=== PATIENT | male | born 1975 | race Caucasian/White ===

== ENCOUNTER 2020-08-29 08:58 | Emergency (ER) | payer MEDICAID, SELFPAY ==
[2020-08-29 09:07] VITALS: BP 157/73; PULSE 99; RESP 16; TEMP 36.7; O2SAT 100; BMI 20.9
[2020-08-29 09:18] LABS: Glucose, Whole Blood 295 mg/dL (60-115)
--- NOTE | 2020-08-29 09:25 | ED_ITS ---
HPI - General Adult General Chief complaint: General Medical Stated complaint: elevated blood sugar Time Seen by Provider: 08/29/20 09:19 Source: patient Mode of arrival: ambulatory Limitations: no limitations History of Present Illness HPI narrative: patient presents to ED for hyperglycemia. Patient states on Mon day he broke his insulin pump. Patient states he has been controlling his glucose insulin with manual Humalog. Patient still feeling nauseous and vomitting and was referred by PCP to the ED to make sure he is not in DKA. Patient states the highest his fingerstick has been is 500. Presently his fingerstick is in the 200s. Related Data Previous Rx's Medication Instructions Recorded insulin glargine U-300 conc 300 15 unit SUBCUT BEDTIME 30 Days 08/29/20 unit/mL (1.5 mL) subcutaneous pen #1.5 ml insulin syringe-needle U-100 0.3 #150 ea 08/29/20 mL 29 gauge x 1/2 pen needle, diabetic 32 gauge x #50 ea 08/29/20 Allergies Allergy/AdvReac Type Severity Reaction Status Date / Time hydroxyzine [From VISTARIL] Allergy Intermediate RASH, Verified 08/29/20 14:59 ANXIOUS quetiapine [Seroquel] Allergy Unknown Unknown Verified 08/29/20 14:59 Review of Systems Review of Systems: Yes all other systems are reviewed and are negative Constitutional: Constitutional: Reports as per HPI and Reports no additional constitutional complaints Eyes: Eyes: Reports as per HPI and Reports no additional eye complaints ENT: Reports system reviewed and no additional complaints, except as documented and Reports as per HPI Cardiovascular: Cardiovascular: Reports as per HPI and Reports no additional c ardiovascular complaints Respiratory: Respiratory: Reports as per HPI and Reports no additional re spiratory complaints Gastrointestinal: Gastrointestinal: Reports as per HPI, Reports no additional gastrointestinal complaints, Reports nausea and Reports vomiting Genitourinary: Genitourinary: Reports no additional male genitourinary complaints and Reports as per HPI Musculoskeletal: Musculoskeletal: Reports no additional musculoskeletal complaints and Reports as per HPI Neurologic: Reports system reviewed and no additional complaints, except as documented, Reports as per HPI and Reports Abnormal speech present Psychiatric: Psychiatric: Reports no additional psychiatric complaints and Reports as per HPI Endocrine: Endocrine: Reports no additional endocrine complaints and Reports as per HPI Comments: Hyperglycemia [facility] Past Medical History Medical History Diabetes Diabetes type 1, uncontrolled Social History Social History Alcohol intake: current Alcohol intake frequency: a few times a week Smoking Status: Never smoker Use of substances other than those prescribed or required for medical reasons: No Advance Directives: No Advance Directives Information Provided: No Physical Exam Vital Signs: Vital Signs: Last Vital Signs Temp 98.1 F 08/29/20 09:07 Pulse 74 08/29/20 13:04 Resp 18 08/29/20 14:00 BP 115/53 L 08/29/20 13:04 Pulse Ox 95 08/29/20 13:04 Body Mass Index 20.9 Const: General: cooperative, healthy appearing, comfortable, no acute distress and well developed HENMT: Head: Yes normal to inspection and Yes No palpable skull fracture present Eyes: General: appearance normal, both eyes and all related structures Visual Connors: normal visual connors by confrontation Neck: Neck: Yes normal visual inspection, Yes full ROM, Yes no lymphadenopathy, Yes no meningeal signs, Yes trachea midline and No tender Chest: Chest palpation & inspection: normal inspection of the chest, normal palpation of entire chest wall and no localized rib tenderness Resp: Effort & Inspection: normal respiratory effort and able to speak in complete sentences Auscultation: clear to auscultation bilaterally, no crackles, no rales, no rhonchi and no wheezes Cardio: Jugular venous distension: no JVD Heart sounds: S1 normal heart sound present and S2 normal heart sound present GI: Inspection: Yes normal to inspection and No abdominal wall ecchymosis Palpation (GI): Soft to palpation, not firm, nontender, no guarding and not rigid : General: No CVA tenderness and Yes no CVA tenderness Back/Spine/Pelvis: Back: no CVA tenderness, No CVA tenderness and No back tenderness Skin: General skin exam: no rashes or lesions noted Neuro: General: gait normal, no meningeal signs and CN's II-XI intact bilaterally Cranial nerves: Yes CN's II-XII intact bilaterally Speech: Abnormal speech present Extrem: General: Yes normal to inspection and Yes full ROM Psych: Appearance: grossly normal, well kempt and not disheveled Course Course Course Narrative: patient will have labs to make sure he is not in DKA. Patient states if he is not in DKA and is discharged patient informs that his PCP already sent the Lantus and Humalog prescription to his pharmacy. Reevaluation(s) Reevaluation #1: patient initial labs had slightly elevated anion gap with posi tive acetone. Patient was given total of 14 units of IV insulin, 4 bags of IV fluids, and Zofran. Patient states he felt better. Patient initial labs showed white blood cell count 17461. most likely due to hyperemesis and vomiting. chest x-ray and urine came back negative. Abdominal is benign and nontender on palpation. Abdominal CT scan not indicated. urinalysis negative for UTI. Repeat labs show decrease in white blood cell count, anion gap resolved and normal electrolytes. Patient is safe for discharge. 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 Patient presently not in DKA. Patient is not vomiting during ED visit. Patient states he will call the insulin pump company tomorrow and fix his insulin pump Medical Decision Making MDM Narrative Medical decision making narrative: hyperglycemia Lab Data Result diagrams: 08/29/20 14:32 08/29/20 14:32 Labs: Lab Results 08/29/20 08/29/20 08/29/20 Range/Units 09:15 09:38 09:38 WBC 19.6 H (4.8-10.8) X10*3/uL RBC 4.66 (4.60-5.80) X10*6/uL Hgb 16.2 (14.0-18.0) g/dl Hct 44.7 (42-52) % MCV 95.9 (80-98) fL MCH 34.8 H (27.0-33.0) pg MCHC 36.2 H (31.0-36.0) g/dl RDW 11.9 (11.0-16.0) % Plt Count 239 (160-400) X10*3/uL MPV 10.3 (9.4-12.4) fL Immature Gran % (Auto) 0.3 (0.0-0.4) % Neut % (Auto) 80.9 H (45-73) % Lymph % (Auto) 7.1 L (20-40) % Person % (Auto) 11.5 H (2-11) % Eos % (Auto) 0.0 (0-4) % Baso % (Auto) 0.2 (0-2) % Lymph # (Auto) 1.4 (1.2-4.9) X10*3/uL Person # (Auto) 2.2 H (0.1-1.2) X10*3/uL Eos # (Auto) 0.0 (0.0-0.4) X10*3/uL Baso # (Auto) 0.0 (0.0-0.2) X10*3/uL Abs Immat Gran (auto) 0.06 H (0.00-0.03) X10*3/uL Absolute Neuts (auto) 15.8 H (2.0-8.3) X10*3/uL Absolute Nucleated RBC 0.000 (0.0-0.012) X10*3/uL Nucleated RBC % (auto) 0.0 (0.0-0.2) /100WBC Smear Tech's Comments VERIFIED PT 12.7 (10.8-13.0) SEC INR 1.1 (0.9-1.1) Sodium (135-145) mmol/L Potassium (3.3-5.1) mmol/l Chloride (96-108) mmol/L Carbon Dioxide (22-29) mmol/L Anion Gap (12-20) BUN (9-16) mg/dL Creatinine (0.5-1.4) mg/dL Estim Creat Clear Calc Estimated GFR POC Glucose 295 H (60-115) mg/dL Random Glucose (60-115) mg/dL Calcium (8.4-10.2) mg/dL Total Bilirubin (0.0-1.0) mg/dL AST (5-37) U/L ALT (0-40) U/L Alkaline Phosphatase (39-117) U/L Total Protein (6.5-8.0) g/dL Albumin (3.5-5.0) g/dL Lipase (8-78) U/L Urine Color Urine Appearance Urine pH (5.0-8.0) Ur Specific [place] (1.005-1.025) Urine Protein (NEG-TRACE) MG/DL Urine Glucose (UA) (NEG) MG/DL Urine Ketones (NEG) MG/DL Urine Blood (NEG) Urine Nitrite (NEG) Ur Leukocyte Esterase (NEG) Urine RBC (0) /HPF Urine WBC (0-4) /HPF Ur Squamous Epith Cells /LPF Urine Bacteria /LPF Urine Sperm Acetone, Qual (Negative) 08/29/20 08/29/20 08/29/20 Range/Units 09:38 12:36 14:32 WBC 14.6 H (4.8-10.8) X10*3/uL RBC 3.85 L (4.60-5.80) X10*6/uL Hgb 13.4 L (14.0-18.0) g/dl Hct 37.5 L (42-52) % MCV 97.4 (80-98) fL MCH 34.8 H (27.0-33.0) pg MCHC 35.7 (31.0-36.0) g/dl RDW 11.9 (11.0-16.0) % Plt Count 180 (160-400) X10*3/uL MPV 10.2 (9.4-12.4) fL Immature Gran % (Auto) 0.4 (0.0-0.4) % Neut % (Auto) 77.3 H (45-73) % Lymph % (Auto) 9.0 L (20-40) % Person % (Auto) 13.1 H (2-11) % Eos % (Auto) 0.1 (0-4) % Baso % (Auto) 0.1 (0-2) % Lymph # (Auto) 1.3 (1.2-4.9) X10*3/uL Person # (Auto) 1.9 H (0.1-1.2) X10*3/uL Eos # (Auto) 0.0 (0.0-0.4) X10*3/uL Baso # (Auto) 0.0 (0.0-0.2) X10*3/uL Abs Immat Gran (auto) 0.06 H (0.00-0.03) X10*3/uL Absolute Neuts (auto) 11.3 H (2.0-8.3) X10*3/uL Absolute Nucleated RBC 0.000 (0.0-0.012) X10*3/uL Nucleated RBC % (auto) 0.0 (0.0-0.2) /100WBC Smear Tech's Comments PT (10.8-13.0) SEC INR (0.9-1.1) Sodium 128 L (135-145) mmol/L Potassium 4.2 (3.3-5.1) mmol/l Chloride 80 L (96-108) mmol/L Carbon Dioxide 31 H (22-29) mmol/L Anion Gap 21 H (12-20) BUN 32 H (9-16) mg/dL Creatinine 1.31 (0.5-1.4) mg/dL Estim Creat Clear Calc 68.8 Estimated GFR 59 POC Glucose 266 H (60-115) mg/dL Random Glucose 318 H (60-115) mg/dL Calcium 8.7 (8.4-10.2) mg/dL Total Bilirubin 1.7 H (0.0-1.0) mg/dL AST 39 H (5-37) U/L ALT 27 (0-40) U/L Alkaline Phosphatase 84 (39-117) U/L Total Protein 7.0 (6.5-8.0) g/dL Albumin 4.2 (3.5-5.0) g/dL Lipase (8-78) U/L Urine Color Urine Appearance Urine pH (5.0-8.0) Ur Specific [place] (1.005-1.025) Urine Protein (NEG-TRACE) MG/DL Urine Glucose (UA) (NEG) MG/DL Urine Ketones (NEG) MG/DL Urine Blood (NEG) Urine Nitrite (NEG) Ur Leukocyte Esterase (NEG) Urine RBC (0) /HPF Urine WBC (0-4) /HPF Ur Squamous Epith Cells /LPF Urine Bacteria /LPF Urine Sperm Acetone, Qual Small H (Negative) 08/29/20 08/29/20 08/29/20 Range/Units 14:32 14:48 14:56 WBC (4.8-10.8) X10*3/uL RBC (4.60-5.80) X10*6/uL Hgb (14.0-18.0) g/dl Hct (42-52) % MCV (80-98) fL MCH (27.0-33.0) pg MCHC (31.0-36.0) g/dl RDW (11.0-16.0) % Plt Count (160-400) X10*3/uL MPV (9.4-12.4) fL Immature Gran % (Auto) (0.0-0.4) % Neut % (Auto) (45-73) % Lymph % (Auto) (20-40) % Person % (Auto) (2-11) % Eos % (Auto) (0-4) % Baso % (Auto) (0-2) % Lymph # (Auto) (1.2-4.9) X10*3/uL Person # (Auto) (0.1-1.2) X10*3/uL Eos # (Auto) (0.0-0.4) X10*3/uL Baso # (Auto) (0.0-0.2) X10*3/uL Abs Immat Gran (auto) (0.00-0.03) X10*3/uL Absolute Neuts (auto) (2.0-8.3) X10*3/uL Absolute Nucleated RBC (0.0-0.012) X10*3/uL Nucleated RBC % (auto) (0.0-0.2) /100WBC Smear Tech's Comments PT (10.8-13.0) SEC INR (0.9-1.1) Sodium 133 L (135-145) mmol/L Potassium 3.4 (3.3-5.1) mmol/l Chloride 93 L (96-108) mmol/L Carbon Dioxide 33 H (22-29) mmol/L Anion Gap 10 L (12-20) BUN 24 H (9-16) mg/dL Creatinine 0.91 (0.5-1.4) mg/dL Estim Creat Clear Calc 99.1 Estimated GFR > 60 POC Glucose 207 H (60-115) mg/dL Random Glucose 233 H (60-115) mg/dL Calcium 7.1 L D (8.4-10.2) mg/dL Total Bilirubin 1.2 H (0.0-1.0) mg/dL AST 27 (5-37) U/L ALT 21 (0-40) U/L Alkaline Phosphatase 58 D (39-117) U/L Total Protein 4.9 L D (6.5-8.0) g/dL Albumin 3.2 L D (3.5-5.0) g/dL Lipase 23 (8-78) U/L Urine Color YELLOW Urine Appearance CLEAR Urine pH 6.5 (5.0-8.0) Ur Specific [place] 1.020 (1.005-1.025) Urine Protein 1+ H (NEG-TRACE) MG/DL Urine Glucose (UA) NEG (NEG) MG/DL Urine Ketones >=80 (NEG) MG/DL Urine Blood TRACE (NEG) Urine Nitrite NEG (NEG) Ur Leukocyte Esterase NEG (NEG) Urine RBC 0-2 (0) /HPF Urine WBC 0 (0-4) /HPF Ur Squamous Epith Cells NONE /LPF Urine Bacteria 1+ /LPF Urine Sperm NOTED Acetone, Qual Small H (Negative) Discharge Plan Discharge Clinical Impression: Hyperglycemia due to diabetes mellitus Patient Disposition: Home, Self-Care Instructions: Diabetic Hyperglycemia (ED) Additional Instructions: return to the ED for weakness, dizziness, chest pain, shortness of breath, abdominal pain, intractable vomiting, fever, chills, nausea, or any other concerning symptoms. Prescriptions: No Action Toujaz SoloStar U-300 Insulin 300 unit/mL (1.5 mL) insulin pen 15 unit subcut BEDTIME 30 Days Qty: 1.5 RF: 4 (DME) insulin syringe-needle U-100 [BD Insulin Syringe] 0.3 mL 29 gauge x 1/2 syringe See Rx Instructions .ROUTE .MEDSUPPLY Qty: 150 RF: 5 (DME) pen needle, diabetic [BD Felisha 2nd Gen Pen Needle] 32 gauge x 5/32 needle See Rx Instructions .ROUTE .MEDSUPPLY Qty: 50 RF: 4 Referrals: Linda Carrasquillo NP [Primary Care Provider] - 2 days ( Hyperglycemia. Patient is not in DKA.) Stand Alone Forms: Work/School Release Interventions: ED Discharge Assessment Last Done: 08/29/20 16:44 Discharge Date/Time: 08/29/20 17:04 Print Language: Ecuadorean
[2020-08-29] MEDS: 0.9 % Sodium Chloride 1,000 ML 999 ML IVCONT ×4 (09:39→12:47)
[2020-08-29 09:55] LABS: Basophils Percent Auto 0.2 % (0-2); Hematocrit 44.7 % (42-52); Hemoglobin 16.2 g/dl (14.0-18.0); Imm Gran Abs Auto 0.06 X10*3/uL (0.00-0.03); Imm Gran Pct Auto 0.3 % (0.0-0.4); Lymphocytes Absolute Auto 1.4 X10*3/uL (1.2-4.9); Lymphocytes Percent Auto 7.1 % (20-40); MANUAL DIFF FLAG SCAN; Mean Corpuscular HGB Conc 36.2 g/dl (31.0-36.0); Mean Corpuscular Hemoglobin 34.8 pg (27.0-33.0); Mean Corpuscular Volume 95.9 fL (80-98); Mean Platelet Volume 10.3 fL (9.4-12.4); Monocytes Absolute Auto 2.2 X10*3/uL (0.1-1.2); Monocytes Percent Auto 11.5 % (2-11); Neutrophils Absolute Auto 15.8 X10*3/uL (2.0-8.3); Neutrophils Percent Auto 80.9 % (45-73); Platelet Count 239 X10*3/uL (160-400); Red Blood Count 4.66 X10*6/uL (4.60-5.80); Red Cell Distribution Width 11.9 % (11.0-16.0); SCAN SMEAR FLAG 1; White Blood Count 19.6 X10*3/uL (4.8-10.8)
[2020-08-29] MEDS: ondansetron HCL 4 MG/2 ML VIAL IVPUSH (09:55)
[2020-08-29] MEDS: Insulin Regular, Human 100 UNIT/ML 3 ML VIAL 6 UNIT IVPUSH (09:55)
[2020-08-29 10:03] LABS: INTERNATIONAL NORM RATIO 1.1 (0.9-1.1); Prothrombin Time 12.7 SEC (10.8-13.0)
[2020-08-29 10:23] LABS: Alanine Aminotransferase 27 U/L (0-40); Albumin Level 4.2 g/dL (3.5-5.0); Alkaline Phosphatase 84 U/L (39-117); Anion Gap 21 (12-20); Aspartate Amino Transferase 39 U/L (5-37); Bilirubin Total 1.7 mg/dL (0.0-1.0); Blood Urea Nitrogen 32 mg/dL (9-16); Calcium 8.7 mg/dL (8.4-10.2); Carbon Dioxide 31 mmol/L (22-29); Chloride 80 mmol/L (96-108); Creatinine Clr Calc Pharmacy 68.8; Estimated Glomerular Filt Rate 59; Glucose Random 318 mg/dL (60-115); Potassium 4.2 mmol/l (3.3-5.1); Sodium 128 mmol/L (135-145)
[2020-08-29 10:31] LABS: Acetone, serum QL Small (Negative)
[2020-08-29 10:33] LABS: SLIDE REVIEW VERIFIED
--- NOTE | 2020-08-29 11:43 | XR_ITS ---
EXAMINATION: XR CHEST CLINICAL INFORMATION: Elevated white blood cell count, rule out pneumonia. COMPARISON: 12/24/2016 chest radiograph. TECHNIQUE: Frontal view of the chest was obtained. FINDINGS: No significant abnormality is noted involving the heart, lungs, mediastinum, bony thorax or soft tissues. XR/XR chest 1V IMPRESSION: No acute cardiopulmonary process.
[2020-08-29 12:00] VITALS: RESP 16
[2020-08-29 12:41] LABS: Glucose, Whole Blood 266 mg/dL (60-115)
[2020-08-29] MEDS: Insulin Regular, Human 100 UNIT/ML 3 ML VIAL 8 UNIT SUBCUT (12:47)
[2020-08-29 13:04] VITALS: BP 115/53; PULSE 74; RESP 16; O2SAT 95
[2020-08-29 14:00] VITALS: RESP 18
[2020-08-29 14:52] LABS: Glucose, Whole Blood 207 mg/dL (60-115)
[2020-08-29 14:54] LABS: Basophils Percent Auto 0.1 % (0-2); Eosinophils Percent Auto 0.1 % (0-4); Hematocrit 37.5 % (42-52); Hemoglobin 13.4 g/dl (14.0-18.0); Imm Gran Abs Auto 0.06 X10*3/uL (0.00-0.03); Imm Gran Pct Auto 0.4 % (0.0-0.4); Lymphocytes Absolute Auto 1.3 X10*3/uL (1.2-4.9); MANUAL DIFF FLAG SCAN; Mean Corpuscular HGB Conc 35.7 g/dl (31.0-36.0); Mean Corpuscular Hemoglobin 34.8 pg (27.0-33.0); Mean Corpuscular Volume 97.4 fL (80-98); Mean Platelet Volume 10.2 fL (9.4-12.4); Monocytes Absolute Auto 1.9 X10*3/uL (0.1-1.2); Monocytes Percent Auto 13.1 % (2-11); Neutrophils Absolute Auto 11.3 X10*3/uL (2.0-8.3); Neutrophils Percent Auto 77.3 % (45-73); Platelet Count 180 X10*3/uL (160-400); Red Blood Count 3.85 X10*6/uL (4.60-5.80); Red Cell Distribution Width 11.9 % (11.0-16.0); SCAN SMEAR FLAG 1; White Blood Count 14.6 X10*3/uL (4.8-10.8)
[2020-08-29 15:18] LABS: Glucose Urine UA NEG (NEG); Leukocyte Esterase Urine NEG (NEG); Nitrite Urine NEG (NEG); PH 6.5 (5.0-8.0); Urine Blood TRACE (NEG); Urine Ketones >=80 MG/DL (NEG); Urine Protein 1+ MG/DL (NEG-TRACE)
[2020-08-29 15:19] LABS: Appearance Urine CLEAR; Color Urine YELLOW
[2020-08-29 15:39] LABS: Alanine Aminotransferase 21 U/L (0-40); Albumin Level 3.2 g/dL (3.5-5.0); Alkaline Phosphatase 58 U/L (39-117); Anion Gap 10 (12-20); Aspartate Amino Transferase 27 U/L (5-37); Bilirubin Total 1.2 mg/dL (0.0-1.0); Blood Urea Nitrogen 24 mg/dL (9-16); Calcium 7.1 mg/dL (8.4-10.2); Carbon Dioxide 33 mmol/L (22-29); Chloride 93 mmol/L (96-108); Creatinine Clr Calc Pharmacy 99.1; Estimated Glomerular Filt Rate > 60; Glucose Random 233 mg/dL (60-115); Lipase 23 U/L (8-78); Potassium 3.4 mmol/l (3.3-5.1); Sodium 133 mmol/L (135-145); Total Protein 4.9 g/dL (6.5-8.0)
[2020-08-29 15:41] LABS: Bacteria Urine 1+ /LPF; RBC Urine 0-2 /HPF (0); Sperm Urine NOTED; WBC Urine 0 /HPF (0-4)
[2020-08-29 15:57] LABS: Acetone, serum QL Small (Negative)
== END 2020-08-29 17:04 | disposition home or self-care (01) ==
PROVIDERS: Physician Assistant; Emergency Provider Emergency Medicine; PCP Nurse Practitioner Family
DX: E11.65 Type 2 diabetes mellitus with hyperglycemia (principal); Z79.899 Other long term (current) drug therapy; Z79.4 Long term (current) use of insulin
CPT/HCPCS: 36415; 71045; 80053; 81001; 81003; 82009; 82947; 83690; 85025; 85610; 96361; 96374; 96375; 99284; 99285; J2405

== ENCOUNTER → 2020-08-31 12:53 | Outpatient (BNVA) | payer MEDICAID, SELFPAY | PROVIDERS: PCP Nurse Practitioner Family; Referring Provider Nurse Practitioner Family; Visit Provider Internal Medicine Endocrinology, Diabetes & Metabolism | DX: Z46.81 Encounter for fitting and adjustment of insulin pump (principal); E10.65 Type 1 diabetes mellitus with hyperglycemia; E10.649 Type 1 diabetes mellitus with hypoglycemia without coma; E55.9 Vitamin D deficiency, unspecified; Z79.899 Other long term (current) drug therapy | CPT/HCPCS: 82947; 99212 ==

== ENCOUNTER → 2020-09-12 08:20 | Outpatient (BNVA) | payer MEDICAID, SELFPAY | PROVIDERS: PCP Nurse Practitioner Family; Visit Provider Internal Medicine Endocrinology, Diabetes & Metabolism | DX: E10.649 Type 1 diabetes mellitus with hypoglycemia without coma (principal); E10.65 Type 1 diabetes mellitus with hyperglycemia; E55.9 Vitamin D deficiency, unspecified; Z96.41 Presence of insulin pump (external) (internal); Z46.81 Encounter for fitting and adjustment of insulin pump | CPT/HCPCS: 82947; 99212 ==

== ENCOUNTER → 2020-12-13 08:23 | Outpatient (BNVA) | payer MEDICAID, SELFPAY | PROVIDERS: PCP Nurse Practitioner Family; Visit Provider Internal Medicine Endocrinology, Diabetes & Metabolism | DX: E10.65 Type 1 diabetes mellitus with hyperglycemia (principal); E10.649 Type 1 diabetes mellitus with hypoglycemia without coma; E55.9 Vitamin D deficiency, unspecified | CPT/HCPCS: 82947; 99212 ==

== ENCOUNTER 2021-03-18 09:00 | Outpatient (REF) | payer MEDICAID, SELFPAY ==
[2021-03-18 11:05] LABS: Alanine Aminotransferase 24 U/L (0-40); Albumin Level 4.2 g/dL (3.5-5.0); Alkaline Phosphatase 106 U/L (39-117); Anion Gap 13 (12-20); Aspartate Amino Transferase 45 U/L (5-37); Bilirubin Total 0.9 mg/dL (0.0-1.0); Blood Urea Nitrogen 13 mg/dL (9-16); Calcium 9.2 mg/dL (8.4-10.2); Carbon Dioxide 34 mmol/L (22-29); Chloride 102 mmol/L (96-108); Cholesterol 169 mg/dL; Estimated Glomerular Filt Rate > 60; Glucose Fasting 199 mg/dL (60-99); HDL Cholesterol 118 mg/dL; LDL Cholesterol Calculated 25 mg/dl; Potassium 4.6 mmol/L (3.3-5.1); Sodium 144 mmol/L (135-145); Total Protein 6.6 g/dL (6.5-8.0); Triglycerides 130 mg/dL
[2021-03-18 11:26] LABS: Free T4 (Free Thyroxine) 1.07 ng/dL (0.71-1.85); Thyroid Stimulating Hormone 0.76 uIU/mL (0.32-4.0); Vitamin D 25-OH Total 15.6 ng/mL (>30)
[2021-03-18 11:32] LABS: Vitamin B12 213 pg/mL (200-900)
[2021-03-18 11:56] LABS: Creatinine Urine 160.18 mg/dL; Microalbum/Creatinine Ratio Ur 4.9 ug/mg cr
[2021-03-20 05:42] LABS: LDL Cholesterol Direct 32 mg/dL (<100)
== END 2021-03-18 09:01 | disposition home or self-care (01) ==
LOC: HO.10HDL 09:00
PROVIDERS: PCP Nurse Practitioner Family; Visit Provider Internal Medicine Endocrinology, Diabetes & Metabolism
DX: E10.65 Type 1 diabetes mellitus with hyperglycemia (principal); E10.649 Type 1 diabetes mellitus with hypoglycemia without coma; E55.9 Vitamin D deficiency, unspecified; Z79.4 Long term (current) use of insulin; Z71.3 Dietary counseling and surveillance
CPT/HCPCS: 36415; 80053; 80061; 82043; 82306; 82607; 82947; 83721; 84439; 84443; 99212

== ENCOUNTER → 2021-07-16 09:51 | Outpatient (BNVA) | payer MEDICAID, SELFPAY | PROVIDERS: PCP Nurse Practitioner Family; Visit Provider Nurse Practitioner Gerontology | DX: E10.65 Type 1 diabetes mellitus with hyperglycemia (principal); E10.649 Type 1 diabetes mellitus with hypoglycemia without coma; E55.9 Vitamin D deficiency, unspecified | CPT/HCPCS: 82947; 83036; 99212 ==

== ENCOUNTER 2021-08-09 21:14 | Emergency (ER) | payer MEDICAID, SELFPAY ==
--- NOTE | 2021-08-09 | ECG_ITS ---
Test Reason : recheck /abnormal Blood Pressure : / mmHG Vent. Rate : 083 BPM Atrial Rate : 083 BPM P-R Int : 160 ms QRS Dur : 088 ms QT Int : 396 ms P-R-T Axes : 060 084 076 degrees QTc Int : 465 ms Normal sinus rhythm Normal ECG T wave amplitude has increased in Referred By: Simone Kinsey Electronically Signed By:LEATHA ALMANZAR MD
[2021-08-09 21:21] LABS: Glucose, Whole Blood 72 mg/dL (60-115)
[2021-08-09 21:29] VITALS: BP 128/78; PULSE 74; PULSE 78; RESP 18; TEMP 36.7; O2SAT 96; BMI 22.4
--- NOTE | 2021-08-09 21:29 | ED_ITS ---
HPI - General Adult General Chief complaint: Recheck/Abnormal Lab/Rx Stated complaint: hypoglycemia Time Seen by Provider: 08/09/21 21:29 Source: patient and EMS Mode of arrival: EMS Limitations: no limitations History of Present Illness HPI narrative: 45-year-old male history of insulin-dependent diabetes control is diabetes with insulin pump, patient was found unresponsive blood sugar was 20, patient partially responded to D50 given by EMS, then patient shortly became unresponsive and diaphoretic blood sugar was 32 patient was given 250 cc of D10. Patient now is conscious. In the ED the insulin pump was disconnected patient blood sugar is 73. Patient declined any change in his daily routine. Related Data Home Medications Medication Instructions Recorded Confirmed clonazepam 0.5 mg tablet 0.5 mg PO DAILY 07/16/21 07/16/21 Previous Rx's Medication Instructions Recorded insulin syringe-needle U-100 0.3 #150 ea 08/29/20 mL 29 gauge x 1/2 (BD Insulin Syringe) pen needle, diabetic 32 gauge x #50 ea 08/29/20 5/32 (BD Felisha 2nd Gen Pen Needle) cholecalciferol (vitamin D3) 50 50 mcg PO DAILY 30 Days #30 cap 03/18/21 mcg (2,000 unit) capsule insulin glargine U-300 conc 300 15 unit SUBCUT BEDTIME #1.5 ml 04/10/21 unit/mL (1.5 mL) subcutaneous pen (Toujeo SoloStar U-300 Insulin) Humalog U-100 Insulin 100 unit/mL See Rx Instructions SUBCUT DAILY 06/14/21 subcutaneous solution (insulin 30 Days #30 ml NS lispro) blood sugar diagnostic (FreeStyle #300 ea 06/21/21 Lite Strips) glucagon 3 mg/actuation nasal 3 mg INTRANASAL ONCE 30 Days #2 ea 07/16/21 spray (Baqsimi) Allergies Allergy/AdvReac Type Severity Reaction Status Date / Time hydroxyzine [From VISTARIL] Allergy Intermediate RASH, Verified 08/09/21 21:23 ANXIOUS quetiapine [Seroquel] Allergy Unknown Unknown Verified 08/09/21 21:23 Review of Systems Review of Systems: All other systems are reviewed and are negative Constitutional: Reports as per HPI and Reports no additional constitutional complaints Eyes: Reports as per HPI and Reports no additional eye complaints Reports system reviewed and no additional complaints, except as documented Cardiovascular: Reports as per HPI and Reports no additional cardiovascular complaints Respiratory: Reports as per HPI and Reports no additional respiratory complaints Gastrointestinal: Reports as per HPI and Reports no additional gastrointestinal complaints Genitourinary: Reports no additional female genitourinary complaints Musculoskeletal: Reports no additional musculoskeletal complaints Skin/Breast: Reports system reviewed and no additional complaints, except as docu Psychiatric: Reports no additional psychiatric complaints Endocrine: Reports no additional endocrine complaints Hematologic/Lymphatic: Reports no additional hematologic/lymphatic complaints Allergic/Immunologic: Reports no additional allergic/immunologic complaints Reports system reviewed and no additional complaints, except as documented and R eports Abnormal speech present [facility] Past Medical History Medical History Depression Diabetes Diabetes type 1, uncontrolled History of drug abuse Hypoglycemia unawareness associated with type 1 diabetes mellitus Vitamin D deficiency Surgical History Hx of hernia repair Family History Family History Father No problems noted. Mother No problems noted. Social History Social History Household Members: Family Household Members Other:: mother Alcohol intake: current Alcohol intake frequency: a few times a week Patient Tobacco Use Status: Current someday Tobacco user Substance Use Type: Marijuana Advance Directives: No Advance Directives Information Provided: Yes Physical Exam Vital Signs: Vital Signs: Last Vital Signs Temp 97.9 F 08/09/21 22:00 Pulse 84 08/09/21 22:00 Resp 18 08/09/21 21:29 BP 135/78 08/09/21 22:00 Pulse Ox 96 08/09/21 22:00 Body Mass Index 22.4 Vital signs have been reviewed as appeared to be correct. Blood pressure normal. Heart rate normal. Respiration rate normal. Temperature normal. Oxygen saturation normal. Appearance: Alert. Oriented X3. No acute distress. Head: Normal external exam. Normocephalic. Atraumatic. No Jung signs noted. No raccoon eyes noted Eyes: PERRLA. EOMI. Conjunctiva and sclera normal. Eyelids normal. ENT: TM's Normal. Pharynx normal. Uvula midline. Moist mucous membranes. No trismus noted. No drooling noted. No muffled voice noted. Neck: Normal inspection. Neck supple. FROM. No adenopathy. Thyroid Normal. No meningeal signs. No neck mass noted. CVS: Normal heart rate and rhythm. Heart sound normal. No murmurs noted. Pulses normal throughout. Respiratory: No respiratory distress. Painless inspiration. Breath sounds normal. No wheezes/rales/rhonchi noted. Chest nontender. No accessory muscle usage noted or decreased air movement noted. Abdomen: Soft and nontender. Bowel sounds normal in all 4 quadrants. No distention noted. No organomegaly noted. No visible injury noted. Back: No CVA tenderness. Full range of motion noted. Skin: Skin warm and dry. Normal skin color. Normal skin turgor. No rashes/lesions/lacerations noted. Extremities: No lower extremity edema. Extremities exhibit normal range of motion. Extremities nontender. Neuro: Oriented X 3. Cranial nerve exam: II-XII are grossly intact No motor deficit. No sensory deficit. Reflexes normal. Course Course Course Narrative: Assessment and plan. 45-year-old male insulin-dependent diabetes use insulin pump, patient found to be hypoglycemic with unresponsiveness multiple times, patient was given mom multiple D25/D10/diet/D50 in the ED and by EMS, patient had persistent hypogl ycemia. Clinically no source of infection. Will admit the patient for monitoring blood sugar. Medical Decision Making Medical Records Medical records reviewed: Yes I reviewed the patient's medical records. Lab Data Lab results reviewed: Yes I reviewed the patient's lab results. Result diagrams: 08/09/21 21:46 08/09/21 21:46 Labs: Lab Results 08/09/21 08/09/21 08/09/21 Range/Units 21:17 21:46 21:46 WBC 8.1 (4.8-10.8) X10*3/uL RBC 4.00 L (4.60-5.80) X10*6/uL Hgb 14.9 (14.0-18.0) g/dl Hct 42.7 (42-52) % MCV 106.8 H (80-98) fL MCH 37.3 H (27.0-33.0) pg MCHC 34.9 (31.0-36.0) g/dl RDW 13.5 (11.0-16.0) % Plt Count 181 (160-400) X10*3/uL MPV 9.9 (9.4-12.4) fL Immature Gran % (Auto) 1.0 H (0.0-0.4) % Neut % (Auto) 61.6 (45-73) % Lymph % (Auto) 22.6 (20-40) % [place] % (Auto) 12.7 H (2-11) % Eos % (Auto) 1.6 (0-4) % Baso % (Auto) 0.5 (0-2) % Lymph # (Auto) 1.8 (1.2-4.9) X10*3/uL [place] # (Auto) 1.0 (0.1-1.2) X10*3/uL Eos # (Auto) 0.1 (0.0-0.4) X10*3/uL Baso # (Auto) 0.0 (0.0-0.2) X10*3/uL Abs Immat Gran (auto) 0.08 H (0.00-0.03) X10*3/uL Absolute Neuts (auto) 5.0 (2.0-8.3) X10*3/uL Absolute Nucleated RBC 0.000 (0.0-0.012) X10*3/uL Nucleated RBC % (auto) 0.0 (0.0-0.2) /100WBC Sodium 142 (135-145) mmol/L Potassium 3.0 L D (3.3-5.1) mmol/L Chloride 106 (96-108) mmol/L Carbon Dioxide 22 (22-29) mmol/L Anion Gap 17 (12-20) BUN 5 L D (9-16) mg/dL Creatinine 0.75 (0.5-1.4) mg/dL Estim Creat Clear Calc 116.1 Estimated GFR > 60 POC Glucose 72 (60-115) mg/dL Random Glucose 45 L* (60-115) mg/dL Calcium 8.2 L D (8.4-10.2) mg/dL Total Bilirubin 0.4 (0.0-1.0) mg/dL Direct Bilirubin 0.2 (0.0-0.5) mg/dL AST 137 H (5-37) U/L ALT 85 H (0-40) U/L Alkaline Phosphatase 150 H D (39-117) U/L Total Protein 6.0 L (6.5-8.0) g/dL Albumin 3.8 (3.5-5.0) g/dL Lipase 27 (8-78) U/L Urine Color Urine Appearance Urine pH (5.0-8.0) Ur Specific [place] (1.005-1.025) Urine Protein (NEG-TRACE) MG/DL Urine Glucose (UA) (NEG) MG/DL Urine Ketones (NEG) MG/DL Urine Blood (NEG) Urine Nitrite (NEG) Ur Leukocyte Esterase (NEG) 08/09/21 Range/Units 22:31 WBC (4.8-10.8) X10*3/uL RBC (4.60-5.80) X10*6/uL Hgb (14.0-18.0) g/dl Hct (42-52) % MCV (80-98) fL MCH (27.0-33.0) pg MCHC (31.0-36.0) g/dl RDW (11.0-16.0) % Plt Count (160-400) X10*3/uL MPV (9.4-12.4) fL Immature Gran % (Auto) (0.0-0.4) % Neut % (Auto) (45-73) % Lymph % (Auto) (20-40) % [place] % (Auto) (2-11) % Eos % (Auto) (0-4) % Baso % (Auto) (0-2) % Lymph # (Auto) (1.2-4.9) X10*3/uL [place] # (Auto) (0.1-1.2) X10*3/uL Eos # (Auto) (0.0-0.4) X10*3/uL Baso # (Auto) (0.0-0.2) X10*3/uL Abs Immat Gran (auto) (0.00-0.03) X10*3/uL Absolute Neuts (auto) (2.0-8.3) X10*3/uL Absolute Nucleated RBC (0.0-0.012) X10*3/uL Nucleated RBC % (auto) (0.0-0.2) /100WBC Sodium (135-145) mmol/L Potassium (3.3-5.1) mmol/L Chloride (96-108) mmol/L Carbon Dioxide (22-29) mmol/L Anion Gap (12-20) BUN (9-16) mg/dL Creatinine (0.5-1.4) mg/dL Estim Creat Clear Calc Estimated GFR POC Glucose (60-115) mg/dL Random Glucose (60-115) mg/dL Calcium (8.4-10.2) mg/dL Total Bilirubin (0.0-1.0) mg/dL Direct Bilirubin (0.0-0.5) mg/dL AST (5-37) U/L ALT (0-40) U/L Alkaline Phosphatase (39-117) U/L Total Protein (6.5-8.0) g/dL Albumin (3.5-5.0) g/dL Lipase (8-78) U/L Urine Color YELLOW Urine Appearance CLEAR Urine pH 7.0 (5.0-8.0) Ur Specific [place] 1.020 (1.005-1.025) Urine Protein NEG (NEG-TRACE) MG/DL Urine Glucose (UA) 100 H (NEG) MG/DL Urine Ketones NEG (NEG) MG/DL Urine Blood NEG (NEG) Urine Nitrite NEG (NEG) Ur Leukocyte Esterase NEG (NEG) Discharge Plan Discharge Clinical Impression: Hypoglycemia due to insulin Patient Disposition: Admitted As Inpatient Prescriptions: No Action (DME) insulin syringe-needle U-100 [BD Insulin Syringe] 0.3 mL 29 gauge x 1/2 syringe See Rx Instructions .ROUTE .MEDSUPPLY Qty: 150 RF: 5 (DME) pen needle, diabetic [BD Felisha 2nd Gen Pen Needle] 32 gauge x 5/32 needle See Rx Instructions .ROUTE .MEDSUPPLY Qty: 50 RF: 4 cholecalciferol (vitamin D3) 50 mcg (2,000 unit) capsule 50 mcg PO DAILY 30 Days Qty: 30 RF: 6 insulin glargine U-300 conc [Toujeo SoloStar U-300 Insulin] 300 unit/mL (1.5 mL) insulin pen 15 unit subcut BEDTIME Qty: 1.5 RF: 2 insulin lispro [Humalog U-100 Insulin] 100 unit/mL solution See Rx Instructions subcut DAILY 30 Days Qty: 30 RF: 6 (DME) FreeStyle Lite Strips Strip See Rx Instructions .ROUTE .MEDSUPPLY Qty: 300 RF: 11 clonazepam 0.5 mg tablet 0.5 mg PO DAILY RF: 0 Baqsimi 3 mg/actuation spray,non-aerosol 3 mg intranasal ONCE 30 Days Qty: 2 RF: 6
[2021-08-09 21:50] LABS: MANUAL DIFF FLAG NO
[2021-08-09 21:52] LABS: Basophils Percent Auto 0.5 % (0-2); Eosinophils Absolute Auto 0.1 X10*3/uL (0.0-0.4); Eosinophils Percent Auto 1.6 % (0-4); Hematocrit 42.7 % (42-52); Hemoglobin 14.9 g/dl (14.0-18.0); Imm Gran Abs Auto 0.08 X10*3/uL (0.00-0.03); Lymphocytes Absolute Auto 1.8 X10*3/uL (1.2-4.9); Lymphocytes Percent Auto 22.6 % (20-40); Mean Corpuscular HGB Conc 34.9 g/dl (31.0-36.0); Mean Corpuscular Hemoglobin 37.3 pg (27.0-33.0); Mean Corpuscular Volume 106.8 fL (80-98); Mean Platelet Volume 9.9 fL (9.4-12.4); Monocytes Percent Auto 12.7 % (2-11); Neutrophils Percent Auto 61.6 % (45-73); Platelet Count 181 X10*3/uL (160-400); Red Cell Distribution Width 13.5 % (11.0-16.0); White Blood Count 8.1 X10*3/uL (4.8-10.8)
[2021-08-09 22:00] VITALS: BP 135/78; PULSE 84; TEMP 36.6; O2SAT 96
[2021-08-09 22:14] LABS: Alanine Aminotransferase 85 U/L (0-40); Albumin Level 3.8 g/dL (3.5-5.0); Alkaline Phosphatase 150 U/L (39-117); Anion Gap 17 (12-20); Aspartate Amino Transferase 137 U/L (5-37); Bilirubin Direct 0.2 mg/dL (0.0-0.5); Bilirubin Total 0.4 mg/dL (0.0-1.0); Blood Urea Nitrogen 5 mg/dL (9-16); Calcium 8.2 mg/dL (8.4-10.2); Carbon Dioxide 22 mmol/L (22-29); Chloride 106 mmol/L (96-108); Creatinine Clr Calc Pharmacy 116.1; Estimated Glomerular Filt Rate > 60; Glucose Random 45 mg/dL (60-115); Lipase 27 U/L (8-78); Sodium 142 mmol/L (135-145)
[2021-08-09 22:37] LABS: Appearance Urine CLEAR; Color Urine YELLOW; Glucose Urine UA 100 MG/DL (NEG); Leukocyte Esterase Urine NEG (NEG); Nitrite Urine NEG (NEG); Urine Blood NEG (NEG); Urine Ketones NEG (NEG); Urine Protein NEG (NEG-TRACE)
--- NOTE | 2021-08-09 22:57 | PM.IMHP ---
History of Present Illness Date of Service: 08/09/21 Chief Complaint: Unresponsive episode 45-year-old male with a past medical history of type 1 diabetes, anxiety, vitamin-D deficiency presented to the hospital with a chief complaint of unresponsive episode. Patient mentioned that he had his dinner and put in the causing to his insulin pump and few minutes later he fell like sweaty; told his mother that he is not feeling well and also to be over reduce; by the time she came in with orange juice he passed out and the lacrosse coach; denies any falls; subsequently EMS was called in; who give D50; patient on showed that he probably feed the insulin pump with extra carbs and probably received an extra bolus dose. The EMS came in his fingerstick glucose was noted to be 20; patient was sweating. Patient denies any chest pain palpitations lightheadedness or dizziness. Denies any numbness tingling or focal weakness. Denies any use of excessive insulins. Denies any fever chills cough. Denies any urinary symptoms. Review of all other systems is negative except mentioned above ER course: Per ER team patient noted to have brief episode of unresponsive episode; at the time noted to have fingerstick glucose in 26; received sugars; improved; in the ER patient had another episode of hypoglycemia to 40; given D50; mental status improved. Exam nonfocal. No signs of infection. Admitted to the hospital for further management [facility] Medical History Depression Diabetes Diabetes type 1, uncontrolled History of drug abuse Hypoglycemia unawareness associated with type 1 diabetes mellitus Vitamin D deficiency Family History Father No problems noted. Mother No problems noted. Pertinent family history: As mentioned above Surgical History Hx of hernia repair Social History Household Members: Family Household Members Other:: mother Alcohol intake: current Alcohol intake frequency: a few times a week Patient Tobacco Use Status: Current someday Tobacco user Substance Use Type: Marijuana Advance Directives: No Advance Directives Information Provided: Yes Meds Allergies Allergy/AdvReac Type Severity Reaction Status Date / Time hydroxyzine [From VISTARIL] Allergy Intermediate RASH, Verified 08/09/21 21:23 ANXIOUS quetiapine [Seroquel] Allergy Unknown Unknown Verified 08/09/21 21:23 Home Medications Medication Instructions Recorded Confirmed Last Taken Type clonazepam 0.5 mg tablet 0.5 mg PO BID 07/16/21 08/10/21 Unknown History cholecalciferol (vitamin D3) 50 100 mcg PO DAILY 08/10/21 08/10/21 Unknown History mcg (2,000 unit) capsule clonidine HCl 0.1 mg tablet 1 tab PO DAILY 08/10/21 08/10/21 Unknown History Physical Exam Vital Signs and Narrative: Vital Signs: Last Vital Signs Temp 97.9 F 08/09/21 22:00 Pulse 84 08/09/21 22:00 Resp 18 08/09/21 21:29 BP 135/78 08/09/21 22:00 Pulse Ox 96 08/09/21 22:00 Body Mass Index 22.4 Gen: Appears be in no acute distress HEENT: NCAT, Moist mucosa. Pulmonary: Vesicular breath sounds, fair air entry CVS: Normal S1-S2 Abdomen: BS+, Soft, Nontender Extremities: Warm well perfused Neuro: Alert and awake. Results Labs CBC and Chem 7: 08/09/21 21:46 08/09/21 21:46 Labs: Laboratory Results - last 24 hr 08/09/21 08/09/21 08/09/21 21:17 21:46 21:46 MCV 106.8 H MCH 37.3 H MCHC 34.9 RDW 13.5 Plt Count 181 MPV 9.9 Immature Gran % (Auto) 1.0 H Neut % (Auto) 61.6 Lymph % (Auto) 22.6 [place] % (Auto) 12.7 H Eos % (Auto) 1.6 Baso % (Auto) 0.5 Lymph # (Auto) 1.8 [place] # (Auto) 1.0 Eos # (Auto) 0.1 Baso # (Auto) 0.0 Abs Immat Gran (auto) 0.08 H Absolute Neuts (auto) 5.0 Absolute Nucleated RBC 0.000 Nucleated RBC % (auto) 0.0 Anion Gap 17 Estim Creat Clear Calc 116.1 Estimated GFR > 60 POC Glucose 72 Random Glucose 45 L* Calcium 8.2 L D Total Bilirubin 0.4 Direct Bilirubin 0.2 AST 137 H ALT 85 H Alkaline Phosphatase 150 H D Total Protein 6.0 L Albumin 3.8 Lipase 27 Urine Color Urine Appearance Urine pH Ur Specific [place] Urine Protein Urine Glucose (UA) Urine Ketones Urine Blood Urine Nitrite Ur Leukocyte Esterase 08/09/21 22:31 MCV MCH MCHC RDW Plt Count MPV Immature Gran % (Auto) Neut % (Auto) Lymph % (Auto) [place] % (Auto) Eos % (Auto) Baso % (Auto) Lymph # (Auto) [place] # (Auto) Eos # (Auto) Baso # (Auto) Abs Immat Gran (auto) Absolute Neuts (auto) Absolute Nucleated RBC Nucleated RBC % (auto) Anion Gap Estim Creat Clear Calc Estimated GFR POC Glucose Random Glucose Calcium Total Bilirubin Direct Bilirubin AST ALT Alkaline Phosphatase Total Protein Albumin Lipase Urine Color YELLOW Urine Appearance CLEAR Urine pH 7.0 Ur Specific [place] 1.020 Urine Protein NEG Urine Glucose (UA) 100 H Urine Ketones NEG Urine Blood NEG Urine Nitrite NEG Ur Leukocyte Esterase NEG Assessment and Plan (1) Hypoglycemia unawareness associated with type 1 diabetes mellitus: Status: Acute 45-year-old male with a past medical history of type 1 diabetes, anxiety, vitamin-D deficiency presented to the hospital with a chief complaint of unresponsive episode. In the setting of hypoglycemia. Admitted for further management. Recurrent hypoglycemia: Improving with D50. Continue D5 half NS. Patient has been started on the diet. Monitor fingerstick glucose closely Seizure precautions Hold home Lantus for now. Will obtain hypoglycemia panel Unresponsive episode: In the setting hypoglycemia. Exam nonfocal. Monitor on telemetry. Cycle enzymes Type 1 diabetes: pt wants to continue his insulin pump; Recommended to continue only basal insulin for now and to hold Bolus insulin in the pump. DVT prophylaxis: SCD boots Code status: Full code Quality Stroke Does the patient have a stroke diagnosis?: No VTE Prior VTE?: No VTE Risk Level:: Medical - low VTE Device Contraindication: N/A - Device Ordered VTE Drug Contraindication: Treatment Not Indicated
[2021-08-09 23:25] VITALS: BP 148/72; PULSE 81; RESP 16; TEMP 36.6; O2SAT 97
[2021-08-09 23:31] LABS: Glucose, Whole Blood 152 mg/dL (60-115)
[2021-08-09 23:31] LABS: Glucose, Whole Blood 212 mg/dL (60-115)
[2021-08-09 23:31] LABS: Glucose, Whole Blood 60 mg/dL (60-115)
[2021-08-09] MEDS: Potassium Chloride Packet 20 MEQ PACKET 40 MEQ PO (23:54)
[2021-08-09] MEDS: Dextrose 5 % and 0.45 % NaCl 1,000 ML 100 ML IVCONT (23:55)
[2021-08-10 00:02] LABS: Troponin-I High Sensitivity < 3.5 ng/L (<3.5-35.0)
[2021-08-10 00:08] LABS: Troponin-I High Sensitivity < 3.5 ng/L (<3.5-35.0)
[2021-08-10 00:15] LABS: COVID-19 Test Negative (Negative)
[2021-08-10 06:35] VITALS: BP 144/76; PULSE 91; RESP 16; TEMP 36.1; O2SAT 99
[2021-08-10 07:01] LABS: MANUAL DIFF FLAG NO
[2021-08-10 07:05] LABS: Basophils Percent Auto 0.3 % (0-2); Eosinophils Absolute Auto 0.1 X10*3/uL (0.0-0.4); Eosinophils Percent Auto 1.2 % (0-4); Hematocrit 38.6 % (42-52); Hemoglobin 13.4 g/dl (14.0-18.0); Imm Gran Abs Auto 0.02 X10*3/uL (0.00-0.03); Imm Gran Pct Auto 0.3 % (0.0-0.4); Lymphocytes Absolute Auto 1.2 X10*3/uL (1.2-4.9); Lymphocytes Percent Auto 20.9 % (20-40); Mean Corpuscular HGB Conc 34.7 g/dl (31.0-36.0); Mean Corpuscular Hemoglobin 36.4 pg (27.0-33.0); Mean Corpuscular Volume 104.9 fL (80-98); Mean Platelet Volume 10.5 fL (9.4-12.4); Monocytes Absolute Auto 0.8 X10*3/uL (0.1-1.2); Monocytes Percent Auto 13.2 % (2-11); Neutrophils Absolute Auto 3.7 X10*3/uL (2.0-8.3); Neutrophils Percent Auto 64.1 % (45-73); Platelet Count 175 X10*3/uL (160-400); Red Blood Count 3.68 X10*6/uL (4.60-5.80); Red Cell Distribution Width 13.3 % (11.0-16.0); White Blood Count 5.8 X10*3/uL (4.8-10.8)
[2021-08-10 07:20] LABS: Glucose, Whole Blood 189 mg/dL (60-115)
[2021-08-10 07:25] LABS: Anion Gap 11 (12-20); Blood Urea Nitrogen 7 mg/dL (9-16); Carbon Dioxide 24 mmol/L (22-29); Chloride 108 mmol/L (96-108); Creatinine Clr Calc Pharmacy 120.9; Estimated Glomerular Filt Rate > 60; Glucose Random 160 mg/dL (60-115); Potassium 4.5 mmol/L (3.3-5.1); Sodium 138 mmol/L (135-145)
[2021-08-10 07:40] VITALS: BP 141/73; PULSE 83; RESP 14; O2SAT 99
[2021-08-10 08:42] VITALS: BP 155/85; PULSE 99
[2021-08-10] MEDS: Cholecalciferol (Vitamin D3) 25 MCG TABLET 100 MCG PO (08:42)
[2021-08-10] MEDS: cloNIDine HCL 0.1 MG TABLET PO (08:42)
[2021-08-10] MEDS: clonazePAM 0.5 MG TABLET PO (08:43)
[2021-08-10] MEDS: Dextrose 5 % and 0.45 % NaCl 1,000 ML 100 ML IVCONT (08:45)
--- NOTE | 2021-08-10 09:38 | MHC.CM.PN ---
CM MET WITH PT WHO REPORTS HE LIVES WITH HIS MOTHER AND IS INDEPENDENT WITH SELF CARE PT HAS NO HOME SERVICES AND USES ONLY AN INSULIN PUMP FOR DME PT HAS A HCP ON FILE AND REPORTS HIS PCP IS VÍCTOR ARAUJO CURRENT DC PLAN IS HOME WITH NO SERVICES FAMILY TO TRANSPORT
[2021-08-10 10:58] VITALS: BP 141/75; PULSE 79; RESP 14; O2SAT 99
--- NOTE | 2021-08-10 12:08 | PM.DS ---
DS: Providers Provider Date of Service: 08/10/21 <Yodit Hooper NP - Last Filed: 08/10/21 12:21> Date of admission: 08/09/21 22:55 <Yodit Hooper NP - Last Filed: 08/10/21 12:21> Primary care physician: Unknown Physician <Yodit Hooper NP - Last Filed: 08/10/21 12:21> Attending physician on discharge: Murali Hearn <Yodit Hooper NP - Last Filed: 08/10/21 12:21> Discharging clinician: Yodit Hooper <Yodit Hooper NP - Last Filed: 08/10/21 12:21> DS: Diagnosis Discharge Diagnosis (1) Hypoglycemia unawareness associated with type 1 diabetes mellitus: Status: Acute <Yodit Hooper NP - Last Filed: 08/10/21 12:21> (2) Hypoglycemia due to insulin: Status: Acute <Yodit Hooper NP - Last Filed: 08/10/21 12:21> DS: Summary Hospital Course Hospital Course: HP as per admitting provider 45-year-old male with a past medical history of type 1 diabetes, anxiety, vitamin-D deficiency presented to the hospital with a chief complaint of unresponsive episode. 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 The EMS came in his fingerstick glucose was noted to be 20; patient was sweating. Patient denies any chest pain palpitations lightheadedness or dizziness. Denies any numbness tingling or focal weakness. Denies any use of excessive insulins. Denies any fever chills cough.? Denies any urinary symptoms. Review of all other systems is negative except mentioned above ER course: Per ER team patient noted to have brief episode of unresponsive episode; at the time noted to have fingerstick glucose in 26; received sugars; improved; in the ER patient had another episode of hypoglycemia to 40; given D50; mental status improved.? Exam nonfocal.? No signs of infection.? Admitted to the hospital for further management Diabetes with hypoglcycemia. patient uses his insulin pump at home. He reports that he may have entered too many carbs on his monitor which caused him to become hypoglycemic. He has been working with his air and water filler for some time now to manage this. He has been able to eat and drink with no problems his blood sugars have been stable and he has not had any noted hypoglycemic episodes since 22:00. He was treated with dextrose with water and sliding scale. He is comfortable returning home and will continue using his insulin pump at home. He is to follow-up was air and water filler as needed. <Yodit Hooper NP - Last Filed: 08/10/21 12:21> Time Spent with Patient Time attestation: Total time spent providing and/or coordinating discharge services: <Yodit Hooper NP - Last Filed: 08/10/21 12:21> Discharge coordination time: Greater than 30 minutes <Yodit Hooper NP - Last Filed: 08/10/21 12:21> Quality: Stroke Does the patient have a stroke diagnosis?: No <Yodit Hooper NP - Last Filed: 08/10/21 12:21> Physical Exam Vital Signs: Vital Signs: Last Vital Signs Temp 97.0 F 08/10/21 06:35 Pulse 79 08/10/21 10:58 Resp 14 08/10/21 10:58 BP 141/75 H 08/10/21 10:58 Pulse Ox 99 08/10/21 10:58 Body Mass Index 22.4 <Yodit Hooper NP - Last Filed: 08/10/21 12:21> Appearing in no acute distress head is normocephalic atraumatic eyes pupils are PERRLA sclera is anicteric mouth throat mucous membranes are intact and moist neck is supple no lymphadenopathy, no JVD noted lung sounds are clear to auscultation heart regular rate rhythm, clear S1, S2 positive bowel sounds, abdomen is soft, nontender neuro patient is alert x3, no focal deficits <Yodit Hooper NP - Last Filed: 08/10/21 12:21> DS: Data Data Completed and Pending Labs on day of discharge: Laboratory Results - last 24 hr 08/09/21 08/09/21 08/09/21 21:17 21:46 21:46 WBC 8.1 RBC 4.00 L Hgb 14.9 Hct 42.7 MCV 106.8 H MCH 37.3 H MCHC 34.9 RDW 13.5 Plt Count 181 MPV 9.9 Immature Gran % (Auto) 1.0 H Neut % (Auto) 61.6 Lymph % (Auto) 22.6 [place] % (Auto) 12.7 H Eos % (Auto) 1.6 Baso % (Auto) 0.5 Lymph # (Auto) 1.8 [place] # (Auto) 1.0 Eos # (Auto) 0.1 Baso # (Auto) 0.0 Abs Immat Gran (auto) 0.08 H Absolute Neuts (auto) 5.0 Absolute Nucleated RBC 0.000 Nucleated RBC % (auto) 0.0 Sodium 142 Potassium 3.0 L D Chloride 106 Carbon Dioxide 22 Anion Gap 17 BUN 5 L D Creatinine 0.75 Estim Creat Clear Calc 116.1 Estimated GFR > 60 POC Glucose 72 Random Glucose 45 L* Calcium 8.2 L D Total Bilirubin 0.4 Direct Bilirubin 0.2 AST 137 H ALT 85 H Alkaline Phosphatase 150 H D Troponin I High Sens Total Protein 6.0 L Albumin 3.8 Lipase 27 Urine Color Urine Appearance Urine pH Ur Specific [place] Urine Protein Urine Glucose (UA) Urine Ketones Urine Blood Urine Nitrite Ur Leukocyte Esterase COVID-19 (DAYANA) COVID-19 [employer] Com 08/09/21 08/09/21 08/09/21 21:46 22:28 22:31 WBC RBC Hgb Hct MCV MCH MCHC RDW Plt Count MPV Immature Gran % (Auto) Neut % (Auto) Lymph % (Auto) [place] % (Auto) Eos % (Auto) Baso % (Auto) Lymph # (Auto) [place] # (Auto) Eos # (Auto) Baso # (Auto) Abs Immat Gran (auto) Absolute Neuts (auto) Absolute Nucleated RBC Nucleated RBC % (auto) Sodium Potassium Chloride Carbon Dioxide Anion Gap BUN Creatinine Estim Creat Clear Calc Estimated GFR POC Glucose 60 Random Glucose Calcium Total Bilirubin Direct Bilirubin AST ALT Alkaline Phosphatase Troponin I High Sens < 3.5 Total Protein Albumin Lipase Urine Color YELLOW Urine Appearance CLEAR Urine pH 7.0 Ur Specific [place] 1.020 Urine Protein NEG Urine Glucose (UA) 100 H Urine Ketones NEG Urine Blood NEG Urine Nitrite NEG Ur Leukocyte Esterase NEG COVID-19 (DAYANA) COVID-19 [employer] Com 08/09/21 08/09/21 08/09/21 22:53 23:24 23:38 WBC RBC Hgb Hct MCV MCH MCHC RDW Plt Count MPV Immature Gran % (Auto) Neut % (Auto) Lymph % (Auto) [place] % (Auto) Eos % (Auto) Baso % (Auto) Lymph # (Auto) [place] # (Auto) Eos # (Auto) Baso # (Auto) Abs Immat Gran (auto) Absolute Neuts (auto) Absolute Nucleated RBC Nucleated RBC % (auto) Sodium Potassium Chloride Carbon Dioxide Anion Gap BUN Creatinine Estim Creat Clear Calc Estimated GFR POC Glucose 152 H 212 H Random Glucose Calcium Total Bilirubin Direct Bilirubin AST ALT Alkaline Phosphatase Troponin I High Sens < 3.5 Total Protein Albumin Lipase Urine Color Urine Appearance Urine pH Ur Specific [place] Urine Protein Urine Glucose (UA) Urine Ketones Urine Blood Urine Nitrite Ur Leukocyte Esterase COVID-19 (DAYANA) COVIDOrdr.in 08/09/21 08/10/21 08/10/21 23:55 06:14 06:14 WBC 5.8 RBC 3.68 L Hgb 13.4 L Hct 38.6 L MCV 104.9 H MCH 36.4 H MCHC 34.7 RDW 13.3 Plt Count 175 MPV 10.5 Immature Gran % (Auto) 0.3 Neut % (Auto) 64.1 Lymph % (Auto) 20.9 [place] % (Auto) 13.2 H Eos % (Auto) 1.2 Baso % (Auto) 0.3 Lymph # (Auto) 1.2 [place] # (Auto) 0.8 Eos # (Auto) 0.1 Baso # (Auto) 0.0 Abs Immat Gran (auto) 0.02 Absolute Neuts (auto) 3.7 Absolute Nucleated RBC 0.000 Nucleated RBC % (auto) 0.0 Sodium 138 Potassium 4.5 D Chloride 108 Carbon Dioxide 24 Anion Gap 11 L BUN 7 L Creatinine 0.72 Estim Creat Clear Calc 120.9 Estimated GFR > 60 POC Glucose Random Glucose 160 H D Calcium 8.0 L Total Bilirubin Direct Bilirubin AST ALT Alkaline Phosphatase Troponin I High Sens Total Protein Albumin Lipase Urine Color Urine Appearance Urine pH Ur Specific [place] Urine Protein Urine Glucose (UA) Urine Ketones Urine Blood Urine Nitrite Ur Leukocyte Esterase COVID-19 (DAYANA) Negative COVID-19 [employer]ropy Com See Note 08/10/21 07:16 WBC RBC Hgb Hct MCV MCH MCHC RDW Plt Count MPV Immature Gran % (Auto) Neut % (Auto) Lymph % (Auto) [place] % (Auto) Eos % (Auto) Baso % (Auto) Lymph # (Auto) [place] # (Auto) Eos # (Auto) Baso # (Auto) Abs Immat Gran (auto) Absolute Neuts (auto) Absolute Nucleated RBC Nucleated RBC % (auto) Sodium Potassium Chloride Carbon Dioxide Anion Gap BUN Creatinine Estim Creat Clear Calc Estimated GFR POC Glucose 189 H Random Glucose Calcium Total Bilirubin Direct Bilirubin AST ALT Alkaline Phosphatase Troponin I High Sens Total Protein Albumin Lipase Urine Color Urine Appearance Urine pH Ur Specific [place] Urine Protein Urine Glucose (UA) Urine Ketones Urine Blood Urine Nitrite Ur Leukocyte Esterase COVID-19 (DAYANA) COVID-19 Clin Com <Yodit Hooper NP - Last Filed: 08/10/21 12:21> Discharge Plan Discharge Anticipated Discharge Date/Time: 08/10/21 12:04 <Yodit Hooper NP - Last Filed: 08/10/21 12:21> Patient Disposition: Home, Self-Care <Yodit Hooper NP - Last Filed: 08/10/21 12:21> Discharge Diagnosis: Hypoglycemia <Yodit Hooper NP - Last Filed: 08/10/21 12:21> Hypoglycemia <Murali Hearn MD - Last Filed: 08/10/21 16:37> Referrals: Linda Carrasquillo NP [Nurse Practitioner] - 1 Week Raquel Oquendo AGNP-C [Nurse Practitioner] - 1 Week <Yodit Hooper NP - Last Filed: 08/10/21 12:21> Discharge Medications: Continued (DME) insulin syringe-needle U-100 [BD Insulin Syringe] 0.3 mL 29 gauge x 1/2 syringe See Rx Instructions .ROUTE .MEDSUPPLY Qty: 150 RF: 5 (DME) pen needle, diabetic [BD Felisha 2nd Gen Pen Needle] 32 gauge x 5/32 needle See Rx Instructions .ROUTE .MEDSUPPLY Qty: 50 RF: 4 insulin glargine U-300 conc [Toujeo SoloStar U-300 Insulin] 300 unit/mL (1.5 mL) insulin pen 15 unit subcut BEDTIME Qty: 1.5 RF: 2 insulin lispro [Humalog U-100 Insulin] 100 unit/mL solution See Rx Instructions subcut DAILY 30 Days Qty: 30 RF: 6 (DME) FreeStyle Lite Strips Strip See Rx Instructions .ROUTE .MEDSUPPLY Qty: 300 RF: 11 clonidine HCl 0.1 mg tablet 1 tab PO DAILY RF: 0 cholecalciferol (vitamin D3) 50 mcg (2,000 unit) capsule 100 mcg PO DAILY RF: 0 clonazepam 0.5 mg tablet 0.5 mg PO BID RF: 0 Baqsimi 3 mg/actuation spray,non-aerosol 3 mg intranasal ONCE 30 Days Qty: 2 RF: 6 <Yodit Hooper NP - Last Filed: 08/10/21 12:21> Discharge Orders: Discharge Order (Routine); Ordered 08/10/21 Ordered By: Yodit Hooper <Yodit Hooper NP - Last Filed: 08/10/21 12:21> Diet: advance to usual diet <Yodit Hooper NP - Last Filed: 08/10/21 12:21> advance to usual diet <Murali Hearn MD - Last Filed: 08/10/21 16:37> Activity on Discharge: As tolerated <Yodit Hooper NP - Last Filed: 08/10/21 12:21> As tolerated <Murali Hearn MD - Last Filed: 08/10/21 16:37> Stand Alone Forms: Patient Portal Discharge page <Yodit Hooper NP - Last Filed: 08/10/21 12:21> Care Plan Goals: Better management of type I diabetes with insulin pump <Yodit Hooper NP - Last Filed: 08/10/21 12:21> Health Concerns: Hypoglycemia <Yodit Hooper NP - Last Filed: 08/10/21 12:21> Plan of Treatment: Continue with insulin pump at home. Please follow up with your air and water filler <Yodit Hooper NP - Last Filed: 08/10/21 12:21> Assessment: See discharge summary ATTENDING ADDENDUM: I have seen and examined the patient on discharge day.? I have reviewed, edited, and agree with the above discharge summary.? More than 3) minutes was personally spent on discharge planning on the day of discharge in coordination of care,? counseling the patient, and preparation of discharge and transfer paperwork.? I have electronically signed this document. <Yodit Hooper PRODUCT SUPPORT MANAGER - Last Filed: 08/10/21 12:21>
[2021-08-10 12:10] LABS: Glucose, Whole Blood 277 mg/dL (60-115)
[2021-08-10] MEDS: Insulin Lispro 100 UNIT/ML 3 ML VIAL SUBCUT (12:11)
[2021-08-11 09:02] LABS: C Peptide < 0.10 ng/mL (0.80-3.85)
[2021-08-15 17:40] LABS: Chlorpropamide None Detected; Glimepiride None Detected; Glipizide None Detected; Glyburide None Detected; Nateglinide None Detected; Pioglitazone None Detected; Repaglinide None Detected; Rosiglitazone None Detected; Tolazamide None Detected; Tolbutamide None Detected
== END 2021-08-10 13:06 | disposition admitted as inpatient to this hospital (09) ==
LOC: HO.ED 23:10 → HO.EDOVER 08-10 07:03
PROVIDERS: Nurse Practitioner Acute Care; Emergency Provider Emergency Medicine; Visit Provider Hospitalist
DX: E10.649 Type 1 diabetes mellitus with hypoglycemia without coma (principal); T38.3X5A Adverse effect of insulin and oral hypoglycemic [antidiabetic] drugs, initial encounter; Y92.9 Unspecified place or not applicable; Z96.41 Presence of insulin pump (external) (internal); Z20.822 Contact with and (suspected) exposure to COVID-19
CPT/HCPCS: 36415; 80048; 80076; 80337; 81003; 82947; 83690; 84484; 84681; 85025; 87635; 93005; 96374; 99284

== ENCOUNTER → 2021-09-03 07:54 | Outpatient (BNVA) | payer MEDICAID, SELFPAY | PROVIDERS: PCP Nurse Practitioner Family; Visit Provider Registered Nurse Diabetes Educator | DX: E10.65 Type 1 diabetes mellitus with hyperglycemia (principal) | CPT/HCPCS: 99211 ==

== ENCOUNTER → 2021-10-08 10:34 | Outpatient (BNVA) | payer MEDICAID, SELFPAY | PROVIDERS: PCP Nurse Practitioner Family; Visit Provider Registered Nurse Diabetes Educator ==

== ENCOUNTER 2021-11-01 09:00 | Outpatient (RCR) | payer MEDICAID, SELFPAY | END 2021-11-01 15:13 | disposition home or self-care (01) | LOC: HO.PTCHIC 09:00 | PROVIDERS: PCP Nurse Practitioner Family; Visit Provider Nurse Practitioner Family | DX: M62.830 Muscle spasm of back (principal) | CPT/HCPCS: 97110; 97140; 97150; 97161 ==

== ENCOUNTER → 2021-11-26 08:58 | Outpatient (BNVA) | payer MEDICAID, SELFPAY | PROVIDERS: PCP Nurse Practitioner Family; Visit Provider Registered Nurse Diabetes Educator | DX: E10.65 Type 1 diabetes mellitus with hyperglycemia (principal) | CPT/HCPCS: 99211 ==

== ENCOUNTER → 2021-11-29 08:28 | Outpatient (BNVA) | payer MEDICAID, SELFPAY | PROVIDERS: PCP Nurse Practitioner Family; Visit Provider Registered Nurse Diabetes Educator | DX: E10.65 Type 1 diabetes mellitus with hyperglycemia (principal); Z79.4 Long term (current) use of insulin | CPT/HCPCS: 99211 ==

== ENCOUNTER → 2021-12-13 08:25 | Outpatient (BNVA) | payer MEDICAID, SELFPAY | PROVIDERS: PCP Nurse Practitioner Family; Visit Provider Registered Nurse Diabetes Educator | DX: E10.65 Type 1 diabetes mellitus with hyperglycemia (principal); Z46.81 Encounter for fitting and adjustment of insulin pump; Z71.89 Other specified counseling | CPT/HCPCS: 99211 ==

== ENCOUNTER → 2022-01-09 07:40 | Outpatient (BNVA) | payer MEDICAID, SELFPAY | PROVIDERS: PCP Nurse Practitioner Family; Visit Provider Nurse Practitioner Gerontology | DX: E10.9 Type 1 diabetes mellitus without complications (principal); E55.9 Vitamin D deficiency, unspecified | CPT/HCPCS: 82947; 99212 ==

== ENCOUNTER → 2022-02-10 12:22 | Outpatient (BNVA) | payer MEDICAID, SELFPAY | PROVIDERS: PCP Nurse Practitioner Family; Visit Provider Registered Nurse Diabetes Educator | DX: E10.9 Type 1 diabetes mellitus without complications (principal); Z96.41 Presence of insulin pump (external) (internal) | CPT/HCPCS: 99211 ==

== ENCOUNTER → 2022-02-21 14:00 | Outpatient (BNVA) | payer MEDICAID, SELFPAY | PROVIDERS: PCP Nurse Practitioner Family; Visit Provider Registered Nurse Diabetes Educator | DX: E10.9 Type 1 diabetes mellitus without complications (principal); Z79.4 Long term (current) use of insulin; Z46.81 Encounter for fitting and adjustment of insulin pump | CPT/HCPCS: 99211 ==

== ENCOUNTER → 2022-03-06 08:58 | Outpatient (BNVA) | payer MEDICAID, SELFPAY | PROVIDERS: PCP Nurse Practitioner Family; Visit Provider Registered Nurse Diabetes Educator | DX: E10.65 Type 1 diabetes mellitus with hyperglycemia (principal); Z79.4 Long term (current) use of insulin; Z46.81 Encounter for fitting and adjustment of insulin pump | CPT/HCPCS: 99211 ==

== ENCOUNTER 2022-05-06 21:04 | Emergency (ER) | payer MEDICAID, SELFPAY ==
--- NOTE | ~2022-05-06 | CT_ITS ---
EXAMINATION: CT HEAD WITHOUT CONTRAST CLINICAL INFORMATION: Right lower extremity weakness COMPARISON: 05.18.2020 TECHNIQUE: Contiguous axial imaging was performed from the skull base to vertex without intravenous administration of contrast. This CT examination was performed using dose optimization techniques as appropriate, variously including the following: *Automated exposure control *Adjustment of mA and/or kV according to patient size (this includes techniques or standardized protocols for targeted exams where dose is matched to indication/reason for exam; i.e. extremities or head) *Use of iterative reconstruction technique DLP: 745 mGy-cm FINDINGS: There is no evidence of acute intracranial hemorrhage or territorial infarction. No abnormal mass effect or midline shift is seen. Patrick to white matter differentiation is well preserved. No extra-axial fluid collections are identified. The ventricles are normal in size. There is no abnormal attenuation within the brain parenchyma. The osseous structures and soft tissues are normal. The mastoid air cells and visualized portions of the paranasal sinuses are well aerated. CT/CT head/brain wo con IMPRESSION: No acute intracranial pathology.
--- NOTE | 2022-05-06 21:18 | ED.GENADULT ---
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 Clear Calc Estimated GFR POC Glucose 145 H 41 L* 85 (60-115) mg/dL Random Glucose (60-115) mg/dL Calcium (8.4-10.2) mg/dL Magnesium (1.6-2.6) mg/dL Total Bilirubin (0.0-1.0) mg/dL AST (5-37) U/L ALT (0-40) U/L Alkaline Phosphatase (39-117) U/L Troponin I High Sens (<3.5-35.0) ng/L B-Natriuretic Peptide (<100) pg/mL Total Protein (6.5-8.0) g/dL Albumin (3.5-5.0) g/dL Ethyl Alcohol mg/dL COVID-19 ([facility]) (Negative) COVID-19 Clin Com 05/07/22 05/07/22 Range/Units 03:32 04:45 WBC (4.8-10.8) X10*3/uL RBC (4.60-5.80) X10*6/uL Hgb (14.0-18.0) g/dl Hct (42.0-52.0) % MCV (80.0-98.0) fL MCH (27.0-33.0) pg MCHC (31.0-36.0) g/dl RDW (11.0-16.0) % Plt Count (160-400) X10*3/uL MPV (9.4-12.4) fL Immature Gran % (Auto) (0.0-0.4) % Neut % (Auto) (45-73) % Lymph % (Auto) (20-40) % [place] % (Auto) (2-11) % Eos % (Auto) (0-4) % Baso % (Auto) (0-2) % Lymph # (Auto) (1.2-4.9) X10*3/uL [place] # (Auto) (0.1-1.2) X10*3/uL Eos # (Auto) (0.0-0.4) X10*3/uL Baso # (Auto) (0.0-0.2) X10*3/uL Abs Immat Gran (auto) (0.00-0.03) X10*3/uL Absolute Neuts (auto) (2.0-8.3) x10*3/uL Absolute Nucleated RBC (0.0-0.012) X10*3/uL Nucleated RBC % (auto) (0.0-0.2) /100WBC Sodium (135-145) mmol/L Potassium (3.3-5.1) mmol/L Chloride (96-108) mmol/L Carbon Dioxide (22-29) mmol/L Anion Gap (12-20) BUN (9-16) mg/dL Creatinine (0.5-1.4) mg/dL Estim Creat Clear Calc Estimated GFR POC Glucose 125 H 212 H (60-115) mg/dL Random Glucose (60-115) mg/dL Calcium (8.4-10.2) mg/dL Magnesium (1.6-2.6) mg/dL Total Bilirubin (0.0-1.0) mg/dL AST (5-37) U/L ALT (0-40) U/L Alkaline Phosphatase (39-117) U/L Troponin I High Sens (<3.5-35.0) ng/L B-Natriuretic Peptide (<100) pg/mL Total Protein (6.5-8.0) g/dL Albumin (3.5-5.0) g/dL Ethyl Alcohol mg/dL COVID-19 ([facility]) (Negative) COVID-19 Clin Com <Refugio Mariscal MD - Last Filed: 05/07/22 05:10> ECG Data Attestation: I personally reviewed and interpreted this ECG as follows: <EVELIA Rivas - Last Filed: 05/07/22 01:28> Prior ECG tracings: available for review <EVELIA Rivas - Last Filed: 05/07/22 01:28> Interpretation: Vent. Rate: 084 BPM ? ? Atrial Rate: 084 BPM P-R Int: 160 ms? QRS Dur: 092 ms QT Int: 388 ms ? ? ? P-R-T Axes: 075 081 072 degrees QTc Int: 458 ms ? Normal sinus rhythm Normal ECG When compared with ECG of 09-AUG-2021 23:20, No significant change was found DD/ 25 <EVELIA Rivas - Last Filed: 05/07/22 01:28> Discharge Plan Discharge Clinical Impression: Alcohol abuse with intoxication, Extremity numbness <EVELIA Rivas - Last Filed: 05/07/22 01:28> Patient Disposition: Home, Self-Care <EVELIA Rivas - Last Filed: 05/07/22 01:28> Instructions: Alcohol Intoxication (ED) <EVELIA Rivas - Last Filed: 05/07/22 01:28> Additional Instructions: The legal limit for alcohol intoxication is 80. Your blood alcohol level was 360 which is greater than 4 times above this limit. Your laboratory evaluation did reveal abnormal liver tests suggesting that you are starting to hurt your liver from the amount of alcohol that you are drinking. If you continue to drink alcohol, you will destroy your liver and developed cirrhosis and from liver failure. The CT scan of your head was normal. Drinking alcohol cane lead to malnutrition and vitamin deficiencies especially thiamine and folate. You should take a daily multivitamin that has a high dose of thiamine and folate in it, you should discuss this with your pharmacist to help get the appropriate multivitamin to take. Follow-up with your doctor in 2 days. Please return to the emergency department if your symptoms get worse or if you develop any symptoms that are concerning to you. <EVELIA Rivas - Last Filed: 05/07/22 01:28> Prescriptions: No Action (DME) insulin syringe-needle U-100 [BD Insulin Syringe] 0.3 mL 29 gauge x 1/2 syringe See Rx Instructions .ROUTE .MEDSUPPLY Qty: 150 5RF Rx Instructions: 4 times a day (DME) pen needle, diabetic [BD Felisha 2nd Gen Pen Needle] 32 gauge x 5/32 needle See Rx Instructions .ROUTE .MEDSUPPLY Qty: 50 4RF Rx Instructions: once a day insulin glargine U-300 conc [Toujeo SoloStar U-300 Insulin] 300 unit/mL (1.5 mL) insulin pen 15 unit subcut BEDTIME Qty: 1.5 2RF (DME) FreeStyle Lite Strips Strip See Rx Instructions .ROUTE .MEDSUPPLY Qty: 300 11RF Rx Instructions: 6x daily (DME) Ketostix Strip See Rx Instructions .Route Qty: 50 6RF Rx Instructions: As directed insulin lispro [Humalog U-100 Insulin] 100 unit/mL solution 100 unit subcut DAILY Qty: 10 6RF clonidine HCl 0.1 mg tablet 1 tab PO DAILY cholecalciferol (vitamin D3) 50 mcg (2,000 unit) capsule 100 mcg PO DAILY clonazepam 0.5 mg tablet 0.5 mg PO BID Baqsimi 3 mg/actuation spray,non-aerosol 3 mg intranasal ONCE 30 Days Qty: 2 6RF Rx Instructions: [place] once for severe hypoglycemia when patient cannot self-treat with glucose. Afterwards turn on side. May repeat after 15 minutes if patient does not respond. <EVELIA Rivas - Last Filed: 05/07/22 01:28> Print Language: Nepalese <EVELIA Rivas - Last Filed: 05/07/22 01:28>
--- NOTE | 2022-05-06 21:20 | ECG_ITS ---
Test Reason : DIZZINESS Blood Pressure : / mmHG Vent. Rate : 084 BPM Atrial Rate : 084 BPM P-R Int : 160 ms QRS Dur : 092 ms QT Int : 388 ms P-R-T Axes : 075 081 072 degrees QTc Int : 458 ms Normal sinus rhythm Normal ECG When compared with ECG of 09-AUG-2021 23:20, No significant change was found Referred By: Keli Chavez Electronically Signed By:PENNY GALEANA
[2022-05-06 21:35] VITALS: BP 146/89; PULSE 90; O2SAT 100
[2022-05-06 21:35] LABS: Glucose, Whole Blood 100 mg/dL (60-115)
[2022-05-06 21:45] VITALS: BP 157/96; PULSE 86; RESP 16; TEMP 36.3; O2SAT 98; BMI 21.4
[2022-05-06 21:52] LABS: MANUAL DIFF FLAG NO
[2022-05-06 21:56] LABS: Basophils Absolute Auto 0.1 X10*3/uL (0.0-0.2); Eosinophils Absolute Auto 0.1 X10*3/uL (0.0-0.4); Eosinophils Percent Auto 1.3 % (0-4); Hemoglobin 14.6 g/dl (14.0-18.0); Imm Gran Abs Auto 0.02 X10*3/uL (0.00-0.03); Imm Gran Pct Auto 0.4 % (0.0-0.4); Lymphocytes Absolute Auto 1.6 X10*3/uL (1.2-4.9); Lymphocytes Percent Auto 32.4 % (20-40); Mean Corpuscular HGB Conc 34.8 g/dl (31.0-36.0); Mean Corpuscular Hemoglobin 37.3 pg (27.0-33.0); Mean Corpuscular Volume 107.4 fL (80.0-98.0); Mean Platelet Volume 10.2 fL (9.4-12.4); Monocytes Absolute Auto 0.8 X10*3/uL (0.1-1.2); Monocytes Percent Auto 15.9 % (2-11); Neutrophils Absolute Auto 2.4 x10*3/uL (2.0-8.3); Platelet Count 134 X10*3/uL (160-400); Red Blood Count 3.91 X10*6/uL (4.60-5.80); Red Cell Distribution Width 12.7 % (11.0-16.0); White Blood Count 4.8 X10*3/uL (4.8-10.8)
[2022-05-06 22:11] LABS: Ethanol 360 mg/dL
[2022-05-06 22:18] LABS: Alanine Aminotransferase 158 U/L (0-40); Albumin Level 3.5 g/dL (3.5-5.0); Alkaline Phosphatase 169 U/L (39-117); Anion Gap 13 (12-20); Aspartate Amino Transferase 390 U/L (5-37); Bilirubin Total 0.6 mg/dL (0.0-1.0); Blood Urea Nitrogen 5 mg/dL (9-16); Carbon Dioxide 27 mmol/L (22-29); Chloride 108 mmol/L (96-108); Estimated Glomerular Filt Rate > 60; Glucose Random 101 mg/dL (60-115); Magnesium 1.8 mg/dL (1.6-2.6); Potassium 4.2 mmol/L (3.3-5.1); Sodium 144 mmol/L (135-145); Total Protein 5.8 g/dL (6.5-8.0)
[2022-05-06 22:20] LABS: B Type Natriuretic Peptide 59 pg/mL (<100); Troponin-I High Sensitivity < 3.5 ng/L (<3.5-35.0)
[2022-05-06 22:27] LABS: COVID-19 Test Negative (Negative)
[2022-05-06 23:51] LABS: Glucose, Whole Blood 145 mg/dL (60-115)
[2022-05-07] MEDS: 0.9 % Sodium Chloride 500 ML 250 ML IV (00:20)
[2022-05-07 02:47] LABS: Glucose, Whole Blood 41 mg/dL (60-115)
--- NOTE | 2022-05-07 02:47 | PC.NURSE ---
pt reporting improved sensation in upper and lower extremities, still experiencing numbness r leg. pt insulin pump reading @60, 41 per [facility] glucometer. pt given sandwiches, provider notified.
--- NOTE | 2022-05-07 03:15 | PC.NURSE ---
Report received and care assumed at 0300. RN received in report that the pt's previous POC at 0243 was 41; pt provided with sunbutter and jelly x2 and regular gingerale with MD to bedside for eval. Repeat POC at 314 was 81, RN to bedside to provide pt with gingerale per request. Pt requested diet gingerale but accepted the regular gingerale from this RN to assist with ensuring POC remains WNL, pt also provided with an additional sandwich and jack crackers. Call daniels in reach, pt awake, alert and without distress conversing in full and complete sentences with this RN.
[2022-05-07 03:17] LABS: Glucose, Whole Blood 85 mg/dL (60-115)
[2022-05-07 03:37] LABS: Glucose, Whole Blood 125 mg/dL (60-115)
[2022-05-07 04:48] VITALS: BP 141/76; PULSE 107; RESP 15; TEMP 37.1; O2SAT 99
[2022-05-07 04:49] LABS: Glucose, Whole Blood 212 mg/dL (60-115)
== END 2022-05-07 05:54 | disposition home or self-care (01) ==
PROVIDERS: Physician Assistant Medical; Emergency Provider Emergency Medicine Emergency Medical Services; PCP Nurse Practitioner Family
DX: R20.2 Paresthesia of skin (principal); F10.120 Alcohol abuse with intoxication, uncomplicated; Y90.8 Blood alcohol level of 240 mg/100 ml or more; E10.9 Type 1 diabetes mellitus without complications; Z20.822 Contact with and (suspected) exposure to COVID-19; F17.210 Nicotine dependence, cigarettes, uncomplicated; F12.90 Cannabis use, unspecified, uncomplicated; Z79.4 Long term (current) use of insulin; E55.9 Vitamin D deficiency, unspecified
CPT/HCPCS: 36415; 70450; 80053; 82077; 82947; 83735; 83880; 84484; 85025; 87635; 93005; 96360; 96361; 99284

== ENCOUNTER 2022-08-12 08:34 | Outpatient (REF) | payer MEDICAID, SELFPAY ==
[2022-08-12 12:34] LABS: Creatinine Urine 125.39 mg/dL; Microalbum/Creatinine Ratio Ur 12.7 ug/mg cr
[2022-08-12 12:42] LABS: Cholesterol 176 mg/dL; HDL Cholesterol 95 mg/dL; LDL Cholesterol Calculated 65 mg/dl; Triglycerides 82 mg/dL
== END 2022-08-12 08:35 | disposition home or self-care (01) ==
LOC: HO.CHCLDS 08:34
PROVIDERS: PCP Nurse Practitioner Family; Referring Provider Nurse Practitioner Gerontology; Visit Provider Internal Medicine Endocrinology, Diabetes & Metabolism
DX: E10.65 Type 1 diabetes mellitus with hyperglycemia (principal)
CPT/HCPCS: 36415; 80061; 82043

== ENCOUNTER → 2022-08-13 07:56 | Outpatient (BNVA) | payer MEDICAID, SELFPAY | PROVIDERS: PCP Nurse Practitioner Family; Visit Provider Internal Medicine Endocrinology, Diabetes & Metabolism | DX: E10.65 Type 1 diabetes mellitus with hyperglycemia (principal); Z96.41 Presence of insulin pump (external) (internal); Z79.4 Long term (current) use of insulin | CPT/HCPCS: 82947; 83036; 99212 ==

== ENCOUNTER → 2022-08-25 13:24 | Outpatient (BNVA) | payer MEDICAID, SELFPAY | PROVIDERS: PCP Nurse Practitioner Family; Visit Provider Registered Nurse Diabetes Educator | DX: E10.9 Type 1 diabetes mellitus without complications (principal); Z79.4 Long term (current) use of insulin; Z46.81 Encounter for fitting and adjustment of insulin pump | CPT/HCPCS: 99211 ==

== ENCOUNTER 2022-10-30 06:53 | Outpatient (REF) | payer MEDICAID, SELFPAY ==
--- NOTE | ~2022-10-30 | XR_ITS ---
EXAMINATION: XR HIP, RIGHT , AP pelvis CLINICAL INFORMATION: Pain COMPARISON: 2018 TECHNIQUE: Frontal and lateral views of the hip acquired. , AP pelvis FINDINGS: There is no evidence of acute fracture or dislocation. There are mild degenerative arthritic changes of the hip evident by sclerotic changes of the acetabular roof and narrowing of the joint space. Symphysis pubis is intact. Adjacent SI joints unremarkable. Adjacent pubic rami are intact. Surrounding soft tissues are unremarkable. XR/XR hip RT w [id number] IMPRESSION: * Mild degenerative osteoarthritis. * No fracture. * No osteolytic bone lesion.
== END 2022-10-30 06:54 | disposition home or self-care (01) ==
LOC: HO.HOSX 06:53
PROVIDERS: Visit Provider Physician Assistant
DX: M16.0 Bilateral primary osteoarthritis of hip (principal); E10.65 Type 1 diabetes mellitus with hyperglycemia; Z46.81 Encounter for fitting and adjustment of insulin pump; Z79.899 Other long term (current) drug therapy; Z79.4 Long term (current) use of insulin
CPT/HCPCS: 73502; 99202; 99211

== ENCOUNTER → 2022-11-18 07:57 | Outpatient (BNVA) | payer MEDICAID, SELFPAY | PROVIDERS: PCP Nurse Practitioner Family; Visit Provider Internal Medicine Endocrinology, Diabetes & Metabolism | DX: Z46.81 Encounter for fitting and adjustment of insulin pump (principal); E10.65 Type 1 diabetes mellitus with hyperglycemia; Z79.4 Long term (current) use of insulin | CPT/HCPCS: 82947; 99212 ==

== ENCOUNTER 2022-11-20 13:27 | Outpatient (REF) | payer MEDICAID, SELFPAY ==
--- NOTE | ~2022-11-20 | FL_ITS ---
EXAMINATION: FL FLUOROSCOPY-GUIDED STEROID INJECTION, BILATERAL HIPS CLINICAL INFORMATION: Bilateral hip primary osteoarthritis. COMPARISON: None TECHNIQUE: Following explaining fluoroscopy-guided bilateral hip steroid injection procedure, benefits and risks, a written consent was obtained. Patient was placed supine with anterior aspect of right hip exposed. A marker was placed overlying the right hip. The marked area in the skin was cleaned and draped in usual sterile manner with 2% chlorhexidine solution. 1% lidocaine was injected at the marked site. A 22-gauge spinal needle was then advanced from the skin into the right lateral hip joint space and 2 mL of nonionic contrast was injected. The contrast traveled superiorly into the joint space. Subsequently 80 mg of Depo-Medrol, 7 mL of 1% lidocaine was injected and needle withdrawn. Complete hemostasis achieved at puncture site. Sterile Band-Aid applied postprocedure. Subsequently anterior aspect left hip was exposed and a marker was placed along the lateral femoral hip joint space. The marked site on the skin was cleaned and draped in usual sterile manner. 1% lidocaine was injected. A 22-gauge spinal needle was then inserted through the skin to the lateral surface of femoral neck and 2 mL of nonionic contrast was injected. After confirming contrast in the joint space 80 mg of Depo-Medrol and 7 mL of 1% lidocaine was injected and needle withdrawn. Complete hemostasis achieved at puncture site. Sterile Band-Aid applied postprocedure. Patient tolerated procedure extremely well on bilateral hip joint injections. FINDINGS: On bilateral hip arthrograms there is contrast opacifying the hip joint space. No bony erosive changes seen. The joint space is normal. Fluoroscopy bilateral hip steroid joint injection performed without immediate complications. FLUOROSCOPY TIME: 1.3 minutes DOSE AREA PRODUCT: 5.641 Gy-cm2 FL/FL arthrogram hip RT IMPRESSION: Successful fluoroscopy-guided bilateral hip steroid joint injection performed.
--- NOTE | ~2022-11-20 | FL_ITS ---
EXAMINATION: FL FLUOROSCOPY-GUIDED STEROID INJECTION, BILATERAL HIPS CLINICAL INFORMATION: Bilateral hip primary osteoarthritis. COMPARISON: None TECHNIQUE: Following explaining fluoroscopy-guided bilateral hip steroid injection procedure, benefits and risks, a written consent was obtained. Patient was placed supine with anterior aspect of right hip exposed. A marker was placed overlying the right hip. The marked area in the skin was cleaned and draped in usual sterile manner with 2% chlorhexidine solution. 1% lidocaine was injected at the marked site. A 22-gauge spinal needle was then advanced from the skin into the right lateral hip joint space and 2 mL of nonionic contrast was injected. The contrast traveled superiorly into the joint space. Subsequently 80 mg of Depo-Medrol, 7 mL of 1% lidocaine was injected and needle withdrawn. Complete hemostasis achieved at puncture site. Sterile Band-Aid applied postprocedure. Subsequently anterior aspect left hip was exposed and a marker was placed along the lateral femoral hip joint space. The marked site on the skin was cleaned and draped in usual sterile manner. 1% lidocaine was injected. A 22-gauge spinal needle was then inserted through the skin to the lateral surface of femoral neck and 2 mL of nonionic contrast was injected. After confirming contrast in the joint space 80 mg of Depo-Medrol and 7 mL of 1% lidocaine was injected and needle withdrawn. Complete hemostasis achieved at puncture site. Sterile Band-Aid applied postprocedure. Patient tolerated procedure extremely well on bilateral hip joint injections. FINDINGS: On bilateral hip arthrograms there is contrast opacifying the hip joint space. No bony erosive changes seen. The joint space is normal. Fluoroscopy bilateral hip steroid joint injection performed without immediate complications. FLUOROSCOPY TIME: 1.3 minutes DOSE AREA PRODUCT: 5.641 Gy-cm2 FL/FL arthrogram hip LT IMPRESSION: Successful fluoroscopy-guided bilateral hip steroid joint injection performed.
== END 2022-11-20 13:28 | disposition home or self-care (01) ==
LOC: HO.XRAY 13:27
PROVIDERS: PCP Nurse Practitioner Family; Visit Provider Physician Assistant
DX: M16.0 Bilateral primary osteoarthritis of hip (principal)
CPT/HCPCS: 27093; 73525

== ENCOUNTER → 2022-11-25 12:29 | Outpatient (BNVA) | payer MEDICAID, SELFPAY | PROVIDERS: PCP Nurse Practitioner Family; Visit Provider Dietitian, Registered | DX: E10.9 Type 1 diabetes mellitus without complications (principal); Z71.3 Dietary counseling and surveillance | CPT/HCPCS: 97802 ==

== ENCOUNTER 2023-01-14 09:04 | Inpatient (IN) | payer OTHER, SELFPAY ==
--- NOTE | ~2023-01-14 | CT_ITS ---
EXAMINATION: CT ABDOMEN AND PELVIS WITH CONTRAST CLINICAL INFORMATION: Abdominal pain, nausea and vomiting COMPARISON: Abdominal ultrasound October [address] of the abdomen and pelvis August 2017 TECHNIQUE: Multidetector volumetric images were obtained from the superior aspect of the liver through the pubic symphysis following administration 85 mL of Omnipaque 350 intravenous contrast. Sagittal and coronal reformatted images were obtained on the technologist's workstation. Oral contrast: Yes This CT examination was performed using dose optimization techniques as appropriate, variously including the following: *Automated exposure control *Adjustment of mA and/or kV according to patient size (this includes techniques or standardized protocols for targeted exams where dose is matched to indication/reason for exam; i.e. extremities or head) *Use of iterative reconstruction technique DLP: 381 mGy-cm FINDINGS: LUNG BASES: The visualized lung bases are clear. There is question of wall thickening of the distal thoracic esophagus. There are several prominent paraesophageal lymph nodes largest measuring 9 mm in short axis. LIVER, GALLBLADDER, AND BILIARY TREE: The liver is normal in size, shape, and attenuation. No focal hepatic lesion or biliary ductal dilatation is present. The gallbladder is unremarkable with no evidence of radiopaque gallstones, gallbladder wall thickening, or obvious pericholecystic inflammatory changes. PANCREAS: Unremarkable. SPLEEN: Unremarkable. ADRENAL GLANDS: Unremarkable. KIDNEYS AND URETERS: The kidneys are normal in size, shape, and attenuation. No hydronephrosis, hydroureter, or calculi seen. No perinephric stranding. 1 cm peripelvic cysts in the lower pole of the left kidney. No imaging follow-up recommended. BLADDER: Question mild diffuse bladder wall thickening. GASTROINTESTINAL TRACT: Mild diverticulosis of the colon. Scattered areas of mild wall thickening of the colon, question mild colitis versus changes due to underdistention. There are slightly prominent fluid-filled loops of small bowel. There is a focal short segment of small bowel with wall thickening, probably distal jejunum or proximal ileum for example axial image 48 series 3 coronal reconstructed image 29 and sagittal reconstructed image 44. Appearance is suggestive of enteritis. There is a prominent vascularity adjacent to the bowel. The appendix is normal. No ascites. ABDOMINAL WALL: No significant hernia is appreciated. LYMPH NODES: Shotty lymphadenopathy. VASCULAR: Atherosclerotic disease. No aneurysm. PELVIC VISCERA: Unremarkable. OSSEOUS STRUCTURES: Spondylolysis and mild spondylolisthesis at L5-S1. Mild degenerative changes of the spine and hip joints. CT/CT abdomen pelvis w IV con IMPRESSION: Question mild enterocolitis. Wall thickening of the distal thoracic esophagus and prominent posterior mediastinal paraesophageal lymph nodes, question distal esophagitis. Correlation with fluoroscopy exam or endoscopy should be considered. Mild diverticulosis of the colon. No evidence of diverticulitis. Question mild diffuse bladder wall thickening. Correlation with urinalysis recommended. Fleischner guidelines were followed.
[2023-01-14 09:16] VITALS: BP 145/87; PULSE 96; RESP 18; TEMP 36.8; O2SAT 98; BMI 20.9
[2023-01-14 09:20] VITALS: BP 145/87; PULSE 97; RESP 14; TEMP 36.8; O2SAT 98
--- NOTE | 2023-01-14 09:23 | ED.ABDPAIN ---
HPI - Abdominal Pain General Chief Complaint: Abdominal Pain Stated Complaint: vomitting x2 days/ abd pain Time Seen by Provider: 01/14/23 09:17 Source: patient Mode of arrival: ambulatory History of Present Illness HPI narrative: 47-year-old male with a past medical history of depression, diabetes, hypoglycemia, substance abuse, presenting to the ED complaining of abdominal pain, nausea, vomiting, decreased p.o. intake x 2 days. Patient reports similar symptoms in the past associated pancreatitis. Reports drinking about 2 nights daily, denies history of ETOH withdrawal. Pain described as burning and cramping. Denies CP/SOB, dysuria/hematuria, flank pain a suspicious food intake, recent travel MD elicited complaint: abdominal pain Related Data Home Medications Medication Instructions Recorded Confirmed clonazepam 0.5 mg tablet 0.5 mg PO BID PRN Anxiety 07/16/21 01/14/23 cholecalciferol (vitamin D3) 50 100 mcg PO DAILY 08/10/21 01/14/23 mcg (2,000 unit) capsule clonidine HCl 0.1 mg tablet 1 tab PO DAILY 08/10/21 01/14/23 lisinopril 5 mg tablet 5 mg PO DAILY 10/30/22 01/14/23 Previous Rx's Medication Instructions Recorded insulin syringe-needle U-100 0.3 #150 ea 08/29/20 mL 29 gauge x 1/2 (BD Insulin Syringe) pen needle, diabetic 32 gauge x #50 ea 08/29/20 5/32 (BD Felisha 2nd Gen Pen Needle) acetone (urine) test (Ketostix #50 ea 10/08/21 strips) insulin lispro 100 unit/mL 100 unit subcut DAILY 30 days #30 08/05/22 subcutaneous solution (Humalog mL U-100 Insulin) 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 meter (FreeStyle #1 ea 10/22/22 Lite Meter kit) blood sugar diagnostic (FreeStyle #300 ea 12/16/22 Lite Strips) Allergies Allergy/AdvReac Type Severity Reaction Status Date / Time hydroxyzine [From VISTARIL] Allergy Intermediate RASH, Verified 01/14/23 09:18 ANXIOUS quetiapine [Seroquel] Allergy Unknown Unknown Verified 01/14/23 09:18 Review of Systems Review of Systems Constitutional: No Fever, No Chills, No Fatigue, No Malaise ENT/Mouth: No Ear Pain, No Nasal Congestion, No sore throat, No Rhinorrhea, No Swallowing Difficulty Eyes: No Eye Pain, No Swelling, No Redness, No Vision Changes Cardiovascular: No Chest Pain, No SOB, No Edema, No Palpitations Respiratory: No Cough, No Sputum, No Wheezing, No Dyspnea Gastrointestinal: + Nausea, + Vomiting, No Diarrhea, No Constipation, + Abdominal pain, No Hematochezia, No Melena Genitourinary: No irregular bleeding, No Dysuria, No Urinary Frequency, No Hematuria, No Urinary Incontinence/retention, No Flank Pain Musculoskeletal: No joint pain, No Myalgias, No Joint Swelling Skin: No Skin Lesions, No rash Neuro: No Weakness, No Dizziness, No Headache Yes all other systems are reviewed and are negative Constitutional: Reports as per [facility] Past Medical History Attestation statement: The following information was validated with the patient. Medical History Depression Diabetes Diabetes type 1, uncontrolled History of drug abuse Hypoglycemia unawareness associated with type 1 diabetes mellitus Type 1 diabetes Vitamin D deficiency Surgical History Hx of hernia repair Family History Family History Father No problems noted. Mother No problems noted. Social History Social History Household Members: Family Household Members Other:: mother Housing: House Do you presently have visiting nurse or other home services: No Alcohol intake: former Patient Tobacco Use Status: Current someday Tobacco user Tobacco use type: Cigarette Cigarettes Per Day: 2 Smoked in Last 30 Days: Yes Patient Interested in Nicotine Replacement: Yes Use of substances other than those prescribed or required for medical reasons: No Substance Use Type: Marijuana Substance Use Frequency: Daily Last Used Substance: Hours (ago) Currently Displaying Signs/Symptoms of Drug Intoxication Withdrawal: No Any prior treatment program specific to substance use: No Have you been hit, kicked, punched, or otherwise hurt by someone within the past year? If so, by whom?: No Do you feel safe in your current relationship?: No Is there a partner from a previous relationship who is making you feel unsafe now?: No Are you made to feel afraid or neglected: No Advance Directives: Yes Advance Directives on File: Yes Advance Directives Date on File: 08/29/20 Do you have thoughts of harming others: None Do you have a plan to hurt others: No Plan Recently lost weight without trying: No Eating poorly because of decreased appetite: No Nutrition Risks: No Nutritional Risk Poor oral hygiene: No service: No Current occupational status: unemployed Physical Exam ED Vital Signs: Vital Signs - 24 hr 01/14/23 09:16 01/14/23 09:20 Temperature 98.3 F 98.3 F Pulse Rate 96 97 Respiratory Rate 18 14 Blood Pressure 145/87 H 145/87 H Pulse Oximetry 98 98 Oxygen Delivery Method Room Air Room Air BMI result Body Mass Index 20.9 Const General: cooperative, healthy appearing and no acute distress Orientation/consciousness: patient oriented x3 Limitations: no limitations HENMT Head: Yes normal to inspection and Yes atraumatic Ears: hearing grossly normal bilaterally General nose exam: Normal external nose present Face and sinus: Yes normal facial exam Eyes General: appearance normal, both eyes and all related structures EOM: EOMs intact bilaterally Neck Neck: Yes normal visual inspection and Yes no meningeal signs Resp Effort & Inspection: normal respiratory effort and no respiratory distress Auscultation: clear to auscultation bilaterally Cardio Rate: regular rate Heart sounds: S1 normal heart sound present and S2 normal heart sound present GI Inspection: Yes normal to inspection Palpation (GI): Soft to palpation, Tenderness to palpation present (GI) in the epigastrum, in the LLQ, in the RLQ and suprapubicly; with no rebound tenderness, no guarding and not rigid General: Yes no CVA tenderness Back/Spine/Pelvis Back: no CVA tenderness Skin Rashes: no rashes Wounds: no wounds Neuro General: patient oriented x3, tone normal and no meningeal signs Gait exam (Neuro): Normal gait present Extrem General: Yes normal to inspection Course Course Course Narrative: -1255--mild leukocytosis of 11.0. T bili elevated. AST/ALT acute on chronically elevated. Alk phos acute on chronically elevated likely from ETOH abuse -ethanol negative 1300--CT abdomen pelvis w IV con IMPRESSION: Question mild enterocolitis. Wall thickening of the distal thoracic esophagus and prominent posterior mediastinal paraesophageal lymph nodes, question distal esophagitis. Correlation with fluoroscopy exam or endoscopy should be considered. Mild diverticulosis of the colon. No evidence of diverticulitis. ? Question mild diffuse bladder wall thickening. Correlation with urinalysis recommended. ? Fleischner guidelines were followed. >>1328--on re-evaluation patient reports continued abdominal pain, unable to tolerate p.o.. Results discussed. Patient feels unsafe for discharge home at this time. Abdomen remains soft diffusely tender. Plan to admit for further management Medical Decision Making Medical Decision Making [facility] Narrative: 47-year-old male with a past medical history of depression, diabetes, hypoglycemia, substance abuse, presenting to the ED complaining of abdominal pain, nausea, vomiting, decreased p.o. intake x 2 days. On exam vital signs stable, NAD, nontoxic appearing, abdomen soft epigastric and lower abdominal tenderness, no rebound or guarding, no CVAT. Concern for pancreatitis vs cholecystitis/lithiasis vs appendicitis/diverticulitis vs metabolic abnormalities including dehydration vs gastroenteritis. Lower suspicion for renal stone/pyelo, testicular torsion or ACS Plan: EKG, labs, UA, CT AP, IVF, symptomatic treatment, re-evaluate Please refer to course for remaining clinical decision making, interpretation of labs/imaging results, and discussions with consultants and/or family members. Differential Diagnosis Differential Diagnoses: The differential diagnosis associated with the presentation includes As above Admission/Observation Consideration of admission/observation: Escalation of care including admission/observation considered Lab Data [facility] Lab Attestation statement: I reviewed the patient's lab results. 01/14/23 09:38 01/14/23 09:38 Labs: Lab Results 01/14/23 01/14/23 01/14/23 Range/Units 09:38 09:38 09:38 WBC 11.0 H (4.8-10.8) X10*3/uL RBC 4.38 L (4.60-5.80) X10*6/uL Hgb 16.4 (14.0-18.0) g/dl Hct 44.1 (42.0-52.0) % MCV 100.7 H (80.0-98.0) fL MCH 37.4 H (27.0-33.0) pg MCHC 37.2 H (31.0-36.0) g/dl RDW 12.3 (11.0-16.0) % Plt Count 182 D (160-400) X10*3/uL MPV 10.1 (9.4-12.4) fL Immature Gran % (Auto) 0.5 H (0.0-0.4) % Neut % (Auto) 76.2 H (45-73) % Lymph % (Auto) 12.2 L (20-40) % [place] % (Auto) 10.6 (2-11) % Eos % (Auto) 0.2 (0-4) % Baso % (Auto) 0.3 (0-2) % Lymph # (Auto) 1.3 (1.2-4.9) X10*3/uL [place] # (Auto) 1.2 (0.1-1.2) X10*3/uL Eos # (Auto) 0.0 (0.0-0.4) X10*3/uL Baso # (Auto) 0.0 (0.0-0.2) X10*3/uL Abs Immat Gran (auto) 0.06 H (0.00-0.03) X10*3/uL Absolute Neuts (auto) 8.4 H (2.0-8.3) x10*3/uL Absolute Nucleated RBC 0.000 (0.0-0.012) X10*3/uL Nucleated RBC % (auto) 0.0 (0.0-0.2) /100WBC Sodium 139 (135-145) mmol/L Potassium 3.6 (3.3-5.1) mmol/L Chloride 97 (96-108) mmol/L Carbon Dioxide 31 H (22-29) mmol/L Anion Gap 15 (12-20) BUN 11 (9-16) mg/dL Creatinine 0.75 (0.5-1.4) mg/dL Estim Creat Clear Calc 115.9 Estimated GFR > 60 Random Glucose 158 H (60-115) mg/dL Calcium 9.2 D (8.4-10.2) mg/dL Magnesium 1.7 (1.6-2.6) mg/dL Total Bilirubin 2.2 H (0.0-1.0) mg/dL Direct Bilirubin 0.8 H (0.0-0.5) mg/dL AST 112 H (5-37) U/L ALT 64 H (0-40) U/L Alkaline Phosphatase 173 H (39-117) U/L Total Protein 6.4 L (6.5-8.0) g/dL Albumin 3.9 (3.5-5.0) g/dL Lipase 10 (8-78) U/L Urine Color Urine Appearance Urine pH (5.0-9.0) Ur Specific [place] (1.005-1.025) Urine Protein (Neg-Trace) mg/dL Urine Glucose (UA) (Negative) mg/dL Urine Ketones (Negative) mg/dL Urine Blood (Negative) Urine Nitrite (Negative) Ur Leukocyte Esterase (Negative) Urine RBC (0-2) /HPF Urine WBC (0-5) /HPF Ur Squamous Epith Cells (0-2) /HPF Urine Bacteria (None Seen) Hyaline Casts (0-2) /LPF Ethyl Alcohol < 10 mg/dL Acetone, Qual Negative (Negative) COVID-19 (DAYANA) Negative (Negative) COVID-19 Clin Com See Note 01/14/23 Range/Units 14:26 WBC (4.8-10.8) X10*3/uL RBC (4.60-5.80) X10*6/uL Hgb (14.0-18.0) g/dl Hct (42.0-52.0) % MCV (80.0-98.0) fL MCH (27.0-33.0) pg MCHC (31.0-36.0) g/dl RDW (11.0-16.0) % Plt Count (160-400) X10*3/uL MPV (9.4-12.4) fL Immature Gran % (Auto) (0.0-0.4) % Neut % (Auto) (45-73) % Lymph % (Auto) (20-40) % [place] % (Auto) (2-11) % Eos % (Auto) (0-4) % Baso % (Auto) (0-2) % Lymph # (Auto) (1.2-4.9) X10*3/uL [place] # (Auto) (0.1-1.2) X10*3/uL Eos # (Auto) (0.0-0.4) X10*3/uL Baso # (Auto) (0.0-0.2) X10*3/uL Abs Immat Gran (auto) (0.00-0.03) X10*3/uL Absolute Neuts (auto) (2.0-8.3) x10*3/uL Absolute Nucleated RBC (0.0-0.012) X10*3/uL Nucleated RBC % (auto) (0.0-0.2) /100WBC Sodium (135-145) mmol/L Potassium (3.3-5.1) mmol/L Chloride (96-108) mmol/L Carbon Dioxide (22-29) mmol/L Anion Gap (12-20) BUN (9-16) mg/dL Creatinine (0.5-1.4) mg/dL Estim Creat Clear Calc Estimated GFR Random Glucose (60-115) mg/dL Calcium (8.4-10.2) mg/dL Magnesium (1.6-2.6) mg/dL Total Bilirubin (0.0-1.0) mg/dL Direct Bilirubin (0.0-0.5) mg/dL AST (5-37) U/L ALT (0-40) U/L Alkaline Phosphatase (39-117) U/L Total Protein (6.5-8.0) g/dL Albumin (3.5-5.0) g/dL Lipase (8-78) U/L Urine Color Yellow Urine Appearance Clear Urine pH 7.5 (5.0-9.0) Ur Specific [place] >= 1.030 H (1.005-1.025) Urine Protein 30 (1+) H (Neg-Trace) mg/dL Urine Glucose (UA) Negative (Negative) mg/dL Urine Ketones 15 (Negative) mg/dL Urine Blood Negative (Negative) Urine Nitrite Negative (Negative) Ur Leukocyte Esterase Negative (Negative) Urine RBC 0-2 (0-2) /HPF Urine WBC 0-5 (0-5) /HPF Ur Squamous Epith Cells 0-2 (0-2) /HPF Urine Bacteria None Seen (None Seen) Hyaline Casts 0-2 (0-2) /LPF Ethyl Alcohol mg/dL Acetone, Qual (Negative) COVID-19 (DAYANA) (Negative) COVID-19 Clin Com Radiology Impression Discussion of test interpretation with radiology: I have reviewed the radiologist's reading. External Record Review External record reviewed: Inpatient record, Office record, Outpatient record, Prior outpatient labs, Prior outpatient radiology, Primary care record and Outside ED record Medications Administered Generic Name Dose Route Start Last Admin Trade Name Freq PRN Reason Stop Dose Admin Lactated Ringer's 1,000 mls @ 100 mls/hr 01/14/23 15:15 01/14/23 17:33 Lr IVCONT 100 mls/hr .Q10H ASHLEIGH Administration Insulin Human Lispro 0 unit 01/14/23 16:30 01/14/23 16:26 Insulin Lispro 100 Unit/Ml 3 Ml Vial SUBCUT Not Given QIDACHS [facility] Protocol Pantoprazole Sodium 40 mg 01/14/23 16:30 01/14/23 17:29 Pantoprazole Sodium 40 Mg/10 Ml Vial IVPUSH 40 mg BID@0630,1630 ASHLEIGH Administration Sodium Chloride 3 ml 01/14/23 16:00 01/14/23 17:07 0.9 % Sodium Chloride Flush 3 Ml Syringe IVFLUSH 3 ml QSHIFT ASHLEIGH Administration Discontinued Medications Generic Name Dose Route Start Last Admin Trade Name Marloq PRN Reason Stop Dose Admin Famotidine 20 mg 01/14/23 09:33 01/14/23 09:39 Famotidine/Pf 20 Mg/2 Ml Vial IVPUSH 01/14/23 09:34 20 mg ONCE ONE Administration Sodium Chloride 1,000 mls @ 999 mls/hr 01/14/23 09:45 01/14/23 10:40 Ns IV 01/14/23 10:45 Infused .Q1H1M ASHLEIGH Infusion Sodium Chloride 1,000 mls @ 999 mls/hr 01/14/23 13:30 01/14/23 14:50 Ns IV 01/14/23 14:30 Infused .Q1H1M ASHLEIGH Infusion Levofloxacin 750 mg in 150 mls @ 100 mls/hr 01/14/23 13:28 01/14/23 18:00 Levaquin IV 01/14/23 14:57 Infused ONCE ONE Infusion Metronidazole 500 mg in 100 mls @ 100 mls/hr 01/14/23 13:28 01/14/23 15:04 Flagyl IV 01/14/23 14:27 Infused ONCE ONE Infusion Iohexol 85 ml 01/14/23 10:51 01/14/23 10:51 Iohexol 350 Mg/Ml 100 Ml Infus..Btl IV 01/14/23 10:52 85 ml ONCE ONE Administration Morphine Sulfate 2 mg 01/14/23 09:33 01/14/23 09:39 Morphine Sulfate 2 Mg/Ml Cartridge IVPUSH 01/14/23 09:34 2 mg ONCE ONE Administration Protocol Morphine Sulfate 2 mg 01/14/23 13:27 01/14/23 13:49 Morphine Sulfate 2 Mg/Ml Cartridge IVPUSH 01/14/23 13:28 2 mg ONCE ONE Administration Protocol Ondansetron HCl 4 mg 01/14/23 09:33 01/14/23 09:39 Ondansetron Hcl 4 Mg/2 Ml Vial IVPUSH 01/14/23 09:34 4 mg ONCE ONE Administration Discharge Plan Discharge Clinical Impression: Enterocolitis Patient Disposition: Admitted As Inpatient Interventions: Admission Worksheet (ED) Last Done: 01/14/23 15:43 Discharge Date/Time: 01/14/23 15:59
--- NOTE | 2023-01-14 09:33 | ECG_ITS ---
Test Reason : abd pain Blood Pressure : / mmHG Vent. Rate : 066 BPM Atrial Rate : 066 BPM P-R Int : 128 ms QRS Dur : 094 ms QT Int : 450 ms P-R-T Axes : 014 079 059 degrees QTc Int : 471 ms Normal sinus rhythm Normal ECG When compared with ECG of 06-MAY-2022 21:26, No significant change was found Referred By: Stella Dixon Electronically Signed By:Enrrique Noel
[2023-01-14] MEDS: Morphine Sulfate 2 MG/ML CARTRIDGE IVPUSH ×2 (09:39→13:49)
[2023-01-14] MEDS: ondansetron HCL 4 MG/2 ML VIAL IVPUSH (09:39)
[2023-01-14] MEDS: 0.9 % Sodium Chloride 1,000 ML 999 ML IV ×2 (09:39→13:49)
[2023-01-14] MEDS: Famotidine/PF 20 MG/2 ML VIAL IVPUSH (09:39)
[2023-01-14 09:53] LABS: MANUAL DIFF FLAG NO
[2023-01-14 09:55] LABS: Basophils Percent Auto 0.3 % (0-2); Eosinophils Percent Auto 0.2 % (0-4); Hematocrit 44.1 % (42.0-52.0); Hemoglobin 16.4 g/dl (14.0-18.0); Imm Gran Abs Auto 0.06 X10*3/uL (0.00-0.03); Imm Gran Pct Auto 0.5 % (0.0-0.4); Lymphocytes Absolute Auto 1.3 X10*3/uL (1.2-4.9); Lymphocytes Percent Auto 12.2 % (20-40); Mean Corpuscular HGB Conc 37.2 g/dl (31.0-36.0); Mean Corpuscular Hemoglobin 37.4 pg (27.0-33.0); Mean Corpuscular Volume 100.7 fL (80.0-98.0); Mean Platelet Volume 10.1 fL (9.4-12.4); Monocytes Absolute Auto 1.2 X10*3/uL (0.1-1.2); Monocytes Percent Auto 10.6 % (2-11); Neutrophils Absolute Auto 8.4 x10*3/uL (2.0-8.3); Neutrophils Percent Auto 76.2 % (45-73); Platelet Count 182 X10*3/uL (160-400); Red Blood Count 4.38 X10*6/uL (4.60-5.80); Red Cell Distribution Width 12.3 % (11.0-16.0)
[2023-01-14 10:21] LABS: Alanine Aminotransferase 64 U/L (0-40); Albumin Level 3.9 g/dL (3.5-5.0); Alkaline Phosphatase 173 U/L (39-117); Anion Gap 15 (12-20); Aspartate Amino Transferase 112 U/L (5-37); Bilirubin Direct 0.8 mg/dL (0.0-0.5); Bilirubin Total 2.2 mg/dL (0.0-1.0); Blood Urea Nitrogen 11 mg/dL (9-16); Calcium 9.2 mg/dL (8.4-10.2); Carbon Dioxide 31 mmol/L (22-29); Chloride 97 mmol/L (96-108); Creatinine Clr Calc Pharmacy 115.9; Estimated Glomerular Filt Rate > 60; Ethanol < 10 mg/dL; Glucose Random 158 mg/dL (60-115); Lipase 10 U/L (8-78); Magnesium 1.7 mg/dL (1.6-2.6); Potassium 3.6 mmol/L (3.3-5.1); Sodium 139 mmol/L (135-145); Total Protein 6.4 g/dL (6.5-8.0)
[2023-01-14 10:26] LABS: COVID-19 Test Negative (Negative); IDNOW Serial# BCCEAD1C
[2023-01-14] MEDS: iohexoL 350 MG/ML 100 ML INFUS..BTL 85 ML IV (10:51)
[2023-01-14 13:05] LABS: Acetone, serum QL Negative (Negative)
[2023-01-14] MEDS: metroNIDAZOLE/NS 500 MG/100 ML PIGGYBACK 100 MG IV ×2 (14:04→20:50)
--- NOTE | 2023-01-14 14:06 | P.HPHOSP_ITS ---
History of Present Illness Date of Service: 01/14/23 Attending physician on admission: Félix Dawkins Chief Complaint: Abdominal pain, vomitting Pt is a 47-year-old male with a PMH significant for?depression, Type I diabetes, substance abuse, and hx of pancreatitis in 2018 who presents to the ED with nausea, vomiting, and abdominal pain for the past two days. Pt states he had nonstop vomiting for 48 hours prior to presentation, which caused throat discomfort and burning. Patient also had diffuse abdominal pain which he describes as hot, stabbing and rates 7/10. Has not been able to keep anything down during this time. Pt had an episode of pancreatitis in 2018 and thought this felt similar, which prompted his visit. Patient denies fever, chills, diarrhea. No polyuria, dysuria. Denies chest pain/pressure, palpitations. Occasional chest discomfort with breathing depending on positioning of his head. Of note, pt has a history of IV heroin use and alcohol abuse, though currently clean and down to 1-2 drinks per week. In the ED patient was afebrile, slightly hypertensive at 145/87. Labs were significant for slight leukocytosis of 11.0, random glucose of 158, transaminitis of bilirubin 2.2, AST 112, ALT 64, and alk-phos 173. CT?of the abdomen pelvis showed possible mild enterocolitis, question of distal esophagitis, mild diverticulosis with no evidence of diverticulitis, and question of mild diffuse bladder wall thickening. EKG demonstrated normal sinus rhythm with no evidence of ST elevations or depressions. Pt was treated with IVF, high-density drawn, famotidine, morphine, and metronidazole. Pt will be admitted to the hospital for treatment of enterocolitis with IVF, analgesics, and antibiotics. Review of Systems Review of Systems: Nausea, vomiting, abdominal pain x2 days Unable to tolerate anything p.o. Denies hematemesis No fever, chills, diarrhea No chest pain/pressure, palpitations No difficulty breathing Denies cough Yes all other systems are reviewed and are negative [facility] Medical History Depression Diabetes Diabetes type 1, uncontrolled History of drug abuse Hypoglycemia unawareness associated with type 1 diabetes mellitus Type 1 diabetes Vitamin D deficiency Family History Father No problems noted. Mother No problems noted. Surgical History Hx of hernia repair Social History Household Members: Family Household Members Other:: mother Housing: House Do you presently have visiting nurse or other home services: No Alcohol intake: former Patient Tobacco Use Status: Current someday Tobacco user Tobacco use type: Cigarette Cigarettes Per Day: 2 Smoked in Last 30 Days: Yes Patient Interested in Nicotine Replacement: Yes Use of substances other than those prescribed or required for medical reasons: No Substance Use Type: Marijuana Substance Use Frequency: Daily Last Used Substance: Hours (ago) Currently Displaying Signs/Symptoms of Drug Intoxication Withdrawal: No Any prior treatment program specific to substance use: No Have you been hit, kicked, punched, or otherwise hurt by someone within the past year? If so, by whom?: No Do you feel safe in your current relationship?: No Is there a partner from a previous relationship who is making you feel unsafe now?: No Are you made to feel afraid or neglected: No Advance Directives: Yes Advance Directives on File: Yes Advance Directives Date on File: 08/29/20 Do you have thoughts of harming others: None Do you have a plan to hurt others: No Plan Recently lost weight without trying: No Eating poorly because of decreased appetite: No Nutrition Risks: No Nutritional Risk Poor oral hygiene: No service: No Current occupational status: unemployed Meds Allergies Allergy/AdvReac Type Severity Reaction Status Date / Time hydroxyzine [From VISTARIL] Allergy Intermediate RASH, Verified 01/14/23 09:18 ANXIOUS quetiapine [Seroquel] Allergy Unknown Unknown Verified 01/14/23 09:18 Active Medications: Current Medications Sodium Chloride (Ns) 1,000 mls @ 999 mls/hr IV .Q1H1M ASHLEIGH Stop: 01/14/23 14:30 Last Admin: 01/14/23 13:49 Dose: 999 mls/hr Levofloxacin (Levaquin) 750 mg in 150 mls @ 100 mls/hr IV ONCE ONE Stop: 01/14/23 14:57 Metronidazole (Flagyl) 500 mg in 100 mls @ 100 mls/hr IV ONCE ONE Stop: 01/14/23 14:27 Last Admin: 01/14/23 14:04 Dose: 100 mls/hr Home Medications Medication Instructions Recorded Confirmed Last Taken Type clonazepam 0.5 mg tablet 0.5 mg PO BID PRN Anxiety 07/16/21 01/14/23 Unknown History cholecalciferol (vitamin D3) 50 100 mcg PO DAILY 08/10/21 01/14/23 Unknown History mcg (2,000 unit) capsule clonidine HCl 0.1 mg tablet 1 tab PO DAILY 08/10/21 01/14/23 Unknown History lisinopril 5 mg tablet 5 mg PO DAILY 10/30/22 01/14/23 Unknown History Physical Exam Vital Signs and Narrative: Vital Signs: Last Vital Signs Temp 98.3 F 01/14/23 09:20 Pulse 97 01/14/23 09:20 Resp 14 01/14/23 09:20 BP 145/87 H 01/14/23 09:20 Pulse Ox 98 01/14/23 09:20 O2 Del Method Room Air 01/14/23 09:20 BMI result Body Mass Index 20.9 Constitutional: Alert, in no acute distress. Mental Status: Oriented to person, place and time. Eyes: Pupils are equal, round, and reactive to light. Ear, Nose, and Throat: Oropharynx clear, mucous membranes dry. Ears and nose without deformities. Trachea midline. Respiratory: Mild mid-lung expiratory rhonchi. Cardiovascular: S1, S2 regular. No murmurs, rubs, or gallops. Gastrointestinal: Abdomen soft, non-distended, with epigastric, suprapubic, and left-sided tenderness. Normal bowel sounds. Neurologic: Cranial nerves II-XII are grossly intact bilaterally. No focal neurological deficits. Moves all extremities spontaneously. Skin: No rashes or lesions noted. Musculoskeletal: No cyanosis or clubbing. Extremities: No edema. Psychiatric: Normal mood and affect. Results Labs 01/14/23 09:38 01/14/23 09:38 Labs: Laboratory Results - last 24 hr 01/14/23 01/14/23 01/14/23 09:38 09:38 09:38 MCV 100.7 H MCH 37.4 H MCHC 37.2 H RDW 12.3 Plt Count 182 D MPV 10.1 Immature Gran % (Auto) 0.5 H Neut % (Auto) 76.2 H Lymph % (Auto) 12.2 L [place] % (Auto) 10.6 Eos % (Auto) 0.2 Baso % (Auto) 0.3 Lymph # (Auto) 1.3 [place] # (Auto) 1.2 Eos # (Auto) 0.0 Baso # (Auto) 0.0 Abs Immat Gran (auto) 0.06 H Absolute Neuts (auto) 8.4 H Absolute Nucleated RBC 0.000 Nucleated RBC % (auto) 0.0 Anion Gap 15 Estim Creat Clear Calc 115.9 Estimated GFR > 60 Random Glucose 158 H Calcium 9.2 D Magnesium 1.7 Total Bilirubin 2.2 H Direct Bilirubin 0.8 H AST 112 H ALT 64 H Alkaline Phosphatase 173 H Total Protein 6.4 L Albumin 3.9 Lipase 10 Ethyl Alcohol < 10 Acetone, Qual Negative COVID-19 (DAYANA) Negative COVID-19 Clin Com See Note Imaging Radiologist's Impressions: Impressions Abdomen/Pelvis CT 01/14/23 10:52 IMPRESSION: Question mild enterocolitis. Wall thickening of the distal thoracic esophagus and prominent posterior mediastinal paraesophageal lymph nodes, question distal esophagitis. Correlation with fluoroscopy exam or endoscopy should be considered. Mild diverticulosis of the colon. No evidence of diverticulitis. Question mild diffuse bladder wall thickening. Correlation with urinalysis recommended. Fleischner guidelines were followed. Assessment and Plan (1) Enterocolitis: Status: Acute Plan Pt is a 47-year-old male with a PMH significant for?depression, Type I diabetes, substance abuse, and hx of pancreatitis in 2018 who presents to the ED with nausea, vomiting, and abdominal pain for the past two days. Pt will be admitted to the hospital for treatment of enterocolitis with IVF, analgesics, and antibio tics. Enterocolitis CT showing possible mild enterocolitis Pt with N/V, abdominal pain x2 days Will treat with IV abx: Levofloxacin, metronidazole Morphine 4mg q4hrs for pain management NPO for now, advance to clear liquid diet tomorrow IVF: lactated ringers Protonix IV Question of mild diffuse bladder wall thickening Finding on CT of abdomen/pelvis Pt not complaining of polyuria or dysuria Check UA Question of distal esophagitis CT of abdomen and pelvis found wall thickening of the distal thoracic esophagus a prominent posterior mediastinal paraesophageal lymph nodes Most likely secondary to vomiting Treat as above Transaminitis Possibly secondary to enterocolitis CT with normal liver findings Pt not complaining of URQ pain Follow CMP Type I diabetes Hold home meds SSI only for now, add Lantus once starts p.o. intake Depression Continue clonazepam lHTN Hold lisinopril tonight, resume tomorrow if BP warrants it Full Code Attending:? DVT Prophylaxis: Lovenox Pt will require a hospitalization of at least two nights for treatment of?enterocolitis with IV fluids, analgesics, and antibiotics. Time Spent With Patient Time: Total time managing care of this patient today ____ minutes. Quality Stroke Does the patient have a stroke diagnosis?: No VTE Prior VTE?: No VTE Risk Level:: Medical - moderate - high VTE Device Contraindication: N/A - Device Ordered VTE Drug Contraindication: Treatment Not Indicated
[2023-01-14 14:37] LABS: Appearance Urine Clear; Color Urine Yellow; Glucose Urine UA Negative (Negative); Leukocyte Esterase Urine Negative (Negative); Nitrite Urine Negative (Negative); PH 7.5 (5.0-9.0); Specific Gravity - Urine >= 1.030 (1.005-1.025); UMIC TRIGGER UACC YES; Urine Blood Negative (Negative); Urine Ketones 15 mg/dL (Negative); Urine Protein 30 (1+) mg/dL (Neg-Trace)
--- NOTE | 2023-01-14 14:49 | PHA.MEDREC ---
Pharmacy Consult ? Medication Reconciliation Pharmacy has completed the medication reconciliation. Patient has insulin pump
[2023-01-14 14:50] LABS: Bacteria Urine None Seen (None Seen); Hyaline Casts Urine 0-2 /LPF (0-2); RBC Urine 0-2 /HPF (0-2); Squamous Epithelial Cell Urine 0-2 /HPF (0-2); WBC Urine 0-5 /HPF (0-5)
[2023-01-14] MEDS: levoFLOXacin/D5W 750 MG/150 ML PIGGYBACK 100 MG IV (15:04)
[2023-01-14 16:00] VITALS: BP 159/75; PULSE 80; RESP 16; TEMP 36.6; O2SAT 97
[2023-01-14 16:25] LABS: Glucose, Whole Blood 112 mg/dL (60-115)
[2023-01-14] MEDS: 0.9 % Sodium Chloride Flush 3 ML SYRINGE IVFLUSH (17:07)
[2023-01-14] MEDS: Pantoprazole Sodium 40 MG/10 ML VIAL IVPUSH (17:29)
[2023-01-14] MEDS: Lactated Ringers 1,000 ML 100 ML IVCONT (17:33)
[2023-01-14 20:00] VITALS: BP 134/74; PULSE 86; RESP 16; TEMP 36.9; O2SAT 99
[2023-01-14 20:31] LABS: Glucose, Whole Blood 116 mg/dL (60-115)
[2023-01-14] MEDS: Morphine Sulfate 4 MG/ML CARTRIDGE IVPUSH (20:50)
[2023-01-15 03:34] VITALS: BP 173/79; PULSE 77; RESP 18; TEMP 36.3; O2SAT 100
[2023-01-15] MEDS: clonazePAM 0.5 MG TABLET PO (03:55)
[2023-01-15] MEDS: Morphine Sulfate 4 MG/ML CARTRIDGE IVPUSH ×5 (03:55→21:45)
[2023-01-15] MEDS: Lactated Ringers 1,000 ML 100 ML IVCONT (03:57)
[2023-01-15] MEDS: metroNIDAZOLE/NS 500 MG/100 ML PIGGYBACK 100 MG IV ×3 (05:26→21:35)
[2023-01-15] MEDS: Pantoprazole Sodium 40 MG/10 ML VIAL IVPUSH ×2 (05:27→17:29)
[2023-01-15 06:09] LABS: Hematocrit 38.2 % (42.0-52.0); Hemoglobin 13.5 g/dl (14.0-18.0); Mean Corpuscular HGB Conc 35.3 g/dl (31.0-36.0); Mean Corpuscular Hemoglobin 36.1 pg (27.0-33.0); Mean Corpuscular Volume 102.1 fL (80.0-98.0); Mean Platelet Volume 10.7 fL (9.4-12.4); Platelet Count 137 X10*3/uL (160-400); Red Blood Count 3.74 X10*6/uL (4.60-5.80); White Blood Count 8.2 X10*3/uL (4.8-10.8)
[2023-01-15 07:20] LABS: Anion Gap 17 (12-20); Carbon Dioxide 23 mmol/L (22-29); Chloride 101 mmol/L (96-108); Potassium 3.2 mmol/L (3.3-5.1); Sodium 138 mmol/L (135-145)
[2023-01-15 07:21] LABS: Alanine Aminotransferase 43 U/L (0-40); Albumin Level 3.1 g/dL (3.5-5.0); Alkaline Phosphatase 130 U/L (39-117); Aspartate Amino Transferase 67 U/L (5-37); Bilirubin Total 1.9 mg/dL (0.0-1.0); Blood Urea Nitrogen 8 mg/dL (9-16); Calcium 7.9 mg/dL (8.4-10.2); Creatinine Clr Calc Pharmacy 131.7; Estimated Glomerular Filt Rate > 60; Glucose Random 112 mg/dL (60-115); Magnesium 1.6 mg/dL (1.6-2.6)
[2023-01-15 07:26] VITALS: BP 151/73; PULSE 70; RESP 18; TEMP 36.6; O2SAT 98
[2023-01-15 07:43] LABS: Glucose, Whole Blood 117 mg/dL (60-115)
[2023-01-15] MEDS: KCl 40 mEq in 5% Dex/0.9% Sod 40 MEQ/1,000 ML IV.SOLN 100 MEQ IVCONT ×2 (08:06→21:39)
[2023-01-15] MEDS: Cholecalciferol (Vitamin D3) 25 MCG TABLET 100 MCG PO (09:12)
[2023-01-15] MEDS: cloNIDine HCL 0.1 MG TABLET PO (09:12)
--- NOTE | 2023-01-15 09:22 | MHC.CM.PN ---
CM MET WITH PT AT BEDSIDE. LIVES IN A H WITH MOTHER. INDEPENDENT AT BASELINE, NO SERVICES OR DME. + HCP ON FILE. + COVID VAX X3 PCP VÍCTOR ARAUJO. DP: HOME, NO SERVICES ANTICIPATED. MOTHER WILL TRANSPORT ON DC. CM WILL CONTINUE TO FOLLOW.
[2023-01-15 11:24] LABS: Glucose, Whole Blood 150 mg/dL (60-115)
--- NOTE | 2023-01-15 11:53 | HO.PM.IMPN ---
Subjective Subjective Date of Service: 01/15/23 Interval History: Feeling better this morning is still with esophageal burning, and persistent lower abdominal pain mostly with position change in with superficial palpation, no diarrhea, no fevers no chills, no hematemesis, no melena taking sips of water. Review of Systems Review of Systems: Yes all other systems are reviewed and are negative Physical Exam Vital Signs: Vital Signs: Last Vital Signs Temp 97.9 F 01/15/23 07:26 Pulse 70 01/15/23 07:26 Resp 18 01/15/23 07:26 BP 151/73 H 01/15/23 07:26 Pulse Ox 98 01/15/23 07:26 O2 Del Method Room Air 01/15/23 07:26 BMI result Body Mass Index 20.9 Const: Other: General awake alert x3, resting comfortably in no acute distress. Neck supple no JVD. CVS regular rate rhythm, Respiratory lungs clear to auscultation, no respiratory distress, no wheeze, no rhonchi. Gastrointestinal abdomen soft, tenderness to superficial palpation mid abdomen,bowel sounds audible, no guarding , no rigidity. Extremities no edema. Neuro nonfocal Psych appropriate affect Skin no rash Objective Data Active Medications Acetaminophen (Acetaminophen 325 Mg Tablet) 650 mg PO Q6H PRN PRN Reason: Pain, Mild (Pain Scale 1-3) Clonazepam (Clonazepam 0.5 Mg Tablet) 0.5 mg PO BID PRN PRN Reason: Anxiety Last Admin: 01/15/23 03:55 Dose: 0.5 mg Documented By: NADIA Clonidine HCl (Clonidine Hcl 0.1 Mg Tablet) 0.1 mg PO DAILY [facility]; Protocol Last Admin: 01/15/23 09:12 Dose: 0.1 mg Documented By: JOSE ALFREDO Glucose (Glucose Gel 15 Gm Gel..Gram.) 15 gm PO Q15M PRN; Protocol PRN Reason: per Hypoglycemia Standing Ord. Dextrose (D10) 250 mls @ 750 mls/hr IV Q15M PRN; Protocol PRN Reason: per Hypoglycemia Standing Ord. Metronidazole (Flagyl) 500 mg in 100 mls @ 100 mls/hr IV Q8H [facility] Last Infusion: 01/15/23 06:34 Dose: 0 mls/hr Documented By: NADIA Levofloxacin (Levaquin) 750 mg in 150 mls @ 100 mls/hr IV Q24H [facility] Potassium Chloride/Dextrose/Sod Cl (Kcl 40 Meq In 5% Dex/0.9% Sod) 40 meq in 1,000 mls @ 100 mls/hr IVCONT .Q10H [facility] Last Admin: 01/15/23 08:06 Dose: 100 mls/hr Documented By: JOSE ALFREDO Insulin Human Lispro (Insulin Lispro 100 Unit/Ml 3 Ml Vial) 0 unit SUBCUT QIDACHS [facility]; Protocol Last Admin: 01/15/23 11:30 Dose: Not Given Documented By: JOSE ALFREDO Non-Admin Reason: No Insulin Coverage Morphine Sulfate (Morphine Sulfate 4 Mg/Ml Cartridge) 4 mg IVPUSH Q4H PRN; Protocol PRN Reason: Pain, Severe (Pain Scale 7-10) Last Admin: 01/15/23 09:19 Dose: 4 mg Documented By: JOSE ALFREDO Ondansetron HCl (Ondansetron Hcl 4 Mg/2 Ml Vial) 4 mg IVPUSH Q8H PRN PRN Reason: Nausea and Vomiting Pantoprazole Sodium (Pantoprazole Sodium 40 Mg/10 Ml Vial) 40 mg IVPUSH BID@0630,1630 [facility] Last Admin: 01/15/23 05:27 Dose: 40 mg Documented By: NADIA Pharmacy Consult (Consult Rx Perform Med Rec) 1 each MISCELLANE ONCE PRN PRN Reason: Consult order Sodium Chloride (0.9 % Sodium Chloride Flush 3 Ml Syringe) 3 ml IVFLUSH QSHIFT [facility] Last Admin: 01/15/23 09:00 Dose: Not Given Documented By: JOSE ALFREDO Non-Admin Reason: IV Running Vitamin D (Cholecalciferol (Vitamin D3) 25 Mcg Tablet) 100 mcg PO DAILY [facility] Last Admin: 01/15/23 09:12 Dose: 100 mcg Documented By: JOSE ALFREDO Labs 01/15/23 05:12 01/15/23 05:12 Labs: Laboratory Results - last 24 hr 01/14/23 01/14/23 01/14/23 09:38 14:26 16:20 MCV MCH MCHC RDW Plt Count MPV Absolute Nucleated RBC Nucleated RBC % (auto) Anion Gap Estim Creat Clear Calc Estimated GFR POC Glucose 112 Random Glucose Calcium Magnesium Total Bilirubin AST ALT Alkaline Phosphatase Total Protein Albumin Urine Color Yellow Urine Appearance Clear Urine pH 7.5 Ur Specific [place] >= 1.030 H Urine Protein 30 (1+) H Urine Glucose (UA) Negative Urine Ketones 15 Urine Blood Negative Urine Nitrite Negative Ur Leukocyte Esterase Negative Urine RBC 0-2 Urine WBC 0-5 Ur Squamous Epith Cells 0-2 Urine Bacteria None Seen Hyaline Casts 0-2 Acetone, Qual Negative 01/14/23 01/15/23 01/15/23 20:20 05:12 05:12 MCV 102.1 H MCH 36.1 H MCHC 35.3 RDW 12.0 Plt Count 137 L MPV 10.7 Absolute Nucleated RBC 0.000 Nucleated RBC % (auto) 0.0 Anion Gap 17 Estim Creat Clear Calc 131.7 Estimated GFR > 60 POC Glucose 116 H Random Glucose 112 Calcium 7.9 L D Magnesium 1.6 Total Bilirubin 1.9 H AST 67 H ALT 43 H Alkaline Phosphatase 130 H D Total Protein 5.0 L Albumin 3.1 L Urine Color Urine Appearance Urine pH Ur Specific [place] Urine Protein Urine Glucose (UA) Urine Ketones Urine Blood Urine Nitrite Ur Leukocyte Esterase Urine RBC Urine WBC Ur Squamous Epith Cells Urine Bacteria Hyaline Casts Acetone, Qual 01/15/23 01/15/23 07:24 11:19 MCV MCH MCHC RDW Plt Count MPV Absolute Nucleated RBC Nucleated RBC % (auto) Anion Gap Estim Creat Clear Calc Estimated GFR POC Glucose 117 H 150 H Random Glucose Calcium Magnesium Total Bilirubin AST ALT Alkaline Phosphatase Total Protein Albumin Urine Color Urine Appearance Urine pH Ur Specific [place] Urine Protein Urine Glucose (UA) Urine Ketones Urine Blood Urine Nitrite Ur Leukocyte Esterase Urine RBC Urine WBC Ur Squamous Epith Cells Urine Bacteria Hyaline Casts Acetone, Qual Assessment and Plan (1) Type 1 diabetes: Status: Acute (2) Enterocolitis: Status: Acute Plan 47-year-old male with a PMH significant for?depression, Type I diabetes, substance abuse, and hx of pancreatitis in 2018 who presents to the ED with nausea, vomiting, and abdominal pain for the past two days. Pt will be admitted to the hospital for treatment of enterocolitis with IVF, analgesics, and antibiotics. Distal esophagitis/heart burn Burning sensation upper chest, improving, likely due to ETOH CT of abdomen and pelvis found wall thickening of the distal thoracic esophagus a prominent posterior mediastinal paraesophageal lymph nodes Continue IV ppi, anti emetics, IV fluids at clear liquid diet GI consult for possible upper endoscopy Abdominal pain/ Enterocolitis CT showing possible mild enterocolitis, clinically patient is stable, abdominal pain seems more musculoskeletal due to dry heaving and nausea vomiting Pt with N/V, abdominal pain x2 days Mild leukocytosis, no fevers on iv Levofloxacin, and metronidazole day 2 Will advance diet to clear liquid, follow clinical course Hypokalemia will replete and follow labs Question of mild diffuse bladder wall thickening Finding on CT of abdomen/pelvis Pt. not complaining of polyuria or dysuria, UA unremarkable outpatient follow-up with Urology Transaminitis Likely due to alcohol intake strongly recommend to abstain from alcohol,T. bili trending down. Type I diabetes Hold home meds, continue SSI Depression Continue clonazepam lHTN Resume lisinopril Alcohol use disorder consultation done Full Code DVT Prophylaxis: Lovenox Pt will require continued inpatient hospitalization for persistent abdominal discomfort and heartburn need GI evaluation Time Spent With Patient Time: Total time managing care of this patient today ____ minutes. Quality Stroke Does the patient have a stroke diagnosis?: No VTE Prior VTE?: No VTE Risk Level:: Medical - moderate - high VTE Device Contraindication: N/A - Device Ordered VTE Drug Contraindication: Treatment Not Indicated
[2023-01-15] MEDS: lisinopriL 5 MG TABLET PO (13:13)
[2023-01-15] MEDS: levoFLOXacin/D5W 750 MG/150 ML PIGGYBACK 100 MG IV (14:42)
--- NOTE | 2023-01-15 14:48 | P.EN_ITS ---
Event Note Date of Service: 01/15/23 Event Note: GI Consult-Full note dictated Imp: Acute onset of N/V and abdominal cramps. He denies any associated bleeding nor preceding UGI symptoms such as GERD or dysphagia. He denies diarrhea. He denies odynophagia. He presently feels much better with no vomiting since yes terday. He tolerated his liquids today. His abdominal exam is benign. This seems very c/w a transient gastroenteritis that is resolving. I don't think the CT changes of the esophagus are worrisome. I suspect they are c/w inflammation due to the vomiting. Rec: Advance diet as tolerated. PPI Rx for 1 or 2 months. He is scheduled for a screening colonoscopy with me later this Spring and I will add an upper endoscopy at that time as well. I told him to call me before that if he has problems. He is comfortable with that plan. Thanks Time Spent With Patient Time: Total time managing care of this patient today ____ minutes.
[2023-01-15 16:00] VITALS: BP 160/70; PULSE 73; RESP 16; TEMP 36.4; O2SAT 99
[2023-01-15 16:30] LABS: Glucose, Whole Blood 175 mg/dL (60-115)
[2023-01-15 19:47] VITALS: BP 133/68; PULSE 72; RESP 16; TEMP 36.2; O2SAT 99
[2023-01-15 20:26] LABS: Glucose, Whole Blood 220 mg/dL (60-115)
[2023-01-16] MEDS: Morphine Sulfate 4 MG/ML CARTRIDGE IVPUSH ×2 (02:50→08:35)
--- NOTE | 2023-01-16 03:22 | CONS_ITS ---
DATE OF SERVICE: 01/15/2023 REASON FOR CONSULTATION: Vomiting and abnormal CT scan of the esophagus. HISTORY OF PRESENT ILLNESS: The patient is a 47-year-old male who I actually just saw in the office last week for colorectal cancer screening and scheduling of a colonoscopy. When I saw him last week he felt well without any particular GI symptoms. He was eating comfortably and was not having any problems with abdominal pain, vomiting, no diarrhea. The patient was in his usual state of good health up until a day or two before the admission. He was feeling fine, ate normally during the day, and then after falling asleep was awakened by abdominal discomfort with cramping and vomiting. He did not notice any hematemesis nor coffee-ground emesis. He did not have any diarrhea. Due to the symptoms of feeling poorly, he came to the ER and was admitted. Since admission here, he has been gradually improving with IV fluids. He is no longer having any vomiting and has been tolerating a clear liquid diet. Prior to becoming ill, he was feeling fine without any significant heartburn, dysphagia, nor odynophagia. He enjoys a good appetite typically without any early satiety. His bowel movements have been regular without any hematochezia, constipation, melena, nor diarrhea. Presently, he denies any odynophagia. He is hungry. He has had no recent travel, ill contacts, nor antibiotic use. He does not use any chronic NSAIDs. His CT scan described some questionable wall thickening of the distal thoracic esophagus, but without any sign of mass. There were less than 10 mm paraesophageal lymph nodes in that area. Also noted was some scattered areas of mild wall thickening of the colon questioning mild colitis or changes due to underdistention of the bowel. There was no sign of any bowel obstruction, nor free air. His medications at home included vitamin D, clonazepam, clonidine, insulin, lisinopril. His medications here in the hospital include acetaminophen, vitamin D, clonidine, insulin, IV Flagyl, IV Levaquin, morphine p.r.n., Zofran p.r.n., IV pantoprazole 40 mg b.i.d. PAST MEDICAL HISTORY: Insulin dependent diabetes mellitus, on insulin pump. Anxiety, depression, PTSD, and arthritis. Previous history of substance alcohol abuse. Sinus and allergies. History of elevated LFTs. PAST SURGICAL HISTORY: Hernia repair as an infant. FAMILY HISTORY: Negative for colon cancer, but he is adopted and does not really know much in the way of his family history. SOCIAL HISTORY: He is . He works at [employer]. He is a recovering alcoholic. He also previously used IV drugs. He smokes a couple of cigarettes everyday. He is single. REVIEW OF SYSTEMS: CONSTITUTIONAL: Prior to the past 2 days, he did feel well with good energy, good appetite. SKIN: No rash. No pruritus. CARDIAC: No chest pain. PULMONARY: No coughing. No hemoptysis. GI: As above. URINARY: No dysuria. No hematuria. NEUROLOGIC: No headache or seizures. PSYCHIATRIC: Negative for any acute problems. PHYSICAL EXAMINATION: GENERAL: The patient is a pleasant, alert comfortable male, lying comfortably in bed. SKIN: Warm and dry. Nonjaundiced. Anicteric sclerae. NECK: Supple without lymphadenopathy. CHEST: Clear. CARDIAC: Normal S1 and S2. ABDOMEN: Soft and nondistended. Normal bowel sounds. Nontender without organomegaly or masses. EXTREMITIES: No edema. NEUROLOGIC: He seems to be alert and oriented. LABORATORY DATA: CT scan as above. White blood cell count was 11.0 yesterday and 8.2 today. Hemoglobin 13.5, which is down from 16.4 yesterday. Platelets 137,000. Sodium 138, potassium 3.2, chloride 101, CO2 of 23, BUN 8, creatinine 0.7, total bilirubin is 1.9, AST 67, ALT 43, alk phos 130, albumin 3.1. His total bilirubin on admission was 2.2 with direct bilirubin of only 0.8. His AST was 112 with an ALT of 64 on admission. His alk phos was 173 on admission. IMPRESSION: Given the patient's clinical history of the acute onset of these gastrointestinal symptoms and changes on the CT scan, I suspect this reflects some component of reflux esophagitis in relation to the recent vomiting. He has no preceding history of any upper gastrointestinal complaints, and therefore I doubt we had dealing with any significant problems such as Grigsby's esophagus or esophageal neoplasm. He may very well have some esophagitis based on the CT scan and the vomiting. He otherwise appears to be improving with symptomatic treatment with his IV PPI. At this point, I will continue supportive care with his PPI and clear liquid diet. I advised him that I do not think he needs an upper endoscopy given the acuity of his symptoms and the CT scan describing only inflammation. However, since he is scheduled for a screening colonoscopy later this spring with me, I advised him that I will plan to add on an upper endoscopy on the same day. I do not think this needs to be done urgently based on his clinical history. At this point, I would advance his diet and his PPI can be changed to p.o. I do not think he needs to remain on antibiotics. I would send him home with a prescription for a PPI for 1 or 2 months. I did advise him to contact me as an outpatient if he has any problems before the procedure. He was comfortable with this plan. MD ERENDIRA Fisher/SUNDAR / [id number] MTDD
[2023-01-16 03:33] VITALS: BP 136/73; PULSE 64; RESP 18; TEMP 36.2; O2SAT 98
[2023-01-16] MEDS: Pantoprazole Sodium 40 MG/10 ML VIAL IVPUSH (05:31)
[2023-01-16] MEDS: metroNIDAZOLE/NS 500 MG/100 ML PIGGYBACK 100 MG IV (05:31)
[2023-01-16 06:04] LABS: PLT CLUMP 1
[2023-01-16 06:05] LABS: Hematocrit 36.4 % (42.0-52.0); Hemoglobin 12.9 g/dl (14.0-18.0); Mean Corpuscular HGB Conc 35.4 g/dl (31.0-36.0); Mean Corpuscular Hemoglobin 35.9 pg (27.0-33.0); Mean Corpuscular Volume 101.4 fL (80.0-98.0); Mean Platelet Volume 10.7 fL (9.4-12.4); Red Blood Count 3.59 X10*6/uL (4.60-5.80); Red Cell Distribution Width 11.9 % (11.0-16.0)
[2023-01-16 06:14] LABS: Platelet Count 128 X10*3/uL (160-400); White Blood Count 6.2 X10*3/uL (4.8-10.8)
[2023-01-16 06:33] LABS: Anion Gap 12 (12-20); Blood Urea Nitrogen 5 mg/dL (9-16); Calcium 7.8 mg/dL (8.4-10.2); Carbon Dioxide 25 mmol/L (22-29); Chloride 104 mmol/L (96-108); Creatinine Clr Calc Pharmacy 129.7; Estimated Glomerular Filt Rate > 60; Glucose Random 233 mg/dL (60-115); Potassium 3.6 mmol/L (3.3-5.1); Sodium 137 mmol/L (135-145)
[2023-01-16 07:32] LABS: Glucose, Whole Blood 224 mg/dL (60-115)
[2023-01-16 07:57] VITALS: BP 129/69; PULSE 74; RESP 17; TEMP 36.4; O2SAT 99
[2023-01-16] MEDS: lisinopriL 5 MG TABLET PO (08:35)
[2023-01-16] MEDS: Cholecalciferol (Vitamin D3) 25 MCG TABLET 100 MCG PO (08:35)
[2023-01-16] MEDS: cloNIDine HCL 0.1 MG TABLET PO (08:35)
[2023-01-16] MEDS: 0.9 % Sodium Chloride Flush 3 ML SYRINGE IVFLUSH (08:44)
--- NOTE | 2023-01-16 10:25 | P.DS_ITS ---
DS: Providers Provider Date of Service: 01/16/23 Date of admission: 01/14/23 15:03 Primary care physician: Linda Carrasquillo NP Consults: 01/15/23 07:27 Consult to Gastroenterology Routine Consulting Provider: Hank Stanford Reason for consultation: esophageal thickening Has provider been notified: No DS: Diagnosis Discharge Diagnosis (1) Type 1 diabetes: Status: Acute (2) Enterocolitis: Status: Acute DS: Summary Hospital Course Hospital Course: History of presenting illness: Date of Service: 01/14/23 Attending physician on admission: Félix Dawkins Chief Complaint: Abdominal pain, vomitting Pt is a 47-year-old male with a PMH significant for?depression, Type I diabetes, substance abuse, and hx of pancreatitis in 2018 who presents to the ED with nausea, vomiting, and abdominal pain for the past two days. Pt states he had nonstop vomiting for 48 hours prior to presentation, which caused throat discomfort and burning.? Patient also had diffuse abdominal pain which he describes as hot, stabbing and rates 7/10. Has not been able to keep anything down during this time. Pt had an episode of pancreatitis in 2018 and thought this felt similar, which prompted his visit.? Patient denies fever, chills, diarrhea.? No polyuria, dysuria.? Denies chest pain/pressure, palpitations. Occasional chest discomfort with breathing depending on positioning of his head. Of note, pt has a history of IV heroin use and alcohol abuse, though currently clean and down to 1-2 drinks per week.? In the ED patient was afebrile, slightly hypertensive at 145/87. Labs were significant for slight leukocytosis of 11.0, random glucose of 158, transaminitis of bilirubin 2.2, AST 112, ALT 64, and alk-phos 173. CT?of the abdomen pelvis showed possible mild enterocolitis, question of distal esophagitis, mild diverticulosis with no evidence of diverticulitis, and question of mild diffuse bladder wall thickening. EKG demonstrated normal sinus rhythm with no evidence of ST elevations or depressions. Pt was treated with IVF, high-density drawn, famotidine, morphine, and metronidazole. Pt will be admitted to the hospital for treatment of enterocolitis with IVF, analgesics, and antibiotics. Hospital course: 47-year-old male with a PMH significant for?depression, Type I diabetes, substance abuse, and hx of pancreatitis in 2018 who presents to the ED with melany sea, vomiting, and abdominal pain for the past two days. Pt will be admitted to the hospital for treatment of enterocolitis with IVF, analgesics, and antibiotics. Mild gastroenteritis patient admitted to medical floor treated with IV fluids, analgesics, IV ppi patient responded well to above treatment had no for recurrent bout of nausea, vomiting, abdominal pain improved,burning sensation upper chest, likely due to gastritis/esophagitis improved significantly was likely due to ETOH,CT of abdomen and pelvis found wall thickening of the distal thoracic esophagus a prominent posterior mediastinal paraesophageal lymph nodes, patient evaluated by Dr. Stanford he recommend outpatient follow-up and by mouth PPI for 1-2 weeks and felt arm esophageal thickening likely due to recurrent melany sea vomiting, diet was gradually advanced since patient is tolerating regular diet he is being discharged home, recommend outpatient follow-up with Gastroenterology and primary care physician CT abdomen also showed mild enterocolitis, likely due to mild gastroenteritis no antibiotics recommended. Hypokalemia due to GI loss resolved Question of mild diffuse bladder wall thickening, UA unremarkable Transaminitis Likely due to alcohol intake strongly recommend to abstain from alcohol, repeat LFTs improved. Type I diabetes resume home medication Depression Continue clonazepam Time Spent with Patient Time attestation: Total time managing care of this patient today ____ minutes. Discharge coordination time: Greater than 30 minutes Quality: Safe Use of Opioids Does Pt have an Active Cancer Diagnosis on the Problem List?: No Quality: Stroke Does the patient have a stroke diagnosis?: No Physical Exam Vital Signs: Vital Signs: Last Vital Signs Temp 97.5 F 01/16/23 07:57 Pulse 74 01/16/23 07:57 Resp 17 01/16/23 07:57 BP 129/69 01/16/23 07:57 Pulse Ox 99 01/16/23 07:57 O2 Del Method Room Air 01/16/23 07:57 BMI result Body Mass Index 20.9 Const: Other: General awake alert x3, resting comfortably in no acute distress.? Neck supple no JVD. CVS? regular rate rhythm, Respiratory lungs clear to auscultation, no respiratory distress, no wheeze, no rhonchi. Gastrointestinal abdomen soft, nontender ,bowel sounds audible, no guarding , no rigidity. Extremities no edema. Neuro nonfocal Psych appropriate affect Skin no rash DS: Data Data Completed and Pending Labs on day of discharge: Laboratory Results - last 24 hr 01/15/23 01/15/23 01/15/23 11:19 16:06 20:19 WBC RBC Hgb Hct MCV MCH MCHC RDW Plt Count MPV Absolute Nucleated RBC Nucleated RBC % (auto) Sodium Potassium Chloride Carbon Dioxide Anion Gap BUN Creatinine Estim Creat Clear Calc Estimated GFR POC Glucose 150 H 175 H 220 H Random Glucose Calcium 01/16/23 01/16/23 01/16/23 05:18 05:18 07:14 WBC 6.2 RBC 3.59 L Hgb 12.9 L Hct 36.4 L MCV 101.4 H MCH 35.9 H MCHC 35.4 RDW 11.9 Plt Count 128 L MPV 10.7 Absolute Nucleated RBC 0.000 Nucleated RBC % (auto) 0.0 Sodium 137 Potassium 3.6 Chloride 104 Carbon Dioxide 25 Anion Gap 12 BUN 5 L Creatinine 0.67 Estim Creat Clear Calc 129.7 Estimated GFR > 60 POC Glucose 224 H Random Glucose 233 H Calcium 7.8 L Discharge Plan Discharge Anticipated Discharge Date/Time: 01/16/23 10:22 Patient Disposition: Home, Self-Care Discharge Diagnosis: Gastroenteritis Referrals: Linda Carrasquillo, [facility] [Primary Care Provider] - 1 Week Discharge Medications: New omeprazole 20 mg Capsule,Delayed Release(Dr/Ec) 20 mg PO BID@0630,1630 Qty: 60 0RF Continued (DME) insulin syringe-needle U-100 [BD Insulin Syringe] 0.3 mL 29 gauge x 1/2 syringe See Rx Instructions .ROUTE .MEDSUPPLY Qty: 150 5RF Rx Instructions: 4 times a day (DME) pen needle, diabetic [BD Felisha 2nd Gen Pen Needle] 32 gauge x 5/32 needle See Rx Instructions .ROUTE .MEDSUPPLY Qty: 50 4RF Rx Instructions: once a day (DME) Ketostix Strip See Rx Instructions .Route Qty: 50 6RF Rx Instructions: As directed insulin lispro [Humalog U-100 Insulin] 100 unit/mL solution 100 unit subcut DAILY 30 Days Qty: 30 6RF Rx Instructions: VIA PUMP (DME) 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 meter [FreeStyle Lite Meter] Kit See Rx Instructions .Route Qty: 1 0RF Rx Instructions: As directed-checks 4 X/day (DME) FreeStyle Lite Strips Strip See Rx Instructions .ROUTE .MEDSUPPLY Qty: 300 11RF Rx Instructions: 6x daily clonidine HCl 0.1 mg tablet 1 tab PO DAILY cholecalciferol (vitamin D3) 50 mcg (2,000 unit) capsule 100 mcg PO DAILY clonazepam 0.5 mg tablet 0.5 mg PO BID PRN (Reason: Anxiety) lisinopril 5 mg tablet 5 mg PO DAILY Discharge Orders: Discharge Order (Routine); Ordered 01/16/23 Ordered By: Félix Dawkins Diet: Diabetic diet Activity on Discharge: As tolerated Stand Alone Forms: Patient Portal Discharge page Care Plan Goals: Mild gastroenteritis resolved Take Prilosec 1 tablet twice daily for 2 months Strongly recommend to abstain from alcohol Health Concerns: Diabetes mellitus, follow diabetic diet and take medications as before Plan of Treatment: Outpatient follow-up with primary care physician call for appointment and with mountain bike guide Dr. Stanford Assessment: As above
--- NOTE | 2023-01-16 11:10 | MHC.CM.PN ---
Patient is discharged to home tody self care. Patient has arranged for his mother to provide transport home.
== END 2023-01-16 12:00 | disposition home or self-care (01) | DRG 249 ==
LOC: HO.ED 13:31 → HO.EDOVER 15:13 → HO.S3 15:19
PROVIDERS: Physician Assistant; Admitting Provider Student in an Organized Health Care Education/Training Program; Emergency Provider Emergency Medicine Emergency Medical Services; PCP Nurse Practitioner Family; Visit Provider Hospitalist
DX: K52.9 Noninfective gastroenteritis and colitis, unspecified (principal); E87.6 Hypokalemia; F11.21 Opioid dependence, in remission; K20.90 Esophagitis, unspecified without bleeding; F17.210 Nicotine dependence, cigarettes, uncomplicated; F32.A Depression, unspecified; I10 Essential (primary) hypertension; Z71.6 Tobacco abuse counseling; Z96.41 Presence of insulin pump (external) (internal); Z20.822 Contact with and (suspected) exposure to COVID-19; Z79.899 Other long term (current) drug therapy
CPT/HCPCS: 36415; 74177; 80048; 80053; 80076; 81001; 82009; 82077; 82947; 83690; 83735; 85025; 85027; 87635; 93005; 99285; J1956; J2270; J2405; Q9967

== ENCOUNTER → 2023-02-19 08:19 | Outpatient (BNVA) | payer OTHER, SELFPAY | PROVIDERS: PCP Nurse Practitioner Family; Visit Provider Internal Medicine Endocrinology, Diabetes & Metabolism | DX: E10.65 Type 1 diabetes mellitus with hyperglycemia (principal); Z96.41 Presence of insulin pump (external) (internal) | CPT/HCPCS: 82947; 83036; 99212 ==

== ENCOUNTER → 2023-02-26 09:57 | Outpatient (BNVA) | payer OTHER, SELFPAY | PROVIDERS: PCP Nurse Practitioner Family; Visit Provider Registered Nurse Diabetes Educator | DX: Z46.81 Encounter for fitting and adjustment of insulin pump (principal); E10.65 Type 1 diabetes mellitus with hyperglycemia | CPT/HCPCS: 99211 ==

== ENCOUNTER 2023-03-16 07:42 | Day surgery (SDC) | payer MEDICAID, SELFPAY ==
--- NOTE | 2023-03-13 13:17 | HO.ANESPROP2 ---
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 Mother No problems noted. Surgical History Surgical History Hx of hernia repair Social History Social History Household Members: Family Household Members Other:: mother Housing: House Do you presently have visiting nurse or other home services: No Alcohol intake: former Patient Tobacco Use Status: Current everyday Tobacco user Tobacco use type: Cigarette Cigarettes Per Day: 2 Substance Use Type: Marijuana Substance Use Frequency: Daily Are you DNR?: No Advance Directives: No Advance Directives Information Provided: Yes Advance Directives Date on File: 08/29/20 service: No Current occupational status: unemployed Meds Allergies Allergy/AdvReac Type Severity Reaction Status Date / Time hydroxyzine [From VISTARIL] Allergy Intermediate RASH, Verified 02/19/23 08:28 ANXIOUS quetiapine [Seroquel] Allergy Unknown Unknown Verified 02/19/23 08:28 Home Medications Medication Instructions Recorded Confirmed Last Taken Type clonazepam 0.5 mg tablet 0.5 mg PO BID PRN Anxiety 07/16/21 01/14/23 Unknown History cholecalciferol (vitamin D3) 50 100 mcg PO DAILY 08/10/21 01/14/23 Unknown History mcg (2,000 unit) capsule clonidine HCl 0.1 mg tablet 1 tab PO DAILY 08/10/21 01/14/23 Unknown History lisinopril 5 mg tablet 5 mg PO DAILY 10/30/22 01/14/23 Unknown History fluticasone 250 mcg-salmeterol 50 1 ea inhalation BID 02/19/23 Unknown History mcg/dose blistr powdr for inhalation (Advair Diskus) fluticasone propionate 50 1 spray intranasal DAILY 02/19/23 Unknown History mcg/actuation nasal spray,suspension Exam Exam Date and Time: March 13, 2023 1317 Pertinent Lab Results Pertinent Lab Results: Laboratory Tests 01/16/23 01/16/23 05:18 05:18 WBC 6.2 Hgb 12.9 L Hct 36.4 L Plt Count 128 L Sodium 137 Potassium 3.6 Chloride 104 Carbon Dioxide 25 BUN 5 L Creatinine 0.67 Narrative Narrative: EKG 01/2023 Vent. Rate : 066 BPM ? ? Atrial Rate : 066 BPM ?? P-R Int : 128 ms? QRS Dur : 094 ms ? ? QT Int : 450 ms ? ? ? P-R-T Axes : 014 079 059 degrees ?? QTc Int : 471 ms ? Normal sinus rhythm Normal ECG When compared with ECG of 06-MAY-2022 21:26, No significant change was found ? Assessment and Plan Assessment Anesthesia Assessment: Chart Reviewed Documented by User: Diana Barajas MD 03/16/23 10:02 [facility] Past Medical History Medical History Depression Diabetes Diabetes type 1, uncontrolled History of drug abuse Hypoglycemia unawareness associated with type 1 diabetes mellitus Type 1 diabetes Vitamin D deficiency Family History Family History Father No problems noted. Mother No problems noted. Family history of problems with anesthesia: No Surgical History Surgical History Hx of hernia repair History of Problems with Anesthesia: No Social History Social History Household Members: Family Household Members Other:: mother Housing: House Do you presently have visiting nurse or other home services: No Alcohol intake: former Patient Tobacco Use Status: Current everyday Tobacco user Tobacco use type: Cigarette Cigarettes Per Day: 2 Substance Use Type: Marijuana Substance Use Frequency: Daily Are you DNR?: No Advance Directives: No Advance Directives Information Provided: Yes Advance Directives Date on File: 08/29/20 service: No Current occupational status: unemployed Meds Allergies Allergy/AdvReac Type Severity Reaction Status Date / Time hydroxyzine [From VISTARIL] Allergy Intermediate RASH, Verified 02/19/23 08:28 ANXIOUS quetiapine [Seroquel] Allergy Unknown Unknown Verified 02/19/23 08:28 Home Medications Medication Instructions Recorded Confirmed Last Taken Type clonazepam 0.5 mg tablet 0.5 mg PO BID PRN Anxiety 07/16/21 01/14/23 Unknown History cholecalciferol (vitamin D3) 50 100 mcg PO DAILY 08/10/21 01/14/23 Unknown History mcg (2,000 unit) capsule clonidine HCl 0.1 mg tablet 1 tab PO DAILY 08/10/21 01/14/23 Unknown History lisinopril 5 mg tablet 5 mg PO DAILY 10/30/22 01/14/23 Unknown History fluticasone 250 mcg-salmeterol 50 1 ea inhalation BID 02/19/23 Unknown History mcg/dose blistr powdr for inhalation (Advair Diskus) fluticasone propionate 50 1 spray intranasal DAILY 02/19/23 Unknown History mcg/actuation nasal spray,suspension Exam Airway Mallampati Class: I TM Dist: >3cm Neck ROM: Full Denture: Upper Partial: Lower Loose/Missing/Broken Teeth: Yes (missinf front lower partial) Heart: rr Lungs: cta Assessment and Plan Assessment Anesthesia Assessment: Anesthesia Plan Discussed Final Anesthetic Review Family History of Problems with Anesthesia: No History of Problems with Anesthesia: No NPO: Yes ASA Class: II Final Preanesthetic Review: No Changes in Pt Med Stat, Meds/Allgs Chart Reviewed, Consent Obtained/Reviewed and Anes Risks/Benef Reviewed Patient Risk: Low Procedure Risk: Low Anesthetic Plan Anesthetic Plan: MAC: and Agree w/ Assess. and Plan Disposition: Standard PACU
[2023-03-16 07:58] VITALS: BMI 21.5
[2023-03-16] MEDS: Lactated Ringers 1,000 ML 100 ML IVCONT (08:09)
[2023-03-16 08:11] LABS: Glucose, Whole Blood 99 mg/dL (60-115)
[2023-03-16 08:19] VITALS: BP 133/71; PULSE 70; RESP 18; TEMP 36.6; O2SAT 100
--- NOTE | 2023-03-16 10:19 | PM.OP ---
Brief Operative Note Date of Service: 03/16/23 Pre-op diagnosis: GERD, Screening Post-op diagnosis: other (Erosive esophagitis, Colon polyps) Procedure: EGD with biopsies, Colonoscopy to the cecum with hot snare polypectomy x 2 and placement of 1 Resolution clip Surgeon: Hank Stanford Anesthesia: MAC Was an Mental [employer] Teacher used for this Procedure?: No Estimated blood loss (mL): 2.0 Pathology: other (A. Gastric antrum B. EG Junction at 35cm C. Esophagus 30-35cm D. Polyps at 20cm) Condition: stable Disposition: PACU
[2023-03-16 10:20] VITALS: BP 125/74; PULSE 74; RESP 18; TEMP 37; O2SAT 100
[2023-03-16 10:35] VITALS: BP 141/80; PULSE 63; RESP 18; TEMP 36.9; O2SAT 99
--- NOTE | 2023-03-16 11:09 | OP_ITS ---
DATE OF SERVICE: 03/16/2023 SURGEON: Hank Stanford MD INDICATIONS: The patient presents for evaluation of previous abnormal CT scan of esophagus and colorectal cancer screening. Full consent obtained from him for both procedures, including risks of bleeding and perforation. PREOPERATIVE DIAGNOSIS: Abnormal CT scan of the esophagus and colorectal cancer screening. POSTOPERATIVE DIAGNOSIS: Abnormal CT scan of the esophagus, colorectal cancer screening, erosive esophagitis, hiatal hernia, gastritis, colon polyps, diverticulosis, and internal hemorrhoids. PROCEDURE PERFORMED: Esophagogastroduodenoscopy with biopsies and colonoscopy to the cecum with hot snare polypectomy. ESTIMATED BLOOD LOSS: COMPLICATIONS: ANESTHESIA: Monitored anesthesia care. ASSISTANTS: SPECIMENS: DESCRIPTION OF PROCEDURE: The patient was placed in the left lateral decubitus position. The Olympus video gastroscope was passed into the posterior oropharynx and upper esophagus under direct vision. The scope was passed slowly to the distal esophagus. The gastroesophageal junction appeared at 35 cm. This area was notable for some esophagitis with erythema, edema, friability, and possibly small areas of Grigsby's mucosa. Extending from this to 30 cm were areas of erosive esophagitis as well. There was no mass. There were no varices. The scope was advanced into the stomach. There was a small hiatal hernia. The scope was advanced to pylorus and the duodenum was cannulated to the descending portion. The duodenum including the bulb appeared normal without mass or ulceration. The scope was withdrawn back to the stomach. The gastric antrum and body was notable for some edema, erythema, and some friability. There were no erosions or ulceration. There was good peristalsis. The scope was retroflexed visualizing the proximal stomach carefully which appeared normal, without any sign of mass, ulceration, nor varices. The scope was straightened. Biopsies were obtained from the gastric antrum. The scope was withdrawn back to the esophagus. Biopsies were obtained at the EG junction at 35 cm. I then obtained biopsies between 30 and 35 cm in the area of erosive esophagitis. Proximal to 30 cm, the esophageal mucosa appeared normal. The scope was withdrawn from the patient. He was turned around for the colonoscopy. The digital rectal exam revealed no abnormalities. The Olympus video pediatric colonoscope was entered into the rectum and advanced easily to the cecum. Once in the cecum I did identify normal-appearing cecal pouch with appendiceal orifice and a normal-appearing ileocecal valve. The entire cecum and ileocecal valve appeared normal. There was transillumination of light deep in the right lower quadrant. The scope was slowly withdrawn assessing all mucosal surfaces carefully. Preparation was very good after a lot of irrigation and suctioning. At 20 cm were 2 polyps. One was approximately 1.2 cm in size and removed by hot snare polypectomy and then recovered by withdrawing it on the tip of the scope. The scope was advanced back to the polypectomy site which appeared clean, without any sign of residual polyp nor bleeding. In the same area was an approximately 8 mm polyp, which was removed by hot snare polypectomy and recovered by suction. There was some oozing from the site, which resolved with cautery from the tip of the snare, but I also applied a single resolution clip with good deployment and good hemostasis. I did not visualize any other polyps, colitis, or angiodysplasia. There was a mild amount of sigmoid diverticulosis. In the rectum, scope was retroflexed visualizing internal hemorrhoids, but no other pathology. The rectal mucosa appeared normal. The scope was straightened and withdrawn from the patient. He tolerated the procedures well and was returned to the recovery area in stable condition. IMPRESSION: 1. Erosive esophagitis, hiatal hernia, gastroesophageal reflux. 2. Gastritis. 3. Colon polyps. 4. Diverticulosis. 5. Internal hemorrhoids. PLAN: The results of the pathology will be checked. If the colon polyps are tubular adenoma, I would recommend a followup coloscopy in 5 years. If they are only hyperplastic or inflammatory, I would recommend a followup colonoscopy in 10 years. He will start omeprazole 40 mg daily and I have given him a prescription for that. I would recommend he stay on that long-term given today's findings. He was advised to see me in the Fall for a followup visit as well. He was advised not to use any aspirin, NSAIDs, nor alcohol on a long-term basis. MD ERENDIRA Fisher/SUNDAR / [id number] ANTONIO
== END 2023-03-16 11:13 | disposition home or self-care (01) ==
PROVIDERS: PCP Nurse Practitioner Family; Visit Provider Internal Medicine
PROC: (CPT 45385; principal; 2023-03-16 08:40)
DX: Z12.11 Encounter for screening for malignant neoplasm of colon (principal); K63.5 Polyp of colon; K57.30 Diverticulosis of large intestine without perforation or abscess without bleeding; K64.8 Other hemorrhoids; R93.3 Abnormal findings on diagnostic imaging of other parts of digestive tract; K29.50 Unspecified chronic gastritis without bleeding; K20.80 Other esophagitis without bleeding; K44.9 Diaphragmatic hernia without obstruction or gangrene; R79.89 Other specified abnormal findings of blood chemistry; F41.8 Other specified anxiety disorders; F43.10 Post-traumatic stress disorder, unspecified; M19.90 Unspecified osteoarthritis, unspecified site; E10.649 Type 1 diabetes mellitus with hypoglycemia without coma; Z79.4 Long term (current) use of insulin; Z79.899 Other long term (current) drug therapy; F17.210 Nicotine dependence, cigarettes, uncomplicated; F19.11 Other psychoactive substance abuse, in remission; F10.11 Alcohol abuse, in remission
CPT/HCPCS: 45385; 43239; 82947; 88305; 88342

== ENCOUNTER 2023-05-27 08:37 | Outpatient (AMB) | payer MEDICAID, SELFPAY ==
--- NOTE | 2023-05-27 08:39 | A.OFFVIS_ITS ---
Intake Vital Signs 05/27/23 08:44 Height 5 ft 11 in Weight 152 lb 5.431 oz BMI 21.2 BP 128/80 Blood Pressure Location Lt brachial Position Sitting Pulse 96 Pulse Source Pulse Oximeter Intake Visit Reasons: F/Up T1DM with pump and sensor Intake Note: Patient present today to follow up on Type 1 Diabetes Mellitus. Patient receives DME supplies through: [facility] Diabetic Eye exam: 11/14/22 Last Precision Assembly Inspector visit: Does not see a Precision Assembly Inspector Random Glucose: 163 mg/dl HgA1C: 5.8% Shipboard Intelligence Analyst Required: No Accompanied by: Self / Same As Patient Allergies hydroxyzine [From VISTARIL] Allergy (Intermediate, Verified 05/27/23 08:43) RASH, ANXIOUS quetiapine [Seroquel] Allergy (Unknown, Verified 05/27/23 08:43) Unknown Medication List - Last Reconciled 05/27/23 by Hank Palmer MD acetone (urine) test (Ketostix strips) As directed blood sugar diagnostic (FreeStyle Lite Strips) 4x daily 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 meter (FreeStyle Lite Meter kit) As directed-checks 4 X/day cholecalciferol (vitamin D3) 100 mcg PO DAILY clonazepam 0.5 mg PO BID PRN clonidine HCl 1 tab PO DAILY fluticasone propion-salmeterol 250-50 mcg/dose (Advair Diskus) 1 ea inhalation BID fluticasone propionate 50 mcg/actuation 1 spray intranasal DAILY Humalog U-100 Insulin (insulin lispro) 100 units subcut DAILY NS insulin syringe-needle U-100 (BD Insulin Syringe) 4 times a day lancets (FreeStyle Lancets) As directed 4 X/day lisinopril 5 mg PO DAILY omeprazole 20 mg PO BID@0630,1630 pen needle, diabetic (BD Felisha 2nd Gen Pen Needle) once a day HPI HPI Comments History of Present Illness Details Patient is a 47 year old male with DM type 1 diagnosed at age 32 who presents for management of diabetes.. 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 . Today patient reports he is feeling well. Average glucose for the past 2 weeks 130 mg/dL Patient above target 10% Patient below target 6% Patient at target 84% Control IQ was use 95% of the time total daily dose is 19.97. Basal 65% of the time, bolus 18% of time, correction bolus of 6% time in control IQ bolus of 12% Hypoglycemia is occurring predominantly late night and overnight Basal rate(s) (units/hour) : 12 AM? to 6 AM? 0.5 units / hr 6 AM to 12 PM ? 0.6 units / hr 12 PM? to 6 PM? 0.775 units / hr 6 PM to 12 AM ? 0.6 units / hr Bolus setting Insulin Carbohydrate Ratio (s)\ 12 AM to 12 PM 1:14?New 6 AM- 12 PM 1:11 12 PM to 6 PM 1:10 6 PM? to 12 AM? 1:14 Correction Factor / Sensitivity Factor 12 AM? to 12 AM? 1:55 Active Insulin Time:? 3 hours Target(s): Control IQ 12 AM? to 12 AM? 110 mg/dL When not in control IQ 12 AM? to 12 AM? 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 [facility] Precision Assembly Inspector: denies Dental exam: week ago, goes every 6 months Ophthalmology evaluation: couple of mos ago denies retinopathy Other specialists: none Laboratory Tests 03/18/21 07/16/21 08/10/21 09:50 10:14 06:14 Creatinine 0.72 Estimated GFR > 60 Fasting Glucose 199 H Hgb A1c (Clinic) 5.9 C-Peptide 08/10/21 06:14 Creatinine Estimated GFR Fasting Glucose Hgb A1c (Clinic) C-Peptide < 0.10 L 03/18/21 03/18/21 03/18/21 09:50 09:50 09:50 Creatinine 1.06 Estimated GFR > 60 Hgb A1c (Clinic) Triglycerides 130 Cholesterol 169 LDL Cholesterol Di rect 32 LDL Cholesterol, C alc 25 HDL Cholesterol 118 25-OH Vitamin D To ness 15.6 TSH 0.76 Free T4 1.07 Microalb/Creat Rat io 4.9 03/18/21 15:28 Creatinine Estimated GFR Hgb A1c (Clinic) 5.9 Triglycerides Cholesterol LDL Cholesterol Di rect LDL Cholesterol, C alc HDL Cholesterol 25-OH Vitamin D To ness TSH Free T4 Microalb/Creat Rat io PFSH Medical History Depression Diabetes Diabetes type 1, uncontrolled History of drug abuse Hypoglycemia unawareness associated with type 1 diabetes mellitus Type 1 diabetes Vitamin D deficiency Surgical History Hx of hernia repair Family History Father No problems noted. Mother No problems noted. Social History Household Members: Family Household Members Other:: mother Housing: House Do you presently have visiting nurse or other home services: No Alcohol intake: former Patient Tobacco Use Status: Current everyday Tobacco user Tobacco use type: Cigarette Cigarettes Per Day: 2 Substance Use Type: Marijuana Advance Directives Date on File: 08/29/20 service: No Current occupational status: unemployed Physical Exam Vital Signs: Last Vital Signs Pulse 96 05/27/23 08:44 BP 128/80 05/27/23 08:44 BMI result Body Mass Index 21.2 Absence of Cushingoid features. Absence of acromegalic features. Neck exam reveals nl size thyroid about 15 gms. No thyroid nodules palpable. No carotid bruits present. Lungs CTA. Heart S1 S2, Reg R/R. No M/R/ G. Skin exam reveals absence of vitiligo or acanthosis nigricans. Abdominal exam reveals Soft NT/ND with NA BS. No organomegaly present. Extrem Other: Visual exam of foot performed. No ulcerations or open lesions. No onchomycosis, no callouses.Pulses 2 + distally. Sensation intact to monofilament exam. Vibratory sensation sensed 10 seconds in right, 10 seconds in left with 128 Hz tuning fork Results AMB Hemoglobin A1c AMB Hemoglobin A1c 5.8 % Last Edit by Kizzy Trent on 05/27/23 09:03 Results Reviewed Results Reviewed: 05/27/23 08:48 Glucose, Whole Blood Routine Laboratory Last Values Glucose (Clinic) 163 mg/dL (60-115) H 05/27/23 08:48 Assessment & Plan Assessment & Plan (1) Diabetes type 1, uncontrolled: Code(s): E10.65 - Type 1 diabetes mellitus with hyperglycemia Plan: This is a 47-year-old white male with a history of type 1 diabetes with good glycemic control on T-Slim X2 insulin pump with no known microvascularor macrovascular complications. He has excellent glycemic control Plan is to decrease the basal overnight at midnight to 0.4 units per hour. Would also loosen insulin: Carbohydrate at 18:00 to 01:15.. Prescribed glucagon rescue Baqimi. Will check basic metabolic panel, lipid profile and microalbumin to creatinine ratio Will follow up with healthcare educator Orders: Orders AMB Hemoglobin A1c Today E10.65 - Type 1 diabetes mellitus with hyperglycemia Basic Metabolic Panel Today E10.65 - Type 1 diabetes mellitus with hyperglycemia Lipid Panel Today E10.65 - Type 1 diabetes mellitus with hyperglycemia Microalbumin, Random (w Creat) Today E10.65 - Type 1 diabetes mellitus with hyperglycemia Medications: New glucagon 3 mg/actuation (Baqsimi) 3 mg intranasal ONCE 2 ea 5RF Coding Level of Care Code Est Pt Level 4 (01255) Diagnoses Diabetes type 1, uncontrolled E10.65
[2023-05-27 08:44] VITALS: BP 128/80; PULSE 96; BMI 21.2
[2023-05-27 08:53] LABS: Glucose, Whole Blood 163 mg/dL (60-115)
== END 2023-05-27 09:05 | disposition home or self-care (01) ==
PROVIDERS: PCP Nurse Practitioner Family; Visit Provider Internal Medicine Endocrinology, Diabetes & Metabolism
DX: E10.65 Type 1 diabetes mellitus with hyperglycemia (principal)
CPT/HCPCS: 99214

== ENCOUNTER → 2023-05-27 08:37 | Outpatient (BNVA) | payer MEDICAID, SELFPAY | PROVIDERS: Visit Provider Internal Medicine Endocrinology, Diabetes & Metabolism | DX: Z46.81 Encounter for fitting and adjustment of insulin pump (principal); E10.65 Type 1 diabetes mellitus with hyperglycemia; Z79.4 Long term (current) use of insulin | CPT/HCPCS: 82947; 83036; 99212 ==

== ENCOUNTER 2023-06-20 10:14 | Emergency (ER) | payer MEDICAID, SELFPAY ==
--- NOTE | ~2023-06-20 | CT_ITS ---
EXAMINATION: CT ABDOMEN AND PELVIS WITHOUT CONTRAST CLINICAL INFORMATION: Left-sided abdominal pain, nausea, vomiting COMPARISON: CT abdomen pelvis 01/14/2023 TECHNIQUE: Multidetector volumetric imaging was performed from the superior aspect of the liver through the pubic symphysis. Sagittal and coronal reformatted images were obtained on the technologist's workstation. This CT examination was performed using dose optimization techniques as appropriate, variously including the following: *Automated exposure control *Adjustment of mA and/or kV according to patient size (this includes techniques or standardized protocols for targeted exams where dose is matched to indication/reason for exam; i.e. extremities or head) *Use of iterative reconstruction technique DLP: 359 mGy-cm FINDINGS: LUNG BASES: Unremarkable. ABDOMINAL AND PELVIC WALL: Unremarkable. LIVER AND BILIARY TREE: Hypoattenuating hepatic parenchyma compatible with hepatic steatosis with heterogeneous regions of focal fatty sparing. Liver is enlarged measuring 19.4 cm in span. The liver previously measured 19.2 cm in span. GALLBLADDER: Unremarkable. PANCREAS: Unremarkable. SPLEEN: Unremarkable. ADRENAL GLANDS: Unremarkable. KIDNEYS AND URETERS: Punctate nonobstructing left renal stones. No hydronephrosis or obstructive ureterolithiasis. GASTROINTESTINAL TRACT: Large and small bowel are unremarkable. Normal appendix. VASCULAR: Unremarkable. LYMPH NODES/PERITONEUM: Prominent gastrohepatic and florecita hepatic nodes not significantly changed from prior for example a 0.9 cm short axis gastrohepatic node, 3:15 previously measured 0.9 cm, possibly reactive given the background of underlying liver disease. FREE FLUID: None. BLADDER: Urinary bladder appears mildly thick-walled relative to degree of underdistention, recommend correlation with urinalysis and symptoms of cystitis. PELVIC VISCERA: Unremarkable. OSSEOUS STRUCTURES: Mild degenerative changes of the hips. Minimal wedge compression deformity of the T11 vertebral body unchanged from prior. CT/CT abdomen pelvis wo IV con IMPRESSION: 1. Punctate nonobstructing left renal stones. No hydronephrosis or obstructive ureterolithiasis. 2. Urinary bladder appears mildly thick-walled relative to degree of underdistention, recommend correlation with urinalysis and symptoms of cystitis. 3. Hepatomegaly and hepatic steatosis with heterogeneous regions of focal fatty sparing.
[2023-06-20 10:17] VITALS: BP 149/82; PULSE 97; RESP 18; TEMP 37.1; O2SAT 98; BMI 21.6
[2023-06-20 10:38] LABS: MANUAL DIFF FLAG NO
[2023-06-20 10:39] LABS: Basophils Percent Auto 0.3 % (0-2); Eosinophils Percent Auto 0.1 % (0-4); Hematocrit 45.4 % (42.0-52.0); Hemoglobin 16.1 g/dl (14.0-18.0); Imm Gran Abs Auto 0.04 X10*3/uL (0.00-0.03); Imm Gran Pct Auto 0.3 % (0.0-0.4); Lymphocytes Absolute Auto 1.3 X10*3/uL (1.2-4.9); Lymphocytes Percent Auto 10.8 % (20-40); Mean Corpuscular HGB Conc 35.5 g/dl (31.0-36.0); Mean Corpuscular Hemoglobin 36.3 pg (27.0-33.0); Mean Corpuscular Volume 102.5 fL (80.0-98.0); Monocytes Percent Auto 8.7 % (2-11); Neutrophils Absolute Auto 9.5 x10*3/uL (2.0-8.3); Neutrophils Percent Auto 79.8 % (45-73); Platelet Count 170 X10*3/uL (160-400); Red Blood Count 4.43 X10*6/uL (4.60-5.80); Red Cell Distribution Width 12.5 % (11.0-16.0); White Blood Count 11.9 X10*3/uL (4.8-10.8)
[2023-06-20 11:10] LABS: Alanine Aminotransferase 64 U/L (0-40); Albumin Level 3.3 g/dL (3.5-5.0); Alkaline Phosphatase 166 U/L (39-117); Anion Gap 17 (12-20); Aspartate Amino Transferase 135 U/L (5-37); Bilirubin Direct 0.7 mg/dL (0.0-0.5); Bilirubin Total 1.5 mg/dL (0.0-1.0); Blood Urea Nitrogen 13 mg/dL (9-16); Calcium 8.7 mg/dL (8.4-10.2); Carbon Dioxide 36 mmol/L (22-29); Chloride 92 mmol/L (96-108); Creatinine Clr Calc Pharmacy 105.6; Estimated Glomerular Filt Rate > 60; Glucose Random 153 mg/dL (60-115); Lipase 8 U/L (8-78); Potassium 3.9 mmol/L (3.3-5.1); Sodium 141 mmol/L (135-145)
[2023-06-20 11:13] LABS: IDNOW Serial# 9DB6401D
[2023-06-20 11:14] LABS: Influenza A Negative (Negative); Influenza B2 Negative (Negative)
[2023-06-20 11:15] LABS: COVID-19 Test Negative (Negative); IDNOW Serial# 55D5AD1C
--- NOTE | 2023-06-20 12:26 | ED.NAVMDI ---
HPI - Nausea/Vomiting/Diarrhea General Chief complaint: Nausea/Vomiting/Diarrhea Stated complaint: Vomiting, Chills x 2 Time Seen by Provider: 06/20/23 12:23 Source: patient Mode of arrival: ambulatory Limitations: no limitations History of Present Illness HPI Narrative: 47-year-old male with a PMHx of depression, diabetes, hypoglycemia, substance abuse, hernia s/p repair, pancreatitis, colitis presents to the ED complaining of abdominal pain, N/V, diarrhea & chills x2 days. Abdominal pain is localized to the left abdomen, increased with eating. He reports poor p.o. intake. Nothing seems to relieve his symptoms. Diagnosed with enteric colitis 7 months ago, follows with GI, regularly takes omeprazole however has been vomiting this up. Last bowel movement this morning, loose stool. Endorses hernia repair during infancy, otherwise no abdominal surgeries. Recent travel or antibiotic use. Denies alcohol use. Endorses daily marijuana use, denies other illicit drug use. Denies headache, fever, sore throat, chest pain, shortness of breath, rashes, hematemesis, hematochezia, melena, dysuria, hematuria. Related Data Home Medications Medication Instructions Recorded Confirmed clonazepam 0.5 mg tablet 0.5 mg PO BID PRN Anxiety 07/16/21 05/27/23 cholecalciferol (vitamin D3) 50 100 mcg PO DAILY 08/10/21 05/27/23 mcg (2,000 unit) capsule clonidine HCl 0.1 mg tablet 1 tab PO DAILY 08/10/21 05/27/23 lisinopril 5 mg tablet 5 mg PO DAILY 10/30/22 05/27/23 fluticasone 250 mcg-salmeterol 50 1 ea inhalation BID 02/19/23 05/27/23 mcg/dose blistr powdr for inhalation (Advair Diskus) fluticasone propionate 50 1 spray intranasal DAILY 02/19/23 05/27/23 mcg/actuation nasal spray,suspension Previous Rx's Medication Instructions Recorded insulin syringe-needle U-100 0.3 #150 ea 08/29/20 mL 29 gauge x 1/2 (BD Insulin Syringe) pen needle, diabetic 32 gauge x #50 ea 08/29/20 5/32 (BD Felisha 2nd Gen Pen Needle) acetone (urine) test (Ketostix #50 ea 12/28/21 strips) 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 meter (FreeStyle #1 ea 10/22/22 Lite Meter kit) omeprazole 20 mg capsule,delayed 20 mg PO BID@0630,1630 #60 caps 01/16/23 release blood sugar diagnostic (FreeStyle #300 ea 02/19/23 Lite Strips) lancets 28 gauge (FreeStyle #100 ea 02/19/23 Lancets) Humalog U-100 Insulin 100 unit/mL 100 unit subcut DAILY #30 mL 04/24/23 subcutaneous solution (insulin lispro) glucagon 3 mg/actuation nasal 3 mg intranasal ONCE #2 ea 05/27/23 spray (Baqsimi) ondansetron 4 mg disintegrating 4 mg PO DAILY PRN nausea and 06/20/23 tablet vomiting 5 days #10 tabs Allergies Allergy/AdvReac Type Severity Reaction Status Date / Time hydroxyzine [From VISTARIL] Allergy Intermediate RASH, Verified 06/20/23 10:17 ANXIOUS quetiapine [Seroquel] Allergy Unknown Unknown Verified 06/20/23 10:17 Review of Systems Review of Systems: Constitutional: No fever, + chills, No fatigue, No malaise, No weight loss, No night sweats ENT/Mouth: No ear pain, No hearing loss,? No nasal congestion, No sinus pain, No rhinorrhea Eyes: No eye pain, No swelling, No redness, No vision changes, No foreign body, No discharge Cardio: No chest pain, No palpitations, No dyspnea on exertion, No orthopnea, No edema Respiratory: No SOB, No cough, No sputum, No wheezing, No dyspnea, No hemoptysis, No smoke exposure GI: + nausea, + vomiting, No hematemesis, + abdominal pain, + diarrhea, No constipation, No hematochezia, No melena : No irregular bleeding, No dysuria, No frequency, No urgency, No hesitancy, No hematuria, No flank pain MSK: No back pain, No neck pain, No joint pain, No myalgias Skin: No skin lesions, No rashes Neuro: No weakness, No numbness, No paresthesias, No LOC, No dizziness, No headache Psych: No anxiety/panic, No depression, No SI/HI, No AH/VH Yes all other systems are reviewed and are negative [facility], [facility] Past Medical History Attestation statement: The following information was validated with the patient. 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 Mother No problems noted. Social History Social History Household Members: Family Household Members Other:: mother Housing: House Do you presently have visiting nurse or other home services: No Alcohol intake: former Patient Tobacco Use Status: Current everyday Tobacco user Tobacco use type: Cigarette Cigarettes Per Day: 2 Smoked in Last 30 Days: Yes Use of substances other than those prescribed or required for medical reasons: Yes Substance Use Type: Marijuana Last Used Substance: Hours (ago) Advance Directives: Yes Advance Directives on File: Yes Advance Directives Date on File: 08/29/20 service: No Current occupational status: unemployed Physical Exam Vital Signs: Vital Signs: Last Vital Signs Temp 98.8 F 06/20/23 10:17 Pulse 73 06/20/23 14:38 Resp 16 06/20/23 14:38 BP 156/86 H 06/20/23 14:38 Pulse Ox 96 06/20/23 14:38 O2 Del Method Room Air 06/20/23 14:38 BMI result Body Mass Index 21.6 Vital signs stable, afebrile. General: Nontoxic appearing. NAD. Skin: Warm and dry. No rashes or lesions. Head: Normocephalic, atraumatic. EENT: Conjunctiva clear. Sclera is anicteric. PERRLA. EOM intact. Moist mucous membranes. Controlling secretions. Neck: Supple without LAD. Normal ROM. Trachea midline.? Cardiac: Chest wall symmetric. Regular rate and rhythm. S1 and S1 appreciated. No MRG. No JVD. Lungs: CTA bilaterally. No rales, rhonchi, or wheezes. Normal respiratory effort without accessory muscle use. Abdomen: No visible lesions, masses or scars. Soft, nondistended, tender to palpation over the JOSUE and LL quadrants without rebound tenderness or guarding. Negative Allen sign. Negative McBurney point tenderness. Negative Rovsing's sign. Normoactive BS x4. No masses, hepatomegaly, or splenomegaly.? Ext: Upper and lower extremities atraumatic. Full ROM throughout. Strength 5/5 throughout. Capillary refill <2 seconds in all extremities. Pulses 2+ equal and bilateral. No edema, cyanosis, or clubbing. Neuro: Alert and oriented x3. Normal speech. CN 2-12 grossly intact. Sensation intact to light touch.? NV intact distally. Psych: Appropriate mood and affect. Responds appropriately to questions.? Course Course Course Narrative: 1400-- leukocytosis to 11.9, increased from 6.2 and 4/230. Chronically elevated liver enzymes. No acute electrolyte abnormalities requiring intervention. Lipase within normal limits. COVID, flu negative. 1507--patient placed in physician observation at 3:07 p.m. Awaiting urinalysis results and p.o. trial. 1555-- on re-evaluation patient states that his nausea and abdominal pain have improved with GI cocktail and IVF and has tolerated p.o. trial. Informed patient of the CT results and elevated liver enzymes as he will need to follow up with outpatient GI. Provided patient with a paper script for Zofran. Advised patient to stay hydrated. Discussed worrisome signs and symptoms and when to return to the ED. Used shared decision making to determine patient's disposition. All questions answered. The patient agreeable with plan. Patient is still afebrile with symptom improvement > no further intervention warranted at this time. Patient is stable for discharge. Medications Administered Discontinued Medications Generic Name Dose Route Start Last Admin Trade Name Freq PRN Reason Stop Dose Admin Al Hydroxide/Mg Hydroxide 30 ml 06/20/23 12:41 06/20/23 13:39 Magnesium Hydrox/Alum Hydrox 30 Ml Oral.Susp PO 06/20/23 12:42 30 ml ONCE ONE Administration Belladonna Alkaloids/Phenobarbital 10 ml 06/20/23 12:44 06/20/23 13:39 Phenobarb/Hyoscy/Atropine/Scop 10 Ml Elixir PO 06/20/23 12:45 10 ml ONCE ONE Administration Sodium Chloride 1,000 mls @ 999 mls/hr 06/20/23 12:45 06/20/23 14:18 Ns IV 06/20/23 13:45 Infused .Q1H1M ASHLEIGH Infusion Lidocaine HCl 15 ml 06/20/23 12:45 06/20/23 13:39 Lidocaine Hcl Viscous 2 % 15 Ml Solution MUCOUS MEM 06/20/23 12:46 15 ml ONCE ONE Administration Ondansetron HCl 4 mg 06/20/23 12:41 06/20/23 13:03 Ondansetron Hcl 4 Mg/2 Ml Vial IVPUSH 06/20/23 12:42 4 mg ONCE ONE Administration Medical Decision Making Medical Decision Making MDM Narrative: 47-year-old male with a PMHx of depression, diabetes, hypoglycemia, substance abuse, hernia s/p repair, pancreatitis, colitis presents to the ED complaining of abdominal pain, N/V, diarrhea & chills x2 days. Signs stable, patient nontoxic appearing, in no acute distress. Exam significant wear left upper and left lower quadrant tenderness to palpation without rebound or guarding. Normoactive bowel sounds throughout. Negative Allen sign, Rovsing sign year and McBurney point tenderness. Regular rate and rhythm, lungs clear to auscultation. Clinical concern for gastroenteritis vs gastritis vs colitis vs diverticulits/diverticulosis vs cyclical vomiting. Low suspicion for UTI, nephrolithiasis, pyelonephritis. Unlikely pancreatitis, cholecystitis, appendicitis, ischemic bowel, small bowel obstruction, acute abdomen. Plan: Labs, UA, imaging, pain control, IV fluids Differential Diagnosis Differential Diagnoses: The differential diagnosis associated with the presentation includes Clinical concern for gastroenteritis vs gastritis vs colitis vs diverticulits/diverticulosis vs cyclical vomiting. Low suspicion for UTI, nephrolithiasis, pyelonephritis. Unlikely pancreatitis, cholecystitis, appendicitis, ischemic bowel, small bowel obstruction, acute abdomen. Lab Data MDM Lab Attestation statement: I reviewed the patient's lab results. See above course narrative. 06/20/23 10:33 06/20/23 10:33 Labs: Lab Results 06/20/23 06/20/23 Range/Units 10:33 15:24 WBC 11.9 H (4.8-10.8) X10*3/uL RBC 4.43 L D (4.60-5.80) X10*6/uL Hgb 16.1 D (14.0-18.0) g/dl Hct 45.4 D (42.0-52.0) % MCV 102.5 H (80.0-98.0) fL MCH 36.3 H (27.0-33.0) pg MCHC 35.5 (31.0-36.0) g/dl RDW 12.5 (11.0-16.0) % Plt Count 170 D (160-400) X10*3/uL MPV 10.0 (9.4-12.4) fL Immature Gran % (Auto) 0.3 (0.0-0.4) % Neut % (Auto) 79.8 H (45-73) % Lymph % (Auto) 10.8 L (20-40) % [place] % (Auto) 8.7 (2-11) % Eos % (Auto) 0.1 (0-4) % Baso % (Auto) 0.3 (0-2) % Lymph # (Auto) 1.3 (1.2-4.9) X10*3/uL [place] # (Auto) 1.0 (0.1-1.2) X10*3/uL Eos # (Auto) 0.0 (0.0-0.4) X10*3/uL Baso # (Auto) 0.0 (0.0-0.2) X10*3/uL Abs Immat Gran (auto) 0.04 H (0.00-0.03) X10*3/uL Absolute Neuts (auto) 9.5 H (2.0-8.3) x10*3/uL Absolute Nucleated RBC 0.000 (0.0-0.012) X10*3/uL Nucleated RBC % (auto) 0.0 (0.0-0.2) /100WBC Sodium 141 (135-145) mmol/L Potassium 3.9 (3.3-5.1) mmol/L Chloride 92 L (96-108) mmol/L Carbon Dioxide 36 H (22-29) mmol/L Anion Gap 17 (12-20) BUN 13 (9-16) mg/dL Creatinine 0.85 (0.5-1.4) mg/dL Estim Creat Clear Calc 105.6 Estimated GFR > 60 Random Glucose 153 H (60-115) mg/dL Calcium 8.7 D (8.4-10.2) mg/dL Magnesium 1.5 L (1.6-2.6) mg/dL Total Bilirubin 1.5 H (0.0-1.0) mg/dL Direct Bilirubin 0.7 H (0.0-0.5) mg/dL AST 135 H (5-37) U/L ALT 64 H (0-40) U/L Alkaline Phosphatase 166 H (39-117) U/L Total Protein 6.0 L (6.5-8.0) g/dL Albumin 3.3 L (3.5-5.0) g/dL Lipase 8 (8-78) U/L Urine Color Dark Yellow Urine Appearance Clear Urine pH 6.5 (5.0-9.0) Ur Specific [place] >= 1.030 H (1.005-1.025) Urine Protein >=1000 (4+) H (Neg-Trace) mg/dL Urine Glucose (UA) Negative (Negative) mg/dL Urine Ketones 80 (Negative) mg/dL Urine Blood Large (3+) H (Negative) Urine Nitrite Negative (Negative) Ur Leukocyte Esterase Trace H (Negative) Urine RBC >20 H (0-2) /HPF Urine WBC 0-5 (0-5) /HPF Ur Squamous Epith Cells 3-5 (0-2) /HPF Urine Bacteria None Seen (None Seen) Hyaline Casts 3-5 (0-2) /LPF COVID-19 (DAYANA) Negative (Negative) COVID-19 Clin Com See Note Influenza Type A (PORFIRIO) Negative (Negative) Influenza Type B (PORFIRIO) Negative (Negative) Influenza A & B Note See Note Independent Interpretation I performed an independent interpretation of an: CT Scan (CT abdomen and pelvis with enlarged liver, agree with radiologist's interpretation.) Radiology Impression Discussion of test interpretation with radiology: I have reviewed the radiologist's reading. Radiologist Impression: CT abdomen pelvis wo IV con IMPRESSION: 1. Punctate nonobstructing left renal stones. No hydronephrosis or obstructive ureterolithiasis. 2. Urinary bladder appears mildly thick-walled relative to degree of underdistention, recommend correlation with urinalysis and symptoms of cystitis. 3. Hepatomegaly and hepatic steatosis with heterogeneous regions of focal fatty sparing. External Record Review External record reviewed: Inpatient record Prescription Management I considered prescription management with: Pain Medication and Other (Anti emetics) Chronic Conditions Patient?s care impacted by: Diabetes Core Measures AMI core measures followed: Yes Measure exclusions: not indicated Discharge Plan Discharge Clinical Impression: Gastroenteritis, Hepatomegaly, Hepatic steatosis Patient Disposition: Home, Self-Care Instructions: Acute Nausea and Vomiting (ED) Additional Instructions: Your lab workup today was reassuring.? Your urine test was negative for infection.? Your CT of your abdomen and pelvis showed enlarged liver. You have been supplied with a referral to our GI specialists. Please call them to make an appointment for follow-up. Your symptoms are most consistent with a viral stomach bug, also known as gastroenteritis.? The treatment for this is supportive care. Symptoms usually resolve on their own in 48-72 hours.? The recommendation is rest and lots of oral hydration.? Stick to a bland diet like soup and toast while you are not feeling well.? Zofran is an anti-nausea medication. This has been sent to your pharmacy for you to take as needed for nausea.? You can also try over the counter Pepto Bismol or Imodium as needed for upset stomach and diarrhea.? Follow up with your primary care provider as needed. If you develop new or worsening symptoms call 911 or come back to the ER for further evaluation. Prescriptions: New ondansetron 4 mg tablet,disintegrating 4 mg PO DAILY PRN (Reason: nausea and vomiting) 5 Days Qty: 10 0RF No Action (DME) insulin syringe-needle U-100 [BD Insulin Syringe] 0.3 mL 29 gauge x 1/2 syringe See Rx Instructions .ROUTE .MEDSUPPLY Qty: 150 5RF Rx Instructions: 4 times a day (DME) pen needle, diabetic [BD Felisha 2nd Gen Pen Needle] 32 gauge x 5/32 needle See Rx Instructions .ROUTE .MEDSUPPLY Qty: 50 4RF Rx Instructions: once a day (DME) Ketostix Strip See Rx Instructions .Route Qty: 50 6RF Rx Instructions: As directed (DME) 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 meter [FreeStyle Lite Meter] Kit See Rx Instructions .Route Qty: 1 0RF Rx Instructions: As directed-checks 4 X/day insulin lispro [Humalog U-100 Insulin] 100 unit/mL solution 100 unit subcut DAILY Qty: 30 4RF clonidine HCl 0.1 mg tablet 1 tab PO DAILY cholecalciferol (vitamin D3) 50 mcg (2,000 unit) capsule 100 mcg PO DAILY omeprazole 20 mg Capsule,Delayed Release(Dr/Ec) 20 mg PO BID@0630,1630 Qty: 60 0RF clonazepam 0.5 mg tablet 0.5 mg PO BID PRN (Reason: Anxiety) (DME) FreeStyle Lite Strips Strip See Rx Instructions .ROUTE .MEDSUPPLY Qty: 300 11RF Rx Instructions: 4x daily (DME) lancets [FreeStyle Lancets] 28 gauge misc See Rx Instructions .Route Qty: 100 5RF Rx Instructions: As directed 4 X/day fluticasone propion-salmeterol [Advair Diskus] 250-50 mcg/dose blister with device 1 ea inhalation BID fluticasone propionate 50 mcg/actuation spray,suspension 1 spray intranasal DAILY lisinopril 5 mg tablet 5 mg PO DAILY Baqsimi 3 mg/actuation spray,non-aerosol 3 mg intranasal ONCE Qty: 2 5RF Referrals: [facility] [Provider Group] Linda Carrasquillo NP [Primary Care Provider] -
[2023-06-20] MEDS: 0.9 % Sodium Chloride 1,000 ML 999 ML IV (12:55)
[2023-06-20] MEDS: ondansetron HCL 4 MG/2 ML VIAL IVPUSH (13:03)
--- NOTE | 2023-06-20 13:12 | PC.NURSE ---
pt a&ox3. respirations even and unlabored. pt reports nausea, vomiting and diarrhea since . pt reports inability to keep any liquid down. pt reports upper and lower left abdominal pain. pt reports his last alcoholic drink being 6 months ago. pt abdomen soft non tender. pt reports epigastric pain.pt denies chest pain and SOB. pt normal sinus on tele.
[2023-06-20] MEDS: Magnesium Hydrox/Alum Hydrox 30 ML ORAL.SUSP PO (13:39)
[2023-06-20] MEDS: PHENobarb/Hyoscy/Atropine/Scop 10 ML ELIXIR PO (13:39)
[2023-06-20] MEDS: Lidocaine HCl Viscous 2 % 15 ML SOLUTION MUCOUS MEM (13:39)
[2023-06-20 13:44] LABS: Magnesium 1.5 mg/dL (1.6-2.6)
[2023-06-20 14:38] VITALS: BP 156/86; PULSE 73; RESP 16; O2SAT 96
[2023-06-20 15:31] LABS: Appearance Urine Clear; Color Urine Dark Yellow; Glucose Urine UA Negative (Negative); Leukocyte Esterase Urine Trace (Negative); Nitrite Urine Negative (Negative); PH 6.5 (5.0-9.0); Specific Gravity - Urine >= 1.030 (1.005-1.025); UMIC TRIGGER UACC YES; Urine Blood Large (3+) (Negative); Urine Ketones 80 mg/dL (Negative); Urine Protein >=1000 (4+) mg/dL (Neg-Trace)
[2023-06-20 15:34] LABS: Bacteria Urine None Seen (None Seen); RBC Urine >20 /HPF (0-2); WBC Urine 0-5 /HPF (0-5)
== END 2023-06-20 16:11 | disposition home or self-care (01) ==
PROVIDERS: Physician Assistant Medical; Emergency Provider Emergency Medicine; PCP Nurse Practitioner Family
DX: K52.9 Noninfective gastroenteritis and colitis, unspecified (principal); K76.0 Fatty (change of) liver, not elsewhere classified; R16.0 Hepatomegaly, not elsewhere classified; Z20.822 Contact with and (suspected) exposure to COVID-19; R11.2 Nausea with vomiting, unspecified; E10.8 Type 1 diabetes mellitus with unspecified complications; F19.10 Other psychoactive substance abuse, uncomplicated; F17.210 Nicotine dependence, cigarettes, uncomplicated; F12.90 Cannabis use, unspecified, uncomplicated; Z79.4 Long term (current) use of insulin; Z79.899 Other long term (current) drug therapy
CPT/HCPCS: 74176; 80048; 80076; 81001; 83690; 83735; 85025; 87502; 87635; 96361; 96374; 99284; J2405

== ENCOUNTER 2023-07-18 10:11 | Emergency (ER) | payer MEDICAID, SELFPAY ==
[2023-07-18 10:27] VITALS: BP 154/86; PULSE 115; RESP 19; TEMP 36.6; O2SAT 98; BMI 21.2
[2023-07-18 10:49] LABS: MANUAL DIFF FLAG NO
[2023-07-18 10:57] LABS: Basophils Percent Auto 0.1 % (0-2); Hematocrit 46.8 % (42.0-52.0); Hemoglobin 16.9 g/dl (14.0-18.0); Imm Gran Abs Auto 0.06 X10*3/uL (0.00-0.03); Imm Gran Pct Auto 0.4 % (0.0-0.4); Lymphocytes Absolute Auto 1.3 X10*3/uL (1.2-4.9); Lymphocytes Percent Auto 9.4 % (20-40); Mean Corpuscular HGB Conc 36.1 g/dl (31.0-36.0); Mean Corpuscular Hemoglobin 36.4 pg (27.0-33.0); Mean Corpuscular Volume 100.9 fL (80.0-98.0); Mean Platelet Volume 10.2 fL (9.4-12.4); Monocytes Absolute Auto 1.3 X10*3/uL (0.1-1.2); Monocytes Percent Auto 9.5 % (2-11); Neutrophils Absolute Auto 10.8 x10*3/uL (2.0-8.3); Neutrophils Percent Auto 80.6 % (45-73); Platelet Count 223 X10*3/uL (160-400); Red Blood Count 4.64 X10*6/uL (4.60-5.80); Red Cell Distribution Width 12.2 % (11.0-16.0); White Blood Count 13.4 X10*3/uL (4.8-10.8)
[2023-07-18 11:10] LABS: Alanine Aminotransferase 47 U/L (0-40); Albumin Level 3.5 g/dL (3.5-5.0); Alkaline Phosphatase 154 U/L (39-117); Anion Gap 20 (12-20); Aspartate Amino Transferase 82 U/L (5-37); Bilirubin Direct 0.5 mg/dL (0.0-0.5); Bilirubin Total 1.3 mg/dL (0.0-1.0); Blood Urea Nitrogen 17 mg/dL (9-16); Calcium 9.4 mg/dL (8.4-10.2); Carbon Dioxide 34 mmol/L (22-29); Chloride 90 mmol/L (96-108); Estimated Glomerular Filt Rate > 60; Glucose Random 222 mg/dL (60-115); Lipase 8 U/L (8-78); Potassium 3.2 mmol/L (3.3-5.1); Sodium 141 mmol/L (135-145); Total Protein 6.4 g/dL (6.5-8.0)
[2023-07-18 12:00] VITALS: BP 166/73; PULSE 94; RESP 16; O2SAT 99
--- NOTE | 2023-07-18 12:20 | ED.GENADULT ---
HPI - General Adult General Chief complaint: Abdominal Pain Stated complaint: nausea, abd pain, diarrhea Time Seen by Provider: 07/18/23 12:20 Source: patient Mode of arrival: ambulatory Limitations: no limitations History of Present Illness HPI narrative: Patient is a 47 year old assigned male at with a history of DM and alcohol use presenting to the emergency department today with nausea and vomiting. Patient states that he has been having nausea, vomiting, abdominal pain, and diarrhea for 2 days. Patient denies any dizziness, lightheadedness, fever, chills, blurry vision, double vision, loss of vision, chest pain, difficulty breathing, shortness of breath, back pain, night sweats, pain with urination, increased urinary frequency, increased urinary urgency, blood in his urine or stool, syncope or a near syncopal episode, recent trauma or falls, bowel incontinence, bladder incontinence, bowel retention, bladder retention, or any other complaints at this time. Onset (ago): day(s) (2) Location: abdomen Severity: mild Severity scale (1-10): 2 Relieving factors: none Exacerbating factors: none Associated symptoms: nausea/vomiting Treatments prior to arrival: none Related Data Home Medications Medication Instructions Recorded Confirmed clonazepam 0.5 mg tablet 0.5 mg PO BID PRN Anxiety 07/16/21 05/27/23 cholecalciferol (vitamin D3) 50 100 mcg PO DAILY 08/10/21 05/27/23 mcg (2,000 unit) capsule clonidine HCl 0.1 mg tablet 1 tab PO DAILY 08/10/21 05/27/23 lisinopril 5 mg tablet 5 mg PO DAILY 10/30/22 05/27/23 fluticasone 250 mcg-salmeterol 50 1 ea inhalation BID 02/19/23 05/27/23 mcg/dose blistr powdr for inhalation (Advair Diskus) fluticasone propionate 50 1 spray intranasal DAILY 02/19/23 05/27/23 mcg/actuation nasal spray,suspension Previous Rx's Medication Instructions Recorded insulin syringe-needle U-100 0.3 #150 ea 08/29/20 mL 29 gauge x 1/2 (BD Insulin Syringe) pen needle, diabetic 32 gauge x #50 ea 08/29/20 5/32 (BD Felisha 2nd Gen Pen Needle) acetone (urine) test (Ketostix #50 ea 10/08/21 strips) 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 meter (FreeStyle #1 ea 10/22/22 Lite Meter kit) omeprazole 20 mg capsule,delayed 20 mg PO BID@0630,1630 #60 caps 01/16/23 release blood sugar diagnostic (FreeStyle #300 ea 02/19/23 Lite Strips) lancets 28 gauge (FreeStyle #100 ea 02/19/23 Lancets) Humalog U-100 Insulin 100 unit/mL 100 unit subcut DAILY #30 mL 04/24/23 subcutaneous solution (insulin lispro) glucagon 3 mg/actuation nasal 3 mg intranasal ONCE #2 ea 05/27/23 spray (Baqsimi) ondansetron 4 mg disintegrating 4 mg PO DAILY PRN nausea and 06/20/23 tablet vomiting 5 days #10 tabs ondansetron 4 mg disintegrating 4 mg PO Q8H 3 days #9 tabs 07/18/23 tablet Allergies Allergy/AdvReac Type Severity Reaction Status Date / Time hydroxyzine [From VISTARIL] Allergy Intermediate RASH, Verified 07/18/23 10:27 ANXIOUS quetiapine [Seroquel] Allergy Unknown Unknown Verified 07/18/23 10:27 Review of Systems Constitutional: Constitutional: Reports no additional constitutional complaints, Denies chills, Denies fever(s) and Denies night sweats Eyes: Eyes: Reports no additional eye complaints, Denies blurry vision, Denies change in vision, Denies diplopia, Denies eye discharge, Denies loss of vision and Denies eye pain ENT: Denies dizziness Cardiovascular: Cardiovascular: Reports no additional cardiovascular complaints, Denies chest pain, Denies lightheadedness, Denies Loss of Consciousness and Denies dyspnea Respiratory: Respiratory: Reports no additional respiratory complaints and Denies dyspnea Gastrointestinal: Gastrointestinal: Reports no additional gastrointestinal complaints, Reports abdominal pain, Denies melena, Denies hematochezia, Denies change in bowel habits, Denies change in stool character, Reports diarrhea, Reports nausea and Reports vomiting Genitourinary: Genitourinary: Reports no additional male genitourinary complaints, Denies hematuria, Denies oliguria, Denies difficulty urinating, Denies dysuria, Denies urinary frequency, Denies urinary hesitancy, Denies urinary incontinence and Denies urinary urgency Musculoskeletal: Musculoskeletal: Reports no additional musculoskeletal complaints, Denies numbness and Denies tingling Neurologic: Denies dizziness, Denies loss of vision, Denies numbness and Denies tingling Psychiatric: Psychiatric: Reports no additional psychiatric complaints Endocrine: Endocrine: Reports no additional endocrine complaints Hematologic/Lymphatic: Hematologic/Lymphatic: Reports no additional hematologic/lymphatic complaints Allergic/Immunologic: Allergic/Immunologic: Reports no additional allergic/immunologic complaints PMFSH Past Medical History Attestation statement: The following information was validated with the patient. 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 Mother No problems noted. Social History Social History Household Members: Family Household Members Other:: mother Housing: House Do you presently have visiting nurse or other home services: No Alcohol intake: former Patient Tobacco Use Status: Current everyday Tobacco user Tobacco use type: Cigarette Cigarettes Per Day: 2 Smoked in Last 30 Days: Yes Use of substances other than those prescribed or required for medical reasons: Yes Substance Use Type: Marijuana Advance Directives: Yes Advance Directives on File: Yes Advance Directives Date on File: 08/29/20 service: No Current occupational status: unemployed Physical Exam ED Vital Signs: Vital Signs - 24 hr 07/18/23 10:27 07/18/23 12:00 07/18/23 14:00 Temperature 98 F Pulse Rate 115 H 94 96 Respiratory Rate 19 16 16 Blood Pressure 154/86 H 166/73 H 164/77 H Pulse Oximetry 98 99 100 Oxygen Delivery Method Room Air Room Air Room Air BMI result Body Mass Index 21.2 Const General: cooperative, no acute distress, alert and awake Nutritional Appearance: well nourished Orientation/consciousness: patient oriented x3 Limitations: no limitations HENMT Head: Yes normal to inspection and Yes atraumatic Ears: hearing grossly normal bilaterally and external ears normal General nose exam: Normal external nose present, no nasal discharge noted and no epistaxis Face and sinus: Yes normal facial exam, No abrasion and No laceration Mouth: Normal oral and palatal mucosa present, no drooling and no muffled voice Eyes General: appearance normal, both eyes and all related structures Periorbital: periorbital findings normal Eyelids: Yes eyelids normal Conjunctivae: conjunctivae normal Pupils: Equal, round and reactive pupils present EOM: EOMs intact bilaterally Neck Neck: Yes normal visual inspection, Yes full ROM and Yes no lymphadenopathy Chest Chest palpation & inspection: normal inspection of the chest Resp Effort & Inspection: normal respiratory effort and able to speak in complete sentences Auscultation: clear to auscultation bilaterally Cardio Rate: regular rate Rhythm: regular rhythm GI Inspection: Yes normal to inspection Palpation (GI): Soft to palpation, not firm, nontender and no guarding Neuro General: patient oriented x3 and moves all extremities Cranial nerves: Yes Equal, round and reactive pupils present Cognition (Neuro): normal cognition Motor exam (neuro): 5/5 motor strength present throughout Sensory Exam: Normal double simultaneous stimulation for sensation Coordination: [id number] test normal Extrem General: Yes normal to inspection, Yes full ROM and Yes capillary refill normal Psych Appearance: grossly normal Mental Status: mental status grossly normal Affect: normal affect Attitude: cooperative Thought process: Normal thought process present Thought content: Normal thought content present Insight: Good insight present (Psych) Medications Administered Discontinued Medications Generic Name Dose Route Start Last Admin Trade Name Freq PRN Reason Stop Dose Admin Sodium Chloride 1,000 mls @ 999 mls/hr 07/18/23 12:30 07/18/23 14:05 Ns IV 07/18/23 13:30 Infused .Q1H1M ASHLEIGH Infusion Metoclopramide HCl 10 mg 07/18/23 15:15 07/18/23 15:29 Metoclopramide Hcl 10 Mg/2 Ml Vial IVPUSH 07/18/23 15:16 10 mg ONCE ONE Administration Ondansetron HCl 4 mg 07/18/23 12:20 07/18/23 12:33 Ondansetron Hcl 4 Mg/2 Ml Vial IVPUSH 07/18/23 12:21 4 mg ONCE ONE Administration Pantoprazole Sodium 40 mg 07/18/23 13:49 07/18/23 13:59 Pantoprazole Sodium 40 Mg/10 Ml Vial IVPUSH 07/18/23 13:50 40 mg ONCE ONE Administration Potassium Chloride 20 meq 07/18/23 12:20 07/18/23 12:32 Potassium Chloride Packet 20 Meq Packet PO 07/18/23 12:21 20 meq ONCE ONE Administration Medical Decision Making Medical Decision Making [facility] Narrative: Patient is a 47 year old assigned male at with a history of gastritis and DM presenting to the emergency department today with nausea and vomiting. Patient's physical exam was unremarkable. Patient's blood work showed a mildly decreased potassium but was otherwise unremarkable. I explained my physical exam findings as well as all test results to the patient. I answered all questions asked by the patient. Patient received potassium, fluids, and anti-emetics which he stated helped his symptoms significantly. This is a chronic issue for the patient. I stressed the importance of the patient taking his medication as prescribed. I stressed the importance of the patient following up with his primary care provider and a GI specialist. I stressed the importance of the patient returning to the emergency department immediately if his symptoms were to worsen or if he were to develop any dizziness, shortness of breath, difficulty breathing, chest pain, blurry vision, loss of vision, nausea, vomiting, abdominal pain, fever, chills, back pain, or any other complaints. Patient verbalized agreement and understanding with this treatment plan and discharge. Differential Diagnosis Differential Diagnoses: The differential diagnosis associated with the presentation includes Gastritis Nausea vomiting Admission/Observation Consideration of admission/observation: Escalation of care including admission/observation considered Patient would have been admitted to the hospital had his work up had any findings where hospital admission was appropriate and his clinical presentation warranted hospital admission. Lab Data [facility] Lab Attestation statement: I reviewed the patient's lab results. My interpretation of these studies and their corresponding values is that they are grossly normal. 07/18/23 10:43 07/18/23 10:43 Labs: Lab Results 07/18/23 Range/Units 10:43 WBC 13.4 H (4.8-10.8) X10*3/uL RBC 4.64 (4.60-5.80) X10*6/uL Hgb 16.9 (14.0-18.0) g/dl Hct 46.8 (42.0-52.0) % MCV 100.9 H (80.0-98.0) fL MCH 36.4 H (27.0-33.0) pg MCHC 36.1 H (31.0-36.0) g/dl RDW 12.2 (11.0-16.0) % Plt Count 223 D (160-400) X10*3/uL MPV 10.2 (9.4-12.4) fL Immature Gran % (Auto) 0.4 (0.0-0.4) % Neut % (Auto) 80.6 H (45-73) % Lymph % (Auto) 9.4 L (20-40) % Posey % (Auto) 9.5 (2-11) % Eos % (Auto) 0.0 (0-4) % Baso % (Auto) 0.1 (0-2) % Lymph # (Auto) 1.3 (1.2-4.9) X10*3/uL Posey # (Auto) 1.3 H (0.1-1.2) X10*3/uL Eos # (Auto) 0.0 (0.0-0.4) X10*3/uL Baso # (Auto) 0.0 (0.0-0.2) X10*3/uL Abs Immat Gran (auto) 0.06 H (0.00-0.03) X10*3/uL Absolute Neuts (auto) 10.8 H (2.0-8.3) x10*3/uL Absolute Nucleated RBC 0.000 (0.0-0.012) X10*3/uL Nucleated RBC % (auto) 0.0 (0.0-0.2) /100WBC Sodium 141 (135-145) mmol/L Potassium 3.2 L (3.3-5.1) mmol/L Chloride 90 L (96-108) mmol/L Carbon Dioxide 34 H (22-29) mmol/L Anion Gap 20 (12-20) BUN 17 H (9-16) mg/dL Creatinine 0.89 (0.5-1.4) mg/dL Estim Creat Clear Calc 99.0 Estimated GFR > 60 Random Glucose 222 H (60-115) mg/dL Calcium 9.4 D (8.4-10.2) mg/dL Total Bilirubin 1.3 H (0.0-1.0) mg/dL Direct Bilirubin 0.5 (0.0-0.5) mg/dL AST 82 H (5-37) U/L ALT 47 H (0-40) U/L Alkaline Phosphatase 154 H (39-117) U/L Total Protein 6.4 L (6.5-8.0) g/dL Albumin 3.5 (3.5-5.0) g/dL Lipase 8 (8-78) U/L COVID-19 (DAYANA) Negative (Negative) COVID-19 Clin Com See Note Influenza Type A (PORFIRIO) Negative (Negative) Influenza Type B (PORFIRIO) Negative (Negative) Influenza A & B Note See Note Discharge Plan Discharge Clinical Impression: Acute hypokalemia, Nausea & vomiting Patient Disposition: Home, Self-Care Instructions: Hypokalemia (ED), Acute Nausea and Vomiting (ED) Additional Instructions: Follow up with your primary care provider. Return to the emergency department immediately if your symptoms worsen or if you develop any dizziness, shortness of breath, difficulty breathing, chest pain, blurry vision, loss of vision, nausea, vomiting, abdominal pain, fever, chills, back pain, or any other complaints. Prescriptions: New ondansetron 4 mg tablet,disintegrating 4 mg PO Q8H 3 Days Qty: 9 0RF No Action (DME) insulin syringe-needle U-100 [BD Insulin Syringe] 0.3 mL 29 gauge x 1/2 syringe See Rx Instructions .ROUTE .MEDSUPPLY Qty: 150 5RF Rx Instructions: 4 times a day (DME) pen needle, diabetic [BD Felisha 2nd Gen Pen Needle] 32 gauge x 5/32 needle See Rx Instructions .ROUTE .MEDSUPPLY Qty: 50 4RF Rx Instructions: once a day (DME) Ketostix Strip See Rx Instructions .Route Qty: 50 6RF Rx Instructions: As directed (DME) 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 meter [FreeStyle Lite Meter] Kit See Rx Instructions .Route Qty: 1 0RF Rx Instructions: As directed-checks 4 X/day insulin lispro [Humalog U-100 Insulin] 100 unit/mL solution 100 unit subcut DAILY Qty: 30 4RF clonidine HCl 0.1 mg tablet 1 tab PO DAILY cholecalciferol (vitamin D3) 50 mcg (2,000 unit) capsule 100 mcg PO DAILY ondansetron 4 mg tablet,disintegrating 4 mg PO DAILY PRN (Reason: nausea and vomiting) 5 Days Qty: 10 0RF omeprazole 20 mg Capsule,Delayed Release(Dr/Ec) 20 mg PO BID@0630,1630 Qty: 60 0RF clonazepam 0.5 mg tablet 0.5 mg PO BID PRN (Reason: Anxiety) (DME) FreeStyle Lite Strips Strip See Rx Instructions .ROUTE .MEDSUPPLY Qty: 300 11RF Rx Instructions: 4x daily (DME) lancets [FreeStyle Lancets] 28 gauge misc See Rx Instructions .Route Qty: 100 5RF Rx Instructions: As directed 4 X/day fluticasone propion-salmeterol [Advair Diskus] 250-50 mcg/dose blister with device 1 ea inhalation BID fluticasone propionate 50 mcg/actuation spray,suspension 1 spray intranasal DAILY lisinopril 5 mg tablet 5 mg PO DAILY Baqsimi 3 mg/actuation spray,non-aerosol 3 mg intranasal ONCE Qty: 2 5RF Referrals: Linda Carrasquillo INFORMATION SYSTEMS SUPERVISOR [Primary Care Provider] - Interventions: ED Discharge Assessment Last Done: 07/18/23 16:11 Discharge Date/Time: 07/18/23 16:12 Print Language: Hungarian
--- NOTE | 2023-07-18 12:39 | PC.NURSE ---
pt reports n/v since . zofran and klor con given per order. waiting for pharm to bring up IV potassium. pt reports abd pain in RUQ.
[2023-07-18 14:00] VITALS: BP 164/77; PULSE 96; RESP 16; O2SAT 100
--- NOTE | 2023-07-18 15:32 | PC.NURSE ---
when presented with DC paperwork, pt reported that they were still feeling nauseous and not well enough to recouperate at home. PA aware, reglan given per PA order. plan of care ongoing
[2023-07-18 16:08] VITALS: BP 161/73; PULSE 86; RESP 16
== END 2023-07-18 16:12 | disposition home or self-care (01) ==
PROVIDERS: Emergency Provider Emergency Medicine Emergency Medical Services; PCP Nurse Practitioner Family
DX: E87.6 Hypokalemia (principal); R11.2 Nausea with vomiting, unspecified; E10.9 Type 1 diabetes mellitus without complications; F32.A Depression, unspecified; Z79.899 Other long term (current) drug therapy; Z79.4 Long term (current) use of insulin; F17.210 Nicotine dependence, cigarettes, uncomplicated; Z11.52 Encounter for screening for COVID-19
CPT/HCPCS: 36415; 80048; 80076; 83690; 85025; 87502; 87635; 96361; 96374; 96375; 99284; J2405; J2765

== ENCOUNTER 2023-08-27 09:46 | Outpatient (REF) | payer MEDICAID, SELFPAY ==
[2023-08-27 11:05] LABS: Creatinine Urine 245.76 mg/dL
[2023-08-27 11:22] LABS: Microalbum/Creatinine Ratio Ur 813.8 ug/mg cr (<30); Microalbumin Urine > 2000.0 mg/L
== END 2023-08-27 09:47 | disposition home or self-care (01) ==
LOC: HO.10HDL 09:46
PROVIDERS: Visit Provider Internal Medicine Endocrinology, Diabetes & Metabolism
DX: E10.65 Type 1 diabetes mellitus with hyperglycemia (principal)
CPT/HCPCS: 82043; 82570

== ENCOUNTER 2023-11-16 09:44 | Day surgery (SDC) | payer MEDICAID, SELFPAY ==
[2023-11-12 15:21] VITALS: BMI 21.6
--- NOTE | 2023-11-13 09:12 | HO.ANESPROP2 ---
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 Mother No problems noted. Family history of problems with anesthesia: No Surgical History Surgical History (Updated 11/12/23 @ 15:14 by Garima Buckner RN) History of esophagogastroduodenoscopy (EGD) H/O colonoscopy Hx of hernia repair History of Problems with Anesthesia: No Social History Social History Household Members: Family Household Members Other:: mother Housing: House Do you presently have visiting nurse or other home services: No Alcohol intake: former Patient Tobacco Use Status: Current everyday Tobacco user Tobacco use type: Cigarette Cigarettes Per Day: 2 Substance Use Type: Marijuana Advance Directives Date on File: 08/29/20 service: No Current occupational status: unemployed Meds Allergies Allergy/AdvReac Type Severity Reaction Status Date / Time hydroxyzine [From VISTARIL] Allergy Intermediate RASH, Verified 07/18/23 10:27 ANXIOUS quetiapine [Seroquel] Allergy Unknown Unknown Verified 07/18/23 10:27 Home Medications Medication Instructions Recorded Confirmed Last Taken Type clonazepam 0.5 mg tablet 0.5 mg PO BID PRN Anxiety 07/16/21 11/12/23 Unknown History cholecalciferol (vitamin D3) 50 100 mcg PO DAILY 08/10/21 05/27/23 Unknown History mcg (2,000 unit) capsule clonidine HCl 0.1 mg tablet 1 tab PO DAILY 08/10/21 11/12/23 Unknown History lisinopril 5 mg tablet 5 mg PO DAILY 10/30/22 11/12/23 Unknown History fluticasone 250 mcg-salmeterol 50 1 ea inhalation BID 02/19/23 11/12/23 Unknown History mcg/dose blistr powdr for inhalation (Advair Diskus) fluticasone propionate 50 1 spray intranasal DAILY 02/19/23 11/12/23 Unknown History mcg/actuation nasal spray,suspension Exam Height,Weight and Vital Signs: Height 5 ft 11 in Weight 70.307 kg Pertinent Lab Results Pertinent Lab Results: Laboratory Tests 07/18/23 10:43 WBC 13.4 H Hgb 16.9 Hct 46.8 Plt Count 223 D Sodium 141 Potassium 3.2 L Chloride 90 L Carbon Dioxide 34 H BUN 17 H Creatinine 0.89 Assessment and Plan Assessment Anesthesia Assessment: Chart Reviewed Final Anesthetic Review Family History of Problems with Anesthesia: No History of Problems with Anesthesia: No
[2023-11-16 10:09] VITALS: BMI 21.5
[2023-11-16 10:11] VITALS: BP 149/89; PULSE 78; RESP 16; TEMP 36.8; O2SAT 100
[2023-11-16] MEDS: Lactated Ringers 1,000 ML 100 ML IVCONT (10:20)
--- NOTE | 2023-11-16 10:28 | P.CONAN_ITS ---
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 Mother No problems noted. Family history of problems with anesthesia: No Surgical History Surgical History History of esophagogastroduodenoscopy (EGD) H/O colonoscopy Hx of hernia repair History of Problems with Anesthesia: No Social History Social History Household Members: Family Household Members Other:: mother Housing: House Do you presently have visiting nurse or other home services: No Alcohol intake: former Patient Tobacco Use Status: Current everyday Tobacco user Tobacco use type: Cigarette Cigarettes Per Day: 3 Use of substances other than those prescribed or required for medical reasons: Yes Substance Use Type: Marijuana Are you DNR?: No Advance Directives: No Advance Directives Information Provided: Yes Advance Directives Date on File: 08/29/20 service: No Current occupational status: unemployed Meds Allergies Allergy/AdvReac Type Severity Reaction Status Date / Time hydroxyzine [From VISTARIL] Allergy Intermediate RASH, Verified 07/18/23 10:27 ANXIOUS quetiapine [Seroquel] AdvReac Intermediate Unknown Verified 11/16/23 09:52 Active Medications: Current Medications Albuterol Sulfate (Albuterol Sulfate (0.083%) 2.5 Mg/3 Ml Vial.Neb) 2.5 mg INHALE ONCE PRN PRN Reason: Shortness of Breath/Wheezing Lactated Ringer's (Lr) 1,000 mls @ 100 mls/hr IVCONT .Q10H ASHLEIGH Last Admin: 11/16/23 10:20 Dose: 100 mls/hr Home Medications Medication Instructions Recorded Confirmed Last Taken Type clonazepam 0.5 mg tablet 0.5 mg PO BID PRN Anxiety 07/16/21 11/12/23 Unknown History cholecalciferol (vitamin D3) 50 100 mcg PO DAILY 08/10/21 05/27/23 Unknown History mcg (2,000 unit) capsule clonidine HCl 0.1 mg tablet 1 tab PO DAILY 08/10/21 11/12/23 Unknown History lisinopril 5 mg tablet 5 mg PO DAILY 10/30/22 11/12/23 Unknown History fluticasone 250 mcg-salmeterol 50 1 ea inhalation BID 02/19/23 11/12/23 Unknown History mcg/dose blistr powdr for inhalation (Advair Diskus) fluticasone propionate 50 1 spray intranasal DAILY 02/19/23 11/12/23 Unknown History mcg/actuation nasal spray,suspension Exam Height,Weight and Vital Signs: Height 5 ft 11 in Weight 70.08 kg Last Vital Signs Temp 98.2 F 11/16/23 10:11 Pulse 78 11/16/23 10:11 Resp 16 11/16/23 10:11 BP 149/89 H 11/16/23 10:11 Pulse Ox 100 11/16/23 10:11 O2 Del Method Room Air 11/16/23 10:11 Airway Mallampati Class: II TM Dist: >3cm Neck ROM: Full Denture: Upper Heart: RRR Lungs: CTA Assessment and Plan Assessment Anesthesia Assessment: Anesthesia Plan Discussed and Smoking Cess. Discussed Final Anesthetic Review Family History of Problems with Anesthesia: No History of Problems with Anesthesia: No NPO: Yes ASA Class: II Final Preanesthetic Review: Meds/Allgs Chart Reviewed, Consent Obtained/Reviewed and Anes Risks/Benef Reviewed Patient Risk: Low Procedure Risk: Low Anesthetic Plan Anesthetic Plan: MAC: Disposition: Standard PACU
--- NOTE | 2023-11-16 11:39 | P.BOP_ITS ---
Brief Operative Note Date of Service: 11/16/23 Pre-op diagnosis: GERD, esophagitis Post-op diagnosis: other (R/O Grigsby's, Mild gastric retention) Procedure: EGD with biopsies Surgeon: Hank Stanford MD Anesthesia: MAC Was an Preschool Adviser used for this Procedure?: No Estimated blood loss (mL): 2.0 Pathology: other (A. EG Junction at 39cm B. Gastric antrum) Condition: stable Disposition: PACU
[2023-11-16 11:40] VITALS: BP 160/92; PULSE 90; RESP 16; TEMP 36.1; O2SAT 100
[2023-11-16 11:45] VITALS: BP 150/87; PULSE 81; RESP 16; O2SAT 100
[2023-11-16 11:50] VITALS: BP 168/92; PULSE 90; RESP 16; O2SAT 100
[2023-11-16 11:55] VITALS: BP 160/85; PULSE 79; RESP 16; O2SAT 100
--- NOTE | 2023-11-16 12:08 | HO.POSTANES ---
Post Anesthesia Evaluation Post Anesthesia Evaluation Date of Service: 11/16/23 Vital Signs: Vital Signs Temp Pulse Resp BP Pulse Ox O2 Del Method O2 Flow Rate 11/16/23 11:55 79 16 160/85 H 100 Room Air 11/16/23 11:50 90 16 168/92 H 100 Room Air 11/16/23 11:45 81 16 150/87 H 100 Simple Mask 6 11/16/23 11:40 97 F 90 16 160/92 H 100 Simple Mask 6 11/16/23 10:11 98.2 F 78 16 149/89 H 100 Room Air Anesthesia: Monitored Mental Status: Awake Pain Control: Satisfactory Nausea/Vomiting: None Hydration: Adequate Anesthesia-Related Issues: No Anes. Related Issues
[2023-11-16 12:10] VITALS: BP 163/84; PULSE 87; RESP 16; TEMP 36.1; O2SAT 100
--- NOTE | 2023-11-16 12:27 | OP_ITS ---
DATE OF SERVICE: 11/16/2023 SURGEON: Hank Stanford MD INDICATIONS: The patient presents for evaluation of followup for erosive esophagitis. Full consent was obtained from him for this, including risks of bleeding and perforation. PREOPERATIVE DIAGNOSIS: POSTOPERATIVE DIAGNOSIS: PROCEDURE PERFORMED: Esophagogastroduodenoscopy with biopsies. ESTIMATED BLOOD LOSS: COMPLICATIONS: ANESTHESIA: Monitored anesthesia care converted to general anesthesia due to evidence of retained food in the stomach. ASSISTANTS: SPECIMENS: Pat Toure NP. PREOPERATIVE DIAGNOSES: History of esophagitis and gastroesophageal reflux. POSTOPERATIVE DIAGNOSES: History of esophagitis and gastroesophageal reflux, healed esophagitis, rule out Grigsby esophagus, small hiatal hernia, mild gastric retention, gastritis. DESCRIPTION OF PROCEDURE: The patient was placed in the left lateral decubitus position. The Olympus video gastroscope was passed in the posterior oropharynx and upper esophagus under direct vision. The scope was passed slowly into the distal esophagus. The gastroesophageal junction appeared at 39 cm. There was no evidence of any esophagitis. However, at this level were small areas of possible Grigsby mucosa, but without any inflammation nor any lesions. The scope entered the stomach. There was a small amount of retained old food and therefore the scope was withdrawn from the patient. At that point, he was intubated and the case proceeded. The scope was readvanced back into the posterior oropharynx and upper esophagus under direct vision. The scope was passed to the distal esophagus and the stomach entered. The scope was advanced to pylorus. The duodenum was cannulated to the 2nd and 3rd portions. The duodenum including the bulb appeared normal. The scope was withdrawn back in the stomach. The gastric antrum and body had some areas of erythema and edema, but no erosions or ulceration. The peristalsis was somewhat subjectively diminished. The scope was retroflexed visualizing the proximal stomach carefully, which appeared normal, without mass or ulceration, although a small area was obscured by the retained food. The scope was straightened. Biopsies were obtained from the gastric antrum. The scope was withdrawn back in the esophagus. Biopsies were obtained at the EG junction at 39 cm. Proximal to this, the esophageal mucosa appeared normal. The scope was withdrawn from the patient. He tolerated the procedure well and was returned to recovery area in stable condition. IMPRESSION: 1. Healed esophagitis, rule out Grigsby esophagus. 2. Small hiatal hernia. 3. Gastritis. 4. Mild gastric retention. PLAN: The results of biopsy will be checked. He reports that he is symptomatically doing well on his daily omeprazole. I did advise him to continue that long-term. He is diabetic, and I suspect he might have some component of gastroparesis. However at this point, he is doing well and given the only minimal amount of food seen, I do not think he needs a gastric emptying study at this time. If things are well, he will see me on a p.r.n. basis. If there is evidence of Grigsby esophagus without dysplasia, I would recommend a repeat upper endoscopy in 3 years as well. He was advised not to use any aspirin or NSAIDs for 1 week. This has been discussed with his mother. MD ERENDIRA Fisher/SUNDAR / [phone]
== END 2023-11-16 12:24 | disposition home or self-care (01) ==
PROVIDERS: PCP Nurse Practitioner Family; Visit Provider Internal Medicine
PROC: 0DJ08ZZ Inspection of Upper Intestinal Tract, Via Natural or Artificial Opening Endoscopic (ICD-10-PCS; CPT 43235; principal; 2023-11-16 10:40)
DX: K21.9 Gastro-esophageal reflux disease without esophagitis (principal); K29.60 Other gastritis without bleeding; K31.84 Gastroparesis; K44.9 Diaphragmatic hernia without obstruction or gangrene; E10.649 Type 1 diabetes mellitus with hypoglycemia without coma; Z96.41 Presence of insulin pump (external) (internal); E55.9 Vitamin D deficiency, unspecified; R79.89 Other specified abnormal findings of blood chemistry; F32.A Depression, unspecified; Z79.4 Long term (current) use of insulin; Z79.51 Long term (current) use of inhaled steroids; Z79.899 Other long term (current) drug therapy; Z88.8 Allergy status to other drugs, medicaments and biological substances; F12.90 Cannabis use, unspecified, uncomplicated; F19.11 Other psychoactive substance abuse, in remission; F10.11 Alcohol abuse, in remission; F17.210 Nicotine dependence, cigarettes, uncomplicated
CPT/HCPCS: 43239; 88305; 88313; 88342; J1596; J2405; J2704; J2765

== ENCOUNTER 2023-11-25 19:13 | Emergency (ER) | payer MEDICAID, SELFPAY ==
[2023-11-25 20:02] VITALS: BP 122/78; PULSE 115; RESP 18; TEMP 36.1; O2SAT 99; BMI 21.8
--- NOTE | 2023-11-25 20:03 | ED_ITS ---
HPI - General Adult General Chief complaint: Nausea/Vomiting/Diarrhea Stated complaint: back spasms, vomiting, hx esophagitis Time Seen by Provider: 11/26/23 00:08 Source: patient Mode of arrival: ambulatory Limitations: no limitations History of Present Illness HPI narrative: 48 yo male with PMH of depression, ETOH abuse, IDDM, esophagitis compliant with his PPI states he ate [employer] on Thursday and now has belching, burning and n/v. He states he thinks his esophagus is acting up. He denies diarrhea. Hx of same in past states he is not drinking MD complaint: n/v Onset (ago): day(s) (since Thursday) Location: abdomen Radiation: non-radiation Severity: moderate Quality: burning and aching Pain Consistency: constant Relieving factors: none Exacerbating factors: eating Associated symptoms: loss of appetite, malaise and nausea/vomiting Related Data Home Medications Medication Instructions Recorded Confirmed clonazepam 0.5 mg tablet 0.5 mg PO BID PRN Anxiety 07/16/21 11/12/23 cholecalciferol (vitamin D3) 50 100 mcg PO DAILY 08/10/21 05/27/23 mcg (2,000 unit) capsule clonidine HCl 0.1 mg tablet 1 tab PO DAILY 08/10/21 11/12/23 lisinopril 5 mg tablet 5 mg PO DAILY 10/30/22 11/12/23 fluticasone 250 mcg-salmeterol 50 1 ea inhalation BID 02/19/23 11/12/23 mcg/dose blistr powdr for inhalation (Advair Diskus) fluticasone propionate 50 1 spray intranasal DAILY 02/19/23 11/12/23 mcg/actuation nasal spray,suspension Previous Rx's Medication Instructions Recorded insulin syringe-needle U-100 0.3 #150 ea 08/29/20 mL 29 gauge x 1/2 (BD Insulin Syringe) pen needle, diabetic 32 gauge x #50 ea 08/29/20 5/32 (BD Felisha 2nd Gen Pen Needle) acetone (urine) test (Ketostix #50 ea 10/08/21 strips) 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 meter (FreeStyle #1 ea 10/22/22 Lite Meter kit) omeprazole 20 mg capsule,delayed 20 mg PO BID@0630,1630 #60 caps 01/16/23 release blood sugar diagnostic (FreeStyle #300 ea 02/19/23 Lite Strips) lancets 28 gauge (FreeStyle #100 ea 02/19/23 Lancets) Humalog U-100 Insulin 100 unit/mL 100 unit subcut DAILY #30 mL 04/24/23 subcutaneous solution (insulin lispro) glucagon 3 mg/actuation nasal 3 mg intranasal ONCE #2 ea 05/27/23 spray (Baqsimi) ondansetron 4 mg disintegrating 4 mg PO DAILY PRN nausea and 06/20/23 tablet vomiting 5 days #10 tabs ondansetron 4 mg disintegrating 4 mg PO Q8H 3 days #9 tabs 07/18/23 tablet Allergies Allergy/AdvReac Type Severity Reaction Status Date / Time hydroxyzine [From VISTARIL] Allergy Intermediate RASH, Verified 11/25/23 20:01 ANXIOUS quetiapine [Seroquel] AdvReac Intermediate Unknown Verified 11/25/23 20:01 Review of Systems 2 Review of Systems: Constitutional : No Weight loss, No Fever, No Chills ENT/Mouth : No sore throat, No Rhinorrhea Eyes: No Swelling, No Redness Cardiovascular : No Chest Pain, No SOB, NoEdema Respiratory : No Cough, No Sputum, No Wheezing Gastrointestinal : Positive Nausea, Positive Vomiting, no Diarrhea, positive abdominal Pain, No Hematochezia, No Melena Genitourinary : No Dysuria, No Urinary Frequency, No Hematuria, No Urgency Musculoskeletal : No joint pain, No Myalgias, No Joint Swelling Skin : No Skin Lesions, No rash Neuro : No Weakness, No Numbness, No Dizziness, No Headache Psych : No Anxiety/Panic, No Depression Heme/Lymph: No Bruising, No Lymphadenopathy Endocrine : No Polyuria, No Polydipsia All other systems reviewed and are negative. [facility] Past Medical History Attestation statement: The following information was validated with the patient. 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 Mother No problems noted. Social History Social History Household Members: Family Household Members Other:: mother Housing: House Do you presently have visiting nurse or other home services: No Alcohol intake: former Patient Tobacco Use Status: Current everyday Tobacco user Tobacco use type: Cigarette Cigarettes Per Day: 3 Smoked in Last 30 Days: Yes Use of substances other than those prescribed or required for medical reasons: Yes Substance Use Type: Marijuana Substance Use Frequency: Daily Advance Directives: Yes Advance Directives on File: Yes Advance Directives Date on File: 08/29/20 service: No Current occupational status: unemployed Physical Exam ED Vital Signs: Vital Signs - 24 hr 11/25/23 20:02 11/26/23 01:22 11/26/23 03:56 Temperature 97 F 98.3 F 97.7 F Pulse Rate 115 H 85 78 Respiratory Rate 18 14 14 Blood Pressure 122/78 133/65 125/76 Pulse Oximetry 99 95 98 Oxygen Delivery Method Room Air Room Air Room Air 11/26/23 06:21 Temperature 98.1 F Pulse Rate 82 Respiratory Rate 14 Blood Pressure 143/77 H Pulse Oximetry 98 Oxygen Delivery Method Room Air BMI result Body Mass Index 21.8 Appearance: Alert. Oriented X3. mild acute distress. Active dry heaving Eyes: Pupils equal, round and reactive to light. ENT: Pharynx dry MM Neck: Normal inspection. Neck supple. CVS: Normal heart rate and rhythm. Pulses normal. Respiratory: No respiratory distress. Breath sounds normal. Abdomen: Soft and nontender. Skin: Skin warm and dry. Normal skin color. Normal skin turgor. Extremities: No lower extremity edema. No calf ttp Neuro: Oriented X 3. No motor deficit. No sensory deficit. Course Course Course Narrative: Patient complains of vomiting for the past 2 days, as well as a flare of his back pain, as well as epigastric pain Patient has history and past of pancreatitis and esophagitis, past history of alcohol dependence, says he does not drink now Labs are ordered This is rapid medical exam done in triage pending full evaluation and disposition from ER provider Reevaluation(s) Reevaluation #1: + ALCOHOL LEVEL IN someone not drinking Reevaluation #2: signed out to Tanya STILES pending waking up and PO challenge Reevaluation #3: The patient was signed out to me by the previous emergency physician. The patient slept for several hours during the overnight shift. On waking the patient said they felt somewhat better. The patient was given a dose of liquid sucralfate and felt better still. The patient will be discharged to continue current medications and follow up with his regular doctor. Time: 07:12 Medications Administered Generic Name Dose Route Start Last Admin Trade Name Freq PRN Reason Stop Dose Admin Sodium Chloride 1,000 mls @ 999 mls/hr 11/26/23 06:45 11/26/23 06:52 Ns IV 11/26/23 07:45 999 mls/hr .Q1H1M ASHLEIGH Administration Discontinued Medications Generic Name Dose Route Start Last Admin Trade Name Freq PRN Reason Stop Dose Admin Droperidol 1.25 mg 11/26/23 00:10 11/26/23 00:46 Droperidol 5 Mg/2 Ml Vial IVPUSH 11/26/23 00:11 1.25 mg ONCE ONE Administration Sodium Chloride 1,000 mls @ 999 mls/hr 11/26/23 00:15 11/26/23 01:54 Ns IV 11/26/23 01:15 Infused .Q1H1M ASHLEIGH Infusion Potassium Chloride 10 meq in 100 mls @ 100 mls/hr 11/26/23 00:30 11/26/23 03:05 Potassium Chloride/H20 IV 11/26/23 02:29 Infused Q1H ASHLEIGH Infusion Sodium Chloride 1,000 mls @ 999 mls/hr 11/26/23 01:30 11/26/23 03:24 Ns IV 11/26/23 02:30 Infused .Q1H1M ASHLEIGH Infusion Pantoprazole Sodium 40 mg 11/26/23 00:10 11/26/23 00:46 Pantoprazole Sodium 40 Mg/10 Ml Vial IVPUSH 11/26/23 00:11 40 mg ONCE ONE Administration Sucralfate 2 gm 11/26/23 06:31 11/26/23 06:50 Sucralfate Oral Suspension 1 Gm/10 Ml Oral.Susp PO 11/26/23 06:32 2 gm ONCE ONE Administration Medical Decision Making Medical Decision Making MDM Narrative: 48 yo male with PMH of depression, ETOH abuse, IDDM, esophagitis here with c/o n/v and epigastric pain hx of same in past - chronic WBC count, chronic bump in LFTs - at this time will order IVF, IV K, EKG, mag level, ETOH level, IVF and IV protonix/droperidol. Likely gastritis, ETOH use, gastroparesis Differential Diagnosis Differential Diagnoses: The differential diagnosis associated with the presentation includes gastritis, ETOH use, gastroparesis Admission/Observation Consideration of admission/observation: Escalation of care including admission/observation considered Lab Data MDM Lab Attestation statement: I reviewed the patient's lab results. 11/25/23 20:16 11/25/23 20:16 Labs: Lab Results 11/25/23 Range/Units 20:16 WBC 15.0 H (4.8-10.8) X10*3/uL RBC 4.65 (4.60-5.80) X10*6/uL Hgb 16.9 (14.0-18.0) g/dl Hct 47.1 (42.0-52.0) % MCV 101.3 H (80.0-98.0) fL MCH 36.3 H (27.0-33.0) pg MCHC 35.9 (31.0-36.0) g/dl RDW 11.9 (11.0-16.0) % Plt Count 208 (160-400) X10*3/uL MPV 10.5 (9.4-12.4) fL Immature Gran % (Auto) 0.4 (0.0-0.4) % Neut % (Auto) 78.6 H (45-73) % Lymph % (Auto) 11.1 L (20-40) % [place] % (Auto) 9.3 (2-11) % Eos % (Auto) 0.3 (0-4) % Baso % (Auto) 0.3 (0-2) % Lymph # (Auto) 1.7 (1.2-4.9) X10*3/uL [place] # (Auto) 1.4 H (0.1-1.2) X10*3/uL Eos # (Auto) 0.0 (0.0-0.4) X10*3/uL Baso # (Auto) 0.1 (0.0-0.2) X10*3/uL Abs Immat Gran (auto) 0.06 H (0.00-0.03) X10*3/uL Absolute Neuts (auto) 11.8 H (2.0-8.3) x10*3/uL Absolute Nucleated RBC 0.000 (0.0-0.012) X10*3/uL Nucleated RBC % (auto) 0.0 (0.0-0.2) /100WBC Sodium 143 (135-145) mmol/L Potassium 3.2 L (3.3-5.1) mmol/L Chloride 91 L (96-108) mmol/L Carbon Dioxide 36 H (22-29) mmol/L Anion Gap 19 (12-20) BUN 20 H (9-16) mg/dL Creatinine 1.07 (0.5-1.4) mg/dL Estim Creat Clear Calc 83.5 Estimated GFR > 60 Random Glucose 90 (60-115) mg/dL Calcium 10.5 H D (8.4-10.2) mg/dL Magnesium 2.1 (1.6-2.6) mg/dL Total Bilirubin 0.8 (0.0-1.0) mg/dL Direct Bilirubin 0.4 (0.0-0.5) mg/dL AST 119 H (5-37) U/L ALT 68 H (0-40) U/L Alkaline Phosphatase 184 H (39-117) U/L C-Reactive Protein 0.14 (< or = 0.50) mg/dL Total Protein 7.0 (6.5-8.0) g/dL Albumin 3.8 (3.5-5.0) g/dL Lipase 6 L (8-78) U/L Ethyl Alcohol 66 mg/dL Independent Interpretation I performed an independent interpretation of an: EKG Interpretation: Rate: 84 Rhythm: NSR Peck: normal Normal P waves. Normal SHANNEN. Normal QRS complex. ST T wave : normal no CANDI qTC: 489 prior studies:no acute ischemia The study has been interpreted contemporaneously by me. . External Record Review External record reviewed: Inpatient record Discharge Plan Discharge Clinical Impression: Acute hypokalemia, Esophagitis, Elevated liver enzymes, Alcohol use disorder Vomiting Qualifiers: Vomiting type: unspecified Nausea presence: with nausea Qualified Code(s): R 11.2 - Nausea with vomiting, unspecified Patient Disposition: Home, Self-Care Instructions: Hypokalemia (ED), Abuse of Alcohol (ED), Acute Nausea and Vomiting (ED), Esophagitis (ED) Additional Instructions: I think your major symptoms today were probably related to acid reflux. Please make sure that you take your omeprazole. Alcohol can be very bad for any stomach acid related problems. Please make sure you avoid alcohol. Please follow-up soon with your regular doctor. Return to the emergency room if worse. Prescriptions: No Action (DME) insulin syringe-needle U-100 [BD Insulin Syringe] 0.3 mL 29 gauge x 1/2 syringe See Rx Instructions .ROUTE .MEDSUPPLY Qty: 150 5RF Rx Instructions: 4 times a day (DME) pen needle, diabetic [BD Felisha 2nd Gen Pen Needle] 32 gauge x needle See Rx Instructions .ROUTE .MEDSUPPLY Qty: 50 4RF Rx Instructions: once a day (DME) Ketostix Strip See Rx Instructions .Route Qty: 50 6RF Rx Instructions: As directed (DME) 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 meter [FreeStyle Lite Meter] Kit See Rx Instructions .Route Qty: 1 0RF Rx Instructions: As directed-checks 4 X/day insulin lispro [Humalog U-100 Insulin] 100 unit/mL solution 100 unit subcut DAILY Qty: 30 4RF clonidine HCl 0.1 mg tablet 1 tab PO DAILY cholecalciferol (vitamin D3) 50 mcg (2,000 unit) capsule 100 mcg PO DAILY ondansetron 4 mg tablet,disintegrating 4 mg PO DAILY PRN (Reason: nausea and vomiting) 5 Days Qty: 10 0RF ondansetron 4 mg tablet,disintegrating 4 mg PO Q8H 3 Days Qty: 9 0RF omeprazole 20 mg Capsule,Delayed Release(Dr/Ec) 20 mg PO BID@0630,1630 Qty: 60 0RF clonazepam 0.5 mg tablet 0.5 mg PO BID PRN (Reason: Anxiety) (DME) FreeStyle Lite Strips Strip See Rx Instructions .ROUTE .MEDSUPPLY Qty: 300 11RF Rx Instructions: 4x daily (DME) lancets [FreeStyle Lancets] 28 gauge misc See Rx Instructions .Route Qty: 100 5RF Rx Instructions: As directed 4 X/day fluticasone propion-salmeterol [Advair Diskus] 250-50 mcg/dose blister with device 1 ea inhalation BID fluticasone propionate 50 mcg/actuation spray,suspension 1 spray intranasal DAILY lisinopril 5 mg tablet 5 mg PO DAILY Baqsimi 3 mg/actuation spray,non-aerosol 3 mg intranasal ONCE Qty: 2 5RF Referrals: Linda Carrasquillo NP [Primary Care Provider] - (Acid reflux/esophagitis in a type 1 diabetic) Stand Alone Forms: Work/School Release
[2023-11-25 20:22] LABS: MANUAL DIFF FLAG NO
[2023-11-25 20:24] LABS: Basophils Absolute Auto 0.1 X10*3/uL (0.0-0.2); Basophils Percent Auto 0.3 % (0-2); Eosinophils Percent Auto 0.3 % (0-4); Hematocrit 47.1 % (42.0-52.0); Hemoglobin 16.9 g/dl (14.0-18.0); Imm Gran Abs Auto 0.06 X10*3/uL (0.00-0.03); Imm Gran Pct Auto 0.4 % (0.0-0.4); Lymphocytes Absolute Auto 1.7 X10*3/uL (1.2-4.9); Lymphocytes Percent Auto 11.1 % (20-40); Mean Corpuscular HGB Conc 35.9 g/dl (31.0-36.0); Mean Corpuscular Hemoglobin 36.3 pg (27.0-33.0); Mean Corpuscular Volume 101.3 fL (80.0-98.0); Mean Platelet Volume 10.5 fL (9.4-12.4); Monocytes Absolute Auto 1.4 X10*3/uL (0.1-1.2); Monocytes Percent Auto 9.3 % (2-11); Neutrophils Absolute Auto 11.8 x10*3/uL (2.0-8.3); Neutrophils Percent Auto 78.6 % (45-73); Platelet Count 208 X10*3/uL (160-400); Red Blood Count 4.65 X10*6/uL (4.60-5.80); Red Cell Distribution Width 11.9 % (11.0-16.0)
[2023-11-25 20:40] LABS: Alanine Aminotransferase 68 U/L (0-40); Albumin Level 3.8 g/dL (3.5-5.0); Alkaline Phosphatase 184 U/L (39-117); Anion Gap 19 (12-20); Aspartate Amino Transferase 119 U/L (5-37); Bilirubin Direct 0.4 mg/dL (0.0-0.5); Bilirubin Total 0.8 mg/dL (0.0-1.0); Blood Urea Nitrogen 20 mg/dL (9-16); Calcium 10.5 mg/dL (8.4-10.2); Carbon Dioxide 36 mmol/L (22-29); Chloride 91 mmol/L (96-108); Creatinine Clr Calc Pharmacy 83.5; Estimated Glomerular Filt Rate > 60; Glucose Random 90 mg/dL (60-115); Lipase 6 U/L (8-78); Potassium 3.2 mmol/L (3.3-5.1); Sodium 143 mmol/L (135-145)
--- NOTE | 2023-11-26 00:10 | ECG_ITS ---
Test Reason : QTC CHECK Blood Pressure : / mmHG Vent. Rate : 084 BPM Atrial Rate : 084 BPM P-R Int : 156 ms QRS Dur : 098 ms QT Int : 414 ms P-R-T Axes : 079 074 074 degrees QTc Int : 489 ms Normal sinus rhythm Prolonged QT Abnormal ECG When compared with ECG of 14-JAN-2023 09:52, No significant change was found Referred By: Sharmila Olvera Electronically Signed By:Enrrique Noel
[2023-11-26 00:32] LABS: Ethanol 66 mg/dL; Magnesium 2.1 mg/dL (1.6-2.6)
[2023-11-26] MEDS: Potassium Chloride/H20 10 MEQ/100 ML PIGGYBACK 100 MEQ IV ×2 (00:46→02:01)
[2023-11-26] MEDS: droPERidol 5 MG/2 ML VIAL 1.25 MG IVPUSH (00:46)
[2023-11-26] MEDS: 0.9 % Sodium Chloride 1,000 ML 999 ML IV ×3 (00:46→06:52)
[2023-11-26] MEDS: Pantoprazole Sodium 40 MG/10 ML VIAL IVPUSH (00:46)
[2023-11-26 01:22] VITALS: BP 133/65; PULSE 85; RESP 14; TEMP 36.8; O2SAT 95
[2023-11-26 03:56] VITALS: BP 125/76; PULSE 78; RESP 14; TEMP 36.5; O2SAT 98
[2023-11-26 06:21] VITALS: BP 143/77; PULSE 82; RESP 14; TEMP 36.7; O2SAT 98
--- NOTE | 2023-11-26 06:28 | PC.NURSE ---
Patient water with crackers tolerated well,no nausea/vomiting.
[2023-11-26 06:45] LABS: C Reactive Protein 0.14 mg/dL (< or = 0.50)
[2023-11-26] MEDS: Sucralfate Oral Suspension 1 GM/10 ML ORAL.SUSP 2 GM PO (06:50)
== END 2023-11-26 08:23 | disposition home or self-care (01) ==
PROVIDERS: Emergency Medicine; Physician Assistant Medical; Emergency Provider Emergency Medicine; PCP Nurse Practitioner Family
DX: E87.6 Hypokalemia (principal); K20.90 Esophagitis, unspecified without bleeding; F10.10 Alcohol abuse, uncomplicated; Y90.3 Blood alcohol level of 60-79 mg/100 ml; R79.89 Other specified abnormal findings of blood chemistry; R11.2 Nausea with vomiting, unspecified; E10.9 Type 1 diabetes mellitus without complications; F17.210 Nicotine dependence, cigarettes, uncomplicated; Z79.4 Long term (current) use of insulin; Z79.899 Other long term (current) drug therapy
CPT/HCPCS: 36415; 80048; 80076; 80307; 83690; 83735; 85025; 86140; 93005; 96361; 96374; 96375; 99285; C9113; J1790; J3480

== ENCOUNTER → 2023-11-26 00:10 | Outpatient (BNV) | payer MEDICAID, SELFPAY | PROVIDERS: Emergency Provider Emergency Medicine; PCP Nurse Practitioner Family; Visit Provider Internal Medicine Cardiovascular Disease | DX: I45.81 Long QT syndrome (principal) | CPT/HCPCS: 93010 ==

== ENCOUNTER 2023-12-17 08:55 | Outpatient (AMB) | payer MEDICAID, SELFPAY ==
--- NOTE | 2023-12-17 08:56 | A.OFFVIS_ITS ---
Intake Vital Signs 12/17/23 09:00 Height 5 ft 11 in Weight 159 lb 6.307 oz BMI 22.2 BP 156/84 H Blood Pressure Location Lt brachial Position Sitting Pulse 94 Pulse Source Pulse Oximeter Intake Visit Reasons: f/u Type 1 DM-confirmed Intake Note: Patient presents today to follow up on D1MT. Last Diabetic Eye exam: 03/2023 Last Podiatry Visit: Doesn't have one. Random Glucose: 90 mg/dl HgA1c: 5.5% Filament Shaper Required: No Accompanied by: Self / Same As Patient Allergies hydroxyzine [From VISTARIL] Allergy (Intermediate, Verified 12/17/23 09:09) RASH, ANXIOUS quetiapine [Seroquel] Adverse Reaction (Intermediate, Verified 12/17/23 09:09) Unknown HPI HPI Comments History of Present Illness Details Patient is a 48 year old male with DM type 1 diagnosed at age 32 who presents for management of diabetes.. Since then he has met with the diabetes care and education associate various occasion and has been upgraded to Control IQ. . Today patient reports he is feeling w ell. Unfortunately, pump and sensor information can not be downloaded today Basal rate(s) (units/hour) : 12 AM? to 6 AM? 0.75 units / hr 6 AM to 12 PM ? 1.75 units / hr 12 PM? to 6 PM?1.75 units / hr 6 PM to 12 AM ? 0.5 units / hr Bolus setting Insulin Carbohydrate Ratio (s)\ 12 AM to 12 PM 1:14?New 6 AM- 12 PM 1:10 Correction Factor / Sensitivity Factor 12 AM? to 12 AM? 1:55 Active Insulin Time:? 3 hours Target(s): Control IQ 12 AM? to 12 AM? 110 mg/dL When not in control IQ 12 AM? to 12 AM? 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: denies Dental exam: week ago, goes every 6 months Ophthalmology evaluation: has appt in March denies retinopathy Other specialists: saw associate professor of musicology Laboratory Tests 03/18/21 07/16/21 08/10/21 09:50 10:14 06:14 Creatinine 0.72 Estimated GFR > 60 Fasting Glucose 199 H Hgb A1c (Clinic) 5.9 C-Peptide 08/10/21 06:14 Creatinine Estimated GFR Fasting Glucose Hgb A1c (Clinic) C-Peptide < 0.10 L 03/18/21 03/18/21 03/18/21 09:50 09:50 09:50 Creatinine 1.06 Estimated GFR > 60 Hgb A1c (Clinic) Triglycerides 130 Cholesterol 169 LDL Cholesterol Di rect 32 LDL Cholesterol, C alc 25 HDL Cholesterol 118 25-OH Vitamin D To ness 15.6 TSH 0.76 Free T4 1.07 Microalb/Creat Rat io 4.9 03/18/21 15:28 Creatinine Estimated GFR Hgb A1c (Clinic) 5.9 Triglycerides Cholesterol LDL Cholesterol Di rect LDL Cholesterol, C alc HDL Cholesterol 25-OH Vitamin D To ness TSH Free T4 Microalb/Creat Rat io PFSH Medical History Polysubstance abuse Osteoarthritis Type 1 diabetes History of drug abuse Depression Vitamin D deficiency 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 Mother No problems noted. Social History Household Members: Family Household Members Other:: mother Housing: House Do you presently have visiting nurse or other home services: No Alcohol intake: former Patient Tobacco Use Status: Current everyday Tobacco user Tobacco use type: Cigarette Cigarettes Per Day: 3 Substance Use Type: Marijuana Advance Directives Date on File: 08/29/20 service: No Current occupational status: unemployed Physical Exam Vital Signs: Last Vital Signs Pulse 94 12/17/23 09:00 BP 156/84 H 12/17/23 09:00 BMI result Body Mass Index 22.2 Absence of Cushingoid features. Absence of acromegalic features. Neck exam reveals nl size thyroid about 15 gms. No thyroid nodules palpable. No carotid bruits present. Lungs CTA. Heart S1 S2, Reg R/R. No M/R/ G. Skin exam reveals absence of vitiligo or acanthosis nigricans. Abdominal exam reveals Soft NT/ND with NA BS. No organomegaly present. Extrem Other: Visual exam of foot performed. No ulcerations or open lesions. No onchomycosis, no callouses.Pulses 2 + distally. Sensation intact to monofilament exam. Vibratory sensation sensed 10 seconds in right, 10 seconds in left with 128 Hz tuning fork Results AMB Hemoglobin A1c AMB Hemoglobin A1c 5.5 % Last Edit by OSMAN Lozada on 12/17/23 09:23 Results Reviewed Results Reviewed: Laboratory Last Values Glucose (Clinic) 90 mg/dL (60-115) 12/17/23 09:11 Assessment & Plan Assessment & Plan (1) Diabetes type 1, uncontrolled: Code(s): E10.65 - Type 1 diabetes mellitus with hyperglycemia Plan: This is a 48-year-old white male with a history of type 1 diabetes with excellent glycemic control on T-Slim X2 insulin pump with no known microvascularor macrovascular complications. He has excellent glycemic control. Sensor could not be download so changes to the pump could not be made Plan is to have patient follow up with certified adaptive physical educator and view the sensor to make changes if necessary. Will check basic metabolic panel, lipid profile Orders: Orders AMB Hemoglobin A1c Today E10.65 - Type 1 diabetes mellitus with hyperglycemia, Z13.9 - Encounter for screening, unspecified Coding Level of Care Code Est Pt Level 4 (92486) Diagnoses Diabetes type 1, uncontrolled E10.65
[2023-12-17 09:00] VITALS: BP 156/84; PULSE 94; BMI 22.2
[2023-12-17 09:15] LABS: Glucose, Whole Blood 90 mg/dL (60-115)
== END 2023-12-17 09:31 | disposition home or self-care (01) ==
PROVIDERS: PCP Nurse Practitioner Family; Visit Provider Internal Medicine Endocrinology, Diabetes & Metabolism
DX: Z13.9 Encounter for screening, unspecified (principal); E10.65 Type 1 diabetes mellitus with hyperglycemia
CPT/HCPCS: 99214

== ENCOUNTER → 2023-12-17 08:55 | Outpatient (BNVA) | payer MEDICAID, SELFPAY | PROVIDERS: PCP Nurse Practitioner Family; Visit Provider Internal Medicine Endocrinology, Diabetes & Metabolism | DX: Z46.81 Encounter for fitting and adjustment of insulin pump (principal); E10.65 Type 1 diabetes mellitus with hyperglycemia; Z79.4 Long term (current) use of insulin | CPT/HCPCS: 82947; 83036; 99212 ==

== ENCOUNTER 2024-02-02 08:32 | Inpatient (IN) | payer MEDICAID, SELFPAY ==
[2024-02-02] VITALS (7 sets, daily range): BP systolic 92–139; BP diastolic 53–66; PULSE 81–104; RESP 14–23; TEMP 36.4–37.3; O2SAT 91–100; BMI 21.3
--- NOTE | ~2024-02-02 | CT_ITS ---
EXAMINATION: CT ABDOMEN AND PELVIS WITHOUT CONTRAST CLINICAL INFORMATION: Abdominal pain and vomiting. COMPARISON: 06/20/2023 TECHNIQUE: Multidetector volumetric imaging was performed from the superior aspect of the liver through the pubic symphysis. Sagittal and coronal reformatted images were obtained on the technologist's workstation. This CT examination was performed using dose optimization techniques as appropriate, variously including the following: *Automated exposure control *Adjustment of mA and/or kV according to patient size (this includes techniques or standardized protocols for targeted exams where dose is matched to indication/reason for exam; i.e. extremities or head) *Use of iterative reconstruction technique DLP: 437 mGy-cm FINDINGS: LUNG BASES: Small left pleural effusion. Nonspecific distal esophageal wall thickening. LIVER, GALLBLADDER, AND BILIARY TREE: The noncontrast liver is normal in size and contour. No focal hepatic lesion or biliary ductal dilatation is present. The gallbladder is unremarkable with no evidence of radiopaque gallstones, gallbladder wall thickening, or obvious pericholecystic inflammatory changes. PANCREAS: Stranding surrounding the body and tail of the pancreas. No ductal dilatation. No peripancreatic fluid collection. SPLEEN: Unremarkable. ADRENAL GLANDS: Unremarkable. KIDNEYS AND URETERS: The kidneys are symmetric in size. Punctate nonobstructing calculus lower pole left kidney. No hydronephrosis. BLADDER: Mild wall thickening. GASTROINTESTINAL TRACT: Marked gastric wall thickening with heterogeneity along the gastric cardia/fundus. Appearance is concerning for an underlying mass with perigastric stranding. There is stranding in the lesser sac. Small ascites. There is fluid and stranding in the left anterior pararenal space. No small bowel obstruction. Moderate retained stool in the colon. ABDOMINAL WALL: No significant hernia is appreciated. LYMPH NODES: Enlarged gastrohepatic ligament lymph nodes. Enlarged posterior paraesophageal lymph node. VASCULAR: Normal caliber abdominal aorta. PELVIC VISCERA: Unremarkable. OSSEOUS STRUCTURES: No destructive bone lesions. CT/CT abdomen pelvis wo IV con IMPRESSION: Gastric wall thickening particularly along the gastric cardia/fundus. There is stranding in the gastrohepatic ligament, lesser sac, left anterior pararenal space and small ascites. There are enlarged gastrohepatic ligament lymph nodes as well as an enlarged posterior paraesophageal lymph node. Findings are concerning for underlying malignancy. Correlation with direct visualization is advised. There is stranding surrounding the body and tail of the pancreas. No dilatation of the main pancreatic duct. No peripancreatic fluid collection. These changes may be reactive. Advise correlation with pancreatic enzymes. Small left pleural effusion. Findings were reviewed and discussed with Dr. Castro at 1:29 PM on 02/03/2024.
--- NOTE | 2024-02-02 08:42 | ECG_ITS ---
Test Reason : ABDOMINAL PAIN, VOMITTING Blood Pressure : / mmHG Vent. Rate : 087 BPM Atrial Rate : 087 BPM P-R Int : 146 ms QRS Dur : 092 ms QT Int : 424 ms P-R-T Axes : 080 073 071 degrees QTc Int : 510 ms Normal sinus rhythm Prolonged QT Abnormal ECG When compared with ECG of 26-NOV-2023 01:17, Non-specific change in ST segment in Anterior leads Referred By: Sharmila Olvera Electronically Signed By:ROBERT HEAD MD
--- NOTE | 2024-02-02 08:57 | ED_ITS ---
HPI - Abdominal Pain General Chief Complaint: Abdominal Pain Stated Complaint: Abd pain Time Seen by Provider: 02/02/24 08:36 Source: patient, family and old records reviewed Mode of arrival: ambulatory Limitations: no limitations History of Present Illness HPI narrative: 48 yo male with PMH of diabetes, pancreatitis, enterocolitis here with c/o lower abdominal pain nausea vomiting no diarrhea starting Thursday - denies known sick contacts, travel, abx use, food exposures. He notes vomiting did stop yesterday but he has leftover abdominal pain and dizziness when standing - he has GERD and feels weak. MD elicited complaint: abdominal pain Pertinent past history: none Onset (ago): day(s) (Thursday) Pain Consistency: constant Location: LLQ Severity: mild Radiation: none Migration to: no migration Exacerbating factors: eating Relieving factors: nothing Associated symptoms: nausea and vomiting Related Data Home Medications ?Medication ?Instructions ?Recorded ?Confirmed clonazepam 0.5 mg tablet 0.5 mg PO BID PRN Anxiety 07/16/21 11/12/23 cholecalciferol (vitamin D3) 50 100 mcg PO DAILY 08/10/21 05/27/23 mcg (2,000 unit) capsule clonidine HCl 0.1 mg tablet 1 tab PO DAILY 08/10/21 11/12/23 lisinopril 5 mg tablet 5 mg PO DAILY 10/30/22 11/12/23 fluticasone 250 mcg-salmeterol 50 1 ea inhalation BID 02/19/23 11/12/23 mcg/dose blistr powdr for inhalation (Advair Diskus) fluticasone propionate 50 1 spray intranasal DAILY 02/19/23 11/12/23 mcg/actuation nasal spray,suspension Previous Rx's ?Medication ?Instructions ?Recorded insulin syringe-needle U-100 0.3 #150 ea 08/29/20 mL 29 gauge x 1/2 (BD Insulin Syringe) pen needle, diabetic 32 gauge x #50 ea 08/29/20 5/32 (BD Felisha 2nd Gen Pen Needle) acetone (urine) test (Ketostix #50 ea 10/08/21 strips) 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 meter (FreeStyle #1 ea 10/22/22 Lite Meter kit) omeprazole 20 mg capsule,delayed 20 mg PO BID@0630,1630 #60 caps 01/16/23 release blood sugar diagnostic (FreeStyle #300 ea 02/19/23 Lite Strips) lancets 28 gauge (FreeStyle #100 ea 02/19/23 Lancets) glucagon 3 mg/actuation nasal 3 mg intranasal ONCE #2 ea 05/27/23 spray (Baqsimi) ondansetron 4 mg disintegrating 4 mg PO DAILY PRN nausea and 06/20/23 tablet vomiting 5 days #10 tabs ondansetron 4 mg disintegrating 4 mg PO Q8H 3 days #9 tabs 07/18/23 tablet Humalog U-100 Insulin 100 unit/mL 100 unit subcut DAILY #30 mL 12/01/23 subcutaneous solution (insulin lispro) Allergies Allergy/AdvReac Type Severity Reaction Status Date / Time hydroxyzine [From VISTARIL] Allergy Intermediate RASH, Verified 02/02/24 08:40 ANXIOUS quetiapine [Seroquel] AdvReac Intermediate Unknown Verified 02/02/24 08:40 Review of Systems Review of Systems Constitutional : No Weight loss, No Fever, No Chills ENT/Mouth : No sore throat, No Rhinorrhea Eyes: No Swelling, No Redness Cardiovascular : No Chest Pain, No SOB, NoEdema Respiratory : No Cough, No Sputum, No Wheezing Gastrointestinal : Positive Nausea, Positive Vomiting, no Diarrhea, positive abdominal Pain, No Hematochezia, No Melena Genitourinary : No Dysuria, No Urinary Frequency, No Hematuria, No Urgency Musculoskeletal : No joint pain, No Myalgias, No Joint Swelling Skin : No Skin Lesions, No rash Neuro : No Weakness, No Numbness, pos Dizziness, No Headache Psych : No Anxiety/Panic, No Depression All other systems reviewed and are negative. [facility] Past Medical History Attestation statement: The following information was validated with the patient. 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 Mother No problems noted. Social History Social History Household Members: Family Household Members Other:: mother Housing: House Do you presently have visiting nurse or other home services: No Alcohol intake: former Patient Tobacco Use Status: Current everyday Tobacco user Tobacco use type: Cigarette Cigarettes Per Day: 3 Substance Use Type: Marijuana Advance Directives: Yes Advance Directives on File: Yes Advance Directives Date on File: 08/29/20 Do you have a plan to hurt others: No Plan service: No Current occupational status: unemployed Physical Exam ED Vital Signs: Vital Signs - 24 hr 02/02/24 08:36 02/02/24 10:26 02/02/24 11:32 Temperature 97.6 F 98.6 F 99 F Pulse Rate 104 H 83 87 Respiratory Rate 18 15 23 H Blood Pressure 92/64 113/61 112/56 L Pulse Oximetry 100 95 98 Oxygen Delivery Method Room Air Room Air Room Air BMI result Body Mass Index 21.3 Appearance: Alert. Oriented X3. No acute distress. Eyes: Pupils equal, round and reactive to light. ENT: Pharynx mildly dry MM Neck: Normal inspection. Neck supple. CVS: Normal heart rate and rhythm. Pulses normal. Respiratory: No respiratory distress. Breath sounds normal. Abdomen: Soft and nontender. Skin: Skin warm and dry. Normal skin color. Normal skin turgor. Extremities: No lower extremity edema. No calf ttp Neuro: Oriented X 3. No motor deficit. No sensory deficit. Medical Decision Making Medical Decision Making [facility] Narrative: 48 yo male with PMH of diabetes, pancreatitis, enterocolitis here with lower abdominal pain GERD n/v that has improved since getting sick on Thursday now c/o persistent GERD and dizziness since he feels weak at this time denies ETOH abuse will obtain labs, hydrate, IV magnesium, protonix - obtain labs if no improvement or sig lab derangement will consider imaging Differential Diagnosis Differential Diagnoses: The differential diagnosis associated with the presentation includes viral syndrome, gastritis, pancreatitis, food toxicity Admission/Observation Consideration of admission/observation: Escalation of care including admission/observation considered given JACK, hypokalemia will admit for hydration repeat labs Consult Healthcare Provider Management of the patient was discussed with: Hospitalist (will admit) Lab Data [facility] Lab Attestation statement: I reviewed the patient's lab results. 02/02/24 10:23 02/02/24 10:46 Labs: Lab Results 02/02/24 02/02/24 Range/Units 10:23 10:46 WBC 14.2 H (4.8-10.8) X10*3/uL RBC 4.09 L (4.60-5.80) X10*6/uL Hgb 15.4 (14.0-18.0) g/dl Hct 42.2 (42.0-52.0) % MCV 103.2 H (80.0-98.0) fL MCH 37.7 H (27.0-33.0) pg MCHC 36.5 H (31.0-36.0) g/dl RDW 12.1 (11.0-16.0) % Plt Count 159 L (160-400) X10*3/uL MPV 10.7 (9.4-12.4) fL Sodium 138 (135-145) mmol/L Potassium 2.8 L* (3.3-5.1) mmol/L Chloride 87 L (96-108) mmol/L Carbon Dioxide 44 H* D (22-29) mmol/L Anion Gap 10 L (12-20) BUN 48 H (9-16) mg/dL Creatinine 1.74 H (0.5-1.4) mg/dL Estim Creat Clear Calc 50.2 Estimated GFR 42 Random Glucose 170 H (60-115) mg/dL Calcium 7.6 L D (8.4-10.2) mg/dL Magnesium 2.5 (1.6-2.6) mg/dL Total Bilirubin 0.8 (0.0-1.0) mg/dL Direct Bilirubin 0.4 (0.0-0.5) mg/dL AST 55 H (5-37) U/L ALT 45 H (0-40) U/L Alkaline Phosphatase 120 H (39-117) U/L Total Protein 4.9 L (6.5-8.0) g/dL Albumin 2.7 L (3.5-5.0) g/dL Lipase 14 (8-78) U/L Ethyl Alcohol < 10 mg/dL Independent Interpretation I performed an independent interpretation of an: EKG Interpretation: Rate: 87 Rhythm: NSR Rolla: normal Normal P waves. Normal SHANNEN. Normal QRS complex. ST T wave : normal no CANDI qTC: 510 prior studies: no acute ischemia The study has been interpreted contemporaneously by me. . Independent Historian Clinical information obtained from an independent historian. History obtained from or confirmed by: Other External Record Review External record reviewed: Inpatient record Medications Administered Generic Name Dose Route Start Last Admin Trade Name Freq PRN Reason Stop Dose Admin Sodium Chloride 1,000 mls @ 999 mls/hr 02/02/24 11:45 02/02/24 11:36 Ns IV 02/02/24 12:45 999 mls/hr .Q1H1M ASHLEIGH Administration Potassium Chloride 10 meq in 100 mls @ 100 mls/hr 02/02/24 11:45 02/02/24 11:56 Potassium Chloride/H20 IV 02/02/24 15:44 100 mls/hr Q1H ASHLEIGH Administration Discontinued Medications Generic Name Dose Route Start Last Admin Trade Name Freq PRN Reason Stop Dose Admin Lactated Ringer's 1,000 mls @ 999 mls/hr 02/02/24 08:45 02/02/24 10:06 Lr IV 02/02/24 09:45 Infused .Q1H1M ASHLEIGH Infusion Lactated Ringer's 1,000 mls @ 999 mls/hr 02/02/24 08:45 02/02/24 10:06 Lr IV 02/02/24 09:45 Infused .Q1H1M ASHLEIGH Infusion Magnesium Sulfate 2 gm in 50 mls @ 25 mls/hr 02/02/24 09:01 02/02/24 11:32 Magnesium Sulfate/H2o IV 02/02/24 11:00 Infused ONCE ONE Infusion Sodium Chloride 1,000 mls @ 999 mls/hr 02/02/24 10:15 02/02/24 11:22 Ns IV 02/02/24 11:15 Infused .Q1H1M ASHLEIGH Infusion Sodium Chloride 1,000 mls @ 999 mls/hr 02/02/24 10:15 02/02/24 11:22 Ns IV 02/02/24 11:15 Infused .Q1H1M ASHLEIGH Infusion Ondansetron HCl 4 mg 02/02/24 08:48 02/02/24 09:42 Ondansetron Hcl 4 Mg/2 Ml Vial IVPUSH 02/02/24 08:49 4 mg ONCE ONE Administration Pantoprazole Sodium 40 mg 02/02/24 08:48 02/02/24 09:42 Pantoprazole Sodium 40 Mg/10 Ml Vial IVPUSH 02/02/24 08:49 40 mg ONCE ONE Administration Critical Care Time Critical Care Time Critical Care Time: Yes Total Critical Care Time: 60 Attestation: repletion of K, IV magnesium, IVF x 2L, admission I attest to this time spent taking care of the patient Discharge Plan Discharge Clinical Impression: JACK (acute kidney injury), Acute hypokalemia, Prolonged QT interval, Acute dehydration Vomiting Qualifiers: Vomiting type: unspecified Nausea presence: with nausea Qualified Code(s): R 11.2 - Nausea with vomiting, unspecified Patient Disposition: Admitted As Inpatient Print Language: Sri Lankan
[2024-02-02] MEDS: Lactated Ringers 1,000 ML 999 ML IV ×2 (09:05)
[2024-02-02] MEDS: Pantoprazole Sodium 40 MG/10 ML VIAL IVPUSH (09:42)
[2024-02-02] MEDS: Magnesium Sulfate/H2O 2 GM/50 ML PIGGYBACK IV (09:42)
[2024-02-02] MEDS: ondansetron HCL 4 MG/2 ML VIAL IVPUSH ×2 (09:42→23:53)
--- NOTE | 2024-02-02 10:04 | PC.NURSE ---
Pt switched to NS from LR for IV compatibility, placed on residential monitor at this time.
[2024-02-02] MEDS: 0.9 % Sodium Chloride 1,000 ML 999 ML IV ×3 (10:07→11:36)
[2024-02-02 10:31] LABS: Basophils Percent Auto 0.3 % (0-2); Eosinophils Percent Auto 0.1 % (0-4); Hematocrit 42.2 % (42.0-52.0); Hemoglobin 15.4 g/dl (14.0-18.0); Imm Gran Abs Auto 0.09 X10*3/uL (0.00-0.03); Imm Gran Pct Auto 0.6 % (0.0-0.4); Lymphocytes Percent Auto 7.1 % (20-40); MANUAL DIFF FLAG SCAN; Mean Corpuscular HGB Conc 36.5 g/dl (31.0-36.0); Mean Corpuscular Hemoglobin 37.7 pg (27.0-33.0); Mean Corpuscular Volume 103.2 fL (80.0-98.0); Mean Platelet Volume 10.7 fL (9.4-12.4); Monocytes Absolute Auto 2.1 X10*3/uL (0.1-1.2); Monocytes Percent Auto 14.9 % (2-11); Platelet Count 159 X10*3/uL (160-400); Red Blood Count 4.09 X10*6/uL (4.60-5.80); Red Cell Distribution Width 12.1 % (11.0-16.0); SCAN SMEAR FLAG 1; White Blood Count 14.2 X10*3/uL (4.8-10.8)
[2024-02-02 11:26] LABS: Alanine Aminotransferase 45 U/L (0-40); Albumin Level 2.7 g/dL (3.5-5.0); Alkaline Phosphatase 120 U/L (39-117); Anion Gap 10 (12-20); Aspartate Amino Transferase 55 U/L (5-37); Bilirubin Direct 0.4 mg/dL (0.0-0.5); Bilirubin Total 0.8 mg/dL (0.0-1.0); Blood Urea Nitrogen 48 mg/dL (9-16); Calcium 7.6 mg/dL (8.4-10.2); Carbon Dioxide 44 mmol/L (22-29); Chloride 87 mmol/L (96-108); Creatinine Clr Calc Pharmacy 50.2; Estimated Glomerular Filt Rate 42; Ethanol < 10 mg/dL; Glucose Random 170 mg/dL (60-115); Lipase 14 U/L (8-78); Magnesium 2.5 mg/dL (1.6-2.6); Potassium 2.8 mmol/L (3.3-5.1); Sodium 138 mmol/L (135-145); Total Protein 4.9 g/dL (6.5-8.0)
--- NOTE | 2024-02-02 11:54 | PM.IMHP ---
History of Present Illness Date of Service: 02/02/24 Attending physician on admission: Sergo Castro Chief Complaint: n/v 48-year-old male with history of type 1 diabetes, mood disorder, htn, gerd, copd, history of polysubstance abuse presented to the ED for evaluation of lower abdominal pain, nausea, vomiting ongoing for 4 days. No known sick contacts, recent travel, antibiotic use, or food exposures. Denies any fevers, chills, diarrhea, radiation of pain. He reports vomiting subsided about 2 days ago but still has not been able to tolerate much p.o. other than small sips of broth and other clear liquids due to ongoing nausea. He reports positional lightheadedness but denies any syncope. He feels very weak. He uses a Dexcom and insulin pump and denies any hypoglycemic episodes. He has reported similar episodes in the past. He does report daily edible THC use for medicinal purposes but denies any other illicit substances. Reports minimal alcohol intake, last use was about 1 week ago. He smokes about 3 cigarettes on a daily basis. No one at home with similar symptoms. On arrival, vital signs stable. He has a leukocytosis of 14.2. No anemia. Creatinine 1.74, baseline around 1.0. BUN 48. Potassium 2.8, chloride 87, CO2 44. Glucose 170. AST 55, ALT 45, alkaline phosphatase 120. Lipase 14. Ethyl alcohol level undetectable. EKG shows NSR, rate 87, with prolonged QTC of 510. No acute ischemic changes. In the ED, has received 3 L IV NS, 40 mg pantoprazole, 2 g IV magnesium, and is currently receiving 40 mEq of IV potassium chloride. He will be admitted for further management of acute kidney injury secondary to GI losses from intractable nausea and vomiting, question related to cannabis hyperemesis syndrome versus diabetic gastroparesis. Review of Systems Review of Systems: General: No fevers, malaise, unintentional weight loss. +general weakness HEENT: No blurred vision, diplopia. No sore throat, nasal congestion, rhinorrhea, sinus pain, ear pain Cardiovascular: No chest pain, palpitations, or leg edema Respiratory: No shortness of breath, wheezing, cough GI: +abd pain, +naussea, +vomiting. No diarrhea, constipation, melena, hematochezia : No dysuria, hematuria, increased urinary frequency, decreased urinary output MSK: No myalgia, back pain Neuro: No headaches, weakness, paresthesias. +lightheadedness Skin: No rashes or lesions [facility] Medical History Polysubstance abuse Osteoarthritis Type 1 diabetes History of drug abuse Depression Vitamin D deficiency Hypoglycemia unawareness associated with type 1 diabetes mellitus Diabetes type 1, uncontrolled Diabetes Family History Father No problems noted. Mother No problems noted. Surgical History History of esophagogastroduodenoscopy (EGD) H/O colonoscopy Hx of hernia repair Social History Household Members: Family Household Members Other:: mother Housing: House Do you presently have visiting nurse or other home services: No Alcohol intake: former Patient Tobacco Use Status: Current everyday Tobacco user Tobacco use type: Cigarette Cigarettes Per Day: 3 Substance Use Type: Marijuana Advance Directives: Yes Advance Directives on File: Yes Advance Directives Date on File: 08/29/20 Do you have a plan to hurt others: No Plan service: No Current occupational status: unemployed Meds Allergies Allergy/AdvReac Type Severity Reaction Status Date / Time hydroxyzine [From VISTARIL] Allergy Intermediate RASH, Verified 02/02/24 08:40 ANXIOUS quetiapine [Seroquel] AdvReac Intermediate Unknown Verified 02/02/24 08:40 Active Medications: Current Medications Sodium Chloride (Ns) 1,000 mls @ 999 mls/hr IV .Q1H1M ASHLEIGH Stop: 02/02/24 12:45 Last Admin: 02/02/24 11:36 Dose: 999 mls/hr Potassium Chloride (Potassium Chloride/H20) 10 meq in 100 mls @ 100 mls/hr IV Q1H ASHLEIGH Stop: 02/02/24 15:44 Home Medications ?Medication ?Instructions ?Recorded ?Confirmed ?Last Taken ?Type clonazepam 0.5 mg tablet 0.5 mg PO Q48H PRN Anxiety 07/16/21 02/02/24 01/31/24 History clonidine HCl 0.1 mg tablet 1 tab PO DAILY NXIETY 08/10/21 02/02/24 02/01/24 History lisinopril 5 mg tablet 5 mg PO DAILY 10/30/22 02/02/24 02/01/24 History insulin lispro 100 unit/mL See Rx Instructions .Route .COMPLEX 02/02/24 02/02/24 02/02/24 History subcutaneous solution (Humalog U-100 Insulin) Physical Exam Vital Signs and Narrative: Vital Signs: Last Vital Signs Temp 99 F 02/02/24 11:32 Pulse 87 02/02/24 11:32 Resp 23 H 02/02/24 11:32 BP 112/56 L 02/02/24 11:32 Pulse Ox 98 02/02/24 11:32 O2 Del Method Room Air 02/02/24 11:32 BMI result Body Mass Index 21.3 Constitutional - Awake and Alert, No apparent distress Eyes - PERRLA, EOMI Cardiovascular - S1S2, RRR, No edema Respiratory - Normal lung expansion, Normal respiratory effort, No respiratory distress, CTA bilaterally Gastrointestinal - mild diffuse tenderness to palpation without guarding or rebound, nondistended, positive bowel sounds Extremities - no calf tenderness bilaterally, no swelling Skin - Warm/Dry Neurological - Alert & oriented x3, CN II-XII in tact, 5/5 strength BUE and BLE Psychological - Appropriate affect Results Labs 02/02/24 10:23 02/02/24 10:46 Labs: Laboratory Results - last 24 hr 02/02/24 02/02/24 10:23 10:46 MCV 103.2 H MCH 37.7 H MCHC 36.5 H RDW 12.1 Plt Count 159 L MPV 10.7 Anion Gap 10 L Estim Creat Clear Calc 50.2 Estimated GFR 42 Random Glucose 170 H Calcium 7.6 L D Magnesium 2.5 Total Bilirubin 0.8 Direct Bilirubin 0.4 AST 55 H ALT 45 H Alkaline Phosphatase 120 H Total Protein 4.9 L Albumin 2.7 L Lipase 14 Ethyl Alcohol < 10 Assessment and Plan (1) Acute hypokalemia: Status: Acute (2) JACK (acute kidney injury): Status: Acute (3) Vomiting: Qualifiers: Nausea presence: with nausea Vomiting type: unspecified Qualified Code(s): R11.2 - Nausea with vomiting, unspecified Status: Acute (4) Prolonged QT interval: Status: Acute (5) Acute dehydration: Status: Acute Plan 48-year-old male with history of type 1 diabetes, htn, gerd, copd, mood disorder, history of polysubstance abuse # acute kidney injury-likely prerenal in setting of hypovolemia from GI losses -creatinine 1.7, baseline 1.0. BUN 40 -continue IVF -avoid nephrotoxins -monitor INR -follow renal function, lytes #Intractable nausea/vomiting -vomiting now resolved. Question cannabis hyperemesis syndrome versus diabetic gastroparesis -IV antiemetics -continue IVF -clear liquid diet, advance as tolerated -consider GI consult if no improvement #Hypokalemia -due to GI losses -repleted with IV potassium chloride but patient and intolerant. Feels he can tolerate p.o.. Will trial 40 mEq potassium chloride x2 -follow lytes # prolonged QTC -keep magnesium >2.0, K >4.0. Repleted -limit qtc prolonging agents. Unfortunately will liekly require antiemetics, monitor on telemetry # type 1 diabetes-controlled without hyperglycemia -continue patient's home insulin pump- T slim X 2 with Humalog -POC glucose, advanced to diabetic diet # COPD -no acute exacerbation -continue maintenance inhalers, albuterol p.r.n. # mood disorder -continue home meds # hypertension -hold lisinopril in setting of JACK -blood pressure reasonably controlled at this time # GERD -PPI # cigarette smoking -cessation advised -declines replacement therapy DVT prophylaxis-heparin Full code Patient requires inpatient stay at least 2 midnights for management of acute kidney injury and electrolyte abnormality secondary to GI losses requiring IV fluid resuscitation, electrolyte repletion, close monitoring of renal function and electrolytes as well as cardiac monitoring Quality Stroke Does the patient have a stroke diagnosis?: No VTE Prior VTE?: No VTE Risk Level:: Medical - moderate - high VTE Device Contraindication: Treatment Not Indicated VTE Drug Contraindication: N/A - Med Ordered
[2024-02-02] MEDS: Potassium Chloride/H20 10 MEQ/100 ML PIGGYBACK 100 MEQ IV ×2 (11:56→13:09)
[2024-02-02 12:55] LABS: SLIDE REVIEW VERIFIED
[2024-02-02] MEDS: Potassium Chloride Packet 20 MEQ PACKET 40 MEQ PO ×2 (13:13→14:00)
[2024-02-02 13:15] LABS: Appearance Urine Clear; Color Urine Yellow; Glucose Urine UA Negative (Negative); Leukocyte Esterase Urine Trace (Negative); Nitrite Urine Negative (Negative); PH 7.5 (5.0-9.0); UMIC TRIGGER UACC YES; Urine Blood Large (3+) (Negative); Urine Ketones Negative (Negative); Urine Protein 30 (1+) mg/dL (Neg-Trace)
[2024-02-02 13:22] LABS: Amphetamine Screen Urine Not Detected (Not Detect); Barbiturates, Urine Not Detected (Not Detect); Benzodiazepines Screen Urine Not Detected (Not Detect); Buprenorphine Scr Not Detected (Not Detect); Cannabinoid Screen Urine POSITIVE (Not Detect); Cocaine Screen Urine POSITIVE (Not Detect); Fentanyl, urine Not Detected (Not Detect); Methadone Screen, Urine Not Detected (Not Detect); Opiate Screen Urine Not Detected (Not Detect); Oxycodone Screen Urine Not Detected (Not Detect); Phencyclidine Screen Urine Not Detected (Not Detect)
[2024-02-02 13:24] LABS: Bacteria Urine None Seen (None Seen); Granular Casts Urine Present; RBC Urine >20 /HPF (0-2); WBC Urine 0-5 /HPF (0-5)
--- NOTE | 2024-02-02 13:25 | PHA.MEDREC ---
Pharmacy Consult ? Medication Reconciliation Pharmacy has completed the medication reconciliation. Patient reported medications. Adri Brooks, MassimoD
[2024-02-02] MEDS: Heparin Sodium,Porcine 5,000 UNIT/ML VIAL 5000 UNIT SUBCUT ×2 (14:00→23:53)
[2024-02-02] MEDS: 0.9 % Sodium Chloride 1,000 ML 100 ML IVCONT ×2 (14:00→23:52)
[2024-02-02 16:49] LABS: Glucose, Whole Blood 57 mg/dL (60-115)
--- NOTE | 2024-02-02 17:37 | PC.NURSE ---
POC 57, pt has own insulin pump on, pt reporting pump shuts off basal rate after a certain cut off, pt reporting pump did shut itself off, his sugar is now up to 168 after juice and puddings, and will continue is normal basal rate
[2024-02-02] MEDS: 0.9 % Sodium Chloride Flush 3 ML SYRINGE IVFLUSH (17:38)
[2024-02-02 17:41] LABS: Glucose, Whole Blood 168 mg/dL (60-115)
--- NOTE | 2024-02-02 18:47 | MHC.EDTECH ---
THIS TECH TOOK OVER CARE PCT AT 1900
[2024-02-02 19:16] LABS: Anion Gap 12 (12-20); Blood Urea Nitrogen 44 mg/dL (9-16); Calcium 7.6 mg/dL (8.4-10.2); Carbon Dioxide 34 mmol/L (22-29); Chloride 96 mmol/L (96-108); Estimated Glomerular Filt Rate 47; Glucose Random 115 mg/dL (60-115); Magnesium 2.5 mg/dL (1.6-2.6); Potassium 4.1 mmol/L (3.3-5.1); Sodium 138 mmol/L (135-145)
[2024-02-02 20:59] LABS: Glucose, Whole Blood 96 mg/dL (60-115)
[2024-02-02] MEDS: HYDROmorphone HCl 0.5 MG/0.5 ML SYRINGE IVPUSH (23:53)
[2024-02-03] VITALS (10 sets, daily range): BP systolic 126–174; BP diastolic 54–82; PULSE 70–82; RESP 16–20; TEMP 36.4–37.1; O2SAT 95–99; BMI 22.6
--- NOTE | 2024-02-03 | ECG_ITS ---
Test Reason : QT PROLONGATION Blood Pressure : / mmHG Vent. Rate : 073 BPM Atrial Rate : 073 BPM P-R Int : 154 ms QRS Dur : 098 ms QT Int : 444 ms P-R-T Axes : 079 068 071 degrees QTc Int : 489 ms Normal sinus rhythm Prolonged QT Abnormal ECG When compared with ECG of 02-FEB-2024 08:54, No significant change was found Referred By: Sanjeev Olivares Electronically Signed By:ROBERT HEAD MD
--- NOTE | 2024-02-03 02:46 | PC.NURSE ---
resting comfortably with eyes closed. nad. call daniels within reach.
[2024-02-03 07:37] LABS: MANUAL DIFF FLAG NO
[2024-02-03 07:45] LABS: Glucose, Whole Blood 133 mg/dL (60-115)
[2024-02-03 07:51] LABS: Basophils Percent Auto 0.4 % (0-2); Eosinophils Absolute Auto 0.2 X10*3/uL (0.0-0.4); Eosinophils Percent Auto 2.2 % (0-4); Hematocrit 37.5 % (42.0-52.0); Hemoglobin 13.3 g/dl (14.0-18.0); Imm Gran Abs Auto 0.03 X10*3/uL (0.00-0.03); Imm Gran Pct Auto 0.4 % (0.0-0.4); Lymphocytes Absolute Auto 1.1 X10*3/uL (1.2-4.9); Mean Corpuscular HGB Conc 35.5 g/dl (31.0-36.0); Mean Corpuscular Hemoglobin 36.6 pg (27.0-33.0); Mean Corpuscular Volume 103.3 fL (80.0-98.0); Mean Platelet Volume 10.9 fL (9.4-12.4); Monocytes Absolute Auto 1.2 X10*3/uL (0.1-1.2); Monocytes Percent Auto 15.1 % (2-11); Neutrophils Absolute Auto 5.3 x10*3/uL (2.0-8.3); Neutrophils Percent Auto 67.9 % (45-73); Platelet Count 126 X10*3/uL (160-400); Red Blood Count 3.63 X10*6/uL (4.60-5.80); White Blood Count 7.8 X10*3/uL (4.8-10.8)
[2024-02-03 08:06] LABS: Anion Gap 8 (12-20); Blood Urea Nitrogen 36 mg/dL (9-16); Calcium 7.8 mg/dL (8.4-10.2); Carbon Dioxide 37 mmol/L (22-29); Chloride 97 mmol/L (96-108); Creatinine Clr Calc Pharmacy 69.9; Estimated Glomerular Filt Rate > 60; Glucose Random 130 mg/dL (60-115); Potassium 3.1 mmol/L (3.3-5.1); Sodium 139 mmol/L (135-145)
[2024-02-03] MEDS: Subcutaneous Insulin Pump 1 EACH SUBCUT (08:26)
--- NOTE | 2024-02-03 08:41 | PC.NURSE ---
After breakfast pt gave self 2 units for 20g of carbs on tray, states 1 unit per 10g carbs given throughout day. Site Clean dry and intact. Pt remains alert/oriented and well versed on insulin pump
[2024-02-03] MEDS: 0.9 % Sodium Chloride Flush 3 ML SYRINGE IVFLUSH ×2 (10:51→14:28)
[2024-02-03] MEDS: Potassium Chloride Packet 20 MEQ PACKET 40 MEQ PO (10:52)
[2024-02-03] MEDS: 0.9 % Sodium Chloride 1,000 ML 100 ML IVCONT ×2 (10:54→17:56)
[2024-02-03] MEDS: HYDROmorphone HCl 0.5 MG/0.5 ML SYRINGE IVPUSH ×2 (10:57→15:23)
[2024-02-03] MEDS: Heparin Sodium,Porcine 5,000 UNIT/ML VIAL 5000 UNIT SUBCUT (12:39)
--- NOTE | 2024-02-03 13:04 | MHC.CM.PN ---
Pt lives with his mother, Miley, and she is his HCP, which is on file and was confirmed. Pt. does not currently have a PCP, was seeing Linda Neida in [place], but she is no longer there. CM will provide [facility] PCP brochure to pt. Pt does not have home health services, for med equipment, he has diabetic supplies. He is able to get transportation home at [place]. DC plan is home, self care. CM to follow and assist as needed with DC plan.
[2024-02-03 13:22] LABS: Glucose, Whole Blood 91 mg/dL (60-115)
--- NOTE | 2024-02-03 13:29 | P.PNIM_ITS ---
Subjective Subjective Date of Service: 02/03/24 Interval History: Patient complaining of significant abdominal pain. Also states he has been having burning sensation with swallowing. Review of Systems Review of Systems: Yes all other systems are reviewed and are negative Physical Exam 2 Vital Signs: Vital Signs: Last Vital Signs Temp 98.7 F 02/03/24 10:09 Pulse 70 02/03/24 10:09 Resp 18 02/03/24 10:57 BP 126/71 02/03/24 10:09 Pulse Ox 99 02/03/24 10:09 O2 Del Method Room Air 02/03/24 10:09 BMI result Body Mass Index 21.3 Middle-aged male lying in bed in mild distress Neck supple, no JVD Regular rate and rhythm, S1-S2 heard Regular breath sounds bilaterally, no wheezing or crackles appreciated Abdomen with generalized tenderness and mild guarding, no rigidity, no rebound tenderness Patient is awake, alert and oriented to self, place, time and person ; no focal motor deficit Psych: Normal mood No pedal edema Objective Data Active Medications Acetaminophen (Acetaminophen 325 Mg Tablet) 650 mg PO Q6H PRN PRN Reason: Pain, Mild (Pain Scale 1-3) Calcium Carbonate (Calcium Carbonate 750 Mg Tab.Chew) 750 mg PO Q4H PRN PRN Reason: Heartburn Clonazepam (Clonazepam 0.5 Mg Tablet) 0.5 mg PO Q48H PRN PRN Reason: Anxiety Clonidine HCl (Clonidine Hcl 0.1 Mg Tablet) 0.1 mg PO DAILY PRN; Protocol PRN Reason: anxiety Glucose (Glucose Gel 15 Gm Gel..Gram.) 15 gm PO Q15M PRN; Protocol PRN Reason: per Hypoglycemia Standing Ord. Heparin Sodium (Porcine) (Heparin Sodium,Porcine 5,000 Unit/Ml Vial) 5,000 unit SUBCUT Q12H [facility] Last Admin: 02/03/24 12:39 Dose: 5,000 unit Documented By: KAMALJIT Hydromorphone HCl (Hydromorphone Hcl 0.5 Mg/0.5 Ml Syringe) 0.5 mg IVPUSH Q4H PRN; Protocol PRN Reason: Pain, Severe (Pain Scale 7-10) Last Admin: 02/03/24 10:57 Dose: 0.5 mg Documented By: KAMALJIT Sodium Chloride (Ns) 1,000 mls @ 100 mls/hr IVCONT .Q10H [facility] Last Admin: 02/03/24 10:54 Dose: 100 mls/hr Documented By: KAMALJIT Dextrose (D10) 250 mls @ 750 mls/hr IV Q15M PRN; Protocol PRN Reason: per Hypoglycemia Standing Ord. Insulin Pump (Subcutaneous Insulin Pump) 1 each SUBCUT QIDACHS [facility]; Protocol Last Admin: 02/03/24 13:25 Dose: Not Given Documented By: KAMALJIT Non-Admin Reason: No Insulin Coverage Comments: BGL 91, pt did not give himself insulin at this time Omeprazole (Omeprazole 20 Mg Capsule.) 20 mg PO BID@0630,1630 [facility] Last Admin: 02/03/24 07:18 Dose: Not Given Documented By: NORIS Non-Admin Reason: Patient Refused Senna (Sennosides 8.6 Mg Tablet) 17.2 mg PO BEDTIME PRN PRN Reason: Constipation Sodium Chloride (0.9 % Sodium Chloride Flush 3 Ml Syringe) 3 ml IVFLUSH QSHIFT [facility] Last Admin: 02/03/24 10:51 Dose: 3 ml Documented By: KAMALJIT Labs 02/03/24 07:09 02/03/24 07:09 Labs: Laboratory Results - last 24 hr 02/02/24 02/02/24 02/02/24 16:44 17:36 18:49 MCV MCH MCHC RDW Plt Count MPV Immature Gran % (Auto) Neut % (Auto) Lymph % (Auto) [place] % (Auto) Eos % (Auto) Baso % (Auto) Lymph # (Auto) [place] # (Auto) Eos # (Auto) Baso # (Auto) Abs Immat Gran (auto) Absolute Neuts (auto) Absolute Nucleated RBC Nucleated RBC % (auto) Anion Gap 12 Estim Creat Clear Calc 55.0 Estimated GFR 47 POC Glucose 57 L* 168 H Random Glucose 115 Calcium 7.6 L Magnesium 2.5 02/02/24 02/03/24 02/03/24 20:52 07:09 07:41 MCV 103.3 H MCH 36.6 H MCHC 35.5 RDW 12.0 Plt Count 126 L MPV 10.9 Immature Gran % (Auto) 0.4 Neut % (Auto) 67.9 Lymph % (Auto) 14.0 L [place] % (Auto) 15.1 H Eos % (Auto) 2.2 Baso % (Auto) 0.4 Lymph # (Auto) 1.1 L [place] # (Auto) 1.2 Eos # (Auto) 0.2 Baso # (Auto) 0.0 Abs Immat Gran (auto) 0.03 Absolute Neuts (auto) 5.3 Absolute Nucleated RBC 0.000 Nucleated RBC % (auto) 0.0 Anion Gap 8 L Estim Creat Clear Calc 69.9 Estimated GFR > 60 POC Glucose 96 133 H Random Glucose 130 H Calcium 7.8 L Magnesium 02/03/24 13:17 MCV MCH MCHC RDW Plt Count MPV Immature Gran % (Auto) Neut % (Auto) Lymph % (Auto) [place] % (Auto) Eos % (Auto) Baso % (Auto) Lymph # (Auto) [place] # (Auto) Eos # (Auto) Baso # (Auto) Abs Immat Gran (auto) Absolute Neuts (auto) Absolute Nucleated RBC Nucleated RBC % (auto) Anion Gap Estim Creat Clear Calc Estimated GFR POC Glucose 91 Random Glucose Calcium Magnesium Assessment and Plan (1) JACK (acute kidney injury): Status: Acute Plan 48-year-old male with history of type 1 diabetes, htn, gerd, copd, mood disorder, history of polysubstance abuse # acute kidney injury-likely prerenal in setting of hypovolemia from GI losses -improving with IV crystalloids -avoid nephrotoxins # abdominal pain with Intractable nausea/vomiting -imaging concerning for gastritis versus gastric mass. Also inflammation around the pancreas which possibly is reactive -initiating IV Protonix and consulting Gastroenterology. #Hypokalemia -due to GI losses -repleted # prolonged QTC -keep magnesium >2.0, K >4.0. Repleted -limit qtc prolonging agents. Unfortunately will liekly require antiemetics, monitor on telemetry # type 1 diabetes-controlled without hyperglycemia -continue patient's home insulin pump- T slim X 2 with Humalog -POC glucose, advanced to diabetic diet # COPD -no acute exacerbation -continue maintenance inhalers, albuterol p.r.n. # mood disorder -continue home meds # hypertension -hold lisinopril in setting of JACK -blood pressure reasonably controlled at this time # GERD -PPI # cigarette smoking -cessation advised -declines replacement therapy #Polysubstance use disorder UDS positive for cocaine. Consulted Addiction Team DVT prophylaxis-heparin Full code Reason for continued hospitalization: Acute kidney injury requiring monitoring of creatinine and urine output. Significant symptoms requiring IV opiates and IV antiemetics p.r.n.. Specialist consult pending Quality Stroke Does the patient have a stroke diagnosis?: No VTE Prior VTE?: No VTE Risk Level:: Medical - moderate - high VTE Device Contraindication: Treatment Not Indicated VTE Drug Contraindication: N/A - Med Ordered
[2024-02-03] MEDS: Pantoprazole Sodium 40 MG/10 ML VIAL IVPUSH (14:28)
--- NOTE | 2024-02-03 15:57 | MHC.RECOVRN ---
Met with pt in 462 after consult placed to Addiction Medicine for cocaine use. Pt had presented to the ED with n/v and abdominal pain. Upon evaluation, pt admitted for acute hypokalemia, JACK, intractable n/v, prolonged QT interval, and acute dehydration. Pt laying in bed, awake, alert, easily engages in conversation, appears comfortable. 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 Pt reports last alcohol use was 2 weeks ago, had one hard seltzer. 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 Pt also reports involvement with [employer]. Informed pt UDS was positive for cocaine, pt voices surprise. Pt states maybe it was in a joint someone passed around. Discussed harm reduction, risk of fentanyl presence in cocaine. Provided pt with recovery resources and supports, pt plans to continue involvement with meetings and recovery groups. Pt denies questions or concerns for t/w. Discussed with Aura Rosenthal APRN.
[2024-02-03 16:25] LABS: Glucose, Whole Blood 98 mg/dL (60-115)
--- NOTE | 2024-02-03 16:55 | MHC.SHP ---
Pre-Procedural Eval Section A - 24 Hr Update-Section A only Date of Service: 02/03/24 The patient is an INPATIENT: Yes Changes since office visit: No Cold of Flu in the past 2 weeks, No New Medical Problems, No Changes in Medication and No Patient answered all questions The patient has been examined within 24 hours of the surgical procedure. The History & Physical has been completed within 30 days and I have reviewed it.: Yes Section B - Complete if H&P > 30 days Chief Complaint: Obinna,intractable nausea/vomitting Allergies: Allergies Allergy/AdvReac Type Severity Reaction Status Date / Time hydroxyzine [From VISTARIL] Allergy Intermediate RASH, Verified 02/02/24 08:40 ANXIOUS quetiapine [Seroquel] AdvReac Intermediate Unknown Verified 02/02/24 08:40 Plan I have reviewed the history and physical and performed a pertinent physical examination on my patient. No changes have occurred unless specified. Time Spent With Patient Time: Total time managing care of this patient today ____ minutes.
--- NOTE | 2024-02-03 16:56 | PM.EVENT ---
Event Note Date of Service: 02/03/24 Event Note: GI pt seen and examined consult dictated EGD tomorrow for further evaluation of symptoms and abnormal ct scan. Time Spent With Patient Time: Total time managing care of this patient today ____ minutes.
--- NOTE | 2024-02-03 17:38 | CONS_ITS ---
DATE OF SERVICE: 02/03/2024 REFERRING PHYSICIAN: Sergo Castro MD REASON FOR CONSULTATION: Nausea and vomiting, abdominal pain, and abnormal CT scan. HISTORY OF PRESENT ILLNESS: Edu is a pleasant 48-year-old man, who was admitted to the hospital on 02/01 with complaints of abdominal pain, nausea, and vomiting. He became ill 4 days prior to admission when he developed gradual onset of nausea, vomiting, and general malaise. This waxed and waned for several days, but he reached a point where he was unable to tolerate solid food and became dehydrated and came to the hospital. He denies any fevers or chills. There has been no hematemesis or melena. He does report compliance with his proton pump inhibitor, which he takes for erosive esophagitis. He was evaluated in the emergency department and admitted to the hospital. He underwent evaluation with CT scanning today, which is reviewed. This is interpreted as showing gastric wall thickening in the cardia and fundus with perigastric stranding, and some fluid in the anterior pararenal space and lesser sac. Some lymphadenopathy was noted, but he has had this on prior CT scans. Edu underwent upper endoscopy in November for followup of erosive esophagitis, which showed improvement in his esophagitis. Biopsies showed no Grigsby esophagus or H pylori. There was no malignancy identified at that time. PAST MEDICAL HISTORY: 1. Gastroesophageal reflux disease with erosive esophagitis. 2. Insulin-dependent diabetes mellitus, on insulin pump therapy. 3. Anxiety/depression/PTSD. 4. Arthritis. 5. Substance and alcohol abuse. He denies significant alcohol intake recently, but his urine tox screen showed cocaine and marijuana, which he admits using marijuana. 6. Fatty liver. 7. Screening colonoscopy , negative for adenomatous polyps. 8. Hernia repair as an . CURRENT MEDICATIONS: Current medication list is reviewed in the chart. ALLERGIES: THERE ARE ALLERGIES REPORTED TO VISTARIL AND SEROQUEL. FAMILY HISTORY: He is adopted, but denies any known family history of upper GI tract malignancy. SOCIAL HISTORY: There is no current alcohol abuse, substance use as above. REVIEW OF SYSTEMS: SKIN: No pruritus. HEENT: Negative. CARDIOPULMONARY: He denies shortness of breath or chest pain. GASTROINTESTINAL: As above. GENITOURINARY: Negative. NEUROPSYCHIATRIC: Negative. PHYSICAL EXAMINATION: GENERAL: Shows a pleasant male, lying comfortably in bed. VITAL SIGNS: Reviewed in electronic medical record and are stable. SKIN: Anicteric. HEENT: Shows no scleral icterus. NECK: Without lymphadenopathy or thyromegaly. LUNGS: Clear. HEART: Shows regular rate and rhythm. S1, S2. No murmur. ABDOMEN: Soft without focal masses. There is some mild epigastric tenderness to palpation. Bowel sounds are present. No organomegaly is noted. EXTREMITIES: Without edema. LABORATORY DATA AND IMAGING STUDIES: Laboratory and imaging studies are reviewed as described. IMPRESSION: 1. Abdominal pain. 2. Nausea and vomiting. 3. Abnormal CT scan of the stomach. His symptoms could be consistent with an acute gastroenteritis, although this is somewhat prolonged. He does report compliance with his proton pump inhibitor, so active peptic ulcer disease is unlikely. It is also unlikely that he has a definite mass based on his endoscopy from November. However, I would recommend that this area be re-examined and re-biopsied. I have discussed endoscopy with him including risks and benefits of the procedure. He understands and agrees to proceed. This will be arranged for tomorrow. Thanks for asking me to see him. I will follow him in the hospital with you. MD JONATHAN iTm/SUNDAR / [id number]
[2024-02-03] MEDS: Morphine Sulfate 4 MG/ML CARTRIDGE IVPUSH ×2 (17:54→23:23)
[2024-02-03 19:57] LABS: Glucose, Whole Blood 106 mg/dL (60-115)
[2024-02-03] MEDS: HYDROmorphone HCl 1 MG/ML SYRINGE IVPUSH (20:08)
[2024-02-03] MEDS: Sennosides 8.6 MG TABLET 17.2 MG PO (23:24)
[2024-02-03] MEDS: clonazePAM 0.5 MG TABLET PO (23:24)
[2024-02-04] VITALS (9 sets, daily range): BP systolic 107–174; BP diastolic 64–87; PULSE 64–89; RESP 16–18; TEMP 36.4–36.9; O2SAT 95–99
[2024-02-04] MEDS: 0.9 % Sodium Chloride Flush 3 ML SYRINGE IVFLUSH (02:06)
[2024-02-04] MEDS: HYDROmorphone HCl 1 MG/ML SYRINGE IVPUSH ×5 (03:56→20:21)
[2024-02-04] MEDS: 0.9 % Sodium Chloride 1,000 ML 100 ML IVCONT (04:35)
[2024-02-04] MEDS: Pantoprazole Sodium 40 MG/10 ML VIAL IVPUSH ×2 (05:39→15:54)
[2024-02-04 07:06] LABS: Glucose, Whole Blood 149 mg/dL (60-115)
[2024-02-04 07:12] LABS: PLT CLUMP 1; SCAN SMEAR FLAG 1
[2024-02-04 07:14] LABS: Basophils Percent Auto 0.3 % (0-2); Eosinophils Absolute Auto 0.2 X10*3/uL (0.0-0.4); Eosinophils Percent Auto 2.4 % (0-4); Hematocrit 36.7 % (42.0-52.0); Hemoglobin 13.1 g/dl (14.0-18.0); Imm Gran Abs Auto 0.03 X10*3/uL (0.00-0.03); Imm Gran Pct Auto 0.4 % (0.0-0.4); Lymphocytes Absolute Auto 0.9 X10*3/uL (1.2-4.9); Lymphocytes Percent Auto 12.8 % (20-40); Mean Corpuscular HGB Conc 35.7 g/dl (31.0-36.0); Mean Corpuscular Hemoglobin 36.3 pg (27.0-33.0); Mean Corpuscular Volume 101.7 fL (80.0-98.0); Mean Platelet Volume 10.8 fL (9.4-12.4); Monocytes Absolute Auto 1.1 X10*3/uL (0.1-1.2); Monocytes Percent Auto 14.5 % (2-11); Neutrophils Absolute Auto 5.1 x10*3/uL (2.0-8.3); Neutrophils Percent Auto 69.6 % (45-73); Platelet Count 119 X10*3/uL (160-400); Red Blood Count 3.61 X10*6/uL (4.60-5.80); Red Cell Distribution Width 11.7 % (11.0-16.0); White Blood Count 7.4 X10*3/uL (4.8-10.8)
[2024-02-04 07:16] LABS: MANUAL DIFF FLAG NO
[2024-02-04 07:17] LABS: Anion Gap 5 (12-20); Blood Urea Nitrogen 20 mg/dL (9-16); Calcium 7.8 mg/dL (8.4-10.2); Carbon Dioxide 36 mmol/L (22-29); Chloride 100 mmol/L (96-108); Creatinine Clr Calc Pharmacy 104.5; Estimated Glomerular Filt Rate > 60; Glucose Random 161 mg/dL (60-115); Potassium 3.4 mmol/L (3.3-5.1); Sodium 138 mmol/L (135-145)
--- NOTE | 2024-02-04 08:25 | HO.PM.IMPN ---
Subjective Subjective Date of Service: 02/04/24 Interval History: Continues to have significant abdominal discomfort. Also has occasional nausea/vomiting. Noted plans for EGD today Review of Systems General: No fevers, malaise, unintentional weight loss. +general weakness HEENT: No blurred vision, diplopia. No sore throat, nasal congestion, rhinorrhea, sinus pain, ear pain Cardiovascular: No chest pain, palpitations, or leg edema Respiratory: No shortness of breath, wheezing, cough GI: +abd pain, +naussea, +vomiting. No diarrhea, constipation, melena, hematochezia : No dysuria, hematuria, increased urinary frequency, decreased urinary output MSK: No myalgia, back pain Neuro: No headaches, weakness, paresthesias. +lightheadedness Skin: No rashes or lesions Review of Systems: Yes all other systems are reviewed and are negative Physical Exam Vital Signs: Vital Signs: Last Vital Signs Temp 98.0 F 02/04/24 07:03 Pulse 72 02/04/24 07:03 Resp 18 02/04/24 07:03 BP 146/77 H 02/04/24 07:03 Pulse Ox 96 02/04/24 07:03 O2 Del Method Room Air 02/04/24 07:03 BMI result Body Mass Index 22.6 Middle-aged male lying in bed in mild distress Neck supple, no JVD Regular rate and rhythm, S1-S2 heard Regular breath sounds bilaterally, no wheezing or crackles appreciated Abdomen with generalized tenderness and mild guarding, no rigidity, no rebound tenderness Patient is awake, alert and oriented to self, place, time and person ; no focal motor deficit Psych: Normal mood No pedal edema Objective Data Active Medications Acetaminophen (Acetaminophen 325 Mg Tablet) 650 mg PO Q6H PRN PRN Reason: Pain, Mild (Pain Scale 1-3) Calcium Carbonate (Calcium Carbonate 750 Mg Tab.Chew) 750 mg PO Q4H PRN PRN Reason: Heartburn Clonazepam (Clonazepam 0.5 Mg Tablet) 0.5 mg PO Q48H PRN PRN Reason: Anxiety Last Admin: 02/03/24 23:24 Dose: 0.5 mg Documented By: JOCELYNE Clonidine HCl (Clonidine Hcl 0.1 Mg Tablet) 0.1 mg PO DAILY PRN; Protocol PRN Reason: anxiety Glucose (Glucose Gel 15 Gm Gel..Gram.) 15 gm PO Q15M PRN; Protocol PRN Reason: per Hypoglycemia Standing Ord. Heparin Sodium (Porcine) (Heparin Sodium,Porcine 5,000 Unit/Ml Vial) 5,000 unit SUBCUT Q12H [facility] Last Admin: 02/03/24 12:39 Dose: 5,000 unit Documented By: KAMALJIT Hydromorphone HCl (Hydromorphone Hcl 1 Mg/Ml Syringe) 1 mg IVPUSH Q4H PRN; Protocol PRN Reason: Pain, Severe (Pain Scale 7-10) Last Admin: 02/04/24 07:56 Dose: 1 mg Documented By: ARIANNA Sodium Chloride (Ns) 1,000 mls @ 100 mls/hr IVCONT .Q10H [facility] Last Admin: 02/04/24 04:35 Dose: 100 mls/hr Documented By: JOCELYNE Dextrose (D10) 250 mls @ 750 mls/hr IV Q15M PRN; Protocol PRN Reason: per Hypoglycemia Standing Ord. Insulin Pump (Subcutaneous Insulin Pump) 1 each SUBCUT QIDACHS [facility]; Protocol Last Admin: 02/04/24 07:51 Dose: Not Given Documented By: ARIANNA Non-Admin Reason: BG 126 per pt own insulin pump Morphine Sulfate (Morphine Sulfate 4 Mg/Ml Cartridge) 4 mg IVPUSH Q4H PRN; Protocol PRN Reason: Pain, Moderate(Pain Scale 4-6) Last Admin: 02/03/24 23:23 Dose: 4 mg Documented By: JOCELYNE Pantoprazole Sodium (Pantoprazole Sodium 40 Mg/10 Ml Vial) 40 mg IVPUSH DAILY@0630 [facility] Last Admin: 02/04/24 05:39 Dose: 40 mg Documented By: JOCELYNE Senna (Sennosides 8.6 Mg Tablet) 17.2 mg PO BEDTIME PRN PRN Reason: Constipation Last Admin: 02/03/24 23:24 Dose: 17.2 mg Documented By: JOCELYNE Sodium Chloride (0.9 % Sodium Chloride Flush 3 Ml Syringe) 3 ml IVFLUSH QSHIFT [facility] Last Admin: 02/04/24 07:47 Dose: Not Given Documented By: ARIANNA Non-Admin Reason: IV Running Labs 02/04/24 06:30 02/04/24 06:30 Labs: Laboratory Results - last 24 hr 02/03/24 02/03/24 02/03/24 13:17 16:21 19:53 MCV MCH MCHC RDW Plt Count MPV Immature Gran % (Auto) Neut % (Auto) Lymph % (Auto) [place] % (Auto) Eos % (Auto) Baso % (Auto) Lymph # (Auto) [place] # (Auto) Eos # (Auto) Baso # (Auto) Abs Immat Gran (auto) Absolute Neuts (auto) Absolute Nucleated RBC Nucleated RBC % (auto) Anion Gap Estim Creat Clear Calc Estimated GFR POC Glucose 91 98 106 Random Glucose Calcium 02/04/24 02/04/24 06:30 07:02 MCV 101.7 H MCH 36.3 H MCHC 35.7 RDW 11.7 Plt Count 119 L MPV 10.8 Immature Gran % (Auto) 0.4 Neut % (Auto) 69.6 Lymph % (Auto) 12.8 L [place] % (Auto) 14.5 H Eos % (Auto) 2.4 Baso % (Auto) 0.3 Lymph # (Auto) 0.9 L [place] # (Auto) 1.1 Eos # (Auto) 0.2 Baso # (Auto) 0.0 Abs Immat Gran (auto) 0.03 Absolute Neuts (auto) 5.1 Absolute Nucleated RBC 0.000 Nucleated RBC % (auto) 0.0 Anion Gap 5 L Estim Creat Clear Calc 104.5 Estimated GFR > 60 POC Glucose 149 H Random Glucose 161 H Calcium 7.8 L Assessment and Plan (1) Abdominal pain: Status: Acute Plan 48-year-old male with history of type 1 diabetes, htn, gerd, copd, mood disorder, history of polysubstance abuse # abdominal pain with Intractable nausea/vomiting -imaging concerning for gastritis versus gastric mass. Also inflammation around the pancreas which possibly is reactive -initiated IV Protonix -Gastroenterology appreciated, noted plans for EGD today, 02/03 # acute kidney injury -prerenal, resolved with crystalloid resuscitation #Hypokalemia -due to GI losses -repleted # prolonged QTC -keep magnesium >2.0, K >4.0. Repleted -limit qtc prolonging agents. Unfortunately will liekly require antiemetics, monitor on telemetry # type 1 diabetes-controlled without hyperglycemia -continue patient's home insulin pump- T slim X 2 with Humalog -POC glucose, advanced to diabetic diet # COPD -no acute exacerbation -continue maintenance inhalers, albuterol p.r.n. # mood disorder -continue home meds # hypertension -on lisinopril # GERD -PPI # cigarette smoking -cessation advised -declines replacement therapy #Polysubstance use disorder UDS positive for cocaine. Consulted Addiction Team DVT prophylaxis-heparin Full code Reason for continued hospitalization: Awaiting return of normal bowel function, clinical defervescence. Evaluation pending with planned EGD today Quality Stroke Does the patient have a stroke diagnosis?: No VTE Prior VTE?: No VTE Risk Level:: Medical - moderate - high VTE Device Contraindication: Treatment Not Indicated VTE Drug Contraindication: N/A - Med Ordered
[2024-02-04] MEDS: lisinopriL 5 MG TABLET PO (08:48)
[2024-02-04] MEDS: Potassium Chloride/H20 10 MEQ/100 ML PIGGYBACK 100 MEQ IV ×4 (08:52→15:55)
[2024-02-04] MEDS: Morphine Sulfate 4 MG/ML CARTRIDGE IVPUSH ×3 (09:57→22:19)
[2024-02-04 11:28] LABS: Glucose, Whole Blood 98 mg/dL (60-115)
--- NOTE | 2024-02-04 12:53 | HO.ANESPROP2 ---
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 Mother No problems noted. Family history of problems with anesthesia: No Surgical History Surgical History History of esophagogastroduodenoscopy (EGD) H/O colonoscopy Hx of hernia repair History of Problems with Anesthesia: No Social History Social History Household Members: Family Household Members Other:: mother Housing: House Do you presently have visiting nurse or other home services: No Alcohol intake: former Patient Tobacco Use Status: Current everyday Tobacco user Tobacco use type: Cigarette Cigarettes Per Day: 3 e-Cigarette/Vaping Use: Currently Using Substance Use Type: Marijuana Advance Directives Date on File: 08/29/20 service: No Current occupational status: unemployed Meds Allergies Allergy/AdvReac Type Severity Reaction Status Date / Time hydroxyzine [From VISTARIL] Allergy Intermediate RASH, Verified 02/02/24 08:40 ANXIOUS quetiapine [Seroquel] AdvReac Intermediate Unknown Verified 02/02/24 08:40 Active Medications: Current Medications Acetaminophen (Acetaminophen 325 Mg Tablet) 650 mg PO Q6H PRN PRN Reason: Pain, Mild (Pain Scale 1-3) Calcium Carbonate (Calcium Carbonate 750 Mg Tab.Chew) 750 mg PO Q4H PRN PRN Reason: Heartburn Clonazepam (Clonazepam 0.5 Mg Tablet) 0.5 mg PO Q48H PRN PRN Reason: Anxiety Last Admin: 02/03/24 23:24 Dose: 0.5 mg Clonidine HCl (Clonidine Hcl 0.1 Mg Tablet) 0.1 mg PO DAILY PRN; Protocol PRN Reason: anxiety Glucose (Glucose Gel 15 Gm Gel..Gram.) 15 gm PO Q15M PRN; Protocol PRN Reason: per Hypoglycemia Standing Ord. Heparin Sodium (Porcine) (Heparin Sodium,Porcine 5,000 Unit/Ml Vial) 5,000 unit SUBCUT Q12H [facility] Last Admin: 02/03/24 12:39 Dose: 5,000 unit Hydromorphone HCl (Hydromorphone Hcl 1 Mg/Ml Syringe) 1 mg IVPUSH Q4H PRN; Protocol PRN Reason: Pain, Severe (Pain Scale 7-10) Last Admin: 02/04/24 11:57 Dose: 1 mg Dextrose (D10) 250 mls @ 750 mls/hr IV Q15M PRN; Protocol PRN Reason: per Hypoglycemia Standing Ord. Insulin Pump (Subcutaneous Insulin Pump) 1 each SUBCUT QIDACHS [facility]; Protocol Last Admin: 02/04/24 11:52 Dose: Not Given Lisinopril (Lisinopril 5 Mg Tablet) 5 mg PO DAILY [facility]; Protocol Last Admin: 02/04/24 08:48 Dose: 5 mg Morphine Sulfate (Morphine Sulfate 4 Mg/Ml Cartridge) 4 mg IVPUSH Q4H PRN; Protocol PRN Reason: Pain, Moderate(Pain Scale 4-6) Last Admin: 02/04/24 09:57 Dose: 4 mg Pantoprazole Sodium (Pantoprazole Sodium 40 Mg/10 Ml Vial) 40 mg IVPUSH DAILY@0630 [facility] Last Admin: 02/04/24 05:39 Dose: 40 mg Senna (Sennosides 8.6 Mg Tablet) 17.2 mg PO BEDTIME PRN PRN Reason: Constipation Last Admin: 02/03/24 23:24 Dose: 17.2 mg Sodium Chloride (0.9 % Sodium Chloride Flush 3 Ml Syringe) 3 ml IVFLUSH QSHIFT [facility] Last Admin: 02/04/24 07:47 Dose: Not Given Home Medications ?Medication ?Instructions ?Recorded ?Confirmed ?Last Taken ?Type clonazepam 0.5 mg tablet 0.5 mg PO Q48H PRN Anxiety 07/16/21 02/02/24 01/31/24 History clonidine HCl 0.1 mg tablet 1 tab PO DAILY NXIETY 08/10/21 02/02/24 02/01/24 History lisinopril 5 mg tablet 5 mg PO DAILY 10/30/22 02/02/24 02/01/24 History insulin lispro 100 unit/mL See Rx Instructions .Route .COMPLEX 02/02/24 02/02/24 02/02/24 History subcutaneous solution (Humalog U-100 Insulin) Exam Height,Weight and Vital Signs: Height 5 ft 11 in Weight 73.6 kg Last Vital Signs Temp 98.2 F 02/04/24 12:15 Pulse 70 02/04/24 12:15 Resp 18 02/04/24 12:15 BP 148/84 H 02/04/24 12:15 Pulse Ox 95 02/04/24 12:15 O2 Del Method Room Air 02/04/24 12:15 Pertinent Lab Results Pertinent Lab Results: Laboratory Tests 02/02/24 02/02/24 02/02/24 10:23 10:46 13:05 WBC 14.2 H RBC 4.09 L Hgb 15.4 Hct 42.2 MCV 103.2 H MCH 37.7 H MCHC 36.5 H RDW 12.1 Plt Count 159 L MPV 10.7 Immature Gran % (Auto) 0.6 H Neut % (Auto) 77.0 H Lymph % (Auto) 7.1 L Warren % (Auto) 14.9 H Eos % (Auto) 0.1 Baso % (Auto) 0.3 Lymph # (Auto) 1.0 L Warren # (Auto) 2.1 H Eos # (Auto) 0.0 Baso # (Auto) 0.0 Abs Immat Gran (auto) 0.09 H Absolute Neuts (auto) 11.0 H Absolute Nucleated RBC 0.000 Nucleated RBC % (auto) 0.0 Smear Tech's Comments VERIFIED Sodium 138 Potassium 2.8 L* Chloride 87 L Carbon Dioxide 44 H* D Anion Gap 10 L BUN 48 H Creatinine 1.74 H Estim Creat Clear Calc 50.2 Estimated GFR 42 POC Glucose Random Glucose 170 H Calcium 7.6 L D Magnesium 2.5 Total Bilirubin 0.8 Direct Bilirubin 0.4 AST 55 H ALT 45 H Alkaline Phosphatase 120 H Total Protein 4.9 L Albumin 2.7 L Lipase 14 Urine Color Yellow Urine Appearance Clear Urine pH 7.5 Ur Specific [place] 1.020 Urine Protein 30 (1+) H Urine Glucose (UA) Negative Urine Ketones Negative Urine Blood Large (3+) H Urine Nitrite Negative Ur Leukocyte Esterase Trace H Urine RBC >20 H Urine WBC 0-5 Ur Squamous Epith Cells 3-5 Urine Bacteria None Seen Hyaline Casts 3-5 Granular Casts Present Urine Opiates Screen Not Detected Ur Buprenorphine Scrn Not Detected Ur Oxycodone Screen Not Detected Urine Methadone Screen Not Detected Urine Fentanyl Screen Not Detected Ur Barbiturates Screen Not Detected Ur Phencyclidine Scrn Not Detected Ur Amphetamines Screen Not Detected U Benzodiazepines Scrn Not Detected Urine Cocaine Screen POSITIVE H U Marijuana (THC) Screen POSITIVE H Ethyl Alcohol < 10 02/02/24 02/02/24 02/02/24 16:44 17:36 18:49 WBC RBC Hgb Hct MCV MCH MCHC RDW Plt Count MPV Immature Gran % (Auto) Neut % (Auto) Lymph % (Auto) [place] % (Auto) Eos % (Auto) Baso % (Auto) Lymph # (Auto) Warren # (Auto) Eos # (Auto) Baso # (Auto) Abs Immat Gran (auto) Absolute Neuts (auto) Absolute Nucleated RBC Nucleated RBC % (auto) Smear Tech's Comments Sodium 138 Potassium 4.1 D Chloride 96 Carbon Dioxide 34 H Anion Gap 12 BUN 44 H Creatinine 1.59 H Estim Creat Clear Calc 55.0 Estimated GFR 47 POC Glucose 57 L* 168 H Random Glucose 115 Calcium 7.6 L Magnesium 2.5 Total Bilirubin Direct Bilirubin AST ALT Alkaline Phosphatase Total Protein Albumin Lipase Urine Color Urine Appearance Urine pH Ur Specific [place] Urine Protein Urine Glucose (UA) Urine Ketones Urine Blood Urine Nitrite Ur Leukocyte Esterase Urine RBC Urine WBC Ur Squamous Epith Cells Urine Bacteria Hyaline Casts Granular Casts Urine Opiates Screen Ur Buprenorphine Scrn Ur Oxycodone Screen Urine Methadone Screen Urine Fentanyl Screen Ur Barbiturates Screen Ur Phencyclidine Scrn Ur Amphetamines Screen U Benzodiazepines Scrn Urine Cocaine Screen U Marijuana (THC) Screen Ethyl Alcohol 02/02/24 02/03/24 02/03/24 20:52 07:09 07:41 WBC 7.8 RBC 3.63 L Hgb 13.3 L Hct 37.5 L MCV 103.3 H MCH 36.6 H MCHC 35.5 RDW 12.0 Plt Count 126 L MPV 10.9 Immature Gran % (Auto) 0.4 Neut % (Auto) 67.9 Lymph % (Auto) 14.0 L Warren % (Auto) 15.1 H Eos % (Auto) 2.2 Baso % (Auto) 0.4 Lymph # (Auto) 1.1 L [place] # (Auto) 1.2 Eos # (Auto) 0.2 Baso # (Auto) 0.0 Abs Immat Gran (auto) 0.03 Absolute Neuts (auto) 5.3 Absolute Nucleated RBC 0.000 Nucleated RBC % (auto) 0.0 Smear Tech's Comments Sodium 139 Potassium 3.1 L D Chloride 97 Carbon Dioxide 37 H Anion Gap 8 L BUN 36 H Creatinine 1.25 Estim Creat Clear Calc 69.9 Estimated GFR > 60 POC Glucose 96 133 H Random Glucose 130 H Calcium 7.8 L Magnesium Total Bilirubin Direct Bilirubin AST ALT Alkaline Phosphatase Total Protein Albumin Lipase Urine Color Urine Appearance Urine pH Ur Specific [place] Urine Protein Urine Glucose (UA) Urine Ketones Urine Blood Urine Nitrite Ur Leukocyte Esterase Urine RBC Urine WBC Ur Squamous Epith Cells Urine Bacteria Hyaline Casts Granular Casts Urine Opiates Screen Ur Buprenorphine Scrn Ur Oxycodone Screen Urine Methadone Screen Urine Fentanyl Screen Ur Barbiturates Screen Ur Phencyclidine Scrn Ur Amphetamines Screen U Benzodiazepines Scrn Urine Cocaine Screen U Marijuana (THC) Screen Ethyl Alcohol 02/03/24 02/03/24 02/03/24 13:17 16:21 19:53 WBC RBC Hgb Hct MCV MCH MCHC RDW Plt Count MPV Immature Gran % (Auto) Neut % (Auto) Lymph % (Auto) [place] % (Auto) Eos % (Auto) Baso % (Auto) Lymph # (Auto) [place] # (Auto) Eos # (Auto) Baso # (Auto) Abs Immat Gran (auto) Absolute Neuts (auto) Absolute Nucleated RBC Nucleated RBC % (auto) Smear Tech's Comments Sodium Potassium Chloride Carbon Dioxide Anion Gap BUN Creatinine Estim Creat Clear Calc Estimated GFR POC Glucose 91 98 106 Random Glucose Calcium Magnesium Total Bilirubin Direct Bilirubin AST ALT Alkaline Phosphatase Total Protein Albumin Lipase Urine Color Urine Appearance Urine pH Ur Specific [place] Urine Protein Urine Glucose (UA) Urine Ketones Urine Blood Urine Nitrite Ur Leukocyte Esterase Urine RBC Urine WBC Ur Squamous Epith Cells Urine Bacteria Hyaline Casts Granular Casts Urine Opiates Screen Ur Buprenorphine Scrn Ur Oxycodone Screen Urine Methadone Screen Urine Fentanyl Screen Ur Barbiturates Screen Ur Phencyclidine Scrn Ur Amphetamines Screen U Benzodiazepines Scrn Urine Cocaine Screen U Marijuana (THC) Screen Ethyl Alcohol 02/04/24 02/04/24 02/04/24 06:30 07:02 11:14 WBC 7.4 RBC 3.61 L Hgb 13.1 L Hct 36.7 L MCV 101.7 H MCH 36.3 H MCHC 35.7 RDW 11.7 Plt Count 119 L MPV 10.8 Immature Gran % (Auto) 0.4 Neut % (Auto) 69.6 Lymph % (Auto) 12.8 L Warren % (Auto) 14.5 H Eos % (Auto) 2.4 Baso % (Auto) 0.3 Lymph # (Auto) 0.9 L [place] # (Auto) 1.1 Eos # (Auto) 0.2 Baso # (Auto) 0.0 Abs Immat Gran (auto) 0.03 Absolute Neuts (auto) 5.1 Absolute Nucleated RBC 0.000 Nucleated RBC % (auto) 0.0 Smear Tech's Comments Sodium 138 Potassium 3.4 Chloride 100 Carbon Dioxide 36 H Anion Gap 5 L BUN 20 H Creatinine 0.89 Estim Creat Clear Calc 104.5 Estimated GFR > 60 POC Glucose 149 H 98 Random Glucose 161 H Calcium 7.8 L Magnesium Total Bilirubin Direct Bilirubin AST ALT Alkaline Phosphatase Total Protein Albumin Lipase Urine Color Urine Appearance Urine pH Ur Specific [place] Urine Protein Urine Glucose (UA) Urine Ketones Urine Blood Urine Nitrite Ur Leukocyte Esterase Urine RBC Urine WBC Ur Squamous Epith Cells Urine Bacteria Hyaline Casts Granular Casts Urine Opiates Screen Ur Buprenorphine Scrn Ur Oxycodone Screen Urine Methadone Screen Urine Fentanyl Screen Ur Barbiturates Screen Ur Phencyclidine Scrn Ur Amphetamines Screen U Benzodiazepines Scrn Urine Cocaine Screen U Marijuana (THC) Screen Ethyl Alcohol Assessment and Plan Final Anesthetic Review Family History of Problems with Anesthesia: No History of Problems with Anesthesia: No
--- NOTE | 2024-02-04 12:58 | HO.ANESPROP2 ---
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 Mother No problems noted. Family history of problems with anesthesia: No Surgical History Surgical History History of esophagogastroduodenoscopy (EGD) H/O colonoscopy Hx of hernia repair History of Problems with Anesthesia: No Social History Social History Household Members: Family Household Members Other:: mother Housing: House Do you presently have visiting nurse or other home services: No Alcohol intake: former Patient Tobacco Use Status: Current everyday Tobacco user Tobacco use type: Cigarette Cigarettes Per Day: 3 e-Cigarette/Vaping Use: Currently Using Substance Use Type: Marijuana Advance Directives Date on File: 08/29/20 service: No Current occupational status: unemployed Meds Allergies Allergy/AdvReac Type Severity Reaction Status Date / Time hydroxyzine [From VISTARIL] Allergy Intermediate RASH, Verified 02/02/24 08:40 ANXIOUS quetiapine [Seroquel] AdvReac Intermediate Unknown Verified 02/02/24 08:40 Active Medications: Current Medications Acetaminophen (Acetaminophen 325 Mg Tablet) 650 mg PO Q6H PRN PRN Reason: Pain, Mild (Pain Scale 1-3) Calcium Carbonate (Calcium Carbonate 750 Mg Tab.Chew) 750 mg PO Q4H PRN PRN Reason: Heartburn Clonazepam (Clonazepam 0.5 Mg Tablet) 0.5 mg PO Q48H PRN PRN Reason: Anxiety Last Admin: 02/03/24 23:24 Dose: 0.5 mg Clonidine HCl (Clonidine Hcl 0.1 Mg Tablet) 0.1 mg PO DAILY PRN; Protocol PRN Reason: anxiety Glucose (Glucose Gel 15 Gm Gel..Gram.) 15 gm PO Q15M PRN; Protocol PRN Reason: per Hypoglycemia Standing Ord. Heparin Sodium (Porcine) (Heparin Sodium,Porcine 5,000 Unit/Ml Vial) 5,000 unit SUBCUT Q12H [facility] Last Admin: 02/03/24 12:39 Dose: 5,000 unit Hydromorphone HCl (Hydromorphone Hcl 1 Mg/Ml Syringe) 1 mg IVPUSH Q4H PRN; Protocol PRN Reason: Pain, Severe (Pain Scale 7-10) Last Admin: 02/04/24 11:57 Dose: 1 mg Dextrose (D10) 250 mls @ 750 mls/hr IV Q15M PRN; Protocol PRN Reason: per Hypoglycemia Standing Ord. Insulin Pump (Subcutaneous Insulin Pump) 1 each SUBCUT QIDACHS [facility]; Protocol Last Admin: 02/04/24 11:52 Dose: Not Given Lisinopril (Lisinopril 5 Mg Tablet) 5 mg PO DAILY [facility]; Protocol Last Admin: 02/04/24 08:48 Dose: 5 mg Morphine Sulfate (Morphine Sulfate 4 Mg/Ml Cartridge) 4 mg IVPUSH Q4H PRN; Protocol PRN Reason: Pain, Moderate(Pain Scale 4-6) Last Admin: 02/04/24 09:57 Dose: 4 mg Pantoprazole Sodium (Pantoprazole Sodium 40 Mg/10 Ml Vial) 40 mg IVPUSH DAILY@0630 [facility] Last Admin: 02/04/24 05:39 Dose: 40 mg Senna (Sennosides 8.6 Mg Tablet) 17.2 mg PO BEDTIME PRN PRN Reason: Constipation Last Admin: 02/03/24 23:24 Dose: 17.2 mg Sodium Chloride (0.9 % Sodium Chloride Flush 3 Ml Syringe) 3 ml IVFLUSH QSHIFT [facility] Last Admin: 02/04/24 07:47 Dose: Not Given Home Medications ?Medication ?Instructions ?Recorded ?Confirmed ?Last Taken ?Type clonazepam 0.5 mg tablet 0.5 mg PO Q48H PRN Anxiety 07/16/21 02/02/24 01/31/24 History clonidine HCl 0.1 mg tablet 1 tab PO DAILY NXIETY 08/10/21 02/02/24 02/01/24 History lisinopril 5 mg tablet 5 mg PO DAILY 10/30/22 02/02/24 02/01/24 History insulin lispro 100 unit/mL See Rx Instructions .Route .COMPLEX 02/02/24 02/02/24 02/02/24 History subcutaneous solution (Humalog U-100 Insulin) Exam Height,Weight and Vital Signs: Height 5 ft 11 in Weight 73.6 kg Last Vital Signs Temp 98.2 F 02/04/24 12:15 Pulse 70 02/04/24 12:15 Resp 18 02/04/24 12:15 BP 148/84 H 02/04/24 12:15 Pulse Ox 95 02/04/24 12:15 O2 Del Method Room Air 02/04/24 12:15 Pertinent Lab Results Pertinent Lab Results: Laboratory Tests 02/02/24 02/02/24 02/02/24 10:23 10:46 13:05 WBC 14.2 H RBC 4.09 L Hgb 15.4 Hct 42.2 MCV 103.2 H MCH 37.7 H MCHC 36.5 H RDW 12.1 Plt Count 159 L MPV 10.7 Immature Gran % (Auto) 0.6 H Neut % (Auto) 77.0 H Lymph % (Auto) 7.1 L [place] % (Auto) 14.9 H Eos % (Auto) 0.1 Baso % (Auto) 0.3 Lymph # (Auto) 1.0 L [place] # (Auto) 2.1 H Eos # (Auto) 0.0 Baso # (Auto) 0.0 Abs Immat Gran (auto) 0.09 H Absolute Neuts (auto) 11.0 H Absolute Nucleated RBC 0.000 Nucleated RBC % (auto) 0.0 Smear Tech's Comments VERIFIED Sodium 138 Potassium 2.8 L* Chloride 87 L Carbon Dioxide 44 H* D Anion Gap 10 L BUN 48 H Creatinine 1.74 H Estim Creat Clear Calc 50.2 Estimated GFR 42 POC Glucose Random Glucose 170 H Calcium 7.6 L D Magnesium 2.5 Total Bilirubin 0.8 Direct Bilirubin 0.4 AST 55 H ALT 45 H Alkaline Phosphatase 120 H Total Protein 4.9 L Albumin 2.7 L Lipase 14 Urine Color Yellow Urine Appearance Clear Urine pH 7.5 Ur Specific [place] 1.020 Urine Protein 30 (1+) H Urine Glucose (UA) Negative Urine Ketones Negative Urine Blood Large (3+) H Urine Nitrite Negative Ur Leukocyte Esterase Trace H Urine RBC >20 H Urine WBC 0-5 Ur Squamous Epith Cells 3-5 Urine Bacteria None Seen Hyaline Casts 3-5 Granular Casts Present Urine Opiates Screen Not Detected Ur Buprenorphine Scrn Not Detected Ur Oxycodone Screen Not Detected Urine Methadone Screen Not Detected Urine Fentanyl Screen Not Detected Ur Barbiturates Screen Not Detected Ur Phencyclidine Scrn Not Detected Ur Amphetamines Screen Not Detected U Benzodiazepines Scrn Not Detected Urine Cocaine Screen POSITIVE H U Marijuana (THC) Screen POSITIVE H Ethyl Alcohol < 10 02/02/24 02/02/24 02/02/24 16:44 17:36 18:49 WBC RBC Hgb Hct MCV MCH MCHC RDW Plt Count MPV Immature Gran % (Auto) Neut % (Auto) Lymph % (Auto) [place] % (Auto) Eos % (Auto) Baso % (Auto) Lymph # (Auto) [place] # (Auto) Eos # (Auto) Baso # (Auto) Abs Immat Gran (auto) Absolute Neuts (auto) Absolute Nucleated RBC Nucleated RBC % (auto) Smear Tech's Comments Sodium 138 Potassium 4.1 D Chloride 96 Carbon Dioxide 34 H Anion Gap 12 BUN 44 H Creatinine 1.59 H Estim Creat Clear Calc 55.0 Estimated GFR 47 POC Glucose 57 L* 168 H Random Glucose 115 Calcium 7.6 L Magnesium 2.5 Total Bilirubin Direct Bilirubin AST ALT Alkaline Phosphatase Total Protein Albumin Lipase Urine Color Urine Appearance Urine pH Ur Specific [place] Urine Protein Urine Glucose (UA) Urine Ketones Urine Blood Urine Nitrite Ur Leukocyte Esterase Urine RBC Urine WBC Ur Squamous Epith Cells Urine Bacteria Hyaline Casts Granular Casts Urine Opiates Screen Ur Buprenorphine Scrn Ur Oxycodone Screen Urine Methadone Screen Urine Fentanyl Screen Ur Barbiturates Screen Ur Phencyclidine Scrn Ur Amphetamines Screen U Benzodiazepines Scrn Urine Cocaine Screen U Marijuana (THC) Screen Ethyl Alcohol 02/02/24 02/03/24 02/03/24 20:52 07:09 07:41 WBC 7.8 RBC 3.63 L Hgb 13.3 L Hct 37.5 L MCV 103.3 H MCH 36.6 H MCHC 35.5 RDW 12.0 Plt Count 126 L MPV 10.9 Immature Gran % (Auto) 0.4 Neut % (Auto) 67.9 Lymph % (Auto) 14.0 L [place] % (Auto) 15.1 H Eos % (Auto) 2.2 Baso % (Auto) 0.4 Lymph # (Auto) 1.1 L [place] # (Auto) 1.2 Eos # (Auto) 0.2 Baso # (Auto) 0.0 Abs Immat Gran (auto) 0.03 Absolute Neuts (auto) 5.3 Absolute Nucleated RBC 0.000 Nucleated RBC % (auto) 0.0 Smear Tech's Comments Sodium 139 Potassium 3.1 L D Chloride 97 Carbon Dioxide 37 H Anion Gap 8 L BUN 36 H Creatinine 1.25 Estim Creat Clear Calc 69.9 Estimated GFR > 60 POC Glucose 96 133 H Random Glucose 130 H Calcium 7.8 L Magnesium Total Bilirubin Direct Bilirubin AST ALT Alkaline Phosphatase Total Protein Albumin Lipase Urine Color Urine Appearance Urine pH Ur Specific [place] Urine Protein Urine Glucose (UA) Urine Ketones Urine Blood Urine Nitrite Ur Leukocyte Esterase Urine RBC Urine WBC Ur Squamous Epith Cells Urine Bacteria Hyaline Casts Granular Casts Urine Opiates Screen Ur Buprenorphine Scrn Ur Oxycodone Screen Urine Methadone Screen Urine Fentanyl Screen Ur Barbiturates Screen Ur Phencyclidine Scrn Ur Amphetamines Screen U Benzodiazepines Scrn Urine Cocaine Screen U Marijuana (THC) Screen Ethyl Alcohol 02/03/24 02/03/24 02/03/24 13:17 16:21 19:53 WBC RBC Hgb Hct MCV MCH MCHC RDW Plt Count MPV Immature Gran % (Auto) Neut % (Auto) Lymph % (Auto) [place] % (Auto) Eos % (Auto) Baso % (Auto) Lymph # (Auto) [place] # (Auto) Eos # (Auto) Baso # (Auto) Abs Immat Gran (auto) Absolute Neuts (auto) Absolute Nucleated RBC Nucleated RBC % (auto) Smear Tech's Comments Sodium Potassium Chloride Carbon Dioxide Anion Gap BUN Creatinine Estim Creat Clear Calc Estimated GFR POC Glucose 91 98 106 Random Glucose Calcium Magnesium Total Bilirubin Direct Bilirubin AST ALT Alkaline Phosphatase Total Protein Albumin Lipase Urine Color Urine Appearance Urine pH Ur Specific [place] Urine Protein Urine Glucose (UA) Urine Ketones Urine Blood Urine Nitrite Ur Leukocyte Esterase Urine RBC Urine WBC Ur Squamous Epith Cells Urine Bacteria Hyaline Casts Granular Casts Urine Opiates Screen Ur Buprenorphine Scrn Ur Oxycodone Screen Urine Methadone Screen Urine Fentanyl Screen Ur Barbiturates Screen Ur Phencyclidine Scrn Ur Amphetamines Screen U Benzodiazepines Scrn Urine Cocaine Screen U Marijuana (THC) Screen Ethyl Alcohol 02/04/24 02/04/24 02/04/24 06:30 07:02 11:14 WBC 7.4 RBC 3.61 L Hgb 13.1 L Hct 36.7 L MCV 101.7 H MCH 36.3 H MCHC 35.7 RDW 11.7 Plt Count 119 L MPV 10.8 Immature Gran % (Auto) 0.4 Neut % (Auto) 69.6 Lymph % (Auto) 12.8 L [place] % (Auto) 14.5 H Eos % (Auto) 2.4 Baso % (Auto) 0.3 Lymph # (Auto) 0.9 L [place] # (Auto) 1.1 Eos # (Auto) 0.2 Baso # (Auto) 0.0 Abs Immat Gran (auto) 0.03 Absolute Neuts (auto) 5.1 Absolute Nucleated RBC 0.000 Nucleated RBC % (auto) 0.0 Smear Tech's Comments Sodium 138 Potassium 3.4 Chloride 100 Carbon Dioxide 36 H Anion Gap 5 L BUN 20 H Creatinine 0.89 Estim Creat Clear Calc 104.5 Estimated GFR > 60 POC Glucose 149 H 98 Random Glucose 161 H Calcium 7.8 L Magnesium Total Bilirubin Direct Bilirubin AST ALT Alkaline Phosphatase Total Protein Albumin Lipase Urine Color Urine Appearance Urine pH Ur Specific [place] Urine Protein Urine Glucose (UA) Urine Ketones Urine Blood Urine Nitrite Ur Leukocyte Esterase Urine RBC Urine WBC Ur Squamous Epith Cells Urine Bacteria Hyaline Casts Granular Casts Urine Opiates Screen Ur Buprenorphine Scrn Ur Oxycodone Screen Urine Methadone Screen Urine Fentanyl Screen Ur Barbiturates Screen Ur Phencyclidine Scrn Ur Amphetamines Screen U Benzodiazepines Scrn Urine Cocaine Screen U Marijuana (THC) Screen Ethyl Alcohol Airway Mallampati Class: III TM Dist: >3cm Neck ROM: Full Denture: Upper and Lower Heart: RRR Lungs: CTA Assessment and Plan Assessment Anesthesia Assessment: Anesthesia Plan Discussed and Smoking Cess. Discussed Final Anesthetic Review Family History of Problems with Anesthesia: No History of Problems with Anesthesia: No ASA Class: III and Emergency Final Preanesthetic Review: Meds/Allgs Chart Reviewed, Consent Obtained/Reviewed and Anes Risks/Benef Reviewed Procedure Risk: Low Anesthetic Plan Anesthetic Plan: MAC: Disposition: Standard PACU
--- NOTE | 2024-02-04 13:52 | PM.OP ---
Brief Operative Note Date of Service: 02/04/24 Pre-op diagnosis: Vomiting, abnormal CT Post-op diagnosis: other (Erosive esophagitis, Gastritis) Procedure: EGD with biopsies Surgeon: Hank Stanford MD Anesthesia: MAC Was an Wardrobe Coordinator used for this Procedure?: No Estimated blood loss (mL): 2.0 Pathology: other (A. Gastric antrum) Condition: stable Disposition: PACU
--- NOTE | 2024-02-04 13:53 | PM.EVENT ---
Event Note Date of Service: 02/04/24 Event Note: GI-EGD-Full note dictated Findings: 1. Severe erosive esophagitis 2. Gastritis-proximal stomach > antrum; no mass; biopsied antrum x 3 Rec: IV PPI BID for at least 24 hours, advance diet, and hold all blood thinners. Once tolerating po's I would then recommend omeprazole 40mg po BID. Thanks Time Spent With Patient Time: Total time managing care of this patient today ____ minutes.
--- NOTE | 2024-02-04 14:36 | HO.POSTANES ---
Post Anesthesia Evaluation Post Anesthesia Evaluation Date of Service: 02/04/24 Vital Signs: Vital Signs Temp Pulse Resp BP Pulse Ox O2 Del Method 02/04/24 14:07 97.5 F 81 16 146/87 H 99 Room Air 02/04/24 13:52 97.5 F 71 16 107/64 98 Room Air 02/04/24 12:15 98.2 F 70 18 148/84 H 95 Room Air 02/04/24 11:13 98.0 F 67 18 134/69 96 Room Air 02/04/24 07:03 98.0 F 72 18 146/77 H 96 Room Air 02/04/24 04:00 97.6 F 82 174/82 H 97 Room Air Anesthesia: Monitored Mental Status: Awake Pain Control: Satisfactory Nausea/Vomiting: None Hydration: Adequate Anesthesia-Related Issues: No Anes. Related Issues
[2024-02-04 16:12] LABS: Glucose, Whole Blood 74 mg/dL (60-115)
--- NOTE | 2024-02-04 17:00 | OP_ITS ---
DATE OF SERVICE: 02/04/2024 SURGEON: Hank Stanford MD INDICATIONS: The patient presents for evaluation of vomiting, history of esophagitis, and abnormal CT scan of stomach. Full consent has been obtained from him for this, including risks of bleeding and perforation. PREOPERATIVE DIAGNOSIS: POSTOPERATIVE DIAGNOSIS: PROCEDURE PERFORMED: Esophagogastroduodenoscopy with biopsies. ESTIMATED BLOOD LOSS: COMPLICATIONS: ANESTHESIA: Monitored anesthesia care. ASSISTANTS: SPECIMENS: PREOPERATIVE DIAGNOSES: Vomiting, history of esophagitis, abnormal CT scan of stomach. POSTOPERATIVE DIAGNOSES: Vomiting, history of esophagitis, abnormal CT scan of stomach, severe erosive esophagitis, gastritis, hiatal hernia. DESCRIPTION OF PROCEDURE: The patient was placed in left lateral decubitus position. The Olympus video gastroscope was passed in the posterior oropharynx and upper esophagus. The scope was passed slowly into the distal esophagus. Extending from the gastroesophageal junction at 36 cm to the very proximal esophagus, were multiple areas of ulceration and erosions consistent with erosive esophagitis. There was no sign of any mass. This was similar to the endoscopic findings in 2022. There was no sign of any stricture nor bleeding. The scope entered the stomach. There was a small hiatal hernia. The scope was advanced to pylorus and the duodenum was cannulated to the descending portion. The duodenum including the bulb appeared normal without mass or ulceration. The scope was withdrawn back to the stomach. The gastric antrum and body had areas of edema, erythema, and some friability. There was no ulceration or mass. There was good peristalsis. The scope was retroflexed visualizing the proximal stomach carefully, which also had areas of gastritis with edematous folds and friability, but no ulceration nor mass. The scope was straightened. Biopsies were obtained from the antrum. The scope was withdrawn back to the esophagus. The biopsies were not obtained from the esophagus as they had been on previous occasions. Again noted was the severe esophagitis, but no evidence of any masses. The scope was withdrawn from the patient. He tolerated the procedure well and was returned to the recovery area in stable condition. IMPRESSION: 1. Erosive esophagitis. 2. Hiatal hernia. 3. Gastritis. PLAN: The patient will continue his IV PPI twice a day for another 24 hours at least. His diet will be advanced. Once things are stable, he can have his PPI changed to omeprazole 40 mg b.i.d. He does report that he has been on omeprazole 40 mg daily at home. He reports that his blood sugars apparently have been somewhat poorly controlled due to the lack of a glucose monitor recently and that could be why he was having more vomiting than usual. He continues to report that he is abstinent from alcohol. He will be seen in the office in followup as needed. MD ERENDIRA Fisher/SUNDAR / [phone]
[2024-02-04 20:37] LABS: Glucose, Whole Blood 140 mg/dL (60-115)
[2024-02-04] MEDS: Subcutaneous Insulin Pump 1 EACH SUBCUT (22:22)
[2024-02-05] VITALS (8 sets, daily range): BP systolic 138–159; BP diastolic 70–88; PULSE 63–90; RESP 15–19; TEMP 36.3–36.9; O2SAT 97–100
[2024-02-05] MEDS: HYDROmorphone HCl 1 MG/ML SYRINGE IVPUSH ×5 (01:16→20:07)
[2024-02-05] MEDS: 0.9 % Sodium Chloride Flush 3 ML SYRINGE IVFLUSH ×3 (02:10→20:09)
[2024-02-05] MEDS: Morphine Sulfate 4 MG/ML CARTRIDGE IVPUSH (04:18)
[2024-02-05 07:02] LABS: MANUAL DIFF FLAG NO
[2024-02-05 07:23] LABS: Basophils Absolute Auto 0.1 X10*3/uL (0.0-0.2); Basophils Percent Auto 0.7 % (0-2); Eosinophils Absolute Auto 0.3 X10*3/uL (0.0-0.4); Eosinophils Percent Auto 2.9 % (0-4); Hematocrit 36.8 % (42.0-52.0); Hemoglobin 13.4 g/dl (14.0-18.0); Imm Gran Abs Auto 0.04 X10*3/uL (0.00-0.03); Imm Gran Pct Auto 0.5 % (0.0-0.4); Lymphocytes Absolute Auto 1.1 X10*3/uL (1.2-4.9); Lymphocytes Percent Auto 12.2 % (20-40); Mean Corpuscular HGB Conc 36.4 g/dl (31.0-36.0); Mean Corpuscular Hemoglobin 37.4 pg (27.0-33.0); Mean Corpuscular Volume 102.8 fL (80.0-98.0); Mean Platelet Volume 11.4 fL (9.4-12.4); Monocytes Absolute Auto 1.3 X10*3/uL (0.1-1.2); Neutrophils Percent Auto 68.7 % (45-73); Platelet Count 134 X10*3/uL (160-400); Red Blood Count 3.58 X10*6/uL (4.60-5.80); Red Cell Distribution Width 11.5 % (11.0-16.0); White Blood Count 8.8 X10*3/uL (4.8-10.8)
[2024-02-05 07:50] LABS: Anion Gap 12 (12-20); Blood Urea Nitrogen 14 mg/dL (9-16); Calcium 8.4 mg/dL (8.4-10.2); Carbon Dioxide 30 mmol/L (22-29); Chloride 101 mmol/L (96-108); Creatinine Clr Calc Pharmacy 108.1; Estimated Glomerular Filt Rate > 60; Glucose Random 112 mg/dL (60-115); Potassium 3.6 mmol/L (3.3-5.1); Sodium 139 mmol/L (135-145)
[2024-02-05] MEDS: Pantoprazole Sodium 40 MG/10 ML VIAL IVPUSH ×2 (07:59→16:38)
[2024-02-05] MEDS: lisinopriL 5 MG TABLET PO (08:00)
[2024-02-05 08:01] LABS: Glucose, Whole Blood 116 mg/dL (60-115)
[2024-02-05 11:25] LABS: Glucose, Whole Blood 71 mg/dL (60-115)
[2024-02-05] MEDS: polyethylene glycoL 3350 17 GM POWD.PACK PO (12:22)
--- NOTE | 2024-02-05 12:35 | HO.PM.IMPN ---
Subjective Subjective Date of Service: 02/05/24 Interval History: improved but still with epigastic pain Physical Exam Vital Signs: Vital Signs: Last Vital Signs Temp 98.3 F 02/05/24 11:18 Pulse 63 02/05/24 11:18 Resp 18 02/05/24 11:18 BP 138/70 02/05/24 11:18 Pulse Ox 98 02/05/24 11:18 O2 Del Method Room Air 02/05/24 11:18 BMI result Body Mass Index 22.6 General: AO X 3, no acute distress Resp: CTA bilateral, no accessory muscles used CVS: S1,S2,RRR GI: soft, non tender, non distended Neuro: motor grossly intact, alert Psych: appropriate affect, appropriate insight Objective Data Active Medications Acetaminophen (Acetaminophen 325 Mg Tablet) 650 mg PO Q6H PRN PRN Reason: Pain, Mild (Pain Scale 1-3) Calcium Carbonate (Calcium Carbonate 750 Mg Tab.Chew) 750 mg PO Q4H PRN PRN Reason: Heartburn Clonazepam (Clonazepam 0.5 Mg Tablet) 0.5 mg PO Q48H PRN PRN Reason: Anxiety Last Admin: 02/03/24 23:24 Dose: 0.5 mg Documented By: JOCELYNE Clonidine HCl (Clonidine Hcl 0.1 Mg Tablet) 0.1 mg PO DAILY PRN; Protocol PRN Reason: anxiety Glucose (Glucose Gel 15 Gm Gel..Gram.) 15 gm PO Q15M PRN; Protocol PRN Reason: per Hypoglycemia Standing Ord. Hydromorphone HCl (Hydromorphone Hcl 1 Mg/Ml Syringe) 1 mg IVPUSH Q4H PRN; Protocol PRN Reason: Pain, Severe (Pain Scale 7-10) Last Admin: 02/05/24 12:20 Dose: 1 mg Documented By: KEYON Dextrose (D10) 250 mls @ 750 mls/hr IV Q15M PRN; Protocol PRN Reason: per Hypoglycemia Standing Ord. Insulin Pump (Subcutaneous Insulin Pump) 1 each SUBCUT QIDACHS [facility]; Protocol Last Admin: 02/05/24 12:15 Dose: Not Given Documented By: KEYON Non-Admin Reason: No Insulin Coverage Lisinopril (Lisinopril 5 Mg Tablet) 5 mg PO DAILY [facility]; Protocol Last Admin: 02/05/24 08:00 Dose: 5 mg Documented By: YRIS Morphine Sulfate (Morphine Sulfate 4 Mg/Ml Cartridge) 4 mg IVPUSH Q4H PRN; Protocol PRN Reason: Pain, Moderate(Pain Scale 4-6) Last Admin: 02/05/24 04:18 Dose: 4 mg Documented By: LUKASZ Pantoprazole Sodium (Pantoprazole Sodium 40 Mg/10 Ml Vial) 40 mg IVPUSH BID@0630,1630 [facility] Last Admin: 02/05/24 07:59 Dose: 40 mg Documented By: YRIS Senna (Sennosides 8.6 Mg Tablet) 17.2 mg PO BEDTIME PRN PRN Reason: Constipation Last Admin: 02/03/24 23:24 Dose: 17.2 mg Documented By: JOCELYNE Sodium Chloride (0.9 % Sodium Chloride Flush 3 Ml Syringe) 3 ml IVFLUSH QSHIFT [facility] Last Admin: 02/05/24 08:02 Dose: 3 ml Documented By: YRIS Labs 02/05/24 06:14 02/05/24 06:14 Labs: Laboratory Results - last 24 hr 02/04/24 02/04/24 02/05/24 16:05 20:27 06:14 MCV 102.8 H MCH 37.4 H MCHC 36.4 H RDW 11.5 Plt Count 134 L MPV 11.4 Immature Gran % (Auto) 0.5 H Neut % (Auto) 68.7 Lymph % (Auto) 12.2 L [place] % (Auto) 15.0 H Eos % (Auto) 2.9 Baso % (Auto) 0.7 Lymph # (Auto) 1.1 L [place] # (Auto) 1.3 H Eos # (Auto) 0.3 Baso # (Auto) 0.1 Abs Immat Gran (auto) 0.04 H Absolute Neuts (auto) 6.0 Absolute Nucleated RBC 0.000 Nucleated RBC % (auto) 0.0 Anion Gap 12 Estim Creat Clear Calc 108.1 Estimated GFR > 60 POC Glucose 74 140 H Random Glucose 112 Calcium 8.4 D 02/05/24 02/05/24 07:57 11:21 MCV MCH MCHC RDW Plt Count MPV Immature Gran % (Auto) Neut % (Auto) Lymph % (Auto) [place] % (Auto) Eos % (Auto) Baso % (Auto) Lymph # (Auto) [place] # (Auto) Eos # (Auto) Baso # (Auto) Abs Immat Gran (auto) Absolute Neuts (auto) Absolute Nucleated RBC Nucleated RBC % (auto) Anion Gap Estim Creat Clear Calc Estimated GFR POC Glucose 116 H 71 Random Glucose Calcium Assessment and Plan (1) Abdominal pain: Status: Acute Plan 48-year-old male with history of type 1 diabetes, htn, gerd, copd, mood disorder, history of polysubstance abuse presented wtih epigastric pain Erosive esophagitis Continue IV Protonix today switch to p.o. tomorrow Follow-up pathology Acute kidney injury Resolved Acute hypokalemia Resolved Type 1 diabetes with hyperglycemia Continue insulin pump COPD Stable Hypertension Lisinopril Polysubstance dependence Seen by recovery team DVT prophylaxis with heparin subQ Full code Reason for continued hospitalization: Still with significant epigastric discomfort Quality Stroke Does the patient have a stroke diagnosis?: No VTE Prior VTE?: No VTE Risk Level:: Medical - moderate - high VTE Device Contraindication: Treatment Not Indicated VTE Drug Contraindication: N/A - Med Ordered
--- NOTE | 2024-02-05 13:06 | HO.POSTANES ---
Post Anesthesia Evaluation Post Anesthesia Evaluation Date of Service: 02/04/24 Vital Signs: Vital Signs Temp Pulse Resp BP Pulse Ox O2 Del Method 02/05/24 11:18 98.3 F 63 18 138/70 98 Room Air 02/05/24 08:00 155/88 H 02/05/24 07:59 18 02/05/24 07:13 97.3 F 69 18 155/88 H 97 Room Air 02/05/24 04:00 97.6 F 90 16 152/85 H 100 Room Air Anesthesia: Monitored Mental Status: Awake Pain Control: Satisfactory Nausea/Vomiting: None Hydration: Adequate Anesthesia-Related Issues: No Anes. Related Issues
--- NOTE | 2024-02-05 14:33 | MHC.CM.PN ---
EMR reviewed and per MD rounds, pt is not medically cleared for D/C due to significant epigastric discomfort.
[2024-02-05 16:25] LABS: Glucose, Whole Blood 94 mg/dL (60-115)
[2024-02-05 20:35] LABS: Glucose, Whole Blood 116 mg/dL (60-115)
[2024-02-06] MEDS: HYDROmorphone HCl 1 MG/ML SYRINGE IVPUSH ×3 (00:07→08:53)
[2024-02-06 03:51] VITALS: BP 149/74; PULSE 65; RESP 17; TEMP 36.7; O2SAT 98
[2024-02-06] MEDS: Pantoprazole Sodium 40 MG/10 ML VIAL IVPUSH (06:19)
[2024-02-06 07:17] LABS: Hematocrit 36.5 % (42.0-52.0); Hemoglobin 13.3 g/dl (14.0-18.0); Mean Corpuscular HGB Conc 36.4 g/dl (31.0-36.0); Mean Corpuscular Hemoglobin 37.6 pg (27.0-33.0); Mean Corpuscular Volume 103.1 fL (80.0-98.0); Mean Platelet Volume 11.6 fL (9.4-12.4); Platelet Count 153 X10*3/uL (160-400); Red Blood Count 3.54 X10*6/uL (4.60-5.80); Red Cell Distribution Width 11.5 % (11.0-16.0); White Blood Count 7.4 X10*3/uL (4.8-10.8)
[2024-02-06 07:33] LABS: Anion Gap 9 (12-20); Blood Urea Nitrogen 9 mg/dL (9-16); Calcium 8.5 mg/dL (8.4-10.2); Carbon Dioxide 33 mmol/L (22-29); Chloride 101 mmol/L (96-108); Creatinine Clr Calc Pharmacy 108.1; Estimated Glomerular Filt Rate > 60; Glucose Fasting 119 mg/dL (60-99); Potassium 3.6 mmol/L (3.3-5.1); Sodium 139 mmol/L (135-145)
[2024-02-06 07:49] VITALS: BP 144/72; PULSE 68; RESP 18; TEMP 36.4; O2SAT 97
[2024-02-06 07:50] LABS: Glucose, Whole Blood 143 mg/dL (60-115)
[2024-02-06 08:53] VITALS: BP 144/72
[2024-02-06] MEDS: lisinopriL 5 MG TABLET PO (08:53)
[2024-02-06] MEDS: 0.9 % Sodium Chloride Flush 3 ML SYRINGE IVFLUSH (08:54)
--- NOTE | 2024-02-06 09:39 | PM.DS ---
DS: Providers Provider Date of Service: 02/06/24 Date of admission: 02/02/24 12:12 Primary care physician: Unknown Physician Consults: 02/02/24 13:44 Addiction Medicine Routine Consulting Provider: Addiction Covering Reason for consultation: cocaine use disorder 02/03/24 13:35 Consult to Gastroenterology Routine Consulting Provider: Werner Muñoz Reason for consultation: abdominal pain, nausea/vomiting ; ?gastric mass DS: Diagnosis Discharge Diagnosis (1) Abdominal pain: Status: Acute DS: Summary Hospital Course Hospital Course: from initial hpi: 48-year-old male with history of type 1 diabetes, mood disorder, htn, gerd, copd, history of polysubstance abuse presented to the ED for evaluation of lower abdominal pain, nausea, vomiting ongoing for 4 days. No known sick contacts, recent travel, antibiotic use, or food exposures. Denies any fevers, chills, diarrhea, radiation of pain. He reports vomiting subsided about 2 days ago but still has not been able to tolerate much p.o. other than small sips of broth and other clear liquids due to ongoing nausea. He reports positional lightheadedness but denies any syncope. He feels very weak. He uses a Dexcom and insulin pump and denies any hypoglycemic episodes. He has reported similar episodes in the past. He does report daily edible THC use for medicinal purposes but denies any other illicit substances. Reports minimal alcohol intake, last use was about 1 week ago. He smokes about 3 cigarettes on a daily basis. No one at home with similar symptoms. On arrival, vital signs stable. He has a leukocytosis of 14.2. No anemia. Creatinine 1.74, baseline around 1.0. BUN 48. Potassium 2.8, chloride 87, CO2 44. Glucose 170. AST 55, ALT 45, alkaline phosphatase 120. Lipase 14. Ethyl alcohol level undetectable. EKG shows NSR, rate 87, with prolonged QTC of 510. No acute ischemic changes. In the ED, has received 3 L IV NS, 40 mg pantoprazole, 2 g IV magnesium, and is currently receiving 40 mEq of IV potassium chloride. He will be admitted for further management of acute kidney injury secondary to GI losses from intractable nausea and vomiting, question related to cannabis hyperemesis syndrome versus diabetic gastroparesis. hospital course: Patient was admitted for erosive esophagitis. He was treated with IV Protonix and pain slowly improved. He underwent EGD and biopsies were taken, should be followed up outpatient for results. His home omeprazole has been increased to 40 mg b.i.d. patient also noted to have acute kidney injury on admission which resolved. Acute hypokalemia was repleted. For type 1 diabetes with hyperglycemia who was continued on his insulin pump. His COPD remained stable. For hypertension was continue on lisinopril. For polysubstance dependence was seen by recovered team and given information. Patient is feeling better will be discharged home. Time Attestation Discharge Coordination Time (in mins): 35 Quality: Safe Use of Opioids Does Pt have an Active Cancer Diagnosis on the Problem List?: No Quality: Stroke Does the patient have a stroke diagnosis?: No Physical Exam Vital Signs: Vital Signs: Last Vital Signs Temp 97.5 F 02/06/24 07:49 Pulse 68 02/06/24 07:49 Resp 18 02/06/24 07:49 BP 144/72 H 02/06/24 08:53 Pulse Ox 97 02/06/24 07:49 O2 Del Method Room Air 02/06/24 07:49 BMI result Body Mass Index 22.6 General: AO X 3, no acute distress Resp: CTA bilateral, no accessory muscles used CVS: S1,S2,RRR GI: soft, non tender, non distended Neuro: motor grossly intact, alert Psych: appropriate affect, appropriate insight DS: Data Data Completed and Pending Completed studies during hospitalization [Text1]: Pending at discharge 02/04/24 13:45 Surgical [PTH] Routine Labs on day of discharge: Laboratory Results - last 24 hr 02/05/24 02/05/24 02/05/24 11:21 16:05 20:26 WBC RBC Hgb Hct MCV MCH MCHC RDW Plt Count MPV Absolute Nucleated RBC Nucleated RBC % (auto) Sodium Potassium Chloride Carbon Dioxide Anion Gap BUN Creatinine Estim Creat Clear Calc Estimated GFR POC Glucose 71 94 116 H Fasting Glucose Calcium 02/06/24 02/06/24 06:27 07:46 WBC 7.4 RBC 3.54 L Hgb 13.3 L Hct 36.5 L MCV 103.1 H MCH 37.6 H MCHC 36.4 H RDW 11.5 Plt Count 153 L MPV 11.6 Absolute Nucleated RBC 0.000 Nucleated RBC % (auto) 0.0 Sodium 139 Potassium 3.6 Chloride 101 Carbon Dioxide 33 H Anion Gap 9 L BUN 9 Creatinine 0.86 Estim Creat Clear Calc 108.1 Estimated GFR > 60 POC Glucose 143 H Fasting Glucose 119 H Calcium 8.5 Discharge Plan Discharge Anticipated Discharge Date/Time: 02/06/24 09:37 Patient Disposition: Home, Self-Care Discharge Diagnosis: erosive esophagitis Referrals: Werner Muñoz MD [Physician] - 1 Week Physician,Unknown J [Primary Care Provider] - 1 Week Discharge Medications: New omeprazole 40 mg Capsule,Delayed Release(Dr/Ec) 40 mg PO BID@0630,1630 Qty: 180 0RF Continued (DME) insulin syringe-needle U-100 [BD Insulin Syringe] 0.3 mL 29 gauge x 1/2 syringe See Rx Instructions .ROUTE .MEDSUPPLY Qty: 150 5RF Rx Instructions: 4 times a day (DME) pen needle, diabetic [BD Felisha 2nd Gen Pen Needle] 32 gauge x 5/32 needle See Rx Instructions .ROUTE .MEDSUPPLY Qty: 50 4RF Rx Instructions: once a day (DME) Ketostix Strip See Rx Instructions .Route Qty: 50 6RF Rx Instructions: As directed (DME) 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 meter [FreeStyle Lite Meter] Kit See Rx Instructions .Route Qty: 1 0RF Rx Instructions: As directed-checks 4 X/day clonidine HCl 0.1 mg tablet 1 tab PO DAILY insulin lispro [Humalog U-100 Insulin] 100 unit/mL solution See Rx Instructions .ROUTE .COMPLEX Rx Instructions: INSULIN PUMP clonazepam 0.5 mg tablet 0.5 mg PO Q48H PRN (Reason: Anxiety) Rx Instructions: AT BEDTIME (DME) FreeStyle Lite Strips Strip See Rx Instructions .ROUTE .MEDSUPPLY Qty: 300 11RF Rx Instructions: 4x daily (DME) lancets [FreeStyle Lancets] 28 gauge misc See Rx Instructions .Route Qty: 100 5RF Rx Instructions: As directed 4 X/day lisinopril 5 mg tablet 5 mg PO DAILY Discontinued omeprazole 20 mg Capsule,Delayed Release(Dr/Ec) 20 mg PO BID@0630,1630 Qty: 60 0RF Discharge Orders: Discharge Order (Routine); Ordered 02/06/24 Ordered By: Rahul Marina Diet: Advance to usual diet Activity on Discharge: As tolerated Stand Alone Forms: Patient Portal Discharge page Print Language: Tunisian Care Plan Goals: recovery Health Concerns: erosive esohpagitis Plan of Treatment: ppi, follow up wtih gi Assessment: see above
--- NOTE | 2024-02-06 10:03 | MHC.CM.PN ---
Pt has been medically cleared for DC. He will go home via private transport and plan is self care.
== END 2024-02-06 11:21 | disposition home or self-care (01) | DRG 241 ==
LOC: HO.ED 11:40 → HO.EDOVER 12:22 → HO.IMC 02-03 12:59
PROVIDERS: Internal Medicine; Student in an Organized Health Care Education/Training Program; Admitting Provider Physician Assistant; Emergency Provider Emergency Medicine; Visit Provider Internal Medicine
PROC: 0DJ08ZZ Inspection of Upper Intestinal Tract, Via Natural or Artificial Opening Endoscopic (ICD-10-PCS; CPT 43235; principal; 2024-02-04 13:00)
DX: K29.70 Gastritis, unspecified, without bleeding (principal); N17.9 Acute kidney failure, unspecified; E87.6 Hypokalemia; E86.0 Dehydration; K22.10 Ulcer of esophagus without bleeding; E86.1 Hypovolemia; K44.9 Diaphragmatic hernia without obstruction or gangrene; F19.20 Other psychoactive substance dependence, uncomplicated; J44.9 Chronic obstructive pulmonary disease, unspecified; F39 Unspecified mood [affective] disorder; K76.0 Fatty (change of) liver, not elsewhere classified; E10.9 Type 1 diabetes mellitus without complications; F17.210 Nicotine dependence, cigarettes, uncomplicated; K21.9 Gastro-esophageal reflux disease without esophagitis; R94.31 Abnormal electrocardiogram [ECG] [EKG]; Z96.41 Presence of insulin pump (external) (internal); Z71.6 Tobacco abuse counseling; Z79.899 Other long term (current) drug therapy
CPT/HCPCS: 36415; 74176; 80048; 80076; 80307; 81001; 82947; 83690; 83735; 85025; 85027; 88305; 88313; 88342; 93005; 99285; C9113; J1170; J1596; J1644; J2250; J2270; J2405; J2704; J3475; J3480; J7120

== ENCOUNTER → 2024-02-02 08:42 | Outpatient (BNV) | payer MEDICAID, SELFPAY | PROVIDERS: Emergency Provider Emergency Medicine; Visit Provider Internal Medicine Cardiovascular Disease | DX: R94.31 Abnormal electrocardiogram [ECG] [EKG] (principal) | CPT/HCPCS: 93010 ==

== ENCOUNTER 2024-02-02 12:12 | Outpatient (BNV) | payer MEDICAID, SELFPAY | END 2024-02-03 06:05 | PROVIDERS: Admitting Provider Physician Assistant; Emergency Provider Emergency Medicine; Visit Provider Internal Medicine Cardiovascular Disease | DX: R94.31 Abnormal electrocardiogram [ECG] [EKG] (principal) | CPT/HCPCS: 93010 ==

== ENCOUNTER → 2024-02-02 12:12 | Outpatient (BNV) | payer MEDICAID, SELFPAY | PROVIDERS: Admitting Provider Physician Assistant; Emergency Provider Emergency Medicine; Visit Provider Physician Assistant | DX: R10.9 Unspecified abdominal pain (principal) | CPT/HCPCS: 99223; 99232; 99233; 99239 ==

== ENCOUNTER 2024-03-28 11:35 | Outpatient (REF) | payer MEDICAID, SELFPAY ==
[2024-03-28 13:59] LABS: Anion Gap 13 (12-20); Blood Urea Nitrogen 9 mg/dL (9-16); Calcium 8.6 mg/dL (8.4-10.2); Carbon Dioxide 26 mmol/L (22-29); Chloride 108 mmol/L (96-108); Cholesterol 155 mg/dL (<200); Estimated Glomerular Filt Rate > 60; Glucose Random 79 mg/dL (60-115); HDL Cholesterol 91 mg/dL (>40); LDL Cholesterol Calculated 50 mg/dL (<100); Sodium 143 mmol/L (135-145); Triglycerides 73 mg/dL (<150)
== END 2024-03-28 11:36 | disposition home or self-care (01) ==
LOC: HO.HMGCLDS 11:35
PROVIDERS: Visit Provider Internal Medicine Endocrinology, Diabetes & Metabolism
DX: E10.65 Type 1 diabetes mellitus with hyperglycemia (principal)
CPT/HCPCS: 36415; 80048; 80061

== ENCOUNTER 2024-03-29 08:01 | Outpatient (AMB) | payer MEDICAID, SELFPAY ==
--- NOTE | 2024-03-29 08:06 | A.OFFVIS_ITS ---
Vital Signs 03/29/24 08:10 Height 5 ft 11 in Weight 156 lb 11.979 oz BMI 21.9 BP 154/92 H Blood Pressure Location Rt brachial Position Sitting Pulse 107 H Pulse Source Pulse Oximeter Intake Visit Reasons: f/u Type 1 DM-confirmed Intake Note: Patient present today to follow up on Type 1 Diabetes Mellitus. Patient receives DME supplies through: [employer] Last Diabetic Eye exam: Has an upcoming appointment on May 2024 Last Podiatry Visit: Does not See a Moss Bleacher Random Glucose: 91 mg/dl HgA1C: 5.3% Burnt Lime Drawer Required: No Accompanied by: Self / Same As Patient Allergies hydroxyzine [From VISTARIL] Allergy (Intermediate, Verified 03/29/24 08:11) RASH, ANXIOUS quetiapine [Seroquel] Adverse Reaction (Intermediate, Verified 03/29/24 08:11) Unknown HPI Comments Details: Patient is a 48 year old male with DM type 1 diagnosed at age 32 who presents for management of diabetes.. Since then he has met with the diabetes care and early childhood education specialist various occasion and has been upgraded to Control IQ. . Today patient reports he is feeling well. Basal rate(s) (units/hour) : 12 AM? to 6 AM? 0.75 units / hr 6 AM to 12 PM ? 1.75 units / hr 6 PM to 12 AM ? 0.75 units / hr Bolus setting Insulin Carbohydrate Ratio (s)\ 12 AM to 12 PM 1:10 12 PM? to 4 PM? 1:10? 6 PM? to 12 AM? 1:10 Correction Factor / Sensitivity Factor 12 AM? to 12 AM? 1:50 Active Insulin Time:? 3 hours Target(s): Control IQ 12 AM? to 12 AM? 110 mg/dL When not in control IQ 12 AM? to 12 AM? 120 mg/dL Total daily insulin dose is 28.5 units with 74% basal and 26% bolus. Control IQ is use 93% of the time. Sensor download shows he is using the sensor 93.7% of the time. Average glucose is 141 with G mi of 6.7%. 77% range with 19% hyperglycemia and 4% hypoglycemia. Hand shows hypoglycemia occurring after meals Symptoms reported: numbness, tingling, cramping in lower extremities Hypoglycemia: Very rare-couple of wk Exercise: each day Churn Operator Margarine - CDE education: Currently sees [facility] Moss Bleacher: denies Dental exam: week ago, goes every 6 months Ophthalmology evaluation: next exam in 05/2024 denies retinopathy Other specialists: saw teletype or varitype keyboard operator Laboratory Tests 03/18/21 07/16/21 08/10/21 09:50 10:14 06:14 Creatinine 0.72 Estimated GFR > 60 Fasting Glucose 199 H Hgb A1c (Clinic) 5.9 C-Peptide 08/10/21 06:14 Creatinine Estimated GFR Fasting Glucose Hgb A1c (Clinic) C-Peptide < 0.10 L 03/18/21 03/18/21 03/18/21 09:50 09:50 09:50 Creatinine 1.06 Estimated GFR > 60 Hgb A1c (Clinic) Triglycerides 130 Cholesterol 169 LDL Cholesterol Direct 32 LDL Cholesterol, Calc 25 HDL Cholesterol 118 25-OH Vitamin D Total 15.6 TSH 0.76 Free T4 1.07 Microalb/Creat Ratio 4.9 03/18/21 15:28 Creatinine Estimated GFR Hgb A1c (Clinic) 5.9 Triglycerides Cholesterol LDL Cholesterol Direct LDL Cholesterol, Calc HDL Cholesterol 25-OH Vitamin D Total TSH Free T4 Microalb/Creat Ratio [facility] Medical History Polysubstance abuse Osteoarthritis Type 1 diabetes History of drug abuse Depression Vitamin D deficiency 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 Mother No problems noted. Social History Household Members: Family Household Members Other:: mother Housing: House Do you presently have visiting nurse or other home services: No Alcohol intake: former Patient Tobacco Use Status: Current everyday Tobacco user Tobacco use type: Cigarette Cigarettes Per Day: 3 e-Cigarette/Vaping Use: Currently Using Substance Use Type: Marijuana Advance Directives Date on File: 08/29/20 service: No Current occupational status: unemployed Physical Exam Vital Signs: Last Vital Signs Pulse 107 H 03/29/24 08:10 BP 154/92 H 03/29/24 08:10 BMI result Body Mass Index 21.9 Absence of Cushingoid features. Absence of acromegalic features. Neck exam reveals nl size thyroid about 15 gms. No thyroid nodules palpable. No carotid bruits present. Lungs CTA. Heart S1 S2, Reg R/R. No M/R/ G. Skin exam reveals absence of vitiligo or acanthosis nigricans. Abdominal exam reveals Soft NT/ND with NA BS. No organomegaly present. Extrem Other: Visual exam of foot performed. No ulcerations or open lesions. No onchomycosis, no callouses.Pulses 2 + distally. Sensation intact to monofilament exam. Vibratory sensation sensed 10 seconds in right, 10 seconds in left with 128 Hz tuning fork Results AMB Hemoglobin A1c AMB Hemoglobin A1c 5.3 % Last Edit by OSMAN Bridges on 03/29/24 08:24 Results Reviewed Results Reviewed: Laboratory Last Values Glucose (Clinic) 91 mg/dL (60-115) 03/29/24 08:15 Hgb A1c (Clinic) 5.3 % (4.0-6.0) 03/29/24 08:19 Assessment & Plan Assessment & Plan (1) Diabetes type 1, uncontrolled: Code(s): E10.65 - Type 1 diabetes mellitus with hyperglycemia Category: Medical Plan: This is a 48-year-old white male with a history of type 1 diabetes with ex cellent glycemic control on T-Slim X2 insulin pump with no known microvascularor macrovascular complications. He has excellent glycemic control. Sensor could not be download so changes to the pump could not be made Plan is to decrease basal rate to 1.5 units/hr from 6 AM to 6 PM and use the sleep mode to avoid extra microboluses overnight. . Follow-up with Shira Karimi NP in 3 wks Orders: Orders AMB Hemoglobin A1c Today E10.65 - Type 1 diabetes mellitus with hyperglycemia Microalbumin, Random (w Creat) Today E10.65 - Type 1 diabetes mellitus with hyperglycemia Coding Level of Care Code Est Pt Level 4 (23153) Diagnoses Diabetes type 1, uncontrolled E10.65
[2024-03-29 08:10] VITALS: BP 154/92; PULSE 107; BMI 21.9
[2024-03-29 08:20] LABS: Glucose, Whole Blood 91 mg/dL (60-115)
== END 2024-03-29 08:45 | disposition home or self-care (01) ==
PROVIDERS: PCP Nurse Practitioner Family; Visit Provider Internal Medicine Endocrinology, Diabetes & Metabolism
DX: E10.65 Type 1 diabetes mellitus with hyperglycemia (principal)
CPT/HCPCS: 99214

== ENCOUNTER → 2024-03-29 08:01 | Outpatient (BNVA) | payer MEDICAID, SELFPAY | PROVIDERS: PCP Nurse Practitioner Family; Visit Provider Internal Medicine Endocrinology, Diabetes & Metabolism | DX: E10.65 Type 1 diabetes mellitus with hyperglycemia (principal); Z96.41 Presence of insulin pump (external) (internal) | CPT/HCPCS: 82947; 83036; 99212 ==

== ENCOUNTER 2024-04-19 07:55 | Outpatient (AMB) | payer MEDICAID, SELFPAY ==
[2024-04-19 08:09] VITALS: BP 186/110; PULSE 85; BMI 21.5
--- NOTE | 2024-04-19 08:09 | A.OFFVIS_ITS ---
Vital Signs 04/19/24 08:09 04/19/24 08:48 Height 5 ft 10 in Weight 149 lb 14.629 oz BMI 21.5 BP 186/110 H 180/80 H Blood Pressure Location Rt brachial Position Sitting Pulse 85 Intake Visit Reasons: T1DM/LVM Intake Note: Former Patient presents today to established treatment for Diabetes Type 1: Last Diabetic Eye Exam: DUE Last Podiatry Exam- Does not see a Dredgemaster Most recent HbA1c- 5.3% 03/29/2024 Random Glucose- 110 mg/dL Transit Bus Driver Required: No Accompanied by: Self / Same As Patient Allergies hydroxyzine [From VISTARIL] Allergy (Intermediate, Verified 04/19/24 08:19) RASH, ANXIOUS quetiapine [Seroquel] Adverse Reaction (Intermediate, Verified 04/19/24 08:19) Unknown HPI Comments Details: Patient is a 48 year old male with DM type 1 diagnosed at age 32 who presents for management of diabetes. He is on a Tandem T-Slim X2 with Control IQ Back up pump failure: Lantus 22 units once daily, short acting insulin by syringe for meal coverage tid. Basal rate(s) (units/hour) : 12 AM? to 6 AM? 0.75 units / hr 6 AM to 12 PM ? 1.5units / hr 12 PM to 6PM 1.75 units/hr 6 PM to 12 AM ? 0.5 units / hr Bolus setting Insulin Carbohydrate Ratio (s)\ 12 AM to 12 PM 1:10 12 PM? to 4 PM? 1:10? 6 PM? to 12 AM? 1:10 Correction Factor / Sensitivity Factor 12 AM? to 12 AM? 1:50 Active Insulin Time:? 3 hours Target(s): Control IQ 12 AM? to 12 AM? 110 mg/dL When not in control IQ 12 AM? to 12 AM? 120 mg/dL Total daily insulin dose is 65 units with 69% basal and 31% bolus. Control IQ is use 97% of the time. Sensor download shows he is using the sensor 94.5% of the time. Average glucose is 149 with G mi of 6.9%. 74% range with 17% hyperglycemia and 3% hypoglycemia. Occasional hypoglycemia after lunch which he believes is related to over-correction. Symptoms reported: numbness, tingling, cramping in lower extremities Hypoglycemia: as above Exercise: each day Substance free for 15 years. Does attend meetings. Smokes 1 pack per day and is pre contemplative. Custom Seamstress - CDE education: Currently sees [facility] Dredgemaster: denies Dental exam: 3 week ago, goes every 6 months Ophthalmology evaluation: next exam in 06/2024 denies retinopathy Other specialists: saw sow manager f/u scheduled for July. He is testing his blood pressure 3 times per week and most readings have been in good range with occasional higher reading. [facility] Medical History Polysubstance abuse Osteoarthritis Type 1 diabetes History of drug abuse Depression Vitamin D deficiency 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 Mother No problems noted. Social History Household Members: Family Household Members Other:: mother Housing: House Do you presently have visiting nurse or other home services: No Alcohol intake: former Patient Tobacco Use Status: Current everyday Tobacco user Tobacco use type: Cigarette Cigarettes Per Day: 3 e-Cigarette/Vaping Use: Currently Using Substance Use Type: Marijuana Advance Directives Date on File: 08/29/20 service: No Current occupational status: unemployed Physical Exam Vital Signs: Last Vital Signs Pulse 85 04/19/24 08:09 BP 186/110 H 04/19/24 08:09 BMI result Body Mass Index 21.5 Const General: cooperative and healthy appearing Orientation/consciousness: oriented to person Limitations: no limitations Neck Neck: Yes normal visual inspection Thyroid: Thyroid normal Resp Effort & Inspection: normal respiratory effort Cardio Jugular venous distension: no JVD Rate: regular rate Rhythm: regular rhythm Heart sounds: S1 normal heart sound present and S2 normal heart sound present Neuro General: oriented to person Extrem Other: Visual exam of foot performed. No ulcerations or open lesions. No onchomycosis, no callouses. Sensation intact to monofilament exam. Vibratory sensation is normal with 128 Hz tuning fork. +2 pulses Results Reviewed Results Reviewed: Laboratory Last Values Glucose (Clinic) 115 mg/dL (60-115) 04/19/24 08:16 Laboratory Tests 02/06/24 03/28/24 03/29/24 06:27 11:40 08:19 Hgb 13.3 L Hct 36.5 L Potassium 4.0 BUN 9 Creatinine 0.68 Estimated GFR > 60 Hgb A1c (Clinic) 5.3 Calcium 8.6 Triglycerides 73 Cholesterol 155 LDL Cholesterol, Calc 50 HDL Cholesterol 91 Assessment & Plan Assessment & Plan (1) Diabetes type 1, uncontrolled: Code(s): E10.65 - Type 1 diabetes mellitus with hyperglycemia Category: Medical Plan: No changes were made to settings of his pump. He will focus on not over counting carbs for lunch. If he continues with lows after lunch he will change his correction factor from 11pm to 2p to 1: 55. He is comfortable making that change on his own. The patient was counseled to always carry a source of sugar and on the rule of 15's: Take 3 glucose tablets and repeat again in 15 minutes if blood sugar is not in normal range. Continue to repeat every 15 minutes until blood sugar is normal. High glucose protocol reviewed with patient, pump failure protocol reviewed with patient, DKA prevention protocol reviewed. He has nasal glucagon at home in his mother is aware of where it is stored and when to use it. He carries a sugar source at all times. Backup method for long- acting insulin was sent to the pharmacy. (2) Tobacco abuse: Code(s): Z72.0 - Tobacco use Category: Medical Plan: Pre contemplative. He is smoking 1 pack per week. Reviewed health risks. (3) HTN (hypertension): Code(s): I10 - Essential (primary) hypertension Category: Medical Plan: BP was higher in the office today. He sees a sow manager on a regular basis and has follow-up in July. His sow manager is having him test his blood pressure 3 times per week and it has been in reasonable range. He will test daily this week and if his numbers remain over 150 systolic he will notify his sow manager. Medications: New insulin glargine U-300 conc 22 units (0.0733 mL) subcut DAILY PRN 4.5 mL 1RF pump faiure E10.65 - Type 1 diabetes mellitus with hyperglycemia Coding Level of Care Code Est Pt Level 5 (34733) Complex EM visit Add On G2211 Diagnoses Diabetes type 1, uncontrolled E10.65 Tobacco abuse Z72.0 HTN (hypertension) I10 Time Spent (min) 56 Comment reviewing labs and diagnostic reports, reviewing previous provider notes, face/ face doc
[2024-04-19 08:20] LABS: Glucose, Whole Blood 115 mg/dL (60-115)
[2024-04-19 08:48] VITALS: BP 180/80
== END 2024-04-19 08:44 | disposition home or self-care (01) ==
PROVIDERS: PCP Nurse Practitioner Family; Visit Provider Nurse Practitioner Adult Health
DX: E10.65 Type 1 diabetes mellitus with hyperglycemia (principal); Z72.0 Tobacco use; I10 Essential (primary) hypertension
CPT/HCPCS: 99215; G2211

== ENCOUNTER → 2024-04-19 07:55 | Outpatient (BNVA) | payer MEDICAID, SELFPAY | PROVIDERS: PCP Nurse Practitioner Family; Visit Provider Nurse Practitioner Adult Health | DX: E10.65 Type 1 diabetes mellitus with hyperglycemia (principal); I10 Essential (primary) hypertension; Z72.0 Tobacco use; Z96.41 Presence of insulin pump (external) (internal) | CPT/HCPCS: 82947; 99212 ==

== ENCOUNTER 2024-05-15 16:29 | Emergency (ER) | payer MEDICAID, SELFPAY ==
--- NOTE | ~2024-05-15 | CT_ITS ---
EXAMINATION: CT HEAD WITHOUT CONTRAST CT CERVICAL SPINE WITHOUT CONTRAST CLINICAL INFORMATION: Fall and hit head COMPARISON: CT head 05/07/2022. TECHNIQUE: CT of the head and cervical spine were performed without intravenous contrast. Multiplanar reformats were rendered and reviewed. This CT examination was performed using dose optimization techniques as appropriate, variously including the following: *Automated exposure control *Adjustment of mA and/or kV according to patient size (this includes techniques or standardized protocols for targeted exams where dose is matched to indication/reason for exam; i.e. extremities or head) *Use of iterative reconstruction technique DLP: 1039 mGy-cm. FINDINGS: CT head: There is no evidence of acute intracranial hemorrhage or edematous territorial infarction. The russell-white matter differentiation appears preserved. The ventricles and cortical sulci are proportional. No obstructive hydrocephalus. There is no mass effect or midline shift. No extra-axial collections. No acute osseous normality. Mild soft tissue thickening in the right frontal scalp. Mild right maxillary sinus mucosal thickening. Otherwise the paranasal sinuses and mastoids are well-aerated. CT cervical spine: The atlantooccipital and atlantoaxial indications remain well aligned. Straightening of cervical lordosis. The cervical vertebral bodies demonstrate normal height. 3 mm retrolisthesis of C4 over C5. Moderate intervertebral disc space narrowing and plate degenerative changes at C4-C5. Small degenerative osteophytes at multiple levels in the cervical spine. No acute fracture or traumatic subluxation involving the cervical spine. The thyroid gland and remaining cervical soft tissues appear unremarkable. The included lung apices demonstrate mild emphysematous changes. CT/CT cervical spine wo IV con IMPRESSION: CT head: No acute intracranial finding. CT cervical spine: No fracture or traumatic subluxation involving the cervical spine. Multilevel cervical spondylosis. Moderate degenerative disc disease at C4-C5.
--- NOTE | ~2024-05-15 | CT_ITS ---
EXAMINATION: CT ABDOMEN AND PELVIS WITH CONTRAST CLINICAL INFORMATION: fall lower back and right hip pain x ray negative COMPARISON: 02/03/2024 TECHNIQUE: Multidetector volumetric imaging was performed from the superior aspect of the liver through the pubic symphysis following administration of 85 mL Omnipaque 300 intravenous contrast. Sagittal and coronal reformatted images were obtained on the technologist workstation.. This CT examination was performed using dose optimization techniques as appropriate, variously including the following: *Automated exposure control *Adjustment of mA and/or kV according to patient size (this includes techniques or standardized protocols for targeted exams where dose is matched to indication/reason for exam; i.e. extremities or head) *Use of iterative reconstruction technique DLP: 396 mGy-cm FINDINGS: LUNG BASES: Diffuse fatty infiltration of the liver with focal confluent fibrotic changes in the left lobe of the liver but no focal hepatic lesion or biliary ductal dilatation. LIVER, GALLBLADDER, AND BILIARY TREE: The liver is normal in size, shape, and attenuation. No focal hepatic lesion or biliary ductal dilatation is present. The gallbladder is unremarkable with no evidence of radiopaque gallstones, gallbladder wall thickening, or obvious pericholecystic inflammatory changes. PANCREAS: Atrophic SPLEEN: Unremarkable. ADRENAL GLANDS: Unremarkable. KIDNEYS AND URETERS: The kidneys are normal in size, shape, and attenuation. No hydronephrosis, hydroureter, or perinephric stranding. No calculi. BLADDER: Although decompressed there does appear to be diffuse bladder wall thickening and underlying cystitis cannot be excluded. GASTROINTESTINAL TRACT: Although decompressed and does appear to be diffuse colonic wall thickening in the sigmoid colon, proximal transverse colon, and descending colon to cecum. Diffuse infectious or inflammatory colitis would be favored. Unremarkable appendix partially visualized. Small bowel unremarkable. Stomach is distended with fluid with a small amount of concentric wall thickening in the visualized esophagus. Component of esophagitis cannot be excluded ABDOMINAL WALL: No significant hernia is appreciated. LYMPHOVASCULAR STRUCTURES: Vascular calcification within the aortoiliac system PELVIC VISCERA: Unremarkable. OSSEOUS STRUCTURES: Degenerative changes in the hips CT/CT abdomen pelvis w IV con IMPRESSION: 1. Although decompressed, there does appear to be diffuse colonic wall thickening. Infectious or inflammatory colitis would be favored. 2. Although decompressed there does appear to be diffuse bladder wall thickening and underlying cystitis cannot be excluded. 3. Diffuse fatty infiltration of the liver with focal confluent fibrotic changes in the left lobe of the liver.
--- NOTE | ~2024-05-15 | XR_ITS ---
EXAMINATION: XR HIP, RIGHT CLINICAL INFORMATION: Fall and right hip pain COMPARISON: 02/03/2024 CT scan TECHNIQUE: Frontal view of the pelvis with coronal and frontal and frog-leg lateral views of the right hip of the right hip. FINDINGS: Both femoral heads are well-seated within their respective acetabula. Extensive degenerative changes are seen with prominent marginal osteophytosis of both femoral head/neck junctions. There are degenerative changes of both acetabula. I do not appreciate any cortical disruption or trabecular irregularity to suggest underlying fracture or dislocation. Visualized pelvic bones are unremarkable. Unremarkable bowel gas pattern XR/XR hip RT w PEL1V IMPRESSION: Extensive degenerative changes but no acute fracture or dislocation seen.
[2024-05-15 16:36] VITALS: BP 149/79; PULSE 97; RESP 17; TEMP 36.5; O2SAT 97; BMI 21.6
--- NOTE | 2024-05-15 16:42 | ED_ITS ---
HPI - General Adult General Chief complaint: Fall Stated complaint: fell down stairs, hip and foot pain, BGL problem Time Seen by Provider: 05/15/24 17:03 History of Present Illness HPI narrative: Seen by Dr. Stack Related Data Home Medications ?Medication ?Instructions ?Recorded ?Confirmed clonazepam 0.5 mg tablet 0.5 mg PO Q48H PRN Anxiety 07/16/21 02/02/24 clonidine HCl 0.1 mg tablet 1 tab PO DAILY NXIETY 08/10/21 02/02/24 lisinopril 5 mg tablet 5 mg PO DAILY 10/30/22 02/02/24 insulin lispro 100 unit/mL See Rx Instructions .Route .COMPLEX 02/02/24 02/02/24 subcutaneous solution (Humalog U-100 Insulin) cholecalciferol (vitamin D3) 50 50 mcg PO DAILY 03/29/24 mcg (2,000 unit) capsule Previous Rx's ?Medication ?Instructions ?Recorded insulin syringe-needle U-100 0.3 #150 ea 08/29/20 mL 29 gauge x 1/2 (BD Insulin Syringe) pen needle, diabetic 32 gauge x #50 ea 08/29/20 5/32 (BD Felisha 2nd Gen Pen Needle) acetone (urine) test (Ketostix #50 ea 10/08/21 strips) 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 meter (FreeStyle #1 ea 10/22/22 Lite Meter kit) blood sugar diagnostic (FreeStyle #300 ea 02/19/23 Lite Strips) lancets 28 gauge (FreeStyle #100 ea 02/19/23 Lancets) omeprazole 40 mg capsule,delayed 40 mg PO BID@0630,1630 #180 caps 02/06/24 release insulin glargine 100 unit/mL (3 22 unit (0.22 mL) subcut QAM PRN 04/20/24 mL) subcutaneous pen (Lantus pump failure 30 days #3 mL Solostar U-100 Insulin) Allergies Allergy/AdvReac Type Severity Reaction Status Date / Time hydroxyzine [From VISTARIL] Allergy Intermediate RASH, Verified 05/15/24 16:43 ANXIOUS quetiapine [Seroquel] AdvReac Intermediate Unknown Verified 05/15/24 16:43 COUNTS INCLUDE 234 BEDS AT THE [facility] Past Medical History Medical History Polysubstance abuse Osteoarthritis Type 1 diabetes History of drug abuse Depression Vitamin D deficiency 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 Mother No problems noted. Social History Social History Household Members: Family Household Members Other:: mother Housing: House Do you presently have visiting nurse or other home services: No Alcohol intake: former Patient Tobacco Use Status: Current everyday Tobacco user Tobacco use type: Cigarette Cigarettes Per Day: 3 Smoked in Last 30 Days: Yes e-Cigarette/Vaping Use: Currently Using Use of substances other than those prescribed or required for medical reasons: Yes Substance Use Type: Marijuana Substance Use Frequency: Daily Advance Directives: Yes Advance Directives on File: Yes Advance Directives Date on File: 08/29/20 Do you have a plan to hurt others: No Plan service: No Current occupational status: unemployed Physical Exam ED Vital Signs: Vital Signs - 24 hr 05/15/24 16:36 05/15/24 20:20 05/15/24 20:43 Temperature 97.7 F 97.9 F Pulse Rate 97 90 Respiratory Rate 17 18 18 Blood Pressure 149/79 H 146/99 H Pulse Oximetry 97 98 Oxygen Delivery Method Room Air Room Air 05/15/24 22:09 Temperature 98.0 F Pulse Rate 104 H Respiratory Rate 19 Blood Pressure 147/99 H Pulse Oximetry 98 Oxygen Delivery Method Room Air BMI result Body Mass Index 21.6 Course Course Course Narrative: RME: done by EVELIA Handy. Patient presents to ED for falling down the stairs. Patient complaining of right hip pain. Patient admits to drinking. Patient did hit head. Patient is glucometer says 47. Patient to be brought to the ED immediately. patient given apple juice. labs D10 and D5 ordered Medications Administered Discontinued Medications Generic Name Dose Route Start Last Admin Trade Name Freq PRN Reason Stop Dose Admin Dextrose 25 gm 05/15/24 18:15 05/15/24 18:04 Dextrose 50 % 25 Gm/50 Ml Syringe IVPUSH 05/15/24 18:16 25 gm ONCE ONE Administration Hydromorphone HCl 0.5 mg 05/15/24 17:29 05/15/24 18:24 Hydromorphone Hcl 0.5 Mg/0.5 Ml Syringe IVPUSH 05/15/24 17:30 0.5 mg ONCE ONE Administration Protocol Hydromorphone HCl 0.5 mg 05/15/24 20:13 05/15/24 20:20 Hydromorphone Hcl 0.5 Mg/0.5 Ml Syringe IVPUSH 05/15/24 20:14 0.5 mg ONCE ONE Administration Protocol Iohexol 100 ml 05/15/24 18:12 05/15/24 18:13 Iohexol 350 Mg/Ml 100 Ml Infus..Btl IV 05/15/24 18:13 85 ml ONCE ONE Administration Ondansetron HCl 4 mg 05/15/24 17:30 05/15/24 18:24 Ondansetron Hcl 4 Mg/2 Ml Vial IVPUSH 05/15/24 17:31 4 mg ONCE ONE Administration Ondansetron HCl 4 mg 05/15/24 20:12 05/15/24 20:20 Ondansetron Hcl 4 Mg/2 Ml Vial IVPUSH 05/15/24 20:13 4 mg ONCE ONE Administration Medical Decision Making Lab Data 05/15/24 17:12 05/15/24 17:12 Labs: Lab Results 05/15/24 05/15/24 05/15/24 Range/Units 17:12 18:00 20:09 WBC 7.7 (4.8-10.8) X10*3/uL RBC 4.15 L (4.60-5.80) X10*6/uL Hgb 15.5 (14.0-18.0) g/dl Hct 42.7 (42.0-52.0) % MCV 102.9 H (80.0-98.0) fL MCH 37.3 H (27.0-33.0) pg MCHC 36.3 H (31.0-36.0) g/dl RDW 12.5 (11.0-16.0) % Plt Count 177 (160-400) X10*3/uL MPV 9.6 (9.4-12.4) fL Immature Gran % (Auto) 0.4 (0.0-0.4) % Neut % (Auto) 58.7 (45-73) % Lymph % (Auto) 24.1 (20-40) % [place] % (Auto) 14.7 H (2-11) % Eos % (Auto) 0.9 (0-4) % Baso % (Auto) 1.2 (0-2) % Lymph # (Auto) 1.9 (1.2-4.9) X10*3/uL [place] # (Auto) 1.1 (0.1-1.2) X10*3/uL Eos # (Auto) 0.1 (0.0-0.4) X10*3/uL Baso # (Auto) 0.1 (0.0-0.2) X10*3/uL Abs Immat Gran (auto) 0.03 (0.00-0.03) X10*3/uL Absolute Neuts (auto) 4.5 (2.0-8.3) x10*3/uL Absolute Nucleated RBC 0.000 (0.0-0.012) X10*3/uL Nucleated RBC % (auto) 0.0 (0.0-0.2) /100WBC Sodium 142 (135-145) mmol/L Potassium 3.2 L (3.3-5.1) mmol/L Chloride 101 (96-108) mmol/L Carbon Dioxide 28 (22-29) mmol/L Anion Gap 16 (12-20) BUN 7 L (9-16) mg/dL Creatinine 0.75 (0.5-1.4) mg/dL Estim Creat Clear Calc 118.4 Estimated GFR > 60 POC Glucose 159 H 65 (60-115) mg/dL Random Glucose 49 L* (60-115) mg/dL Calcium 9.0 (8.4-10.2) mg/dL Total Bilirubin 1.0 (0.0-1.0) mg/dL AST 401 H (5-37) U/L ALT 137 H (0-40) U/L Alkaline Phosphatase 203 H (39-117) U/L Total Protein 6.3 L (6.5-8.0) g/dL Albumin 3.5 (3.5-5.0) g/dL Lipase 17 (8-78) U/L Ethyl Alcohol 307 H* mg/dL 05/15/24 Range/Units 21:22 WBC (4.8-10.8) X10*3/uL RBC (4.60-5.80) X10*6/uL Hgb (14.0-18.0) g/dl Hct (42.0-52.0) % MCV (80.0-98.0) fL MCH (27.0-33.0) pg MCHC (31.0-36.0) g/dl RDW (11.0-16.0) % Plt Count (160-400) X10*3/uL MPV (9.4-12.4) fL Immature Gran % (Auto) (0.0-0.4) % Neut % (Auto) (45-73) % Lymph % (Auto) (20-40) % [place] % (Auto) (2-11) % Eos % (Auto) (0-4) % Baso % (Auto) (0-2) % Lymph # (Auto) (1.2-4.9) X10*3/uL [place] # (Auto) (0.1-1.2) X10*3/uL Eos # (Auto) (0.0-0.4) X10*3/uL Baso # (Auto) (0.0-0.2) X10*3/uL Abs Immat Gran (auto) (0.00-0.03) X10*3/uL Absolute Neuts (auto) (2.0-8.3) x10*3/uL Absolute Nucleated RBC (0.0-0.012) X10*3/uL Nucleated RBC % (auto) (0.0-0.2) /100WBC Sodium (135-145) mmol/L Potassium (3.3-5.1) mmol/L Chloride (96-108) mmol/L Carbon Dioxide (22-29) mmol/L Anion Gap (12-20) BUN (9-16) mg/dL Creatinine (0.5-1.4) mg/dL Estim Creat Clear Calc Estimated GFR POC Glucose 84 (60-115) mg/dL Random Glucose (60-115) mg/dL Calcium (8.4-10.2) mg/dL Total Bilirubin (0.0-1.0) mg/dL AST (5-37) U/L ALT (0-40) U/L Alkaline Phosphatase (39-117) U/L Total Protein (6.5-8.0) g/dL Albumin (3.5-5.0) g/dL Lipase (8-78) U/L Ethyl Alcohol mg/dL Discharge Plan Discharge Clinical Impression: Fall Patient Disposition: Still a Patient Prescriptions: No Action (DME) insulin syringe-needle U-100 [BD Insulin Syringe] 0.3 mL 29 gauge x 1/2 syringe See Rx Instructions .ROUTE .MEDSUPPLY Qty: 150 5RF Rx Instructions: 4 times a day (DME) pen needle, diabetic [BD Felisha 2nd Gen Pen Needle] 32 gauge x needle See Rx Instructions .ROUTE .MEDSUPPLY Qty: 50 4RF Rx Instructions: once a day (DME) Ketostix Strip See Rx Instructions .Route Qty: 50 6RF Rx Instructions: As directed (DME) 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 meter [FreeStyle Lite Meter] Kit See Rx Instructions .Route Qty: 1 0RF Rx Instructions: As directed-checks 4 X/day insulin glargine [Lantus Solostar U-100 Insulin] 100 unit/mL (3 mL) insulin pen 22 unit subcut QAM PRN (Reason: pump failure) 30 Days Qty: 3 1RF clonidine HCl 0.1 mg tablet 1 tab PO DAILY insulin lispro [Humalog U-100 Insulin] 100 unit/mL solution See Rx Instructions .ROUTE .COMPLEX Rx Instructions: INSULIN PUMP omeprazole 40 mg Capsule,Delayed Release(Dr/Ec) 40 mg PO BID@0630,1630 Qty: 180 0RF clonazepam 0.5 mg tablet 0.5 mg PO Q48H PRN (Reason: Anxiety) Rx Instructions: AT BEDTIME (DME) FreeStyle Lite Strips Strip See Rx Instructions .ROUTE .MEDSUPPLY Qty: 300 11RF Rx Instructions: 4x daily (DME) lancets [FreeStyle Lancets] 28 gauge misc See Rx Instructions .Route Qty: 100 5RF Rx Instructions: As directed 4 X/day lisinopril 5 mg tablet 5 mg PO DAILY cholecalciferol (vitamin D3) 50 mcg (2,000 unit) capsule 50 mcg PO DAILY Print Language: B[place]
[2024-05-15 17:17] LABS: MANUAL DIFF FLAG NO
--- NOTE | 2024-05-15 17:32 | ED_ITS ---
HPI - General Adult General Chief complaint: Fall Stated complaint: fell down stairs, hip and foot pain, BGL problem Time Seen by Provider: 05/15/24 17:03 History of Present Illness HPI narrative: Patient is a type 1 diabetic. Was trying to go to work when he fell down some stairs. Patient claims that he landed on the back of his head and also hit his right hip area. There was a flash but no loss of consciousness. He has not nauseous or vomiting. He did not have any new focal weakness. Now is complaining of pain in his right hip area. Patient has a long history of diabetes. No bowel urinary issues. Patient is from home. Related Data Home Medications ?Medication ?Instructions ?Recorded ?Confirmed clonazepam 0.5 mg tablet 0.5 mg PO Q48H PRN Anxiety 07/16/21 02/02/24 clonidine HCl 0.1 mg tablet 1 tab PO DAILY NXIETY 08/10/21 02/02/24 lisinopril 5 mg tablet 5 mg PO DAILY 10/30/22 02/02/24 insulin lispro 100 unit/mL See Rx Instructions .Route .COMPLEX 02/02/24 02/02/24 subcutaneous solution (Humalog U-100 Insulin) cholecalciferol (vitamin D3) 50 50 mcg PO DAILY 03/29/24 mcg (2,000 unit) capsule Previous Rx's ?Medication ?Instructions ?Recorded insulin syringe-needle U-100 0.3 #150 ea 08/29/20 mL 29 gauge x 1/2 (BD Insulin Syringe) pen needle, diabetic 32 gauge x #50 ea 08/29/20 5/32 (BD Felisha 2nd Gen Pen Needle) acetone (urine) test (Ketostix #50 ea 10/08/21 strips) 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 meter (FreeStyle #1 ea 10/22/22 Lite Meter kit) blood sugar diagnostic (FreeStyle #300 ea 02/19/23 Lite Strips) lancets 28 gauge (FreeStyle #100 ea 02/19/23 Lancets) omeprazole 40 mg capsule,delayed 40 mg PO BID@0630,1630 #180 caps 02/06/24 release insulin glargine 100 unit/mL (3 22 unit (0.22 mL) subcut QAM PRN 04/20/24 mL) subcutaneous pen (Lantus pump failure 30 days #3 mL Solostar U-100 Insulin) Allergies Allergy/AdvReac Type Severity Reaction Status Date / Time hydroxyzine [From VISTARIL] Allergy Intermediate RASH, Verified 05/15/24 16:43 ANXIOUS quetiapine [Seroquel] AdvReac Intermediate Unknown Verified 05/15/24 16:43 Review of Systems 2 Review of Systems: Positive back pain positive headache Yes all other systems are reviewed and are negative PMFSH Past Medical History Attestation statement: The following information was validated with the patient. Medical History Polysubstance abuse Osteoarthritis Type 1 diabetes History of drug abuse Depression Vitamin D deficiency 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 Mother No problems noted. Social History Social History Household Members: Family Household Members Other:: mother Housing: House Do you presently have visiting nurse or other home services: No Alcohol intake: former Patient Tobacco Use Status: Current everyday Tobacco user Tobacco use type: Cigarette Cigarettes Per Day: 3 Smoked in Last 30 Days: Yes e-Cigarette/Vaping Use: Currently Using Use of substances other than those prescribed or required for medical reasons: Yes Substance Use Type: Marijuana Substance Use Frequency: Daily Advance Directives: Yes Advance Directives on File: Yes Advance Directives Date on File: 08/29/20 Do you have a plan to hurt others: No Plan service: No Current occupational status: unemployed Physical Exam ED Vital Signs: Vital Signs - 24 hr 05/15/24 16:36 05/15/24 20:20 05/15/24 20:43 Temperature 97.7 F 97.9 F Pulse Rate 97 90 Respiratory Rate 17 18 18 Blood Pressure 149/79 H 146/99 H Pulse Oximetry 97 98 Oxygen Delivery Method Room Air Room Air 05/15/24 22:09 Temperature 98.0 F Pulse Rate 104 H Respiratory Rate 19 Blood Pressure 147/99 H Pulse Oximetry 98 Oxygen Delivery Method Room Air BMI result Body Mass Index 21.6 Appearance: Alert. Oriented X3. No acute distress. Eyes: Pupils equal, round and reactive to light. ENT: Pharynx normal. Neck: Normal inspection. Neck supple. No lymph nodes noted. No crepitus CVS: Normal heart rate and rhythm. Pulses normal. Normal S1 and S2 Respiratory: No respiratory distress. Breath sounds normal. No Wheezing. No rales Abdomen: Soft and nontender. No rigidity. No distention. good BS x4 Skin: Skin warm and dry. Normal skin color. Normal skin turgor. Extremities: Sensation to the bilateral lower extremity intact. Flexion extension of the knee grossly intact. No tenderness on palpation of the right hip. Patient does complaining of pain on movement. More distally pulses intact sensation intact Neuro: Oriented X 3. No motor deficit. No sensory deficit. Moving all extermities. No slurred speech Medications Administered Discontinued Medications Generic Name Dose Route Start Last Admin Trade Name Freq PRN Reason Stop Dose Admin Dextrose 25 gm 05/15/24 18:15 05/15/24 18:04 Dextrose 50 % 25 Gm/50 Ml Syringe IVPUSH 05/15/24 18:16 25 gm ONCE ONE Administration Hydromorphone HCl 0.5 mg 05/15/24 17:29 05/15/24 18:24 Hydromorphone Hcl 0.5 Mg/0.5 Ml Syringe IVPUSH 05/15/24 17:30 0.5 mg ONCE ONE Administration Protocol Hydromorphone HCl 0.5 mg 05/15/24 20:13 05/15/24 20:20 Hydromorphone Hcl 0.5 Mg/0.5 Ml Syringe IVPUSH 05/15/24 20:14 0.5 mg ONCE ONE Administration Protocol Iohexol 100 ml 05/15/24 18:12 05/15/24 18:13 Iohexol 350 Mg/Ml 100 Ml Infus..Btl IV 05/15/24 18:13 85 ml ONCE ONE Administration Ondansetron HCl 4 mg 05/15/24 17:30 05/15/24 18:24 Ondansetron Hcl 4 Mg/2 Ml Vial IVPUSH 05/15/24 17:31 4 mg ONCE ONE Administration Ondansetron HCl 4 mg 05/15/24 20:12 05/15/24 20:20 Ondansetron Hcl 4 Mg/2 Ml Vial IVPUSH 05/15/24 20:13 4 mg ONCE ONE Administration Ondansetron HCl 4 mg 05/15/24 23:59 05/16/24 00:06 Ondansetron Hcl 4 Mg/2 Ml Vial IVPUSH 05/16/24 00:00 4 mg ONCE ONE Administration Medical Decision Making Medical Decision Making [facility] Narrative: Patient presented today with falling down from a flight of stairs. He claims it is mechanical as he was carrying a laundry basket at that time. Hit his head hit his neck hit his back. CT scan of the head, C-spine, abdomen pelvis was negative for any acute traumatic injury. I interpreted the x-ray of the hip which was also grossly negative for fracture. Patient's lab showed a significantly elevated alcohol of 307. Also had periodic hypoglycemia while in the emergency department. Hemoglobin is baseline at 15. Monitored in the emergency department. Sugar trend. As patient did lower the basal rate of insulin from 1.5 unit/hour 2.5 unit/hour. Ask patient to very closely monitor his own sugar at home. A sugar has been maintaining at over 100 over the last few hours patient has been eating in the emergency department. Given some Zofran for nausea. He is in stable condition will discharge home with family. Explained to patient the need to stop drinking. He claims he was only drinking for pain Differential Diagnosis Differential Diagnoses: The differential diagnosis associated with the presentation includes Head injury, intracranial bleed, fracture, C-spine injury, traumatic injury to the abdomen pelvis. Admission/Observation Consideration of admission/observation: Escalation of care including admission/observation considered Lab Data [facility] Lab Attestation statement: I reviewed the patient's lab results. 05/15/24 17:12 05/15/24 17:12 Labs: Lab Results 05/15/24 05/15/24 05/15/24 Range/Units 17:12 18:00 20:09 WBC 7.7 (4.8-10.8) X10*3/uL RBC 4.15 L (4.60-5.80) X10*6/uL Hgb 15.5 (14.0-18.0) g/dl Hct 42.7 (42.0-52.0) % MCV 102.9 H (80.0-98.0) fL MCH 37.3 H (27.0-33.0) pg MCHC 36.3 H (31.0-36.0) g/dl RDW 12.5 (11.0-16.0) % Plt Count 177 (160-400) X10*3/uL MPV 9.6 (9.4-12.4) fL Immature Gran % (Auto) 0.4 (0.0-0.4) % Neut % (Auto) 58.7 (45-73) % Lymph % (Auto) 24.1 (20-40) % [place] % (Auto) 14.7 H (2-11) % Eos % (Auto) 0.9 (0-4) % Baso % (Auto) 1.2 (0-2) % Lymph # (Auto) 1.9 (1.2-4.9) X10*3/uL [place] # (Auto) 1.1 (0.1-1.2) X10*3/uL Eos # (Auto) 0.1 (0.0-0.4) X10*3/uL Baso # (Auto) 0.1 (0.0-0.2) X10*3/uL Abs Immat Gran (auto) 0.03 (0.00-0.03) X10*3/uL Absolute Neuts (auto) 4.5 (2.0-8.3) x10*3/uL Absolute Nucleated RBC 0.000 (0.0-0.012) X10*3/uL Nucleated RBC % (auto) 0.0 (0.0-0.2) /100WBC Sodium 142 (135-145) mmol/L Potassium 3.2 L (3.3-5.1) mmol/L Chloride 101 (96-108) mmol/L Carbon Dioxide 28 (22-29) mmol/L Anion Gap 16 (12-20) BUN 7 L (9-16) mg/dL Creatinine 0.75 (0.5-1.4) mg/dL Estim Creat Clear Calc 118.4 Estimated GFR > 60 POC Glucose 159 H 65 (60-115) mg/dL Random Glucose 49 L* (60-115) mg/dL Calcium 9.0 (8.4-10.2) mg/dL Total Bilirubin 1.0 (0.0-1.0) mg/dL AST 401 H (5-37) U/L ALT 137 H (0-40) U/L Alkaline Phosphatase 203 H (39-117) U/L Total Protein 6.3 L (6.5-8.0) g/dL Albumin 3.5 (3.5-5.0) g/dL Lipase 17 (8-78) U/L Ethyl Alcohol 307 H* mg/dL 05/15/24 05/15/24 Range/Units 21:22 23:51 WBC (4.8-10.8) X10*3/uL RBC (4.60-5.80) X10*6/uL Hgb (14.0-18.0) g/dl Hct (42.0-52.0) % MCV (80.0-98.0) fL MCH (27.0-33.0) pg MCHC (31.0-36.0) g/dl RDW (11.0-16.0) % Plt Count (160-400) X10*3/uL MPV (9.4-12.4) fL Immature Gran % (Auto) (0.0-0.4) % Neut % (Auto) (45-73) % Lymph % (Auto) (20-40) % [place] % (Auto) (2-11) % Eos % (Auto) (0-4) % Baso % (Auto) (0-2) % Lymph # (Auto) (1.2-4.9) X10*3/uL [place] # (Auto) (0.1-1.2) X10*3/uL Eos # (Auto) (0.0-0.4) X10*3/uL Baso # (Auto) (0.0-0.2) X10*3/uL Abs Immat Gran (auto) (0.00-0.03) X10*3/uL Absolute Neuts (auto) (2.0-8.3) x10*3/uL Absolute Nucleated RBC (0.0-0.012) X10*3/uL Nucleated RBC % (auto) (0.0-0.2) /100WBC Sodium (135-145) mmol/L Potassium (3.3-5.1) mmol/L Chloride (96-108) mmol/L Carbon Dioxide (22-29) mmol/L Anion Gap (12-20) BUN (9-16) mg/dL Creatinine (0.5-1.4) mg/dL Estim Creat Clear Calc Estimated GFR POC Glucose 84 138 H (60-115) mg/dL Random Glucose (60-115) mg/dL Calcium (8.4-10.2) mg/dL Total Bilirubin (0.0-1.0) mg/dL AST (5-37) U/L ALT (0-40) U/L Alkaline Phosphatase (39-117) U/L Total Protein (6.5-8.0) g/dL Albumin (3.5-5.0) g/dL Lipase (8-78) U/L Ethyl Alcohol mg/dL Independent Interpretation I performed an independent interpretation of an: EKG, Plain X-Ray (X-ray of the hip was grossly negative) and CT Scan (CT scan of the head and C-spine were both grossly negative) Radiology Impression Discussion of test interpretation with radiology: I have reviewed the radiologist's reading. Independent Historian Clinical information obtained from an independent historian. History obtained from or confirmed by: Spouse External Record Review External record reviewed: Inpatient record Chronic Conditions Patient?s care impacted by: Diabetes Social Determinants Patient?s care significantly limited by Social Determinants of Health including: Inadequate housing and Alcoholism and drug addiction in family Discharge Plan Discharge Clinical Impression: Fall, Alcohol intoxication, Hypoglycemia Patient Disposition: Home, Self-Care Instructions: Fall Prevention (ED), Alcohol Intoxication (ED) Additional Instructions: Please monitor your sugar very carefully over the next 3 days check his sugar 3 times a day. Lower your basal rate from 1.5 unit/hour to 0.5 unit/hour. Prescriptions: No Action (DME) insulin syringe-needle U-100 [BD Insulin Syringe] 0.3 mL 29 gauge x 1/2 syringe See Rx Instructions .ROUTE .MEDSUPPLY Qty: 150 5RF Rx Instructions: 4 times a day (DME) pen needle, diabetic [BD Felisha 2nd Gen Pen Needle] 32 gauge x 5/32 needle See Rx Instructions .ROUTE .MEDSUPPLY Qty: 50 4RF Rx Instructions: once a day (DME) Ketostix Strip See Rx Instructions .Route Qty: 50 6RF Rx Instructions: As directed (DME) 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 meter [FreeStyle Lite Meter] Kit See Rx Instructions .Route Qty: 1 0RF Rx Instructions: As directed-checks 4 X/day insulin glargine [Lantus Solostar U-100 Insulin] 100 unit/mL (3 mL) insulin pen 22 unit subcut QAM PRN (Reason: pump failure) 30 Days Qty: 3 1RF clonidine HCl 0.1 mg tablet 1 tab PO DAILY insulin lispro [Humalog U-100 Insulin] 100 unit/mL solution See Rx Instructions .ROUTE .COMPLEX Rx Instructions: INSULIN PUMP omeprazole 40 mg Capsule,Delayed Release(Dr/Ec) 40 mg PO BID@0630,1630 Qty: 180 0RF clonazepam 0.5 mg tablet 0.5 mg PO Q48H PRN (Reason: Anxiety) Rx Instructions: AT BEDTIME (DME) FreeStyle Lite Strips Strip See Rx Instructions .ROUTE .MEDSUPPLY Qty: 300 11RF Rx Instructions: 4x daily (DME) lancets [FreeStyle Lancets] 28 gauge misc See Rx Instructions .Route Qty: 100 5RF Rx Instructions: As directed 4 X/day lisinopril 5 mg tablet 5 mg PO DAILY cholecalciferol (vitamin D3) 50 mcg (2,000 unit) capsule 50 mcg PO DAILY Referrals: Physician,Unknown J [Primary Care Provider] - 05/18/24 Print Language: Urdu
[2024-05-15 17:38] LABS: Basophils Absolute Auto 0.1 X10*3/uL (0.0-0.2); Basophils Percent Auto 1.2 % (0-2); Eosinophils Absolute Auto 0.1 X10*3/uL (0.0-0.4); Eosinophils Percent Auto 0.9 % (0-4); Hematocrit 42.7 % (42.0-52.0); Hemoglobin 15.5 g/dl (14.0-18.0); Imm Gran Abs Auto 0.03 X10*3/uL (0.00-0.03); Imm Gran Pct Auto 0.4 % (0.0-0.4); Lymphocytes Absolute Auto 1.9 X10*3/uL (1.2-4.9); Lymphocytes Percent Auto 24.1 % (20-40); Mean Corpuscular HGB Conc 36.3 g/dl (31.0-36.0); Mean Corpuscular Hemoglobin 37.3 pg (27.0-33.0); Mean Corpuscular Volume 102.9 fL (80.0-98.0); Mean Platelet Volume 9.6 fL (9.4-12.4); Monocytes Absolute Auto 1.1 X10*3/uL (0.1-1.2); Monocytes Percent Auto 14.7 % (2-11); Neutrophils Absolute Auto 4.5 x10*3/uL (2.0-8.3); Neutrophils Percent Auto 58.7 % (45-73); Platelet Count 177 X10*3/uL (160-400); Red Blood Count 4.15 X10*6/uL (4.60-5.80); Red Cell Distribution Width 12.5 % (11.0-16.0); White Blood Count 7.7 X10*3/uL (4.8-10.8)
[2024-05-15 17:46] LABS: Ethanol 307 mg/dL
[2024-05-15 17:53] LABS: Alanine Aminotransferase 137 U/L (0-40); Albumin Level 3.5 g/dL (3.5-5.0); Alkaline Phosphatase 203 U/L (39-117); Anion Gap 16 (12-20); Aspartate Amino Transferase 401 U/L (5-37); Blood Urea Nitrogen 7 mg/dL (9-16); Carbon Dioxide 28 mmol/L (22-29); Chloride 101 mmol/L (96-108); Creatinine Clr Calc Pharmacy 118.4; Estimated Glomerular Filt Rate > 60; Glucose Random 49 mg/dL (60-115); Potassium 3.2 mmol/L (3.3-5.1); Sodium 142 mmol/L (135-145); Total Protein 6.3 g/dL (6.5-8.0)
[2024-05-15] MEDS: Dextrose 50 % 25 GM/50 ML SYRINGE IVPUSH (18:04)
--- NOTE | 2024-05-15 18:04 | PC.NURSE ---
late entry patient presented to ED with blood glucose of 49, D50 pulled from pyxis override per DR Escobar request. patient is alert and oriented x4. repeat poc 15 min later 159.
[2024-05-15 18:05] LABS: Glucose, Whole Blood 159 mg/dL (60-115)
[2024-05-15] MEDS: iohexoL 350 MG/ML 100 ML INFUS..BTL IV (18:13)
[2024-05-15] MEDS: ondansetron HCL 4 MG/2 ML VIAL IVPUSH ×2 (18:24→20:20)
[2024-05-15] MEDS: HYDROmorphone HCl 0.5 MG/0.5 ML SYRINGE IVPUSH ×2 (18:24→20:20)
[2024-05-15 18:30] LABS: Lipase 17 U/L (8-78)
[2024-05-15 20:13] LABS: Glucose, Whole Blood 65 mg/dL (60-115)
[2024-05-15 20:20] VITALS: RESP 18
[2024-05-15 20:43] VITALS: BP 146/99; PULSE 90; RESP 18; TEMP 36.6; O2SAT 98
--- NOTE | 2024-05-15 20:44 | MHC.EDTECH ---
This tech took over care of patient at 1900, rounds and vitals completed,call daniels in reach
--- NOTE | 2024-05-15 21:14 | PC.NURSE ---
POC 65. Dr. Stack notified, patient given lynda seferino per MD recommendations. Repeat POC 84. Dr. Stack notified.
--- NOTE | 2024-05-15 21:23 | MHC.EDTECH ---
Blood sugar taken and 84,RN was made aware
[2024-05-15 21:30] LABS: Glucose, Whole Blood 84 mg/dL (60-115)
[2024-05-15 22:09] VITALS: BP 147/99; PULSE 104; RESP 19; TEMP 36.7; O2SAT 98
--- NOTE | 2024-05-15 23:52 | MHC.EDTECH ---
Poc taken and is 138 RN Colleen aware
[2024-05-15 23:57] LABS: Glucose, Whole Blood 138 mg/dL (60-115)
[2024-05-16] MEDS: ondansetron HCL 4 MG/2 ML VIAL IVPUSH (00:06)
[2024-05-16 01:58] VITALS: BP 166/99; PULSE 103; RESP 16; TEMP 37.1; O2SAT 97
[2024-05-16 02:04] LABS: Glucose, Whole Blood 108 mg/dL (60-115)
[2024-05-16 03:42] VITALS: BP 166/99; PULSE 89; RESP 18; TEMP 36.8; O2SAT 98
== END 2024-05-16 03:43 | disposition home or self-care (01) ==
PROVIDERS: Physician Assistant; Emergency Provider Emergency Medicine Emergency Medical Services
DX: F10.129 Alcohol abuse with intoxication, unspecified (principal); Y90.8 Blood alcohol level of 240 mg/100 ml or more; M54.2 Cervicalgia; R51.9 Headache, unspecified; M25.551 Pain in right hip; R10.2 Pelvic and perineal pain; E11.649 Type 2 diabetes mellitus with hypoglycemia without coma; Z79.4 Long term (current) use of insulin; Z79.899 Other long term (current) drug therapy
CPT/HCPCS: 36415; 70450; 72125; 73502; 74177; 80053; 80307; 82947; 83690; 85025; 99284; J1170; J2405; Q9967

== ENCOUNTER 2024-07-20 08:01 | Outpatient (AMB) | payer MEDICAID, SELFPAY ==
--- NOTE | 2024-07-20 08:03 | A.OFFVIS_ITS ---
Vital Signs 07/20/24 08:10 Height 5 ft 11 in Weight 167 lb 8.821 oz BMI 23.4 BP 144/88 H Blood Pressure Location Rt brachial Position Sitting Pulse 95 Pulse Source Pulse Oximeter Intake Visit Reasons: T1DM/CONFIRMED Intake Note: Patient presents today for a follow-up on Type 1 Diabetes Mellitus: Last Diabetic eye exam was on: Has an appt in [facility] Last Podiatry exam was on: Does not see a Food Beverage Server Most recent HbA1c: 5.6%, 07/20/2024 Random Glucose- 117 mg/dL, Today Solar Electric/Photovoltaic Installer Required: No Accompanied by: Self / Same As Patient Allergies hydroxyzine [From [facility]] Allergy (Intermediate, Verified 07/20/24 08:03) RASH, ANXIOUS quetiapine [Seroquel] Adverse Reaction (Intermediate, Verified 07/20/24 08:03) Unknown HPI Comments Details: Patient is a 48 year old male with DM type 1 diagnosed at age 32 who presents for management of diabetes. He is on a Tandem T-Slim X2 with Control IQ Back up pump failure: Lantus 28 units once daily, short acting insulin by syringe for meal coverage tid. Basal rate(s) (units/hour) : 12 AM? to 6 AM? 0.4 units / hr 6 AM to 12 PM ? 1.2units / hr 12 PM to 6PM 1.2units/hr 6 PM to 12 AM ? 0.4 units / hr Bolus setting Insulin Carbohydrate Ratio (s)\ 12 AM to 12 PM 1:10 12 PM? to 4 PM? 1:10? 6 PM? to 12 AM? 1:10 Correction Factor / Sensitivity Factor 12 AM? to 12 AM? 1:50 Active Insulin Time:? 3 hours Target(s): Control IQ 12 AM? to 12 AM? 110 mg/dL When not in control IQ 12 AM? to 12 AM? 120 mg/dL Dexcom average glucose: 7.1 14 day continuous glucose monitor report reviewed Glucose Managment indicator 57 % Days with CGM data [93.7 ] % TIme in ranges: Eight % very high (above 250) 14 % high ?(181-250) 76 % in range ?(70-180] 2 % low (69-55) 0 % ?very low (below 54) Carb g per day 4824 hour I will recall indicates this is fairly accurate and he is in control IQ 95% of the time Interpretation [well-controlled with some lows at 15:00 which he attributes to exercise ] Symptoms reported: numbness, tingling, cramping in lower extremities Hypoglycemia: as above Exercise: each day Substance free for 15 years. Does attend meetings. Smokes 1 pack per day and is pre contemplative. 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 He is testing his blood pressure 3 times per week and most readings have been in good range with occasional higher reading. 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 Mother No problems noted. Social History Household Members: Family Household Members Other:: mother Housing: House Do you presently have visiting nurse or other home services: No Alcohol intake: former Patient Tobacco Use Status: Current everyday Tobacco user Tobacco use type: Cigarette Cigarettes Per Day: 3 e-Cigarette/Vaping Use: Currently Using Substance Use Type: Marijuana Advance Directives Date on File: 08/29/20 service: No Current occupational status: unemployed Physical Exam Vital Signs: Last Vital Signs Pulse 95 07/20/24 08:10 BP 144/88 H 07/20/24 08:10 BMI result Body Mass Index 23.4 Const Other: Absence of Cushingoid features. Absence of acromegalic features. Neck exam reveals nl size thyroid about 15 gms. No thyroid nodules palpable. . Heart S1 S2, Reg R/R. No M/R G. Skin exam reveals absence of vitiligo or acanthosis nigricans. No edema Visual exam of foot performed. No ulcerations or open lesions. No inter digit maceration or fissuring. No onychomycosis, mild callus 1st toe callous. Sensation intact to monofilament exam. Vibratory sensation is normal with 128 Hz tuning fork. Office Procedures Glucose Monitoring Details Details: See [facility] [id number] - Glucose monitoring, continuous-physician I&R Procedure code (CPT) selection complete Results AMB Hemoglobin A1c AMB Hemoglobin A1c 5.6 % Last Edit by OSMAN Sellers on 07/20/24 08:27 Results Reviewed Results Reviewed: Laboratory Last Values Glucose (Clinic) 117 mg/dL (60-115) H 07/20/24 08:18 Hgb A1c (Clinic) 5.6 % (4.0-6.0) 07/20/24 08:04 Assessment & Plan Assessment & Plan (1) Diabetes type 1, uncontrolled: Code(s): E10.65 - Type 1 diabetes mellitus with hyperglycemia Category: Medical Plan: see below Plan 48-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 He is having some 15:00 lows which occur after working out in the yard which she does several times per week. He was advised put his pump on exercise mode before starting to do yard work. He has follow-up with his in home sales consultant. BP elevated in clinic today but he reports his daily readings are more like 140/80 and we will follow up with Nephrology for this. He is due for a urine Orders: Orders Microalbumin, Random (w Creat) Today E10.65 - Type 1 diabetes mellitus with hyperglycemia AMB Hemoglobin A1c Today E10.65 - Type 1 diabetes mellitus with hyperglycemia Creatinine Urine Today E10.65 - Type 1 diabetes mellitus with hyperglycemia AMB Glucose Monitoring Today E10.65 - Type 1 diabetes mellitus with hyperglycemia Medications: Changed From insulin glargine (Lantus Solostar U-100 Insulin) 22 units (0.22 mL) subcut QAM 30 days PRN 3 mL 1RF pump failure To insulin glargine (Lantus Solostar U-100 Insulin) 20 units (0.2 mL) subcut QAM 30 days PRN 3 mL 2RF pump failure Patient Instructions: The patient was counseled to achieve a target A1C of 7% (154 avg). Fasting blood sugars should be 90-130 in the morning and less than 180 two hours after meals. Reviewed the relationship between poor diabetic control and the development of complications. The patient was counseled to always carry a source of sugar and on the rule of 15's: Take 3 glucose tablets and repeat again in 15 minutes if blood sugar is not in normal range. Continue to repeat every 15 minutes until blood sugar is normal. The patient was counseled to wear closed toe shoes, never walk barefooted and to inspect the feet daily. For any signs of infection or open wound patient should notify PCP or go to urgent care. Troubleshooting after starting new pod or inserting new insulin set: Occlusion, adhesive tape sensitivity, redness Check BG 2 hours after site change Safety information: Importance of a backup plan, for manual injections, proper prescriptions and emergency supplies ketone strips, and rules for testing for ketones a prescription for Lantus was sent to his pharmacy today for backup insulin. He has ketone test strips and nasal glucagon and his partner is also a type 1 in his knowledgeable in use Coding Level of Care Code Est Pt Level 4 (92558) Diagnoses Diabetes type 1, uncontrolled E10.65 CPT Codes Details - CPT: 60205 - Glucose monitoring, continuous-physician I&R ([id number]) Time Spent (min) 30 Comment Reviewing labs/provider notes, glucose sensor/pump reports, face to face, chart doc
[2024-07-20 08:10] VITALS: BP 144/88; PULSE 95; BMI 23.4
[2024-07-20 08:22] LABS: Glucose, Whole Blood 117 mg/dL (60-115)
== END 2024-07-20 08:55 | disposition home or self-care (01) ==
PROVIDERS: Visit Provider Nurse Practitioner Adult Health
DX: E10.65 Type 1 diabetes mellitus with hyperglycemia (principal)
CPT/HCPCS: 95251; 99214

== ENCOUNTER → 2024-07-20 08:01 | Outpatient (BNVA) | payer MEDICAID, SELFPAY | PROVIDERS: Visit Provider Nurse Practitioner Adult Health | DX: E10.65 Type 1 diabetes mellitus with hyperglycemia (principal) | CPT/HCPCS: 82947; 83036; 99212 ==

== ENCOUNTER 2024-10-21 18:21 | Emergency (ER) | payer OTHER, SELFPAY ==
--- NOTE | ~2024-10-21 | XR_ITS ---
CLINICAL HISTORY: pain, injury Left elbow four views Comparison: 02/20/2017 Findings: No acute fracture or dislocation noted. No significant joint effusion identified. No soft tissue foreign body. Impression: No acute bony abnormality This document has been electronically signed by: Fritz Vora MD on 10/21/2024 20:06:35
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
--- NOTE | ~2024-10-21 | XR_ITS ---
CLINICAL HISTORY: pain, injury Right hand three views Comparison: None Findings: No acute fracture or dislocation identified. No acute focal bony abnormality. Metallic density anterior to 3rd metacarpal head. Question acute versus chronic foreign body. Impression: Third digit foreign body, question acute versus chronic No acute bony abnormality This document has been electronically signed by: Fritz Vora MD on 10/21/2024 20:01:34
--- NOTE | ~2024-10-21 | XR_ITS ---
CLINICAL HISTORY: pain, injury Right knee four views Comparison: None Findings: No acute fracture or dislocation noted. No significant joint effusion identified. No soft tissue foreign body. Impression: No acute bony abnormality This document has been electronically signed by: Fritz Vora MD on 10/21/2024 20:01:55
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
[2024-10-21 18:48] VITALS: BP 182/92; PULSE 102; O2SAT 99
[2024-10-21 18:50] VITALS: BP 166/83; PULSE 75; RESP 16; TEMP 36.7; O2SAT 100; BMI 20.1
[2024-10-21 18:52] LABS: Glucose, Whole Blood 56 mg/dL (60-115)
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
[2024-10-21 18:53] VITALS: BP 166/83; PULSE 75; RESP 16; TEMP 36.7; O2SAT 100
[2024-10-21 19:35] LABS: Basophils Percent Auto 0.6 % (0-2); Eosinophils Absolute Auto 0.1 X10*3/uL (0.0-0.4); Hematocrit 39.4 % (42.0-52.0); Imm Gran Abs Auto 0.03 X10*3/uL (0.00-0.03); Imm Gran Pct Auto 0.4 % (0.0-0.4); Lymphocytes Percent Auto 13.7 % (20-40); MANUAL DIFF FLAG NO; Mean Corpuscular HGB Conc 35.5 g/dl (31.0-36.0); Mean Corpuscular Hemoglobin 36.2 pg (27.0-33.0); Mean Corpuscular Volume 101.8 fL (80.0-98.0); Mean Platelet Volume 9.8 fL (9.4-12.4); Monocytes Absolute Auto 0.8 X10*3/uL (0.1-1.2); Monocytes Percent Auto 10.7 % (2-11); Neutrophils Absolute Auto 5.3 x10*3/uL (2.0-8.3); Neutrophils Percent Auto 73.6 % (45-73); Platelet Count 151 X10*3/uL (160-400); Red Blood Count 3.87 X10*6/uL (4.60-5.80); Red Cell Distribution Width 12.6 % (11.0-16.0); White Blood Count 7.2 X10*3/uL (4.8-10.8)
[2024-10-21] MEDS: Dextrose 50 % 25 GM/50 ML SYRINGE IVPUSH (19:42)
[2024-10-21] MEDS: Morphine Sulfate 4 MG/ML CARTRIDGE IVPUSH (19:42)
[2024-10-21] MEDS: ondansetron HCL 4 MG/2 ML VIAL IVPUSH (19:42)
[2024-10-21 19:51] LABS: Alanine Aminotransferase 72 U/L (0-40); Albumin Level 3.5 g/dL (3.5-5.0); Alkaline Phosphatase 140 U/L (39-117); Anion Gap 12 (12-20); Aspartate Amino Transferase 120 U/L (5-37); Bilirubin Total 0.6 mg/dL (0.0-1.0); Blood Urea Nitrogen 8 mg/dL (9-16); Carbon Dioxide 32 mmol/L (22-29); Chloride 103 mmol/L (96-108); Creatinine Clr Calc Pharmacy 106.3; Estimated Glomerular Filt Rate > 60; Glucose Random 53 mg/dL (60-115); Magnesium 1.7 mg/dL (1.6-2.6); Potassium 3.6 mmol/L (3.3-5.1); Sodium 143 mmol/L (135-145); Total Protein 6.4 g/dL (6.5-8.0)
[2024-10-21 19:53] LABS: INTERNATIONAL NORM RATIO 1.1 (0.9-1.1); Prothrombin Time 12.3 SEC (10.9-12.4)
[2024-10-21 19:56] LABS: Partial Thromboplastin Time 27.9 SEC (26.0-36.8)
[2024-10-21 19:59] LABS: Troponin-I High Sensitivity < 2.7 ng/L (<3.5-35.0)
[2024-10-21 20:12] LABS: Influenza A PCR NEGATIVE (Negative); Influenza B PCR NEGATIVE (Negative); Resp Syncy Virus RNA Qual PCR NEGATIVE (Negative); SARS COV2 PCR INHOUSE NEGATIVE (Negative)
[2024-10-21] MEDS: iohexoL 350 MG/ML 100 ML INFUS..BTL IV (20:19)
[2024-10-21 20:28] LABS: Glucose, Whole Blood 178 mg/dL (60-115)
[2024-10-21 20:49] VITALS: BP 181/99; PULSE 81; RESP 14; TEMP 36.7; O2SAT 99
[2024-10-21] MEDS: Diphth,Pertus(ACell),Tet Adult 0.5 ML SYRINGE IM (21:24)
[2024-10-21] MEDS: Ketorolac Tromethamine 15 MG/ML VIAL IVPUSH (22:12)
[2024-10-21] MEDS: Cyclobenzaprine HCl 10 MG TABLET PO (22:12)
[2024-10-21 22:13] VITALS: BP 138/89; PULSE 88; RESP 16; TEMP 37.1; O2SAT 100
== END 2024-10-21 22:33 | disposition home or self-care (01) ==
PROVIDERS: Physician Assistant Medical; Emergency Provider Emergency Medicine
DX: S00.81XA Abrasion of other part of head, initial encounter (principal); E10.649 Type 1 diabetes mellitus with hypoglycemia without coma; R07.89 Other chest pain; M25.522 Pain in left elbow; R51.9 Headache, unspecified; M54.2 Cervicalgia; R10.2 Pelvic and perineal pain; I10 Essential (primary) hypertension; F17.210 Nicotine dependence, cigarettes, uncomplicated; V49.9XXA Car occupant (driver) (passenger) injured in unspecified traffic accident, initial encounter; Y93.89 Activity, other specified; Y92.488 Other paved roadways as the place of occurrence of the external cause; Y99.8 Other external cause status; Z03.818 Encounter for observation for suspected exposure to other biological agents ruled out; Z23 Encounter for immunization; Z79.4 Long term (current) use of insulin; Z79.899 Other long term (current) drug therapy; Z96.41 Presence of insulin pump (external) (internal)
CPT/HCPCS: 0241U; 70450; 71260; 72125; 73080; 73130; 73564; 74177; 80053; 82947; 83735; 84484; 85025; 85610; 85730; 90715; 93005; 99284; J1885; J2270; J2405; Q9967

== ENCOUNTER → 2024-10-21 18:30 | Outpatient (BNV) | payer MEDICAID, SELFPAY | PROVIDERS: Emergency Provider Emergency Medicine; Visit Provider Radiology Diagnostic Radiology | DX: R10.9 Unspecified abdominal pain (principal); R07.9 Chest pain, unspecified; M54.2 Cervicalgia; S09.90XA Unspecified injury of head, initial encounter; M25.561 Pain in right knee; M25.522 Pain in left elbow; M79.641 Pain in right hand | CPT/HCPCS: 70450; 71260; 72125; 73080; 73130; 73564; 74177 ==

== ENCOUNTER → 2024-10-21 18:31 | Outpatient (BNV) | payer MEDICAID, SELFPAY | PROVIDERS: Emergency Provider Emergency Medicine; Visit Provider Internal Medicine | DX: E10.649 Type 1 diabetes mellitus with hypoglycemia without coma (principal); I10 Essential (primary) hypertension | CPT/HCPCS: 93010 ==

== ENCOUNTER 2024-11-02 08:30 | Outpatient (AMB) | payer MEDICAID, SELFPAY ==
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
[2024-11-02 08:38] VITALS: BP 138/90; PULSE 94; BMI 23.4
[2024-11-02 08:45] LABS: Glucose, Whole Blood 111 mg/dL (60-115)
== END 2024-11-02 09:17 | disposition home or self-care (01) ==
PROVIDERS: Visit Provider Nurse Practitioner Adult Health
DX: E10.65 Type 1 diabetes mellitus with hyperglycemia (principal); R74.01 Elevation of levels of liver transaminase levels
CPT/HCPCS: 95251; 99215; G2211

== ENCOUNTER → 2024-11-02 08:30 | Outpatient (BNVA) | payer MEDICAID, SELFPAY | PROVIDERS: Visit Provider Nurse Practitioner Adult Health | DX: E10.65 Type 1 diabetes mellitus with hyperglycemia (principal); R79.89 Other specified abnormal findings of blood chemistry | CPT/HCPCS: 82947; 83036; 99212 ==

== ENCOUNTER 2024-11-30 08:29 | Outpatient (AMB) | payer MEDICAID, SELFPAY ==
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
--- OUTSIDE RECORDS SUMMARY | 2024-11-30 08:31 | XMS_ITS | Encounter Summary ---
Author Organization [facility] Address [address] [place] [address] Phone Care Team Providers Care Reel Cutter Name Role Phone Niru Crawford Primary Care Provider [phone] Encounter Details Date Type Department Care Team (Late st Contact Info) Description 11/08/2024 2:20 PM EST Office Visit [facility] [address] [place] [address] Juan Yee MD [address] [place] [address] Proteinuria, not otherwise specified (Primary Dx) Social History Tobacco Use Types Packs/Day Years Used Date Smoking Tobacco: Never Smokeless Tobacco: Never Sex and Gender Information Value Date Recorded Sex Assigned at Not on file Legal Sex Male 3:11 PM EST Gender Identity Not on file Sexual Orientation Not on file documented as of this encounter Progress Notes * Juan Yee MD - 11/08/2024 2:20 PM EST Images from the original note were not included. PATIENT: Edu Mccloud : 1975 ENCOUNTER: 11/08/2024 PCP: Linda Carrasquillo NP HPI: Edu Mccloud is a 49 y.o. year old male with a history of type 1 diabetes diagnosed at 15 years of age, depression, preserved renal function and substance use disorder who now presents for further evaluation of his persistent microalbuminuria. Thankfully the patient is doing quite well without any new complaints. His energy level is excellent. He denies any chest pain or shortness of breath. As you know the patient has a history of longstanding diabetes which has more recently been wonderfully controlled with a multifaceted drug regimen and incredible adherence from the patient. Upon this background the patient is followed by an excellent operations accountant and was noted to have persistent microalbuminuria which led to his referral. The patient has never been told of pre-existing renal disease. He has been very compliant with his medical regimen. He denies any consistent nonsteroidal use. There is been no urinary symptoms. He denies any systemic symptoms. The patient is never been told of acute kidney injury. There is no significant systemic symptoms. His review of systems otherwise negative when it system is reviewed in detail. ROS: Constitutional: No fever. Respiratory: No shortness of breath. Cardiovascular: No chest pain. Gastrointestinal: No abdominal pain, nausea or vomiting. Genitourinary: No hematuria. All other systems reviewed and are negative. PAST MEDICAL HISTORY: Patient Active Problem List Diagnosis Date Noted Proteinuria, not otherwise specified 04/06/2024 Essential hypertension 08/27/2022 Acute exacerbation of chronic obstructive pulmonary disease (HCC) 03/21/2022 Cervical spinal cord injury (HCC) 05/22/2020 Type 1 diabetes mellitus with diabetic neuropathy ([facility]) 09/24/2017 Other specified joint disorder of right hip 09/24/2017 Other specified joint disorder of left hip 09/24/2017 Insomnia 09/24/2017 Gastro-esophageal reflux disease without esophagitis 09/24/2017 Depressive disorder 09/24/2017 Anxiety 09/24/2017 PAST SURGICAL HISTORY: History reviewed. No pertinent surgical history. SOCIAL HISTORY: Social History Tobacco Use Smoking status: Never Smokeless tobacco: Never Substance Use Topics Alcohol use: Not on file FAMILY HISTORY: Family History Family history unknown: Yes MEDICATIONS: Outpatient Encounter Medications as of 11/08/2024 Medication Sig Dispense Refill albuterol HFA (PROVENTIL HFA;VENTOLIN HFA) 108 (90 Base) MCG/ACT inhaler Inhale 2 puffs Cholecalciferol 100 MCG (4000 UT) tablet Take 1,000 Units by mouth in the morning. clonazePAM (KlonoPIN) 0.5 MG tablet Take 0.5 mg by mouth cloNIDine (CATAPRES) 0.1 MG tablet Take 0.1 mg by mouth in the morning. Fluticasone-Salmeterol (Advair Diskus) 250-50 MCG/ACT aerosol powder INHALE 1 PUFF INTO THE LUNGS TWICE DAILY Diagnosis Unavailable Inhalation for 30 Insulin Lispro (HumaLOG) 100 UNIT/ML solution Subcutaneous lamoTRIgine (LaMICtal) 100 MG tablet Take 100 mg by mouth in the morning. lisinopril 5 MG tablet Oral for 90 omeprazole (PriLOSEC) [address] capsule Oral No facility-administered encounter medications on file as of 11/08/2024. MEDICATION REVIEW: I have reviewed the patient's current medications. ALLERGIES: is allergic to hydroxyzine and quetiapine. PHYSICAL EXAM: There were no vitals taken for this visit. Constitutional: No apparent distress Cardiovascular: No friction rub. Pulmonary/Chest: No rales. Abdominal: Soft and non-tender. Extremities: Edema None LABS: No lab exists for component: LABALBU No lab exists for component: [facility] REVIEW: I have reviewed the labs noted above as well as in the chart, in CIS and in Care Everywhere. DOCUMENTATION REVIEW: I have reviewed the applicable outside notes located in the chart, in CIS and in Care Everywhere. ASSESSMENT: 1. Proteinuria, not otherwise specified Delightful 48-year-old gentleman with a history of longstanding type 1 diabetes in the setting of depression and substance use disorder who now presents for further evaluation of his microalbuminuria. At this point the patient's current medical issues include 1. Back pain-likely musculoskeletal-The patient's symptoms have improved significantly and as such he will continue to monitor 2. Microalbuminuria-Currently the patient's blood pressure control and medical regimen appear quiteappropriate. Have asked him to undergo repeat lab testing to quantitate his urine protein excretion. I appreciate your allowing me to participate in this kind patient's care. I hope all is well. No orders of the defined types were placed in this encounter. documented in this encounter Plan of Treatment Upcoming Encounters Date Type Department Care Team (Late st Contact Info) Description 02/14/2025 9:40 AM EDT Office Visit [facility] [place], [address] [place] [address] Juan Yee MD [address] [place] [address] documented as of this encounter Visit Diagnoses Diagnosis Proteinuria, not otherwise specified- Primary documented in this encounter Care Teams Reel Cutter Relationship Specialty Start Date End Date Niru Crawford [address] [place] [address] PCP - General 11/08/24 documented as of this encounter
--- OUTSIDE RECORDS SUMMARY | 2024-11-30 08:32 | XMS_ITS ---
Author Organization [facility] Address [address] [place] [address] Care Team Providers Care Repairer Finished Metal Name Role Phone Linda Carrasquillo NP Primary Care Provider Hank Corral [phone] PROBLEMS Problem Type ICD Code Onset Dates Problem Status W/U Status Risk SNOMED Code Notes Problem Gastritis, chronic (K29.50) Active confirmed Chronic gastritis (3137929) Encounters Encounter Location Date Provider Diagnosis [facility] [place] [address] [place], [place] [id number] 02/04/2024 Hank Stanford PLAN OF TREATMENT No Information
--- OUTSIDE RECORDS SUMMARY | 2024-11-30 08:32 | XMS_ITS ---
Author Organization [facility] Address [address] [place] [address] Care Team Providers Care Negative Developer Name Role Phone Neida DUNAWAY, Linda Primary Care Provider Hank Corral [phone] ALLERGIES Allergen (clinical drug ingredient) Drug/Non Drug Allergy documented on EMR Reaction Allergy Type Onset Date Status hydroxyzine Vistaril Unknown Drug Allergy Activ e quetiapine SEROquel Unknown Drug Allergy Active REASON FOR VISIT Patient presents today for erosive esophagitis MEDICATIONS Medication SIG (Take, Route, Frequency, Duration) Notes Start Date End Date Status Insulin Lispro 100 UNIT/ML Injection for 30 Active Lisinopril 5 MG Oral for 90 Ac tive Advair Diskus 250-50 MCG/ACT INHALE 1 PUFF INTO THE LUNGS TWICE DAILY Diagnosis Unavailable Inhalation for 30 Active Tresiba FlexTouch 100 UNIT/ML Subcutaneous Not-Taking Omeprazole 40 MG Oral Act tessie cloNIDine HCl Active clonazePAM Active HumaLOG 100 UNIT/ML Subcutaneous Active SOCIAL HISTORY Tobacco Use: Social History Observation Description Date Details (start date - stop date) Current Smoker NA - NA Sex Assigned At : Social History Observation Description Sex Assigned At Unknown Tobacco Use/Smoking Question Answer Notes Patient is a current smoker How often do you smoke cigarettes? every day How many cigarettes a day do you smoke? 5 or les s How soon after you wake up do you smoke your fir st cigarette? 31-60 minutes Are you interested in quitting? Ready to quit Alcohol Screen Question Answer Notes Did you have a drink containing alcohol in the p ast year? No Points 0 Interpretation Negative PROBLEMS Problem Type ICD Code Onset Dates Problem Status W/U Status Risk SNOMED Code Notes Problem Erosive esophagitis (K22.10) Active confirmed 18572150 VITAL SIGNS BMI 21.62 kg/m2 08/27/2023 Blood pressure systolic 00 mm Hg 08/27/20 23 Blood pressure diastolic 00 mm Hg 023 Height 71 in 08/27/2023 Temperature 96.4 degrees Fahrenheit 08/27/20 23 Weight 155 lbs 08/27/2023 Encounters Encounter Location Date Provider Diagnosis [facility] [address] [place] [address] 08/27/2023 Hank Stanford Erosive esophagitis K22.10 ASSESSMENTS Encounter Date Diagnosis Assessment Notes Treatment Notes Treatment Clinical Notes 08/27/2023 Erosive esophagitis (ICD-10 - K22.10) 08/27/2023 Other Repeat colonosc opy in 03/2033 PLAN OF TREATMENT Medication Medication Name Sig Start Date Stop Date Notes Omeprazole 40 MG Oral Treatment Notes Assessment Notes Other Repeat colonoscopy i n 03/2033 Future Test Test Name Order Date UPPER GI ENDOSCOPY 08/27/2023 Next Appt Details Follow Up: prn, Reason: Progress Notes * Examination Category Sub-Category Detail Notes General Examination GENERAL APPEARANCE: pleasant , well nourished, well developed, in no acute distress HEAD: EYES: sclera non-icteric EARS: NOSE: THROAT: NECK/THYROID: no cervical lymphade nopathy, neck supple HEART: S1, S2 normal CHEST: LUNGS: clear to auscultatio n bilaterally ABDOMEN: normal bowel sounds, no guarding or rigidity, no guarding or rigidity, no masses palpable, soft, nontender, nondistended NEUROLOGIC: alert and oriented SKIN: nonjaundiced, no spi lynda angiomata EXTREMITIES: no edema PERIPHERAL PULSES: BACK: BREASTS: MUSCULOSKELETAL: MALE GENITOURINARY: LYMPH NODES: RECTAL EXAM: FEMALE GENITOURINARY: ORAL CAVITY: mucosa moist
--- OUTSIDE RECORDS SUMMARY | 2024-11-30 08:32 | XMS_ITS ---
Author Organization [facility] Address [address] [place] [address] Care Team Providers Care Toll Service Observer Name Role Phone Linda Carrasquillo NP Primary Care Provider Hank Corral [phone] REASON FOR VISIT erosive esophagitis Encounters Encounter Location Date Provider Diagnosis [facility] [place] [address] [place], [place] [id number] 11/16/2023 Hank Stanford Other specified di sease of esophagus K22.89 ; Gastritis K29.70 ; Hiatal hernia K44.9 and Erosive esophagitis K22.10 ASSESSMENTS Encounter Date Diagnosis Assessment Notes Treatment Notes Treatment Clinical Notes 11/16/2023 Other specified disease of esophagus (ICD-10 - K22.89) 11/16/2023 Gastritis (ICD-10 - K29.70) 11/16/2023 Hiatal hernia (ICD-10 - K44.9) 11/16/2023 Erosive esophagitis (ICD-10 - K22.10) PLAN OF TREATMENT No Information
--- OUTSIDE RECORDS SUMMARY | 2024-11-30 08:32 | XMS_ITS | Patient Health Record ---
Author Organization [facility] Address [address] [place] [address] Care Team Providers Care Contractor Field Hauling Name Role Phone Linda Carrasquillo NP Primary Care Provider Hank Corral [phone] ALLERGIES Allergen (clinical drug ingredient) Drug/Non Drug Allergy documented on EMR Reaction Allergy Type Onset Date Status hydroxyzine Vistaril Unknown Drug Allergy Activ e quetiapine SEROquel Unknown Drug Allergy Active RESULTS Component Value Reference Range Notes Pathology Reviewed date:02/05/2024 03:29:18 PM Interpretation: Performing Lab:[facility], [address] [place] [phone] Notes/Report: REASON FOR REFERRAL No Information MEDICATIONS Medication SIG (Take, Route, Frequency, Duration) Notes Start Date End Date Status Insulin Lispro 100 UNIT/ML Injection for 30 Active Lisinopril 5 MG Oral for 90 Ac tive Advair Diskus 250-50 MCG/ACT INHALE 1 PUFF INTO THE LUNGS TWICE DAILY Diagnosis Unavailable Inhalation for 30 Active Omeprazole 40 MG Oral Act tessie Tresiba FlexTouch 100 UNIT/ML Subcutaneous Not-Taking cloNIDine HCl Active clonazePAM Active HumaLOG 100 UNIT/ML Subcutaneous Active IMMUNIZATIONS Vaccine Route Administration Date Status Comme nts Influenza Unknown 06/12/2022 Administered SOCIAL HISTORY Tobacco Use: Social History Observation [...] W/U Status Risk SNOMED Code Notes Problem Idiopathic acute pancreatitis without infection or necrosis (K85.00) Active confirmed 501877504 Problem Elevated liver function tests (R79.89) Active confirmed 855503448 Problem Colon cancer screening (Z12.11) Active confirmed 203882117 Problem Abnormal CT scan, esophagus (R93.3) Active confirmed 510529451 Problem Diverticulosis of large intestine without perforation or abscess without bleeding (K57.30) Active confirmed Diverticul ar disease of colon (220097230) Problem Gastro-esophageal reflux disease with esophagitis, without bleeding (K21.00) Active confirmed Gastroesophagea l reflux disease with esophagitis (disorder) (009570471) Problem Gastritis (K29.70) Active confirmed Gastritis (6423594) Problem Erosive esophagitis (K22.10) Active confirmed 07978092 Problem Gastritis, chronic (K29.50) Active confirmed Chronic gas tritis (7358270) Encounters Encounter Location Date Provider Diagnosis [facility] [place] Out[place] [address] [place] [phone] 02/04/2024 Hank Stanford PLAN OF TREATMENT Pending Test Test Name Order Date LIVER PROFILE 01/06/2023 IRON + IBC (FE) 01/06/2023 CBC w DIFF 01/06/2023 HEPATITIS B, C PROFILE 01/06/2023 Prothrombin Time INR 01/06/2023 Ferritin 01/06/2023 Liver Fibrosis Pnl 01/06/2023 Future Test Test Name Order Date COLONOSCOPY 01/06/2023 UPPER GI ENDOSCOPY 01/18/2023 UPPER GI ENDOSCOPY 08/27/2023 Insurance Providers Payer Name Payer Address Payer Phone Subscriber Number Group Number Insured Name Patient Relationship to Insured Coverage Start Date Coverage End Date [employer] [address] [place] [id number] GRAHAM MCINTOSH Self - patient is the insured MEDICAID OF [facility] [address] [place] [phone] [id number] BOLTON Self - patient is the insured MEDICAL (GENERAL) HISTORY Medical History History ICD Code IDDM--has an Insulin pump Denies FL,CVA,Lung disease,renal disease Anxiety/Depression/PTSD Arthritis Substance and alcohol abuse with recovery as below--reports Hep C was negative; previously on Methadone. However, despite reported sobriety he did have a positive urine toxicology screen for cocaine in 2019 and a blood alcohol level of 360 in 2021 Sinus/Allergies Elevated LFTs Screening colonoscopy in Mar was negative other than hyperplastic polyps Upper endoscopy in March revealed erosive esophagitis and biopsies negative for Grigsby's esophagus; gastric biopsies were negative for H. pylori. Surgical History Surgery Date(Month/Year) Hernia repair as an
--- OUTSIDE RECORDS SUMMARY | 2024-11-30 08:32 | XMS_ITS | Encounter Summary ---
Author Organization [facility] Address [address] [place] [address] Phone Care Team Providers Care Family Support Worker Name Role Phone Linda Carrasquillo NP Primary Care Provider Sara wen Encounter Details Date Type Department Care Team (Late st Contact Info) Description 11/04/2024 Telephone [facility] [address] [place] [address] Shalini Hooper [place] [address] [place] [address] Social History Tobacco Use Types Packs/Day Years Used Date Smoking Tobacco: Never Smokeless Tobacco: Never Sex and Gender Information Value Date Recorded Sex Assigned at Not on file Legal Sex Male 3:11 PM EST Gender Identity Not on file Sexual Orientation Not on file documented as of this encounter Miscellaneous Notes * Telephone Encounter - Shalini Hooper MA - 11/04/2024 9:37 AM EST Made a physical therapy appt for 11/18/2024 at 9:00 a lucio faxed [phone] pt aware documented in this encounter Plan of Treatment Upcoming Encounters Date Type Department Care Team (Late st Contact Info) Description 02/14/2025 9:40 AM EDT Office Visit [facility] [address] [place] [address] Juan Yee MD [address] [place] [address] documented as of this encounter Visit Diagnoses Not on filedocumented in this encounter Care Teams Family Support Worker Relationship Specialty Start Date End Date Linda Carrasquillo NP PCP - General Nurse Practitioner 09/29/23 11/07/24 documented as of this encounter
--- OUTSIDE RECORDS SUMMARY | 2024-11-30 08:32 | XMS_ITS | Encounter Summary ---
Author Organization [facility] Address [address] [place] [address] Phone Care Team Providers Care Polysomnographic Technologist Name Role Phone Niru Crawford Primary Care Provider [phone] Encounter Details Date Type Department Care Team (Late st Contact Info) Description 09/30/2023 Documentation Only [facility] [address] [place] [place] [phone] Linda Carrasquillo NP Social History Tobacco Use Types Packs/Day Years Used Date Smoking Tobacco: Never Assessed Sex and Gender Information Value Date Recorded Sex Assigned at Not on file Legal Sex Male 3:11 PM EST Gender Identity Not on file Sexual Orientation Not on file documented as of this encounter Plan of Treatment Upcoming Encounters Date Type Department Care Team (Late st Contact Info) Description 02/14/2025 9:40 AM EDT Office Visit [facility] [address] [place] [phone] Juan Yee MD [address] [place] [address] [place] [phone] documented as of this encounter Visit Diagnoses Not on filedocumented in this encounter Care Teams Polysomnographic Technologist Relationship Specialty Start Date End Date Niru Crawford [address] [facility] [place] [address] PCP - General 11/08/24 documented as of this encounter
--- OUTSIDE RECORDS SUMMARY | 2024-11-30 08:32 | XMS_ITS | Clinical Summary ---
Author Organization [facility], Address [address] [place] [address] [place] [address] Phone Care Team Providers Care Grades 7 And 8 Visiting Teacher Name Role Phone Niru Crawford Primary Care Provider [phone] Allergies Active Allergy Reactions Criticality Noted Date Comments Hydroxyzine Other (see comments),Rash Low 09/14/2017 Skin feels funny/fidgety Quetiapine Anxiety,Other (see comments) Low 03/19/2023 Medications omeprazole (PriLOSEC) [address] capsule Oral Active lisinopril 5 MG tablet Oral for 90 2 Active lamoTRIgine (LaMICtal) 100 MG tablet Take 100 mg by mouth in the morning. 3 Active Insulin Lispro (HumaLOG) 100 UNIT/ML solution Subcutaneous 9 Active Fluticasone-Jimmie meterol (Advair Diskus) 250-50 MCG/ACT aerosol powder INHALE 1 PUFF INTO THE LUNGS TWICE DAILY Diagnosis Unavailable Inhalation for 30 2 Active cloNIDine (CATAPRES) 0.1 MG tablet Take 0.1 mg by mouth in the morning. 1 Active clonazePAM (KlonoPIN) 0.5 MG tablet Take 0.5 mg by mouth 3 Active Cholecalciferol 100 MCG (4000 UT) tablet Take 1,000 Units by mouth in the morning. Active albuterol HFA (PROVENTIL HFA;VENTOLIN HFA) 108 (90 Base) MCG/ACT inhaler Inhale 2 puffs 2 Active Active Problems Problem Noted Date Diagnosed Date Proteinuria, not otherwise specified 04/06/2024 Essential hypertension 08/27/2022 Acute exacerbation of chronic obstructive pulmon omar disease 03/21/2022 Overview (11/20/2023): Last Assessment & Plan: Long discussion regarding nature of disease Smoking likely contributing and aggravating symptoms Stressed need for cessation Discussed cessation options He currently declines MAT for smoking cessation Active wheezing Probable bronchitis Educated extensively on inhaler use To ER for severe sxs 5 minutes spent on MAT for tobacco Cervical spinal cord injury 05/22/2020 Overview (11/20/2023): Last Assessment & Plan: There are no overt signs both to consciousness but also upper body strength that the cord injury has resulted in paresis or spasticity. Nonetheless the patient has been encouraged to continue the dexamethasone and will follow up with the neurologist that was mentioned above. We will set up the referral so that the appointment can be honored. Type 1 diabetes mellitus with diabetic neuropath y 09/24/2017 Overview (11/20/2023): Last Assessment & Plan: Excellent control on Insulin pump F/u endo Other specified joint disorder of right hip 09/11 Other specified joint disorder of left hip 09/24 Insomnia 09/24/2017 Gastro-esophageal reflux disease without esophag itis 09/24/2017 Depressive disorder 09/24/2017 Anxiety 09/24/2017 Encounters Date Type Department Care Team Description 11/08/2024 2:20 PM EST Office Visit [facility] [address] [place] [address] Juan Yee MD Proteinuria, not otherwise specified (Primary Dx) 11/04/2024 Telephone [facility] Of [address] [place] [address] [place] [address] Shalini Hooper MA 09/27/2024 3:00 PM EST Office Visit [facility] [address] [place] [address] Juan Yee MD Type 1 diabetes mellitus with other diabetic neurological complication (HCC) (Primary Dx); Proteinuria, not otherwise specified from Last 3 Months Immunizations Name Administration Dates Next Due Influenza (IM) Preservative Free 09/18/2016,07/12 Influenza, Injectable, Madin Callie Canine Kidney, Preservative Free 09/01/2013 Influenza, MDCK, PF, Quadrivalent 08/09/2022,06/2020 Influenza, Quadrivalent, Pre servative Free 08/23/2021,09/30/2019,07/15/2018,09/09 Influenza, Unspecified 07/18/2009 Pneumococcal Conjugate 13-Valent 08/18/2008 Pneumococcal Polysaccharide 09/22/2019 Tdap 04/21/2020 Social History Tobacco Use Types Packs/Day Years Used Date Smoking Tobacco: Never Smokeless Tobacco: Never Tobacco Cessation:Counseling Given: Not Answered Sex and Gender Information Value Date Recorded Sex Assigned at Not on file Legal Sex Male 3:11 PM EST Gender Identity Not on file Sexual Orientation Not on file Plan of Treatment Upcoming Encounters Date Type Department Care Team (Late st Contact Info) Description 02/14/2025 9:40 AM EDT Office Visit [facility] [address] [place] [phone] Juan Yee MD [address] [place] [address] [place] [address] Health Maintenance Due Date Last Done Comments Hepatitis B Vaccine (1 of 3 - 19+ 3-dose series) 1993 Diabetes: Hemoglobin A1C 09/30/2023 Diabetes: Ophthalmology Exam 09/30/2023 Diabetes: Pedal Pulse Checked 09/30/2023 Diabetes: Sensory Foot Exam 09/30/2023 Diabetes: Visual Foot Exam 09/30/2023 Colorectal Cancer Screening: Annual FOBT 2023 Colorectal Cancer Screening: Colonoscopy 2023 Colorectal Cancer Screening: Sigmoidoscopy 2023 Pneumococcal Vaccine: Pediat rics (0 to 5 Years) and At-Risk Patients (6 to 64 Years) (4 of 4 - PPSV23 or PCV20) 2039 09/22/2019, 09/04/2010, 08/18/2008 Influenza Vaccine Completed 07/20/2024, , 08/09/2022, Additional history exists Insurance [facility] Care Teams Grades 7 And 8 Visiting Teacher Relationship Specialty Start Date End Date Niru Crawford [address] [place] [address] PCP - General 11/08/24
[2024-11-30 08:33] VITALS: BP 122/74; PULSE 86; BMI 23.4
[2024-11-30 08:48] LABS: Glucose, Whole Blood 116 mg/dL (60-115)
== END 2024-11-30 09:07 | disposition home or self-care (01) ==
PROVIDERS: Visit Provider Nurse Practitioner Adult Health
DX: E10.65 Type 1 diabetes mellitus with hyperglycemia (principal); I73.9 Peripheral vascular disease, unspecified
CPT/HCPCS: 95251; 99215; 99417; G2211

== ENCOUNTER → 2024-11-30 08:29 | Outpatient (BNVA) | payer MEDICAID, SELFPAY | PROVIDERS: Visit Provider Nurse Practitioner Adult Health | DX: E10.65 Type 1 diabetes mellitus with hyperglycemia (principal); E10.51 Type 1 diabetes mellitus with diabetic peripheral angiopathy without gangrene | CPT/HCPCS: 82947; 99212 ==

== ENCOUNTER 2024-12-22 10:49 | Outpatient (REF) | payer MEDICAID, SELFPAY ==
--- NOTE | ~2024-12-22 | US_ITS ---
CLINICAL HISTORY: I73.9 - Peripheral vascular disease, unspecified Ankle-brachial index Comparison: None Findings: Right brachial artery 158 mmHg Right posterior tibial artery 118 mmHg Right dorsalis pedis artery 145 mmHg Right PAOLA:0.92 Left brachial artery 78 mmHg Left posterior tibial artery 99 mmHg Left dorsalis pedis artery 86 mmHg Left PAOLA:0.63 PAOLA and estimated severity of disease: 0.96 - 1.30 generally normal. 0.81 - 0.95 mild disease. 0.51 - 0.80 moderate disease. 0.31 - 0.50 moderate to severe disease. < 0.30 severe disease. Impression: 1. Right PAOLA 0.92 reflecting mild disease. 2. Left PAOLA 0.63 reflecting moderate disease. This document has been electronically signed by: Travon Oliver MD on 12/23/2024 10:44:19
--- OUTSIDE RECORDS SUMMARY | 2024-12-22 13:47 | XMS_ITS ---
Author Organization [facility] Address [address] [place] [address] Care Team Providers Care Pressure Vessel Inspector Name Role Phone Neida DUNAWAY, Linda Primary Care Provider Hank Corral [phone] REASON FOR VISIT erosive esophagitis Encounters Encounter Location Date Provider Diagnosis [facility] [place] [address] [place] [phone] 11/16/2023 Hank Stanford Other specified di sease of esophagus K22.89 ; Gastritis K29.70 ; Hiatal hernia K44.9 and Erosive esophagitis K22.10 Assessments Encounter Date Diagnosis (ICD Code) Assessment Notes Treatment Notes Treatment Clinical Notes Section Notes 11/16/2023 Other specified disease of esophagus (ICD-10 - K22.89) 11/16/2023 Gastritis (ICD-10 - K29.70) 11/16/2023 Hiatal hernia (ICD-10 - K44.9) 11/16/2023 Erosive esophagitis (ICD-10 - K22.10) Plan Of Treatment No Information Progress Notes * GARHAM MCINTOSH TDOB: [birth year] (49 yo M)Acc No.[id number]:11/16/2023 EGD/MAC Patient:?GRAHAM MCINTOSH Provider:?Hank Stanford MD :1975???Age:48 Y???Sex:Male Iriwn e:11/16/2023 Address:[address] [place], [place] [id number] Pcp:Linda Carrasquillo NP Subjective: * Chief Complaints: * ???1. Erosive esophagitis. * Medical History:? Objective: * Vitals:? Assessment: * Assessment: 1.?Other specified disease o f esophagus - K22.89 (Primary)???2.?Gastritis - K29.70???3.?Hiatal hernia - K44.9???4.?Erosive esophagitis - K22.10??? Plan: * Treatment: * Procedure Codes:?72897 UPPER GI ENDOSCOPY, BIOPSY * * The named appointment provid er may or may not be the originator of this progress note, and it is not deemed complete until electronically signed by the appointment provider. Sign off status: Pending * Provider:?Hank Stanford MD Date:? 024 Generated for Rahel lieberman/Chema/Addiitting on:?12/22/2024 01:47 PM EDT
--- OUTSIDE RECORDS SUMMARY | 2024-12-22 13:47 | XMS_ITS | Patient Health Record ---
Author Organization [facility] Address [address] [place] [address] Care Team Providers Care Economic History Teacher Name Role Phone Neida DUNAWAY, Linda Primary Care Provider Hank Corral [phone] Allergies Allergen (clinical drug ingredient) Drug/Non Drug Allergy documented on EMR Reaction Allergy Type Onset Date Status hydroxyzine Vistaril Unknown Drug Allergy Activ e quetiapine SEROquel Unknown Drug Allergy Active Results Component Value Reference Range Notes Pathology Reviewed date:02/05/2024 03:29:18 PM Interpretation: Performing Lab:[facility], [address] [place] [phone] Notes/Report: Name: Graham Mcintosh Age/Sex: 48/M : 1975 Unit#: [id number] Attend Dr: Rahul Marina MD Re02/02/24 Status : ADM IN Location: [place] [address] Disch: SPEC : [id number] RECD : 02/04/24 STATUS: APRIL FORTE NUM: [id number] TODD: 02/04/24-1345 [facility] DR: Hank Stanford ENTERED: 02/04/24 19 SP TYPE: Surgical OTHR DR: Sergo Castro MD ORDERED: HE Stain/3, Gross Micro L4, IHC, Special st. 2, H. pylori, AB/PAS Diagnosis Stomach, antrum, bio psy: Gastric antral mucosa within normal limits; negative for Helicobacter pylori, intestinal metaplasia and dysplasia. Clinical History Pre-Op Dx: Nausea Post-Op Dx: Erosive esophagitis, gastritis Microscopic Description Microscopic sections reviewed. Material Received Gastric antrum Gross Description Received in formalin labeled ?gastric antrum? are 3 vallejo-pink rectangular tissue fragments each measuring 0.4 c m, submitted in toto in a cassette labeled A. CEDS Special stains order ed and performed: AB/PAS on A; immunostain for Helicobacter pylori on A. Copies To: Sergo Castro MD [address] [place] [id number] [email or web address] Hank Stanford [address] [place] [address] [id number] [place] [id number] Signed (si gnature on file) Candice Chavez MD 02/05/24 1350 END OF REPORT Reason For Referral No Information Medications Medication SIG (Take, Route, Frequency, Duration) Notes [...] clonazePAM Active HumaLOG 100 UNIT/ML Subcutaneous Active Immunizations Vaccine Route Administration Date Status Comme nts Influenza Unknown 06/12/2022 Administered Social History Tobacco Use: Social History Observation Description Date Details (start date - stop date) Current Smoker NA - NA Tobacco Use/Smoking Question Answer Notes Patient is [...] ast year? No Points 0 Interpretation Negative Section Notes: recovering alcoholic--heavy until 2009--reports occ. lapses, but last time was early 2016; substance abuse with previous IVDA-none since 2013; uses medical marijuana from dispensary in [place] for apetitie stimulant, anxiety/depression, and pain relief. Smokes 2 cigs QD Recovering alcoholic--heavy until 2009--reports occ. lapses, but last time was 2014; substance abuse with previous IVDA-none since 2014; uses medical marijuana from dispensary in [place] for apetitie stimulant, anxiety/depression, and pain relief. Smokes 2 cigs QD. Recovering alcoholic--heavy until 2009--reports occ. lapses, but last time was 2014; substance abuse with previous IVDA-none since 2014; uses medical marijuana from dispensary in [place] for apetitie stimulant, anxiety/depression, and pain relief. Smokes 2 cigs QD. Problems Problem Type SNOMED Code ICD Code Onset Dates Problem Status W/U Status Risk Notes Problem 711338105 Colon cancer screening (Z12.11) Active confirmed Problem Diverticular disease of colon (125173793) Diverticulosis of large intestine without perforation or abscess without bleeding (K57.30) Active confirmed Problem 404532141 Elevated liver function tests (R79.89) Active confirmed Problem Chronic gastritis (8155214) Gastritis, chronic (K29.50) Active confirmed Problem 48020260 Erosive esophagitis (K22.10) Active confirmed Problem Gastritis (4261552) Gastritis (K29.70) Active confirmed Problem 467509139 Abnormal CT scan , esophagus (R93.3) Active confirmed Problem 636008825 Idiopathic acute pancreatitis without infection or necrosis (K85.00) Active confirmed Problem Gastroesophageal reflux disease with esophagitis (disorder) (313322304) Gastro-esophageal reflux disease with esophagitis, without bleeding (K21.00) Active confirmed Encounters Encounter Location Date Provider Diagnosis [facility] Out[place] [address] [place] [phone] 02/04/2024 Hank Stanford Plan Of Treatment Pending Test Test Name Order Date LIVER [...] Medicaid [address] [place] [phone] [id number] GRAHAM MCINTOSH Self - patient is the insured MEDICAID OF [facility] [address] [place] [address] [phone] [id number] GRAHAM MCINTOSH Self - patient is the insured Medical (General) History Medical History History ICD Code IDDM--has an Insulin pump Denies IN,CVA,Lung disease,renal disease Anxiety/Depression/PTSD Arthritis Substance and alcohol [...]
--- OUTSIDE RECORDS SUMMARY | 2024-12-22 13:47 | XMS_ITS | Encounter Summary ---
Author Organization [facility] Address [address] [place] [address] Phone Care Team Providers Care Doctor Of Podiatry Name Role Phone Niru Crawford Primary Care Provider [phone] Encounter Details Date Type Department Care Team (Late st Contact Info) Description 09/30/2023 Documentation Only [facility] [address] [place] [phone] Linda Carrasquillo NP Social History Tobacco Use [...] Visit [facility] [address] [place] [phone] Juan Yee MD [address] [place] [address] [place] [phone] documented as of this encounter Visit Diagnoses Not on filedocumented in this encounter Care Teams Doctor Of Podiatry Relationship Specialty Start Date End Date Niru Crawford [address] [place] [address] PCP - General 11/08/24 documented as of this encounter
--- OUTSIDE RECORDS SUMMARY | 2024-12-22 13:48 | XMS_ITS | Clinical Summary ---
Author Organization [facility], Address [address] [place] [address] [place] [address] Phone Care Team Providers Care Business Executive Name Role Phone Niru Crawford Primary Care Provider [phone] Allergies Active Allergy Reactions Criticality Noted Date [...] Visit [facility] [address] [place] [address] Juan Yee MD Proteinuria, not otherwise specified (Primary Dx) 11/04/2024 Telephone [facility] [address] [place] [address] Shalini Hooper [place] 09/27/2024 3:00 PM EST Office Visit [facility] [address] [place] [address] Juan Yee MD Type 1 diabetes mellitus [...] Visit [facility] [address] [place] [phone] Juan Yee MD [address] [place] [address] [place] [address] Health Maintenance Due Date Last [...] 07/20/2024, , 08/09/2022, Additional history exists Insurance [facility] Care Teams Business Executive Relationship Specialty Start Date End Date Niru Crawford [address] [place] [address] PCP - General 11/08/24
--- OUTSIDE RECORDS SUMMARY | 2024-12-22 13:48 | XMS_ITS ---
Author Organization [facility] Address [address] [place] [address] Care Team Providers Care Train System Operator Name Role Phone Neida DUNAWAY, Linda Primary Care Provider Hank Corral [phone] Allergies Allergen (clinical drug ingredient) Drug/Non Drug Allergy documented on EMR Reaction Allergy Type Onset Date Status hydroxyzine Vistaril Unknown Drug Allergy Activ e quetiapine SEROquel Unknown Drug Allergy Active REASON FOR VISIT Patient presents today for erosive esophagitis Medications Medication SIG (Take, Route, Frequency, Duration) [...] clonazePAM Active HumaLOG 100 UNIT/ML Subcutaneous Active Social History Tobacco Use: Social History Observation [...] No Points 0 Interpretation Negative Section Notes: Recovering alcoholic--heavy until 2009--reports occ. lapses, but last time was 2014; substance abuse with previous IVDA-none since 2014; uses medical marijuana from dispensary in [place] for apetitie stimulant, anxiety/depression, and pain relief. Smokes 2 cigs QD. Problems Problem Type SNOMED Code ICD Code Onset Dates Problem Status W/U Status Risk Notes Problem 67655816 Erosive esophagitis (K22.10) Active confirmed Vital Signs Temperature 96.4 degrees Fahrenheit 08/27/20 23 Blood pressure systolic 00 mm Hg 08/27/20 23 Blood pressure diastolic 00 mm Hg 023 Height 71 in 08/27/2023 Weight 155 lbs 08/27/2023 BMI 21.62 kg/m2 08/27/2023 Encounters Encounter Location Date Provider Diagnosis [facility] [address] [place] [address] 08/27/2023 Hank Stanford Erosive esophagitis K22.10 Assessments Encounter Date Diagnosis (ICD Code) Assessment Notes Treatment Notes Treatment Clinical Notes Section Notes 08/27/2023 Erosive esophagitis (ICD-10 - K22.10) Overall, Graham appears well. He seems to have had a good symptomatic improvement on the daily omeprazole. Based on the endoscopic findings I advised him to continue that on a long-term basis. I have recommended a followup endoscopy to reassess the esophagus so as to be sure it has healed and there is no underlying Grigsby's esophagus that needs to be biopsied given his risk factors of previous alcohol abuse and smoking. Full consent is obtained for the upper endoscopy, including risks of bleeding and perforation. I did review the colonoscopy results with him and recommended a followup colonoscopy in10 years for further screening. I suspect his continued elevated LFTs are related to fatty liver in relation to his previous alcohol abuse. I shall check his records to be sure he does not need a liver workup such as checking viral serologies, iron studies, and autoimmune studies. Graham was comfortable with this plan. Thank you again for allowing me to participate in Graham's care. I shall continue to keep you advised of his progress. 08/27/2023 Other Repeat colonoscopy in 03/2033 Overall, Graham appears well. He seems to have had a good symptomatic improvement on the daily omeprazole. Based on the endoscopic findings I advised him to continue that on a long-term basis. I have recommended a followup endoscopy to reassess the esophagus so as to be sure it has healed and there is no underlying Grigsby's esophagus that needs to be biopsied given his risk factors of previous alcohol abuse and smoking. Full consent is obtained for the upper endoscopy, including risks of bleeding and perforation. I did review the colonoscopy results with him and recommended a followup colonoscopy in10 years for further screening. I suspect his continued elevated LFTs are related to fatty liver in relation to his previous alcohol abuse. I shall check his records to be sure he does not need a liver workup such as checking viral serologies, iron studies, and autoimmune studies. Graham was comfortable with this plan. Thank you again for allowing me to participate in Graham's care. I shall continue to keep you advised of his progress. Plan Of Treatment Medication Medication Name Sig Start Date Stop Date Notes Omeprazole 40 MG Oral Treatment Notes Assessment Notes Other Repeat colonoscopy i n 03/2033 Future Test Test Name Order Date UPPER GI ENDOSCOPY 08/27/2023 Next Appt Details Follow Up: prn, Reason: Progress Notes * GRAHAM MCINTOSH TDOB: [birth year] (47 yo M)Acc No.[id number]:08/27/2023 Progress Notes Patient:?GRAHAM MCINTOSH T Provider:?Hank Stanford MD :1975???Age:47 Y???Sex:Male Irwin e:08/27/2023 Address:[address] [place], [place] [phone] Pcp:Linda Carrasquillo NP Subjective: * Chief Complaints: * ???Patient presents today fo r erosive esophagitis * HPI: ???incontinence:? I saw Graham in followup today in regard to this underlying history of erosive esophagitis and discussion of colorectal cancer screening. ?I last saw Graham in March, at which time he underwent an upper endoscopy and colonoscopy. His colonoscopy revealed only hyperplastic polyps which were removed. The endoscopy revealed significant erosive esophagitis. All the biopsies were negative for Grigsby's esophagus. He was started on omeprazole 40 mg at that time with good relief of his heartburn symptoms. He currently feels well and has continued on his daily omeprazole. He denies any significant heartburn, dysphagia, anorexia, or early satiety. His bowel movements are regular and without any signs of bleeding. He denies abdominal pain. ?He continues to remain abstinent from alcohol. He still smokes a couple of cigarettes a day, as well as marijuana. * ROS:?General/Constitutional:?Change in appetite?denies.?Chills?denies.?Fatigue?denies.?Ophthalmologic:?Comments?all negative.?ENT:?Comments?all negative.?Respiratory:?hemoptysis?denies.?Cough?denies.?Cardiovascular:?Chest pain?denies.?Orthopnea?denies.?Gastrointestinal:?Comments?See HPI for details.?Genitourinary:?Hematuria?denies.?Dysuria?denies.?Musculoskeletal:?Painful joints?denies.?Weakness?denies.?Skin:?Itching?denies.?Rash?denies.?Neurologic:?Headache?denies.?Seizures?denies.?Psychiatric:?Comments?all negative.? * Medical History:? * Surgical History:?Hernia rep air as an infant * Hospitalization/Major Diagno stic Procedure:?No Hospitalization History. * Family History:?Father: unkn own.?Mother: unknown.? pt was adopted. * Social History:?Tobacco Use:?Tobacco Use/Smoking?Patient is a?current smoker,?How often do you smoke cigarettes??every day,?How many cigarettes a day do you smoke??5 or less,?How soon after you wake up do you smoke your first cigarette??31-60 minutes,?Are you interested in quitting??Ready to quit.?Drugs/Alcohol:?Alcohol Screen?Did you have a drink containing alcohol in the past year??No,?Points?0,?Interpretation?Negative.?Miscellaneous:?Marital status: . Occupation: [employer]. ???Recovering alcoholic--heavy until 2009--reports occ. lapses, but last time was 2014; substance abuse with previous IVDA-none since 2014; uses medical marijuana from dispensary in [place] for apetitie stimulant, anxiety/depression, and pain relief. Smokes 2 cigs QD. * Medications:?TakingHumaLOG 1 00 UNIT/ML Solution Subcutaneous clonazePAM cloNIDine HCl Advair Diskus 250-50 MCG/ACT Aerosol Powder Breath Activated INHALE 1 PUFF INTO THE LUNGS TWICE DAILY Diagnosis Unavailable Inhalation Lisinopril 5 MG Tablet Oral Insulin Lispro 100 UNIT/ML Solution Injection Omeprazole 40 MG Capsule Delayed Release Oral Taking HumaLOG 100 UNIT/ML Solution Subcutaneous Taking clonazePAM Taking cloNIDine HCl Taking Advair Diskus 250-50 MCG/ACT Aerosol Powder Breath Activated INHALE 1 PUFF INTO THE LUNGS TWICE DAILY Diagnosis Unavailable Inhalation Taking Lisinopril 5 MG Tablet Oral Taking Insulin Lispro 100 UNIT/ML Solution Injection Taking Omeprazole 40 MG Capsule Delayed Release Oral Not- Taking/PRNTresiba FlexTouch 100 UNIT/ML Solution Pen-injector Subcutaneous Not-Taking/PRN Tresiba FlexTouch 100 UNIT/ML Solution Pen-injector Subcutaneous DiscontinuedFluticasone Propionate 50 MCG/ACT Suspension SHAKE LIQUID AND USE 1 SPRAY IN EACH NOSTRIL DAILY Nasal Medication List reviewed and reconciled with the patientDiscontinued Fluticasone Propionate 50 MCG/ACT Suspension SHAKE LIQUID AND USE 1 SPRAY IN EACH NOSTRIL DAILY Nasal Medication List reviewed and reconciled with the patient * Allergies:?Jazmyne goldstein[Allergies Verified] Objective: * Vitals:?Wt: 155 lbs, Ht: 71 in, BMI:21.62 Index, BP: 00/00 mm Hg, Temp:96.4. * Examination: ???General Examination: ?GENERAL APPEARANCE:?pleasant, well nourished, well developed, in no acute distress.?EYES:?sclera non-icteric.?ORAL CAVITY:?mucosa moist.?NECK/THYROID:?no cervical lymphadenopathy, neck supple.?SKIN:?nonjaundiced, no spider angiomata.?HEART:?S1, S2 normal.?LUNGS:?clear to auscultation bilaterally.?ABDOMEN:?normal bowel sounds, no guarding or rigidity, no guarding or rigidity, no masses palpable, soft, nontender, nondistended.?EXTREMITIES:?no edema.?NEUROLOGIC:?alert and oriented.? Assessment: * Assessment: 1.?Erosive esophagitis - K22 .10 (Primary)? Overall, Graham appears well. He seems to have had a good symptomatic improvement on the daily omeprazole. Based on the endoscopic findings I advised him to continue that on a long-term basis. I have recommended a followup endoscopy to reassess the esophagus so as to be sure it has healed and there is no underlying Grigsby's esophagus that needs to be biopsied given his risk factors of previous alcohol abuse and smoking. Full consent is obtained for the upper endoscopy, including risks of bleeding and perforation. I did review the colonoscopy results with him and recommended a followup colonoscopy in10 years for further screening. I suspect his continued elevated LFTs are related to fatty liver in relation to his previous alcohol abuse. I shall check his records to be sure he does not need a liver workup such as checking viral serologies, iron studies, and autoimmune studies. Graham was comfortable with this plan. Thank you again for allowing me to participate in Graham's care. I shall continue to keep you advised of his progress. Plan: * Treatment: 2.?Others? Continue Omeprazole Capsule Delayed Release, 40 MG, Oral.?? Notes: Repeat colonoscopy in 03/2033.?? * Procedure Codes:?3017F COLOR ECTAL CA SCREEN DOC [id number] BP SCR NOT PRFRM REC REASON [id number] Pt scrn tbco and id as user * Follow Up:?prn * * Sign off status: Completed true * Provider:?Hank Stanford MD Date:? 023 Generated for Rahel lieberman/Chema/eTransmitting on:?12/22/2024 01:47 PM EDT History and Physical Notes * HPI (History of Present Illness) Category Sub-Category Detail Notes Category Not es incontinence I saw Graham in followup today in regard to this underlying history of erosive esophagitis and discussion of colorectal cancer screening. I last saw Graham in March, at which time he underwent an upper endoscopy and colonoscopy. His colonoscopy revealed only hyperplastic polyps which were removed. The endoscopy revealed significant erosive esophagitis. All the biopsies were negative for Grigsby's esophagus. He was started on omeprazole 40 mg at that time with good relief of his heartburn symptoms. He currently feels well and has continued on his daily omeprazole. He denies any significant heartburn, dysphagia, anorexia, or early satiety. His bowel movements are regular and without any signs of bleeding. He denies abdominal pain. He continues to remain abstinent from alcohol. He still smokes a couple of cigarettes a day, as well as marijuana. Examination Category Sub-Category Detail Notes Category Not es General Examination GENERAL APPEARANCE: pleasant , well [...]
--- OUTSIDE RECORDS SUMMARY | 2024-12-22 13:48 | XMS_ITS ---
Author Organization [facility] Address [address] [place] [address] Care Team Providers Care City Tax Auditor Name Role Phone Neida DUNAWAY, Linda Primary Care Provider Hank Corral [phone] Problems Problem Type SNOMED Code ICD Code Onset Dates Problem Status W/U Status Risk Notes Problem Chronic gastritis (7389915) Gastritis, chronic (K29.50) Active confirmed Encounters Encounter Location Date Provider Diagnosis [facility] [place] [address] [place] [phone] 02/04/2024 Hank Stanford Plan Of Treatment No Information Progress Notes * GRAHAM MCINTOSH TDOB: 5 (49 yo M)Acc No.[id number]:02/04/2024 EGD/MAC Patient:?GRAHAM MCINTOSH Provider:?Hank Stanford MD :1975???Age:48 Y???Sex:Male Irwin e:02/04/2024 Address:[address] [place], [place] [phone] Pcp:Linda Carrasquillo NP Subjective: * Chief Complaints: * ??? * Medical History:? Objective: * Vitals:? Assessment: Plan: * Treatment: * * The named appointment provid er may or may not be the originator of this progress note, and it is not deemed complete until electronically signed by the appointment provider. Sign off status: Pending * Provider:?Hank Stanford MD Date:? 024 Generated for Dailyi mio/Faxing/eTransmitting on:?12/22/2024 01:47 PM EDT
== END 2024-12-22 10:50 | disposition home or self-care (01) ==
LOC: HO.US 10:49
PROVIDERS: Visit Provider Nurse Practitioner Adult Health
DX: I73.9 Peripheral vascular disease, unspecified (principal)
CPT/HCPCS: 93923

== ENCOUNTER → 2024-12-22 10:51 | Outpatient (BNV) | payer MEDICAID, SELFPAY | PROVIDERS: Visit Provider Radiology Diagnostic Radiology | DX: I73.9 Peripheral vascular disease, unspecified (principal) | CPT/HCPCS: 93923 ==

== ENCOUNTER 2024-12-29 08:22 | Inpatient (IN) | payer MEDICAID, SELFPAY ==
[2024-12-29] VITALS (17 sets, daily range): BP systolic 138–172; BP diastolic 64–90; PULSE 80–110; RESP 12–20; TEMP 36.6–37.2; O2SAT 67–100
--- NOTE | ~2024-12-29 | US_ITS ---
EXAMINATION: US ABDOMEN LIMITED HISTORY: RUQ abdominal pain TECHNIQUE: Real-time grayscale ultrasound imaging of the right upper quadrant was performed and images were reviewed. COMPARISON: Comparison is made with the prior examination dated 10/13/2017. FINDINGS: Liver: The right lobe of the liver measures 18.7 cm in size. The left lobe of the liver measures 7.8 cm in size. The liver demonstrates a nodular contour consistent with cirrhosis. There is increased hepatic echotexture consistent with steatosis. No focal mass or intrahepatic biliary ductal dilatation is identified. There is normal hepatopedal flow in the portal vein. Gallbladder and biliary tree: The gallbladder is unremarkable, without evidence of calculi, wall thickening, or pericholecystic fluid. There is no sonographic Allen sign. The common bile duct is normal in caliber measuring 4 mm. There is no free fluid in the right upper quadrant. US/US abdomen limited IMPRESSION: Hepatic steatosis and cirrhosis. No evidence of cholelithiasis. Electronically signed by: Hank Howe MD 12/29/2024 11:05 AM EDT
--- NOTE | ~2024-12-29 | CT_ITS ---
EXAMINATION: CT ABDOMEN PELVIS WITHOUT IV CONTRAST HISTORY: left flank pain COMPARISON: Comparison is made with the prior examination dated 10/21/2024. TECHNIQUE: CT scan of the abdomen and pelvis was performed without contrast using standard departmental protocol. Coronal and sagittal reformatted images were generated and reviewed. Oral contrast material was not administered per department protocol. This CT exam was performed with one or more of the following dose reduction techniques: automated exposure control, adjustment of the mA and/or kV according to patient size, use of iterative reconstruction technique. DLP: 391 mGy-cm FINDINGS: LOWER CHEST: The visualized lung bases are clear. There is no pleural effusion. There is diffuse wall thickening of the distal esophagus with an adjacent 11 mm paraesophageal lymph node. These findings were not present on the prior study. CARDIOVASCULATURE: The heart is normal in size. There is no pericardial effusion. LIVER: There is atrophy of the left lobe of the liver. The liver has an otherwise unremarkable unenhanced appearance. GALLBLADDER / BILE DUCTS: The gallbladder is unremarkable. There is no intra or extrahepatic biliary ductal dilatation. SPLEEN: The spleen is normal in size and has an unremarkable unenhanced appearance. PANCREAS: The pancreas has an unremarkable unenhanced appearance. ADRENAL GLANDS: Unremarkable. KIDNEYS/RETROPERITONEUM: There is a punctate nonobstructing calculus at the upper pole of the left kidney. No right renal calculi are identified. There is no hydronephrosis or hydroureter. No ureteral calculi are seen. LYMPH NODES: No retroperitoneal lymphadenopathy is identified in the abdomen or pelvis. VASCULATURE: The abdominal aorta demonstrates atherosclerotic calcification, but is normal in caliber. MESENTERY/PERITONEUM: No free fluid. No masses. There is no free intraperitoneal gas. STOMACH: The stomach is collapsed, limiting evaluation. SMALL BOWEL: The small bowel is normal in caliber. COLON: There is diverticulosis of the sigmoid colon, without evidence of diverticulitis. APPENDIX: Normal. URINARY BLADDER/PELVIC ORGANS: The urinary bladder is collapsed, limiting evaluation. The prostate is normal in size. BONES / SOFT TISSUES: There is bilateral spondylolysis of L5 without spondylolisthesis. CT/CT abdomen pelvis wo IV con IMPRESSION: 1. Punctate nonobstructing calculus at the upper pole of the left kidney. No evidence of ureteral calculi or obstruction. 2. Wall thickening of the distal esophagus with an adjacent 11 mm paraesophageal lymph node. Further evaluation with upper endoscopy is recommended. 3. Diverticulosis of the sigmoid colon, without evidence of diverticulitis. Electronically signed by: Hank Howe MD 12/29/2024 10:52 AM EDT
--- NOTE | ~2024-12-29 | XR_ITS ---
CLINICAL HISTORY: Hypoxia 1 view chest x-ray Comparison: Chest x-ray from 08/29/2020 Findings: Mild right basilar pulmonary opacities are nonspecific and may reflect mild pneumonitis. Mild emphysematous changes noted. No lobar consolidation. No pneumothorax or pleural effusion. Imaged mediastinum is unchanged. Degenerative changes include imaged left shoulder. IMPRESSION: Mild right basilar pulmonary opacities may reflect mild pneumonitis. Recommend attention on follow-up to ensure resolution. This document has been electronically signed by: Fletcher Glez MD on 12/29/2024 21:06:16
[2024-12-29 08:56] LABS: Basophils Percent Auto 0.2 % (0-2); Hematocrit 42.2 % (42.0-52.0); Hemoglobin 15.6 g/dl (14.0-18.0); Imm Gran Abs Auto 0.11 X10*3/uL (0.00-0.03); Imm Gran Pct Auto 0.6 % (0.0-0.4); Lymphocytes Absolute Auto 1.8 X10*3/uL (1.2-4.9); Lymphocytes Percent Auto 9.4 % (20-40); MANUAL DIFF FLAG SCAN; Mean Corpuscular Hemoglobin 36.2 pg (27.0-33.0); Mean Corpuscular Volume 97.9 fL (80.0-98.0); Mean Platelet Volume 9.5 fL (9.4-12.4); Monocytes Absolute Auto 1.6 X10*3/uL (0.1-1.2); Monocytes Percent Auto 8.4 % (2-11); Neutrophils Absolute Auto 15.9 x10*3/uL (2.0-8.3); Neutrophils Percent Auto 81.4 % (45-73); Platelet Count 201 X10*3/uL (160-400); Red Blood Count 4.31 X10*6/uL (4.60-5.80); Red Cell Distribution Width 12.5 % (11.0-16.0); SCAN SMEAR FLAG 1; White Blood Count 19.5 X10*3/uL (4.8-10.8)
[2024-12-29 08:57] LABS: Appearance Urine Clear; Color Urine Yellow; Glucose Urine UA Negative (Negative); Leukocyte Esterase Urine Trace (Negative); Nitrite Urine Negative (Negative); PH >= 9.0 (5.0-9.0); Specific Gravity - Urine 1.015 (1.005-1.025); UMIC TRIGGER UACC YES; Urine Blood Small (1+) (Negative); Urine Ketones Trace mg/dL (Negative); Urine Protein 100 (2+) mg/dL (Neg-Trace)
[2024-12-29 09:02] LABS: Bacteria Urine None Seen (None Seen); RBC Urine >20 /HPF (0-2); WBC Urine 0-5 /HPF (0-5)
[2024-12-29 09:14] LABS: Alanine Aminotransferase 54 U/L (0-40); Albumin Level 3.8 g/dL (3.5-5.0); Alkaline Phosphatase 175 U/L (39-117); Aspartate Amino Transferase 85 U/L (5-37); Bilirubin Direct 0.6 mg/dL (0.0-0.5); Bilirubin Total 1.5 mg/dL (0.0-1.0); Blood Urea Nitrogen 22 mg/dL (9-16); Calcium 8.6 mg/dL (8.4-10.2); Creatinine Clr Calc Pharmacy 36.5; Estimated Glomerular Filt Rate 31; Glucose Random 135 mg/dL (60-115); Lipase 5 U/L (8-78)
--- NOTE | 2024-12-29 09:17 | ED_ITS ---
HPI - General Adult General Chief complaint: Nausea/Vomiting/Diarrhea Stated complaint: vomiting sob back and abd pain Time Seen by Provider: 12/29/24 09:17 Source: patient and family (patient's mother) Mode of arrival: ambulatory Limitations: no limitations History of Present Illness ED Provider: Keli Chavez PA-C HPI narrative: Patient is a 49 year old assigned male at with a history of PVD, HTN, tobacco use, marijuana use, cocaine use, depression, pancreatitis, GERD, and type 1 DM, presenting to the emergency department today with nausea, vomiting, and shortness of breath with activity. Patient states that over the last 2 days he has had nausea, vomiting, left flank pain, right upper quadrant abdominal pain, and intermittent shortness of breath with ambulation. Patient denies any dizziness, lightheadedness, fever, chills, blurry vision, double vision, loss of vision, chest pain, night sweats, pain with urination, increased urinary frequency, increased urinary urgency, blood in his urine or stool, syncope or a near syncopal episode, recent trauma or falls, bowel incontinence, bladder incontinence, or any other complaints at this time. Onset (ago): day(s) (2) Location: back and abdomen Relieving factors: none Exacerbating factors: none Associated symptoms: nausea/vomiting Treatments prior to arrival: none Related Data Home Medications ?Medication ?Instructions ?Recorded ?Confirmed clonazepam 0.5 mg tablet 0.5 mg PO DAILY PRN Anxiety 07/16/21 12/29/24 insulin lispro 100 unit/mL See Rx Instructions continuous 11/01/24 12/29/24 subcutaneous solution (Humalog subcutaneous infusion .continous U-100 Insulin) albuterol sulfate 90 mcg/actuation 2 puff inhalation Q4H PRN 12/29/24 12/29/24 aerosol inhaler (Ventolin HFA) Respiratory Distress fluticasone 250 mcg-salmeterol 50 1 inh inhalation BID 12/29/24 12/29/24 mcg/dose blistr powdr for inhalation (Advair Diskus) subcutaneous insulin pump (Tandem 12/29/24 12/29/24 Mobi System) Previous Rx's ?Medication ?Instructions ?Recorded insulin syringe-needle U-100 0.3 #150 ea 08/29/20 mL 29 gauge x 1/2 (BD Insulin Syringe) pen needle, diabetic 32 gauge x #50 ea 08/29/20 (BD Felisha 2nd Gen Pen Needle) 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 meter (FreeStyle #1 ea 10/22/22 Lite Meter kit) blood sugar diagnostic (FreeStyle #300 ea 02/19/23 Lite Strips) lancets 28 gauge (FreeStyle #100 ea 02/19/23 Lancets) omeprazole 40 mg capsule,delayed 40 mg PO BID@0630,1630 #180 caps 02/06/24 release acetone (urine) test (Ketone Urine #25 ea 11/02/24 Test strips) glucagon 3 mg/actuation nasal 3 mg intranasal ONCE PRN severe 11/30/24 spray (Baqsimi) hypoglycemia may repeat in 15 mintues 30 days #2 ea Allergies Allergy/AdvReac Type Severity Reaction Status Date / Time hydroxyzine [From VISTARIL] Allergy Intermediate RASH, Verified 12/29/24 08:37 ANXIOUS quetiapine [Seroquel] AdvReac Intermediate Unknown Verified 12/29/24 08:37 Review of Systems 2 Constitutional: Constitutional: Reports no additional constitutional complaints, Denies chills, Denies fever(s) and Denies night sweats Eyes: Eyes: Reports no additional eye complaints, Denies blurry vision, Denies change in vision, Denies diplopia, Denies eye discharge, Denies loss of vision and Denies eye pain ENT: Denies dizziness Cardiovascular: Cardiovascular: Reports no additional cardiovascular complaints, Denies chest pain, Denies lightheadedness, Denies Loss of Consciousness and Reports dyspnea (intermittently ) Respiratory: Respiratory: Reports no additional respiratory complaints and Reports dyspnea (intermittently ) Gastrointestinal: Gastrointestinal: Reports no additional gastrointestinal complaints, Reports abdominal pain, Denies melena, Denies hematochezia, Denies change in bowel habits, Denies change in stool character, Reports nausea and Reports vomiting Genitourinary: Genitourinary: Reports no additional male genitourinary complaints, Denies hematuria, Denies oliguria, Denies difficulty urinating, Denies dysuria, Reports flank pain, Denies urinary frequency, Denies urinary hesitancy, Denies urinary incontinence and Denies urinary urgency Musculoskeletal: Musculoskeletal: Reports no additional musculoskeletal complaints, Reports back pain, Denies numbness and Denies tingling Neurologic: Denies dizziness, Denies loss of vision, Denies numbness and Denies tingling Psychiatric: Psychiatric: Reports no additional psychiatric complaints Endocrine: Endocrine: Reports no additional endocrine complaints Hematologic/Lymphatic: Hematologic/Lymphatic: Reports no additional hematologic/lymphatic complaints Allergic/Immunologic: Allergic/Immunologic: Reports no additional allergic/immunologic complaints [facility] Past Medical History Attestation statement: The following information was validated with the patient. 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 Mother No problems noted. Social History Social History Household Members: Family Household Members Other:: mother Housing: House Do you presently have visiting nurse or other home services: No Alcohol intake: former Patient Tobacco Use Status: Current everyday Tobacco user Tobacco use type: Cigarette Cigarettes Per Day: 3 Smoked in Last 30 Days: Yes e-Cigarette/Vaping Use: Currently Using Use of substances other than those prescribed or required for medical reasons: No Substance Use Type: Marijuana Advance Directives: Yes Advance Directives on File: Yes Advance Directives Date on File: 08/29/20 service: No Current occupational status: unemployed Physical Exam ED Vital Signs: Vital Signs - 24 hr 12/29/24 08:32 12/29/24 09:28 12/29/24 09:50 Temperature 98.2 F Pulse Rate 107 H 110 H Respiratory Rate 16 20 12 Blood Pressure 144/69 H 138/64 Pulse Oximetry 99 100 Oxygen Delivery Method Room Air Room Air 12/29/24 10:15 12/29/24 10:48 12/29/24 12:09 Temperature 98.6 F Pulse Rate 88 91 Respiratory Rate 18 20 12 Blood Pressure 149/74 H 149/74 H Pulse Oximetry 97 97 Oxygen Delivery Method Room Air Room Air BMI result Body Mass Index 20.0 Const General: cooperative, no acute distress, alert and awake Nutritional Appearance: well nourished Orientation/consciousness: patient oriented x3 Limitations: no limitations HENMT Head: Yes normal to inspection and Yes atraumatic Ears: hearing grossly normal bilaterally and external ears normal General nose exam: Normal external nose present, no nasal discharge noted and no epistaxis Face and sinus: Yes normal facial exam, No abrasion and No laceration Mouth: Normal oral and palatal mucosa present, no drooling and no muffled voice Eyes General: appearance normal, both eyes and all related structures Periorbital: periorbital findings normal Eyelids: Yes eyelids normal Conjunctivae: conjunctivae normal Pupils: Equal, round and reactive pupils present EOM: EOMs intact bilaterally Neck Neck: Yes normal visual inspection, Yes full ROM and Yes no lymphadenopathy Chest Chest palpation & inspection: normal inspection of the chest Resp Effort & Inspection: normal respiratory effort and able to speak in complete sentences GI Inspection: Yes normal to inspection Neuro General: patient oriented x3, moves all extremities and CN's II-XI intact bilaterally Cranial nerves: Yes Equal, round and reactive pupils present Cognition (Neuro): normal cognition Extrem General: Yes normal to inspection, Yes full ROM and Yes capillary refill normal Psych Appearance: grossly normal Mental Status: mental status grossly normal Affect: normal affect Attitude: cooperative Thought process: Normal thought process present Thought content: Normal thought content present Insight: Good insight present (Psych) Medications Administered Generic Name Dose Route Start Last Admin Trade Name Freq PRN Reason Stop Dose Admin Fluticasone/Vilanterol 1 puff 12/29/24 12:45 12/29/24 13:20 Fluticasone/Vilanterol 100/25 Blst.W.Dev INHALE Not Given RDAILJanuary [facility] Hydromorphone HCl 1 mg 12/29/24 12:28 12/29/24 13:28 Hydromorphone Hcl 0.5 Mg/0.5 Ml Syringe IVPUSH 1 mg Q3H PRN Administration Pain, Severe (Pain Scale 7-10) Protocol Pantoprazole Sodium 40 mg 12/29/24 16:30 12/29/24 14:17 Pantoprazole Sodium 40 Mg/10 Ml Vial IVPUSH Not Given BID@0630,1630 [facility] Discontinued Medications Generic Name Dose Route Start Last Admin Trade Name Freq PRN Reason Stop Dose Admin Hydromorphone HCl 1 mg 12/29/24 09:55 12/29/24 10:15 Hydromorphone Hcl 1 Mg/Ml Syringe IVPUSH 12/29/24 09:56 1 mg ONCE ONE Administration Protocol Lactated Ringer's 1,000 mls @ 999 mls/hr 12/29/24 09:30 12/29/24 11:17 Lr IV 12/29/24 10:30 Infused .Q1H1M ASHLEIGH Infusion Magnesium Sulfate 2 gm in 50 mls @ 25 mls/hr 12/29/24 09:27 12/29/24 11:54 Magnesium Sulfate/H2o IV 12/29/24 11:26 Infused ONCE ONE Infusion Potassium Chloride 10 meq in 100 mls @ 100 mls/hr 12/29/24 09:30 12/29/24 11:54 Potassium Chloride/H20 IV 12/29/24 11:29 Infused Q1H ASHLEIGH Infusion Lactated Ringer's 1,000 mls @ 999 mls/hr 12/29/24 10:00 12/29/24 11:25 Lr IV 12/29/24 11:00 Infused .Q1H1M ASHLEIGH Infusion Sodium Chloride 1,000 mls @ 999 mls/hr 12/29/24 12:00 12/29/24 14:22 Ns IV 12/29/24 13:00 Infused .Q1H1M ASHLEIGH Infusion Potassium Chloride 10 meq in 100 mls @ 100 mls/hr 12/29/24 12:00 12/29/24 14:23 Potassium Chloride/H20 IV 12/29/24 13:59 Infused Q1H ASHLEIGH Infusion Morphine Sulfate 4 mg 12/29/24 09:18 12/29/24 09:50 Morphine Sulfate 4 Mg/Ml Cartridge IVPUSH 12/29/24 09:19 4 mg ONCE ONE Administration Protocol Ondansetron HCl 4 mg 12/29/24 09:18 12/29/24 09:50 Ondansetron Hcl 4 Mg/2 Ml Vial IVPUSH 12/29/24 09:19 4 mg ONCE ONE Administration Pantoprazole Sodium 40 mg 12/29/24 10:04 12/29/24 10:48 Pantoprazole Sodium 40 Mg/10 Ml Vial IVPUSH 12/29/24 10:05 40 mg ONCE ONE Administration Potassium Chloride 20 meq 12/29/24 09:54 12/29/24 10:15 Potassium Chloride Er 20 Meq Tab.Er.Prt PO 12/29/24 09:55 20 meq ONCE ONE Administration Medical Decision Making Medical Decision Making [facility] Narrative: Patient is a 49 year old assigned male at with a history of PVD, HTN, tobacco use, marijuana use, cocaine use, depression, pancreatitis, GERD, and type 1 DM, presenting to the emergency department today with nausea, vomiting, and shortness of breath with activity. Patient's physical exam was as noted in the physical exam portion of this note. Patient's blood work showed WBC 19.5, lactic 2.3 with repeat 0.9, K+ 2.8, Chloride 77, CO2 48, CR 2.23, BUN 22, mag 1.4, T bili 1.5, direct bili 0.6, AST 85, ALT 54, Alk phos 175, initial trop 17.9 with a repeat of 15.8. Patient's urine showed no acute process. Patient's EKG showed significant QT prolongation but otherwise unremarkable. Patient's RUQ US showed no acute process. Patient's CT abd/pelvis showed wall thickening of the distal esophagus with an adjacent 11 mm paraesophageal lymph node for which the radiologist suggested an endoscopy. Patient was given IV magnesium, IV potassium, IV protonix, IV dilaudid, IV morphine, and 2 liters of LR. I spoke to Dr. Stanford, the patient's GI specialist who agreed with consult. I spoke to the hospitalist team who agreed to admission. Patient's clinical presentation is most consistent with JACK and electrolyte abnormality secondary to continued vomiting. Patient's clinical presentation is not consistent with sepsis (@1124). I explained my physical exam findings as well as all test results to the patient and the patient's mother. I answered all questions asked by the patient and the patient's mother. Patient and the patient's mother verbalized agreement and understanding with this treatment plan and admission. Differential Diagnosis Differential Diagnoses: The differential diagnosis associated with the presentation includes Nausea Vomiting Hypokalemia Hypomagnesemia Acute kidney injury Admission/Observation Consideration of admission/observation: Escalation of care including admission/observation considered Patient admitted as noted in the MDM Rationale portion of this note. Consult Healthcare Provider Management of the patient was discussed with: Hospitalist (agreed to admission as noted in the MDM Rationale portion of this note. ) and Eyeglass Inspector (Spoke to the GI team as noted in the MDM Rationale portion of this note. ) Lab Data [facility] Lab Attestation statement: I reviewed the patient's lab results. My interpretation of these results are in the MDM Rationale portion of this note. 12/29/24 08:47 12/29/24 08:47 Labs: Lab Results 12/29/24 12/29/24 12/29/24 Range/Units 08:47 08:49 09:37 WBC 19.5 H (4.8-10.8) X10*3/uL RBC 4.31 L (4.60-5.80) X10*6/uL Hgb 15.6 (14.0-18.0) g/dl Hct 42.2 (42.0-52.0) % MCV 97.9 (80.0-98.0) fL MCH 36.2 H (27.0-33.0) pg MCHC 37.0 H (31.0-36.0) g/dl RDW 12.5 (11.0-16.0) % Plt Count 201 D (160-400) X10*3/uL MPV 9.5 (9.4-12.4) fL Immature Gran % (Auto) 0.6 H (0.0-0.4) % Neut % (Auto) 81.4 H (45-73) % Lymph % (Auto) 9.4 L (20-40) % Independence % (Auto) 8.4 (2-11) % Eos % (Auto) 0.0 (0-4) % Baso % (Auto) 0.2 (0-2) % Lymph # (Auto) 1.8 (1.2-4.9) X10*3/uL Independence # (Auto) 1.6 H (0.1-1.2) X10*3/uL Eos # (Auto) 0.0 (0.0-0.4) X10*3/uL Baso # (Auto) 0.0 (0.0-0.2) X10*3/uL Abs Immat Gran (auto) 0.11 H (0.00-0.03) X10*3/uL Absolute Neuts (auto) 15.9 H (2.0-8.3) x10*3/uL Absolute Nucleated RBC 0.000 (0.0-0.012) X10*3/uL Nucleated RBC % (auto) 0.0 (0.0-0.2) /100WBC Smear Tech's Comments VERIFIED ESR 2 (0-15) MM/HR VBG pH (7.32-7.43) VBG pCO2 mmHg VBG pO2 mmHg VBG HCO3 (22-26) mmol/L VBG O2 Saturation % VBG Base Excess mmol/L Sodium 140 (135-145) mmol/L Potassium 2.8 L* D (3.3-5.1) mmol/L Chloride 77 L D (96-108) mmol/L Carbon Dioxide 48 H* D (22-29) mmol/L Anion Gap 18 (12-20) BUN 22 H (9-16) mg/dL Creatinine 2.23 H (0.5-1.4) mg/dL Estim Creat Clear Calc 36.5 Estimated GFR 31 Random Glucose 135 H (60-115) mg/dL Lactic Acid 2.3 H* (0.5-2.0) mmol/L Lactic Acid F/U @ 2Hr (0.5-2.0) mmol/L Calcium 8.6 (8.4-10.2) mg/dL Magnesium 1.4 L* (1.6-2.6) mg/dL Total Bilirubin 1.5 H (0.0-1.0) mg/dL Direct Bilirubin 0.6 H (0.0-0.5) mg/dL AST 85 H (5-37) U/L ALT 54 H (0-40) U/L Alkaline Phosphatase 175 H (39-117) U/L Total Creatine Kinase 91 (38-174) U/L Troponin I High Sens 17.9 D (<3.5-35.0) ng/L C-Reactive Protein 0.62 H (< or = 0.50) mg/dL B-Natriuretic Peptide 125 H (<100) pg/mL Total Protein 7.0 (6.5-8.0) g/dL Albumin 3.8 (3.5-5.0) g/dL Lipase 5 L (8-78) U/L Beta-Hydroxybutyrate 0.26 (0.02-0.27) mmol/L Urine Color Yellow Urine Appearance Clear Urine pH >= 9.0 (5.0-9.0) Ur Specific Hector 1.015 (1.005-1.025) Urine Protein 100 (2+) H (Neg-Trace) mg/dL Urine Glucose (UA) Negative (Negative) mg/dL Urine Ketones Trace (Negative) mg/dL Urine Blood Small (1+) H (Negative) Urine Nitrite Negative (Negative) Ur Leukocyte Esterase Trace H (Negative) Urine RBC >20 H (0-2) /HPF Urine WBC 0-5 (0-5) /HPF Ur Squamous Epith Cells 3-5 (0-2) /HPF Urine Bacteria None Seen (None Seen) Hyaline Casts 3-5 (0-2) /LPF Urine Opiates Screen Not Detected (Not Detect) Ur Buprenorphine Scrn Not Detected (Not Detect) ng/mL Ur Oxycodone Screen Not Detected (Not Detect) ng/mL Urine Methadone Screen Not Detected (Not Detect) ng/mL Urine Fentanyl Screen Not Detected (Not Detect) Ur Barbiturates Screen Not Detected (Not Detect) Ur Phencyclidine Scrn Not Detected (Not Detect) Ur Amphetamines Screen Not Detected (Not Detect) U Benzodiazepines Scrn Not Detected (Not Detect) Urine Cocaine Screen Not Detected (Not Detect) U Marijuana (THC) Screen POSITIVE H (Not Detect) Influenza Type A (PCR) NEGATIVE (Negative) Influenza Type B (PCR) NEGATIVE (Negative) RSV RNA Qual (PCR) NEGATIVE (Negative) SARS-CoV-2 RNA (RT-PCR) NEGATIVE (Negative) 12/29/24 12/29/24 12/29/24 Range/Units 09:46 10:50 12:01 WBC (4.8-10.8) X10*3/uL RBC (4.60-5.80) X10*6/uL Hgb (14.0-18.0) g/dl Hct (42.0-52.0) % MCV (80.0-98.0) fL MCH (27.0-33.0) pg MCHC (31.0-36.0) g/dl RDW (11.0-16.0) % Plt Count (160-400) X10*3/uL MPV (9.4-12.4) fL Immature Gran % (Auto) (0.0-0.4) % Neut % (Auto) (45-73) % Lymph % (Auto) (20-40) % Independence % (Auto) (2-11) % Eos % (Auto) (0-4) % Baso % (Auto) (0-2) % Lymph # (Auto) (1.2-4.9) X10*3/uL [place] # (Auto) (0.1-1.2) X10*3/uL Eos # (Auto) (0.0-0.4) X10*3/uL Baso # (Auto) (0.0-0.2) X10*3/uL Abs Immat Gran (auto) (0.00-0.03) X10*3/uL Absolute Neuts (auto) (2.0-8.3) x10*3/uL Absolute Nucleated RBC (0.0-0.012) X10*3/uL Nucleated RBC % (auto) (0.0-0.2) /100WBC Smear Tech's Comments ESR (0-15) MM/HR VBG pH 7.78 H* (7.32-7.43) VBG pCO2 43 mmHg VBG pO2 46 mmHg VBG HCO3 65 H (22-26) mmol/L VBG O2 Saturation 84.0 % VBG Base Excess 40.6 mmol/L Sodium (135-145) mmol/L Potassium (3.3-5.1) mmol/L Chloride (96-108) mmol/L Carbon Dioxide (22-29) mmol/L Anion Gap (12-20) BUN (9-16) mg/dL Creatinine (0.5-1.4) mg/dL Estim Creat Clear Calc Estimated GFR Random Glucose (60-115) mg/dL Lactic Acid (0.5-2.0) mmol/L Lactic Acid F/U @ 2Hr 0.9 (0.5-2.0) mmol/L Calcium (8.4-10.2) mg/dL Magnesium (1.6-2.6) mg/dL Total Bilirubin (0.0-1.0) mg/dL Direct Bilirubin (0.0-0.5) mg/dL AST (5-37) U/L ALT (0-40) U/L Alkaline Phosphatase (39-117) U/L Total Creatine Kinase (38-174) U/L Troponin I High Sens 15.8 (<3.5-35.0) ng/L C-Reactive Protein (< or = 0.50) mg/dL B-Natriuretic Peptide (<100) pg/mL Total Protein (6.5-8.0) g/dL Albumin (3.5-5.0) g/dL Lipase (8-78) U/L Beta-Hydroxybutyrate (0.02-0.27) mmol/L Urine Color Urine Appearance Urine pH (5.0-9.0) Ur Specific Hector (1.005-1.025) Urine Protein (Neg-Trace) mg/dL Urine Glucose (UA) (Negative) mg/dL Urine Ketones (Negative) mg/dL Urine Blood (Negative) Urine Nitrite (Negative) Ur Leukocyte Esterase (Negative) Urine RBC (0-2) /HPF Urine WBC (0-5) /HPF Ur Squamous Epith Cells (0-2) /HPF Urine Bacteria (None Seen) Hyaline Casts (0-2) /LPF Urine Opiates Screen (Not Detect) Ur Buprenorphine Scrn (Not Detect) ng/mL Ur Oxycodone Screen (Not Detect) ng/mL Urine Methadone Screen (Not Detect) ng/mL Urine Fentanyl Screen (Not Detect) Ur Barbiturates Screen (Not Detect) Ur Phencyclidine Scrn (Not Detect) Ur Amphetamines Screen (Not Detect) U Benzodiazepines Scrn (Not Detect) Urine Cocaine Screen (Not Detect) U Marijuana (THC) Screen (Not Detect) Influenza Type A (PCR) (Negative) Influenza Type B (PCR) (Negative) RSV RNA Qual (PCR) (Negative) SARS-CoV-2 RNA (RT-PCR) (Negative) Independent Interpretation I performed an independent interpretation of an: EKG, Ultrasound and CT Scan Interpretation: My interpretation is in agreement with the radiologist's impression of these imaging studies. L Report Number: [id number]: Total DLP = 391.00 mGy-cm EXAMINATION: CT ABDOMEN PELVIS WITHOUT IV CONTRAST HISTORY: left flank pain COMPARISON: Comparison is made with the prior examination dated 10/21/2024. TECHNIQUE: CT scan of the abdomen and pelvis was performed without contrast using standard departmental protocol. Coronal and sagittal reformatted images were generated and reviewed. Oral contrast material was not administered per department protocol. This CT exam was performed with one or more of the following dose reduction techniques: automated exposure control, adjustment of the mA and/or kV according to patient size, use of iterative reconstruction technique. DLP: 391 mGy-cm FINDINGS: LOWER CHEST: The visualized lung bases are clear. There is no pleural effusion. There is diffuse wall thickening of the distal esophagus with an adjacent 11 mm paraesophageal lymph node. These findings were not present on the prior study. CARDIOVASCULATURE: The heart is normal in size. There is no pericardial effusion. LIVER: There is atrophy of the left lobe of the liver. The liver has an otherwise unremarkable unenhanced appearance. GALLBLADDER / BILE DUCTS: The gallbladder is unremarkable. There is no intra or extrahepatic biliary ductal dilatation. SPLEEN: The spleen is normal in size and has an unremarkable unenhanced appearance. PANCREAS: The pancreas has an unremarkable unenhanced appearance. ADRENAL GLANDS: Unremarkable. KIDNEYS/RETROPERITONEUM: There is a punctate nonobstructing calculus at the upper pole of the left kidney. No right renal calculi are identified. There is no hydronephrosis or hydroureter. No ureteral calculi are seen. LYMPH NODES: No retroperitoneal lymphadenopathy is identified in the abdomen or pelvis. VASCULATURE: The abdominal aorta demonstrates atherosclerotic calcification, but is normal in caliber. MESENTERY/PERITONEUM: No free fluid. No masses. There is no free intraperitoneal gas. STOMACH: The stomach is collapsed, limiting evaluation. SMALL BOWEL: The small bowel is normal in caliber. COLON: There is diverticulosis of the sigmoid colon, without evidence of diverticulitis. APPENDIX: Normal. URINARY BLADDER/PELVIC ORGANS: The urinary bladder is collapsed, limiting evaluation. The prostate is normal in size. BONES / SOFT TISSUES: There is bilateral spondylolysis of L5 without spondylolisthesis. CT/CT abdomen pelvis wo IV con IMPRESSION: 1. Punctate nonobstructing calculus at the upper pole of the left kidney. No evidence of ureteral calculi or obstruction. 2. Wall thickening of the distal esophagus with an adjacent 11 mm paraesophageal lymph node. Further evaluation with upper endoscopy is recommended. 3. Diverticulosis of the sigmoid colon, without evidence of diverticulitis. Electronically signed by: Hank Howe MD 12/29/2024 10:52 AM EDT Dictated By: Hank Howe MD Signed By: Electronically signed by Hank Howe MD 12/29/24 1052 EXAMINATION: US ABDOMEN LIMITED HISTORY: RUQ abdominal pain TECHNIQUE: Real-time grayscale ultrasound imaging of the right upper quadrant was performed and images were reviewed. COMPARISON: Comparison is made with the prior examination dated 10/13/2017. FINDINGS: Liver: The right lobe of the liver measures 18.7 cm in size. The left lobe of the liver measures 7.8 cm in size. The liver demonstrates a nodular contour consistent with cirrhosis. There is increased hepatic echotexture consistent with steatosis. No focal mass or intrahepatic biliary ductal dilatation is identified. There is normal hepatopedal flow in the portal vein. Gallbladder and biliary tree: The gallbladder is unremarkable, without evidence of calculi, wall thickening, or pericholecystic fluid. There is no sonographic Allen sign. The common bile duct is normal in caliber measuring 4 mm. There is no free fluid in the right upper quadrant. US/US abdomen limited IMPRESSION: Hepatic steatosis and cirrhosis. No evidence of cholelithiasis. Electronically signed by: Hank Howe MD 12/29/2024 11:05 AM EDT Dictated By: Hank Howe MD Signed By: Electronically signed by Hank Howe MD 12/29/24 1105 I independently interpreted this EKG and am in agreement with the below findings: Vent. Rate: 91 BPM Atrial Rate: 91 BPM P-R Int: 150 ms QRS Dur: 92 ms QT Int: 560 ms P-R-T Axes: 75 67 73 degrees QTcB Int: 688 ms Sinus rhythm with Premature atrial complexes Incomplete right bundle branch block When compared with ECG of 21-Oct-2024 18:57, Premature atrial complexes are now Present QT has lengthened DD/ 0950 I independently interpreted this EKG and am in agreement with the below findings: Vent. Rate: 82 BPM Atrial Rate: 82 BPM P-R Int: 158 ms QRS Dur: 96 ms QT Int: 452 ms P-R-T Axes: 75 58 64 degrees QTcB Int: 528 ms Normal sinus rhythm Prolonged QT When compared with ECG of 29-Dec-2024 09:50, Premature atrial complexes are no longer Present QT has shortened DD/ 1304 Radiology Impression Discussion of test interpretation with radiology: I have reviewed the radiologist's reading. Independent Historian Clinical information obtained from an independent historian. History obtained from or confirmed by: Parent (patient's mother provided additional history and confirmed the history provided by the patient.) Critical Care Time Critical Care Time Critical Care Time: Yes Total Critical Care Time: 58 Attestation: I spent 58 minutes of Critical Care Time with this patient. This does not include time spent on separately reported billable procedures. Discharge Plan Discharge Clinical Impression: Hypokalemia, Hypomagnesemia, Acute kidney injury, Acidosis, lactic, Nausea & vomiting Patient Disposition: Admitted As Inpatient
--- NOTE | 2024-12-29 09:19 | ECG_ITS ---
Test Reason : abd pain nvd Blood Pressure : */* mmHG Vent. Rate : 91 BPM Atrial Rate : 91 BPM P-R Int : 150 ms QRS Dur : 92 ms QT Int : 560 ms P-R-T Axes : 75 67 73 degrees QTcB Int : 688 ms Sinus rhythm with Premature atrial complexes Borderline ECG When compared with ECG of 21-Oct-2024 18:57, Premature atrial complexes are now Present QT has lengthened Referred By: Keli Chavez Electronically Signed By: Enrrique Noel
[2024-12-29 09:25] LABS: SLIDE REVIEW VERIFIED
[2024-12-29 09:27] LABS: Anion Gap 18 (12-20); Carbon Dioxide 48 mmol/L (22-29); Chloride 77 mmol/L (96-108); Magnesium 1.4 mg/dL (1.6-2.6); Potassium 2.8 mmol/L (3.3-5.1); Sodium 140 mmol/L (135-145)
[2024-12-29 09:31] LABS: Influenza A PCR NEGATIVE (Negative); Influenza B PCR NEGATIVE (Negative); Resp Syncy Virus RNA Qual PCR NEGATIVE (Negative); SARS COV2 PCR INHOUSE NEGATIVE (Negative)
[2024-12-29] MEDS: Morphine Sulfate 4 MG/ML CARTRIDGE IVPUSH (09:50)
[2024-12-29] MEDS: ondansetron HCL 4 MG/2 ML VIAL IVPUSH (09:50)
[2024-12-29 09:51] LABS: Beta-Hydroxybutyrate 0.26 mmol/L (0.02-0.27); C Reactive Protein 0.62 mg/dL (< or = 0.50)
[2024-12-29] MEDS: Potassium Chloride/H20 10 MEQ/100 ML PIGGYBACK 100 MEQ IV ×4 (09:51→13:19)
[2024-12-29] MEDS: Magnesium Sulfate/H2O 2 GM/50 ML PIGGYBACK IV (09:51)
[2024-12-29] MEDS: Lactated Ringers 1,000 ML 999 ML IV ×2 (09:52→10:18)
[2024-12-29 09:54] LABS: VBG Base Excess 40.6 mmol/L; VBG HCO3 65 mmol/L (22-26); VBG pCO2 43 mmHg; VBG pH 7.78 (7.32-7.43); VBG pO2 46 mmHg
[2024-12-29 09:56] LABS: Venous Blood Gas Refer to POC result
[2024-12-29 09:56] LABS: Troponin-I High Sensitivity 17.9 ng/L (<3.5-35.0)
[2024-12-29 10:02] LABS: B Type Natriuretic Peptide 125 pg/mL (<100)
[2024-12-29 10:05] LABS: Lactic Acid 2.3 mmol/L (0.5-2.0)
[2024-12-29 10:15] LABS: Amphetamine Screen Urine Not Detected (Not Detect); Barbiturates, Urine Not Detected (Not Detect); Benzodiazepines Screen Urine Not Detected (Not Detect); Buprenorphine Scr Not Detected (Not Detect); Cannabinoid Screen Urine POSITIVE (Not Detect); Cocaine Screen Urine Not Detected (Not Detect); Fentanyl, urine Not Detected (Not Detect); Methadone Screen, Urine Not Detected (Not Detect); Opiate Screen Urine Not Detected (Not Detect); Oxycodone Screen Urine Not Detected (Not Detect); Phencyclidine Screen Urine Not Detected (Not Detect)
[2024-12-29] MEDS: HYDROmorphone HCl 1 MG/ML SYRINGE IVPUSH (10:15)
[2024-12-29] MEDS: Potassium Chloride ER 20 MEQ TAB.ER.PRT PO (10:15)
[2024-12-29 10:19] LABS: Erythrocyte Sedimentation Rate 2 MM/HR (0-15)
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
[2024-12-29] MEDS: Pantoprazole Sodium 40 MG/10 ML VIAL IVPUSH (10:48)
[2024-12-29 11:19] LABS: Troponin-I High Sensitivity 15.8 ng/L (<3.5-35.0)
--- NOTE | 2024-12-29 11:32 | P.HPHOSP_ITS ---
History of Present Illness Date of Service: 12/29/24 Attending physician on admission: Jelly Dejesus Chief Complaint: N/V/abd pain Pt is a 49-year-old male with a PMH significant for?type 1 diabetes, HTN, cirrohsis, polysubstance use disorder, erosive esophagitis, chronic back pain, and mood disorder who presents to the ED with?intractable nausea, vomiting, and abdominal pain x2 days. Pt reports has had intermittent episodes of intractable nausea, vomiting, and abdominal pain that he attributes to severe back spasms and that he has been experiencing ever since a back injury suffered during a fall a few years ago. Reports Thursday night had an intense back spasm and ever since developed intractable nausea, vomiting, and back and abdominal pain. Has been unable to tolerate anything p.o.. Denies chest pain/pressure, palpitations. No fever, chills. Denies cough. No SOB or difficulty breathing. Pt is a daily user of marijuana with a strict regimen that includes specific marijuana strains every morning and evening, as well as p.r.n. for anxiolytics, nausea suppression, and appetite stimulation. Of note, pt was admitted last year in January 2025 for similar symptoms where EGD found erosive esophagitis. In the ED pt was tachycardic up to 110 and mildly hypertensive 149/74. Labs were significant for leukocytosis 19 5, potassium 2.8, chloride 77, bicarb 48, creatinine 2.23 (previous 0.77 on 10/21/2024), lactic acid 2.3, magnesium 1.4, T bili 1.5, AST 85, ALT 54, alk-phos 175, BNP mildly elevated 125. Troponins negative. VBG with metabolic alkalosis showing pH 7.78, pCO2 43, as bicarb 65. UA not consistent with UTI. Tox screen positive for marijuana. Distending for flu, RSV, COVID. CT?of abdomen and pelvis found wall thickening of distal esophagus within adjacent 11 mm paraesophageal lymph node, recommendation for EGD. RUQ ultrasound showing hepatic steatosis and cirrhosis without evidence of cholelithiasis. EKG demonstrated sinus rhythm with QTC prolonged at 688. Pt was treated with morphine, ondansetron, potassium chloride p.o. and IV, Mag sulfate, hydromorphone, pantoprazole IV, and 2L IVF. Pt will be admitted to the hospital for treatment and further evaluation of intractable JACK, hypokalemia hypomagnesemia and metabolic alkalosis in the setting of intractable nausea and vomiting. Review of Systems 2 Review of Systems: Negative except for that which is stated in the HPI. [facility] Medical History Peripheral vascular disease Elevated liver function tests Polysubstance abuse Osteoarthritis Type 1 diabetes History of drug abuse Depression Vitamin D deficiency Hypoglycemia unawareness associated with type 1 diabetes mellitus Diabetes type 1, uncontrolled Diabetes Family History Father No problems noted. Mother No problems noted. Surgical History History of esophagogastroduodenoscopy (EGD) H/O colonoscopy Hx of hernia repair Social History Household Members: Family Household Members Other:: mother Housing: House Do you presently have visiting nurse or other home services: No Alcohol intake: former Patient Tobacco Use Status: Current everyday Tobacco user Tobacco use type: Cigarette Cigarettes Per Day: 3 Smoked in Last 30 Days: Yes e-Cigarette/Vaping Use: Currently Using Use of substances other than those prescribed or required for medical reasons: No Substance Use Type: Marijuana Advance Directives: Yes Advance Directives on File: Yes Advance Directives Date on File: 08/29/20 service: No Current occupational status: unemployed Meds Allergies Allergy/AdvReac Type Severity Reaction Status Date / Time hydroxyzine [From VISTARIL] Allergy Intermediate RASH, Verified 12/29/24 08:37 ANXIOUS quetiapine [Seroquel] AdvReac Intermediate Unknown Verified 12/29/24 08:37 Home Medications ?Medication ?Instructions ?Recorded ?Confirmed ?Last Taken ?Type clonazepam 0.5 mg tablet 0.5 mg PO DAILY PRN Anxiety 07/16/21 12/29/24 01/31/24 History insulin lispro 100 unit/mL See Rx Instructions continuous 11/01/24 12/29/24 Unknown History subcutaneous solution (Humalog subcutaneous infusion .continous U-100 Insulin) albuterol sulfate 90 mcg/actuation 2 puff inhalation Q4H PRN 12/29/24 12/29/24 Unknown History aerosol inhaler (Ventolin HFA) Respiratory Distress fluticasone 250 mcg-salmeterol 50 1 inh inhalation BID 12/29/24 12/29/24 Unknown History mcg/dose blistr powdr for inhalation (Advair Diskus) subcutaneous insulin pump (Tandem 12/29/24 12/29/24 Unknown History Mobi System) Physical Exam 2 Vital Signs and Narrative: Vital Signs: Last Vital Signs Temp 98.2 F 12/29/24 08:32 Pulse 88 12/29/24 10:48 Resp 20 12/29/24 10:48 BP 149/74 H 12/29/24 10:48 Pulse Ox 97 12/29/24 10:48 O2 Del Method Room Air 12/29/24 10:48 BMI result Body Mass Index 20.0 General: AOx3, no acute distress. Looks uncomfortable Resp: CTA bilaterally CVS: S1, S2, regular rate, tachycardic GI: +BS, no distention, diffuse abdominal tenderness Skin: Warm, dry Neuro: Cranial nerves II-XII grossly intact bilaterally. Motor grossly intact bilaterally Extremities: No edema Psych: Appropriate affect Results Labs 12/29/24 08:47 12/29/24 08:47 Labs: Laboratory Results - last 24 hr 12/29/24 12/29/24 12/29/24 08:47 08:49 09:37 MCV 97.9 MCH 36.2 H MCHC 37.0 H RDW 12.5 Plt Count 201 D MPV 9.5 Immature Gran % (Auto) 0.6 H Neut % (Auto) 81.4 H Lymph % (Auto) 9.4 L Cottle % (Auto) 8.4 Eos % (Auto) 0.0 Baso % (Auto) 0.2 Lymph # (Auto) 1.8 Cottle # (Auto) 1.6 H Eos # (Auto) 0.0 Baso # (Auto) 0.0 Abs Immat Gran (auto) 0.11 H Absolute Neuts (auto) 15.9 H Absolute Nucleated RBC 0.000 Nucleated RBC % (auto) 0.0 Smear Tech's Comments VERIFIED ESR 2 VBG pH VBG pCO2 VBG pO2 VBG HCO3 VBG O2 Saturation VBG Base Excess Anion Gap 18 Estim Creat Clear Calc 36.5 Estimated GFR 31 Random Glucose 135 H Lactic Acid 2.3 H* Calcium 8.6 Magnesium 1.4 L* Total Bilirubin 1.5 H Direct Bilirubin 0.6 H AST 85 H ALT 54 H Alkaline Phosphatase 175 H Total Creatine Kinase 91 C-Reactive Protein 0.62 H B-Natriuretic Peptide 125 H Total Protein 7.0 Albumin 3.8 Lipase 5 L Beta-Hydroxybutyrate 0.26 Urine Color Yellow Urine Appearance Clear Urine pH >= 9.0 Ur Specific Atalissa 1.015 Urine Protein 100 (2+) H Urine Glucose (UA) Negative Urine Ketones Trace Urine Blood Small (1+) H Urine Nitrite Negative Ur Leukocyte Esterase Trace H Urine RBC >20 H Urine WBC 0-5 Ur Squamous Epith Cells 3-5 Urine Bacteria None Seen Hyaline Casts 3-5 Urine Opiates Screen Not Detected Ur Buprenorphine Scrn Not Detected Ur Oxycodone Screen Not Detected Urine Methadone Screen Not Detected Urine Fentanyl Screen Not Detected Ur Barbiturates Screen Not Detected Ur Phencyclidine Scrn Not Detected Ur Amphetamines Screen Not Detected U Benzodiazepines Scrn Not Detected Urine Cocaine Screen Not Detected U Marijuana (THC) Screen POSITIVE H Influenza Type A (PCR) NEGATIVE Influenza Type B (PCR) NEGATIVE RSV RNA Qual (PCR) NEGATIVE SARS-CoV-2 RNA (RT-PCR) NEGATIVE 12/29/24 09:46 MCV MCH MCHC RDW Plt Count MPV Immature Gran % (Auto) Neut % (Auto) Lymph % (Auto) Cottle % (Auto) Eos % (Auto) Baso % (Auto) Lymph # (Auto) Cottle # (Auto) Eos # (Auto) Baso # (Auto) Abs Immat Gran (auto) Absolute Neuts (auto) Absolute Nucleated RBC Nucleated RBC % (auto) Smear Tech's Comments ESR VBG pH 7.78 H* VBG pCO2 43 VBG pO2 46 VBG HCO3 65 H VBG O2 Saturation 84.0 VBG Base Excess 40.6 Anion Gap Estim Creat Clear Calc Estimated GFR Random Glucose Lactic Acid Calcium Magnesium Total Bilirubin Direct Bilirubin AST ALT Alkaline Phosphatase Total Creatine Kinase C-Reactive Protein B-Natriuretic Peptide Total Protein Albumin Lipase Beta-Hydroxybutyrate Urine Color Urine Appearance Urine pH Ur Specific [place]issa Urine Protein Urine Glucose (UA) Urine Ketones Urine Blood Urine Nitrite Ur Leukocyte Esterase Urine RBC Urine WBC Ur Squamous Epith Cells Urine Bacteria Hyaline Casts Urine Opiates Screen Ur Buprenorphine Scrn Ur Oxycodone Screen Urine Methadone Screen Urine Fentanyl Screen Ur Barbiturates Screen Ur Phencyclidine Scrn Ur Amphetamines Screen U Benzodiazepines Scrn Urine Cocaine Screen U Marijuana (THC) Screen Influenza Type A (PCR) Influenza Type B (PCR) RSV RNA Qual (PCR) SARS-CoV-2 RNA (RT-PCR) Imaging Radiologist's Impressions: Impressions Abdomen/Pelvis CT 12/29/24 10:06 IMPRESSION: 1. Punctate nonobstructing calculus at the upper pole of the left kidney. No evidence of ureteral calculi or obstruction. 2. Wall thickening of the distal esophagus with an adjacent 11 mm paraesophageal lymph node. Further evaluation with upper endoscopy is recommended. 3. Diverticulosis of the sigmoid colon, without evidence of diverticulitis. Electronically signed by: Hank Howe MD 12/29/2024 10:52 AM EDT RP Abdomen Ultrasound 12/29/24 10:22 IMPRESSION: Hepatic steatosis and cirrhosis. No evidence of cholelithiasis. Electronically signed by: Hank Howe MD 12/29/2024 11:05 AM EDT RP Assessment and Plan (1) Acute kidney injury: Status: Acute (2) Hypomagnesemia: Status: Acute (3) Hypokalemia: Status: Acute (4) Nausea & vomiting: Status: Acute Plan Pt is a 49-year-old male with a PMH significant for?type 1 diabetes, HTN, cirrohsis, polysubstance use disorder, erosive esophagitis, chronic back pain, and mood disorder who presents to the ED with?intractable nausea, vomiting, and abdominal pain x2 days. Pt will be admitted to the hospital for treatment and further evaluation of intractable JACK, hypokalemia hypomagnesemia and metabolic alkalosis in the setting of intractable nausea and vomiting. Intractable nausea, vomiting, abdominal pain Symptoms x2 days, pt with hx of similar symptoms in the past Reports secondary to ?intense? back spasms and pain, though more likely secondary to cannabis hyperemesis syndrome Pt received ondansetron in the ED Will treat nausea with Ativan p.r.n. for now given prolonged QTC Analgesics for pain management Clear liquid diet JACK Creatinine 2.23, elevated from prior of 0.77 In the setting of intractable N/V Pt received 2 L IVF We will give additional 1 L NS Follow creatinine Acute hypokalemia Potassium 2.8 at time of presentation In the setting of intractable N/V Pt supplemented 20 mEq IV and 20 mEq p.o. in the ED We will give additional 20 mEq IV Trend labs Acute hypomagnesemia Magnesium 1.4 time of presentation In the setting of intractable N/V Supplemented Mag 2 g IV in the ED Trend labs Acute lactic acidosis, resolved Initial lactic acid 2 3 with repeat 0.9 after IVF Secondary to intractable N/V Metabolic alkalosis VBG pH 7.78 bicarb 65 Secondary to above Treat as above Prolonged QTc Initial EKG with QTc of 688 Likely secondary to electrolyte abnormalities due to intractable N/V Treat as above Repeat EKG Avoid QT prolonging agents Monitor on telemetry Esophageal thickening CT of abdomen/pelvis found wall thickening of distal esophagus with adjacent 11 mm paraesophageal lymph node Radiology recommends EGD for further evaluation GI consult NPO after midnight Protonix IV b.i.d. Transaminitis At baseline, stable Secondary to cirrhosis and hepatic steatosis Type 1 diabetes Pt to use his own insulin pump and POC reader Diabetic diet once diet advanced Full Code Attending:?Dr. Dejesus DVT Prophylaxis: Pneumatic compression due to possible EGD in the morning Pt will require a hospitalization of at least two nights for treatment of?JACK, hypokalemia, hypomagnesemia and metabolic alkalosis setting of intractable nausea vomiting likely secondary to cannabis hyperemesis syndrome. Pt will require hospital level care for close monitoring of labs, cardiac function, electrolyte replenishment as necessary, and specialist consultation with Gastroenterology likely EGD in the morning. Quality Stroke Does the patient have a stroke diagnosis?: No VTE Prior VTE?: No VTE Risk Level:: Medical - moderate - high VTE Device Contraindication: N/A - Device Ordered VTE Drug Contraindication: Treatment Not Indicated
[2024-12-29 11:46] LABS: Reflex Lactate? Lactic Acid Added
--- NOTE | 2024-12-29 11:53 | PHA.MEDREC ---
Pharmacy Consult ? Medication Reconciliation Pharmacy has completed the medication reconciliation.Med rec complete, spoke to patient and compared with claim history, patient states he uses an insulin pump
[2024-12-29] MEDS: 0.9 % Sodium Chloride 1,000 ML 999 ML IV (12:15)
[2024-12-29 12:20] LABS: ~Lactic Acid-LAB USE ONLY 0.9 mmol/L (0.5-2.0)
--- NOTE | 2024-12-29 13:00 | ECG_ITS ---
Test Reason : prolonged ekg Blood Pressure : */* mmHG Vent. Rate : 82 BPM Atrial Rate : 82 BPM P-R Int : 158 ms QRS Dur : 96 ms QT Int : 452 ms P-R-T Axes : 75 58 64 degrees QTcB Int : 528 ms Normal sinus rhythm Prolonged QT Abnormal ECG When compared with ECG of 29-Dec-2024 09:50, Premature atrial complexes are no longer Present QT has shortened Referred By: Gagan Nunez Electronically Signed By: Enrrique Noel
[2024-12-29] MEDS: HYDROmorphone HCl 0.5 MG/0.5 ML SYRINGE 1 MG IVPUSH ×4 (13:28→23:43)
--- NOTE | 2024-12-29 15:54 | PC.NURSE ---
per admitting provider, we can use pts own insulin pump and own BGL readings
[2024-12-29] MEDS: 0.9 % Sodium Chloride Flush 3 ML SYRINGE IVFLUSH ×2 (16:20→23:43)
--- NOTE | 2024-12-29 16:24 | PC.NURSE ---
Pts BGL reader reporting BGL of 92, no insulin coverage. Pt remains NPO.
[2024-12-29 16:42] LABS: Anion Gap 12 (12-20); Blood Urea Nitrogen 21 mg/dL (9-16); Calcium 7.8 mg/dL (8.4-10.2); Carbon Dioxide 42 mmol/L (22-29); Chloride 87 mmol/L (96-108); Creatinine Clr Calc Pharmacy 39.9; Estimated Glomerular Filt Rate 35; Glucose Random 69 mg/dL (60-115); Magnesium 1.8 mg/dL (1.6-2.6); Potassium 3.2 mmol/L (3.3-5.1); Sodium 138 mmol/L (135-145)
--- NOTE | 2024-12-29 18:13 | P.EN_ITS ---
Event Note Date of Service: 12/29/24 Event Note: GI Consult-Full note dictated. History via patient and EMR. Imp: Chronic GERD with a history of erosive esophagitis with multiple previous upper endoscopies, including most recently as of 01/2024. He has had previous CT scans with the findings of similar abnormalities as described on today's study. His presentation with persistent N/V is probably multifactorial due to his self- described severe back pain , use of edible cannabis, and/or possible gastroparesis from his IDDM. He appears comfortable at the present time. Rec: Supportive care, IV PPI, anti-emetics, correct metabolic abnormalities, and advance diet as tolerated. I don't think an upper endoscopy is required given his multiple previous studies and the low likelihood of any new pathology that would alter the treatment plan. 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 If things do not improve in regard to his N/V please advise me and we can reassess the need for an upper endoscopy. D/W patient in detail and he is comfortable with this plan. Thanks Time Spent With Patient Time: Total time managing care of this patient today ____ minutes.
--- NOTE | 2024-12-29 20:30 | PC.NURSE ---
This radio script writer assumed care of this Pt at 1900. Pt A&Ox3, reports 8/10 back spasms back pain worsening with movement. Pt medicated per DEC. 20:20 Pt became hypoxic 67% on RA, Pt placed on 3L via NC with effectiveness.
[2024-12-29] MEDS: Ampicillin Sodium/Sulbactam Na 3 GM in 0.9 % Sodium Chloride 100 ML IV (21:09)
[2024-12-29 21:20] LABS: Venous Blood Gas Refer to POC result
[2024-12-29 21:20] LABS: VBG Base Excess 25.1 mmol/L; VBG HCO3 52 mmol/L (22-26); VBG pCO2 63 mmHg; VBG pH 7.52 (7.32-7.43); VBG pO2 88 mmHg
[2024-12-29 21:32] LABS: Lactic Acid 0.6 mmol/L (0.5-2.0)
--- NOTE | 2024-12-29 22:13 | PM.EVENT ---
Event Note Date of Service: 12/29/24 Event Note: Notified by nursing that pt was found desatting to 67% on RA. Pt was placed on 2 L NC with improvement, though occasional desatting to 88%. CXR showed mild right basilar pulmonary opacities that may reflect mild pneumonitis. Lactic acid was drawn and WNL. Pt was started on Unasyn to cover for aspiration pneumonia. No sepsis. Leukocytosis secondary to nausea and vomiting. Time Spent With Patient Time: Total time managing care of this patient today ____ minutes.
[2024-12-30] VITALS (8 sets, daily range): BP systolic 137–179; BP diastolic 76–95; PULSE 69–90; RESP 16–20; TEMP 35.9–36.7; O2SAT 95–100
[2024-12-30] MEDS: clonazePAM 0.5 MG TABLET PO ×2 (01:39→19:58)
[2024-12-30] MEDS: HYDROmorphone HCl 0.5 MG/0.5 ML SYRINGE 1 MG IVPUSH ×7 (03:07→22:53)
[2024-12-30] MEDS: Ampicillin Sodium/Sulbactam Na 3 GM in 0.9 % Sodium Chloride 100 ML IV ×4 (03:07→20:05)
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
[2024-12-30] MEDS: Pantoprazole Sodium 40 MG/10 ML VIAL IVPUSH ×2 (06:34→16:13)
[2024-12-30 07:18] LABS: Blood Urea Nitrogen 23 mg/dL (9-16); Calcium 7.8 mg/dL (8.4-10.2); Creatinine Clr Calc Pharmacy 40.3; Estimated Glomerular Filt Rate 35; Glucose Random 104 mg/dL (60-115); Magnesium 1.7 mg/dL (1.6-2.6)
[2024-12-30 07:20] LABS: Hematocrit 35.2 % (42.0-52.0); Hemoglobin 12.9 g/dl (14.0-18.0); Mean Corpuscular HGB Conc 36.6 g/dl (31.0-36.0); Mean Corpuscular Hemoglobin 36.3 pg (27.0-33.0); Mean Corpuscular Volume 99.2 fL (80.0-98.0); Red Blood Count 3.55 X10*6/uL (4.60-5.80); Red Cell Distribution Width 12.3 % (11.0-16.0); White Blood Count 12.4 X10*3/uL (4.8-10.8)
[2024-12-30 07:25] LABS: Anion Gap 14 (12-20); Carbon Dioxide 39 mmol/L (22-29); Chloride 86 mmol/L (96-108); Sodium 136 mmol/L (135-145)
[2024-12-30 07:29] LABS: Glucose, Whole Blood 94 mg/dL (60-115)
[2024-12-30 07:46] LABS: Mean Platelet Volume 10.2 fL (9.4-12.4); Platelet Count 121 X10*3/uL (160-400)
[2024-12-30] MEDS: Fluticasone/Vilanterol 100/25 BLST.W.DEV 1 PUFF INHALE (07:50)
--- NOTE | 2024-12-30 08:26 | MHC.CM.PN ---
CM met with Patient at bedside. Patient lives in a house with his Mother/HCP/Miley and he is functionally independent. Home/self care is Patient's goal and CM has initiated and will follow for dc planning. PCP/PA is Niru Crawford and Mother vs Girlfriend will transport to home @ time of dc.
[2024-12-30] MEDS: Cyclobenzaprine HCl 5 MG TABLET PO ×2 (10:56→19:57)
[2024-12-30 11:03] LABS: Glucose, Whole Blood 128 mg/dL (60-115)
[2024-12-30 15:53] LABS: Glucose, Whole Blood 113 mg/dL (60-115)
--- NOTE | 2024-12-30 16:03 | P.PNIM_ITS ---
Subjective Subjective Date of Service: 12/30/24 Interval History: No acute issues overnight. Still with back pain and abdominal pain. GI note appreciated Review of Systems Admits to low back pain and spasms Denies chest pain and shortness of breath Denies nausea vomiting diarrhea Admits to vague abdominal pain Physical Exam 2 Vital Signs: Vital Signs: Last Vital Signs Temp 96.7 F L 12/30/24 15:17 Pulse 77 12/30/24 15:17 Resp 18 12/30/24 15:17 BP 153/85 H 12/30/24 15:17 Pulse Ox 100 12/30/24 15:17 O2 Del Method Room Air 12/30/24 15:17 O2 Flow Rate 2 12/30/24 07:23 BMI result Body Mass Index 20.0 Const: Other: Awake alert no acute distress Resp: Other: Clear but diminished throughout no rales rhonchi or wheezes Cardio: Other: No S4; positive S1-S2; no S3 murmurs rubs or gallops GI: Other: Soft nontender nondistended normoactive bowel sounds Extrem: Other: No edema bilaterally Objective Data Active Medications Acetaminophen (Acetaminophen 325 Mg Tablet) 650 mg PO Q6H PRN PRN Reason: Pain, Mild 1-3,fever,headache Albuterol Sulfate (Albuterol Sulfate 90 Mcg 8 Gm Inhaler) 2 puff INHALE Q4H PRN PRN Reason: Respiratory Distress Calcium Carbonate (Calcium Carbonate 750 Mg Tab.Chew) 750 mg PO Q4H PRN PRN Reason: Heartburn Clonazepam (Clonazepam 0.5 Mg Tablet) 0.5 mg PO DAILY PRN PRN Reason: Anxiety Last Admin: 12/30/24 01:39 Dose: 0.5 mg Documented By: REBA Cyclobenzaprine HCl (Cyclobenzaprine Hcl 5 Mg Tablet) 5 mg PO TID PRN PRN Reason: Spasms Last Admin: 12/30/24 10:56 Dose: 5 mg Documented By: GOLD Dextrose (Dextrose 50 % 25 Gm/50 Ml Syringe) 25 gm IVPUSH Q15M PRN; Protocol PRN Reason: per Hypoglycemia Standing Ord. Fluticasone/Vilanterol (Fluticasone/Vilanterol 100/25 Blst.W.Dev) 1 puff INHALE RDAILY [facility] Last Admin: 12/30/24 07:50 Dose: 1 puff Documented By: DAGO Glucose (Glucose Gel 15 Gm Gel..Gram.) 15 gm PO Q15M PRN; Protocol PRN Reason: per Hypoglycemia Standing Ord. Hydromorphone HCl (Hydromorphone Hcl 0.5 Mg/0.5 Ml Syringe) 1 mg IVPUSH Q3H PRN; Protocol PRN Reason: Pain, Severe (Pain Scale 7-10) Last Admin: 12/30/24 12:39 Dose: 1 mg Documented By: GOLD Ampicillin Sodium/Sulbactam (Sodium 3 gm/ Sodium Chloride) 100 mls @ 200 mls/hr IV Q6H [facility] Last Admin: 12/30/24 15:05 Dose: 200 mls/hr Documented By: GOLD Insulin Pump (Subcutaneous Insulin Pump) 1 each SUBCUT QIDACHS [facility]; Protocol Last Admin: 12/30/24 11:07 Dose: Not Given Documented By: GOLD Non-Admin Reason: No Insulin Coverage Lorazepam (Lorazepam 2 Mg/Ml Vial) 0.5 mg IVPUSH Q6H PRN PRN Reason: Nausea and Vomiting Magnesium Hydroxide (Milk Of Magnesia 30 Ml Oral.Susp) 30 ml PO DAILY PRN PRN Reason: Constipation Melatonin (Melatonin 3 Mg Tablet) 6 mg PO BEDTIME PRN PRN Reason: Insomnia Pantoprazole Sodium (Pantoprazole Sodium 40 Mg/10 Ml Vial) 40 mg IVPUSH BID@0630,1630 [facility] Last Admin: 12/30/24 06:34 Dose: 40 mg Documented By: REBA Sodium Chloride (0.9 % Sodium Chloride Flush 3 Ml Syringe) 3 ml IVFLUSH QSHIFT [facility] Last Admin: 12/30/24 08:46 Dose: Not Given Documented By: GOLD Non-Admin Reason: IV Running Labs 12/30/24 06:08 12/30/24 06:08 Labs: Laboratory Results - last 24 hr 12/29/24 12/29/24 12/29/24 15:44 21:08 21:17 MCV MCH MCHC RDW Plt Count MPV Absolute Nucleated RBC Nucleated RBC % (auto) VBG pH 7.52 H VBG pCO2 63 VBG pO2 88 VBG HCO3 52 H VBG O2 Saturation 100.0 VBG Base Excess 25.1 Anion Gap 12 Estim Creat Clear Calc 39.9 Estimated GFR 35 POC Glucose Random Glucose 69 Lactic Acid 0.6 Calcium 7.8 L D Magnesium 1.8 12/30/24 12/30/24 12/30/24 06:08 07:25 10:59 MCV 99.2 H MCH 36.3 H MCHC 36.6 H RDW 12.3 Plt Count 121 L D MPV 10.2 Absolute Nucleated RBC 0.000 Nucleated RBC % (auto) 0.0 VBG pH VBG pCO2 VBG pO2 VBG HCO3 VBG O2 Saturation VBG Base Excess Anion Gap 14 Estim Creat Clear Calc 40.3 Estimated GFR 35 POC Glucose 94 128 H Random Glucose 104 Lactic Acid Calcium 7.8 L Magnesium 1.7 12/30/24 15:50 MCV MCH MCHC RDW Plt Count MPV Absolute Nucleated RBC Nucleated RBC % (auto) VBG pH VBG pCO2 VBG pO2 VBG HCO3 VBG O2 Saturation VBG Base Excess Anion Gap Estim Creat Clear Calc Estimated GFR POC Glucose 113 Random Glucose Lactic Acid Calcium Magnesium Microbiology Microbiology Results: Microbiology 12/29/24 09:37 Blood Culture - Preliminary Blood - Venous No growth after 24 hours. 12/29/24 09:37 Blood Culture - Preliminary Blood - Venous No growth after 24 hours. Assessment and Plan (1) Nausea & vomiting: Status: Acute (2) Hypokalemia: Status: Acute Plan 49-year-old male with a PMH significant for?type 1 diabetes, HTN, cirrohsis, polysubstance use disorder, erosive esophagitis, chronic back pain, and mood disorder who presents to the ED with?intractable nausea, vomiting, and abdominal pain x2 days. Pt will be admitted to the hospital for treatment and further evaluation of intractable JACK, hypokalemia hypomagnesemia and metabolic alkalosis in the setting of intractable nausea and vomiting. 1.Intractable nausea, vomiting, abdominal pain -Ativan p.r.n. for now given prolonged QTC -Analgesics for pain management -clear liquid diet 2.JACK -minimal response if any to volume -continue same -follow renals/divalent 3.Acute hypokalemia -repleted -follow renal/divalent 4.Esophageal thickening -seen by GI . .. No indication for EGD -Protonix IV b.i.d. 5.Type 1 diabetes -insulin pump and POC reader -Diabetic diet once diet advanced Full Code Pneumatic compression Pt will require a hospitalization of at least two nights for treatment of?JACK, hypokalemia, hypomagnesemia and metabolic alkalosis setting of intractable nausea vomiting likely secondary to cannabis hyperemesis syndrome. Pt will require hospital level care for close monitoring of labs, cardiac function, electrolyte replenishment as necessary, and specialist consultation with Gastroenterology likely EGD in the morning. Quality Stroke Does the patient have a stroke diagnosis?: No VTE Prior VTE?: No VTE Risk Level:: Medical - moderate - high VTE Device Contraindication: N/A - Device Ordered VTE Drug Contraindication: Treatment Not Indicated
[2024-12-30] MEDS: 0.9 % Sodium Chloride Flush 3 ML SYRINGE IVFLUSH (16:18)
[2024-12-30 19:33] LABS: Glucose, Whole Blood 176 mg/dL (60-115)
[2024-12-31] MEDS: HYDROmorphone HCl 0.5 MG/0.5 ML SYRINGE 1 MG IVPUSH ×4 (01:55→12:53)
[2024-12-31] MEDS: Ampicillin Sodium/Sulbactam Na 3 GM in 0.9 % Sodium Chloride 100 ML IV ×4 (01:56→21:45)
[2024-12-31 03:39] VITALS: BP 162/72; PULSE 78; RESP 18; TEMP 36.6; O2SAT 99
[2024-12-31] MEDS: Pantoprazole Sodium 40 MG/10 ML VIAL IVPUSH ×2 (05:11→17:02)
[2024-12-31 07:05] LABS: MANUAL DIFF FLAG NO
[2024-12-31 07:09] LABS: Basophils Percent Auto 0.2 % (0-2); Eosinophils Absolute Auto 0.1 X10*3/uL (0.0-0.4); Eosinophils Percent Auto 1.1 % (0-4); Hematocrit 36.2 % (42.0-52.0); Hemoglobin 13.2 g/dl (14.0-18.0); Imm Gran Abs Auto 0.04 X10*3/uL (0.00-0.03); Imm Gran Pct Auto 0.4 % (0.0-0.4); Lymphocytes Absolute Auto 1.4 X10*3/uL (1.2-4.9); Lymphocytes Percent Auto 14.7 % (20-40); Mean Corpuscular HGB Conc 36.5 g/dl (31.0-36.0); Mean Corpuscular Hemoglobin 35.8 pg (27.0-33.0); Mean Corpuscular Volume 98.1 fL (80.0-98.0); Mean Platelet Volume 10.3 fL (9.4-12.4); Monocytes Absolute Auto 1.2 X10*3/uL (0.1-1.2); Monocytes Percent Auto 13.1 % (2-11); Neutrophils Absolute Auto 6.5 x10*3/uL (2.0-8.3); Neutrophils Percent Auto 70.5 % (45-73); Platelet Count 115 X10*3/uL (160-400); Red Blood Count 3.69 X10*6/uL (4.60-5.80); White Blood Count 9.3 X10*3/uL (4.8-10.8)
[2024-12-31 07:27] VITALS: BP 162/83; PULSE 77; RESP 16; TEMP 36.2; O2SAT 97
[2024-12-31 07:32] LABS: Alanine Aminotransferase 43 U/L (0-40); Albumin Level 3.4 g/dL (3.5-5.0); Alkaline Phosphatase 138 U/L (39-117); Anion Gap 16 (12-20); Aspartate Amino Transferase 80 U/L (5-37); Bilirubin Total 1.2 mg/dL (0.0-1.0); Blood Urea Nitrogen 18 mg/dL (9-16); Calcium 8.2 mg/dL (8.4-10.2); Carbon Dioxide 37 mmol/L (22-29); Chloride 86 mmol/L (96-108); Creatinine Clr Calc Pharmacy 43.8; Estimated Glomerular Filt Rate 39; Glucose Fasting 151 mg/dL (60-99); Magnesium 1.6 mg/dL (1.6-2.6); Sodium 136 mmol/L (135-145)
[2024-12-31 07:36] VITALS: PULSE 98; RESP 16; O2SAT 93
[2024-12-31] MEDS: Fluticasone/Vilanterol 100/25 BLST.W.DEV 1 PUFF INHALE (07:37)
[2024-12-31 07:43] LABS: Glucose, Whole Blood 137 mg/dL (60-115)
[2024-12-31] MEDS: Cyclobenzaprine HCl 5 MG TABLET PO ×2 (07:52→18:27)
[2024-12-31] MEDS: 0.9 % Sodium Chloride Flush 3 ML SYRINGE IVFLUSH ×2 (07:59→16:07)
[2024-12-31 11:02] LABS: Glucose, Whole Blood 190 mg/dL (60-115)
[2024-12-31 11:17] VITALS: BP 140/69; PULSE 88; RESP 16; TEMP 36; O2SAT 95
[2024-12-31] MEDS: Milk of Magnesia 30 ML ORAL.SUSP PO (12:56)
--- NOTE | 2024-12-31 15:05 | HO.PM.IMPN ---
Subjective Subjective Date of Service: 12/31/24 Interval History: Slowly improving. Tolerating diet Review of Systems Admits to low back pain and spasms Denies chest pain and shortness of breath Denies nausea vomiting diarrhea Admits to vague abdominal pain Physical Exam Vital Signs: Vital Signs: Last Vital Signs Temp 96.8 F 12/31/24 11:17 Pulse 88 12/31/24 11:17 Resp 16 12/31/24 11:17 BP 140/69 H 12/31/24 11:17 Pulse Ox 95 12/31/24 11:17 O2 Del Method Room Air 12/31/24 11:17 O2 Flow Rate 2 12/30/24 07:23 BMI result Body Mass Index 20.0 Const: Other: Awake alert no acute distress Resp: Other: Clear but diminished throughout no rales rhonchi or wheezes Cardio: Other: No S4; positive S1-S2; no S3 murmurs rubs or gallops GI: Other: Soft nontender nondistended normoactive bowel sounds Extrem: Other: No edema bilaterally Objective Data Active Medications Acetaminophen (Acetaminophen 325 Mg Tablet) 650 mg PO Q6H PRN PRN Reason: Pain, Mild 1-3,fever,headache Albuterol Sulfate (Albuterol Sulfate 90 Mcg 8 Gm Inhaler) 2 puff INHALE Q4H PRN PRN Reason: Respiratory Distress Calcium Carbonate (Calcium Carbonate 750 Mg Tab.Chew) 750 mg PO Q4H PRN PRN Reason: Heartburn Clonazepam (Clonazepam 0.5 Mg Tablet) 0.5 mg PO DAILY PRN PRN Reason: Anxiety Last Admin: 12/30/24 19:58 Dose: 0.5 mg Documented By: LUKASZ Cyclobenzaprine HCl (Cyclobenzaprine Hcl 5 Mg Tablet) 5 mg PO TID PRN PRN Reason: Spasms Last Admin: 12/31/24 07:52 Dose: 5 mg Documented By: GAUTAM Dextrose (Dextrose 50 % 25 Gm/50 Ml Syringe) 25 gm IVPUSH Q15M PRN; Protocol PRN Reason: per Hypoglycemia Standing Ord. Fluticasone/Vilanterol (Fluticasone/Vilanterol 100/25 Blst.W.Dev) 1 puff INHALE RDAILY [facility] Last Admin: 12/31/24 07:37 Dose: 1 puff Documented By: KELLY Glucose (Glucose Gel 15 Gm Gel..Gram.) 15 gm PO Q15M PRN; Protocol PRN Reason: per Hypoglycemia Standing Ord. Hydromorphone HCl (Hydromorphone Hcl 1 Mg/Ml Syringe) 1 mg IVPUSH Q4H PRN; Protocol PRN Reason: Pain, Severe (Pain Scale 7-10) Ampicillin Sodium/Sulbactam (Sodium 3 gm/ Sodium Chloride) 100 mls @ 200 mls/hr IV Q6H [facility] Last Infusion: 12/31/24 08:40 Dose: Infused Documented By: GAUTAM Insulin Pump (Subcutaneous Insulin Pump) 1 each SUBCUT QIDACHS [facility]; Protocol Last Admin: 12/31/24 13:04 Dose: Not Given Documented By: GAUTAM Non-Admin Reason: patient has insulin pump Lorazepam (Lorazepam 2 Mg/Ml Vial) 0.5 mg IVPUSH Q6H PRN PRN Reason: Nausea and Vomiting Magnesium Hydroxide (Milk Of Magnesia 30 Ml Oral.Susp) 30 ml PO DAILY PRN PRN Reason: Constipation Last Admin: 12/31/24 12:56 Dose: 30 ml Documented By: GAUTAM Melatonin (Melatonin 3 Mg Tablet) 6 mg PO BEDTIME PRN PRN Reason: Insomnia Oxycodone HCl (Oxycodone Hcl Immed Release 5 Mg Tablet) 10 mg PO Q4H PRN PRN Reason: Pain, Moderate(Pain Scale 4-6) Pantoprazole Sodium (Pantoprazole Sodium 40 Mg/10 Ml Vial) 40 mg IVPUSH BID@0630,1630 [facility] Last Admin: 12/31/24 05:11 Dose: 40 mg Documented By: LUKASZ Sodium Chloride (0.9 % Sodium Chloride Flush 3 Ml Syringe) 3 ml IVFLUSH QSHIFT [facility] Last Admin: 12/31/24 07:59 Dose: 3 ml Documented By: GAUTAM Labs 12/31/24 06:36 12/31/24 06:36 Labs: Laboratory Results - last 24 hr 12/30/24 12/30/24 12/31/24 15:50 19:26 06:36 MCV 98.1 H MCH 35.8 H MCHC 36.5 H RDW 12.0 Plt Count 115 L MPV 10.3 Immature Gran % (Auto) 0.4 Neut % (Auto) 70.5 Lymph % (Auto) 14.7 L [place] % (Auto) 13.1 H Eos % (Auto) 1.1 Baso % (Auto) 0.2 Lymph # (Auto) 1.4 [place] # (Auto) 1.2 Eos # (Auto) 0.1 Baso # (Auto) 0.0 Abs Immat Gran (auto) 0.04 H Absolute Neuts (auto) 6.5 Absolute Nucleated RBC 0.000 Nucleated RBC % (auto) 0.0 Anion Gap 16 Estim Creat Clear Calc 43.8 Estimated GFR 39 POC Glucose 113 176 H Fasting Glucose 151 H Calcium 8.2 L Magnesium 1.6 Total Bilirubin 1.2 H AST 80 H ALT 43 H Alkaline Phosphatase 138 H Total Protein 6.0 L Albumin 3.4 L 12/31/24 12/31/24 07:29 10:56 MCV MCH MCHC RDW Plt Count MPV Immature Gran % (Auto) Neut % (Auto) Lymph % (Auto) [place] % (Auto) Eos % (Auto) Baso % (Auto) Lymph # (Auto) [place] # (Auto) Eos # (Auto) Baso # (Auto) Abs Immat Gran (auto) Absolute Neuts (auto) Absolute Nucleated RBC Nucleated RBC % (auto) Anion Gap Estim Creat Clear Calc Estimated GFR POC Glucose 137 H 190 H Fasting Glucose Calcium Magnesium Total Bilirubin AST ALT Alkaline Phosphatase Total Protein Albumin Microbiology Microbiology Results: Microbiology 12/29/24 09:37 Blood Culture - Preliminary Blood - Venous No growth after 48 hours. 12/29/24 09:37 Blood Culture - Preliminary Blood - Venous No growth after 48 hours. Assessment and Plan (1) Nausea & vomiting: Status: Acute (2) Acute kidney injury: Status: Acute Plan 49-year-old male with a PMH significant for?type 1 diabetes, HTN, cirrohsis, polysubstance use disorder, erosive esophagitis, chronic back pain, and mood disorder who presents to the ED with?intractable nausea, vomiting, and abdominal pain x2 days. Pt will be admitted to the hospital for treatment and further evaluation of intractable JACK, hypokalemia hypomagnesemia and metabolic alkalosis in the setting of intractable nausea and vomiting. 1.Intractable nausea, vomiting, abdominal pain -Ativan p.r.n. for now given prolonged QTC -Analgesics for pain management -tolerating advancement of diet to diabetic -oral analgesics added ... Hopeful DC in a.m. 2.JACK -improved this a.m. -continue same -follow renals/divalent 3.Acute hypokalemia -repleted -follow renal/divalent 4.Esophageal thickening -seen by GI . .. No indication for EGD -Protonix IV b.i.d... Switch to p.o. upon discharge 5.Type 1 diabetes -insulin pump and POC reader -Diabetic diet once diet advanced Full Code Pneumatic compression Pt will require a hospitalization of at least two nights for treatment of?JACK, hypokalemia, hypomagnesemia and metabolic alkalosis setting of intractable nausea vomiting likely secondary to cannabis hyperemesis syndrome. Pt will require hospital level care for close monitoring of labs, cardiac function, electrolyte replenishment as necessary, and specialist consultation with Gastroenterology likely EGD in the morning. Quality Stroke Does the patient have a stroke diagnosis?: No VTE Prior VTE?: No VTE Risk Level:: Medical - moderate - high VTE Device Contraindication: N/A - Device Ordered VTE Drug Contraindication: Treatment Not Indicated
[2024-12-31] MEDS: oxyCODONE HCl Immed Release 5 MG TABLET 10 MG PO ×2 (15:29→19:39)
[2024-12-31 16:00] VITALS: BP 167/83; PULSE 95; RESP 18; TEMP 36.3; O2SAT 97
[2024-12-31 17:00] LABS: Glucose, Whole Blood 136 mg/dL (60-115)
[2024-12-31 19:32] VITALS: BP 177/101; PULSE 94; RESP 17; TEMP 37; O2SAT 99
[2024-12-31] MEDS: clonazePAM 0.5 MG TABLET PO (19:40)
[2024-12-31 20:51] LABS: Glucose, Whole Blood 98 mg/dL (60-115)
[2024-12-31] MEDS: HYDROmorphone HCl 1 MG/ML SYRINGE IVPUSH (22:03)
[2025-01-01] VITALS: BP 170/87; PULSE 84; RESP 18; TEMP 37; O2SAT 95
[2025-01-01] MEDS: oxyCODONE HCl Immed Release 5 MG TABLET 10 MG PO ×2 (00:16→08:00)
[2025-01-01] MEDS: Ampicillin Sodium/Sulbactam Na 3 GM in 0.9 % Sodium Chloride 100 ML IV ×2 (02:01→08:00)
[2025-01-01] MEDS: 0.9 % Sodium Chloride Flush 3 ML SYRINGE IVFLUSH ×2 (02:01→08:01)
[2025-01-01 03:47] VITALS: BP 157/83; PULSE 97; RESP 16; TEMP 37.1; O2SAT 95
[2025-01-01] MEDS: HYDROmorphone HCl 1 MG/ML SYRINGE IVPUSH (03:59)
[2025-01-01 06:58] LABS: MANUAL DIFF FLAG NO
[2025-01-01] MEDS: Pantoprazole Sodium 40 MG/10 ML VIAL IVPUSH (07:02)
[2025-01-01 07:08] LABS: Basophils Percent Auto 0.6 % (0-2); Eosinophils Absolute Auto 0.1 X10*3/uL (0.0-0.4); Eosinophils Percent Auto 1.8 % (0-4); Hematocrit 34.7 % (42.0-52.0); Hemoglobin 12.5 g/dl (14.0-18.0); Imm Gran Abs Auto 0.03 X10*3/uL (0.00-0.03); Imm Gran Pct Auto 0.4 % (0.0-0.4); Lymphocytes Absolute Auto 1.3 X10*3/uL (1.2-4.9); Lymphocytes Percent Auto 19.5 % (20-40); Mean Corpuscular Hemoglobin 35.9 pg (27.0-33.0); Mean Corpuscular Volume 99.7 fL (80.0-98.0); Mean Platelet Volume 10.4 fL (9.4-12.4); Monocytes Absolute Auto 1.2 X10*3/uL (0.1-1.2); Monocytes Percent Auto 17.9 % (2-11); Neutrophils Absolute Auto 4.1 x10*3/uL (2.0-8.3); Neutrophils Percent Auto 59.8 % (45-73); Platelet Count 102 X10*3/uL (160-400); Red Blood Count 3.48 X10*6/uL (4.60-5.80); Red Cell Distribution Width 11.9 % (11.0-16.0); White Blood Count 6.8 X10*3/uL (4.8-10.8)
[2025-01-01 07:19] LABS: Glucose, Whole Blood 131 mg/dL (60-115)
[2025-01-01 07:30] LABS: Alanine Aminotransferase 53 U/L (0-40); Albumin Level 3.2 g/dL (3.5-5.0); Alkaline Phosphatase 131 U/L (39-117); Anion Gap 13 (12-20); Aspartate Amino Transferase 99 U/L (5-37); Blood Urea Nitrogen 12 mg/dL (9-16); Calcium 8.3 mg/dL (8.4-10.2); Carbon Dioxide 37 mmol/L (22-29); Chloride 92 mmol/L (96-108); Creatinine Clr Calc Pharmacy 42.4; Estimated Glomerular Filt Rate 37; Glucose Fasting 123 mg/dL (60-99); Sodium 139 mmol/L (135-145); Total Protein 5.8 g/dL (6.5-8.0)
[2025-01-01] MEDS: Fluticasone/Vilanterol 100/25 BLST.W.DEV 1 PUFF INHALE (07:45)
[2025-01-01 07:46] VITALS: PULSE 107; RESP 16; O2SAT 98
[2025-01-01 07:48] VITALS: BP 171/74; PULSE 99; RESP 20; TEMP 36.3; O2SAT 96
[2025-01-01] MEDS: Cyclobenzaprine HCl 5 MG TABLET PO (10:52)
--- NOTE | 2025-01-01 10:53 | P.DS_ITS ---
DS: Providers Provider Date of Service: 01/01/25 Date of admission: 12/29/24 12:38 Date of discharge: 01/01/25 Primary care physician: EVELIA Arana Consults: 12/29/24 11:54 Consult to Gastroenterology Stat Consulting Provider: Hank Stanford Reason for consultation: N/V, abnormal CT findings. Has provider been notified: Yes 12/29/24 12:34 Consult to Gastroenterology Routine Consulting Provider: Mague Benson Reason for consultation: Esophageal thickening on CT, ?EGD DS: Diagnosis Discharge Diagnosis (1) Nausea & vomiting: Status: Acute (2) Acute kidney injury: Status: Acute DS: Summary Hospital Course Hospital Course: 49-year-old male with a PMH significant for?type 1 diabetes, HTN, cirrohsis, polysubstance use disorder, erosive esophagitis, chronic back pain, and mood disorder who presents to the ED with?intractable nausea, vomiting, and abdominal pain x2 days. Pt reports has had intermittent episodes of intractable nausea, vomiting, and abdominal pain that he attributes to severe back spasms and that he has been experiencing ever since a back injury suffered during a fall a few years ago. Reports Thursday night had an intense back spasm and ever since developed intractable nausea, vomiting, and back and abdominal pain. Has been unable to tolerate anything p.o.. Denies chest pain/pressure, palpitations. No fever, chills. Denies cough. No SOB or difficulty breathing. Pt is a daily user of marijuana with a strict regimen that includes specific marijuana strains every morning and evening, as well as p.r.n. for anxiolytics, nausea suppression, and appetite stimulation. Of note, pt was admitted last year in January 2025 for similar symptoms where EGD found erosive esophagitis. ED course Pt was tachycardic up to 110 and mildly hypertensive 149/74. Labs were significant for leukocytosis 19 5, potassium 2.8, chloride 77, bicarb 48, creatinine 2.23 (previous 0.77 on 10/21/2024), lactic acid 2.3, magnesium 1.4, T bili 1.5, AST 85, ALT 54, alk-phos 175, BNP mildly elevated 125. Troponins negative. VBG with metabolic alkalosis showing pH 7.78, pCO2 43, as bicarb 65. UA not consistent with UTI. Tox screen positive for marijuana. Distending for flu, RSV, COVID. CT?of abdomen and pelvis found wall thickening of distal esophagus within adjacent 11 mm paraesophageal lymph node, recommendation for EGD. RUQ ultrasound showing hepatic steatosis and cirrhosis without evidence of cholelithiasis. EKG demonstrated sinus rhythm with QTC prolonged at 688. Pt was treated with morphine, ondansetron, potassium chloride p.o. and IV, Mag sulfate, hydromorphone, pantoprazole IV, and 2L IVF. Pt will be admitted to the hospital for treatment and further evaluation of intractable JACK, hypokalemia hyp omagnesemia and metabolic alkalosis in the setting of intractable nausea and vomiting. Hospital COurse Patient was admitted to telemetry where his monitor failed to demonstrate any acute dysrhythmias. Was seen in consultation by GI Dr. Stanford. Dr. Stanford felt there was no indication for intervention at this time and recommended he be maintained on a proton pump inhibitor. Chest x-ray demonstrated mild right basilar opacification question of pneumonitis. He was empirically treated with Mirapex him. Over the course of the next 72 hours he progressed in his diet was advanced from clears to the day of discharge he was tolerating a full diet without issue. He will be discharged home to complete a course of Augmentin and will follow up with Dr. Stanford and PCP in office Time Attestation Discharge Coordination Time (in mins): 35 Quality: Safe Use of Opioids Does Pt have an Active Cancer Diagnosis on the Problem List?: No Quality: Stroke Does the patient have a stroke diagnosis?: No Physical Exam Vital Signs: Vital Signs: Last Vital Signs Temp 97.4 F 01/01/25 07:48 Pulse 99 01/01/25 07:48 Resp 20 01/01/25 07:48 BP 171/74 H 01/01/25 07:48 Pulse Ox 96 01/01/25 07:48 O2 Del Method Room Air 01/01/25 07:48 O2 Flow Rate 2 12/30/24 07:23 BMI result Body Mass Index 20.0 Const: Other: Awake alert no acute distress Resp: Other: Clear but diminished throughout no rales rhonchi or wheezes Cardio: Other: No S4; positive S1-S2; no S3 murmurs rubs or gallops GI: Other: Soft nontender nondistended normoactive bowel sounds Extrem: Other: No edema bilaterally DS: Data Data Completed and Pending Completed studies during hospitalization [Text1]: Procedures Excision of Stomach, Pylorus, Via Natural or Artificial Opening Endoscopic, Diagnostic (02/02/24) Labs on day of discharge: Laboratory Results - last 24 hr 12/31/24 12/31/24 12/31/24 10:56 16:43 19:35 WBC RBC Hgb Hct MCV MCH MCHC RDW Plt Count MPV Immature Gran % (Auto) Neut % (Auto) Lymph % (Auto) Henderson % (Auto) Eos % (Auto) Baso % (Auto) Lymph # (Auto) Henderson # (Auto) Eos # (Auto) Baso # (Auto) Abs Immat Gran (auto) Absolute Neuts (auto) Absolute Nucleated RBC Nucleated RBC % (auto) Sodium Potassium Chloride Carbon Dioxide Anion Gap BUN Creatinine Estim Creat Clear Calc Estimated GFR POC Glucose 190 H 136 H 98 Fasting Glucose Calcium Total Bilirubin AST ALT Alkaline Phosphatase Total Protein Albumin 01/01/25 01/01/25 06:20 07:15 WBC 6.8 RBC 3.48 L Hgb 12.5 L Hct 34.7 L MCV 99.7 H MCH 35.9 H MCHC 36.0 RDW 11.9 Plt Count 102 L MPV 10.4 Immature Gran % (Auto) 0.4 Neut % (Auto) 59.8 Lymph % (Auto) 19.5 L Henderson % (Auto) 17.9 H Eos % (Auto) 1.8 Baso % (Auto) 0.6 Lymph # (Auto) 1.3 Henderson # (Auto) 1.2 Eos # (Auto) 0.1 Baso # (Auto) 0.0 Abs Immat Gran (auto) 0.03 Absolute Neuts (auto) 4.1 Absolute Nucleated RBC 0.000 Nucleated RBC % (auto) 0.0 Sodium 139 Potassium 3.0 L Chloride 92 L Carbon Dioxide 37 H Anion Gap 13 BUN 12 Creatinine 1.92 H Estim Creat Clear Calc 42.4 Estimated GFR 37 POC Glucose 131 H Fasting Glucose 123 H Calcium 8.3 L Total Bilirubin 1.0 AST 99 H ALT 53 H Alkaline Phosphatase 131 H Total Protein 5.8 L Albumin 3.2 L Preliminary micro results at discharge 12/29/24 09:37 Blood Culture - Preliminary Blood - Venous No growth after 48 hours. 12/29/24 09:37 Blood Culture - Preliminary Blood - Venous No growth after 48 hours. Discharge Plan Discharge Anticipated Discharge Date/Time: 01/01/25 10:43 Patient Disposition: Home, Self-Care Discharge Diagnosis: Acute kidney injury Referrals: Niru Crawford PA [Primary Care Provider] - 1 Week Discharge Medications: New amoxicillin-pot clavulanate 875-125 mg tablet 1 tab PO BID Qty: 20 0RF oxycodone 10 mg tablet 10 mg PO Q8H PRN (Reason: pain) Qty: 20 0RF Rx Instructions: Partial Fill upon patient request. cyclobenzaprine 5 mg tablet 5 mg PO TID PRN (Reason: muscle spasm) Qty: 30 0RF Continued (DME) insulin syringe-needle U-100 [BD Insulin Syringe] 0.3 mL 29 gauge x 1/2 syringe See Rx Instructions .ROUTE .MEDSUPPLY Qty: 150 5RF Rx Instructions: 4 times a day (DME) pen needle, diabetic [BD Felisha 2nd Gen Pen Needle] 32 gauge x 5/32 needle See Rx Instructions .ROUTE .MEDSUPPLY Qty: 50 4RF Rx Instructions: once a day (DME) 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 meter [FreeStyle Lite Meter] Kit See Rx Instructions .Route Qty: 1 0RF Rx Instructions: As directed-checks 4 X/day insulin lispro [Humalog U-100 Insulin] 100 unit/mL solution See Rx Instructions continuous subcutaneous infusion .continous Rx Instructions: Infuse up to 100 units daily via insulin pump via continuous subcutaneous infusion CONTINOUS; (DME) Tandem Mobi System Misc MISCELLANEOUS Rx Instructions: UP TO 100 UNITS INSULIN LISPRO DAILY VIA PUMP fluticasone propion-salmeterol [Advair Diskus] 250-50 mcg/dose Blister With Device 1 inh INHALATION BID albuterol sulfate [Ventolin HFA] 90 mcg/actuation Hfa Aerosol Inhaler 2 puff INHALATION Q4H PRN (Reason: Respiratory Distress) omeprazole 40 mg Capsule,Delayed Release(Dr/Ec) 40 mg PO BID@0630,1630 Qty: 180 0RF clonazepam 0.5 mg tablet 0.5 mg PO DAILY PRN (Reason: Anxiety) Rx Instructions: AT BEDTIME (DME) FreeStyle Lite Strips Strip See Rx Instructions .ROUTE .MEDSUPPLY Qty: 300 11RF Rx Instructions: 4x daily (DME) lancets [FreeStyle Lancets] 28 gauge misc See Rx Instructions .Route Qty: 100 5RF Rx Instructions: As directed 4 X/day (DME) Ketone Urine Test Strip See Rx Instructions .ROUTE .MEDSUPPLY Qty: 25 1RF Rx Instructions: prn tid for nausea, vomiting, illness, glucose remaining over 250 Baqsimi 3 mg/actuation spray,non-aerosol 3 mg intranasal ONCE MDD 6 mg PRN (Reason: severe hypoglycemia may repeat in 15 mintues) 30 Days Qty: 2 2RF Discharge Orders: Discharge Order (Routine); Ordered 01/01/25 Ordered By: Kyrie Mcnair Diet: Advance to usual diet Activity on Discharge: As tolerated Stand Alone Forms: Patient Portal Discharge page Print Language: Bengali Care Plan Goals: Complete of course of Augmentin as ordered. Resume your omeprazole as taken previous to the hospital. Oxycodone for pain as needed Health Concerns: Each called Dr. Stanford's office for follow up. He will dictate care going forward Plan of Treatment: Resume all pre-hospital medications and therapies Assessment: See discharge summary
--- NOTE | 2025-01-01 11:34 | MHC.CM.PN ---
PT TO DC HOME TODAY WITH NO SERVICES VIA PRIVATE TRANSPORT
== END 2025-01-01 11:20 | disposition home or self-care (01) | DRG 137 ==
LOC: HO.ED 11:15 → HO.EDOVER 12:40 → HO.IMC 23:40
PROVIDERS: Family Medicine; Physician Assistant Medical; Admitting Provider Student in an Organized Health Care Education/Training Program; Emergency Provider Emergency Medicine; Visit Provider Hospitalist
DX: J69.0 Pneumonitis due to inhalation of food and vomit (principal); N17.9 Acute kidney failure, unspecified; K76.0 Fatty (change of) liver, not elsewhere classified; E87.3 Alkalosis; E87.21 Acute metabolic acidosis; E83.42 Hypomagnesemia; F17.210 Nicotine dependence, cigarettes, uncomplicated; Z71.6 Tobacco abuse counseling; E87.6 Hypokalemia; F19.90 Other psychoactive substance use, unspecified, uncomplicated; Z96.41 Presence of insulin pump (external) (internal); E10.9 Type 1 diabetes mellitus without complications; Z20.822 Contact with and (suspected) exposure to COVID-19; Z79.51 Long term (current) use of inhaled steroids; Z79.899 Other long term (current) drug therapy
CPT/HCPCS: 0241U; 36415; 71045; 74176; 76705; 80048; 80053; 80076; 80307; 81001; 82010; 82550; 82803; 82947; 83605; 83690; 83735; 83880; 84484; 85025; 85027; 85652; 86140; 87040; 93005; 94640; 94664; 99285; J0295; J1171; J2270; J2405; J2470; J3475; J3480; J7120

== ENCOUNTER → 2024-12-29 09:19 | Outpatient (BNV) | payer MEDICAID, SELFPAY | PROVIDERS: Admitting Provider Student in an Organized Health Care Education/Training Program; Emergency Provider Emergency Medicine; Visit Provider Internal Medicine Cardiovascular Disease | DX: I49.1 Atrial premature depolarization (principal); R94.31 Abnormal electrocardiogram [ECG] [EKG]; Z13.6 Encounter for screening for cardiovascular disorders | CPT/HCPCS: 93010 ==

== ENCOUNTER → 2024-12-29 09:24 | Outpatient (BNV) | payer MEDICAID, SELFPAY | PROVIDERS: Emergency Provider Emergency Medicine; Visit Provider Radiology Diagnostic Radiology | DX: N20.0 Calculus of kidney (principal); K57.30 Diverticulosis of large intestine without perforation or abscess without bleeding; R59.0 Localized enlarged lymph nodes; K76.0 Fatty (change of) liver, not elsewhere classified; K74.60 Unspecified cirrhosis of liver; R09.02 Hypoxemia | CPT/HCPCS: 71045 ==

== ENCOUNTER → 2024-12-29 12:38 | Outpatient (BNV) | payer MEDICAID, SELFPAY | PROVIDERS: Admitting Provider Student in an Organized Health Care Education/Training Program; Emergency Provider Emergency Medicine; Visit Provider Student in an Organized Health Care Education/Training Program | DX: R11.2 Nausea with vomiting, unspecified (principal); E87.6 Hypokalemia | CPT/HCPCS: 99223; 99233; 99239; 99499 ==

== ENCOUNTER 2025-01-10 10:17 | Outpatient (AMB) | payer MEDICAID, SELFPAY ==
--- NOTE | 2025-01-10 10:19 | A.OFFVIS_ITS ---
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 Pt states both legs are equal, states that he tries to be active but does have LE pain and back pain. Pt states started about 5 years ago with injury. and most recently had an accident in October that worsened issue as well. 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 He indicates that the issues with his legs may be linked to back and upper spine problems, related to past injuries, with the most recent occurring on October 21. He has experienced severe back spasms, recently resulting in hospitalization, with symptoms intense enough to cause vomiting. The patient reports that, while sitting or lying down with the legs hanging, he feels tingling from the waist down. His leg pain, especially in the right leg, exacerbates when walking on inclines due to impingement and a torn labrum on both sides, although he can walk flat surfaces about two to three miles. Smoking approximately three cigarettes daily and a history of Type 1 Diabetes Mellitus diagnosed at 34 years further complicates the vascular assessment. No current back and leg pain treatments except pain medications and Flexeril received during hospitalization. Physical therapy has been planned to address these issues but is yet to commence. He now presents for vascular evaluation [facility] Medical History Peripheral vascular disease Elevated liver function tests Polysubstance abuse Osteoarthritis Type 1 diabetes History of drug abuse Depression Vitamin D deficiency 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 Mother No problems noted. Social History Household Members: Family Household Members Other:: mother Housing: House Do you presently have visiting nurse or other home services: No Alcohol intake: former Patient Tobacco Use Status: Current everyday Tobacco user Tobacco use type: Cigarette Cigarettes Per Day: 3 Years Smoked: 33 e-Cigarette/Vaping Use: Currently Using Substance Use Type: Marijuana Advance Directives Date on File: 08/29/20 service: No Current occupational status: unemployed Review of Systems Const All systems reviewed & are unremarkable except as noted in HPI and below Reports no additional complaints ENT Reports Normal hearing present Card Denies chest pain, Denies chest pain at rest, Denies chest pain with activity and Denies pedal edema Resp Denies cough GI Denies abdominal pain Musc Denies abnormal gait, Denies muscle cramps and Denies radiating pain into limb Skin/Breast Denies skin ulcer and Denies wounds Neuro Reports Normal hearing present and Denies abnormal gait Psych Reports no additional complaints Physical Exam Vital Signs: BMI result Body Mass Index 21.6 Const General: cooperative, healthy appearing and comfortable Orientation/consciousness: oriented to person, oriented to place and oriented to time HEENT Head: Yes normal to inspection Neck Neck: Yes normal visual inspection Carotids: no bruits Chest Chest palpation & inspection: normal inspection of the chest Resp Effort & Inspection: normal respiratory effort and able to speak in complete sentences Auscultation: clear to auscultation bilaterally, no crackles, no rales, no rhonchi and no wheezes Cardio Other: Bilateral palpable dorsalis pedis pulses Rate: regular rate Rhythm: regular rhythm Heart sounds: S1 normal heart sound present and S2 normal heart sound present Bruits: no carotid bruits Peripheral pulses: Peripheral pulses 2+ throughout GI Inspection: Yes normal to inspection Skin Wounds: no wounds Hair: normal Neuro General: oriented to person, oriented to place and oriented to time Cranial nerves: Yes CN's II-XII intact bilaterally and Yes Normal hearing present Cognition (Neuro): normal cognition Motor exam (neuro): 5/5 motor strength present throughout Extrem Other: venous exam: No significant superficial varicosities or spider telangiectasias, minimal edema General: No clubbing, No cyanosis and No edema Psych Appearance: grossly normal Mental Status: mental status grossly normal Speech and movement: Normal speech and movement present Assessment & Plan Assessment & Plan (1) Peripheral vascular disease: Code(s): I73.9 - Peripheral vascular disease, unspecified Category: Medical Plan: In short unclear if this is truly vascular related lower extremity pain. I do think arterial testing is a bit of an over read as I am able to appreciate palpable dorsalis pedis pulses bilaterally. We did discuss risk factor modification and he will be scheduled for six-month follow-up with us. Thank you for allowing us to assist in his care. If there are any questions or concerns please do not hesitate to contact us. (2) Back pain: Code(s): M54.9 - Dorsalgia, unspecified Category: Medical Qualifiers: Back pain location: low back pain Chronicity: chronic Back pain laterality: bilateral Sciatica presence: unspecified whether sciatica present Qualified Code(s): M54.50 - Low back pain, unspecified; G89.29 - Other chronic pain Plan: Pain management referral Orders: Orders US arterial duplex LE BI 6 Months I73.9 - Peripheral vascular disease, unspecified Referrals Pain Management Referral G89.29 - Other chronic pain, M54.50 - Low back pain, unspecified Patient Instructions: - Start with planned physical therapy sessions to address musculoskeletal symptoms. - Expect a repeat ultrasound in six months for circulation evaluation. - Look out for communication from pain management for an appointment. - Call our office if leg pain worsens or if there are new concerns. - Await contact for the ultrasound scheduling in six-month months. Coding Level of Care Code Est Pt Level 4 (90271) Complex EM visit Add On G2211 Diagnoses Peripheral vascular disease I73.9 Chronic bilateral low back pain, unspecified whether sciatica present M54.50; G89.29 Back pain location: low back pain Chronicity: chronic Back pain laterality: bilateral Sciatica presence: unspecified whether sciatica present
[2025-01-10 10:20] VITALS: BMI 21.6
--- OUTSIDE RECORDS SUMMARY | 2025-01-10 12:03 | XMS_ITS ---
Author Organization [facility] Address [address] [place] [address] Care Team Providers Care Job Coach/Job Developer Name Role Phone Neiad DUNAWAY, Linda Primary Care Provider Hank Corral [phone] REASON FOR VISIT erosive esophagitis Encounters Encounter Location Date Provider Diagnosis [facility] [address] [place] [id number] 11/16/2023 Hank Stanford Other specified di sease [...] GRAHAM MCINTOSH TDOB: [birth year] (49 yo M)Acc No.[id number]:11/16/2023 EGD/MAC Patient:?GRAHAM MCINTOSH Provider:?Hank Stanford MD :1975???Age:48 Y???Sex:Male Irwin e:11/16/2023 Address:[address] [place], [place] [id number] Pcp:Linda Carrasquillo NP Subjective: * Chief Complaints: * ???1. Erosive esophagitis. * Medical History:? Objective: * Vitals:? Assessment: * Assessment: 1.?Other specified disease o f esophagus - K22.89 (Primary)???2.?Gastritis - K29.70???3.?Hiatal hernia - K44.9???4.?Erosive esophagitis - K22.10??? Plan: * Treatment: * Procedure Codes:?96736 UPPER GI ENDOSCOPY, BIOPSY * * The named appointment provid er may or may not be the originator of this progress note, and it is not deemed complete until electronically signed by the appointment provider. Sign off status: Pending * Provider:?Hank Stanford MD Date:? 024 Generated for Rahel lieberman/Chema/Addiitting on:?01/10/2025 12:03 PM EDT
--- OUTSIDE RECORDS SUMMARY | 2025-01-10 12:03 | XMS_ITS | Patient Health Record ---
Author Organization [facility] Address [address] [place] [address] Care Team Providers Care Lumber Checker Name Role Phone Neida DUNAWAY, Linda Primary Care Provider Hank Corral [phone] Allergies Allergen (clinical drug ingredient) Drug/Non Drug Allergy documented on EMR Reaction Allergy Type Onset Date Status hydroxyzine Vistaril Unknown Drug Allergy Activ e quetiapine SEROquel Unknown Drug Allergy Active Results Component Value Reference Range Notes Pathology Reviewed date:02/05/2024 03:29:18 PM Interpretation: Performing Lab:[facility], [address] [place] [id number] Notes/Report: Name: Graham Mcintosh Age/Sex: 48/M : 1975 Unit#: [id number] Attend Dr: Rahul Marina MD Re02/02/24 Status : ADM IN Location: [place] [address] Disch: SPEC : [id number] RECD : 02/04/24 STATUS: APRIL FORTE NUM: [id number] TODD: 02/04/24-1345 [facility] DR: Hank Stanford ENTERED: 02/04/24 19 SP [...] on A. Copies To: Sergo Castro MD [address] [place] [phone] [email or web address] Hank Stanford [address] [place] [address] [id number] [place] Prieto [id number] Signed (si gnature on file) Candice Chavez [...] 2013; uses medical marijuana from dispensary in [place] for apetitie stimulant, anxiety/depression, and pain relief. Smokes 2 cigs QD Recovering alcoholic--heavy until 2009--reports occ. lapses, but last time was 2014; substance abuse with previous IVDA-none since 2014; uses medical marijuana from dispensary in [place] for apetitie stimulant, anxiety/depression, and pain relief. Smokes 2 cigs QD. Recovering alcoholic--heavy until 2009--reports occ. lapses, but last time was 2014; substance abuse with previous IVDA-none since 2014; uses medical marijuana from dispensary in [place] for apetitie stimulant, anxiety/depression, and pain relief. Smokes 2 cigs QD. Problems Problem Type SNOMED Code ICD Code Onset Dates Problem Status W/U Status Risk Notes Problem 646073384 Colon cancer screening (Z12.11) Active confirmed Problem Diverticular disease of colon (877117936) Diverticulosis of large intestine without perforation or abscess without bleeding (K57.30) Active confirmed Problem 872572860 Elevated liver function tests (R79.89) Active confirmed Problem Chronic gastritis (3630942) Gastritis, chronic (K29.50) Active confirmed Problem 69484828 Erosive esophagitis (K22.10) Active confirmed Problem Gastritis (3349757) Gastritis (K29.70) Active confirmed Problem 937629251 Abnormal CT scan , esophagus (R93.3) Active confirmed Problem 117788019 Idiopathic acute pancreatitis without infection or necrosis (K85.00) Active confirmed Problem Gastroesophageal reflux disease with esophagitis (disorder) (077124461) Gastro-esophageal reflux disease with esophagitis, without bleeding (K21.00) Active confirmed Encounters Encounter Location Date Provider Diagnosis [facility] [place] [address] [place] [id number] 02/04/2024 Hank Stanford Plan Of Treatment Pending [...] Medicaid [address] [place] [id number] GRAHAM MCINTOSH Self - patient is the insured MEDICAID OF [facility] [address] [place] [address] [id number] GRAHAM MCINTOSH Self - patient is the insured Medical (General) History Medical History History ICD Code IDDM--has an Insulin pump Denies DC,CVA,Lung disease,renal disease Anxiety/Depression/PTSD Arthritis Substance and alcohol [...] History Surgery Date(Month/Year) Hernia repair as an infant
--- OUTSIDE RECORDS SUMMARY | 2025-01-10 12:03 | XMS_ITS | Encounter Summary ---
Author Organization [facility] Address [address] [place] [address] Phone Care Team Providers Care Physical Therapy Manager Name Role Phone Niru Crawford Primary Care Provider [phone] Encounter Details Date Type Department Care Team (Late st Contact Info) Description 09/30/2023 Documentation Only [facility] [address] [place] [phone] Linda Carrasquillo NP Social History Tobacco Use [...] Visit [facility] [address] [place] [address] Juan Yee MD [address] [place] [address] [place] [phone] documented as of this encounter Visit Diagnoses Not on filedocumented in this encounter Care Teams Physical Therapy Manager Relationship Specialty Start Date End Date Niru Crawford [address] [place] [address] PCP - General 11/08/24 documented as of this encounter
--- OUTSIDE RECORDS SUMMARY | 2025-01-10 12:04 | XMS_ITS ---
Author Organization [facility] Address [address] [place] [address] Care Team Providers Care Web Knitter Name Role Phone Neida DUNAWAY, Linda Primary Care Provider Hank Corral [phone] Allergies Allergen (clinical drug ingredient) Drug/Non Drug [...] 2014; uses medical marijuana from dispensary in [place] for apetitie stimulant, anxiety/depression, and pain relief. Smokes 2 cigs QD. Problems Problem Type SNOMED Code ICD Code Onset Dates Problem Status W/U Status Risk Notes Problem 86812385 Erosive esophagitis (K22.10) Active confirmed Vital Signs Temperature 96.4 degrees Fahrenheit 08/27/20 23 Blood pressure systolic 00 mm Hg 08/27/20 23 Blood pressure diastolic 00 mm Hg 023 Height 71 in 08/27/2023 Weight 155 lbs 08/27/2023 BMI 21.62 kg/m2 08/27/2023 Encounters Encounter Location Date Provider Diagnosis [facility] [address] [place] [address] 08/27/2023 Hank Stanford Erosive esophagitis K22.10 Assessments [...] GRAHAM MCINTOSH TDOB: [birth year] (47 yo M)Acc No.[id number]:08/27/2023 Progress Notes Patient:?GRAHAM MCINTOSH T Provider:?Hank Stanford MD :1975???Age:47 Y???Sex:Male Irwin e:08/27/2023 Address:[address] [place], [place] [id number] Pcp:Linda Carrasquillo NP Subjective: * Chief Complaints: [...] * Surgical History:?Hernia rep air as an * Hospitalization/Major Diagno stic Procedure:?No Hospitalization History. [...] in the past year??No,?Points?0,?Interpretation?Negative.?Miscellaneous:?Marital status: . Occupation: [employer]. ???Recovering alcoholic--heavy until 2009--reports occ. lapses, but last time was 2014; substance abuse with previous IVDA-none since 2014; uses medical marijuana from dispensary in [place] for apetitie stimulant, anxiety/depression, and pain relief. [...] Procedure Codes:?3017F COLOR ECTAL CA SCREEN DOC [id number] BP SCR NOT PRFRM REC REASON [id number] Pt scrn tbco and id as user * Follow Up:?prn * * Sign off status: Completed true * Provider:?Hank Stanford MD Date:? 023 Generated for Rahel lieberman/Chema/eTyolandasmitting on:?01/10/2025 12:03 PM EDT History and Physical Notes * [...]
--- OUTSIDE RECORDS SUMMARY | 2025-01-10 12:04 | XMS_ITS ---
Author Organization [facility] Address [address] [place] [id number] Care Team Providers Care Dance Teacher Name Role Phone Neida DUNAWAY, Linda Primary Care Provider Hank Corral [phone] Problems Problem Type SNOMED Code ICD Code Onset Dates Problem Status W/U Status Risk Notes Problem Chronic gastritis (6085781) Gastritis, chronic (K29.50) Active confirmed Encounters Encounter Location Date Provider Diagnosis [facility] Outpatient [address] [place] [id number] 02/04/2024 Hank Stanford Plan Of Treatment No Information Progress Notes * GRAHAM MCINTOSH TDOB: [birth year] (49 yo M)Acc No.[id number]:02/04/2024 EGD/MAC Patient:?GRAHAM MCINTOSH Provider:?Hank Stanford MD :1975???Age:48 Y???Sex:Male Irwin e:02/04/2024 Address:[address] [place], [place] [id number] Pcp:Linda Carrasquillo NP Subjective: * Chief Complaints: [...] MD Date:? 024 Generated for Dailyi mio/Faxing/eTransmitting on:?01/10/2025 12:03 PM EDT
--- OUTSIDE RECORDS SUMMARY | 2025-01-10 12:04 | XMS_ITS | Clinical Summary ---
Author Organization [facility], Address [address] [place] [address] [place] [address] Phone Care Team Providers Care Industrial Staff Nurse Name Role Phone Niru Crawford Primary Care Provider [phone] Allergies Active Allergy Reactions Criticality Noted Date [...] Visit [facility], [address] [place] [place] [address] Juan Yee MD Proteinuria, not otherwise specified (Primary Dx) 11/04/2024 Telephone [facility], [address] [place] [place] [address] Shalini Hooper MA from Last 3 Months Immunizations Name Administration [...] Visit [facility] [address] [place] [phone] Juan Yee MD [address] [place] [address] [place] [address] Health Maintenance Due Date Last [...] 07/20/2024, , 08/09/2022, Additional history exists [place] [address] [address] Care Teams Industrial Staff Nurse Relationship Specialty Start Date End Date Niru Crawford [address] [place] [address] PCP - General 11/08/24
== END 2025-01-10 10:46 | disposition home or self-care (01) ==
LOC: HO.HVS 10:17
PROVIDERS: Visit Provider Surgery Vascular Surgery
DX: I73.9 Peripheral vascular disease, unspecified (principal); M54.50 Low back pain, unspecified; G89.29 Other chronic pain
CPT/HCPCS: 99214; G2211

== ENCOUNTER → 2025-01-10 10:17 | Outpatient (BNVA) | payer MEDICAID, SELFPAY | PROVIDERS: Visit Provider Surgery Vascular Surgery | DX: I73.9 Peripheral vascular disease, unspecified (principal); M54.50 Low back pain, unspecified; G89.29 Other chronic pain | CPT/HCPCS: 99212 ==

== ENCOUNTER 2025-01-16 09:00 | Inpatient (IN) | payer MEDICAID, SELFPAY ==
--- NOTE | 2025-01-16 | ECG_ITS ---
Test Reason : VOMITING Blood Pressure : */* mmHG Vent. Rate : 91 BPM Atrial Rate : 91 BPM P-R Int : 160 ms QRS Dur : 92 ms QT Int : 400 ms P-R-T Axes : 84 70 69 degrees QTcB Int : 492 ms Normal sinus rhythm Prolonged QT Abnormal ECG When compared with ECG of 29-Dec-2024 13:04, No significant change was found Referred By: Taiwo Montejo Electronically Signed By: Enrrique Noel
--- NOTE | ~2025-01-16 | CT_ITS ---
EXAMINATION: CT ABDOMEN AND PELVIS WITH CONTRAST CLINICAL INFORMATION: Abdominal pain. Nausea. Vomiting. COMPARISON: December 29, 2024. TECHNIQUE: Multidetector volumetric images were obtained from the superior aspect of the liver through the pubic symphysis following administration 85 mL of Omnipaque 350 intravenous contrast. Sagittal and coronal reformatted images were obtained on the technologist's workstation. Oral contrast: No This CT examination was performed using dose optimization techniques as appropriate, variously including the following: *Automated exposure control *Adjustment of mA and/or kV according to patient size (this includes techniques or standardized protocols for targeted exams where dose is matched to indication/reason for exam; i.e. extremities or head) *Use of iterative reconstruction technique DLP: 378 mGy centimeter. FINDINGS: LUNG BASES: No acute airspace disease. LIVER, GALLBLADDER, AND BILIARY TREE: Liver measures 21 cm. No focal mass. Portal veins, hepatic veins and intrahepatic portion of the IVC are patent. No pericholecystic fluid collection or gallbladder wall thickening. No intrahepatic or extrahepatic biliary ductal dilatation. PANCREAS: No focal mass. Reduced volume of the pancreatic parenchyma. No main pancreatic ductal dilatation. No peripancreatic fluid collection. SPLEEN: 9 cm. No focal lesion. ADRENAL GLANDS: No nodular lesion. KIDNEYS AND URETERS: No hydronephrosis. No gross nephrolithiasis. 1 cm cyst at parapelvic left kidney. BLADDER: Wall thickening. Collapsed. GASTROINTESTINAL TRACT: Concentric wall thickening distal esophagus. Concentric wall thickening involving distal ileal lobes and large intestine with narrowed lumen/collapsed appearance of the large intestine. No pericolonic edema pattern. No pneumatosis intestinalis. No intestinal obstruction pattern. No pneumoperitoneum. No ascites. Appendix is normal. ABDOMINAL WALL: No gross umbilical hernia. LYMPH NODES: Prominent less than 1 cm lymph nodes in the retroperitoneum, periaortic, florecita hepatic. VASCULAR: Mixed plaques throughout the abdominal aorta wall and iliac arteries without aneurysm section. Calcified plaques in the coronary arteries. PELVIC VISCERA: Punctate calcifications in the nonenlarged prostate gland. OSSEOUS STRUCTURES: Spondylolysis pars interarticularis, L5-S1. No gross listhesis. Degenerative changes in the coxofemoral joints. Dextroconvex curvature of the thoracolumbar junction. CT/CT abdomen pelvis w IV con IMPRESSION: Acute enterocolitis and esophagitis in the correct clinical settings. Hepatomegaly and questionable hepatocellular disease. Atherosclerosis disease. Simple cyst, left kidney. 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 Questionable inflammatory process in the bladder. Fleischner guidelines were followed. Electronically signed by: Jeffry Royal MD 01/16/2025 11:22 AM EDT
[2025-01-16 09:06] VITALS: BP 148/78; PULSE 109; RESP 20; TEMP 36.6; O2SAT 99; BMI 22.3
--- NOTE | 2025-01-16 09:22 | ED_ITS ---
HPI - General Adult General Chief complaint: Back Pain/Injury Stated complaint: back spasm and vomiting dehydration Time Seen by Provider: 01/16/25 09:21 Source: patient Mode of arrival: ambulatory Limitations: no limitations History of Present Illness ED Provider: Keli Chavez PA-C HPI narrative: Patient is a 49 year old assigned male at with a history of PVD, HTN, tobacco use, marijuana use, cocaine use, depression, pancreatitis, GERD, and type 1 DM, presenting to the emergency department today with nausea, vomiting, abdominal cramping, and back spasms. Patient states that starting yesterday he began to have nausea, vomiting, and worsening back spasms. Patient denies any dizziness, lightheadedness, fever, chills, blurry vision, double vision, loss of vision, chest pain, difficulty breathing, shortness of breath, night sweats, pain with urination, increased urinary frequency, increased urinary urgency, blood in his urine or stool, syncope or a near syncopal episode, recent trauma or falls, bowel incontinence, bladder incontinence, or any other complaints at this time. Onset (ago): day(s) (1) Location: back Relieving factors: none Exacerbating factors: none Associated symptoms: nausea/vomiting Treatments prior to arrival: none Related Data Home Medications ?Medication ?Instructions ?Recorded ?Confirmed clonazepam 0.5 mg tablet 0.5 mg PO BEDTIME PRN Anxiety 07/16/21 01/16/25 albuterol sulfate 90 mcg/actuation 2 puff inhalation Q4H PRN 12/29/24 01/16/25 aerosol inhaler (Ventolin HFA) Respiratory Distress fluticasone 250 mcg-salmeterol 50 1 inh inhalation BID 12/29/24 01/16/25 mcg/dose blistr powdr for inhalation (Advair Diskus) subcutaneous insulin pump (Tandem 12/29/24 12/29/24 Mobi System) cholecalciferol (vitamin D3) 25 25 mcg PO DAILY 01/16/25 01/16/25 mcg (1,000 unit) tablet clonidine HCl 0.1 mg tablet 0.1 mg PO DAILY PRN Anxiety 01/16/25 01/16/25 cyanocobalamin (vitamin B-12) 1,000 mcg PO DAILY 01/16/25 01/16/25 1,000 mcg tablet (Vitamin B-12) glucagon 3 mg/actuation nasal 3 mg intranasal DAILY PRN 01/16/25 01/16/25 spray (Baqsimi) Hypoglycemia insulin lispro 100 unit/mL 10 - 35 unit subcut DAILY 01/16/25 01/16/25 subcutaneous solution vitamin B complex 1 tab PO DAILY 01/16/25 01/16/25 Previous Rx's ?Medication ?Instructions ?Recorded insulin syringe-needle U-100 0.3 #150 ea 08/29/20 mL 29 gauge x 1/2 (BD Insulin Syringe) pen needle, diabetic 32 gauge x #50 ea 08/29/20/32 (BD Felisha 2nd Gen Pen Needle) 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 meter (FreeStyle #1 ea 10/22/22 Lite Meter kit) blood sugar diagnostic (FreeStyle #300 ea 02/19/23 Lite Strips) lancets 28 gauge (FreeStyle #100 ea 02/19/23 Lancets) omeprazole 40 mg capsule,delayed 40 mg PO BID@0630,1630 #180 caps 02/06/24 release acetone (urine) test (Ketone Urine #25 ea 11/02/24 Test strips) cyclobenzaprine 5 mg tablet 5 mg PO TID PRN muscle spasm #30 01/01/25 tabs Allergies Allergy/AdvReac Type Severity Reaction Status Date / Time hydroxyzine [From VISTARIL] Allergy Intermediate RASH, Verified 01/16/25 09:09 ANXIOUS quetiapine [Seroquel] AdvReac Intermediate Unknown Verified 01/16/25 09:09 Review of Systems 2 Constitutional: Constitutional: Reports no additional constitutional complaints, Denies chills, Denies fever(s) and Denies night sweats Eyes: Eyes: Reports no additional eye complaints, Denies blurry vision, Denies change in vision, Denies diplopia, Denies eye discharge, Denies loss of vision and Denies eye pain ENT: Denies dizziness Cardiovascular: Cardiovascular: Reports no additional cardiovascular complaints, Denies chest pain, Denies lightheadedness, Denies Loss of Consciousness and Denies dyspnea Respiratory: Respiratory: Reports no additional respiratory complaints and Denies dyspnea Gastrointestinal: Gastrointestinal: Reports no additional gastrointestinal complaints, Reports abdominal pain, Denies melena, Denies hematochezia, Denies change in bowel habits, Denies change in stool character, Reports nausea and Reports vomiting Genitourinary: Genitourinary: Reports no additional male genitourinary complaints, Denies hematuria, Denies oliguria, Denies difficulty urinating, Denies dysuria, Denies urinary frequency, Denies urinary hesitancy, Denies urinary incontinence and Denies urinary urgency Musculoskeletal: Musculoskeletal: Reports no additional musculoskeletal complaints, Reports back pain, Denies numbness and Denies tingling Neurologic: Denies dizziness, Denies loss of vision, Denies numbness and Denies tingling Psychiatric: Psychiatric: Reports no additional psychiatric complaints Endocrine: Endocrine: Reports no additional endocrine complaints Hematologic/Lymphatic: Hematologic/Lymphatic: Reports no additional hematologic/lymphatic complaints Allergic/Immunologic: Allergic/Immunologic: Reports no additional allergic/immunologic complaints [facility] Past Medical History Attestation statement: The following information was validated with the patient. 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 Mother No problems noted. Social History Social History Household Members: Family Household Members Other:: mother Housing: House Do you presently have visiting nurse or other home services: No Alcohol intake: former Patient Tobacco Use Status: Current everyday Tobacco user Tobacco use type: Cigarette Cigarettes Per Day: 3 Years Smoked: 33 e-Cigarette/Vaping Use: Currently Using Substance Use Type: Marijuana Advance Directives: Yes Advance Directives on File: Yes Advance Directives Date on File: 08/29/20 Do you have a plan to hurt others: No Plan service: No Current occupational status: unemployed Physical Exam ED Vital Signs: Vital Signs - 24 hr 01/16/25 09:06 Temperature 97.9 F Pulse Rate 109 H Respiratory Rate 20 Blood Pressure 148/78 H Pulse Oximetry 99 BMI result Body Mass Index 22.3 Const General: cooperative, no acute distress, alert and awake Nutritional Appearance: well nourished Orientation/consciousness: patient oriented x3 Limitations: no limitations HENMT Head: Yes normal to inspection and Yes atraumatic Ears: hearing grossly normal bilaterally and external ears normal General nose exam: Normal external nose present, no nasal discharge noted and no epistaxis Face and sinus: Yes normal facial exam, No abrasion and No laceration Mouth: Normal oral and palatal mucosa present, no drooling and no muffled voice Eyes General: appearance normal, both eyes and all related structures Periorbital: periorbital findings normal Eyelids: Yes eyelids normal Conjunctivae: conjunctivae normal Pupils: Equal, round and reactive pupils present EOM: EOMs intact bilaterally Neck Neck: Yes normal visual inspection, Yes full ROM and Yes no lymphadenopathy Chest Chest palpation & inspection: normal inspection of the chest Resp Effort & Inspection: normal respiratory effort and able to speak in complete sentences GI Inspection: Yes normal to inspection Palpation (GI): Soft to palpation, not firm, Tenderness to palpation present (GI), no guarding and not rigid Neuro General: patient oriented x3, moves all extremities and CN's II-XI intact bilaterally Cranial nerves: Yes Equal, round and reactive pupils present Cognition (Neuro): normal cognition Extrem General: Yes normal to inspection, Yes full ROM and Yes capillary refill normal Psych Appearance: grossly normal Mental Status: mental status grossly normal Affect: normal affect Attitude: cooperative Thought process: Normal thought process present Thought content: Normal thought content present Insight: Good insight present (Psych) Medications Administered Discontinued Medications Generic Name Dose Route Start Last Admin Trade Name Ethel PRN Reason Stop Dose Admin Ceftriaxone Sodium 1 gm 01/16/25 11:34 01/16/25 12:11 Ceftriaxone Sodium 1 Gm Vial IVPUSH 01/16/25 11:35 1 gm ONCE ONE Administration Diazepam 5 mg 01/16/25 09:29 01/16/25 10:21 Diazepam 10 Mg/2 Ml Cartridge IVPUSH 01/16/25 09:30 5 mg STAT STA Administration Magnesium Sulfate 2 gm in 50 mls @ 25 mls/hr 01/16/25 10:12 01/16/25 10:21 Magnesium Sulfate/H2o IV 01/16/25 12:11 25 mls/hr ONCE ONE Administration Sodium Chloride 1,000 mls @ 999 mls/hr 01/16/25 11:45 01/16/25 12:18 Ns IV 01/16/25 12:45 999 mls/hr .Q1H1M ASHLEIGH Administration Metronidazole 500 mg in 100 mls @ 100 mls/hr 01/16/25 11:34 01/16/25 13:42 Flagyl IV 01/16/25 12:33 100 mls/hr ONCE ONE Administration Iohexol 100 ml 01/16/25 10:45 01/16/25 10:46 Iohexol 350 Mg/Ml 100 Ml Infus..Btl IV 01/16/25 10:46 85 ml ONCE ONE Administration Metoclopramide HCl 10 mg 01/16/25 11:42 01/16/25 12:11 Metoclopramide Hcl 10 Mg/2 Ml Vial IVPUSH 01/16/25 11:43 10 mg ONCE ONE Administration Morphine Sulfate 4 mg 01/16/25 11:34 01/16/25 12:10 Morphine Sulfate 4 Mg/Ml Cartridge IVPUSH 01/16/25 11:35 4 mg ONCE ONE Administration Protocol Ondansetron HCl 4 mg 01/16/25 09:29 01/16/25 10:21 Ondansetron Hcl 4 Mg/2 Ml Vial IVPUSH 01/16/25 09:30 4 mg ONCE ONE Administration Pantoprazole Sodium 40 mg 01/16/25 11:35 01/16/25 12:11 Pantoprazole Sodium 40 Mg/10 Ml Vial IVPUSH 01/16/25 11:36 40 mg ONCE ONE Administration Medical Decision Making Medical Decision Making MDM Narrative: Patient is a 49 year old assigned male at with a history of PVD, HTN, tobacco use, marijuana use, cocaine use, depression, pancreatitis, GERD, and type 1 DM, presenting to the emergency department today with nausea, vomiting, abdominal cramping, and back spasms. Patient's physical exam was as noted in the physical exam portion of this note. Patient's blood work showed a decreased magnesium for which he was repleated. Patient's urine showed no acute process. Patient's CT abdomen/pelvis showed colitis and esophagitis. Patient was given anti-emetic and pain medication but continued to have pain with nausea and vomiting, unable to tolerate PO intake. Patient was given Zofran, Reglan, magnesium, valium, moprhine, flagyl, and ceftriaxone. Patient's clinical presentation is not consistent with sepsis (@1130). I spoke with the hospitalist team who agreed to admission for continued emetic and pain management. I explained my physical exam findings as well as all test results to the patient. I answered all questions asked by the patient. Patient verbalized agreement and understanding with this treatment plan and admission. Differential Diagnosis Differential Diagnoses: The differential diagnosis associated with the presentation includes Nausea Vomiting Gastroenteritis Enterocolitis Esophagitis Admission/Observation Consideration of admission/observation: Escalation of care including admission/observation considered Patient admitted as noted in the MDM Rationale portion of this note. Consult Healthcare Provider Management of the patient was discussed with: Hospitalist (agreed to admission as noted in the MDM Rationale portion of this note. ) Lab Data [facility] Lab Attestation statement: I reviewed the patient's lab results. My interpretation of these results are in the MDM Rationale portion of this note. 01/16/25 09:21 01/16/25 09:21 Labs: Lab Results 01/16/25 01/16/25 01/16/25 Range/Units 09:21 10:08 11:54 WBC 8.8 (4.8-10.8) X10*3/uL RBC 4.03 L (4.60-5.80) X10*6/uL Hgb 14.6 (14.0-18.0) g/dl Hct 40.1 L (42.0-52.0) % MCV 99.5 H (80.0-98.0) fL MCH 36.2 H (27.0-33.0) pg MCHC 36.4 H (31.0-36.0) g/dl RDW 13.0 (11.0-16.0) % Plt Count 222 D (160-400) X10*3/uL MPV 9.6 (9.4-12.4) fL Immature Gran % (Auto) 0.3 (0.0-0.4) % Neut % (Auto) 82.6 H (45-73) % Lymph % (Auto) 11.2 L (20-40) % Stephens % (Auto) 5.6 (2-11) % Eos % (Auto) 0.0 (0-4) % Baso % (Auto) 0.3 (0-2) % Lymph # (Auto) 1.0 L (1.2-4.9) X10*3/uL Stephens # (Auto) 0.5 (0.1-1.2) X10*3/uL Eos # (Auto) 0.0 (0.0-0.4) X10*3/uL Baso # (Auto) 0.0 (0.0-0.2) X10*3/uL Abs Immat Gran (auto) 0.03 (0.00-0.03) X10*3/uL Absolute Neuts (auto) 7.2 (2.0-8.3) x10*3/uL Absolute Nucleated RBC 0.000 (0.0-0.012) X10*3/uL Nucleated RBC % (auto) 0.0 (0.0-0.2) /100WBC Sodium 147 H (135-145) mmol/L Potassium 3.4 (3.3-5.1) mmol/L Chloride 95 L (96-108) mmol/L Carbon Dioxide 39 H (22-29) mmol/L Anion Gap 16 (12-20) BUN 15 (9-16) mg/dL Creatinine 1.35 (0.5-1.4) mg/dL Estim Creat Clear Calc 67.1 Estimated GFR 56 Random Glucose 286 H (60-115) mg/dL Lactic Acid 1.8 (0.5-2.0) mmol/L Calcium 9.6 D (8.4-10.2) mg/dL Magnesium 1.4 L* (1.6-2.6) mg/dL Total Bilirubin 0.8 (0.0-1.0) mg/dL AST 63 H (5-37) U/L ALT 38 (0-40) U/L Alkaline Phosphatase 150 H (39-117) U/L Total Protein 6.8 (6.5-8.0) g/dL Albumin 4.0 (3.5-5.0) g/dL Lipase 10 (8-78) U/L Beta-Hydroxybutyrate 0.70 H (0.02-0.27) mmol/L Urine Color Yellow Urine Appearance Clear Urine pH >= 9.0 (5.0-9.0) Ur Specific [place] 1.020 (1.005-1.025) Urine Protein 300 (3+) H (Neg-Trace) mg/dL Urine Glucose (UA) 100 H (Negative) mg/dL Urine Ketones 15 (Negative) mg/dL Urine Blood Small (1+) H (Negative) Urine Nitrite Negative (Negative) Ur Leukocyte Esterase Negative (Negative) Urine RBC >20 H (0-2) /HPF Urine WBC 0-5 (0-5) /HPF Ur Squamous Epith Cells 0-2 (0-2) /HPF Urine Bacteria None Seen (None Seen) Hyaline Casts 0-2 (0-2) /LPF Urine Opiates Screen Not Detected (Not Detect) Ur Buprenorphine Scrn Not Detected (Not Detect) ng/mL Ur Oxycodone Screen Not Detected (Not Detect) ng/mL Urine Methadone Screen Not Detected (Not Detect) ng/mL Urine Fentanyl Screen Not Detected (Not Detect) Ur Barbiturates Screen Not Detected (Not Detect) Ur Phencyclidine Scrn Not Detected (Not Detect) Ur Amphetamines Screen Not Detected (Not Detect) U Benzodiazepines Scrn Not Detected (Not Detect) Urine Cocaine Screen POSITIVE H (Not Detect) U Marijuana (THC) Screen POSITIVE H (Not Detect) Influenza Type A (PCR) NEGATIVE (Negative) Influenza Type B (PCR) NEGATIVE (Negative) RSV RNA Qual (PCR) NEGATIVE (Negative) SARS-CoV-2 RNA (RT-PCR) NEGATIVE (Negative) Independent Interpretation I performed an independent interpretation of an: CT Scan Interpretation: My interpretation is in agreement with the radiologist's impression of this imaging study. L Report Number: [id number]: Total DLP = 378.00 mGy-cm EXAMINATION: CT ABDOMEN AND PELVIS WITH CONTRAST CLINICAL INFORMATION: Abdominal pain. Nausea. Vomiting. COMPARISON: December 29, 2024. TECHNIQUE: Multidetector volumetric images were obtained from the superior aspect of the liver through the pubic symphysis following administration 85 mL of Omnipaque 350 intravenous contrast. Sagittal and coronal reformatted images were obtained on the technologist's workstation. Oral contrast: No This CT examination was performed using dose optimization techniques as appropriate, variously including the following: *Automated exposure control *Adjustment of mA and/or kV according to patient size (this includes techniques or standardized protocols for targeted exams where dose is matched to indication/reason for exam; i.e. extremities or head) *Use of iterative reconstruction technique DLP: 378 mGy centimeter. FINDINGS: LUNG BASES: No acute airspace disease. LIVER, GALLBLADDER, AND BILIARY TREE: Liver measures 21 cm. No focal mass. Portal veins, hepatic veins and intrahepatic portion of the IVC are patent. No pericholecystic fluid collection or gallbladder wall thickening. No intrahepatic or extrahepatic biliary ductal dilatation. PANCREAS: No focal mass. Reduced volume of the pancreatic parenchyma. No main pancreatic ductal dilatation. No peripancreatic fluid collection. SPLEEN: 9 cm. No focal lesion. ADRENAL GLANDS: No nodular lesion. KIDNEYS AND URETERS: No hydronephrosis. No gross nephrolithiasis. 1 cm cyst at parapelvic left kidney. BLADDER: Wall thickening. Collapsed. GASTROINTESTINAL TRACT: Concentric wall thickening distal esophagus. Concentric wall thickening involving distal ileal lobes and large intestine with narrowed lumen/collapsed appearance of the large intestine. No pericolonic edema pattern. No pneumatosis intestinalis. No intestinal obstruction pattern. No pneumoperitoneum. No ascites. Appendix is normal. ABDOMINAL WALL: No gross umbilical hernia. LYMPH NODES: Prominent less than 1 cm lymph nodes in the retroperitoneum, periaortic, florecita hepatic. VASCULAR: Mixed plaques throughout the abdominal aorta wall and iliac arteries without aneurysm section. Calcified plaques in the coronary arteries. PELVIC VISCERA: Punctate calcifications in the nonenlarged prostate gland. OSSEOUS STRUCTURES: Spondylolysis pars interarticularis, L5-S1. No gross listhesis. Degenerative changes in the coxofemoral joints. Dextroconvex curvature of the thoracolumbar junction. CT/CT abdomen pelvis w IV con IMPRESSION: Acute enterocolitis and esophagitis in the correct clinical settings. Hepatomegaly and questionable hepatocellular disease. Atherosclerosis disease. Simple cyst, left kidney. 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 Questionable inflammatory process in the bladder. Fleischner guidelines were followed. Electronically signed by: Jeffry Royal MD 01/16/2025 11:22 AM EDT Dictated By: Jeffry Benitez MD Signed By: Electronically signed by Jeffry Mckeon MD 01/16/25 1122 Radiology Impression Discussion of test interpretation with radiology: I have reviewed the radiologist's reading. Critical Care Time Critical Care Time Critical Care Time: Yes Total Critical Care Time: 36 Attestation: I spent 36 minutes of Critical Care Time with this patient. This does not include time spent on separately reported billable procedures. Discharge Plan Discharge Clinical Impression: Abdominal pain, Back pain, Enterocolitis, Esophagitis, Nausea & vomiting Patient Disposition: Admitted As Inpatient
[2025-01-16 09:26] LABS: MANUAL DIFF FLAG NO
[2025-01-16 09:27] LABS: Basophils Percent Auto 0.3 % (0-2); Hematocrit 40.1 % (42.0-52.0); Hemoglobin 14.6 g/dl (14.0-18.0); Imm Gran Abs Auto 0.03 X10*3/uL (0.00-0.03); Imm Gran Pct Auto 0.3 % (0.0-0.4); Lymphocytes Percent Auto 11.2 % (20-40); Mean Corpuscular HGB Conc 36.4 g/dl (31.0-36.0); Mean Corpuscular Hemoglobin 36.2 pg (27.0-33.0); Mean Corpuscular Volume 99.5 fL (80.0-98.0); Mean Platelet Volume 9.6 fL (9.4-12.4); Monocytes Absolute Auto 0.5 X10*3/uL (0.1-1.2); Monocytes Percent Auto 5.6 % (2-11); Neutrophils Absolute Auto 7.2 x10*3/uL (2.0-8.3); Neutrophils Percent Auto 82.6 % (45-73); Platelet Count 222 X10*3/uL (160-400); Red Blood Count 4.03 X10*6/uL (4.60-5.80); White Blood Count 8.8 X10*3/uL (4.8-10.8)
[2025-01-16 10:10] LABS: Alanine Aminotransferase 38 U/L (0-40); Alkaline Phosphatase 150 U/L (39-117); Anion Gap 16 (12-20); Aspartate Amino Transferase 63 U/L (5-37); Bilirubin Total 0.8 mg/dL (0.0-1.0); Blood Urea Nitrogen 15 mg/dL (9-16); Calcium 9.6 mg/dL (8.4-10.2); Carbon Dioxide 39 mmol/L (22-29); Chloride 95 mmol/L (96-108); Creatinine Clr Calc Pharmacy 67.1; Estimated Glomerular Filt Rate 56; Glucose Random 286 mg/dL (60-115); Lipase 10 U/L (8-78); Magnesium 1.4 mg/dL (1.6-2.6); Potassium 3.4 mmol/L (3.3-5.1); Sodium 147 mmol/L (135-145); Total Protein 6.8 g/dL (6.5-8.0)
[2025-01-16] MEDS: Magnesium Sulfate/H2O 2 GM/50 ML PIGGYBACK IV (10:21)
[2025-01-16] MEDS: diazePAM 10 MG/2 ML CARTRIDGE 5 MG IVPUSH (10:21)
[2025-01-16] MEDS: ondansetron HCL 4 MG/2 ML VIAL IVPUSH (10:21)
[2025-01-16 10:22] LABS: Appearance Urine Clear; Color Urine Yellow; Glucose Urine UA 100 mg/dL (Negative); Leukocyte Esterase Urine Negative (Negative); Nitrite Urine Negative (Negative); PH >= 9.0 (5.0-9.0); UMIC TRIGGER UACC YES; Urine Blood Small (1+) (Negative); Urine Ketones 15 mg/dL (Negative); Urine Protein 300 (3+) mg/dL (Neg-Trace)
[2025-01-16 10:31] LABS: Bacteria Urine None Seen (None Seen); Hyaline Casts Urine 0-2 /LPF (0-2); RBC Urine >20 /HPF (0-2); Squamous Epithelial Cell Urine 0-2 /HPF (0-2); WBC Urine 0-5 /HPF (0-5)
[2025-01-16 10:32] LABS: Influenza A PCR NEGATIVE (Negative); Influenza B PCR NEGATIVE (Negative); Resp Syncy Virus RNA Qual PCR NEGATIVE (Negative); SARS COV2 PCR INHOUSE NEGATIVE (Negative)
[2025-01-16] MEDS: iohexoL 350 MG/ML 100 ML INFUS..BTL IV (10:46)
--- OUTSIDE RECORDS SUMMARY | 2025-01-16 10:53 | XMS_ITS ---
Author Organization [facility] Address [address] [place] [phone] Care Team Providers Care Structural Manager Name Role Phone Neida DUNAWAY, Linda Primary Care Provider Hank Corral [phone] REASON FOR VISIT erosive esophagitis Encounters Encounter Location Date Provider Diagnosis [facility] [place] [address] [place] [phone] 11/16/2023 Hank Stanford Other specified di sease [...] [place] TDOB: [birth year] (49 yo M)Acc No.[id number]:11/16/2023 EGD/MAC Patient:?[place] MC[place] Provider:?Hank Stanford MD :1975???Age:48 Y???Sex:Male Irwin e:11/16/2023 Address:[address] [place], [place] [id number] Pcp:Linda Carrasquillo NP Subjective: * Chief Complaints: * ???1. Erosive esophagitis. * Medical History:? Objective: * Vitals:? Assessment: * Assessment: 1.?Other specified disease o f esophagus - K22.89 (Primary)???2.?Gastritis - K29.70???3.?Hiatal hernia - K44.9???4.?Erosive esophagitis - K22.10??? Plan: * Treatment: * Procedure Codes:?38055 UPPER GI ENDOSCOPY, BIOPSY * * The named appointment provid er may or may not be the originator of this progress note, and it is not deemed complete until electronically signed by the appointment provider. Sign off status: Pending * Provider:?Hank [place] MD Date:? 024 Generated for Rahel lieberman/Chema/Addiitting on:?01/16/2025 10:53 AM EDT
--- OUTSIDE RECORDS SUMMARY | 2025-01-16 10:53 | XMS_ITS | Encounter Summary ---
Author Organization [facility] Address [address] [place] [address] Phone Care Team Providers Care Acoustical Material Worker Name Role Phone Niru [place] Primary Care Provider [phone] Encounter Details Date Type Department Care Team (Late st Contact Info) Description 09/30/2023 Documentation Only [facility] [address] [place] [phone] Linda Carrasquillo NP Social History Tobacco Use [...] [facility] [address] [place] [address] Juan Yee MD [address] [place] [address] [place] [phone] documented as of this encounter Visit Diagnoses Not on filedocumented in this encounter Care Teams Acoustical Material Worker Relationship Specialty Start Date End Date Niru Crawford [address] [facility] [place] [address] PCP - General 11/08/24 documented as of this encounter
--- OUTSIDE RECORDS SUMMARY | 2025-01-16 10:54 | XMS_ITS ---
Author Organization [facility] Address [address] [place] [phone] Care Team Providers Care Antisubmarine Weapons Officer Name Role Phone Neida DUNAWAY, Linda Primary Care Provider Hank Corral [phone] Problems Problem Type SNOMED Code ICD Code Onset Dates Problem Status W/U Status Risk Notes Problem Chronic gastritis (9943845) Gastritis, chronic (K29.50) Active confirmed Encounters Encounter Location Date Provider Diagnosis [facility] [place] Out[place] [address] [place] [phone] 02/04/2024 Hank Stanford Plan Of Treatment No Information Progress Notes * GRAHAM MCINTOSH TDOB: [birth year] (49 yo M)Acc No.[id number]:02/04/2024 EGD/MAC Patient:?G[place] MCINTOSH Provider:?Hank Stanford MD :1975???Age:48 Y???Sex:Male Irwin e:02/04/2024 Address:[address] [place], [place] [phone] Pcp:Linda Carrasquillo NP Subjective: * Chief Complaints: [...] MD Date:? 024 Generated for Dailyi mio/Faxing/eTransmitting on:?01/16/2025 10:53 AM EDT
--- OUTSIDE RECORDS SUMMARY | 2025-01-16 10:54 | XMS_ITS | Clinical Summary ---
Author Organization [facility], Address [address] [place] [address] [place] [address] Phone Care Team Providers Care Optical Brightener Maker Helper Name Role Phone Niru Crawford Primary Care Provider [phone] Allergies Active Allergy Reactions Criticality Noted Date [...] Visit [facility] [place], [address] [place] [place] [address] Juan Yee MD Proteinuria, not otherwise specified (Primary Dx) 11/04/2024 Telephone [facility] [place], [address] [place] [address] Shalini Hooper MA from Last 3 Months [...] Visit [facility] [address] [place] [phone] Juan Yee MD [address] [place] [address] [place] [address] Health Maintenance Due Date Last [...] 07/20/2024, , 08/09/2022, Additional history exists [place] [address] [address] Care Teams Optical Brightener Maker Helper Relationship Specialty Start Date End Date Niru Crawford [address] [place] [address] PCP - General 11/08/24
[2025-01-16 11:59] LABS: Amphetamine Screen Urine Not Detected (Not Detect); Barbiturates, Urine Not Detected (Not Detect); Benzodiazepines Screen Urine Not Detected (Not Detect); Buprenorphine Scr Not Detected (Not Detect); Cannabinoid Screen Urine POSITIVE (Not Detect); Cocaine Screen Urine POSITIVE (Not Detect); Fentanyl, urine Not Detected (Not Detect); Methadone Screen, Urine Not Detected (Not Detect); Opiate Screen Urine Not Detected (Not Detect); Oxycodone Screen Urine Not Detected (Not Detect); Phencyclidine Screen Urine Not Detected (Not Detect)
[2025-01-16] MEDS: Morphine Sulfate 4 MG/ML CARTRIDGE IVPUSH ×3 (12:10→20:20)
[2025-01-16] MEDS: Metoclopramide HCl 10 MG/2 ML VIAL IVPUSH (12:11)
[2025-01-16] MEDS: cefTRIAXone sodium 1 GM VIAL IVPUSH (12:11)
[2025-01-16] MEDS: Pantoprazole Sodium 40 MG/10 ML VIAL IVPUSH ×2 (12:11→16:59)
[2025-01-16] MEDS: 0.9 % Sodium Chloride 1,000 ML 999 ML IV (12:18)
[2025-01-16 12:32] LABS: Lactic Acid 1.8 mmol/L (0.5-2.0)
--- NOTE | 2025-01-16 12:50 | PM.IMHP ---
History of Present Illness Date of Service: 01/16/25 Chief Complaint: nausea/vomiting The patient is a 49-year-old male with a past medical history significant for type 1 diabetes, hypertension, cirrhosis, polysubstance use disorder, erosive esophagitis, chronic back pain, mood disorder see ED with a 1 day history of back spasms, abdominal pain, nausea and vomiting. The patient reports that he typically has chronic back spasms for which he is on cyclobenzaprine. Reports on the day prior to hospitalization his back spasms were not responding to his baseline medications. Subsequent to this the patient reported intractable nausea and vomiting. He reports an inability to even tolerate liquids. He states that subsequent to this he has diffuse abdominal crampy pain. Due to persistent symptoms, the patient presented for further eval. ED course: Work up: CT abd/pelvis: Enterocolitis and acute esophagitis along with other findings (see report for full details); Na 147, bicarb 39, Mg 1.4, AST 63, beta hydroxybutyrate 0.7; qtc 490 Treatment: IV rocephin/flagyl, IV morphine, IV zofran + IV reglan, IVF, IV magnesium Despite above treatment, pt with on going vomiting and abdominal pain, hence will be admitted for further care. Review of Systems Review of Systems: Negative except HPI/interval history. [facility] Medical History Peripheral vascular disease Elevated liver function tests Polysubstance abuse Osteoarthritis Type 1 diabetes History of drug abuse Depression Vitamin D deficiency Hypoglycemia unawareness associated with type 1 diabetes mellitus Diabetes type 1, uncontrolled Diabetes Family History Father No problems noted. Mother No problems noted. Surgical History History of esophagogastroduodenoscopy (EGD) H/O colonoscopy Hx of hernia repair Social History Household Members: Family Household Members Other:: mother Housing: House Do you presently have visiting nurse or other home services: No Alcohol intake: former Patient Tobacco Use Status: Current everyday Tobacco user Tobacco use type: Cigarette Cigarettes Per Day: 3 Years Smoked: 33 e-Cigarette/Vaping Use: Currently Using Substance Use Type: Marijuana Advance Directives: Yes Advance Directives on File: Yes Advance Directives Date on File: 08/29/20 Do you have a plan to hurt others: No Plan service: No Current occupational status: unemployed Meds Allergies Allergy/AdvReac Type Severity Reaction Status Date / Time hydroxyzine [From VISTARIL] Allergy Intermediate RASH, Verified 01/16/25 09:09 ANXIOUS quetiapine [Seroquel] AdvReac Intermediate Unknown Verified 01/16/25 09:09 Active Medications: Current Medications Acetaminophen (Acetaminophen 325 Mg Tablet) 650 mg PO Q6H PRN PRN Reason: Pain, Mild 1-3,fever,headache Calcium Carbonate (Calcium Carbonate 750 Mg Tab.Chew) 750 mg PO Q4H PRN PRN Reason: Heartburn Lactated Ringer's (Lr) 1,000 mls @ 100 mls/hr IVCONT .Q10H ASHLEIGH Stop: 01/17/25 08:44 Insulin Human Lispro (Insulin Lispro 100 Unit/Ml 3 Ml Vial) 0 [facility]; Protocol Magnesium Hydroxide (Milk Of Magnesia 30 Ml Oral.Susp) 30 ml PO DAILY PRN PRN Reason: Constipation Melatonin (Melatonin 3 Mg Tablet) 6 mg PO BEDTIME PRN PRN Reason: Insomnia Sodium Chloride (0.9 % Sodium Chloride Flush 3 Ml Syringe) 3 [facility] Home Medications ?Medication ?Instructions ?Recorded ?Confirmed ?Last Taken ?Type clonazepam 0.5 mg tablet 0.5 mg PO BEDTIME PRN Anxiety 07/16/21 01/16/25 01/31/24 History albuterol sulfate 90 mcg/actuation 2 puff inhalation Q4H PRN 12/29/24 01/16/25 Unknown History aerosol inhaler (Ventolin HFA) Respiratory Distress fluticasone 250 mcg-salmeterol 50 1 inh inhalation BID 12/29/24 01/16/25 01/16/25 History mcg/dose blistr powdr for inhalation (Advair Diskus) subcutaneous insulin pump (Tandem 12/29/24 12/29/24 Unknown History Mobi System) cholecalciferol (vitamin D3) 25 25 mcg PO DAILY 01/16/25 01/16/25 01/16/25 History mcg (1,000 unit) tablet clonidine HCl 0.1 mg tablet 0.1 mg PO DAILY PRN Anxiety 01/16/25 01/16/25 Unknown History cyanocobalamin (vitamin B-12) 1,000 mcg PO DAILY 01/16/25 01/16/25 01/16/25 History 1,000 mcg tablet (Vitamin B-12) glucagon 3 mg/actuation nasal 3 mg intranasal DAILY PRN 01/16/25 01/16/25 Unknown History spray (Baqsimi) Hypoglycemia insulin lispro 100 unit/mL 10 - 35 unit subcut DAILY 01/16/25 01/16/25 01/16/25 History subcutaneous solution vitamin B complex 1 tab PO DAILY 01/16/25 01/16/25 01/16/25 History Physical Exam Vital Signs and Narrative: Vital Signs: Last Vital Signs Temp 97.9 F 01/16/25 09:06 Pulse 109 H 01/16/25 09:06 Resp 20 01/16/25 09:06 BP 148/78 H 01/16/25 09:06 Pulse Ox 99 01/16/25 09:06 BMI result Body Mass Index 22.3 Const: Other: Constitutional - Awake and Alert, No apparent distress Eyes - PERRLA, EOMI Cardiovascular - S1S2, RRR, No edema Respiratory - Normal lung expansion, Normal respiratory effort, No respiratory distress, CTA bilaterally Gastrointestinal - epigastric TTP without rebound or guarding - No CVA tenderness Extremities - no calf tenderness bilaterally, no swelling Musculoskeletal - Normal inspection, normal ROM Skin - Warm/Dry Neurological - Alert & oriented x3, No focal deficit Psychological - Appropriate affect Results Labs 01/16/25 09:21 01/16/25 09:21 Labs: Laboratory Results - last 24 hr 01/16/25 01/16/25 01/16/25 09:21 10:08 11:54 MCV 99.5 H MCH 36.2 H MCHC 36.4 H RDW 13.0 Plt Count 222 D MPV 9.6 Immature Gran % (Auto) 0.3 Neut % (Auto) 82.6 H Lymph % (Auto) 11.2 L [place] % (Auto) 5.6 Eos % (Auto) 0.0 Baso % (Auto) 0.3 Lymph # (Auto) 1.0 L [place] # (Auto) 0.5 Eos # (Auto) 0.0 Baso # (Auto) 0.0 Abs Immat Gran (auto) 0.03 Absolute Neuts (auto) 7.2 Absolute Nucleated RBC 0.000 Nucleated RBC % (auto) 0.0 Anion Gap 16 Estim Creat Clear Calc 67.1 Estimated GFR 56 Random Glucose 286 H Lactic Acid 1.8 Calcium 9.6 D Magnesium 1.4 L* Total Bilirubin 0.8 AST 63 H ALT 38 Alkaline Phosphatase 150 H Total Protein 6.8 Albumin 4.0 Lipase 10 Beta-Hydroxybutyrate 0.70 H Urine Color Yellow Urine Appearance Clear Urine pH >= 9.0 Ur Specific [place] 1.020 Urine Protein 300 (3+) H Urine Glucose (UA) 100 H Urine Ketones 15 Urine Blood Small (1+) H Urine Nitrite Negative Ur Leukocyte Esterase Negative Urine RBC >20 H Urine WBC 0-5 Ur Squamous Epith Cells 0-2 Urine Bacteria None Seen Hyaline Casts 0-2 Urine Opiates Screen Not Detected Ur Buprenorphine Scrn Not Detected Ur Oxycodone Screen Not Detected Urine Methadone Screen Not Detected Urine Fentanyl Screen Not Detected Ur Barbiturates Screen Not Detected Ur Phencyclidine Scrn Not Detected Ur Amphetamines Screen Not Detected U Benzodiazepines Scrn Not Detected Urine Cocaine Screen POSITIVE H U Marijuana (THC) Screen POSITIVE H Influenza Type A (PCR) NEGATIVE Influenza Type B (PCR) NEGATIVE RSV RNA Qual (PCR) NEGATIVE SARS-CoV-2 RNA (RT-PCR) NEGATIVE Imaging Radiologist's Impressions: Impressions Abdomen/Pelvis CT 01/16/25 10:37 IMPRESSION: Acute enterocolitis and esophagitis in the correct clinical settings. Hepatomegaly and questionable hepatocellular disease. Atherosclerosis disease. Simple cyst, left kidney. 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 Questionable inflammatory process in the bladder. Fleischner guidelines were followed. Electronically signed by: Jeffry Royal MD 01/16/2025 11:22 AM EDT Assessment and Plan (1) Enterocolitis: Status: Resolved (2) Esophagitis: Status: Inactive Plan 49 yo M with recent hospitalization for esophagitis who presents to the ED with a 1 day history of intractable nausea/vomiting found to have esophatitis + entercolitis. Despite treatment in the ED, continues to be symtomatic with multiple issues and hence will be admitted for further care. 1. Acute nausea/vomiting/abdominal pain likely secondary to esophatitis + enterocolitis (likely viral) unable to tolerate PO despite treatment in the ED with multiple anti-emetics continue IVF, start IV PPI, clear liquids if he can tolerate Reports formed stool -- no need to test at this time if not improved, may need GI evaluation 2. HyperNa, HypoMg, contraction alkalosis mag repleted in the ED, will re-check with AM labs continue IVF and monitor BMP due to #1 3. DM with hyperglycemia beta-hydroxybuterate mildly elevated -- no gap or acidosis continue with fluids hold insulin pump, use sliding scale 4. Prolonged qtc likely due to electrolyte abnormalities will replete and re-check keep Mg>2; K>4 5. Mood continue baseline meds Full Code DVT pptx - lovenox Pt with esophagitis / entercolitis and associated GI losses resulting in electrolyte imbalance complicated by EKG changes, therefore expected to require a minimum of 2 midnights in the hospital for management and monitoring of response. Therefore, will be admitted as inpatient. Quality Stroke Does the patient have a stroke diagnosis?: No VTE Prior VTE?: No VTE Risk Level:: Medical - moderate - high VTE Device Contraindication: N/A - Device Ordered VTE Drug Contraindication: N/A - Med Ordered
--- NOTE | 2025-01-16 13:01 | PHA.MEDREC ---
Addendum entered by Garland Flores RPh 01/16/25 13:20: MED REC CHECKED BY [facility] Original Note: Pharmacy Consult ? Medication Reconciliation Pharmacy has completed the medication reconciliation. Spoke to patient to confirm med list. Patient states she no longer takes Amoxicillin-pot Clavulanate 875-125 mg, Ondansertron 4 mg, and Oxycodone 10 mg. Patient confirmed Insulin Lispro up 35 units Daily via Tandem T slim insulin pump.
[2025-01-16 13:28] VITALS: BP 152/71; PULSE 88; RESP 14; TEMP 37.4; O2SAT 97
[2025-01-16] MEDS: metroNIDAZOLE/NS 500 MG/100 ML PIGGYBACK 100 MG IV (13:42)
[2025-01-16] MEDS: Lactated Ringers 1,000 ML 100 ML IVCONT (14:59)
[2025-01-16] MEDS: 0.9 % Sodium Chloride Flush 3 ML SYRINGE IVFLUSH (15:00)
[2025-01-16] MEDS: Enoxaparin Sodium 40 MG/0.4 ML SYRINGE SUBCUT (15:00)
[2025-01-16 16:00] VITALS: BP 186/96; PULSE 86; RESP 18; TEMP 37; O2SAT 97
[2025-01-16 16:23] LABS: Glucose, Whole Blood 94 mg/dL (60-115)
[2025-01-16 19:49] VITALS: BP 148/79; PULSE 101; RESP 16; TEMP 37.2; O2SAT 99
[2025-01-16 21:08] LABS: Glucose, Whole Blood 145 mg/dL (60-115)
[2025-01-16 23:27] VITALS: BP 150/77; PULSE 88; RESP 16; TEMP 37.2; O2SAT 95
[2025-01-17] VITALS (8 sets, daily range): BP systolic 166–190; BP diastolic 81–110; PULSE 60–81; RESP 16–20; TEMP 36.2–37.1; O2SAT 94–99
[2025-01-17] MEDS: Morphine Sulfate 4 MG/ML CARTRIDGE IVPUSH ×6 (00:42→20:04)
[2025-01-17] MEDS: Lactated Ringers 1,000 ML 100 ML IVCONT (01:09)
[2025-01-17] MEDS: 0.9 % Sodium Chloride Flush 3 ML SYRINGE IVFLUSH (01:10)
[2025-01-17 06:20] LABS: Hemoglobin 11.9 g/dl (14.0-18.0); Mean Corpuscular HGB Conc 36.1 g/dl (31.0-36.0); Mean Corpuscular Hemoglobin 36.5 pg (27.0-33.0); Mean Corpuscular Volume 101.2 fL (80.0-98.0); Mean Platelet Volume 10.1 fL (9.4-12.4); Platelet Count 129 X10*3/uL (160-400); Red Blood Count 3.26 X10*6/uL (4.60-5.80); Red Cell Distribution Width 13.2 % (11.0-16.0); White Blood Count 8.9 X10*3/uL (4.8-10.8)
[2025-01-17 06:42] LABS: Alanine Aminotransferase 29 U/L (0-40); Albumin Level 3.1 g/dL (3.5-5.0); Alkaline Phosphatase 114 U/L (39-117); Anion Gap 12 (12-20); Aspartate Amino Transferase 39 U/L (5-37); Bilirubin Total 0.8 mg/dL (0.0-1.0); Blood Urea Nitrogen 11 mg/dL (9-16); Calcium 8.3 mg/dL (8.4-10.2); Carbon Dioxide 32 mmol/L (22-29); Chloride 98 mmol/L (96-108); Creatinine Clr Calc Pharmacy 86.3; Estimated Glomerular Filt Rate > 60; Glucose Random 150 mg/dL (60-115); Potassium 2.8 mmol/L (3.3-5.1); Sodium 139 mmol/L (135-145); Total Protein 5.3 g/dL (6.5-8.0)
[2025-01-17] MEDS: Pantoprazole Sodium 40 MG/10 ML VIAL IVPUSH ×2 (06:44→16:44)
[2025-01-17 07:41] LABS: Glucose, Whole Blood 105 mg/dL (60-115)
[2025-01-17] MEDS: Cyclobenzaprine HCl 5 MG TABLET PO ×2 (08:04→16:44)
[2025-01-17] MEDS: Potassium Chloride/H20 10 MEQ/100 ML PIGGYBACK 100 MEQ IV ×2 (08:05→09:26)
[2025-01-17] MEDS: Multivitamin TABLET 1 TAB PO (08:05)
[2025-01-17] MEDS: Cholecalciferol (Vitamin D3) 25 MCG TABLET PO (08:05)
[2025-01-17] MEDS: Potassium Chloride ER 20 MEQ TAB.ER.PRT 40 MEQ PO (08:05)
[2025-01-17] MEDS: Cyanocobalamin (Vitamin B-12) 1,000 MCG TABLET 1000 MCG PO (08:05)
[2025-01-17] MEDS: Fluticasone/Vilanterol 100/25 BLST.W.DEV 1 PUFF INHALE (08:17)
[2025-01-17 08:43] LABS: Magnesium 1.6 mg/dL (1.6-2.6)
--- NOTE | 2025-01-17 09:20 | P.PNIM_ITS ---
Subjective Subjective Date of Service: 01/17/25 Interval History: seen and examined having epigastric/throat burning pain denies bleeding denies EtOH use Review of Systems Negative except HPI/interval history. Physical Exam 2 Vital Signs: Vital Signs: Last Vital Signs Temp 98.5 F 01/17/25 07:15 Pulse 60 01/17/25 08:18 Resp 16 01/17/25 08:18 BP 170/92 H 01/17/25 07:15 Pulse Ox 98 01/17/25 07:15 O2 Del Method Room Air 01/17/25 07:15 BMI result Body Mass Index 22.3 Const: Other: General - no acute distress, appears comfortable Cardiovascular - regular rate and rhythm, S1-S2 Lungs - normal respiratory effort, clear to auscultation bilaterally, no wheezing Abdomen - soft, with mild epigastric TTP Extremities - no edema bilaterally Neuro - awake and alert, no focal deficits Objective Data Active Medications Acetaminophen (Acetaminophen 325 Mg Tablet) 650 mg PO Q6H PRN PRN Reason: Pain, Mild 1-3,fever,headache Calcium Carbonate (Calcium Carbonate 750 Mg Tab.Chew) 750 mg PO Q4H PRN PRN Reason: Heartburn Clonazepam (Clonazepam 0.5 Mg Tablet) 0.5 mg PO BEDTIME PRN PRN Reason: Anxiety Clonidine HCl (Clonidine Hcl 0.1 Mg Tablet) 0.1 mg PO DAILY PRN; Protocol PRN Reason: Anxiety Cyanocobalamin (Cyanocobalamin (Vitamin B-12) 1,000 Mcg Tablet) 1,000 mcg PO DAILY [facility] Last Admin: 01/17/25 08:05 Dose: 1,000 mcg Documented By: CLAIRE Cyclobenzaprine HCl (Cyclobenzaprine Hcl 5 Mg Tablet) 5 mg PO TID PRN PRN Reason: muscle spasm Last Admin: 01/17/25 08:04 Dose: 5 mg Documented By: CLAIRE Enoxaparin Sodium (Enoxaparin Sodium 40 Mg/0.4 Ml Syringe) 40 mg SUBCUT Q24H [facility] Last Admin: 01/16/25 15:00 Dose: 40 mg Documented By: JOSE ELIAS Fluticasone/Vilanterol (Fluticasone/Vilanterol 100/25 Blst.W.Dev) 1 puff INHALE RDAILY [facility] Last Admin: 01/17/25 08:17 Dose: 1 puff Documented By: KELLY Potassium Chloride (Potassium Chloride/H20) 10 meq in 100 mls @ 100 mls/hr IV Q1H [facility] Stop: 01/17/25 09:44 Last Admin: 01/17/25 08:05 Dose: 100 mls/hr Documented By: CLAIRE Insulin Human Lispro (Insulin Lispro 100 Unit/Ml 3 Ml Vial) 0 unit SUBCUT QIDACHS [facility]; Protocol Last Admin: 01/17/25 07:47 Dose: Not Given Documented By: CLAIRE Non-Admin Reason: No Insulin Coverage Magnesium Hydroxide (Milk Of Magnesia 30 Ml Oral.Susp) 30 ml PO DAILY PRN PRN Reason: Constipation Melatonin (Melatonin 3 Mg Tablet) 6 mg PO BEDTIME PRN PRN Reason: Insomnia Morphine Sulfate (Morphine Sulfate 4 Mg/Ml Cartridge) 4 mg IVPUSH Q2H PRN; Protocol PRN Reason: Pain, Severe (Pain Scale 7-10) Multivitamins/Vitamin C (Multivitamin Tablet) 1 tab PO DAILY [facility] Last Admin: 01/17/25 08:05 Dose: 1 tab Documented By: CLAIRE Pantoprazole Sodium (Pantoprazole Sodium 40 Mg/10 Ml Vial) 40 mg IVPUSH BID@0630,1630 [facility] Last Admin: 01/17/25 06:44 Dose: 40 mg Documented By: SEBAS Sodium Chloride (0.9 % Sodium Chloride Flush 3 Ml Syringe) 3 ml IVFLUSH QSHIFT [facility] Last Admin: 01/17/25 08:05 Dose: Not Given Documented By: CLAIRE Non-Admin Reason: IV Running Vitamin D (Cholecalciferol (Vitamin D3) 25 Mcg Tablet) 25 mcg PO DAILY [facility] Last Admin: 01/17/25 08:05 Dose: 25 mcg Documented By: CLAIRE Labs 01/17/25 05:30 01/17/25 05:30 Labs: Laboratory Results - last 24 hr 01/16/25 01/16/25 01/16/25 09:21 10:08 11:54 MCV 99.5 H MCH 36.2 H MCHC 36.4 H RDW 13.0 Plt Count 222 D MPV 9.6 Immature Gran % (Auto) 0.3 Neut % (Auto) 82.6 H Lymph % (Auto) 11.2 L [place] % (Auto) 5.6 Eos % (Auto) 0.0 Baso % (Auto) 0.3 Lymph # (Auto) 1.0 L [place] # (Auto) 0.5 Eos # (Auto) 0.0 Baso # (Auto) 0.0 Abs Immat Gran (auto) 0.03 Absolute Neuts (auto) 7.2 Absolute Nucleated RBC 0.000 Nucleated RBC % (auto) 0.0 Anion Gap 16 Estim Creat Clear Calc 67.1 Estimated GFR 56 POC Glucose Random Glucose 286 H Lactic Acid 1.8 Calcium 9.6 D Magnesium 1.4 L* Total Bilirubin 0.8 AST 63 H ALT 38 Alkaline Phosphatase 150 H Total Protein 6.8 Albumin 4.0 Lipase 10 Beta-Hydroxybutyrate 0.70 H Urine Color Yellow Urine Appearance Clear Urine pH >= 9.0 Ur Specific [place] 1.020 Urine Protein 300 (3+) H Urine Glucose (UA) 100 H Urine Ketones 15 Urine Blood Small (1+) H Urine Nitrite Negative Ur Leukocyte Esterase Negative Urine RBC >20 H Urine WBC 0-5 Ur Squamous Epith Cells 0-2 Urine Bacteria None Seen Hyaline Casts 0-2 Urine Opiates Screen Not Detected Ur Buprenorphine Scrn Not Detected Ur Oxycodone Screen Not Detected Urine Methadone Screen Not Detected Urine Fentanyl Screen Not Detected Ur Barbiturates Screen Not Detected Ur Phencyclidine Scrn Not Detected Ur Amphetamines Screen Not Detected U Benzodiazepines Scrn Not Detected Urine Cocaine Screen POSITIVE H U Marijuana (THC) Screen POSITIVE H Influenza Type A (PCR) NEGATIVE Influenza Type B (PCR) NEGATIVE RSV RNA Qual (PCR) NEGATIVE SARS-CoV-2 RNA (RT-PCR) NEGATIVE 01/16/25 01/16/25 01/17/25 16:16 21:04 05:30 MCV 101.2 H MCH 36.5 H MCHC 36.1 H RDW 13.2 Plt Count 129 L D MPV 10.1 Immature Gran % (Auto) Neut % (Auto) Lymph % (Auto) [place] % (Auto) Eos % (Auto) Baso % (Auto) Lymph # (Auto) [place] # (Auto) Eos # (Auto) Baso # (Auto) Abs Immat Gran (auto) Absolute Neuts (auto) Absolute Nucleated RBC 0.000 Nucleated RBC % (auto) 0.0 Anion Gap 12 Estim Creat Clear Calc 86.3 Estimated GFR > 60 POC Glucose 94 145 H Random Glucose 150 H Lactic Acid Calcium 8.3 L D Magnesium 1.6 Total Bilirubin 0.8 AST 39 H ALT 29 Alkaline Phosphatase 114 Total Protein 5.3 L Albumin 3.1 L Lipase Beta-Hydroxybutyrate Urine Color Urine Appearance Urine pH Ur Specific [place] Urine Protein Urine Glucose (UA) Urine Ketones Urine Blood Urine Nitrite Ur Leukocyte Esterase Urine RBC Urine WBC Ur Squamous Epith Cells Urine Bacteria Hyaline Casts Urine Opiates Screen Ur Buprenorphine Scrn Ur Oxycodone Screen Urine Methadone Screen Urine Fentanyl Screen Ur Barbiturates Screen Ur Phencyclidine Scrn Ur Amphetamines Screen U Benzodiazepines Scrn Urine Cocaine Screen U Marijuana (THC) Screen Influenza Type A (PCR) Influenza Type B (PCR) RSV RNA Qual (PCR) SARS-CoV-2 RNA (RT-PCR) 01/17/25 07:36 MCV MCH MCHC RDW Plt Count MPV Immature Gran % (Auto) Neut % (Auto) Lymph % (Auto) [place] % (Auto) Eos % (Auto) Baso % (Auto) Lymph # (Auto) [place] # (Auto) Eos # (Auto) Baso # (Auto) Abs Immat Gran (auto) Absolute Neuts (auto) Absolute Nucleated RBC Nucleated RBC % (auto) Anion Gap Estim Creat Clear Calc Estimated GFR POC Glucose 105 Random Glucose Lactic Acid Calcium Magnesium Total Bilirubin AST ALT Alkaline Phosphatase Total Protein Albumin Lipase Beta-Hydroxybutyrate Urine Color Urine Appearance Urine pH Ur Specific [place] Urine Protein Urine Glucose (UA) Urine Ketones Urine Blood Urine Nitrite Ur Leukocyte Esterase Urine RBC Urine WBC Ur Squamous Epith Cells Urine Bacteria Hyaline Casts Urine Opiates Screen Ur Buprenorphine Scrn Ur Oxycodone Screen Urine Methadone Screen Urine Fentanyl Screen Ur Barbiturates Screen Ur Phencyclidine Scrn Ur Amphetamines Screen U Benzodiazepines Scrn Urine Cocaine Screen U Marijuana (THC) Screen Influenza Type A (PCR) Influenza Type B (PCR) RSV RNA Qual (PCR) SARS-CoV-2 RNA (RT-PCR) Assessment and Plan (1) Esophagitis: Status: Acute (2) Enterocolitis: Status: Acute Plan 49 yo M with recent hospitalization for esophagitis who presents to the ED with a 1 day history of intractable nausea/vomiting found to have esophatitis + entercolitis. Despite treatment in the ED, continues to be symtomatic with multiple issues and hence will be admitted for further care. 1. Acute nausea/vomiting/abdominal pain due secondary to esophatitis + enterocolitis (likely viral) still with significant epigastric pain, no diarrhea or bleeding will increase morphine to every 3 hours add carafate continue IV PPI today continue full liquids today 2. HyperNa, HypoMg, contraction alkalosis, hypoK K still low -- will replete IV and PO others normalized 3. DM with hyperglycemia improved continue sliding scale 4. Prolonged qtc likely due to electrolyte abnormalities lytes still abnormal -- replete and recheck later today 5. Mood continue baseline meds 6. Anemia / thrombocytopenia significant change from admission, but without evidence of bleeding -- suspected he was hemoconcentrated on initial labs. will repeat cbc this AM to ensure stability Full Code DVT pptx - hold for now given drop in h/h, platelets; use mechanical Pt with on going abdominal pain requiring adjustment to IV analgesic frequecy, multiple electrolyte abnormalities Quality Stroke Does the patient have a stroke diagnosis?: No VTE Prior VTE?: No VTE Risk Level:: Medical - moderate - high VTE Device Contraindication: N/A - Device Ordered VTE Drug Contraindication: N/A - Med Ordered
[2025-01-17 10:38] LABS: Hematocrit 34.2 % (42.0-52.0); Hemoglobin 12.2 g/dl (14.0-18.0); Mean Corpuscular HGB Conc 35.7 g/dl (31.0-36.0); Mean Corpuscular Hemoglobin 36.2 pg (27.0-33.0); Mean Corpuscular Volume 101.5 fL (80.0-98.0); Mean Platelet Volume 9.7 fL (9.4-12.4); Platelet Count 138 X10*3/uL (160-400); Red Blood Count 3.37 X10*6/uL (4.60-5.80); White Blood Count 6.9 X10*3/uL (4.8-10.8)
[2025-01-17] MEDS: Magnesium Sulfate/H2O 2 GM/50 ML PIGGYBACK IV (10:47)
[2025-01-17] MEDS: Sucralfate 1 GM TABLET PO ×3 (10:47→19:55)
[2025-01-17] MEDS: Acetaminophen 325 MG TABLET 650 MG PO (10:56)
[2025-01-17 11:41] LABS: Glucose, Whole Blood 143 mg/dL (60-115)
--- NOTE | 2025-01-17 15:24 | MHC.CM.PN ---
EMR REVIEWED, PT W/VOMITING BACK SPASMS/ETOH, CM MET W/PT WHO REPORTS HE LIVES W/HIS MOTHER, IS INDEP W/CARE, HAS TYPE1 DM AND USES A TANDER SLIM PUMP AND NO OTHER DME OR SERVICES. GOAL FOR DC IS HOME AND PT WILL CONTACT HIS MOTHER OR S.O. FOR TRANSPORT. PT VERIFIES HCP/PCP ON FILE ARE CORRECT.
[2025-01-17 16:00] LABS: Glucose, Whole Blood 93 mg/dL (60-115)
[2025-01-17] MEDS: amLODIPine Besylate 5 MG TABLET PO (16:57)
[2025-01-17 19:40] LABS: Glucose, Whole Blood 114 mg/dL (60-115)
[2025-01-17] MEDS: cloNIDine HCL 0.1 MG TABLET PO (19:55)
[2025-01-18] VITALS (10 sets, daily range): BP systolic 164–203; BP diastolic 80–101; PULSE 62–84; RESP 16–20; TEMP 36.1–37.3; O2SAT 97–99
[2025-01-18] MEDS: Morphine Sulfate 4 MG/ML CARTRIDGE IVPUSH ×3 (00:08→09:31)
[2025-01-18] MEDS: 0.9 % Sodium Chloride Flush 3 ML SYRINGE IVFLUSH ×3 (00:13→16:10)
[2025-01-18] MEDS: amLODIPine Besylate 2.5 MG TABLET PO (01:24)
[2025-01-18] MEDS: Pantoprazole Sodium 40 MG/10 ML VIAL IVPUSH (05:40)
[2025-01-18 07:55] LABS: Glucose, Whole Blood 166 mg/dL (60-115)
[2025-01-18 08:34] LABS: Hematocrit 35.9 % (42.0-52.0); Hemoglobin 12.6 g/dl (14.0-18.0); Mean Corpuscular HGB Conc 35.1 g/dl (31.0-36.0); Mean Corpuscular Hemoglobin 35.4 pg (27.0-33.0); Mean Corpuscular Volume 100.8 fL (80.0-98.0); Mean Platelet Volume 9.9 fL (9.4-12.4); Platelet Count 143 X10*3/uL (160-400); Red Blood Count 3.56 X10*6/uL (4.60-5.80); Red Cell Distribution Width 12.6 % (11.0-16.0); White Blood Count 6.3 X10*3/uL (4.8-10.8)
[2025-01-18 08:48] LABS: Anion Gap 8 (12-20); Blood Urea Nitrogen 6 mg/dL (9-16); Calcium 8.5 mg/dL (8.4-10.2); Carbon Dioxide 30 mmol/L (22-29); Chloride 102 mmol/L (96-108); Creatinine Clr Calc Pharmacy 97.5; Estimated Glomerular Filt Rate > 60; Glucose Random 148 mg/dL (60-115); Magnesium 1.6 mg/dL (1.6-2.6); Potassium 3.3 mmol/L (3.3-5.1); Sodium 137 mmol/L (135-145)
[2025-01-18] MEDS: Sucralfate 1 GM TABLET PO ×4 (09:34→20:26)
[2025-01-18] MEDS: Multivitamin TABLET 1 TAB PO (09:34)
[2025-01-18] MEDS: amLODIPine Besylate 5 MG TABLET PO ×2 (09:34→13:38)
[2025-01-18] MEDS: Cholecalciferol (Vitamin D3) 25 MCG TABLET PO (09:37)
[2025-01-18] MEDS: Cyanocobalamin (Vitamin B-12) 1,000 MCG TABLET 1000 MCG PO (09:37)
[2025-01-18] MEDS: Fluticasone/Vilanterol 100/25 BLST.W.DEV 1 PUFF INHALE (11:27)
[2025-01-18 12:07] LABS: Glucose, Whole Blood 117 mg/dL (60-115)
--- NOTE | 2025-01-18 13:28 | P.PNIM_ITS ---
Subjective Subjective Date of Service: 01/18/25 Interval History: seen and examined pain improving, slowly starting to tolerate diet denies bleeding Review of Systems Negative except HPI/interval history. Physical Exam 2 Vital Signs: Vital Signs: Last Vital Signs Temp 97.0 F 01/18/25 12:00 Pulse 72 01/18/25 12:00 Resp 18 01/18/25 12:00 BP 179/87 H 01/18/25 12:00 Pulse Ox 98 01/18/25 12:00 O2 Del Method Room Air 01/18/25 12:00 BMI result Body Mass Index 22.3 Const: Other: General - no acute distress, appears comfortable Cardiovascular - regular rate and rhythm, S1-S2 Lungs - normal respiratory effort, clear to auscultation bilaterally, no wheezing Abdomen - soft, with mild epigastric TTP which is improving Extremities - no edema bilaterally Neuro - awake and alert, no focal deficits Objective Data Active Medications Acetaminophen (Acetaminophen 325 Mg Tablet) 650 mg PO Q6H PRN PRN Reason: Pain, Mild 1-3,fever,headache Last Admin: 01/17/25 10:56 Dose: 650 mg Documented By: CLAIRE Amlodipine Besylate (Amlodipine Besylate 5 Mg Tablet) 5 mg PO ONCE ONE; Protocol Stop: 01/18/25 13:27 Amlodipine Besylate (Amlodipine Besylate 10 Mg Tablet) 10 mg PO DAILY [facility]; Protocol Calcium Carbonate (Calcium Carbonate 750 Mg Tab.Chew) 750 mg PO Q4H PRN PRN Reason: Heartburn Clonazepam (Clonazepam 0.5 Mg Tablet) 0.5 mg PO BEDTIME PRN PRN Reason: Anxiety Clonidine HCl (Clonidine Hcl 0.1 Mg Tablet) 0.1 mg PO DAILY PRN; Protocol PRN Reason: Anxiety Last Admin: 01/17/25 19:55 Dose: 0.1 mg Documented By: MIKY Cyanocobalamin (Cyanocobalamin (Vitamin B-12) 1,000 Mcg Tablet) 1,000 mcg PO DAILY [facility] Last Admin: 01/18/25 09:37 Dose: 1,000 mcg Documented By: GAUTAM Cyclobenzaprine HCl (Cyclobenzaprine Hcl 5 Mg Tablet) 5 mg PO TID PRN PRN Reason: muscle spasm Last Admin: 01/17/25 16:44 Dose: 5 mg Documented By: CLAIRE Dextrose (Dextrose 50 % 25 Gm/50 Ml Syringe) 25 gm IVPUSH Q15M PRN; Protocol PRN Reason: per Hypoglycemia Standing Ord. Enoxaparin Sodium (Enoxaparin Sodium 40 Mg/0.4 Ml Syringe) 40 mg SUBCUT Q24H [facility] Last Admin: 01/16/25 15:00 Dose: 40 mg Documented By: JOSE ELIAS Fluticasone/Vilanterol (Fluticasone/Vilanterol 100/25 Blst.W.Dev) 1 puff INHALE RDAILY [facility] Last Admin: 01/18/25 11:27 Dose: 1 puff Documented By: SCOVILEron Glucose (Glucose Gel 15 Gm Gel..Gram.) 15 gm PO Q15M PRN; Protocol PRN Reason: per Hypoglycemia Standing Ord. Insulin Human Lispro (Insulin Lispro 100 Unit/Ml 3 Ml Vial) [facility]; Protocol Last Admin: 01/18/25 09:37 Dose: Not Given Documented By: GAUTAM Non-Admin Reason: No Insulin Coverage Magnesium Hydroxide (Milk Of Magnesia 30 Ml Oral.Susp) 30 ml PO DAILY PRN PRN Reason: Constipation Melatonin (Melatonin 3 Mg Tablet) 6 mg PO BEDTIME PRN PRN Reason: Insomnia Multivitamins/Vitamin C (Multivitamin Tablet) 1 tab PO DAILY [facility] Last Admin: 01/18/25 09:34 Dose: 1 tab Documented By: GAUTAM Oxycodone HCl (Oxycodone Hcl Immed Release 5 Mg Tablet) 5 mg PO Q6H PRN PRN Reason: Pain, Severe (Pain Scale 7-10) Pantoprazole Sodium (Pantoprazole Sodium 40 Mg/10 Ml Vial) 40 mg IVPUSH BID@0630,1630 [facility] Last Admin: 01/18/25 05:40 Dose: 40 mg Documented By: MIKY Sodium Chloride (0.9 % Sodium Chloride Flush 3 Ml Syringe) 3 ml IVFLUSH QSHIFT [facility] Last Admin: 01/18/25 09:34 Dose: 3 ml Documented By: GAUTAM Sucralfate (Sucralfate 1 Gm Tablet) 1 gm PO QIDACHS [facility] Last Admin: 01/18/25 11:13 Dose: 1 gm Documented By: GAUTAM Vitamin D (Cholecalciferol (Vitamin D3) 25 Mcg Tablet) 25 mcg PO DAILY [facility] Last Admin: 01/18/25 09:37 Dose: 25 mcg Documented By: GAUTAM Labs 01/18/25 08:18 01/18/25 08:18 Labs: Laboratory Results - last 24 hr 01/17/25 01/17/25 01/18/25 15:56 19:35 07:49 MCV MCH MCHC RDW Plt Count MPV Absolute Nucleated RBC Nucleated RBC % (auto) Anion Gap Estim Creat Clear Calc Estimated GFR POC Glucose 93 114 166 H Random Glucose Calcium Magnesium 01/18/25 01/18/25 08:18 11:58 MCV 100.8 H MCH 35.4 H MCHC 35.1 RDW 12.6 Plt Count 143 L MPV 9.9 Absolute Nucleated RBC 0.000 Nucleated RBC % (auto) 0.0 Anion Gap 8 L Estim Creat Clear Calc 97.5 Estimated GFR > 60 POC Glucose 117 H Random Glucose 148 H Calcium 8.5 Magnesium 1.6 Microbiology Microbiology Results: Microbiology 01/16/25 12:05 Blood Culture - Preliminary Blood - Venous No growth after 24 hours. 01/16/25 11:55 Blood Culture - Preliminary Blood - Venous No growth after 24 hours. Assessment and Plan (1) Esophagitis: Status: Acute Plan 49 yo M with recent hospitalization for esophagitis who presents to the ED with a 1 day history of intractable nausea/vomiting found to have esophatitis + entercolitis. Despite treatment in the ED, continues to be symtomatic with multiple issues and hence will be admitted for further care. 1. Acute nausea/vomiting/abdominal pain due secondary to esophatitis + enterocolitis (likely viral) pain slowly improving, will advance diet to solids and start transition to oral analgesics continue carafate, change PPI to IV 2. HyperNa, HypoMg, contraction alkalosis, hypoK resolved 3. DM with hyperglycemia improved pt wishes to use his own pump -- ordered 4. Prolonged qtc improved 5. Mood continue baseline meds 6. Anemia / thrombocytopenia cbc stable and at his baseline 7. HTN pt reports no prior diagnosis but BP trend has been significantly elevated started on norvasc yesterday -- 5mg, will uptitrate to 10mg Full Code DVT pptx - mechanical due to anemia/thrombocytopenia Reason for continued hospitalization: Transitioning from IV to oral therapies, advancing diet, titrating blood pressure medications. If remained stable/improved, anticipate discharge tomorrow Quality Stroke Does the patient have a stroke diagnosis?: No VTE Prior VTE?: No VTE Risk Level:: Medical - moderate - high VTE Device Contraindication: N/A - Device Ordered VTE Drug Contraindication: N/A - Med Ordered
[2025-01-18] MEDS: oxyCODONE HCl Immed Release 5 MG TABLET PO ×2 (13:30→20:26)
[2025-01-18] MEDS: Cyclobenzaprine HCl 5 MG TABLET PO ×2 (13:33→22:04)
[2025-01-18 16:05] LABS: Glucose, Whole Blood 142 mg/dL (60-115)
[2025-01-18] MEDS: Omeprazole 40 MG CAPSULE.DR PO (16:09)
[2025-01-18] MEDS: Milk of Magnesia 30 ML ORAL.SUSP PO (18:47)
[2025-01-18] MEDS: cloNIDine HCL 0.1 MG TABLET PO (20:26)
[2025-01-18 21:17] LABS: Glucose, Whole Blood 128 mg/dL (60-115)
[2025-01-19] MEDS: oxyCODONE HCl Immed Release 5 MG TABLET PO ×2 (03:30→10:29)
[2025-01-19 04:00] VITALS: BP 184/104; PULSE 84; RESP 19; O2SAT 97
[2025-01-19] MEDS: Omeprazole 40 MG CAPSULE.DR PO (06:08)
[2025-01-19 07:26] VITALS: BP 170/90; PULSE 86; RESP 18; TEMP 36.5; O2SAT 97
[2025-01-19 07:33] VITALS: BP 170/96
[2025-01-19] MEDS: amLODIPine Besylate 10 MG TABLET PO (07:33)
[2025-01-19] MEDS: Cholecalciferol (Vitamin D3) 25 MCG TABLET PO (07:33)
[2025-01-19] MEDS: Sucralfate 1 GM TABLET PO ×2 (07:34→11:45)
[2025-01-19] MEDS: 0.9 % Sodium Chloride Flush 3 ML SYRINGE IVFLUSH ×2 (07:34)
[2025-01-19] MEDS: Cyclobenzaprine HCl 5 MG TABLET PO (07:38)
[2025-01-19] MEDS: Multivitamin TABLET 1 TAB PO (07:41)
[2025-01-19] MEDS: Cyanocobalamin (Vitamin B-12) 1,000 MCG TABLET 1000 MCG PO (07:42)
[2025-01-19] MEDS: Milk of Magnesia 30 ML ORAL.SUSP PO (07:44)
[2025-01-19] MEDS: Fluticasone/Vilanterol 100/25 BLST.W.DEV 1 PUFF INHALE (07:54)
[2025-01-19 07:55] LABS: Glucose, Whole Blood 160 mg/dL (60-115)
[2025-01-19 07:57] VITALS: PULSE 98; O2SAT 99
[2025-01-19] MEDS: Subcutaneous Insulin Pump SUBCUT ×2 (10:30→11:48)
[2025-01-19 11:34] VITALS: BP 167/90; PULSE 74; RESP 18; TEMP 36.4; O2SAT 98
[2025-01-19 11:43] LABS: Glucose, Whole Blood 196 mg/dL (60-115)
--- NOTE | 2025-01-19 12:02 | P.DS_ITS ---
DS: Providers Provider Date of Service: 01/19/25 Date of admission: 01/16/25 12:44 Date of discharge: 01/19/25 Primary care physician: EVELIA Arana DS: Diagnosis Discharge Diagnosis (1) Esophagitis: Status: Acute DS: Summary Hospital Course Hospital Course: from initial hpi: 49-year-old male with a past medical history significant for type 1 diabetes, hypertension, cirrhosis, polysubstance use disorder, erosive esophagitis, chronic back pain, mood disorder see ED with a 1 day history of back spasms, abdominal pain, nausea and vomiting. The patient reports that he typically has chronic back spasms for which he is on cyclobenzaprine. Reports on the day prior to hospitalization his back spasms were not responding to his baseline medications. Subsequent to this the patient reported intractable nausea and vomiting. He reports an inability to even tolerate liquids. He states that subsequent to this he has diffuse abdominal crampy pain. Due to persistent symptoms, the patient presented for further eval. ED course: Work up: CT abd/pelvis: Enterocolitis and acute esophagitis along with other findings (see report for full details); Na 147, bicarb 39, Mg 1.4, AST 63, beta hydroxybutyrate 0.7; qtc 490 Treatment: IV rocephin/flagyl, IV morphine, IV zofran + IV reglan, IVF, IV magnesium Despite above treatment, pt with on going vomiting and abdominal pain, hence will be admitted for further care. hospital course: Patient was admitted for acute nausea and vomiting and abdominal pain due to esophagitis and enterocolitis. This improved with PPI, Carafate, IV fluids and patient is now tolerating solid diet. For hypernatremia, hypomagnesemia, contraction alkalosis, hypokalemia this all resolved with supplement. For type 1 diabetes with hyperglycemia this improved with patient's own insulin pump. Prolonged QTC improved. For uncontrolled hypertension patient was started on amlodipine 10 mg daily which he will continue. Partially pain related as well. Patient is now feeling better will be discharged home. Time Attestation Discharge Coordination Time (in mins): 33 Quality: Safe Use of Opioids Does Pt have an Active Cancer Diagnosis on the Problem List?: No Quality: Stroke Does the patient have a stroke diagnosis?: No Physical Exam Vital Signs: Vital Signs: Last Vital Signs Temp 97.6 F 01/19/25 11:34 Pulse 74 01/19/25 11:34 Resp 18 01/19/25 11:34 BP 167/90 H 01/19/25 11:34 Pulse Ox 98 01/19/25 11:34 O2 Del Method Room Air 01/19/25 11:34 BMI result Body Mass Index 22.3 General: AO X 3, no acute distress Resp: CTA bilateral, no accessory muscles used CVS: S1,S2,RRR GI: soft, non tender, non distended Neuro: motor grossly intact, alert Psych: appropriate affect, appropriate insight DS: Data Data Completed and Pending Completed studies during hospitalization [Text1]: Procedures Excision of Stomach, Pylorus, Via Natural or Artificial Opening Endoscopic, Diagnostic (02/02/24) Labs on day of discharge: Laboratory Results - last 24 hr 01/18/25 01/18/25 01/18/25 11:58 16:00 21:14 POC Glucose 117 H 142 H 128 H 01/19/25 01/19/25 07:32 11:34 POC Glucose 160 H 196 H Preliminary micro results at discharge 01/16/25 12:05 Blood Culture - Preliminary Blood - Venous No growth after 48 hours. 01/16/25 11:55 Blood Culture - Preliminary Blood - Venous No growth after 48 hours. Discharge Plan Discharge Anticipated Discharge Date/Time: 01/19/25 11:58 Patient Disposition: Home, Self-Care Discharge Diagnosis: esophagitis, htn Referrals: Niru Crawford PA [Primary Care Provider] - 1 Week Discharge Medications: New amlodipine 10 mg Tablet 10 mg PO DAILY Qty: 90 0RF Protocol: Hold for SBP< HOLD for SBP < : 90 oxycodone 5 mg Tablet 5 mg PO Q6H PRN (Reason: Pain, Severe (Pain Scale 7-10)) Qty: 10 0RF Rx Instructions: Partial Fill upon patient request. omeprazole 40 mg capsule,delayed release(DR/EC) 40 mg PO DAILY Qty: 30 0RF Continued (DME) insulin syringe-needle U-100 [BD Insulin Syringe] 0.3 mL 29 gauge x 1/2 syringe See Rx Instructions .ROUTE .MEDSUPPLY Qty: 150 5RF Rx Instructions: 4 times a day (DME) pen needle, diabetic [BD Felisha 2nd Gen Pen Needle] 32 gauge x needle See Rx Instructions .ROUTE .MEDSUPPLY Qty: 50 4RF Rx Instructions: once a day (DME) 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 meter [FreeStyle Lite Meter] Kit See Rx Instructions .Route Qty: 1 0RF Rx Instructions: As directed-checks 4 X/day (DME) Tandem Mobi System Misc MISCELLANEOUS Rx Instructions: UP TO 100 UNITS INSULIN LISPRO DAILY VIA PUMP fluticasone propion-salmeterol [Advair Diskus] 250-50 mcg/dose Blister With Device 1 inh INHALATION BID albuterol sulfate [Ventolin HFA] 90 mcg/actuation Hfa Aerosol Inhaler 2 puff INHALATION Q4H PRN (Reason: Respiratory Distress) cyclobenzaprine 5 mg tablet 5 mg PO TID PRN (Reason: muscle spasm) Qty: 30 0RF omeprazole 40 mg Capsule,Delayed Release(Dr/Ec) 40 mg PO BID@0630,1630 Qty: 180 0RF clonidine HCl 0.1 mg tablet 0.1 mg PO DAILY PRN (Reason: Anxiety) insulin lispro 100 unit/mL solution 10 - 35 unit subcut DAILY cholecalciferol (vitamin D3) 25 mcg (1,000 unit) tablet 25 mcg PO DAILY Baqsimi 3 mg/actuation spray,non-aerosol 3 mg intranasal DAILY PRN (Reason: Hypoglycemia) cyanocobalamin (vitamin B-12) [Vitamin B-12] 1,000 mcg Tablet 1,000 mcg PO DAILY vitamin B complex Tablet 1 tab PO DAILY clonazepam 0.5 mg tablet 0.5 mg PO BEDTIME PRN (Reason: Anxiety) Rx Instructions: AT BEDTIME (DME) FreeStyle Lite Strips Strip See Rx Instructions .ROUTE .MEDSUPPLY Qty: 300 11RF Rx Instructions: 4x daily (DME) lancets [FreeStyle Lancets] 28 gauge [facility] [place] See Rx Instructions .Route Qty: 100 5RF Rx Instructions: As directed 4 X/day (DME) Ketone Urine Test Strip See Rx Instructions .ROUTE .MEDSUPPLY Qty: 25 1RF Rx Instructions: prn tid for nausea, vomiting, illness, glucose remaining over 250 Discharge Orders: Discharge Order (Routine); Ordered 01/19/25 Ordered By: Rahul Marina Diet: Advance to usual diet Activity on Discharge: As tolerated Stand Alone Forms: Patient Portal Discharge page Print Language: Vietnamese Care Plan Goals: recovery Health Concerns: htn, esophogitis Plan of Treatment: omeprazole, amlodipine, clonidine Assessment: see above
--- NOTE | 2025-01-19 14:04 | MHC.CM.PN ---
PT MEDICALLY CLEARED FOR DC HOME SELF CARE, PT WILL ARRANGE TRANSPORT HOME.
--- NOTE | 2025-01-22 18:54 | MHC.EVENTN ---
Clonazepam 0.5 mg was administered orally to patient on 01/18/25 at 2205.
== END 2025-01-19 14:04 | disposition home or self-care (01) | DRG 243 ==
LOC: HO.ED 10:54 → HO.EDOVER 13:21 → HO.IMC 15:20
PROVIDERS: Physician Assistant Medical; Admitting Provider Family Medicine; Emergency Provider Emergency Medicine; Visit Provider Internal Medicine
DX: K20.90 Esophagitis, unspecified without bleeding (principal); D69.6 Thrombocytopenia, unspecified; E87.0 Hyperosmolality and hypernatremia; A08.4 Viral intestinal infection, unspecified; I10 Essential (primary) hypertension; E87.3 Alkalosis; E87.6 Hypokalemia; D64.9 Anemia, unspecified; Z96.41 Presence of insulin pump (external) (internal); F17.210 Nicotine dependence, cigarettes, uncomplicated; R94.31 Abnormal electrocardiogram [ECG] [EKG]; F19.90 Other psychoactive substance use, unspecified, uncomplicated; E83.42 Hypomagnesemia; Z71.6 Tobacco abuse counseling; Z20.822 Contact with and (suspected) exposure to COVID-19; Z79.51 Long term (current) use of inhaled steroids; Z79.899 Other long term (current) drug therapy
CPT/HCPCS: 0241U; 36415; 74177; 80048; 80053; 80307; 81001; 82010; 82947; 83605; 83690; 83735; 85025; 85027; 87040; 93005; 94640; 99285; J0696; J1650; J1836; J2270; J2405; J2470; J2765; J3360; J3475; J3480; J7120; Q9967

== ENCOUNTER → 2025-01-16 10:16 | Outpatient (BNV) | payer MEDICAID, SELFPAY | PROVIDERS: Emergency Provider Emergency Medicine; Visit Provider Radiology Diagnostic Radiology | DX: K52.9 Noninfective gastroenteritis and colitis, unspecified (principal); K20.90 Esophagitis, unspecified without bleeding; N28.1 Cyst of kidney, acquired; I70.90 Unspecified atherosclerosis; M47.817 Spondylosis without myelopathy or radiculopathy, lumbosacral region; R16.0 Hepatomegaly, not elsewhere classified | CPT/HCPCS: 74177 ==

== ENCOUNTER 2025-01-16 12:44 | Outpatient (BNV) | payer MEDICAID, SELFPAY | END 2025-01-16 13:17 | PROVIDERS: Admitting Provider Family Medicine; Emergency Provider Emergency Medicine; Visit Provider Internal Medicine Cardiovascular Disease | DX: R94.31 Abnormal electrocardiogram [ECG] [EKG] (principal); R11.10 Vomiting, unspecified | CPT/HCPCS: 93010 ==

== ENCOUNTER → 2025-01-16 12:44 | Outpatient (BNV) | payer MEDICAID, SELFPAY | PROVIDERS: Admitting Provider Family Medicine; Emergency Provider Emergency Medicine; Visit Provider Family Medicine | DX: K20.90 Esophagitis, unspecified without bleeding (principal) | CPT/HCPCS: 99223; 99232; 99233; 99239 ==

== ENCOUNTER 2025-01-25 17:56 | Emergency (ER) | payer MEDICAID, SELFPAY ==
--- NOTE | 2025-01-25 | ECG_ITS ---
Test Reason : chest pain Blood Pressure : */* mmHG Vent. Rate : 98 BPM Atrial Rate : 98 BPM P-R Int : 168 ms QRS Dur : 90 ms QT Int : 378 ms P-R-T Axes : 63 67 64 degrees QTcB Int : 482 ms Normal sinus rhythm Prolonged QT Abnormal ECG When compared with ECG of 16-Jan-2025 13:17, No significant change was found Referred By: Generic ED Physician Electronically Signed By: ROBERT HEAD MD
[2025-01-25 18:01] VITALS: BP 161/89; PULSE 106; O2SAT 98; BMI 21.7
[2025-01-25 18:09] VITALS: BP 136/62; PULSE 97; RESP 20; TEMP 36.7; O2SAT 100
[2025-01-25 18:35] LABS: MANUAL DIFF FLAG NO
--- NOTE | 2025-01-25 18:39 | ED_ITS ---
HPI - General Adult General Chief complaint: ETOH/Substance Use Stated complaint: ETOH, chest pain, initially combative Time Seen by Provider: 01/25/25 18:39 Source: patient and EMS Limitations: other (intoxication) History of Present Illness ED Provider: Garima Castillo PA-C HPI narrative: 49-year-old male with a history of alcohol use disorder, hypertension, diabetes, COPD, tobacco abuse, GERD, who presents intoxicated. Patient has been argumentative and combative at home with his family. They called PD to the home. They state the patient had been sober for 10 years, he has relapsed over the past year. He drinks hard liquor daily. History limited given patient was quite hostile and belligerent here in the emergency department. Per EMS, he was initially calm and cooperative, he was complaining of generalized chest pain, he was given aspirin. He denied SI, HI for EMS. Patient not wanting to engage in conversation at this time so as to obtain a detailed history. Related Data Home Medications ?Medication ?Instructions ?Recorded ?Confirmed clonazepam 0.5 mg tablet 0.5 mg PO BEDTIME PRN Anxiety 07/16/21 01/16/25 albuterol sulfate 90 mcg/actuation 2 puff inhalation Q4H PRN 12/29/24 01/16/25 aerosol inhaler (Ventolin HFA) Respiratory Distress fluticasone 250 mcg-salmeterol 50 1 inh inhalation BID 12/29/24 01/16/25 mcg/dose blistr powdr for inhalation (Advair Diskus) subcutaneous insulin pump (Tandem 12/29/24 12/29/24 Mobi System) cholecalciferol (vitamin D3) 25 25 mcg PO DAILY 01/16/25 01/16/25 mcg (1,000 unit) tablet clonidine HCl 0.1 mg tablet 0.1 mg PO DAILY PRN Anxiety 01/16/25 01/16/25 cyanocobalamin (vitamin B-12) 1,000 mcg PO DAILY 01/16/25 01/16/25 1,000 mcg tablet (Vitamin B-12) glucagon 3 mg/actuation nasal 3 mg intranasal DAILY PRN 01/16/25 01/16/25 spray (Baqsimi) Hypoglycemia insulin lispro 100 unit/mL 10 - 35 unit subcut DAILY 01/16/25 01/16/25 subcutaneous solution vitamin B complex 1 tab PO DAILY 01/16/25 01/16/25 Previous Rx's ?Medication ?Instructions ?Recorded insulin syringe-needle U-100 0.3 #150 ea 08/29/20 mL 29 gauge x 1/2 (BD Insulin Syringe) pen needle, diabetic 32 gauge x #50 ea 08/29/20 5/32 (BD Felisha 2nd Gen Pen Needle) 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 meter (FreeStyle #1 ea 10/22/22 Lite Meter kit) blood sugar diagnostic (FreeStyle #300 ea 02/19/23 Lite Strips) lancets 28 gauge (FreeStyle #100 ea 02/19/23 Lancets) omeprazole 40 mg capsule,delayed 40 mg PO BID@0630,1630 #180 caps 02/06/24 release acetone (urine) test (Ketone Urine #25 ea 11/02/24 Test strips) cyclobenzaprine 5 mg tablet 5 mg PO TID PRN muscle spasm #30 01/01/25 tabs amlodipine 10 mg tablet 10 mg PO DAILY #90 tabs 01/19/25 omeprazole 40 mg capsule,delayed 40 mg PO DAILY #30 caps 01/19/25 release oxycodone 5 mg tablet 5 mg PO Q6H PRN Pain, Severe (Pain 01/19/25 Scale 7-10) #10 tabs Allergies Allergy/AdvReac Type Severity Reaction Status Date / Time hydroxyzine [From VISTARIL] Allergy Intermediate RASH, Verified 01/25/25 18:04 ANXIOUS quetiapine [Seroquel] AdvReac Intermediate Unknown Verified 01/25/25 18:04 Review of Systems 2 Review of Systems: Unable to obtain secondary to intoxication and belligerent behavior Yes all other systems are reviewed and are negative [facility] Past Medical History Attestation statement: The following information was validated with the patient. Medical History Peripheral vascular disease Elevated liver function tests Polysubstance abuse Osteoarthritis Type 1 diabetes History of drug abuse Depression Vitamin D deficiency 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 Mother No problems noted. Social History Social History Household Members: Family Household Members Other:: mother Housing: House Do you presently have visiting nurse or other home services: No Alcohol intake: current Alcohol intake frequency: 3 or more drinks per day Alcohol type: hard liquor Patient Tobacco Use Status: Current someday Tobacco user Tobacco use type: Cigarette Cigarettes Per Day: 3 Years Smoked: 33 Smoked in Last 30 Days: Yes e-Cigarette/Vaping Use: Currently Using Second Hand Smoke Exposure: No Use of substances other than those prescribed or required for medical reasons: No Substance Use Type: Marijuana Advance Directives: Yes Advance Directives on File: Yes Advance Directives Date on File: 08/29/20 Do you have a plan to hurt others: No Plan service: No Current occupational status: unemployed Physical Exam ED Vital Signs: Vital Signs - 24 hr 01/25/25 18:09 01/25/25 20:39 01/26/25 00:53 Temperature 98.0 F 98.3 F Pulse Rate 97 96 93 Respiratory Rate 20 14 14 Blood Pressure 136/62 135/62 155/80 H Pulse Oximetry 100 100 98 Oxygen Delivery Method Room Air Room Air Room Air 01/26/25 04:18 01/26/25 09:06 01/26/25 11:17 Temperature 98.6 F Pulse Rate 96 94 Respiratory Rate 14 14 16 Blood Pressure 155/89 H 210/97 H Pulse Oximetry 99 98 Oxygen Delivery Method Room Air Room Air 01/26/25 11:19 01/26/25 12:03 01/26/25 13:13 Temperature Pulse Rate Respiratory Rate Blood Pressure 210/97 H 193/104 H 200/110 H Pulse Oximetry Oxygen Delivery Method BMI result Body Mass Index 21.7 Const Other: Alert Orientation/consciousness: patient oriented x3 HENMT Other: Alcohol halitosis Resp Effort & Inspection: normal respiratory effort Cardio Other: Normal peripheral perfusion Skin Other: Warm dry no rash Neuro General: patient oriented x3, no focal motor deficits and CN's II-XI intact bilaterally Psych Other: Hostile, belligerent, yelling profanities at staff Course Reevaluation(s) Reevaluation #1: Time: 03:24 Date: 01/26/25 Provider: EVELIA Schneider Patient in physician observation for psychiatric evaluation.? No acute events reported overnight. No current complaints. VS stable.? Patient is in bed search status/pending CARE team evaluation. Will continue to monitor. Reevaluation #2: Time: 09:30 Date: 01/26/25 Provider: Sharmila Olvera DO Physician observation ended at 930am Patient has been cleared for discharge by the CARE team. Will follow up as an outpatient. clinically sober stable for DC Reevaluation #3: Time: 14:37 Date: 01/26/25 Provider: EVELIA Hernandez Physician observation ended at 1437. Patient has been cleared , he is not interested in detox right now. information provided for detox locations. he was found to be asymptomatically hypertensive to 200 systolic. given ativan and clonidine, ciwa 5. upon review of his meds he was recently prescribed norvasc 10 mg. does not take. he has no symptoms. his VS on prior visits have been elevated 150-200s systolic as well. after meds patients BP improved 10 180/90. he continues to be symptom free and wants to be discharged. importance of close outpatient follow up and med compliance discussed w/ patient. Will follow up as an outpatient. stable for d/c home Time: 14:37 Medications Administered Discontinued Medications Generic Name Dose Route Start Last Admin Trade Name Ethel PRN Reason Stop Dose Admin Acetaminophen 975 mg 01/25/25 22:06 01/26/25 04:25 Acetaminophen 325 Mg Tablet PO 01/25/25 22:07 Not Given ONCE ONE Amlodipine Besylate 10 mg 01/26/25 13:21 01/26/25 13:28 Amlodipine Besylate 10 Mg Tablet PO 01/26/25 13:22 10 mg ONCE ONE Administration Protocol Clonidine HCl 0.1 mg 01/26/25 11:14 01/26/25 11:19 Clonidine Hcl 0.1 Mg Tablet PO 01/26/25 11:15 0.1 mg ONCE ONE Administration Protocol Haloperidol Lactate 5 mg 01/25/25 19:58 01/25/25 20:08 Haloperidol Lactate 5 Mg/Ml Vial IM 01/25/25 19:59 5 mg STAT STA Administration Ibuprofen 600 mg 01/25/25 22:06 01/26/25 04:25 Ibuprofen 600 Mg Tablet PO 01/25/25 22:07 Not Given ONCE ONE Lorazepam 2 mg 01/26/25 11:14 01/26/25 11:19 Lorazepam 1 Mg Tablet PO 01/26/25 11:15 2 mg ONCE ONE Administration Midazolam HCl 2.5 mg 01/25/25 20:00 01/25/25 20:07 Midazolam Hcl 5 Mg/Ml Vial IM 01/25/25 20:01 2.5 mg ONCE ONE Administration Medical Decision Making Medical Decision Making MDM Narrative: 49-year-old male with a history of alcohol use disorder, hypertension, diabetes, COPD, tobacco abuse, GERD, who presents intoxicated. Patient has been argumentative and combative at home with his family. They called PD to the home. They state the patient had been sober for 10 years, he has relapsed over the past year. He drinks hard liquor daily. History limited given patient was quite hostile and belligerent here in the emergency department. Per EMS, he was initially calm and cooperative, he was complaining of generalized chest pain, he was given aspirin. He denied SI, HI for EMS. Patient not wanting to engage in conversation at this time so as to obtain a detailed history. Wound: Alcohol use disorder, diabetes History: Per patient which is limited and EMS I have considered the following differential diagnoses: Alcohol drug/intoxication, decompensated psychiatric illness, SI, HI, ACS Plan: Patient was not a reliable historian, he is clearly intoxicated, he did complain of chest pain, therefore, I will add on troponin, EKG along with screening labs. We will also be screening a serum ethanol, drug screen. I am placing a care team consult, perhaps once sober, the patient will want to discuss resources for detox. Once sober, if the patient chooses to leave, he can do so. Patient is hostile and belligerent at this time, his behaviors are escalating, he is happily accepting medication, we will give Haldol and Versed. We are not considering this restraint, the patient is willingly accepting the medication. I have independently reviewed the following tests: Labs: No leukocytosis, not anemic, no electrolyte abnormality, troponin negative, tox screen positive for marijuana, ethanol 367 EKG: Normal sinus rhythm, rate is 98, no ischemic changes no ectopy, QTC 482 Lab Data 01/25/25 18:31 01/25/25 18:31 Labs: Lab Results 01/25/25 01/25/25 01/26/25 Range/Units 18:31 19:15 19:15 WBC 9.4 (4.8-10.8) X10*3/uL RBC 4.23 L (4.60-5.80) X10*6/uL Hgb 15.3 D (14.0-18.0) g/dl Hct 42.9 (42.0-52.0) % MCV 101.4 H (80.0-98.0) fL MCH 36.2 H (27.0-33.0) pg MCHC 35.7 (31.0-36.0) g/dl RDW 13.1 (11.0-16.0) % Plt Count 277 D (160-400) X10*3/uL MPV 9.5 (9.4-12.4) fL Immature Gran % (Auto) 0.5 H (0.0-0.4) % Neut % (Auto) 44.6 L (45-73) % Lymph % (Auto) 41.2 H (20-40) % [place] % (Auto) 11.3 H (2-11) % Eos % (Auto) 1.4 (0-4) % Baso % (Auto) 1.0 (0-2) % Lymph # (Auto) 3.9 (1.2-4.9) X10*3/uL [place] # (Auto) 1.1 (0.1-1.2) X10*3/uL Eos # (Auto) 0.1 (0.0-0.4) X10*3/uL Baso # (Auto) 0.1 (0.0-0.2) X10*3/uL Abs Immat Gran (auto) 0.05 H (0.00-0.03) X10*3/uL Absolute Neuts (auto) 4.2 (2.0-8.3) x10*3/uL Absolute Nucleated RBC 0.000 (0.0-0.012) X10*3/uL Nucleated RBC % (auto) 0.0 (0.0-0.2) /100WBC Sodium 146 H (135-145) mmol/L Potassium 4.2 D (3.3-5.1) mmol/L Chloride 107 (96-108) mmol/L Carbon Dioxide 25 (22-29) mmol/L Anion Gap 18 (12-20) BUN 13 (9-16) mg/dL Creatinine 0.97 (0.5-1.4) mg/dL Estim Creat Clear Calc 90.8 Estimated GFR > 60 Random Glucose 129 H (60-115) mg/dL Calcium 9.4 D (8.4-10.2) mg/dL Magnesium 1.6 (1.6-2.6) mg/dL Total Bilirubin 0.5 (0.0-1.0) mg/dL AST 51 H (5-37) U/L ALT 37 (0-40) U/L Alkaline Phosphatase 130 H (39-117) U/L Troponin I High Sens < 2.7 D (<3.5-35.0) ng/L Total Protein 6.6 (6.5-8.0) g/dL Albumin 3.8 (3.5-5.0) g/dL Urine Color Yellow Urine Appearance Clear Urine pH 7.0 (5.0-9.0) Ur Specific [place] 1.020 (1.005-1.025) Urine Protein 30 (1+) H (Neg-Trace) mg/dL Urine Glucose (UA) Negative (Negative) mg/dL Urine Ketones Trace (Negative) mg/dL Urine Blood Small (1+) H (Negative) Urine Nitrite Negative (Negative) Ur Leukocyte Esterase Negative (Negative) Urine RBC 11-20 H (0-2) /HPF Urine WBC 0-5 (0-5) /HPF Ur Squamous Epith Cells 0-2 (0-2) /HPF Urine Bacteria None Seen (None Seen) Hyaline Casts 0-2 (0-2) /LPF Salicylates < 5.0 L (15-30) mg/dL Urine Opiates Screen Not Detected (Not Detect) Ur Buprenorphine Scrn Not Detected (Not Detect) ng/mL Ur Oxycodone Screen Not Detected (Not Detect) ng/mL Urine Methadone Screen Not Detected (Not Detect) ng/mL Urine Fentanyl Screen Not Detected (Not Detect) Acetaminophen < 3 (<30) mcg/mL Ur Barbiturates Screen Not Detected (Not Detect) Ur Phencyclidine Scrn Not Detected (Not Detect) Ur Amphetamines Screen Not Detected (Not Detect) U Benzodiazepines Scrn Not Detected (Not Detect) Urine Cocaine Screen Not Detected (Not Detect) U Marijuana (THC) Screen POSITIVE H (Not Detect) Ethyl Alcohol 367 H* mg/dL Discharge Plan Discharge Clinical Impression: Alcohol abuse, Aggression Alcohol intoxication Qualifiers: Complication of substance-induced condition: with unspecified complication Q ualified Code(s): F10.929 - Alcohol use, unspecified with intoxication, unspecified Patient Disposition: Home, Self-Care Instructions: Alcohol Use Disorder (ED) Additional Instructions: Alcohol use disorder You were seen in the Emergency Department today for treatment of alcohol use disorder.? You may have been given medications to help with your withdrawal symptoms.? Please do not drink alcohol with them. This is very dangerous and can cause respiratory depression or other adverse reactions depending on the medication. If you would like to cut down or stop your alcohol use please consider calling our outpatient Addiction Treatment office:? [facility] (-F 9a-5p) [address] [place] [address] ? You have also been given a list of treatment providers in the area that can assist as well.? If you experience seizures, vomiting blood, black stools, falls, severe headache, chest pain, fevers, trouble breathing, hallucinations or any other concerns you need to call 911 or seek immediate care. Please stay hydrated. You were seen in our Emergency Department today for treatment of a behavioral health issue. It is important after your visit that you follow up with either your behavioral health provider or a primary care doctor within 7 days.? If you have trouble finding a therapist you can reach out to [address] [phone] The National Suicide and Crisis Lifeline can be reached 7 days a week 24 hours a day.? Call 988 to speak with someone.? Return for any worsening symptoms or concerns such as thoughts of self harm or harm to others. Please call 911 if you feel your mental health is worsening.? Prescriptions: No Action (DME) insulin syringe-needle U-100 [BD Insulin Syringe] 0.3 mL 29 gauge x 1/2 syringe See Rx Instructions .ROUTE .MEDSUPPLY Qty: 150 5RF Rx Instructions: 4 times a day (DME) pen needle, diabetic [BD Felisha 2nd Gen Pen Needle] 32 gauge x 5/32 needle See Rx Instructions .ROUTE .MEDSUPPLY Qty: 50 4RF Rx Instructions: once a day (DME) 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 meter [FreeStyle Lite Meter] Kit See Rx Instructions .Route Qty: 1 0RF Rx Instructions: As directed-checks 4 X/day (DME) Tandem Mobi System Misc MISCELLANEOUS Rx Instructions: UP TO 100 UNITS INSULIN LISPRO DAILY VIA PUMP fluticasone propion-salmeterol [Advair Diskus] 250-50 mcg/dose Blister With Device 1 inh INHALATION BID albuterol sulfate [Ventolin HFA] 90 mcg/actuation Hfa Aerosol Inhaler 2 puff INHALATION Q4H PRN (Reason: Respiratory Distress) cyclobenzaprine 5 mg tablet 5 mg PO TID PRN (Reason: muscle spasm) Qty: 30 0RF omeprazole 40 mg Capsule,Delayed Release(Dr/Ec) 40 mg PO BID@0630,1630 Qty: 180 0RF clonidine HCl 0.1 mg tablet 0.1 mg PO DAILY PRN (Reason: Anxiety) insulin lispro 100 unit/mL solution 10 - 35 unit subcut DAILY cholecalciferol (vitamin D3) 25 mcg (1,000 unit) tablet 25 mcg PO DAILY Baqsimi 3 mg/actuation spray,non-aerosol 3 mg intranasal DAILY PRN (Reason: Hypoglycemia) cyanocobalamin (vitamin B-12) [Vitamin B-12] 1,000 mcg Tablet 1,000 mcg PO DAILY vitamin B complex Tablet 1 tab PO DAILY amlodipine 10 mg Tablet 10 mg PO DAILY Qty: 90 0RF Protocol: Hold for SBP< HOLD for SBP < : 90 oxycodone 5 mg Tablet 5 mg PO Q6H PRN (Reason: Pain, Severe (Pain Scale 7-10)) Qty: 10 0RF Rx Instructions: Partial Fill upon patient request. omeprazole 40 mg capsule,delayed release(DR/EC) 40 mg PO DAILY Qty: 30 0RF clonazepam 0.5 mg tablet 0.5 mg PO BEDTIME PRN (Reason: Anxiety) Rx Instructions: AT BEDTIME (DME) FreeStyle Lite Strips Strip See Rx Instructions .ROUTE .MEDSUPPLY Qty: 300 11RF Rx Instructions: 4x daily (DME) lancets [FreeStyle Lancets] 28 gauge misc See Rx Instructions .Route Qty: 100 5RF Rx Instructions: As directed 4 X/day (DME) Ketone Urine Test Strip See Rx Instructions .ROUTE .MEDSUPPLY Qty: 25 1RF Rx Instructions: prn tid for nausea, vomiting, illness, glucose remaining over 250 Stand Alone Forms: Work/School Release Print Language: Tamazight
[2025-01-25 18:46] LABS: Ethanol 367 mg/dL
[2025-01-25 18:48] LABS: Basophils Absolute Auto 0.1 X10*3/uL (0.0-0.2); Eosinophils Absolute Auto 0.1 X10*3/uL (0.0-0.4); Eosinophils Percent Auto 1.4 % (0-4); Hematocrit 42.9 % (42.0-52.0); Hemoglobin 15.3 g/dl (14.0-18.0); Imm Gran Abs Auto 0.05 X10*3/uL (0.00-0.03); Imm Gran Pct Auto 0.5 % (0.0-0.4); Lymphocytes Absolute Auto 3.9 X10*3/uL (1.2-4.9); Lymphocytes Percent Auto 41.2 % (20-40); Mean Corpuscular HGB Conc 35.7 g/dl (31.0-36.0); Mean Corpuscular Hemoglobin 36.2 pg (27.0-33.0); Mean Corpuscular Volume 101.4 fL (80.0-98.0); Mean Platelet Volume 9.5 fL (9.4-12.4); Monocytes Absolute Auto 1.1 X10*3/uL (0.1-1.2); Monocytes Percent Auto 11.3 % (2-11); Neutrophils Absolute Auto 4.2 x10*3/uL (2.0-8.3); Neutrophils Percent Auto 44.6 % (45-73); Platelet Count 277 X10*3/uL (160-400); Red Blood Count 4.23 X10*6/uL (4.60-5.80); Red Cell Distribution Width 13.1 % (11.0-16.0); White Blood Count 9.4 X10*3/uL (4.8-10.8)
[2025-01-25 18:49] LABS: Alanine Aminotransferase 37 U/L (0-40); Albumin Level 3.8 g/dL (3.5-5.0); Alkaline Phosphatase 130 U/L (39-117); Anion Gap 18 (12-20); Aspartate Amino Transferase 51 U/L (5-37); Bilirubin Total 0.5 mg/dL (0.0-1.0); Blood Urea Nitrogen 13 mg/dL (9-16); Calcium 9.4 mg/dL (8.4-10.2); Carbon Dioxide 25 mmol/L (22-29); Chloride 107 mmol/L (96-108); Creatinine Clr Calc Pharmacy 90.8; Estimated Glomerular Filt Rate > 60; Glucose Random 129 mg/dL (60-115); Magnesium 1.6 mg/dL (1.6-2.6); Potassium 4.2 mmol/L (3.3-5.1); Sodium 146 mmol/L (135-145); Total Protein 6.6 g/dL (6.5-8.0)
[2025-01-25 18:52] LABS: Acetaminophen LAB < 3 mcg/mL (<30); Salicylate < 5.0 mg/dL (15-30)
[2025-01-25 18:57] LABS: Troponin-I High Sensitivity < 2.7 ng/L (<3.5-35.0)
[2025-01-25 19:31] LABS: Amphetamine Screen Urine Not Detected (Not Detect); Barbiturates, Urine Not Detected (Not Detect); Benzodiazepines Screen Urine Not Detected (Not Detect); Buprenorphine Scr Not Detected (Not Detect); Cannabinoid Screen Urine POSITIVE (Not Detect); Cocaine Screen Urine Not Detected (Not Detect); Fentanyl, urine Not Detected (Not Detect); Methadone Screen, Urine Not Detected (Not Detect); Opiate Screen Urine Not Detected (Not Detect); Oxycodone Screen Urine Not Detected (Not Detect); Phencyclidine Screen Urine Not Detected (Not Detect)
--- OUTSIDE RECORDS SUMMARY | 2025-01-25 19:41 | XMS_ITS ---
Author Organization [facility] Address [address] [place] [address] Care Team Providers Care Black And White Printer Operator Name Role Phone Neida DUNAWAY, Linda Primary Care Provider Hank Corral [phone] Problems Problem Type SNOMED Code ICD Code Onset Dates Problem Status W/U Status Risk Notes Problem Chronic gastritis (0511593) Gastritis, chronic (K29.50) Active confirmed Encounters Encounter Location Date Provider Diagnosis [facility] Outpatient [address] [place] [phone] 02/04/2024 Hank Stanford Plan Of Treatment No Information Progress Notes * GRAHAM MCINTOSH TDOB: 5 (49 yo M)Acc No.[id number]:02/04/2024 EGD/MAC Patient:?GRAHAM MCINTOSH Provider:?Hank Stanford MD :1975???Age:48 Y???Sex:Male Irwin e:02/04/2024 Address:[address] [place], [place] [phone] Pcp:Linda Carrasquillo NP Subjective: * Chief Complaints: [...] MD Date:? 024 Generated for Dailyi mio/Faxing/eTransmitting on:?01/25/2025 07:41 PM EDT
--- OUTSIDE RECORDS SUMMARY | 2025-01-25 19:41 | XMS_ITS ---
Author Organization [facility] Address [address] [place] [address] Care Team Providers Care Nutrition Assistant Name Role Phone Neida DUNAWAY, Linda Primary Care Provider Hank Corral [phone] Allergies Allergen (clinical drug ingredient) Drug/Non Drug [...] 2014; uses medical marijuana from dispensary in [place] for apetitie stimulant, anxiety/depression, and pain relief. Smokes 2 cigs QD. Problems Problem Type SNOMED Code ICD Code Onset Dates Problem Status W/U Status Risk Notes Problem 04589067 Erosive esophagitis (K22.10) Active confirmed Vital Signs Temperature 96.4 degrees Fahrenheit 08/27/20 23 Blood pressure systolic 00 mm Hg 08/27/20 23 Blood pressure diastolic 00 mm Hg 023 Height 71 in 08/27/2023 Weight 155 lbs 08/27/2023 BMI 21.62 kg/m2 08/27/2023 Encounters Encounter Location Date Provider Diagnosis [facility] [address] [place] [address] 08/27/2023 Hank Stanford Erosive esophagitis K22.10 Assessments [...] GRAHAM MCINTOSH TDOB: 5 (47 yo M)Acc No.[id number]:08/27/2023 Progress Notes Patient:?GRAHAM MCINTOSH T Provider:?Hank Stanford MD :1975???Age:47 Y???Sex:Male Irwin e:08/27/2023 Address:[address] [place], [place] [id number] Pcp:Linda Carrasquillo NP Subjective: * Chief Complaints: [...] in the past year??No,?Points?0,?Interpretation?Negative.?Miscellaneous:?Marital status: . Occupation: [employer]. ???Recovering alcoholic--heavy until 2009--reports occ. lapses, but last time was 2014; substance abuse with previous IVDA-none since 2014; uses medical marijuana from dispensary in [place] for apetitie stimulant, anxiety/depression, and pain relief. [...] Procedure Codes:?3017F COLOR ECTAL CA SCREEN DOC [id number] BP SCR NOT PRFRM REC REASON [id number] Pt scrn tbco and id as user * Follow Up:?prn * * Sign off status: Completed true * Provider:?Hank Stanford MD Date:? 023 Generated for Rahel lieberman/Chema/eTyolandasmitting on:?01/25/2025 07:41 PM EDT History and Physical Notes * [...]
--- OUTSIDE RECORDS SUMMARY | 2025-01-25 19:41 | XMS_ITS | Patient Health Record ---
Author Organization [facility] Address [address] [place] [address] Care Team Providers Care Tosser Name Role Phone Neida DUNAWAY, Linda Primary Care Provider Hank Corral [phone] Allergies Allergen (clinical drug ingredient) Drug/Non Drug Allergy documented on EMR Reaction Allergy Type Onset Date Status hydroxyzine Vistaril Unknown Drug Allergy Activ e quetiapine SEROquel Unknown Drug Allergy Active Results Component Value Reference Range Notes Pathology Reviewed date:02/05/2024 03:29:18 PM Interpretation: Performing Lab:[facility], [address] [place] [phone] Notes/Report: Name: Graham Mcintosh Age/Sex: 48/M : 1975 Unit#: [id number] Attend Dr: Rahul Marina MD Re02/02/24 Status : ADM IN Location: [place] [id number] Disch: SPEC : [id number] RECD : 02/04/24 STATUS: APRIL FORTE NUM: [id number] TODD: 02/04/24-[address] [facility] [address]: Hank Stanford ENTERED: 02/04/24 19 SP [...] on A. Copies To: Sergo Castro MD [address] [place] [id number] [email or web address] Hank Stanford [address] [place] [address] [id number] [place] [id number] Signed (si gnature on file) Candice Chavez [...] 2013; uses medical marijuana from dispensary in [place] for apetitie stimulant, anxiety/depression, and pain relief. Smokes 2 cigs QD Recovering alcoholic--heavy until 2009--reports occ. lapses, but last time was 2014; substance abuse with previous IVDA-none since 2014; uses medical marijuana from dispensary in [place] for apetitie stimulant, anxiety/depression, and pain relief. Smokes 2 cigs QD. Recovering alcoholic--heavy until 2009--reports occ. lapses, but last time was 2014; substance abuse with previous IVDA-none since 2014; uses medical marijuana from dispensary in [place] for apetitie stimulant, anxiety/depression, and pain relief. Smokes 2 cigs QD. Problems Problem Type SNOMED Code ICD Code Onset Dates Problem Status W/U Status Risk Notes Problem 939909259 Colon cancer screening (Z12.11) Active confirmed Problem Diverticular disease of colon (229832941) Diverticulosis of large intestine without perforation or abscess without bleeding (K57.30) Active confirmed Problem 490593111 Elevated liver function tests (R79.89) Active confirmed Problem Chronic gastritis (4212733) Gastritis, chronic (K29.50) Active confirmed Problem 17384128 Erosive esophagitis (K22.10) Active confirmed Problem Gastritis (1192638) Gastritis (K29.70) Active confirmed Problem 188564595 Abnormal CT scan , esophagus (R93.3) Active confirmed Problem 793250063 Idiopathic acute pancreatitis without infection or necrosis (K85.00) Active confirmed Problem Gastroesophageal reflux disease with esophagitis (disorder) (555005706) Gastro-esophageal reflux disease with esophagitis, without bleeding (K21.00) Active confirmed Encounters Encounter Location Date Provider Diagnosis [facility] Outpatient [address] [place] [phone] 02/04/2024 Hank Stanford Plan Of Treatment Pending [...] Medicaid [address] [place] [id number] GRAHAM MCINTOSH Self - patient is the insured MEDICAID OF [facility] [address] [place] [address] [id number] GRAHAM MCINTOSH Self - patient is the insured Medical (General) History Medical History History ICD Code IDDM--has an Insulin pump Denies DE,CVA,Lung disease,renal disease Anxiety/Depression/PTSD Arthritis Substance and alcohol [...]
--- OUTSIDE RECORDS SUMMARY | 2025-01-25 19:41 | XMS_ITS ---
Author Organization [facility] Address [address] [place] [address] Care Team Providers Care Side Stapler Name Role Phone Neida DUNAWAY, Linda Primary Care Provider Hank Corral [phone] REASON FOR VISIT erosive esophagitis Encounters Encounter Location Date Provider Diagnosis [facility] Outpatient [address] [place] [id number] 11/16/2023 Hank Stanford Other specified di sease [...] GRAHAM MCINTOSH TDOB: [birth year] (49 yo M)Acc No.[id number]:11/16/2023 EGD/MAC Patient:?GRAHAM MCINTOSH Provider:?Hank Stanford MD :1975???Age:48 Y???Sex:Male Irwin e:11/16/2023 Address:[address] [place], [place] [id number] Pcp:Linda Carrasquillo NP Subjective: * Chief Complaints: * ???1. Erosive esophagitis. * Medical History:? Objective: * Vitals:? Assessment: * Assessment: 1.?Other specified disease o f esophagus - K22.89 (Primary)???2.?Gastritis - K29.70???3.?Hiatal hernia - K44.9???4.?Erosive esophagitis - K22.10??? Plan: * Treatment: * Procedure Codes:?95145 UPPER GI ENDOSCOPY, BIOPSY * * The named appointment provid er may or may not be the originator of this progress note, and it is not deemed complete until electronically signed by the appointment provider. Sign off status: Pending * Provider:?Hank Stanford MD Date:? 024 Generated for Rahel lieberman/Chema/Addiitting on:?01/25/2025 07:41 PM EDT
--- OUTSIDE RECORDS SUMMARY | 2025-01-25 19:42 | XMS_ITS | Clinical Summary ---
Author Organization [facility], Address [address] [place] [address] [place] [address] Phone Care Team Providers Care Grounds Foreman Name Role Phone Niru Crawford Primary Care Provider [phone] Allergies Active Allergy Reactions Criticality Noted Date [...] Visit [facility] [place], [address] [place] [place] [address] Juan Yee MD Proteinuria, not otherwise specified (Primary Dx) 11/04/2024 Telephone [facility] [place], [address] [place] [address] Shalini Hooper MA from Last 3 Months Immunizations Immunization Administration Dates Next Due Influenza (IM) Preservative Free 09/18/2016,07/12 Influenza, Injectable, Madin Mims Canine Kidney, Preservative Free 09/01/2013 Influenza, MDCK, [...] [facility] [address] [place] [phone] Juan Yee MD [address] [place] [address] [place] [address] Health Maintenance Due Date Last Done Comments Hepatitis B Vaccine (1 of 3 - 19+ 3-dose series) 1993 Diabetes: Hemoglobin A1C 09/30/2023 Diabetes: Ophthalmology Exam 09/30/2023 Diabetes: Pedal Pulse Checked 09/30/2023 Diabetes: Sensory Foot Exam 09/30/2023 Diabetes: Visual Foot Exam 09/30/2023 Colorectal Cancer Screening: Annual FOBT 2023 Colorectal Cancer Screening: Colonoscopy 2023 Colorectal Cancer Screening: Sigmoidoscopy 2023 Pneumococcal Vaccine: 50+ Ye ars (4 of 4 - PCV20 or PCV21) 2024 09/22/2019, 09/04/2010, 08/18/2008 Pneumococcal Vaccine: Peds ( 0 to 5 Years) and At-Risk Patients (6 to 49 Years) Discontinued 09/22/2019, 09/04/2010, 08/18/2008 Influenza Vaccine Completed 07/20/2024, , 08/09/2022, Additional history exists Insurance [facility] Care Teams Grounds Foreman Relationship Specialty Start Date End Date Niru Crawford [address] [place] [id number] PCP - General 11/08/24
[2025-01-25] MEDS: Midazolam HCl 5 MG/ML VIAL 2.5 MG IM (20:07)
[2025-01-25] MEDS: Haloperidol Lactate 5 MG/ML VIAL IM (20:08)
--- NOTE | 2025-01-25 20:10 | PC.NURSE ---
provider at bedside, pt agitated, yelling at staff. pt has now apologized for his behavior and is requesting IM medication to help him calm down. pt medicated per DEC. no IV access, sitter at bedside. pt calmly asked for ice and food, items provided per requested
[2025-01-25 20:39] VITALS: BP 135/62; PULSE 96; RESP 14; O2SAT 100
--- NOTE | 2025-01-25 20:52 | PC.NURSE ---
reported given to pod. pt resting comfortably at this time
[2025-01-26] VITALS (9 sets, daily range): BP systolic 155–210; BP diastolic 80–110; PULSE 85–96; RESP 14–16; TEMP 36.1–37; O2SAT 98–99
--- NOTE | 2025-01-26 04:25 | PC.NURSE ---
pt resting comfortably throughout the night, no apparent distress noted, breathing even and unlabored.
[2025-01-26 07:35] LABS: Appearance Urine Clear; Color Urine Yellow; Glucose Urine UA Negative (Negative); Leukocyte Esterase Urine Negative (Negative); Nitrite Urine Negative (Negative); UMIC TRIGGER UA YES; Urine Blood Small (1+) (Negative); Urine Ketones Trace mg/dL (Negative); Urine Protein 30 (1+) mg/dL (Neg-Trace)
[2025-01-26 07:48] LABS: Bacteria Urine None Seen (None Seen); Hyaline Casts Urine 0-2 /LPF (0-2); Squamous Epithelial Cell Urine 0-2 /HPF (0-2); WBC Urine 0-5 /HPF (0-5)
--- NOTE | 2025-01-26 09:23 | MHC.CARE ---
T/w, with CARE team, meets with patient in the ED hallway to inquiry into ways the CARE team can help/ support patient. Specifically if he is looking for detox/ [facility] resources or MH resources. During inquiry patient shares that he recently relapsed. He states that he had four shots last night and admits to becoming somewhat belligerent. He resides with his mother. She called EMS, he assumes because she was worried. He denies SI/ HI and denies hx of suicide attempts. He shares that he has been involved in OP with [facility] for quite some time, seeing a therapist, Naila, every other week and psychiatrist Dr Mesa every three months for one medication which he reports that he is compliant with. He shares he attends AA meetings, and has been involved in the recovery community since 1998. He reports his sleep is fair, contingent upon what he describes as nerves. Has had periods of insomnia. Denies concerns with appetite, denies any recent IPLOC admissions, denies feelings of hopelessness/ worthlessness and is requesting to leave. Given what is described as minimal risk to self/ others and the bulk of any possible risk being related to his etoh use, Dr. Olvera agrees that patient can be discharged. Patient declines any resources/ referrals at this time.
[2025-01-26] MEDS: LORazepam 1 MG TABLET 2 MG PO (11:19)
[2025-01-26] MEDS: cloNIDine HCL 0.1 MG TABLET PO (11:19)
--- NOTE | 2025-01-26 11:23 | PC.NURSE ---
This RN went to d/c patient, vss updated - noted to be hypertensive, no prior hx of HTN per pt, CIWA 5. provider notified, medicated per MAR for withdrawal symptoms. plan to recheck vss for bp and discharge if WNL.
--- NOTE | 2025-01-26 13:14 | MHC.EDTECH ---
This pct reported to the nurse elevated bp rechecked twice in the last hour-hour and a half, the bp remains high RN Aware
[2025-01-26] MEDS: amLODIPine Besylate 10 MG TABLET PO (13:28)
== END 2025-01-26 14:55 | disposition home or self-care (01) ==
PROVIDERS: Emergency Provider Emergency Medicine
DX: F10.120 Alcohol abuse with intoxication, uncomplicated (principal); Y90.8 Blood alcohol level of 240 mg/100 ml or more; F91.8 Other conduct disorders; E10.9 Type 1 diabetes mellitus without complications; I10 Essential (primary) hypertension; J44.9 Chronic obstructive pulmonary disease, unspecified; F19.10 Other psychoactive substance abuse, uncomplicated; F17.210 Nicotine dependence, cigarettes, uncomplicated; Z79.4 Long term (current) use of insulin; Z96.41 Presence of insulin pump (external) (internal); Z79.899 Other long term (current) drug therapy
CPT/HCPCS: 36415; 80053; 80143; 80179; 80307; 81001; 83735; 84484; 85025; 93005; 96372; 99285; J1630; J2250; S9485

== ENCOUNTER → 2025-01-25 18:20 | Outpatient (BNV) | payer MEDICAID, SELFPAY | PROVIDERS: Emergency Provider Emergency Medicine; Visit Provider Internal Medicine Cardiovascular Disease | DX: R94.31 Abnormal electrocardiogram [ECG] [EKG] (principal); R07.9 Chest pain, unspecified | CPT/HCPCS: 93010 ==

== ENCOUNTER 2025-02-02 18:06 | Emergency (ER) | payer MEDICAID, SELFPAY ==
--- NOTE | ~2025-02-02 | CT_ITS ---
CLINICAL HISTORY: head injury CT head without contrast COMPARISON: CT/SR - CT HEAD/BRAIN WO IV CON - 10/21/24 20:01 EST FINDINGS: No acute intracranial hemorrhage, extra-axial fluid collection, mass effect, or midline shift. Ventricular system and basilar cisterns are patent. Patrick-white matter differentiation is maintained. No gross orbital abnormality. No suspicious or acute bone lesion. Mastoid air cells and paranasal sinuses are predominantly clear. IMPRESSION: 1. No acute intracranial abnormality. This document has been electronically signed by: Tony Cruz MD on 02/02/2025 21:20:03
--- NOTE | ~2025-02-02 | CT_ITS ---
CLINICAL HISTORY: trauma left sided pain CT chest without contrast Comparison: CT/SR - CT CHEST W IV CON - 10/21/24 20:05 EST Findings: Central airways, lungs, and pleural spaces are clear. Heart size normal. No pericardial effusion. No thoracic aortic aneurysm. No acute fracture. IMPRESSION: 1. No acute finding. This document has been electronically signed by: Tony Cruz MD on 02/02/2025 21:26:31
--- NOTE | ~2025-02-02 | CT_ITS ---
CLINICAL HISTORY: fall CT abdomen and pelvis without contrast Comparison: CT/OK/SR - CT ABDOMEN PELVIS W IV CON - 01/16/25 10:37 EDT Findings: No consolidation or effusion. Normal gallbladder and bile ducts. Stable hepatomegaly. Otherwise normal liver. Unremarkable pancreas, spleen, and adrenal glands. Normal kidneys, ureters, and urinary bladder. No free fluid or free air. Normal stomach, small bowel, appendix, and colon. No abdominal aortic aneurysm. No acute fracture. IMPRESSION: No acute findings. This document has been electronically signed by: Tony Cruz MD on 02/02/2025 21:24:22
--- NOTE | ~2025-02-02 | CT_ITS ---
CLINICAL HISTORY: fall CT cervical spine without contrast Comparison: CT/SR - CT CERVICAL SPINE WO IV CON - 10/21/24 20:01 EST Findings: Motion degraded exam. Multiple repeat sequences obtained, all motion degraded. Cervical vertebral body heights maintained. No traumatic listhesis, subluxation, or dislocation demonstrated. No acute fracture identified. Intervertebral disc spaces are congruent. Diffuse cahz-de-gimpexrn degenerative changes worst at C4-C5. No acute prevertebral or paraspinous soft tissue finding. Visualized portions of the lung apices are clear. IMPRESSION: 1. No CT evidence of acute traumatic cervical spine injury. This document has been electronically signed by: Tony Cruz MD on 02/02/2025 21:20:26
--- NOTE | 2025-02-02 18:20 | ECG_ITS ---
Test Reason : CP Blood Pressure : */* mmHG Vent. Rate : 100 BPM Atrial Rate : 100 BPM P-R Int : 176 ms QRS Dur : 98 ms QT Int : 368 ms P-R-T Axes : 108 117 120 degrees QTcB Int : 474 ms Suspect limb lead reversal, interpretation assumes no reversal Normal sinus rhythm Left posterior fascicular block Abnormal ECG When compared with ECG of 25-Jan-2025 18:20, Left posterior fascicular block is now Present Referred By: Generic ED Physician Electronically Signed By: PENNY GALEANA
[2025-02-02 18:21] VITALS: BP 149/77; BP 170/100; PULSE 102; PULSE 107; RESP 16; TEMP 36.3; O2SAT 100; O2SAT 98; BMI 23.4
--- OUTSIDE RECORDS SUMMARY | 2025-02-02 19:11 | XMS_ITS | Encounter Summary ---
Author Organization [facility] Address [address] [place] [address] Phone Care Team Providers Care Tree Killer Name Role Phone Niru Crawford Primary Care Provider [phone] Encounter Details Date Type Department Care Team (Late st Contact Info) Description 09/30/2023 Documentation Only [facility] [address] [place] [phone] Linda Carrasquillo NP Social History Tobacco Use [...] Visit [facility] [address] [place] [address] Juan Yee MD [address] [place] [address] [place] [phone] documented as of this encounter Visit Diagnoses Not on filedocumented in this encounter Care Teams Tree Killer Relationship Specialty Start Date End Date Niru Crawford [address] [facility] [address] PCP - General 11/08/24 documented as of this encounter
--- OUTSIDE RECORDS SUMMARY | 2025-02-02 19:12 | XMS_ITS | Clinical Summary ---
Author Organization [facility], Address [address] [place] [address] [place] [address] Phone Care Team Providers Care Adult Caregiver Name Role Phone Niru Crawford Primary Care Provider [phone] Allergies Active Allergy Reactions Criticality Noted Date [...] Visit [facility] [place], [address] [place] [address] [place] [address] Juan Yee MD Proteinuria, not otherwise specified (Primary Dx) 11/04/2024 Telephone [facility] [place], [address] [place] [address] [place] [address] Shalini Hooper MA from Last 3 Months Immunizations Immunization Administration Dates Next Due Influenza (IM) Preservative Free 09/18/2016,07/12 Influenza, Injectable, Madin Lind Canine Kidney, Preservative Free 09/01/2013 Influenza, MDCK, [...] Visit [facility] [address] [place] [phone] Juan Yee MD [address] [place] [address] [place] [address] Health Maintenance Due Date Last [...] 07/20/2024, , 08/09/2022, Additional history exists Insurance [facility] Care Teams Adult Caregiver Relationship Specialty Start Date End Date Niru Crawford [address] [place] [id number] PCP - General 11/08/24
--- NOTE | 2025-02-02 19:16 | ED_ITS ---
HPI - Fall General Chief Complaint: Fall Stated Complaint: fall down the stairs, etoh, chest pain, neck pain Time Seen by Provider: 02/02/25 18:30 History of Present Illness HPI Narrative: Patient is a 49-year-old male with a positive history of EtOH. Status post fall. Hitting his head. Patient denies loss of consciousness. From the street. Related Data Home Medications ?Medication ?Instructions ?Recorded ?Confirmed clonazepam 0.5 mg tablet 0.5 mg PO BEDTIME PRN Anxiety 07/16/21 01/16/25 albuterol sulfate 90 mcg/actuation 2 puff inhalation Q4H PRN 12/29/24 01/16/25 aerosol inhaler (Ventolin HFA) Respiratory Distress fluticasone 250 mcg-salmeterol 50 1 inh inhalation BID 12/29/24 01/16/25 mcg/dose blistr powdr for inhalation (Advair Diskus) subcutaneous insulin pump (Tandem 12/29/24 12/29/24 Mobi System) cholecalciferol (vitamin D3) 25 25 mcg PO DAILY 01/16/25 01/16/25 mcg (1,000 unit) tablet clonidine HCl 0.1 mg tablet 0.1 mg PO DAILY PRN Anxiety 01/16/25 01/16/25 cyanocobalamin (vitamin B-12) 1,000 mcg PO DAILY 01/16/25 01/16/25 1,000 mcg tablet (Vitamin B-12) glucagon 3 mg/actuation nasal 3 mg intranasal DAILY PRN 01/16/25 01/16/25 spray (Baqsimi) Hypoglycemia insulin lispro 100 unit/mL 10 - 35 unit subcut DAILY 01/16/25 01/16/25 subcutaneous solution vitamin B complex 1 tab PO DAILY 01/16/25 01/16/25 Previous Rx's ?Medication ?Instructions ?Recorded insulin syringe-needle U-100 0.3 #150 ea 08/29/20 mL 29 gauge x 1/2 (BD Insulin Syringe) pen needle, diabetic 32 gauge x #50 ea 08/29/20 5/32 (BD Felisha 2nd Gen Pen Needle) 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 meter (FreeStyle #1 ea 10/22/22 Lite Meter kit) blood sugar diagnostic (FreeStyle #300 ea 02/19/23 Lite Strips) lancets 28 gauge (FreeStyle #100 ea 02/19/23 Lancets) omeprazole 40 mg capsule,delayed 40 mg PO BID@0630,1630 #180 caps 02/06/24 release acetone (urine) test (Ketone Urine #25 ea 11/02/24 Test strips) cyclobenzaprine 5 mg tablet 5 mg PO TID PRN muscle spasm #30 01/01/25 tabs amlodipine 10 mg tablet 10 mg PO DAILY #90 tabs 01/19/25 omeprazole 40 mg capsule,delayed 40 mg PO DAILY #30 caps 01/19/25 release oxycodone 5 mg tablet 5 mg PO Q6H PRN Pain, Severe (Pain 01/19/25 Scale 7-10) #10 tabs Allergies Allergy/AdvReac Type Severity Reaction Status Date / Time hydroxyzine [From VISTARIL] Allergy Intermediate RASH, Verified 02/02/25 18:27 ANXIOUS quetiapine [Seroquel] AdvReac Intermediate Unknown Verified 02/02/25 18:27 [facility] Past Medical History Medical History Peripheral vascular disease Elevated liver function tests Polysubstance abuse Osteoarthritis Type 1 diabetes History of drug abuse Depression Vitamin D deficiency 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 Mother No problems noted. Social History Social History Household Members: Family Household Members Other:: mother Housing: House Do you presently have visiting nurse or other home services: No Alcohol intake: current Alcohol intake frequency: 3 or more drinks per day Alcohol type: hard liquor Patient Tobacco Use Status: Current someday Tobacco user Tobacco use type: Cigarette Cigarettes Per Day: 3 Years Smoked: 33 Smoked in Last 30 Days: No e-Cigarette/Vaping Use: Currently Using Second Hand Smoke Exposure: No Use of substances other than those prescribed or required for medical reasons: No Substance Use Type: Marijuana Advance Directives: Yes Advance Directives on File: Yes Advance Directives Date on File: 08/29/20 service: No Current occupational status: unemployed Physical Exam 2 Vital Signs: Vital Signs: Last Vital Signs Temp 98.3 F 02/03/25 00:51 Pulse 92 02/03/25 00:51 Resp 15 02/03/25 00:51 BP 120/66 02/03/25 00:51 Pulse Ox 96 02/03/25 00:51 O2 Del Method Room Air 02/03/25 00:51 BMI result Body Mass Index 23.4 Medications Administered Discontinued Medications Generic Name Dose Route Start Last Admin Trade Name Ethel PRN Reason Stop Dose Admin Acetaminophen 650 mg 02/02/25 19:22 02/02/25 19:30 Acetaminophen 325 Mg Tablet PO 02/02/25 19:23 Not Given ONCE ONE Diazepam 5 mg 02/02/25 21:08 02/02/25 21:16 Diazepam 10 Mg/2 Ml Cartridge IM 02/02/25 21:09 5 mg STAT STA Administration Diphenhydramine HCl 50 mg 02/02/25 21:07 02/02/25 21:16 Diphenhydramine Hcl 50 Mg/Ml Vial IM 02/02/25 21:08 50 mg ONCE ONE Administration Haloperidol Lactate 5 mg 02/02/25 20:35 02/02/25 20:42 Haloperidol Lactate 5 Mg/Ml Vial IM 02/02/25 20:36 5 mg ONCE ONE Administration Haloperidol Lactate 5 mg 02/02/25 21:07 02/02/25 21:16 Haloperidol Lactate 5 Mg/Ml Vial IM 02/02/25 21:08 5 mg ONCE ONE Administration Sodium Chloride 1,000 mls @ 999 mls/hr 02/02/25 19:15 02/02/25 22:13 Ns IV 02/02/25 20:15 Not Given .Q1H1M COUNTS INCLUDE 234 BEDS AT THE [facility] Medical Decision Making Medical Decision Making MDM Narrative: Patient is 49 years old presents today extremely agitated after drinking. He fell down some stairs. By chest abdomen pelvis was done. My interpretation CT head was negative. I reviewed radiology's reading of the CT scans they were all negative. My interpretation of patient's EKG shows a sinus rhythm heart rate is 100 HI QRS QTC normal no acute ST segment elevation patient's labs showed significant alcohol level of 394. He was angry agitated. We tried verbal deescalation to no avail. Patient's start cursing threatening staff. Expose his private parts to staff. He was given medication for sedation. Monitor closely then fell asleep. Prior to falling asleep patient made suicidal statements. Yelling and screaming and cursing. Care team consult was ordered. Patient is currently awaiting sobering. Differential Diagnosis Differential Diagnoses: The differential diagnosis associated with the presentation includes Alcohol intoxication, suicidal ideation Admission/Observation Consideration of admission/observation: Escalation of care including admission/observation considered Lab Data MDM Lab Attestation statement: I reviewed the patient's lab results. 02/02/25 19:43 02/02/25 19:43 Labs: Lab Results 02/02/25 02/02/25 Range/Units 19:43 22:08 WBC 7.8 (4.8-10.8) X10*3/uL RBC 3.47 L (4.60-5.80) X10*6/uL Hgb 12.8 L (14.0-18.0) g/dl Hct 34.5 L (42.0-52.0) % MCV 99.4 H (80.0-98.0) fL MCH 36.9 H (27.0-33.0) pg MCHC 37.1 H (31.0-36.0) g/dl RDW 12.8 (11.0-16.0) % Plt Count 145 L D (160-400) X10*3/uL MPV 9.5 (9.4-12.4) fL Immature Gran % (Auto) 0.3 (0.0-0.4) % Neut % (Auto) 52.3 (45-73) % Lymph % (Auto) 34.1 (20-40) % [place] % (Auto) 11.2 H (2-11) % Eos % (Auto) 1.2 (0-4) % Baso % (Auto) 0.9 (0-2) % Lymph # (Auto) 2.7 (1.2-4.9) X10*3/uL [place] # (Auto) 0.9 (0.1-1.2) X10*3/uL Eos # (Auto) 0.1 (0.0-0.4) X10*3/uL Baso # (Auto) 0.1 (0.0-0.2) X10*3/uL Abs Immat Gran (auto) 0.02 (0.00-0.03) X10*3/uL Absolute Neuts (auto) 4.1 (2.0-8.3) x10*3/uL Absolute Nucleated RBC 0.000 (0.0-0.012) X10*3/uL Nucleated RBC % (auto) 0.0 (0.0-0.2) /100WBC Sodium 140 (135-145) mmol/L Potassium 4.0 (3.3-5.1) mmol/L Chloride 107 (96-108) mmol/L Carbon Dioxide 23 (22-29) mmol/L Anion Gap 14 (12-20) BUN 14 (9-16) mg/dL Creatinine 0.94 (0.5-1.4) mg/dL Estim Creat Clear Calc 90.9 Estimated GFR > 60 POC Glucose 242 H (60-115) mg/dL Random Glucose 203 H (60-115) mg/dL Calcium 8.5 D (8.4-10.2) mg/dL Total Bilirubin 0.7 (0.0-1.0) mg/dL Direct Bilirubin 0.3 (0.0-0.5) mg/dL AST 85 H (5-37) U/L ALT 41 H (0-40) U/L Alkaline Phosphatase 126 H (39-117) U/L Total Protein 5.8 L (6.5-8.0) g/dL Albumin 3.4 L (3.5-5.0) g/dL Ethyl Alcohol 394 H* mg/dL Independent Interpretation I performed an independent interpretation of an: EKG (My interpretation patient's EKG as above) and CT Scan (CT head negative) Radiology Impression Discussion of test interpretation with radiology: I have reviewed the radiologist's reading. Independent Historian Clinical information obtained from an independent historian. History obtained from or confirmed by: EMS Social Determinants Patient?s care significantly limited by Social Determinants of Health including: Alcoholism and drug addiction in family, Problems related to primary support group and Unemployment Discharge Plan Discharge Clinical Impression: Alcohol intoxication, Head injury Prescriptions: No Action (DME) insulin syringe-needle U-100 [BD Insulin Syringe] 0.3 mL 29 gauge x 1/2 syringe See Rx Instructions .ROUTE .MEDSUPPLY Qty: 150 5RF Rx Instructions: 4 times a day (DME) pen needle, diabetic [BD Felisha 2nd Gen Pen Needle] 32 gauge x 5/32 needle See Rx Instructions .ROUTE .MEDSUPPLY Qty: 50 4RF Rx Instructions: once a day (DME) 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 meter [FreeStyle Lite Meter] Kit See Rx Instructions .Route Qty: 1 0RF Rx Instructions: As directed-checks 4 X/day (DME) Tandem Mobi System Misc MISCELLANEOUS Rx Instructions: UP TO 100 UNITS INSULIN LISPRO DAILY VIA PUMP fluticasone propion-salmeterol [Advair Diskus] 250-50 mcg/dose Blister With Device 1 inh INHALATION BID albuterol sulfate [Ventolin HFA] 90 mcg/actuation Hfa Aerosol Inhaler 2 puff INHALATION Q4H PRN (Reason: Respiratory Distress) cyclobenzaprine 5 mg tablet 5 mg PO TID PRN (Reason: muscle spasm) Qty: 30 0RF omeprazole 40 mg Capsule,Delayed Release(Dr/Ec) 40 mg PO BID@0630,1630 Qty: 180 0RF clonidine HCl 0.1 mg tablet 0.1 mg PO DAILY PRN (Reason: Anxiety) insulin lispro 100 unit/mL solution 10 - 35 unit subcut DAILY cholecalciferol (vitamin D3) 25 mcg (1,000 unit) tablet 25 mcg PO DAILY Baqsimi 3 mg/actuation spray,non-aerosol 3 mg intranasal DAILY PRN (Reason: Hypoglycemia) cyanocobalamin (vitamin B-12) [Vitamin B-12] 1,000 mcg Tablet 1,000 mcg PO DAILY vitamin B complex Tablet 1 tab PO DAILY amlodipine 10 mg Tablet 10 mg PO DAILY Qty: 90 0RF Protocol: Hold for SBP< HOLD for SBP < : 90 oxycodone 5 mg Tablet 5 mg PO Q6H PRN (Reason: Pain, Severe (Pain Scale 7-10)) Qty: 10 0RF Rx Instructions: Partial Fill upon patient request. omeprazole 40 mg capsule,delayed release(DR/EC) 40 mg PO DAILY Qty: 30 0RF clonazepam 0.5 mg tablet 0.5 mg PO BEDTIME PRN (Reason: Anxiety) Rx Instructions: AT BEDTIME (DME) FreeStyle Lite Strips Strip See Rx Instructions .ROUTE .MEDSUPPLY Qty: 300 11RF Rx Instructions: 4x daily (DME) lancets [FreeStyle Lancets] 28 gauge misc See Rx Instructions .Route Qty: 100 5RF Rx Instructions: As directed 4 X/day (DME) Ketone Urine Test Strip See Rx Instructions .ROUTE .MEDSUPPLY Qty: 25 1RF Rx Instructions: prn tid for nausea, vomiting, illness, glucose remaining over 250 Print Language: Japanese
[2025-02-02 19:36] VITALS: BP 142/94; PULSE 68; RESP 16; TEMP 36.2; O2SAT 96
--- NOTE | 2025-02-02 19:47 | MHC.EDTECH ---
This pct assumed care of Patient at 1900 ,vitals taken,blood drawn and sent to lab ,Patient very agitated ,and threaten and cursing at staff ,Security was at bedside .
[2025-02-02 19:49] LABS: MANUAL DIFF FLAG NO
[2025-02-02 19:52] LABS: Basophils Absolute Auto 0.1 X10*3/uL (0.0-0.2); Basophils Percent Auto 0.9 % (0-2); Eosinophils Absolute Auto 0.1 X10*3/uL (0.0-0.4); Eosinophils Percent Auto 1.2 % (0-4); Hematocrit 34.5 % (42.0-52.0); Hemoglobin 12.8 g/dl (14.0-18.0); Imm Gran Abs Auto 0.02 X10*3/uL (0.00-0.03); Imm Gran Pct Auto 0.3 % (0.0-0.4); Lymphocytes Absolute Auto 2.7 X10*3/uL (1.2-4.9); Lymphocytes Percent Auto 34.1 % (20-40); Mean Corpuscular HGB Conc 37.1 g/dl (31.0-36.0); Mean Corpuscular Hemoglobin 36.9 pg (27.0-33.0); Mean Corpuscular Volume 99.4 fL (80.0-98.0); Mean Platelet Volume 9.5 fL (9.4-12.4); Monocytes Absolute Auto 0.9 X10*3/uL (0.1-1.2); Monocytes Percent Auto 11.2 % (2-11); Neutrophils Absolute Auto 4.1 x10*3/uL (2.0-8.3); Neutrophils Percent Auto 52.3 % (45-73); Platelet Count 145 X10*3/uL (160-400); Red Blood Count 3.47 X10*6/uL (4.60-5.80); Red Cell Distribution Width 12.8 % (11.0-16.0); White Blood Count 7.8 X10*3/uL (4.8-10.8)
[2025-02-02 20:03] LABS: Ethanol 394 mg/dL
[2025-02-02 20:07] LABS: Alanine Aminotransferase 41 U/L (0-40); Albumin Level 3.4 g/dL (3.5-5.0); Alkaline Phosphatase 126 U/L (39-117); Anion Gap 14 (12-20); Aspartate Amino Transferase 85 U/L (5-37); Bilirubin Direct 0.3 mg/dL (0.0-0.5); Bilirubin Total 0.7 mg/dL (0.0-1.0); Blood Urea Nitrogen 14 mg/dL (9-16); Calcium 8.5 mg/dL (8.4-10.2); Carbon Dioxide 23 mmol/L (22-29); Chloride 107 mmol/L (96-108); Creatinine Clr Calc Pharmacy 90.9; Estimated Glomerular Filt Rate > 60; Glucose Random 203 mg/dL (60-115); Sodium 140 mmol/L (135-145); Total Protein 5.8 g/dL (6.5-8.0)
--- NOTE | 2025-02-02 20:26 | MHC.EDTECH ---
Patient stated si ,and was price changer into green gown ,Patient belongings list done ,Patient belongings are locked up in [facility] locker shelf 2.animal care provider and Provider aware of Patient si statement .
--- NOTE | 2025-02-02 20:30 | PC.NURSE ---
pt made SI statements. Command auditory hallucinations talking to someone else in bed, threatened to strike staff, stating he's being told to OD on a large dose of insulin. changed over by security, cooperative but protesting, yelling, complaining about staff/rules. glucose 246 per pump. personal insulin pump with belongings in [place]. juice offered, refused.
[2025-02-02] MEDS: Haloperidol Lactate 5 MG/ML VIAL IM ×2 (20:42→21:16)
--- NOTE | 2025-02-02 20:43 | PC.NURSE ---
continued to yell, threatening staff with violence, yell disruptive racist remarks, make SI statements, ambulating toward other patient areas.
[2025-02-02 20:57] VITALS: BP 140/76; PULSE 99; RESP 22; O2SAT 98
[2025-02-02] MEDS: diphenhydrAMINE HCL 50 MG/ML VIAL IM (21:16)
[2025-02-02] MEDS: diazePAM 10 MG/2 ML CARTRIDGE 5 MG IM (21:16)
[2025-02-02 21:20] VITALS: BP 138/68; PULSE 101; RESP 15; O2SAT 97
[2025-02-02] MEDS: 0.9 % Sodium Chloride 1,000 ML 999 ML IV (21:31)
[2025-02-02 22:00] VITALS: BP 128/52; PULSE 94; RESP 16; TEMP 36.8; O2SAT 95
[2025-02-02 22:16] LABS: Glucose, Whole Blood 242 mg/dL (60-115)
[2025-02-03 00:51] VITALS: BP 120/66; PULSE 92; RESP 15; TEMP 36.8; O2SAT 96
--- NOTE | 2025-02-03 00:52 | MHC.EDTECH ---
0000 rounding done ,mid night vitals taken ,Patient awake ,resting with eyes closed ,Pt void 1000 ml urine ,Patient Observer continue to be at bedside .
[2025-02-03 02:27] VITALS: BP 139/82; PULSE 98; RESP 16; TEMP 36.8; O2SAT 96
[2025-02-03 06:20] VITALS: BP 140/88; PULSE 116; RESP 16; TEMP 36.1; O2SAT 98
--- NOTE | 2025-02-03 07:25 | ECG_ITS ---
Test Reason : MED CLEARANCE Blood Pressure : */* mmHG Vent. Rate : 117 BPM Atrial Rate : 117 BPM P-R Int : 164 ms QRS Dur : 96 ms QT Int : 328 ms P-R-T Axes : 76 64 62 degrees QTcB Int : 457 ms Sinus tachycardia Otherwise normal ECG When compared with ECG of 02-Feb-2025 18:36, No significant change was found Referred By: Generic ED Physician Electronically Signed By: PENNY GALEANA
[2025-02-03] MEDS: Insulin Lispro 100 UNIT/ML 3 ML VIAL SUBCUT (07:52)
[2025-02-03] MEDS: LORazepam 1 MG TABLET 2 MG PO (07:52)
--- NOTE | 2025-02-03 07:54 | PC.NURSE ---
patient a&ox3, denies si/hi at this time 1:1 sitter at bedside due to previous statements, rr equal/non labored, ekg perfromed pt sinus tach,color television console monitor applied, ciwa performed scored 8, poc obtained, pt medicated for ciwa and poc. care team at bedside, call daniels within reach, plan of care ongoing
[2025-02-03 07:57] LABS: Glucose, Whole Blood 336 mg/dL (60-115)
[2025-02-03 09:48] VITALS: BP 170/94; PULSE 118; RESP 20; TEMP 36.6; O2SAT 98
--- NOTE | 2025-02-03 10:05 | MHC.CARE ---
Pt does not meet the criteria for a higher level or care and declined a referral to the recovery team. Pt will be discharged home. Provider in agreement.
== END 2025-02-03 09:49 | disposition home or self-care (01) ==
PROVIDERS: Emergency Provider Emergency Medicine Emergency Medical Services
DX: F10.920 Alcohol use, unspecified with intoxication, uncomplicated (principal); Y90.9 Presence of alcohol in blood, level not specified; S09.90XA Unspecified injury of head, initial encounter; W10.8XXA Fall (on) (from) other stairs and steps, initial encounter; R45.851 Suicidal ideations; R45.1 Restlessness and agitation; F19.10 Other psychoactive substance abuse, uncomplicated; E10.9 Type 1 diabetes mellitus without complications; F12.90 Cannabis use, unspecified, uncomplicated; F17.210 Nicotine dependence, cigarettes, uncomplicated; Z79.4 Long term (current) use of insulin; Z96.41 Presence of insulin pump (external) (internal); Y93.9 Activity, unspecified; Y92.9 Unspecified place or not applicable; Y99.9 Unspecified external cause status
CPT/HCPCS: 36415; 70450; 71250; 72125; 74176; 80048; 80076; 80307; 82947; 85025; 93005; 96360; 96372; 99285; J1200; J1630; J3360; S9485

== ENCOUNTER → 2025-02-02 18:20 | Outpatient (BNV) | payer MEDICAID, SELFPAY | PROVIDERS: Emergency Provider Emergency Medicine Emergency Medical Services; Visit Provider Internal Medicine | DX: R00.0 Tachycardia, unspecified (principal) | CPT/HCPCS: 93010 ==

== ENCOUNTER → 2025-02-02 19:14 | Outpatient (BNV) | payer MEDICAID, SELFPAY | PROVIDERS: Emergency Provider Emergency Medicine Emergency Medical Services; Visit Provider Radiology Diagnostic Radiology | DX: R07.89 Other chest pain (principal); M54.2 Cervicalgia; S09.90XA Unspecified injury of head, initial encounter; W19.XXXA Unspecified fall, initial encounter | CPT/HCPCS: 70450; 71250; 72125; 74176 ==

== ENCOUNTER → 2025-02-03 07:25 | Outpatient (BNV) | payer MEDICAID, SELFPAY | PROVIDERS: Emergency Provider Emergency Medicine Emergency Medical Services; Visit Provider Internal Medicine | DX: R00.0 Tachycardia, unspecified (principal) | CPT/HCPCS: 93010 ==

== ENCOUNTER 2025-02-10 01:31 | Emergency (ER) | payer MEDICAID, SELFPAY ==
[2025-02-10 01:42] VITALS: BP 172/89; PULSE 96; RESP 18; TEMP 36.7; O2SAT 100; BMI 22.3
[2025-02-10 02:04] LABS: MANUAL DIFF FLAG NO
[2025-02-10 02:05] LABS: Basophils Percent Auto 0.7 % (0-2); Eosinophils Absolute Auto 0.1 X10*3/uL (0.0-0.4); Hemoglobin 12.6 g/dl (14.0-18.0); Imm Gran Abs Auto 0.01 X10*3/uL (0.00-0.03); Imm Gran Pct Auto 0.2 % (0.0-0.4); Lymphocytes Absolute Auto 2.3 X10*3/uL (1.2-4.9); Lymphocytes Percent Auto 38.8 % (20-40); Mean Corpuscular Hemoglobin 36.1 pg (27.0-33.0); Mean Corpuscular Volume 100.3 fL (80.0-98.0); Mean Platelet Volume 9.5 fL (9.4-12.4); Monocytes Absolute Auto 0.7 X10*3/uL (0.1-1.2); Monocytes Percent Auto 11.1 % (2-11); Neutrophils Absolute Auto 2.8 x10*3/uL (2.0-8.3); Neutrophils Percent Auto 47.2 % (45-73); Platelet Count 149 X10*3/uL (160-400); Red Blood Count 3.49 X10*6/uL (4.60-5.80); Red Cell Distribution Width 13.2 % (11.0-16.0)
[2025-02-10 02:07] VITALS: BP 140/73; PULSE 90; RESP 18; TEMP 36.8; O2SAT 100
--- NOTE | 2025-02-10 02:12 | MHC.EDTECH ---
at this time this tech changed over the pt into a hospital gown and placed on cardiac care nurse, blood work was obtained in triage and sent to lab
--- NOTE | 2025-02-10 02:19 | ED_ITS ---
HPI - Alcohol General Chief Complaint: ETOH/Substance Use Stated Complaint: Treatment alcohol Time Seen by Provider: 02/10/25 02:01 Source: patient Mode of arrival: ambulatory Limitations: no limitations History of Present Illness ED Provider: HPI narrative: Patient's history of alcohol abuse been drinking heavy for last few weeks about 1 point of liquor and 12 beers for last 48 hours patient has decreased the amount feel shaky does not want to go to detox no nausea no vomiting last drink was about 12 hours ago Related Data Home Medications ?Medication ?Instructions ?Recorded ?Confirmed clonazepam 0.5 mg tablet 0.5 mg PO BEDTIME PRN Anxiety 07/16/21 01/16/25 albuterol sulfate 90 mcg/actuation 2 puff inhalation Q4H PRN 12/29/24 01/16/25 aerosol inhaler (Ventolin HFA) Respiratory Distress fluticasone 250 mcg-salmeterol 50 1 inh inhalation BID 12/29/24 01/16/25 mcg/dose blistr powdr for inhalation (Advair Diskus) subcutaneous insulin pump (Tandem 12/29/24 12/29/24 Mobi System) cholecalciferol (vitamin D3) 25 25 mcg PO DAILY 01/16/25 01/16/25 mcg (1,000 unit) tablet clonidine HCl 0.1 mg tablet 0.1 mg PO DAILY PRN Anxiety 01/16/25 01/16/25 cyanocobalamin (vitamin B-12) 1,000 mcg PO DAILY 01/16/25 01/16/25 1,000 mcg tablet (Vitamin B-12) glucagon 3 mg/actuation nasal 3 mg intranasal DAILY PRN 01/16/25 01/16/25 spray (Baqsimi) Hypoglycemia insulin lispro 100 unit/mL 10 - 35 unit subcut DAILY 01/16/25 01/16/25 subcutaneous solution vitamin B complex 1 tab PO DAILY 01/16/25 01/16/25 Previous Rx's ?Medication ?Instructions ?Recorded insulin syringe-needle U-100 0.3 #150 ea 08/29/20 mL 29 gauge x 1/2 (BD Insulin Syringe) pen needle, diabetic 32 gauge x #50 ea 08/29/20 5/32 (BD Felisha 2nd Gen Pen Needle) 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 meter (FreeStyle #1 ea 10/22/22 Lite Meter kit) blood sugar diagnostic (FreeStyle #300 ea 02/19/23 Lite Strips) lancets 28 gauge (FreeStyle #100 ea 02/19/23 Lancets) omeprazole 40 mg capsule,delayed 40 mg PO BID@0630,1630 #180 caps 02/06/24 release acetone (urine) test (Ketone Urine #25 ea 11/02/24 Test strips) cyclobenzaprine 5 mg tablet 5 mg PO TID PRN muscle spasm #30 01/01/25 tabs amlodipine 10 mg tablet 10 mg PO DAILY #90 tabs 01/19/25 omeprazole 40 mg capsule,delayed 40 mg PO DAILY #30 caps 01/19/25 release oxycodone 5 mg tablet 5 mg PO Q6H PRN Pain, Severe (Pain 01/19/25 Scale 7-10) #10 tabs chlordiazepoxide HCl 25 mg capsule 50 mg (2 x 25 mg) PO Q4H PRN 02/10/25 alcohol withdrawal 6 doses #12 caps Allergies Allergy/AdvReac Type Severity Reaction Status Date / Time hydroxyzine [From VISTARIL] Allergy Intermediate RASH, Verified 02/10/25 01:45 ANXIOUS quetiapine [Seroquel] AdvReac Intermediate Unknown Verified 02/10/25 01:45 Review of Systems 2 Review of Systems: Yes all other systems are reviewed and are negative [facility] Past Medical History Medical History Peripheral vascular disease Elevated liver function tests Polysubstance abuse Osteoarthritis Type 1 diabetes History of drug abuse Depression Vitamin D deficiency 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 Mother No problems noted. Social History Social History Household Members: Family Household Members Other:: mother Housing: House Do you presently have visiting nurse or other home services: No Alcohol intake: current Alcohol intake frequency: 3 or more drinks per day Alcohol type: hard liquor Patient Tobacco Use Status: Current someday Tobacco user Tobacco use type: Cigarette Cigarettes Per Day: 3 Years Smoked: 33 e-Cigarette/Vaping Use: Currently Using Second Hand Smoke Exposure: No Substance Use Type: Marijuana Advance Directives: Yes Advance Directives on File: Yes Advance Directives Date on File: 08/29/20 Do you have a plan to hurt others: No Plan service: No Current occupational status: unemployed Physical Exam ED Vital Signs: Vital Signs - 24 hr 02/10/25 01:42 02/10/25 02:07 02/10/25 04:07 Temperature 98.1 F 98.2 F 97.9 F Pulse Rate 96 90 86 Respiratory Rate 18 18 24 H Blood Pressure 172/89 H 140/73 H Pulse Oximetry 100 100 Oxygen Delivery Method Room Air Room Air BMI result Body Mass Index 22.3 Appearance: Alert. Oriented X3. No acute distress. Intoxicated Eyes: PERRLA, No Nystagmus ENT: Pharynx normal. Oral Mucosa moist Neck: Normal inspection. Neck supple. CVS: Normal heart rate and rhythm. Pulses normal. Respiratory: No respiratory distress. Equal air entry bilateral, no wheezing/rales/rhonchi Abdomen: Soft and nontender. Bowel sounds are present, no mass palpable, no CVA tenderness Skin: Skin warm and dry. Normal skin color. Normal skin turgor. Extremities: No lower extremity edema. No calf tenderness Neuro: Oriented X 3. No motor deficit. No sensory deficit.No cerebellar signs , cranial nerves II-XII intact Medical Decision Making Medical Decision Making MDM Narrative: Patient alcoholic with stable labs does not want to go to detox felt better after Librium will discharge patient home Lab Data [facility] Lab Attestation statement: I reviewed the patient's lab results. 02/10/25 01:59 02/10/25 01:59 Labs: Lab Results 02/10/25 02/10/25 Range/Units 01:59 02:56 WBC 6.0 (4.8-10.8) X10*3/uL RBC 3.49 L (4.60-5.80) X10*6/uL Hgb 12.6 L (14.0-18.0) g/dl Hct 35.0 L (42.0-52.0) % MCV 100.3 H (80.0-98.0) fL MCH 36.1 H (27.0-33.0) pg MCHC 36.0 (31.0-36.0) g/dl RDW 13.2 (11.0-16.0) % Plt Count 149 L (160-400) X10*3/uL MPV 9.5 (9.4-12.4) fL Immature Gran % (Auto) 0.2 (0.0-0.4) % Neut % (Auto) 47.2 (45-73) % Lymph % (Auto) 38.8 (20-40) % [place] % (Auto) 11.1 H (2-11) % Eos % (Auto) 2.0 (0-4) % Baso % (Auto) 0.7 (0-2) % Lymph # (Auto) 2.3 (1.2-4.9) X10*3/uL [place] # (Auto) 0.7 (0.1-1.2) X10*3/uL Eos # (Auto) 0.1 (0.0-0.4) X10*3/uL Baso # (Auto) 0.0 (0.0-0.2) X10*3/uL Abs Immat Gran (auto) 0.01 (0.00-0.03) X10*3/uL Absolute Neuts (auto) 2.8 (2.0-8.3) x10*3/uL Absolute Nucleated RBC 0.000 (0.0-0.012) X10*3/uL Nucleated RBC % (auto) 0.0 (0.0-0.2) /100WBC Sodium 140 (135-145) mmol/L Potassium 4.1 (3.3-5.1) mmol/L Chloride 104 (96-108) mmol/L Carbon Dioxide 24 (22-29) mmol/L Anion Gap 16 (12-20) BUN 10 (9-16) mg/dL Creatinine 0.94 (0.5-1.4) mg/dL Estim Creat Clear Calc 96.5 Estimated GFR > 60 Random Glucose 336 H (60-115) mg/dL Calcium 8.7 (8.4-10.2) mg/dL Total Bilirubin 0.5 (0.0-1.0) mg/dL AST 89 H (5-37) U/L ALT 64 H (0-40) U/L Alkaline Phosphatase 184 H (39-117) U/L Total Protein 6.1 L (6.5-8.0) g/dL Albumin 3.6 (3.5-5.0) g/dL Urine Opiates Screen Not Detected (Not Detect) Ur Buprenorphine Scrn Not Detected (Not Detect) ng/mL Ur Oxycodone Screen Not Detected (Not Detect) ng/mL Urine Methadone Screen Not Detected (Not Detect) ng/mL Urine Fentanyl Screen Not Detected (Not Detect) Ur Barbiturates Screen Not Detected (Not Detect) Ur Phencyclidine Scrn Not Detected (Not Detect) Ur Amphetamines Screen Not Detected (Not Detect) U Benzodiazepines Scrn Not Detected (Not Detect) Urine Cocaine Screen Not Detected (Not Detect) U Marijuana (THC) Screen POSITIVE H (Not Detect) Ethyl Alcohol 339 H* mg/dL Medications Administered Discontinued Medications Generic Name Dose Route Start Last Admin Trade Name Freq PRN Reason Stop Dose Admin Lorazepam 2 mg 02/10/25 02:31 02/10/25 03:36 Lorazepam 1 Mg Tablet PO 02/10/25 02:32 2 mg ONCE ONE Administration Discharge Plan Discharge Clinical Impression: Alcohol withdrawal syndrome Patient Disposition: Home, Self-Care Instructions: Alcohol Withdrawal (DC) Additional Instructions: Stop drinking alcohol Drink plenty of fluids Take Librium as prescribed for withdrawal Follow up with detox or come back to the ER if not better Prescriptions: New chlordiazepoxide HCl 25 mg capsule 50 mg PO Q4H PRN (Reason: alcohol withdrawal) Qty: 12 0RF Rx Instructions: until symptoms controlled No Action (DME) insulin syringe-needle U-100 [BD Insulin Syringe] 0.3 mL 29 gauge x 1/2 syringe See Rx Instructions .ROUTE .MEDSUPPLY Qty: 150 5RF Rx Instructions: 4 times a day (DME) pen needle, diabetic [BD Felisha 2nd Gen Pen Needle] 32 gauge x 5/32 needle See Rx Instructions .ROUTE .MEDSUPPLY Qty: 50 4RF Rx Instructions: once a day (DME) 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 meter [FreeStyle Lite Meter] Kit See Rx Instructions .Route Qty: 1 0RF Rx Instructions: As directed-checks 4 X/day (DME) Tandem Mobi System Misc MISCELLANEOUS Rx Instructions: UP TO 100 UNITS INSULIN LISPRO DAILY VIA PUMP fluticasone propion-salmeterol [Advair Diskus] 250-50 mcg/dose Blister With Device 1 inh INHALATION BID albuterol sulfate [Ventolin HFA] 90 mcg/actuation Hfa Aerosol Inhaler 2 puff INHALATION Q4H PRN (Reason: Respiratory Distress) cyclobenzaprine 5 mg tablet 5 mg PO TID PRN (Reason: muscle spasm) Qty: 30 0RF omeprazole 40 mg Capsule,Delayed Release(Dr/Ec) 40 mg PO BID@0630,1630 Qty: 180 0RF clonidine HCl 0.1 mg tablet 0.1 mg PO DAILY PRN (Reason: Anxiety) insulin lispro 100 unit/mL solution 10 - 35 unit subcut DAILY cholecalciferol (vitamin D3) 25 mcg (1,000 unit) tablet 25 mcg PO DAILY Baqsimi 3 mg/actuation spray,non-aerosol 3 mg intranasal DAILY PRN (Reason: Hypoglycemia) cyanocobalamin (vitamin B-12) [Vitamin B-12] 1,000 mcg Tablet 1,000 mcg PO DAILY vitamin B complex Tablet 1 tab PO DAILY amlodipine 10 mg Tablet 10 mg PO DAILY Qty: 90 0RF Protocol: Hold for SBP< HOLD for SBP < : 90 oxycodone 5 mg Tablet 5 mg PO Q6H PRN (Reason: Pain, Severe (Pain Scale 7-10)) Qty: 10 0RF Rx Instructions: Partial Fill upon patient request. omeprazole 40 mg capsule,delayed release(DR/EC) 40 mg PO DAILY Qty: 30 0RF clonazepam 0.5 mg tablet 0.5 mg PO BEDTIME PRN (Reason: Anxiety) Rx Instructions: AT BEDTIME (DME) FreeStyle Lite Strips Strip See Rx Instructions .ROUTE .MEDSUPPLY Qty: 300 11RF Rx Instructions: 4x daily (DME) lancets [FreeStyle Lancets] 28 gauge misc See Rx Instructions .Route Qty: 100 5RF Rx Instructions: As directed 4 X/day (DME) Ketone Urine Test Strip See Rx Instructions .ROUTE .MEDSUPPLY Qty: 25 1RF Rx Instructions: prn tid for nausea, vomiting, illness, glucose remaining over 250 Print Language: Albanian
[2025-02-10 02:32] LABS: Alanine Aminotransferase 64 U/L (0-40); Albumin Level 3.6 g/dL (3.5-5.0); Alkaline Phosphatase 184 U/L (39-117); Anion Gap 16 (12-20); Aspartate Amino Transferase 89 U/L (5-37); Bilirubin Total 0.5 mg/dL (0.0-1.0); Blood Urea Nitrogen 10 mg/dL (9-16); Calcium 8.7 mg/dL (8.4-10.2); Carbon Dioxide 24 mmol/L (22-29); Chloride 104 mmol/L (96-108); Creatinine Clr Calc Pharmacy 96.5; Estimated Glomerular Filt Rate > 60; Ethanol 339 mg/dL; Glucose Random 336 mg/dL (60-115); Potassium 4.1 mmol/L (3.3-5.1); Sodium 140 mmol/L (135-145); Total Protein 6.1 g/dL (6.5-8.0)
--- OUTSIDE RECORDS SUMMARY | 2025-02-10 02:38 | XMS_ITS | Clinical Summary ---
Author Organization [facility], Address [address] [place] [address] [place] [address] Phone Care Team Providers Care Maintenance Planner Name Role Phone Niru Crawford Primary Care Provider Allergies Active Allergy Reactions Criticality Noted Date [...] itis 09/24/2017 Depressive disorder 09/24/2017 Anxiety 09/24/2017 Immunizations Immunization Administration Dates Next Due Influenza [...] Visit [facility], [address] [id number] Juan Yee MD [address] [place] [phone] Health Maintenance Due Date Last Done Comments [...] 07/20/2024, , 08/09/2022, Additional history exists Insurance [facility] Plan Care Teams Maintenance Planner Relationship Specialty Start Date End Date Niru Crawford [address] [place] [id number] PCP - General 11/08/24
[2025-02-10 03:17] LABS: Amphetamine Screen Urine Not Detected (Not Detect); Barbiturates, Urine Not Detected (Not Detect); Benzodiazepines Screen Urine Not Detected (Not Detect); Buprenorphine Scr Not Detected (Not Detect); Cannabinoid Screen Urine POSITIVE (Not Detect); Cocaine Screen Urine Not Detected (Not Detect); Fentanyl, urine Not Detected (Not Detect); Methadone Screen, Urine Not Detected (Not Detect); Opiate Screen Urine Not Detected (Not Detect); Oxycodone Screen Urine Not Detected (Not Detect); Phencyclidine Screen Urine Not Detected (Not Detect)
[2025-02-10] MEDS: LORazepam 1 MG TABLET 2 MG PO (03:36)
[2025-02-10 04:07] VITALS: PULSE 86; RESP 24; TEMP 36.6
[2025-02-10 07:00] VITALS: BP 138/77; PULSE 96; RESP 14; TEMP 36.8; O2SAT 100
--- NOTE | 2025-02-10 07:05 | PC.NURSE ---
ambulating steadily. pt pleasant, calm, cooperative
== END 2025-02-10 07:05 | disposition home or self-care (01) ==
PROVIDERS: Emergency Provider Internal Medicine
DX: F10.239 Alcohol dependence with withdrawal, unspecified (principal); Y90.8 Blood alcohol level of 240 mg/100 ml or more
CPT/HCPCS: 36415; 80053; 80307; 85025; 99284

== ENCOUNTER 2025-02-11 18:42 | Inpatient (IN) | payer MEDICAID, SELFPAY ==
--- NOTE | ~2025-02-11 | CT_ITS ---
CLINICAL HISTORY: right-sided abdominal pain CT abdomen and pelvis without contrast Comparison: CT of the abdomen and pelvis from 02/02/2025 Findings: Mild atelectasis. No obstructing stone in either ureter either kidney. No hydronephrosis. Mild adrenal hyperplasia. The spleen is nonenlarged. Moderate volume loss of the pancreas. Gallbladder is distended. Liver is unremarkable for noncontrast study with motion artifacts florecita hepatis, mesenteric, and periaortic nodes are nonspecific. These may be reactive. Small hiatal hernia. No small bowel obstruction. Severe stool burden, including the cecum. Appendix within normal limits (imaged 515 of series 4). No free intraperitoneal air. Prostate gland measures 4.1 cm transverse. Mild-moderate wall thickening of the urinary bladder is nonspecific and may be due to cystitis. Vascular calcifications noted. Moderate osteoarthritis of the both hips. Degenerative changes include facet arthropathy of the spine bilateral spondylolysis of the L5. Grade 1 anterolisthesis at L5-S1. Mild height loss of the T11 appears old and accentuated by Schmorl's nodes. IMPRESSION: 1. No obstructing stone in either kidney or either ureter. 2. Nonspecific wall thickening of the urinary bladder. 3. Severe stool burden. No small bowel obstruction. 4. The gallbladder is distended. This document has been electronically signed by: Fletcher Glez MD on 02/12/2025 01:22:32
[2025-02-11 18:51] VITALS: BP 152/82; PULSE 148; RESP 18; TEMP 37.1; O2SAT 100; BMI 20.2
--- NOTE | 2025-02-11 18:53 | ED_ITS ---
HPI - Back Pain/Injury General Chief Complaint: Back Pain/Injury Stated Complaint: back pain, spasms Time Seen by Provider: 02/11/25 19:09 Source: patient and family Mode of arrival: ambulatory Limitations: no limitations History of Present Illness ED Provider: DR. Cartagena HPI Narrative: 49-year-old male who sustained a fall on 02/02 was seen in the emergency department for the fall, had head/C-spine / abdomen and pelvis/ and chest CT with no acute injuries. Patient returned today for intractable vomiting since yesterday with severe low back pain all the way to the neck, patient is also complaining of abdominal pain with nausea and vomiting. No other sick contacts. Related Data Home Medications ?Medication ?Instructions ?Recorded ?Confirmed clonazepam 0.5 mg tablet 0.5 mg PO BEDTIME PRN Anxiety 07/16/21 01/16/25 albuterol sulfate 90 mcg/actuation 2 puff inhalation Q4H PRN 12/29/24 01/16/25 aerosol inhaler (Ventolin HFA) Respiratory Distress fluticasone 250 mcg-salmeterol 50 1 inh inhalation BID 12/29/24 01/16/25 mcg/dose blistr powdr for inhalation (Advair Diskus) subcutaneous insulin pump (Tandem 12/29/24 12/29/24 Mobi System) cholecalciferol (vitamin D3) 25 25 mcg PO DAILY 01/16/25 01/16/25 mcg (1,000 unit) tablet clonidine HCl 0.1 mg tablet 0.1 mg PO DAILY PRN Anxiety 01/16/25 01/16/25 cyanocobalamin (vitamin B-12) 1,000 mcg PO DAILY 01/16/25 01/16/25 1,000 mcg tablet (Vitamin B-12) glucagon 3 mg/actuation nasal 3 mg intranasal DAILY PRN 01/16/25 01/16/25 spray (Baqsimi) Hypoglycemia insulin lispro 100 unit/mL 10 - 35 unit subcut DAILY 01/16/25 01/16/25 subcutaneous solution vitamin B complex 1 tab PO DAILY 01/16/25 01/16/25 Previous Rx's ?Medication ?Instructions ?Recorded insulin syringe-needle U-100 0.3 #150 ea 08/29/20 mL 29 gauge x 1/2 (BD Insulin Syringe) pen needle, diabetic 32 gauge x #50 ea 08/29/20 (BD Felisha 2nd Gen Pen Needle) 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 meter (FreeStyle #1 ea 10/22/22 Lite Meter kit) blood sugar diagnostic (FreeStyle #300 ea 02/19/23 Lite Strips) lancets 28 gauge (FreeStyle #100 ea 02/19/23 Lancets) omeprazole 40 mg capsule,delayed 40 mg PO BID@0630,1630 #180 caps 02/06/24 release acetone (urine) test (Ketone Urine #25 ea 11/02/24 Test strips) cyclobenzaprine 5 mg tablet 5 mg PO TID PRN muscle spasm #30 01/01/25 tabs amlodipine 10 mg tablet 10 mg PO DAILY #90 tabs 01/19/25 omeprazole 40 mg capsule,delayed 40 mg PO DAILY #30 caps 01/19/25 release oxycodone 5 mg tablet 5 mg PO Q6H PRN Pain, Severe (Pain 01/19/25 Scale 7-10) #10 tabs chlordiazepoxide HCl 25 mg capsule 50 mg (2 x 25 mg) PO Q4H PRN 02/10/25 alcohol withdrawal 6 doses #12 caps Allergies Allergy/AdvReac Type Severity Reaction Status Date / Time hydroxyzine [From VISTARIL] Allergy Intermediate RASH, Verified 02/11/25 18:52 ANXIOUS quetiapine [Seroquel] AdvReac Intermediate Unknown Verified 02/11/25 18:52 Review of Systems 2 Review of Systems: All other systems are reviewed and are negative Constitutional: Reports as per HPI and Reports no additional constitutional complaints Eyes: Reports as per HPI and Reports no additional eye complaints Reports system reviewed and no additional complaints, except as documented Cardiovascular: Reports as per HPI and Reports no additional cardiovascular complaints Respiratory: Reports as per HPI and Reports no additional respiratory complaints Gastrointestinal: Reports as per HPI and Reports no additional gastrointestinal complaints Genitourinary: Reports no additional female genitourinary complaints Musculoskeletal: Reports no additional musculoskeletal complaints Skin/Breast: Reports system reviewed and no additional complaints, except as docu Psychiatric: Reports no additional psychiatric complaints Endocrine: Reports no additional endocrine complaints Hematologic/Lymphatic: Reports no additional hematologic/lymphatic complaints Allergic/Immunologic: Reports no additional allergic/immunologic complaints Reports system reviewed and no additional complaints, except as documented and Reports Abnormal speech present [facility] Past Medical History Medical History Peripheral vascular disease Elevated liver function tests Polysubstance abuse Osteoarthritis Type 1 diabetes History of drug abuse Depression Vitamin D deficiency 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 Mother No problems noted. Social History Social History Household Members: Family Household Members Other:: mother Housing: House Do you presently have visiting nurse or other home services: No Alcohol intake: current Alcohol intake frequency: 3 or more drinks per day Alcohol type: hard liquor Patient Tobacco Use Status: Current someday Tobacco user Tobacco use type: Cigarette Cigarettes Per Day: 3 Years Smoked: 33 Smoked in Last 30 Days: Yes e-Cigarette/Vaping Use: Currently Using Second Hand Smoke Exposure: No Use of substances other than those prescribed or required for medical reasons: No Substance Use Type: Marijuana Advance Directives: Yes Advance Directives on File: Yes Advance Directives Date on File: 08/29/20 service: No Current occupational status: unemployed Physical Exam 2 Vital Signs: Vital Signs: Last Vital Signs Temp 98.2 F 02/11/25 22:41 Pulse 100 02/12/25 00:56 Resp 19 02/12/25 00:56 BP 179/109 H 02/12/25 00:56 Pulse Ox 98 02/12/25 00:56 O2 Del Method Room Air 02/12/25 00:56 BMI result Body Mass Index 20.2 Vital signs have been reviewed and appear to be correct. Blood pressure elevated. Heart rate normal. Respiratory rate normal. Temperature normal. Oxygen saturation normal. Appearance: Alert. Oriented X3. No acute distress. Head: Normal external exam. Normocephalic. Atraumatic. No Jung signs noted. No raccoon eyes noted Eyes: PERRLA. EOMI. Conjunctiva and sclera normal. Eyelids normal. ENT: TM's Normal. Pharynx normal. Uvula midline. Moist mucous membranes. No trismus noted. No drooling noted. No muffled voice noted. Neck: Normal inspection. Neck supple. FROM. No adenopathy. Thyroid Normal. No meningeal signs. No neck mass noted. CVS: Normal heart rate and rhythm. Heart sound normal. No murmurs noted. Pulses normal throughout. Respiratory: No respiratory distress. Painless inspiration. Breath sounds normal. No wheezes/rales/rhonchi noted. Chest nontender. No accessory muscle usage noted or decreased air movement noted. Abdomen: Soft and nontender. Bowel sounds normal in all 4 quadrants. No distention noted. No organomegaly noted. No visible injury noted. Back: No CVA tenderness. Full range of motion noted. Skin: Skin warm and dry. Normal skin color. Normal skin turgor. No rashes/lesions/lacerations noted. Extremities: No lower extremity edema. Extremities exhibit normal range of motion. Extremities nontender. Neuro: Oriented X 3. Cranial nerve exam: II-XII are grossly intact No motor deficit. No sensory deficit. Reflexes normal. Course Course Course Narrative: This is an RME performed by Ellen Hawkins CNP: Additional HPI, ROS, PE not included below will be deferred to primary provider. Patient is a 49 old male who presents emergency department for evaluation of back pain diffuse lower radiating into the right lower quadrant of the abdomen. Reports acute on chronic low back pain he has been experiencing nausea and vomiting. During triage he has noted to be tachycardic with pulse in the 140s. On review of the medical record, I see that patient was seen in the ED last night, he denies this to be true, stating he has not been here in at least 1 week. Plan: Serum labs, EKG, urinalysis Reevaluation(s) Reevaluation #1: alcohol withdrawal symptoms, intractable vomiting, dehydration. Patient received 3 L of IV hydration, multiple doses of anti emetic medication, started on phenobarb for possible alcohol withdrawal. intractable vomiting with dehydration and hypokalemia and hypomagnesemia. Will replete magnesium and potassium in the ED. CT abdomen and pelvis showed no acute intra-abdominal pathology. Time: 02:00 Medications Administered Generic Name Dose Route Start Last Admin Trade Name Freq PRN Reason Stop Dose Admin Magnesium Sulfate 2 gm in 50 mls @ 25 mls/hr 02/12/25 00:56 02/12/25 01:28 Magnesium Sulfate/H2o IV 02/12/25 02:55 25 mls/hr ONCE ONE Administration Potassium Chloride 10 meq in 100 mls @ 100 mls/hr 02/12/25 00:56 02/12/25 01:28 Potassium Chloride/H20 IV 02/12/25 01:55 100 mls/hr ONCE ONE Administration Discontinued Medications Generic Name Dose Route Start Last Admin Trade Name Marloq PRN Reason Stop Dose Admin Hydromorphone HCl 1 mg 02/11/25 21:01 02/11/25 21:08 Hydromorphone Hcl 1 Mg/Ml Syringe IVPUSH 02/11/25 21:02 1 mg ONCE ONE Administration Protocol Hydromorphone HCl 1 mg 02/11/25 22:58 02/11/25 23:08 Hydromorphone Hcl 1 Mg/Ml Syringe IVPUSH 02/11/25 22:59 1 mg ONCE ONE Administration Protocol Sodium Chloride 1,000 mls @ 999 mls/hr 02/11/25 19:39 02/11/25 20:59 Ns IV 02/11/25 20:39 Infused .Q1H1M ONE Infusion Lactated Ringer's 1,000 mls @ 999 mls/hr 02/11/25 21:00 02/11/25 22:38 Lr IV 02/11/25 22:00 Infused .Q1H1M ASHLEIGH Infusion Lactated Ringer's 1,000 mls @ 999 mls/hr 02/11/25 23:00 02/12/25 00:33 Lr IV 02/12/25 00:00 Infused .Q1H1M ASHLEIGH Infusion Ketorolac Tromethamine 15 mg 02/11/25 21:01 02/11/25 21:08 Ketorolac Tromethamine 15 Mg/Ml Vial IVPUSH 02/11/25 21:02 15 mg ONCE ONE Administration Ondansetron HCl 4 mg 02/11/25 19:39 02/11/25 19:46 Ondansetron Hcl 4 Mg/2 Ml Vial IVPUSH 02/11/25 19:40 4 mg ONCE ONE Administration Ondansetron HCl 4 mg 02/11/25 23:58 02/12/25 00:11 Ondansetron Hcl 4 Mg/2 Ml Vial IVPUSH 02/11/25 23:59 4 mg ONCE ONE Administration Phenobarbital Sodium 262 mg 02/12/25 00:45 02/12/25 00:53 Phenobarbital Sodium 130 Mg/Ml Im Once IM 02/12/25 00:46 262 mg ONCE ONE Administration Medical Decision Making Differential Diagnosis Differential Diagnoses: The differential diagnosis associated with the presentation includes ( Alcohol was room, colitis, acute pancreatitis, diverticulitis, dehydration, electrolyte derangement, severe anemia.) Admission/Observation Consideration of admission/observation: Escalation of care including admission/observation considered Lab Data MDM Lab Attestation statement: I reviewed the patient's lab results. 02/12/25 00:20 02/12/25 00:20 Labs: Lab Results 02/11/25 02/11/25 02/12/25 Range/Units 19:18 21:10 00:20 WBC 18.1 H 15.9 H (4.8-10.8) X10*3/uL RBC 4.34 L D 3.48 L (4.60-5.80) X10*6/uL Hgb 15.6 D 12.8 L (14.0-18.0) g/dl Hct 43.5 D 35.7 L (42.0-52.0) % MCV 100.2 H 102.6 H (80.0-98.0) fL MCH 35.9 H 36.8 H (27.0-33.0) pg MCHC 35.9 35.9 (31.0-36.0) g/dl RDW 13.4 13.6 (11.0-16.0) % Plt Count 249 D 151 L D (160-400) X10*3/uL MPV 9.6 9.8 (9.4-12.4) fL Immature Gran % (Auto) 0.4 0.4 (0.0-0.4) % Neut % (Auto) 84.0 H 82.6 H (45-73) % Lymph % (Auto) 8.4 L 7.7 L (20-40) % Mcintosh % (Auto) 7.1 9.2 (2-11) % Eos % (Auto) 0.0 0.0 (0-4) % Baso % (Auto) 0.1 0.1 (0-2) % Lymph # (Auto) 1.5 1.2 (1.2-4.9) X10*3/uL Mcintosh # (Auto) 1.3 H 1.5 H (0.1-1.2) X10*3/uL Eos # (Auto) 0.0 0.0 (0.0-0.4) X10*3/uL Baso # (Auto) 0.0 0.0 (0.0-0.2) X10*3/uL Abs Immat Gran (auto) 0.08 H 0.07 H (0.00-0.03) X10*3/uL Absolute Neuts (auto) 15.2 H 13.1 H (2.0-8.3) x10*3/uL Absolute Nucleated RBC 0.000 0.000 (0.0-0.012) X10*3/uL Nucleated RBC % (auto) 0.0 0.0 (0.0-0.2) /100WBC Sodium 145 (135-145) mmol/L Potassium 3.1 L D (3.3-5.1) mmol/L Chloride 96 (96-108) mmol/L Carbon Dioxide 36 H (22-29) mmol/L Anion Gap 16 (12-20) BUN 14 (9-16) mg/dL Creatinine 1.14 (0.5-1.4) mg/dL Estim Creat Clear Calc 71.9 Estimated GFR > 60 Random Glucose 144 H (60-115) mg/dL Calcium 8.9 (8.4-10.2) mg/dL Magnesium 1.7 1.5 L (1.6-2.6) mg/dL Total Bilirubin 1.2 H (0.0-1.0) mg/dL Direct Bilirubin 0.5 (0.0-0.5) mg/dL AST 59 H (5-37) U/L ALT 46 H (0-40) U/L Alkaline Phosphatase 163 H (39-117) U/L Total Protein 6.1 L (6.5-8.0) g/dL Albumin 3.6 (3.5-5.0) g/dL Lipase 6 L 4 L (8-78) U/L Procalcitonin 0.06 ng/mL Urine Color Dark Yellow Urine Appearance Clear Urine pH >= 9.0 (5.0-9.0) Ur Specific [place] 1.020 (1.005-1.025) Urine Protein 300 (3+) H (Neg-Trace) mg/dL Urine Glucose (UA) Negative (Negative) mg/dL Urine Ketones Trace (Negative) mg/dL Urine Blood Trace H (Negative) Urine Nitrite Negative (Negative) Ur Leukocyte Esterase Trace H (Negative) Urine RBC >20 H (0-2) /HPF Urine WBC 0-5 (0-5) /HPF Ur Squamous Epith Cells 0-2 (0-2) /HPF Urine Bacteria None Seen (None Seen) Hyaline Casts 3-5 (0-2) /LPF Urine Opiates Screen Not Detected (Not Detect) Ur Buprenorphine Scrn Not Detected (Not Detect) ng/mL Ur Oxycodone Screen Not Detected (Not Detect) ng/mL Urine Methadone Screen Not Detected (Not Detect) ng/mL Urine Fentanyl Screen Not Detected (Not Detect) Ur Barbiturates Screen Not Detected (Not Detect) Ur Phencyclidine Scrn Not Detected (Not Detect) Ur Amphetamines Screen Not Detected (Not Detect) U Benzodiazepines Scrn POSITIVE H (Not Detect) Urine Cocaine Screen Not Detected (Not Detect) U Marijuana (THC) Screen POSITIVE H (Not Detect) Ethyl Alcohol < 10 mg/dL Influenza Type A (PCR) NEGATIVE (Negative) Influenza Type B (PCR) NEGATIVE (Negative) RSV RNA Qual (PCR) NEGATIVE (Negative) SARS-CoV-2 RNA (RT-PCR) NEGATIVE (Negative) Independent Interpretation I performed an independent interpretation of an: CT Scan Radiology Impression Discussion of test interpretation with radiology: I have reviewed the radiologist's reading. Discharge Plan Discharge Clinical Impression: Alcohol withdrawal, Intractable vomiting, Dehydration, Hypomagnesemia, Acute hypokalemia Patient Disposition: Admitted As Inpatient Print Language: Telugu
--- NOTE | 2025-02-11 18:56 | ECG_ITS ---
Test Reason : tachycardia Blood Pressure : */* mmHG Vent. Rate : 143 BPM Atrial Rate : 143 BPM P-R Int : 118 ms QRS Dur : 78 ms QT Int : 346 ms P-R-T Axes : 61 88 74 degrees QTcB Int : 533 ms Sinus tachycardia Prolonged QT When compared with ECG of 03-Feb-2025 07:39, QRS voltage has increased Referred By: Niru Hawkins Electronically Signed By: PENNY GALEANA
[2025-02-11 19:16] VITALS: BP 152/82; PULSE 132; RESP 23; TEMP 37.1; O2SAT 100
[2025-02-11 19:23] LABS: MANUAL DIFF FLAG NO
[2025-02-11 19:24] LABS: Basophils Percent Auto 0.1 % (0-2); Hematocrit 43.5 % (42.0-52.0); Hemoglobin 15.6 g/dl (14.0-18.0); Imm Gran Abs Auto 0.08 X10*3/uL (0.00-0.03); Imm Gran Pct Auto 0.4 % (0.0-0.4); Lymphocytes Absolute Auto 1.5 X10*3/uL (1.2-4.9); Lymphocytes Percent Auto 8.4 % (20-40); Mean Corpuscular HGB Conc 35.9 g/dl (31.0-36.0); Mean Corpuscular Hemoglobin 35.9 pg (27.0-33.0); Mean Corpuscular Volume 100.2 fL (80.0-98.0); Mean Platelet Volume 9.6 fL (9.4-12.4); Monocytes Absolute Auto 1.3 X10*3/uL (0.1-1.2); Monocytes Percent Auto 7.1 % (2-11); Neutrophils Absolute Auto 15.2 x10*3/uL (2.0-8.3); Platelet Count 249 X10*3/uL (160-400); Red Blood Count 4.34 X10*6/uL (4.60-5.80); Red Cell Distribution Width 13.4 % (11.0-16.0); White Blood Count 18.1 X10*3/uL (4.8-10.8)
[2025-02-11 19:38] LABS: Ethanol < 10 mg/dL; Lipase 6 U/L (8-78); Magnesium 1.7 mg/dL (1.6-2.6)
[2025-02-11] MEDS: ondansetron HCL 4 MG/2 ML VIAL IVPUSH (19:46)
[2025-02-11] MEDS: 0.9 % Sodium Chloride 1,000 ML 999 ML IV (19:47)
[2025-02-11 19:48] VITALS: BP 141/89; PULSE 114; RESP 12; O2SAT 98
[2025-02-11 20:00] LABS: Influenza A PCR NEGATIVE (Negative); Influenza B PCR NEGATIVE (Negative); Resp Syncy Virus RNA Qual PCR NEGATIVE (Negative); SARS COV2 PCR INHOUSE NEGATIVE (Negative)
[2025-02-11 20:58] VITALS: BP 158/94; PULSE 108; RESP 12; TEMP 36.7; O2SAT 98
[2025-02-11] MEDS: Lactated Ringers 1,000 ML 999 ML IV ×2 (21:00→23:07)
[2025-02-11] MEDS: Ketorolac Tromethamine 15 MG/ML VIAL IVPUSH (21:08)
[2025-02-11] MEDS: HYDROmorphone HCl 1 MG/ML SYRINGE IVPUSH ×2 (21:08→23:08)
[2025-02-11 21:18] LABS: Appearance Urine Clear; Color Urine Dark Yellow; Glucose Urine UA Negative (Negative); Leukocyte Esterase Urine Trace (Negative); Nitrite Urine Negative (Negative); PH >= 9.0 (5.0-9.0); UMIC TRIGGER UACC YES; Urine Blood Trace (Negative); Urine Ketones Trace mg/dL (Negative); Urine Protein 300 (3+) mg/dL (Neg-Trace)
[2025-02-11 21:23] LABS: Bacteria Urine None Seen (None Seen); RBC Urine >20 /HPF (0-2); Squamous Epithelial Cell Urine 0-2 /HPF (0-2); WBC Urine 0-5 /HPF (0-5)
[2025-02-11 21:30] LABS: Amphetamine Screen Urine Not Detected (Not Detect); Barbiturates, Urine Not Detected (Not Detect); Benzodiazepines Screen Urine POSITIVE (Not Detect); Buprenorphine Scr Not Detected (Not Detect); Cannabinoid Screen Urine POSITIVE (Not Detect); Cocaine Screen Urine Not Detected (Not Detect); Fentanyl, urine Not Detected (Not Detect); Methadone Screen, Urine Not Detected (Not Detect); Opiate Screen Urine Not Detected (Not Detect); Oxycodone Screen Urine Not Detected (Not Detect); Phencyclidine Screen Urine Not Detected (Not Detect)
[2025-02-11 22:01] VITALS: BP 181/86; PULSE 111; RESP 16; TEMP 36.9; O2SAT 98
[2025-02-11 22:41] VITALS: BP 165/103; PULSE 105; RESP 17; TEMP 36.8; O2SAT 97
[2025-02-12] VITALS (9 sets, daily range): BP systolic 146–181; BP diastolic 79–109; PULSE 84–108; RESP 14–19; TEMP 36.4–37.2; O2SAT 96–100; BMI 22.1
[2025-02-12] MEDS: ondansetron HCL 4 MG/2 ML VIAL IVPUSH (00:11)
[2025-02-12 00:24] LABS: MANUAL DIFF FLAG NO
--- NOTE | 2025-02-12 00:24 | MHC.EDTECH ---
This tech took over care of pt at 2300,rounded and introduced self to pt, vitals taken by RN, labs drawn and sent to lab,call daniels in reach
[2025-02-12 00:26] LABS: Basophils Percent Auto 0.1 % (0-2); Hematocrit 35.7 % (42.0-52.0); Hemoglobin 12.8 g/dl (14.0-18.0); Imm Gran Abs Auto 0.07 X10*3/uL (0.00-0.03); Imm Gran Pct Auto 0.4 % (0.0-0.4); Lymphocytes Absolute Auto 1.2 X10*3/uL (1.2-4.9); Lymphocytes Percent Auto 7.7 % (20-40); Mean Corpuscular HGB Conc 35.9 g/dl (31.0-36.0); Mean Corpuscular Hemoglobin 36.8 pg (27.0-33.0); Mean Corpuscular Volume 102.6 fL (80.0-98.0); Mean Platelet Volume 9.8 fL (9.4-12.4); Monocytes Absolute Auto 1.5 X10*3/uL (0.1-1.2); Monocytes Percent Auto 9.2 % (2-11); Neutrophils Absolute Auto 13.1 x10*3/uL (2.0-8.3); Neutrophils Percent Auto 82.6 % (45-73); Platelet Count 151 X10*3/uL (160-400); Red Blood Count 3.48 X10*6/uL (4.60-5.80); Red Cell Distribution Width 13.6 % (11.0-16.0); White Blood Count 15.9 X10*3/uL (4.8-10.8)
[2025-02-12 00:52] LABS: Alanine Aminotransferase 46 U/L (0-40); Albumin Level 3.6 g/dL (3.5-5.0); Alkaline Phosphatase 163 U/L (39-117); Anion Gap 16 (12-20); Aspartate Amino Transferase 59 U/L (5-37); Bilirubin Direct 0.5 mg/dL (0.0-0.5); Bilirubin Total 1.2 mg/dL (0.0-1.0); Blood Urea Nitrogen 14 mg/dL (9-16); Calcium 8.9 mg/dL (8.4-10.2); Carbon Dioxide 36 mmol/L (22-29); Chloride 96 mmol/L (96-108); Creatinine Clr Calc Pharmacy 71.9; Estimated Glomerular Filt Rate > 60; Glucose Random 144 mg/dL (60-115); Lipase 4 U/L (8-78); Magnesium 1.5 mg/dL (1.6-2.6); Potassium 3.1 mmol/L (3.3-5.1); Sodium 145 mmol/L (135-145); Total Protein 6.1 g/dL (6.5-8.0)
[2025-02-12] MEDS: PHENobarbitaL sodium 130 MG/ML IM ONCE 262 MG IM (00:53)
[2025-02-12 01:04] LABS: Procalcitonin 0.06 ng/mL
[2025-02-12] MEDS: Magnesium Sulfate/H2O 2 GM/50 ML PIGGYBACK IV (01:28)
[2025-02-12] MEDS: Potassium Chloride/H20 10 MEQ/100 ML PIGGYBACK 100 MEQ IV (01:28)
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
[2025-02-12] MEDS: Sennosides 8.6 MG TABLET 17.2 MG PO ×2 (03:16→20:09)
[2025-02-12] MEDS: bisacodyL 10 MG SUPP.RECT PR (03:18)
[2025-02-12] MEDS: cefTRIAXone sodium 1 GM VIAL IVPUSH ×2 (03:26→21:00)
[2025-02-12] MEDS: Ketorolac Tromethamine 15 MG/ML VIAL IVPUSH ×2 (03:27→10:34)
[2025-02-12] MEDS: dexAMETHasone sod phosphate 10 MG/ML VIAL IVPUSH (03:27)
[2025-02-12] MEDS: KCl 20 mEq in 0.45% Sod 20 MEQ/1,000 ML IV.SOLN 100 MEQ IVCONT (03:32)
[2025-02-12] MEDS: PHENobarbitaL sodium 130 MG/ML VIAL IM Q3Hx2 197 MG IM ×2 (03:36→08:11)
[2025-02-12] MEDS: Acetaminophen 325 MG TABLET 975 MG PO ×3 (05:17→21:48)
[2025-02-12 05:31] LABS: MANUAL DIFF FLAG NO
[2025-02-12 05:37] LABS: Basophils Percent Auto 0.2 % (0-2); Eosinophils Percent Auto 0.1 % (0-4); Hematocrit 33.3 % (42.0-52.0); Hemoglobin 11.7 g/dl (14.0-18.0); Imm Gran Abs Auto 0.07 X10*3/uL (0.00-0.03); Imm Gran Pct Auto 0.5 % (0.0-0.4); Lymphocytes Absolute Auto 0.8 X10*3/uL (1.2-4.9); Lymphocytes Percent Auto 5.3 % (20-40); Mean Corpuscular HGB Conc 35.1 g/dl (31.0-36.0); Mean Corpuscular Hemoglobin 36.7 pg (27.0-33.0); Mean Corpuscular Volume 104.4 fL (80.0-98.0); Mean Platelet Volume 10.3 fL (9.4-12.4); Monocytes Absolute Auto 0.8 X10*3/uL (0.1-1.2); Monocytes Percent Auto 5.5 % (2-11); Neutrophils Absolute Auto 13.1 x10*3/uL (2.0-8.3); Neutrophils Percent Auto 88.4 % (45-73); Platelet Count 128 X10*3/uL (160-400); Red Blood Count 3.19 X10*6/uL (4.60-5.80); Red Cell Distribution Width 13.4 % (11.0-16.0); White Blood Count 14.8 X10*3/uL (4.8-10.8)
[2025-02-12 06:00] LABS: Alanine Aminotransferase 42 U/L (0-40); Albumin Level 3.3 g/dL (3.5-5.0); Alkaline Phosphatase 143 U/L (39-117); Anion Gap 13 (12-20); Aspartate Amino Transferase 53 U/L (5-37); Bilirubin Total 0.8 mg/dL (0.0-1.0); Blood Urea Nitrogen 16 mg/dL (9-16); Calcium 8.4 mg/dL (8.4-10.2); Carbon Dioxide 38 mmol/L (22-29); Chloride 95 mmol/L (96-108); Creatinine Clr Calc Pharmacy 66.6; Estimated Glomerular Filt Rate > 60; Glucose Random 190 mg/dL (60-115); Potassium 3.5 mmol/L (3.3-5.1); Sodium 142 mmol/L (135-145); Total Protein 5.5 g/dL (6.5-8.0)
--- NOTE | 2025-02-12 07:56 | PC.NURSE ---
Patients blood sugar using meter 174, covered himself using insulin pump with 5 units. Declined any further sliding scale insulin to be administered
[2025-02-12] MEDS: Magnesium Oxide 400 MG TABLET PO (08:11)
[2025-02-12] MEDS: Thiamine HCL 100 MG TABLET PO (08:11)
[2025-02-12] MEDS: Folic Acid 1 MG TABLET PO (08:11)
[2025-02-12] MEDS: Potassium Chloride ER 20 MEQ TAB.ER.PRT PO (08:11)
[2025-02-12] MEDS: Enoxaparin Sodium 40 MG/0.4 ML SYRINGE SUBCUT (08:11)
[2025-02-12] MEDS: polyethylene glycoL 3350 17 GM POWD.PACK PO (08:11)
--- NOTE | 2025-02-12 09:28 | PHA.MEDREC ---
Addendum entered by Kae Waite RPh 02/12/25 11:13: [facility] REVIEWED Original Note: Pharmacy Consult ? Medication Reconciliation Pharmacy has completed the medication reconciliation. Spoke to pt to confirm meds. Per pt, no longer taking oxycodone PRN. Also reports taking Advair PRN and Flexeril TID PRN.
[2025-02-12 12:31] LABS: Glucose, Whole Blood 148 mg/dL (60-115)
[2025-02-12] MEDS: traMADoL HCL 50 MG TABLET 25 MG PO ×2 (13:00→20:09)
[2025-02-12] MEDS: methocarbamoL 500 MG TABLET PO ×2 (13:00→20:41)
--- NOTE | 2025-02-12 14:00 | PC.NURSE ---
Pt arrived to room 376 from ED @ 1200. Reporting 8/10 pain to lower back. Nothing PRN due for pain. EVELIA White notified. New orders for Tramadol and Robaxin. Given with good effect. Hot pack also given. Pt has own insulin pump with humalog insulin. Basal rate 1.2u/hr. Extra vial of insulin and supplies stored in patient specific bin.
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
[2025-02-12 16:27] LABS: Glucose, Whole Blood 94 mg/dL (60-115)
[2025-02-12] MEDS: 0.9 % Sodium Chloride Flush 3 ML SYRINGE IVFLUSH ×2 (16:41→21:49)
[2025-02-12] MEDS: PHENobarbitaL 15 MG TABLET 45 MG PO (16:41)
[2025-02-12] MEDS: Omeprazole 40 MG CAPSULE.DR PO (16:41)
[2025-02-12 19:57] LABS: Glucose, Whole Blood 156 mg/dL (60-115)
[2025-02-13 03:34] VITALS: BP 157/88; PULSE 87; RESP 16; TEMP 37; O2SAT 99
[2025-02-13] MEDS: PHENobarbitaL 15 MG TABLET 45 MG PO ×2 (03:48→15:22)
[2025-02-13] MEDS: traMADoL HCL 50 MG TABLET 25 MG PO ×2 (03:49→15:21)
[2025-02-13] MEDS: Acetaminophen 325 MG TABLET 975 MG PO ×3 (06:12→21:05)
[2025-02-13] MEDS: Omeprazole 40 MG CAPSULE.DR PO ×2 (06:12→16:41)
[2025-02-13 07:01] LABS: Anion Gap 9 (12-20); Blood Urea Nitrogen 15 mg/dL (9-16); Calcium 8.3 mg/dL (8.4-10.2); Carbon Dioxide 34 mmol/L (22-29); Chloride 99 mmol/L (96-108); Creatinine Clr Calc Pharmacy 77.5; Estimated Glomerular Filt Rate > 60; Glucose Random 145 mg/dL (60-115); Potassium 3.2 mmol/L (3.3-5.1); Sodium 139 mmol/L (135-145)
[2025-02-13 07:06] LABS: Hematocrit 32.1 % (42.0-52.0); Hemoglobin 11.7 g/dl (14.0-18.0); Mean Corpuscular HGB Conc 36.4 g/dl (31.0-36.0); Mean Corpuscular Hemoglobin 36.6 pg (27.0-33.0); Mean Corpuscular Volume 100.3 fL (80.0-98.0); Mean Platelet Volume 10.4 fL (9.4-12.4); Red Cell Distribution Width 13.2 % (11.0-16.0)
[2025-02-13 07:11] LABS: Platelet Count 98 X10*3/uL (160-400)
[2025-02-13 07:15] VITALS: BP 152/89; PULSE 83; RESP 16; TEMP 36; O2SAT 97
[2025-02-13 07:25] LABS: Glucose, Whole Blood 144 mg/dL (60-115)
[2025-02-13] MEDS: Milk of Magnesia 30 ML ORAL.SUSP PO (08:02)
[2025-02-13] MEDS: Cyanocobalamin (Vitamin B-12) 1,000 MCG TABLET 1000 MCG PO (08:03)
[2025-02-13] MEDS: polyethylene glycoL 3350 17 GM POWD.PACK PO (08:03)
[2025-02-13] MEDS: amLODIPine Besylate 10 MG TABLET PO (08:04)
[2025-02-13] MEDS: methocarbamoL 500 MG TABLET PO (08:04)
[2025-02-13] MEDS: Thiamine HCL 100 MG TABLET PO (08:04)
[2025-02-13] MEDS: Folic Acid 1 MG TABLET PO (08:04)
[2025-02-13] MEDS: Magnesium Oxide 400 MG TABLET PO (08:04)
[2025-02-13] MEDS: Potassium Chloride ER 20 MEQ TAB.ER.PRT PO (08:04)
[2025-02-13] MEDS: Multivitamin TABLET 1 TAB PO (08:05)
[2025-02-13] MEDS: Enoxaparin Sodium 40 MG/0.4 ML SYRINGE SUBCUT (08:06)
[2025-02-13] MEDS: Potassium Chloride ER 20 MEQ TAB.ER.PRT 40 MEQ PO (08:43)
[2025-02-13] MEDS: 0.9 % Sodium Chloride Flush 3 ML SYRINGE IVFLUSH ×3 (08:45→21:06)
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
[2025-02-13 11:48] VITALS: BP 143/74; PULSE 86; RESP 16; TEMP 36.6; O2SAT 95
[2025-02-13 11:50] LABS: Glucose, Whole Blood 134 mg/dL (60-115)
[2025-02-13 16:00] VITALS: BP 162/85; PULSE 85; RESP 18; TEMP 36.7; O2SAT 98
--- NOTE | 2025-02-13 16:02 | MHC.CM.PN ---
PT REPORTS HE LIVES WITH HIS MOTHER AND IS INDEPENDENT WITH CARE HE HAS NO SERVICES AND ONLY AN INSULIN PUMP FOR DME HCP ON FILE PCP: JESSE HASSAN DCP: HOME NO SERVICES VIA PRIVATE TRANSPORT
[2025-02-13 16:34] LABS: Glucose, Whole Blood 119 mg/dL (60-115)
[2025-02-13 20:00] VITALS: BP 166/86; PULSE 99; RESP 18; TEMP 35.9; O2SAT 99
[2025-02-13 20:27] LABS: Glucose, Whole Blood 168 mg/dL (60-115)
[2025-02-13] MEDS: Sennosides 8.6 MG TABLET 17.2 MG PO (21:05)
[2025-02-13] MEDS: clonazePAM 0.5 MG TABLET PO (21:05)
[2025-02-13 23:19] VITALS: BP 174/86; PULSE 86; RESP 18; TEMP 36; O2SAT 100
--- NOTE | 2025-02-14 02:49 | CONS_ITS ---
DATE OF SERVICE: 02/13/2025 REFERRING PHYSICIAN: Yodit Hooper NP REASON FOR CONSULTATION: Epigastric pain. HISTORY OF PRESENT ILLNESS: The patient is a pleasant 49-year-old man, who was admitted to the hospital after presenting to the emergency room on February 12 with complaints of vomiting and low back pain. He has a history of chronic low back pain and developed spasms, which causes nausea, vomiting, and some epigastric discomfort. This has happened to him on multiple occasions because of the vomiting. He becomes dehydrated and presented to the emergency room, where he was admitted to the hospital. Evaluation in the emergency department includes laboratory studies which are reviewed. This showed a white count of 15.9 and a potassium of 3.1 which was repleted. Liver function tests, which have been chronically elevated, were again in the same range. Imaging studies were undertaken with CT scanning which showed stool burden that was described as severe gallbladder distention and nonspecific wall thickening in the urinary bladder. He does have a history of fatty liver in the past and alcohol abuse. He also has a history of erosive esophagitis and was last seen for an endoscopy in January 2024, which showed multiple areas of ulceration and erosions consistent with erosive esophagitis. Previous studies had been similar and he did have 1 that showed healing. He has been treated with proton pump inhibitors at high doses with Prilosec 40 mg b.i.d., which he states compliance with. He denies recent substance use and a tox screen obtained in the emergency department was remarkable for benzodiazepines and marijuana. PAST MEDICAL HISTORY: 1. Erosive esophagitis. 2. Diabetes mellitus, on insulin pump therapy. 3. Anxiety/depression/PTSD. 4. Arthritis. 5. Substance abuse. 6. Fatty liver. 7. Colonoscopy 2022. 8. Hyperplastic polyps. CURRENT MEDICATIONS: His current medication list is reviewed in the chart. ALLERGIES: HYDROXYZINE AND SEROQUEL. FAMILY HISTORY: This is reviewed with the patient and is noncontributory. SOCIAL HISTORY: He does use marijuana. He denies other substance use. REVIEW OF SYSTEMS: SKIN: No pruritus. HEENT: Negative. CARDIOPULMONARY: No shortness of breath or chest pain. GASTROINTESTINAL: As above. There has been no hematemesis. GENITOURINARY: Negative. NEUROPSYCHIATRIC: Negative. PHYSICAL EXAMINATION: GENERAL: Shows a pleasant male, sitting comfortably in bed, asking for Dilaudid. VITAL SIGNS: Stable. SKIN: Anicteric. HEENT: Shows no scleral icterus. NECK: Without lymphadenopathy or thyromegaly. LUNGS: Clear heart shows regular rate and rhythm. S1, S2. No murmur. ABDOMEN: Soft without focal masses or tenderness. Bowel sounds are present. No organomegaly is noted. EXTREMITIES: Without edema. LABORATORY DATA AND IMAGING STUDIES: Reviewed. IMPRESSION: Nausea and vomiting, possible causes for this include back pain as described. It is also possible he could have hyperemesis from cannabis use. We discussed this today. There likely is a component of erosive esophagitis based on his previous presentations, which is likely due to the vomiting. I stressed the need for compliance with his proton pump inhibitor therapy and I would continue to treat him supportively with IV fluids, as needed proton pump inhibitor treatment and antiemetics. I would gradually advance his diet. I do not think he needs endoscopy at this time and he can follow up as an outpatient with Dr. Stanford. Thanks for asking me to see him. I will follow him in the hospital with you. MD JONATHAN Tim/SUNDAR / [id number] MTDD
[2025-02-14 03:17] VITALS: BP 140/81; PULSE 100; RESP 17; TEMP 36.4; O2SAT 99
[2025-02-14] MEDS: PHENobarbitaL 15 MG TABLET 45 MG PO (03:20)
[2025-02-14] MEDS: Acetaminophen 325 MG TABLET 975 MG PO ×2 (05:49→13:55)
[2025-02-14] MEDS: Omeprazole 40 MG CAPSULE.DR PO (05:50)
[2025-02-14] MEDS: methocarbamoL 500 MG TABLET PO (05:52)
[2025-02-14 07:17] VITALS: BP 167/86; PULSE 96; RESP 16; TEMP 36; O2SAT 97
[2025-02-14 07:23] LABS: Glucose, Whole Blood 168 mg/dL (60-115)
[2025-02-14] MEDS: Potassium Chloride ER 20 MEQ TAB.ER.PRT PO (08:03)
[2025-02-14] MEDS: Cyanocobalamin (Vitamin B-12) 1,000 MCG TABLET 1000 MCG PO (08:04)
[2025-02-14] MEDS: amLODIPine Besylate 10 MG TABLET PO (08:04)
[2025-02-14] MEDS: traMADoL HCL 50 MG TABLET 25 MG PO (08:04)
[2025-02-14] MEDS: Multivitamin TABLET 1 TAB PO (08:04)
[2025-02-14] MEDS: Folic Acid 1 MG TABLET PO (08:04)
[2025-02-14] MEDS: Thiamine HCL 100 MG TABLET PO (08:04)
[2025-02-14] MEDS: Magnesium Oxide 400 MG TABLET PO (08:04)
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
[2025-02-14] MEDS: 0.9 % Sodium Chloride Flush 3 ML SYRINGE IVFLUSH (08:06)
[2025-02-14] MEDS: Enoxaparin Sodium 40 MG/0.4 ML SYRINGE SUBCUT (08:08)
[2025-02-14] MEDS: Magnesium Citrate 300 ML SOLUTION PO (08:42)
[2025-02-14] MEDS: Ketorolac Tromethamine 30 MG/ML VIAL IVPUSH (08:43)
[2025-02-14] MEDS: HYDROmorphone HCl 0.5 MG/0.5 ML SYRINGE IVPUSH ×2 (08:43→13:55)
[2025-02-14 08:58] LABS: Anion Gap 12 (12-20); Blood Urea Nitrogen 12 mg/dL (9-16); Calcium 8.8 mg/dL (8.4-10.2); Carbon Dioxide 30 mmol/L (22-29); Chloride 96 mmol/L (96-108); Creatinine Clr Calc Pharmacy 97.8; Estimated Glomerular Filt Rate > 60; Glucose Random 157 mg/dL (60-115); Potassium 4.2 mmol/L (3.3-5.1); Sodium 134 mmol/L (135-145)
[2025-02-14 11:10] LABS: Glucose, Whole Blood 149 mg/dL (60-115)
[2025-02-14 11:35] VITALS: BP 142/86; PULSE 98; RESP 16; TEMP 36.3; O2SAT 100
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
--- NOTE | 2025-02-14 14:56 | MHC.CM.PN ---
pt dcd home self care
== END 2025-02-14 16:00 | disposition home or self-care (01) | DRG 775 ==
LOC: HO.ED 02-12 00:02 → HO.EDOVER 02-12 01:36 → HO.S3 02-12 10:44
PROVIDERS: Nurse Practitioner Family; Physician Assistant Medical; Admitting Provider Student in an Organized Health Care Education/Training Program; Emergency Provider Emergency Medicine; Visit Provider Nurse Practitioner Acute Care
DX: F10.139 Alcohol abuse with withdrawal, unspecified (principal); K74.60 Unspecified cirrhosis of liver; D69.59 Other secondary thrombocytopenia; K22.10 Ulcer of esophagus without bleeding; R62.7 Adult failure to thrive; M54.9 Dorsalgia, unspecified; G89.29 Other chronic pain; K76.0 Fatty (change of) liver, not elsewhere classified; F17.210 Nicotine dependence, cigarettes, uncomplicated; F31.9 Bipolar disorder, unspecified; E86.0 Dehydration; E87.6 Hypokalemia; E83.42 Hypomagnesemia; Z96.41 Presence of insulin pump (external) (internal); Z20.822 Contact with and (suspected) exposure to COVID-19; Z79.899 Other long term (current) drug therapy
CPT/HCPCS: 0241U; 36415; 74176; 80048; 80053; 80076; 80307; 81001; 82947; 83690; 83735; 84145; 85025; 85027; 93005; 99285; J0696; J1100; J1171; J1650; J1885; J2405; J2560; J3475; J3480; J7120; S9485

== ENCOUNTER → 2025-02-11 18:56 | Outpatient (BNV) | payer MEDICAID, SELFPAY | PROVIDERS: Admitting Provider Student in an Organized Health Care Education/Training Program; Emergency Provider Emergency Medicine; Visit Provider Internal Medicine | DX: R00.0 Tachycardia, unspecified (principal) | CPT/HCPCS: 93010 ==

== ENCOUNTER → 2025-02-12 00:06 | Outpatient (BNV) | payer MEDICAID, SELFPAY | PROVIDERS: Admitting Provider Student in an Organized Health Care Education/Training Program; Emergency Provider Emergency Medicine; Visit Provider Radiology Neuroradiology | DX: N32.89 Other specified disorders of bladder (principal); K56.41 Fecal impaction | CPT/HCPCS: 74176 ==

== ENCOUNTER → 2025-02-12 01:34 | Outpatient (BNV) | payer MEDICAID, SELFPAY | PROVIDERS: Admitting Provider Student in an Organized Health Care Education/Training Program; Emergency Provider Emergency Medicine; Visit Provider Nurse Practitioner Family | DX: F10.939 Alcohol use, unspecified with withdrawal, unspecified (principal) | CPT/HCPCS: 99222; 99232; 99239; 99499 ==

== ENCOUNTER 2025-03-04 01:17 | Emergency (ER) | payer MEDICAID, SELFPAY ==
[2025-03-04 01:18] VITALS: BP 156/83; PULSE 100; RESP 15; TEMP 36.9; O2SAT 100; BMI 22.6
[2025-03-04 04:25] VITALS: BP 125/73; PULSE 92; RESP 16; TEMP 36.8; O2SAT 97
[2025-03-04 06:16] VITALS: BP 132/87; PULSE 97; RESP 18; O2SAT 97
--- NOTE | 2025-03-04 07:17 | PC.NURSE ---
assumed care of pt at 0700, vss, continues to report back pain/spams. pt pending provider cook pickled meat.
[2025-03-04 07:58] LABS: Glucose, Whole Blood 118 mg/dL (60-115)
--- NOTE | 2025-03-04 08:05 | PC.NURSE ---
pt reports that he is a T1DM, POC 118, diabetic diet ordered.
[2025-03-04 08:11] VITALS: BP 129/77; PULSE 99; RESP 14; TEMP 36.1; O2SAT 100
[2025-03-04] MEDS: Ketorolac Tromethamine 30 MG/ML VIAL IM (08:39)
[2025-03-04] MEDS: Cyclobenzaprine HCl 10 MG TABLET PO (08:39)
--- NOTE | 2025-03-04 08:39 | ED.BACK ---
HPI - Back Pain/Injury General Chief Complaint: Back Pain/Injury Stated Complaint: back pain Time Seen by Provider: 03/04/25 08:07 Source: patient, RN notes reviewed and old records reviewed Mode of arrival: ambulatory History of Present Illness ED Provider: Stella Dixon PA-C HPI Narrative: 49-year-old male with a past medical history polysubstance abuse (remission from x10yrs), osteoarthritis, diabetes, depression, presenting to the ED complaining of acute on chronic right-sided lower back pain radiating down RLE with associated paresthesias since midnight last night. Admits went to see a band with friends and was dancing and feel this exacerbated his acute on chronic back pain. States he currently is seeing PT for back pain and takes Tylenol/muscle relaxers at home without relief. Denies direct injury, trauma, fall, weakness, incontinence, retention, abdominal pain, nausea/ vomiting, hematuria/dysuria Related Data Home Medications ?Medication ?Instructions ?Recorded ?Confirmed clonazepam 0.5 mg tablet 0.5 mg PO BEDTIME PRN Anxiety 07/16/21 02/12/25 albuterol sulfate 90 mcg/actuation 2 puff inhalation Q4H PRN 12/29/24 02/12/25 aerosol inhaler (Ventolin HFA) Respiratory Distress fluticasone 250 mcg-salmeterol 50 1 inh inhalation BID PRN Shortness 12/29/24 02/12/25 mcg/dose blistr powdr for Of Breath Or Wheezing inhalation (Advair Diskus) subcutaneous insulin pump (Tandem 12/29/24 02/12/25 Mobi System) cholecalciferol (vitamin D3) 25 25 mcg PO DAILY 01/16/25 02/12/25 mcg (1,000 unit) tablet clonidine HCl 0.1 mg tablet 0.1 mg PO DAILY PRN Anxiety 01/16/25 02/12/25 cyanocobalamin (vitamin B-12) 1,000 mcg PO DAILY 01/16/25 02/12/25 1,000 mcg tablet (Vitamin B-12) glucagon 3 mg/actuation nasal 3 mg intranasal DAILY PRN 01/16/25 02/12/25 spray (Baqsimi) Hypoglycemia vitamin B complex 1 tab PO DAILY 01/16/25 02/12/25 cyclobenzaprine 5 mg tablet 5 mg PO TID PRN muscle spasm 02/12/25 02/12/25 Previous Rx's ?Medication ?Instructions ?Recorded insulin syringe-needle U-100 0.3 #150 ea 08/29/20 mL 29 gauge x 1/2 (BD Insulin Syringe) pen needle, diabetic 32 gauge x #50 ea 08/29/20 5/32 (BD Felisha 2nd Gen Pen Needle) 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 meter (FreeStyle #1 ea 10/22/22 Lite Meter kit) blood sugar diagnostic (FreeStyle #300 ea 02/19/23 Lite Strips) lancets 28 gauge (FreeStyle #100 ea 02/19/23 Lancets) omeprazole 40 mg capsule,delayed 40 mg PO BID@0630,1630 #180 caps 02/06/24 release acetone (urine) test (Ketone Urine #25 ea 11/02/24 Test strips) amlodipine 10 mg tablet 10 mg PO DAILY #90 tabs 01/19/25 chlordiazepoxide HCl 25 mg capsule 50 mg (2 x 25 mg) PO Q4H PRN 02/10/25 alcohol withdrawal 6 doses #12 caps insulin lispro 100 unit/mL See Rx Instructions .Route 02/22/25 subcutaneous solution .COMPLEX #30 mL acetaminophen 500 mg tablet 500 mg PO Q6H PRN fever or pain 03/04/25 (Tylenol Extra Strength) #14 tabs cyclobenzaprine 10 mg tablet 10 mg PO TID PRN muscle spasm #10 03/04/25 tabs lidocaine 5 % topical patch 1 patch topical DAILY PRN pain #30 03/04/25 (Lidoderm) ea morphine 15 mg immediate release 15 mg PO Q6H PRN pain (scale score 03/04/25 tablet 7-10) 3 days #5 tabs naproxen 500 mg tablet 500 mg PO BID PRN pain 10 days #20 03/04/25 tabs Allergies Allergy/AdvReac Type Severity Reaction Status Date / Time hydroxyzine [From VISTARIL] Allergy Intermediate RASH, Verified 03/04/25 01:21 ANXIOUS quetiapine [Seroquel] AdvReac Intermediate Unknown Verified 03/04/25 01:21 Review of Systems Review of Systems: Yes all other systems are reviewed and are negative Constitutional: Constitutional: Reports as per HPI Neurologic: Denies Sensory deficit (Neuro) [facility] Past Medical History Attestation statement: The following information was validated with the patient. Source: old records reviewed Medical History Constipation History of methadone use Intravenous drug user Peripheral vascular disease Elevated liver function tests Polysubstance abuse Osteoarthritis Type 1 diabetes History of drug abuse Depression Vitamin D deficiency 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 Mother No problems noted. Social History Social History Household Members: Family Household Members Other:: mother Housing: House Do you presently have visiting nurse or other home services: No Alcohol intake: current Alcohol intake frequency: 3 or more drinks per day Alcohol type: hard liquor Patient Tobacco Use Status: Current everyday Tobacco user Tobacco use type: Cigarette Cigarettes Per Day: 3 Years Smoked: 33 Smoked in Last 30 Days: Yes e-Cigarette/Vaping Use: Currently Using Second Hand Smoke Exposure: No Use of substances other than those prescribed or required for medical reasons: Yes Substance Use Type: Marijuana Substance Use Frequency: Daily Advance Directives: Yes Advance Directives on File: Yes Advance Directives Date on File: 08/29/20 Do you have a plan to hurt others: No Plan service: No Current occupational status: unemployed Physical Exam Vital Signs: Vital Signs: Last Vital Signs Temp 97.2 F 03/04/25 11:38 Pulse 86 03/04/25 11:38 Resp 14 03/04/25 11:38 BP 139/80 03/04/25 11:38 Pulse Ox 99 03/04/25 11:38 O2 Del Method Room Air 03/04/25 11:38 BMI result Body Mass Index 22.6 Const: General: cooperative, healthy appearing and no acute distress Orientation/consciousness: patient oriented x3 Limitations: no limitations HEENT: Head: Yes normal to inspection and Yes atraumatic Ears: hearing grossly normal bilaterally General nose exam: Normal external nose present Face and sinus: Yes normal facial exam Eyes: General: appearance normal, both eyes and all related structures EOM: EOMs intact bilaterally Neck: Neck: Yes normal visual inspection and Yes no meningeal signs Resp: Effort & Inspection: normal respiratory effort and no respiratory distress Cardio: Rate: regular rate GI: Inspection: Yes normal to inspection Palpation (GI): Soft to palpation, nontender, no guarding and not rigid : General: Yes no CVA tenderness Back/Spine/Pelvis: Other: No midline cervical/thoracic/lumbar spinous tenderness/step-off or deformity. back pain not reproducible to palpation. Reproduced with movement. No rash, ecchymosis or erythema Back: no CVA tenderness Skin: Rashes: no rashes Wounds: no wounds Neuro: Other: Strength intact throughout. No saddle anesthesia. Sensation intact to light touch. Neurovascular intact distally General: patient oriented x3, gait normal, tone normal, moves all extremities and no meningeal signs Cranial nerves: Yes CN's II-XII intact bilaterally Gait exam (Neuro): Normal gait present Motor exam (neuro): 5/5 motor strength present throughout Sensory Exam: No Sensory deficit (Neuro) Extrem: General: Yes normal to inspection Course Course Course Narrative: -1119-- after IM Toradol, lidocaine patch, Flexeril and morphine patient reports symptomatic improvement. Has PT on Thursday Results discussed with patient including worrisome signs and symptoms and strict return precautions, and when to return to the emergency department. They verbalized understanding and feel safe for discharge at this time. Medications Administered Discontinued Medications Generic Name Dose Route Start Last Admin Trade Name Freq PRN Reason Stop Dose Admin Cyclobenzaprine HCl 10 mg 03/04/25 08:24 03/04/25 08:39 Cyclobenzaprine Hcl 10 Mg Tablet PO 03/04/25 08:25 10 mg ONCE ONE Administration Ketorolac Tromethamine 30 mg 03/04/25 08:24 03/04/25 08:39 Ketorolac Tromethamine 30 Mg/Ml Vial IM 03/04/25 08:25 30 mg ONCE ONE Administration Lidocaine 1 patch 03/04/25 08:24 03/04/25 08:40 Lidocaine 4 % Patch Adh..Patch TRANSDERMA 03/04/25 08:25 1 patch ONCE ONE Administration Protocol Morphine Sulfate 15 mg 03/04/25 09:31 03/04/25 10:00 Morphine Sulfate Immed Release 15 Mg Tablet PO 03/04/25 09:32 15 mg ONCE ONE Administration Medical Decision Making Medical Decision Making MDM Narrative: 49-year-old male with a past medical history polysubstance abuse (remission from x10yrs), osteoarthritis, diabetes, depression, presenting to the ED complaining of acute on chronic right-sided lower back pain radiating down RLE with associated paresthesias since midnight last night. on exam vital signs stable, NAD, nontoxic appearing, physical exam as noted above. No midline spinous tenderness throughout or red flag symptoms. Abdomen is soft and nontender. Concern for MSK pain/ spasming vs sciatica vs herniated disc. Low suspicion for cauda equina, cord compression, epidural abscess at this time or fracture. Unlikely renal stones/ pyelo Plan: Pain control, re-evaluation Please refer to course for remaining clinical decision making, interpretation of labs/imaging results, and discussions with consultants and/or family members. Differential Diagnosis Differential Diagnoses: The differential diagnosis associated with the presentation includes As above Lab Data Labs: Lab Results 03/04/25 Range/Units 07:55 POC Glucose 118 H (60-115) mg/dL External Record Review External record reviewed: Inpatient record, Office record, Outpatient record, Prior outpatient labs, Prior outpatient radiology, Primary care record and Outside ED record Tests considered The following testing was considered but not selected: As above Prescription Management I considered prescription management with: Pain Medication Chronic Conditions Patient?s care impacted by: Other Social Determinants Patient?s care significantly limited by Social Determinants of Health including: Other Social Determinant of Health Discharge Plan Discharge Clinical Impression: Lumbar radiculopathy Patient Disposition: Home, Self-Care Instructions: Lumbar Radiculopathy (ED) Additional Instructions: Your pain is likely musculoskeletal Flexeril is a muscle relaxer, take at night as it makes you drowsy, do not drive, drink alcohol, or operate machinery while taking it Naproxen as an anti-inflammatory / pain medication, take with food Lidoderm patches are numbing patches, apply to painful area In addition take Tylenol at home morphine as an opiate pain medication, take only when pain is severe for the next 3 days If symptoms persist or worsen, pain becomes unbearable, you developed urinary retention or incontinence, or weakness return to the ED Prescriptions: New cyclobenzaprine 10 mg tablet 10 mg PO TID PRN (Reason: muscle spasm) Qty: 10 0RF acetaminophen [Tylenol Extra Strength] 500 mg tablet 500 mg PO Q6H PRN (Reason: fever or pain) Qty: 14 0RF lidocaine [Lidoderm] 5 % adhesive patch,medicated 1 patch topical DAILY MDD remove after 12 hours PRN (Reason: pain) Qty: 30 0RF Rx Instructions: leave on most painful area for up to 12 hrs morphine 15 mg tablet 15 mg PO Q6H PRN (Reason: pain (scale score 7-10)) 3 Days Qty: 5 0RF Rx Instructions: Partial Fill upon patient request. naproxen 500 mg tablet 500 mg PO BID PRN (Reason: pain) 10 Days Qty: 20 0RF No Action (DME) insulin syringe-needle U-100 [BD Insulin Syringe] 0.3 mL 29 gauge x 1/2 syringe See Rx Instructions .ROUTE .MEDSUPPLY Qty: 150 5RF Rx Instructions: 4 times a day (DME) pen needle, diabetic [BD Felisha 2nd Gen Pen Needle] 32 gauge x 5/32 needle See Rx Instructions .ROUTE .MEDSUPPLY Qty: 50 4RF Rx Instructions: once a day (DME) 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 meter [FreeStyle Lite Meter] Kit See Rx Instructions .Route Qty: 1 0RF Rx Instructions: As directed-checks 4 X/day insulin lispro 100 unit/mL solution See Rx Instructions .ROUTE .COMPLEX Qty: 30 11RF Rx Instructions: UP TO 100 UNITS DAILY VIA INSULIN PUMP (TANDEM TSLIM x2) (DME) Tandem Mobi System Misc MISCELLANEOUS Rx Instructions: UP TO 100 UNITS INSULIN LISPRO DAILY VIA PUMP fluticasone propion-salmeterol [Advair Diskus] 250-50 mcg/dose Blister With Device 1 inh INHALATION BID PRN (Reason: Shortness Of Breath Or Wheezing) albuterol sulfate [Ventolin HFA] 90 mcg/actuation Hfa Aerosol Inhaler 2 puff INHALATION Q4H PRN (Reason: Respiratory Distress) omeprazole 40 mg Capsule,Delayed Release(Dr/Ec) 40 mg PO BID@0630,1630 Qty: 180 0RF clonidine HCl 0.1 mg tablet 0.1 mg PO DAILY PRN (Reason: Anxiety) cholecalciferol (vitamin D3) 25 mcg (1,000 unit) tablet 25 mcg PO DAILY Baqsimi 3 mg/actuation spray,non-aerosol 3 mg intranasal DAILY PRN (Reason: Hypoglycemia) cyanocobalamin (vitamin B-12) [Vitamin B-12] 1,000 mcg Tablet 1,000 mcg PO DAILY vitamin B complex Tablet 1 tab PO DAILY amlodipine 10 mg Tablet 10 mg PO DAILY Qty: 90 0RF Protocol: Hold for SBP< HOLD for SBP < : 90 chlordiazepoxide HCl 25 mg capsule 50 mg PO Q4H PRN (Reason: alcohol withdrawal) Qty: 12 0RF Rx Instructions: until symptoms controlled cyclobenzaprine 5 mg tablet 5 mg PO TID PRN (Reason: muscle spasm) clonazepam 0.5 mg tablet 0.5 mg PO BEDTIME PRN (Reason: Anxiety) Rx Instructions: AT BEDTIME (DME) FreeStyle Lite Strips Strip See Rx Instructions .ROUTE .MEDSUPPLY Qty: 300 11RF Rx Instructions: 4x daily (DME) lancets [FreeStyle Lancets] 28 gauge misc See Rx Instructions .Route Qty: 100 5RF Rx Instructions: As directed 4 X/day (DME) Ketone Urine Test Strip See Rx Instructions .ROUTE .MEDSUPPLY Qty: 25 1RF Rx Instructions: prn tid for nausea, vomiting, illness, glucose remaining over 250 Referrals: Niru Crawford PA [Primary Care Provider] - Manny Esquivel MD, PhD [Physician] - 1 week Interventions: ED Discharge Assessment Last Done: 03/04/25 11:38 Discharge Date/Time: 03/04/25 11:38 Print Language: Nepali
[2025-03-04] MEDS: Lidocaine 4 % Patch ADH..PATCH 1 PATCH TRANSDERMA (08:40)
--- NOTE | 2025-03-04 08:45 | PC.NURSE ---
pt medicated per DEC for 8/10 back pain radiating to bilateral legs and up to R side of neck. eating breakfast, no other needs at this time.
[2025-03-04] MEDS: Morphine Sulfate Immed Release 15 MG TABLET PO (10:00)
[2025-03-04 10:05] VITALS: BP 139/80; PULSE 86; RESP 14; TEMP 36.2; O2SAT 99
[2025-03-04 11:38] VITALS: BP 139/80; PULSE 86; RESP 14; TEMP 36.2; O2SAT 99
== END 2025-03-04 11:38 | disposition home or self-care (01) ==
PROVIDERS: Emergency Provider Emergency Medicine
DX: M54.16 Radiculopathy, lumbar region (principal); F17.210 Nicotine dependence, cigarettes, uncomplicated; M54.50 Low back pain, unspecified; Z79.899 Other long term (current) drug therapy
CPT/HCPCS: 82947; 96372; 99284; J1885

== ENCOUNTER 2025-03-08 13:54 | Emergency (ER) | payer MEDICAID, SELFPAY ==
[2025-03-08] VITALS (8 sets, daily range): BP systolic 140–178; BP diastolic 69–95; PULSE 100–143; RESP 12–20; TEMP 36.2–36.7; O2SAT 95–100; BMI 20.4
--- NOTE | ~2025-03-08 | CT_ITS ---
CLINICAL HISTORY: N V CT abdomen and pelvis with contrast Comparison: CT/SR - CT ABDOMEN PELVIS WO IV CON - 02/12/25 00:[address]/SR - CT ABDOMEN PELVIS WO IV CON - 02/02/25 19:[address]/MS/SR - CT ABDOMEN PELVIS W IV CON - 01/16/25 10:37 EDT Findings: The lung bases are clear. The liver is borderline prominent. The gallbladder, spleen, adrenal glands, pancreas, kidneys, ureters and bladder demonstrate no acute or suspicious abnormality. Left renal cyst noted. Appendix not identified. No bowel obstruction or free air. Moderate atherosclerotic disease of the aorta distally. Impression: No acute process identified. This document has been electronically signed by: Clif Matson MD on 03/08/2025 20:15:30
--- NOTE | 2025-03-08 14:45 | ED_ITS ---
HPI - Back Pain/Injury General Chief Complaint: Back Pain/Injury Stated Complaint: Back Pain, Vomitting Time Seen by Provider: 03/08/25 15:27 History of Present Illness ED Provider: Zenaida Kebede PA-C HPI Narrative: 49-year-old male with medical history of T1DM, depression, polysubstance use disorder, depression, presents to the ED today due to 1 day of acute on chronic lumbar back pain with associated nausea and vomiting. Patient states right- sided back pain started last night with spasms and stabbing throbbing pain that feels like his usual exacerbation. He stated he began vomiting due to the pain and has had about 30 episodes of vomiting overnight. He reports he [place] his PCP [place] [facility] [place] He [place] [facility] [place] abnormalities and is given cyclobenzaprine by his PCP to manage his pain. He states he has not had anything to drink. Denies recent trauma/injury. He denies chest pain, shortness of breath, fever, chills, urinary symptoms, urine/bowel incontinence. MD elicited complaint: back pain Pertinent past history: prior back pain Onset (ago): day(s) (1) Timing: constant Severity: severe Similar Symptoms Previously: Yes Quality: sharp and throbbing Location: lumbar spine (right side ) Radiation: left upper leg, right upper leg and other (B/L shoulders) Exacerbating factors: movement Relieving factors: none Associated symptoms: other (Nausea/vomiting) Work related injury: No Related Data Home Medications ?Medication ?Instructions ?Recorded ?Confirmed clonazepam 0.5 mg tablet 0.5 mg PO BEDTIME PRN Anxiety 07/16/21 02/12/25 albuterol sulfate 90 mcg/actuation 2 puff inhalation Q4H PRN 12/29/24 02/12/25 aerosol inhaler (Ventolin HFA) Respiratory Distress fluticasone 250 mcg-salmeterol 50 1 inh inhalation BID PRN Shortness 12/29/24 02/12/25 mcg/dose blistr powdr for Of Breath Or Wheezing inhalation (Advair Diskus) subcutaneous insulin pump (Tandem 12/29/24 02/12/25 Mobi System) cholecalciferol (vitamin D3) 25 25 mcg PO DAILY 01/16/25 02/12/25 mcg (1,000 unit) tablet clonidine HCl 0.1 mg tablet 0.1 mg PO DAILY PRN Anxiety 01/16/25 02/12/25 cyanocobalamin (vitamin B-12) 1,000 mcg PO DAILY 01/16/25 02/12/25 1,000 mcg tablet (Vitamin B-12) glucagon 3 mg/actuation nasal 3 mg intranasal DAILY PRN 01/16/25 02/12/25 spray (Baqsimi) Hypoglycemia vitamin B complex 1 tab PO DAILY 01/16/25 02/12/25 cyclobenzaprine 5 mg tablet 5 mg PO TID PRN muscle spasm 02/12/25 02/12/25 Previous Rx's ?Medication ?Instructions ?Recorded insulin syringe-needle U-100 0.3 #150 ea 08/29/20 mL 29 gauge x 1/2 (BD Insulin Syringe) pen needle, diabetic 32 gauge x #50 ea 08/29/20 (BD Felisha 2nd Gen Pen Needle) 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 meter (FreeStyle #1 ea 10/22/22 Lite Meter kit) blood sugar diagnostic (FreeStyle #300 ea 02/19/23 Lite Strips) lancets 28 gauge (FreeStyle #100 ea 02/19/23 Lancets) omeprazole 40 mg capsule,delayed 40 mg PO BID@0630,1630 #180 caps 02/06/24 release acetone (urine) test (Ketone Urine #25 ea 11/02/24 Test strips) amlodipine 10 mg tablet 10 mg PO DAILY #90 tabs 01/19/25 chlordiazepoxide HCl 25 mg capsule 50 mg (2 x 25 mg) PO Q4H PRN 02/10/25 alcohol withdrawal 6 doses #12 caps insulin lispro 100 unit/mL See Rx Instructions .Route 02/22/25 subcutaneous solution .COMPLEX #30 mL acetaminophen 500 mg tablet 500 mg PO Q6H PRN fever or pain 03/04/25 (Tylenol Extra Strength) #14 tabs cyclobenzaprine 10 mg tablet 10 mg PO TID PRN muscle spasm #10 03/04/25 tabs lidocaine 5 % topical patch 1 patch topical DAILY PRN pain #30 03/04/25 (Lidoderm) ea morphine 15 mg immediate release 15 mg PO Q6H PRN pain (scale score 03/04/25 tablet 7-10) 3 days #5 tabs naproxen 500 mg tablet 500 mg PO BID PRN pain 10 days #20 03/04/25 tabs Allergies Allergy/AdvReac Type Severity Reaction Status Date / Time hydroxyzine [From VISTARIL] Allergy Intermediate RASH, Verified 03/08/25 14:47 ANXIOUS quetiapine [Seroquel] AdvReac Intermediate Unknown Verified 03/08/25 14:47 Review of Systems 2 Review of Systems: CONST: Negative for fever, body aches and chills. HENT: Negative for neck pain/stiffness, headache, congestion, sore throat, swelling. EYES: Negative for discharge/pain or vision changes. RESP: Negative for cough/hemoptysis and shortness of breath. CV: Negative chest pain, difficulty breathing, palpitations. ABD: Negative abd pain. POS nausea/vomiting : Negative increase frequency, dysuria, blood in urine or stool. MUSC: Negative for muscle aches, edema. POS right sided lumbar back pain radiates to B/L shoulders, and B/L thighs SKIN: Negative rash, lesions/sores. NEURO: Negative headache, dizziness, weakness. Yes all other systems are reviewed and are negative [facility] Past Medical History Attestation statement: The following information was validated with the patient. 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 Mother No problems noted. Social History Social History Household Members: Family Household Members Other:: mother Housing: House Do you presently have visiting nurse or other home services: No Alcohol intake: current Alcohol intake frequency: 3 or more drinks per day Alcohol type: hard liquor Patient Tobacco Use Status: Current everyday Tobacco user Tobacco use type: Cigarette Cigarettes Per Day: 3 Years Smoked: 33 Smoked in Last 30 Days: Yes e-Cigarette/Vaping Use: Currently Using Second Hand Smoke Exposure: No Substance Use Type: Marijuana Advance Directives: Yes Advance Directives on File: Yes Advance Directives Date on File: 08/29/20 Do you have a plan to hurt others: No Plan service: No Current occupational status: unemployed Physical Exam 2 Vital Signs: Vital Signs: Last Vital Signs Temp 98.4 F 03/09/25 00:05 Pulse 111 H 03/09/25 00:05 Resp 22 H 03/09/25 00:05 BP 160/88 H 03/09/25 00:05 Pulse Ox 99 03/09/25 00:05 O2 Del Method Room Air 03/09/25 00:05 BMI result Body Mass Index 20.4 GENERAL APPEARANCE: ?AxOx3, generally well-appearing, mild distress due to pain. HEENT: ?NC, AT. MMM. EOMI, clear conjunctiva, oropharynx clear. NECK: ?Supple without lymphadenopathy.? No stiffness or restricted ROM. HEART:? Tachycardic rate with regular rhythm, normal S1/S1, no m/r/g LUNGS:? CTAB, moving air well. No crackles or wheezes are heard. ABDOMEN: ?Soft, diffusely tender, nondistended with good bowel sounds heard. BACK: No CVAT, no obvious deformity. TTP over lumbar paraspinal muscles. EXTREMITIES: ?Without cyanosis, clubbing or edema. NEUROLOGICAL: ?Grossly nonfocal. Alert and oriented, moving all 4 extremities. CN not formally tested but appear grossly intact. Observed to ambulate with normal gait. Skin: ?Warm and dry without any rash. Course Course Course Narrative: 49 yo male with PMH of arthritis, DM, depression, esophagitis, gastritis, remission from substance abuse over 10 years, states he has chronic back pain with recent trigger - he was seen on 03/04 Rx Morphine. He had another spasm last night and developed pain and n/v now his abdomen in upper area also hurts. No fevers, states he feels weak and dehydrated he states he has tingles. He thinks he is dehydrated. HR 147 he has no CP/SOB. loss control technician aware, EKG ordered this is a RAPID medical screening exam the rest of the history and physical exam is to be done by the main provider. SVETA 03/08/25 248pm Reevaluation(s) Reevaluation #1: I Garima Castillo PA-C have accepted care of the patient at signed out pending imaging and final disposition....... The patient has not had any active GI symptoms here, he has been requesting quite a bit of Dilaudid, we will be discharging now. Reevaluation #2: CT scan read finally returning now Findings: The lung bases are clear. The liver is borderline prominent. The gallbladder, spleen, adrenal glands, pancreas, kidneys, ureters and bladder demonstrate no acute or suspicious abnormality. Left renal cyst noted. Appendix not identified. No bowel obstruction or free air. Moderate atherosclerotic disease of the aorta distally. Impression: No acute process identified. Time: 00:11 Medications Administered Discontinued Medications Generic Name Dose Route Start Last Admin Trade Name Freq PRN Reason Stop Dose Admin Diatrizoate Meglum/Diatrizoate Sod 30 ml 03/08/25 20:20 03/08/25 20:20 Diatrizoate Meglumine, Sodium 30 Ml Solution PO 03/08/25 20:21 30 ml ONCE ONE Administration Droperidol 1.25 mg 03/08/25 17:12 03/08/25 17:34 Droperidol 5 Mg/2 Ml Vial IVPUSH 03/08/25 17:13 1.25 mg ONCE ONE Administration Hydromorphone HCl 1 mg 03/08/25 15:47 03/08/25 16:14 Hydromorphone Hcl 1 Mg/Ml Syringe IVPUSH 03/08/25 15:48 1 mg ONCE ONE Administration Protocol Hydromorphone HCl 1 mg 03/08/25 17:36 03/08/25 18:17 Hydromorphone Hcl 1 Mg/Ml Syringe IVPUSH 03/08/25 17:37 1 mg ONCE ONE Administration Protocol Hydromorphone HCl 1 mg 03/08/25 22:42 03/08/25 22:47 Hydromorphone Hcl 1 Mg/Ml Syringe IVPUSH 03/08/25 22:43 1 mg ONCE ONE Administration Protocol Lactated Ringer's 1,000 mls @ 999 mls/hr 03/08/25 15:47 03/08/25 19:21 Lr IV 03/08/25 16:47 Infused .Q1H1M ONE Infusion Magnesium Sulfate 2 gm in 50 mls @ 150 mls/hr 03/08/25 16:05 03/08/25 19:21 Magnesium Sulfate/H2o IV 03/08/25 16:24 Infused ONCE ONE Infusion Iohexol 100 ml 03/08/25 20:20 03/08/25 20:20 Iohexol 350 Mg/Ml 100 Ml Infus..Btl IV 03/08/25 20:21 85 ml ONCE ONE Administration Ondansetron HCl 4 mg 03/08/25 15:47 03/08/25 16:14 Ondansetron Hcl 4 Mg/2 Ml Vial IVPUSH 03/08/25 15:48 4 mg ONCE ONE Administration Potassium Chloride 40 meq 03/08/25 16:10 03/08/25 16:32 Potassium Chloride Er 20 Meq Tab.Er.Prt PO 03/08/25 16:11 40 meq ONCE ONE Administration Medical Decision Making Medical Decision Making MDM Narrative: 49-year-old male with medical history of T1DM, depression, polysubstance use disorder, depression, presents to the ED today due to 1 day of acute on chronic lumbar back pain with associated nausea and vomiting. Patient states right- sided back pain started last night with spasms and stabbing throbbing pain that feels like his usual exacerbation. Denies rececent alcohol consumption. Does use marijuana daily. Vital signs stable however shows a tachycardic rate at 126 beats per minute. Labs reveal elevated WBC at 16, hypokalemia 2.9, hypomagnesemia at 1.4. Beta hydroxybutyrate is 1.47. Less likely to be DKA as there is no anion gap, serum glucose is 104. Will obtain VBG for further evaluation. EKG does not reveal any ST elevations/depressions or T-wave abnormalities-not likely to be ACS. Patient is afebrile with BP of 171/93, does not meet sepsis criteria. On physical exam patient is tender over the right lumbar paraspinal muscles, no CVA tenderness, no saddle parasthesia, bowel/bladder incontinence, sensation fully intact B/L lower extremities- not suspicious of Cauda equina. Cardiac exam shows a tachycardic rate with no murmurs rubs or gallops. Lungs CTA bilaterally. Abdomen is soft, nondistended, mildly tender to palpation but patient explains this is due to him having multiple episodes of vomiting. Not actively vomiting at this time. Patient is moderately uncomfortable, can not get comfortable in the stretcher due to back pain. Will medicate with 1 mg Dilaudid, 4 mg Zofran. We will replete potassium with 20 mEq potassium IV, 40 mEq potassium orally, 2 g magnesium IV, IV fluids. Course 17:13- Patient is still nauseous with nursing reporting active vomiting. Suspect this could be due to cyclical vomiting due to marijuana use. Will medicate with 1.25mg droperidol for additional nausea relief. 17:52- Patient's back pain is still uncontrolled. Will medicate with an additional 1mg of Dilaudid for pain management. VBG reveals pH- 7.59 with HCO3 of 45 indicative of metabolic alkalosis most likely due to multiple episodes of vomiting. Will obtain CPK to evaluate for rhabdo however, lactic acid WNL so this is less likely. Obtaining CT abdomen/pelvis with contrast to evaluate for acute abdomen due to nausea and vomiting. 18:47- Patient being signed out to Garima Castillo PA-C to resume care. Currently awaiting abdominal CT scan. Differential Diagnosis Differential Diagnoses: The differential diagnosis associated with the presentation includes Lumbar strain DKA Cauda equina Electrolyte abnormality Pancreatitis Admission/Observation Consideration of admission/observation: Escalation of care including admission/observation considered Lab Data MDM Lab Attestation statement: I reviewed the patient's lab results. 03/08/25 15:09 03/08/25 15:09 Labs: Lab Results 03/08/25 03/08/25 03/08/25 Range/Units 15:09 17:07 17:15 WBC 16.0 H (4.8-10.8) X10*3/uL RBC 4.29 L D (4.60-5.80) X10*6/uL Hgb 15.5 D (14.0-18.0) g/dl Hct 43.5 D (42.0-52.0) % MCV 101.4 H (80.0-98.0) fL MCH 36.1 H (27.0-33.0) pg MCHC 35.6 (31.0-36.0) g/dl RDW 13.3 (11.0-16.0) % Plt Count 224 D (160-400) X10*3/uL MPV 9.9 (9.4-12.4) fL Immature Gran % (Auto) 0.5 H (0.0-0.4) % Neut % (Auto) 82.6 H (45-73) % Lymph % (Auto) 8.7 L (20-40) % [place] % (Auto) 8.0 (2-11) % Eos % (Auto) 0.0 (0-4) % Baso % (Auto) 0.2 (0-2) % Lymph # (Auto) 1.4 (1.2-4.9) X10*3/uL [place] # (Auto) 1.3 H (0.1-1.2) X10*3/uL Eos # (Auto) 0.0 (0.0-0.4) X10*3/uL Baso # (Auto) 0.0 (0.0-0.2) X10*3/uL Abs Immat Gran (auto) 0.08 H (0.00-0.03) X10*3/uL Absolute Neuts (auto) 13.2 H (2.0-8.3) x10*3/uL Absolute Nucleated RBC 0.000 (0.0-0.012) X10*3/uL Nucleated RBC % (auto) 0.0 (0.0-0.2) /100WBC VBG pH 7.59 H (7.32-7.43) VBG pCO2 46 mmHg VBG pO2 72 mmHg VBG HCO3 45 H (22-26) mmol/L VBG O2 Saturation 96.0 % VBG Base Excess 20.6 mmol/L Sodium 150 H (135-145) mmol/L Potassium 2.9 L* D (3.3-5.1) mmol/L Chloride 96 (96-108) mmol/L Carbon Dioxide 38 H (22-29) mmol/L Anion Gap 19 (12-20) BUN 18 H (9-16) mg/dL Creatinine 1.04 (0.5-1.4) mg/dL Estim Creat Clear Calc 79.8 Estimated GFR > 60 Random Glucose 104 (60-115) mg/dL Lactic Acid 1.2 (0.5-2.0) mmol/L Calcium 10.2 D (8.4-10.2) mg/dL Magnesium 1.4 L* (1.6-2.6) mg/dL Total Bilirubin 1.0 (0.0-1.0) mg/dL Direct Bilirubin 0.4 (0.0-0.5) mg/dL AST 62 H (5-37) U/L ALT 38 (0-40) U/L Alkaline Phosphatase 166 H (39-117) U/L Total Creatine Kinase 50 (38-174) U/L Total Protein 7.4 (6.5-8.0) g/dL Albumin 4.6 (3.5-5.0) g/dL Lipase < 4 L (8-78) U/L Beta-Hydroxybutyrate 1.47 H (0.02-0.27) mmol/L Urine Color Urine Appearance Urine pH (5.0-9.0) Ur Specific [place] (1.005-1.025) Urine Protein (Neg-Trace) mg/dL Urine Glucose (UA) (Negative) mg/dL Urine Ketones (Negative) mg/dL Urine Blood (Negative) Urine Nitrite (Negative) Ur Leukocyte Esterase (Negative) Urine RBC (0-2) /HPF Urine WBC (0-5) /HPF Ur Squamous Epith Cells (0-2) /HPF Urine Bacteria (None Seen) Hyaline Casts (0-2) /LPF Urine Opiates Screen (Not Detect) Ur Buprenorphine Scrn (Not Detect) ng/mL Ur Oxycodone Screen (Not Detect) ng/mL Urine Methadone Screen (Not Detect) ng/mL Urine Fentanyl Screen (Not Detect) Ur Barbiturates Screen (Not Detect) Ur Phencyclidine Scrn (Not Detect) Ur Amphetamines Screen (Not Detect) U Benzodiazepines Scrn (Not Detect) Urine Cocaine Screen (Not Detect) U Marijuana (THC) Screen (Not Detect) Ethyl Alcohol < 10 mg/dL 03/08/25 Range/Units 20:15 WBC (4.8-10.8) X10*3/uL RBC (4.60-5.80) X10*6/uL Hgb (14.0-18.0) g/dl Hct (42.0-52.0) % MCV (80.0-98.0) fL MCH (27.0-33.0) pg MCHC (31.0-36.0) g/dl RDW (11.0-16.0) % Plt Count (160-400) X10*3/uL MPV (9.4-12.4) fL Immature Gran % (Auto) (0.0-0.4) % Neut % (Auto) (45-73) % Lymph % (Auto) (20-40) % [place] % (Auto) (2-11) % Eos % (Auto) (0-4) % Baso % (Auto) (0-2) % Lymph # (Auto) (1.2-4.9) X10*3/uL [place] # (Auto) (0.1-1.2) X10*3/uL Eos # (Auto) (0.0-0.4) X10*3/uL Baso # (Auto) (0.0-0.2) X10*3/uL Abs Immat Gran (auto) (0.00-0.03) X10*3/uL Absolute Neuts (auto) (2.0-8.3) x10*3/uL Absolute Nucleated RBC (0.0-0.012) X10*3/uL Nucleated RBC % (auto) (0.0-0.2) /100WBC VBG pH (7.32-7.43) VBG pCO2 mmHg VBG pO2 mmHg VBG HCO3 (22-26) mmol/L VBG O2 Saturation % VBG Base Excess mmol/L Sodium (135-145) mmol/L Potassium (3.3-5.1) mmol/L Chloride (96-108) mmol/L Carbon Dioxide (22-29) mmol/L Anion Gap (12-20) BUN (9-16) mg/dL Creatinine (0.5-1.4) mg/dL Estim Creat Clear Calc Estimated GFR Random Glucose (60-115) mg/dL Lactic Acid (0.5-2.0) mmol/L Calcium (8.4-10.2) mg/dL Magnesium (1.6-2.6) mg/dL Total Bilirubin (0.0-1.0) mg/dL Direct Bilirubin (0.0-0.5) mg/dL AST (5-37) U/L ALT (0-40) U/L Alkaline Phosphatase (39-117) U/L Total Creatine Kinase (38-174) U/L Total Protein (6.5-8.0) g/dL Albumin (3.5-5.0) g/dL Lipase (8-78) U/L Beta-Hydroxybutyrate (0.02-0.27) mmol/L Urine Color Dark Yellow Urine Appearance Clear Urine pH >= 9.0 (5.0-9.0) Ur Specific [place] 1.020 (1.005-1.025) Urine Protein 100 (2+) H (Neg-Trace) mg/dL Urine Glucose (UA) Negative (Negative) mg/dL Urine Ketones 40 (Negative) mg/dL Urine Blood Small (1+) H (Negative) Urine Nitrite Negative (Negative) Ur Leukocyte Esterase Trace H (Negative) Urine RBC >20 H (0-2) /HPF Urine WBC 0-5 (0-5) /HPF Ur Squamous Epith Cells 0-2 (0-2) /HPF Urine Bacteria None Seen (None Seen) Hyaline Casts 3-5 (0-2) /LPF Urine Opiates Screen POSITIVE H (Not Detect) Ur Buprenorphine Scrn Not Detected (Not Detect) ng/mL Ur Oxycodone Screen Not Detected (Not Detect) ng/mL Urine Methadone Screen Not Detected (Not Detect) ng/mL Urine Fentanyl Screen Not Detected (Not Detect) Ur Barbiturates Screen POSITIVE H (Not Detect) Ur Phencyclidine Scrn Not Detected (Not Detect) Ur Amphetamines Screen Not Detected (Not Detect) U Benzodiazepines Scrn POSITIVE H (Not Detect) Urine Cocaine Screen Not Detected (Not Detect) U Marijuana (THC) Screen POSITIVE H (Not Detect) Ethyl Alcohol mg/dL Independent Interpretation I performed an independent interpretation of an: EKG Interpretation: EKG: Vent. Rate : 134 BPM Atrial Rate : 134 BPM P-R Int : 136 ms QRS Dur : 88 ms QT Int : 304 ms P-R-T Axes : 79 94 67 degrees QTcB Int : 453 ms Sinus tachycardia Possible Left atrial enlargement Rightward axis Nonspecific ST abnormality Abnormal ECG When compared with ECG of 11-Feb-2025 18:56, No significant change was found Independent Historian Clinical information obtained from an independent historian. History obtained from or confirmed by: Other (Girlfriend at the bedside) External Record Review External record reviewed: Inpatient record, Office record and Outpatient record Chronic Conditions Patient?s care impacted by: Diabetes (Type 1) Discharge Plan Discharge Clinical Impression: Back pain, Abdominal pain, Acute hypokalemia Patient Disposition: Home, Self-Care Instructions: Chronic Abdominal Pain (DC), Chronic Back Pain (DC), Hypokalemia (ED), Potassium Content of Foods List (ED) Additional Instructions: CT scan of the abdomen was negative. You were treated for low potassium, see home care instructions. Continue to follow up with your healthcare providers in regard to your chronic abdominal pain and back pain. Prescriptions: No Action (DME) insulin syringe-needle U-100 [BD Insulin Syringe] 0.3 mL 29 gauge x 1/2 syringe See Rx Instructions .ROUTE .MEDSUPPLY Qty: 150 5RF Rx Instructions: 4 times a day (DME) pen needle, diabetic [BD Felisha 2nd Gen Pen Needle] 32 gauge x 5/32 needle See Rx Instructions .ROUTE .MEDSUPPLY Qty: 50 4RF Rx Instructions: once a day (DME) 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 meter [FreeStyle Lite Meter] Kit See Rx Instructions .Route Qty: 1 0RF Rx Instructions: As directed-checks 4 X/day insulin lispro 100 unit/mL solution See Rx Instructions .ROUTE .COMPLEX Qty: 30 11RF Rx Instructions: UP TO 100 UNITS DAILY VIA INSULIN PUMP (TANDEM TSLIM x2) (DME) Tandem Mobi System Misc MISCELLANEOUS Rx Instructions: UP TO 100 UNITS INSULIN LISPRO DAILY VIA PUMP fluticasone propion-salmeterol [Advair Diskus] 250-50 mcg/dose Blister With Device 1 inh INHALATION BID PRN (Reason: Shortness Of Breath Or Wheezing) albuterol sulfate [Ventolin HFA] 90 mcg/actuation Hfa Aerosol Inhaler 2 puff INHALATION Q4H PRN (Reason: Respiratory Distress) omeprazole 40 mg Capsule,Delayed Release(Dr/Ec) 40 mg PO BID@0630,1630 Qty: 180 0RF clonidine HCl 0.1 mg tablet 0.1 mg PO DAILY PRN (Reason: Anxiety) cholecalciferol (vitamin D3) 25 mcg (1,000 unit) tablet 25 mcg PO DAILY Baqsimi 3 mg/actuation spray,non-aerosol 3 mg intranasal DAILY PRN (Reason: Hypoglycemia) cyanocobalamin (vitamin B-12) [Vitamin B-12] 1,000 mcg Tablet 1,000 mcg PO DAILY vitamin B complex Tablet 1 tab PO DAILY amlodipine 10 mg Tablet 10 mg PO DAILY Qty: 90 0RF Protocol: Hold for SBP< HOLD for SBP < : 90 chlordiazepoxide HCl 25 mg capsule 50 mg PO Q4H PRN (Reason: alcohol withdrawal) Qty: 12 0RF Rx Instructions: until symptoms controlled cyclobenzaprine 5 mg tablet 5 mg PO TID PRN (Reason: muscle spasm) cyclobenzaprine 10 mg tablet 10 mg PO TID PRN (Reason: muscle spasm) Qty: 10 0RF acetaminophen [Tylenol Extra Strength] 500 mg tablet 500 mg PO Q6H PRN (Reason: fever or pain) Qty: 14 0RF lidocaine [Lidoderm] 5 % adhesive patch,medicated 1 patch topical DAILY MDD remove after 12 hours PRN (Reason: pain) Qty: 30 0RF Rx Instructions: leave on most painful area for up to 12 hrs morphine 15 mg tablet 15 mg PO Q6H PRN (Reason: pain (scale score 7-10)) 3 Days Qty: 5 0RF Rx Instructions: Partial Fill upon patient request. naproxen 500 mg tablet 500 mg PO BID PRN (Reason: pain) 10 Days Qty: 20 0RF clonazepam 0.5 mg tablet 0.5 mg PO BEDTIME PRN (Reason: Anxiety) Rx Instructions: AT BEDTIME (DME) FreeStyle Lite Strips Strip See Rx Instructions .ROUTE .MEDSUPPLY Qty: 300 11RF Rx Instructions: 4x daily (DME) lancets [FreeStyle Lancets] 28 gauge misc See Rx Instructions .Route Qty: 100 5RF Rx Instructions: As directed 4 X/day (DME) Ketone Urine Test Strip See Rx Instructions .ROUTE .MEDSUPPLY Qty: 25 1RF Rx Instructions: prn tid for nausea, vomiting, illness, glucose remaining over 250 Print Language: Azeri
--- NOTE | 2025-03-08 14:47 | ECG_ITS ---
Test Reason : TACYCARDIA Blood Pressure : */* mmHG Vent. Rate : 134 BPM Atrial Rate : 134 BPM P-R Int : 136 ms QRS Dur : 88 ms QT Int : 304 ms P-R-T Axes : 79 94 67 degrees QTcB Int : 453 ms Sinus tachycardia Possible Left atrial enlargement Rightward axis Nonspecific ST abnormality Abnormal ECG When compared with ECG of 11-Feb-2025 18:56, No significant change was found Referred By: Sharmila Olvera Electronically Signed By: ROBERT HEAD MD
--- NOTE | 2025-03-08 15:12 | MHC.EDTECH ---
Patient has pain 8/10 RN aware
[2025-03-08 15:25] LABS: MANUAL DIFF FLAG NO
[2025-03-08 15:27] LABS: Basophils Percent Auto 0.2 % (0-2); Hematocrit 43.5 % (42.0-52.0); Hemoglobin 15.5 g/dl (14.0-18.0); Imm Gran Abs Auto 0.08 X10*3/uL (0.00-0.03); Imm Gran Pct Auto 0.5 % (0.0-0.4); Lymphocytes Absolute Auto 1.4 X10*3/uL (1.2-4.9); Lymphocytes Percent Auto 8.7 % (20-40); Mean Corpuscular HGB Conc 35.6 g/dl (31.0-36.0); Mean Corpuscular Hemoglobin 36.1 pg (27.0-33.0); Mean Corpuscular Volume 101.4 fL (80.0-98.0); Mean Platelet Volume 9.9 fL (9.4-12.4); Monocytes Absolute Auto 1.3 X10*3/uL (0.1-1.2); Neutrophils Absolute Auto 13.2 x10*3/uL (2.0-8.3); Neutrophils Percent Auto 82.6 % (45-73); Platelet Count 224 X10*3/uL (160-400); Red Blood Count 4.29 X10*6/uL (4.60-5.80); Red Cell Distribution Width 13.3 % (11.0-16.0)
[2025-03-08 15:36] LABS: Ethanol < 10 mg/dL
--- OUTSIDE RECORDS SUMMARY | 2025-03-08 15:52 | XMS_ITS | Encounter Summary ---
Author Organization [facility] Address [address] [place] [address] Phone Care Team Providers Care Wallpaper Remover Steam Name Role Phone Niru Crawford Primary Care Provider [phone] Encounter Details Date Type Department Care Team (Late st Contact Info) Description 09/30/2023 Documentation Only [facility] [address] [place] [id number] Linda Carrasquillo NP Social History Tobacco Use [...] Care Team (Late st Contact Info) Description 05/16/2025 3:20 PM EDT Office Visit [facility] [address] [place] [address] Juan Yee MD [address] [place] [address] [place] [address] documented as of this encounter Visit Diagnoses Not on filedocumented in this encounter Care Teams Wallpaper Remover Steam Relationship Specialty Start Date End Date Niru Crawford [address] [facility] [place] [place] [address] PCP - General 11/08/24 documented as of this encounter
[2025-03-08 15:57] LABS: Alanine Aminotransferase 38 U/L (0-40); Albumin Level 4.6 g/dL (3.5-5.0); Alkaline Phosphatase 166 U/L (39-117); Anion Gap 19 (12-20); Aspartate Amino Transferase 62 U/L (5-37); Bilirubin Direct 0.4 mg/dL (0.0-0.5); Blood Urea Nitrogen 18 mg/dL (9-16); Calcium 10.2 mg/dL (8.4-10.2); Carbon Dioxide 38 mmol/L (22-29); Chloride 96 mmol/L (96-108); Creatinine Clr Calc Pharmacy 79.8; Estimated Glomerular Filt Rate > 60; Glucose Random 104 mg/dL (60-115); Lipase < 4 U/L (8-78); Magnesium 1.4 mg/dL (1.6-2.6); Potassium 2.9 mmol/L (3.3-5.1); Sodium 150 mmol/L (135-145); Total Protein 7.4 g/dL (6.5-8.0)
[2025-03-08 16:08] LABS: Beta-Hydroxybutyrate 1.47 mmol/L (0.02-0.27)
[2025-03-08] MEDS: Lactated Ringers 1,000 ML 999 ML IV (16:14)
[2025-03-08] MEDS: ondansetron HCL 4 MG/2 ML VIAL IVPUSH (16:14)
[2025-03-08] MEDS: HYDROmorphone HCl 1 MG/ML SYRINGE IVPUSH ×3 (16:14→22:47)
[2025-03-08] MEDS: Magnesium Sulfate/H2O 2 GM/50 ML PIGGYBACK IV (16:32)
[2025-03-08] MEDS: Potassium Chloride ER 20 MEQ TAB.ER.PRT 40 MEQ PO (16:32)
[2025-03-08 17:25] LABS: VBG Base Excess 20.6 mmol/L; VBG HCO3 45 mmol/L (22-26); VBG pCO2 46 mmHg; VBG pH 7.59 (7.32-7.43); VBG pO2 72 mmHg
[2025-03-08 17:27] LABS: Lactic Acid 1.2 mmol/L (0.5-2.0)
[2025-03-08 17:28] LABS: Venous Blood Gas Refer to POC result
[2025-03-08] MEDS: droPERidol 5 MG/2 ML VIAL 1.25 MG IVPUSH (17:34)
--- NOTE | 2025-03-08 19:09 | PC.NURSE ---
assumed care of patient at 1900. report received from Raquel FAJARDO.
[2025-03-08] MEDS: Diatrizoate Meglumine, Sodium 30 ML SOLUTION PO (20:20)
[2025-03-08] MEDS: iohexoL 350 MG/ML 100 ML INFUS..BTL IV (20:20)
[2025-03-08 20:24] LABS: Appearance Urine Clear; Color Urine Dark Yellow; Glucose Urine UA Negative (Negative); Leukocyte Esterase Urine Trace (Negative); Nitrite Urine Negative (Negative); PH >= 9.0 (5.0-9.0); UMIC TRIGGER UACC YES; Urine Blood Small (1+) (Negative); Urine Ketones 40 mg/dL (Negative); Urine Protein 100 (2+) mg/dL (Neg-Trace)
[2025-03-08 20:26] LABS: Bacteria Urine None Seen (None Seen); RBC Urine >20 /HPF (0-2); Squamous Epithelial Cell Urine 0-2 /HPF (0-2); WBC Urine 0-5 /HPF (0-5)
[2025-03-08 20:32] LABS: Amphetamine Screen Urine Not Detected (Not Detect); Barbiturates, Urine POSITIVE (Not Detect); Benzodiazepines Screen Urine POSITIVE (Not Detect); Buprenorphine Scr Not Detected (Not Detect); Cannabinoid Screen Urine POSITIVE (Not Detect); Cocaine Screen Urine Not Detected (Not Detect); Fentanyl, urine Not Detected (Not Detect); Methadone Screen, Urine Not Detected (Not Detect); Opiate Screen Urine POSITIVE (Not Detect); Oxycodone Screen Urine Not Detected (Not Detect); Phencyclidine Screen Urine Not Detected (Not Detect)
[2025-03-09 00:05] VITALS: BP 160/88; PULSE 111; RESP 22; TEMP 36.9; O2SAT 99
[2025-03-09 01:04] VITALS: BP 156/86; PULSE 108; RESP 18; TEMP 36.9; O2SAT 96
== END 2025-03-09 01:04 | disposition home or self-care (01) ==
PROVIDERS: Emergency Medicine; Emergency Provider Emergency Medicine
DX: M54.50 Low back pain, unspecified (principal); R10.10 Upper abdominal pain, unspecified; E87.6 Hypokalemia; R11.2 Nausea with vomiting, unspecified; R00.0 Tachycardia, unspecified; E10.9 Type 1 diabetes mellitus without complications; I10 Essential (primary) hypertension; F12.90 Cannabis use, unspecified, uncomplicated; F11.20 Opioid dependence, uncomplicated; F17.210 Nicotine dependence, cigarettes, uncomplicated; Z79.4 Long term (current) use of insulin
CPT/HCPCS: 36415; 74177; 80048; 80076; 80307; 81001; 82010; 82550; 82803; 83605; 83690; 83735; 85025; 87040; 93005; 96361; 96365; 96366; 96375; 96376; 99285; J1171; J1790; J2405; J3475; J7120; Q9967

== ENCOUNTER → 2025-03-08 14:47 | Outpatient (BNV) | payer MEDICAID, SELFPAY | PROVIDERS: Emergency Provider Emergency Medicine; Visit Provider Internal Medicine Cardiovascular Disease | DX: R00.0 Tachycardia, unspecified (principal) | CPT/HCPCS: 93010 ==

== ENCOUNTER → 2025-03-08 17:32 | Outpatient (BNV) | payer MEDICAID, SELFPAY | PROVIDERS: Emergency Provider Emergency Medicine; Visit Provider Radiology Vascular & Interventional Radiology | DX: R11.2 Nausea with vomiting, unspecified (principal) | CPT/HCPCS: 74177 ==

== ENCOUNTER 2025-03-13 21:48 | Emergency (ER) | payer MEDICAID, SELFPAY ==
[2025-03-13 21:52] VITALS: BP 159/89; PULSE 101; RESP 18; TEMP 36.4; O2SAT 96; BMI 22.3
[2025-03-14 00:40] VITALS: BP 125/76; PULSE 82; RESP 16; TEMP 36.4; O2SAT 100
[2025-03-14 01:00] LABS: Basophils Absolute Auto 0.1 X10*3/uL (0.0-0.2); Basophils Percent Auto 0.9 % (0-2); Eosinophils Absolute Auto 0.2 X10*3/uL (0.0-0.4); Eosinophils Percent Auto 3.1 % (0-4); Hematocrit 39.4 % (42.0-52.0); Hemoglobin 14.5 g/dl (14.0-18.0); Imm Gran Abs Auto 0.02 X10*3/uL (0.00-0.03); Imm Gran Pct Auto 0.3 % (0.0-0.4); Lymphocytes Percent Auto 44.2 % (20-40); MANUAL DIFF FLAG NO; Mean Corpuscular HGB Conc 36.8 g/dl (31.0-36.0); Mean Corpuscular Hemoglobin 36.8 pg (27.0-33.0); Mean Platelet Volume 9.9 fL (9.4-12.4); Monocytes Absolute Auto 0.9 X10*3/uL (0.1-1.2); Monocytes Percent Auto 13.9 % (2-11); Neutrophils Absolute Auto 2.5 x10*3/uL (2.0-8.3); Neutrophils Percent Auto 37.6 % (45-73); Platelet Count 153 X10*3/uL (160-400); Red Blood Count 3.94 X10*6/uL (4.60-5.80); Red Cell Distribution Width 12.9 % (11.0-16.0); White Blood Count 6.7 X10*3/uL (4.8-10.8)
[2025-03-14 01:20] LABS: Alanine Aminotransferase 79 U/L (0-40); Anion Gap 15 (12-20); Aspartate Amino Transferase 122 U/L (5-37); Bilirubin Direct 0.2 mg/dL (0.0-0.5); Bilirubin Total 0.4 mg/dL (0.0-1.0); Blood Urea Nitrogen 10 mg/dL (9-16); Calcium 9.1 mg/dL (8.4-10.2); Carbon Dioxide 30 mmol/L (22-29); Chloride 100 mmol/L (96-108); Creatinine Clr Calc Pharmacy 90.7; Estimated Glomerular Filt Rate > 60; Glucose Random 130 mg/dL (60-115); Potassium 3.4 mmol/L (3.3-5.1); Sodium 142 mmol/L (135-145); Total Protein 6.4 g/dL (6.5-8.0)
--- NOTE | 2025-03-14 02:11 | ED.BACK ---
HPI - Back Pain/Injury General Chief Complaint: Back Pain/Injury Stated Complaint: back pain,nausea Time Seen by Provider: 03/14/25 01:32 Source: patient Mode of arrival: ambulatory Limitations: no limitations History of Present Illness ED Provider: HPI Narrative: patient has chronic back pain comes here for ongoing pain while in the ER patient was resting on the phone patient has already seen his PCP and spine clinic and was seen here on 03/08 for same been taking Flexeril, morphine tablets, naproxen without much relief supposed to see pain clinic next week Related Data Home Medications ?Medication ?Instructions ?Recorded ?Confirmed clonazepam 0.5 mg tablet 0.5 mg PO BEDTIME PRN Anxiety 07/16/21 02/12/25 albuterol sulfate 90 mcg/actuation 2 puff inhalation Q4H PRN 12/29/24 02/12/25 aerosol inhaler (Ventolin HFA) Respiratory Distress fluticasone 250 mcg-salmeterol 50 1 inh inhalation BID PRN Shortness 12/29/24 02/12/25 mcg/dose blistr powdr for Of Breath Or Wheezing inhalation (Advair Diskus) subcutaneous insulin pump (Tandem 12/29/24 02/12/25 Mobi System) cholecalciferol (vitamin D3) 25 25 mcg PO DAILY 01/16/25 02/12/25 mcg (1,000 unit) tablet clonidine HCl 0.1 mg tablet 0.1 mg PO DAILY PRN Anxiety 01/16/25 02/12/25 cyanocobalamin (vitamin B-12) 1,000 mcg PO DAILY 01/16/25 02/12/25 1,000 mcg tablet (Vitamin B-12) glucagon 3 mg/actuation nasal 3 mg intranasal DAILY PRN 01/16/25 02/12/25 spray (Baqsimi) Hypoglycemia vitamin B complex 1 tab PO DAILY 01/16/25 02/12/25 cyclobenzaprine 5 mg tablet 5 mg PO TID PRN muscle spasm 02/12/25 02/12/25 Previous Rx's ?Medication ?Instructions ?Recorded insulin syringe-needle U-100 0.3 #150 ea 08/29/20 mL 29 gauge x 1/2 (BD Insulin Syringe) pen needle, diabetic 32 gauge x #50 ea 08/29/20/32 (BD Felisha 2nd Gen Pen Needle) 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 meter (FreeStyle #1 ea 10/22/22 Lite Meter kit) blood sugar diagnostic (FreeStyle #300 ea 02/19/23 Lite Strips) lancets 28 gauge (FreeStyle #100 ea 02/19/23 Lancets) omeprazole 40 mg capsule,delayed 40 mg PO BID@0630,1630 #180 caps 02/06/24 release acetone (urine) test (Ketone Urine #25 ea 11/02/24 Test strips) amlodipine 10 mg tablet 10 mg PO DAILY #90 tabs 01/19/25 chlordiazepoxide HCl 25 mg capsule 50 mg (2 x 25 mg) PO Q4H PRN 02/10/25 alcohol withdrawal 6 doses #12 caps insulin lispro 100 unit/mL See Rx Instructions .Route 02/22/25 subcutaneous solution .COMPLEX #30 mL acetaminophen 500 mg tablet 500 mg PO Q6H PRN fever or pain 03/04/25 (Tylenol Extra Strength) #14 tabs cyclobenzaprine 10 mg tablet 10 mg PO TID PRN muscle spasm #10 03/04/25 tabs lidocaine 5 % topical patch 1 patch topical DAILY PRN pain #30 03/04/25 (Lidoderm) ea morphine 15 mg immediate release 15 mg PO Q6H PRN pain (scale score 03/04/25 tablet 7-10) 3 days #5 tabs naproxen 500 mg tablet 500 mg PO BID PRN pain 10 days #20 03/04/25 tabs meloxicam 7.5 mg tablet 7.5 mg PO DAILY #20 tabs 03/14/25 Allergies Allergy/AdvReac Type Severity Reaction Status Date / Time hydroxyzine [From VISTARIL] Allergy Intermediate RASH, Verified 03/13/25 21:53 ANXIOUS quetiapine [Seroquel] AdvReac Intermediate Unknown Verified 03/13/25 21:53 Review of Systems Review of Systems: Yes all other systems are reviewed and are negative [facility] Past Medical History Medical History Constipation History of methadone use Intravenous drug user Peripheral vascular disease Elevated liver function tests Polysubstance abuse Osteoarthritis Type 1 diabetes History of drug abuse Depression Vitamin D deficiency 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 Mother No problems noted. Social History Social History Household Members: Family Household Members Other:: mother Housing: House Do you presently have visiting nurse or other home services: No Alcohol intake: current Alcohol intake frequency: 3 or more drinks per day Alcohol type: beer Patient Tobacco Use Status: Current everyday Tobacco user Tobacco use type: Cigarette Cigarettes Per Day: 3 Years Smoked: 33 Smoked in Last 30 Days: Yes e-Cigarette/Vaping Use: Currently Using Second Hand Smoke Exposure: No Substance Use Type: Marijuana Advance Directives: Yes Advance Directives on File: Yes Advance Directives Date on File: 08/29/20 Do you have a plan to hurt others: No Plan service: No Current occupational status: unemployed Physical Exam Vital Signs: Vital Signs: Last Vital Signs Temp 97.5 F 03/14/25 06:16 Pulse 81 03/14/25 06:16 Resp 16 03/14/25 06:16 BP 110/72 03/14/25 06:16 Pulse Ox 100 03/14/25 06:16 O2 Del Method Room Air 03/14/25 06:16 BMI result Body Mass Index 22.3 Appearance: Alert. Oriented X3. No acute distress. Eyes: PERRLA, No Nystagmus ENT: Pharynx normal. Oral Mucosa moist Neck: Normal inspection. Neck supple. CVS: Normal heart rate and rhythm. Pulses normal. Respiratory: No respiratory distress. Equal air entry bilateral, no wheezing/rales/rhonchi Abdomen: Soft and nontender. Bowel sounds are present, no mass palpable, no CVA tenderness Skin: Skin warm and dry. Normal skin color. Normal skin turgor. Extremities: No lower extremity edema. No calf tenderness Back: diffuse tenderness bilateral lumbar spinal area SLR negative bilaterally deep tendon reflexes intact Neuro: Oriented X 3. No motor deficit. No sensory deficit.No cerebellar signs , cranial nerves II-XII intact Medical Decision Making Medical Decision Making MDM Narrative: Patient has chronic back pain will prescribe meloxicam advised to follow with PCP Lab Data MDM Lab Attestation statement: I reviewed the patient's lab results. 03/14/25 00:55 03/14/25 00:55 Labs: Lab Results 03/14/25 Range/Units 00:55 WBC 6.7 (4.8-10.8) X10*3/uL RBC 3.94 L (4.60-5.80) X10*6/uL Hgb 14.5 (14.0-18.0) g/dl Hct 39.4 L (42.0-52.0) % MCV 100.0 H (80.0-98.0) fL MCH 36.8 H (27.0-33.0) pg MCHC 36.8 H (31.0-36.0) g/dl RDW 12.9 (11.0-16.0) % Plt Count 153 L D (160-400) X10*3/uL MPV 9.9 (9.4-12.4) fL Immature Gran % (Auto) 0.3 (0.0-0.4) % Neut % (Auto) 37.6 L (45-73) % Lymph % (Auto) 44.2 H (20-40) % [place] % (Auto) 13.9 H (2-11) % Eos % (Auto) 3.1 (0-4) % Baso % (Auto) 0.9 (0-2) % Lymph # (Auto) 3.0 (1.2-4.9) X10*3/uL [place] # (Auto) 0.9 (0.1-1.2) X10*3/uL Eos # (Auto) 0.2 (0.0-0.4) X10*3/uL Baso # (Auto) 0.1 (0.0-0.2) X10*3/uL Abs Immat Gran (auto) 0.02 (0.00-0.03) X10*3/uL Absolute Neuts (auto) 2.5 (2.0-8.3) x10*3/uL Absolute Nucleated RBC 0.000 (0.0-0.012) X10*3/uL Nucleated RBC % (auto) 0.0 (0.0-0.2) /100WBC Sodium 142 (135-145) mmol/L Potassium 3.4 (3.3-5.1) mmol/L Chloride 100 (96-108) mmol/L Carbon Dioxide 30 H (22-29) mmol/L Anion Gap 15 (12-20) BUN 10 (9-16) mg/dL Creatinine 1.00 (0.5-1.4) mg/dL Estim Creat Clear Calc 90.7 Estimated GFR > 60 Random Glucose 130 H (60-115) mg/dL Calcium 9.1 D (8.4-10.2) mg/dL Total Bilirubin 0.4 (0.0-1.0) mg/dL Direct Bilirubin 0.2 (0.0-0.5) mg/dL AST 122 H (5-37) U/L ALT 79 H (0-40) U/L Alkaline Phosphatase 156 H (39-117) U/L Total Protein 6.4 L (6.5-8.0) g/dL Albumin 4.0 (3.5-5.0) g/dL Discharge Plan Discharge Clinical Impression: Chronic low back pain Patient Disposition: Home, Self-Care Instructions: Chronic Back Pain (DC) Additional Instructions: Continue take your medications Pain medication as prescribed Follow up with the pain clinic Prescriptions: New meloxicam 7.5 mg tablet 7.5 mg PO DAILY Qty: 20 0RF No Action (DME) insulin syringe-needle U-100 [BD Insulin Syringe] 0.3 mL 29 gauge x 1/2 syringe See Rx Instructions .ROUTE .MEDSUPPLY Qty: 150 5RF Rx Instructions: 4 times a day (DME) pen needle, diabetic [BD Felisha 2nd Gen Pen Needle] 32 gauge x 5/32 needle See Rx Instructions .ROUTE .MEDSUPPLY Qty: 50 4RF Rx Instructions: once a day (DME) 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 meter [FreeStyle Lite Meter] Kit See Rx Instructions .Route Qty: 1 0RF Rx Instructions: As directed-checks 4 X/day insulin lispro 100 unit/mL solution See Rx Instructions .ROUTE .COMPLEX Qty: 30 11RF Rx Instructions: UP TO 100 UNITS DAILY VIA INSULIN PUMP (TANDEM TSLIM x2) (DME) Tandem Mobi System Misc MISCELLANEOUS Rx Instructions: UP TO 100 UNITS INSULIN LISPRO DAILY VIA PUMP fluticasone propion-salmeterol [Advair Diskus] 250-50 mcg/dose Blister With Device 1 inh INHALATION BID PRN (Reason: Shortness Of Breath Or Wheezing) albuterol sulfate [Ventolin HFA] 90 mcg/actuation Hfa Aerosol Inhaler 2 puff INHALATION Q4H PRN (Reason: Respiratory Distress) omeprazole 40 mg Capsule,Delayed Release(Dr/Ec) 40 mg PO BID@0630,1630 Qty: 180 0RF clonidine HCl 0.1 mg tablet 0.1 mg PO DAILY PRN (Reason: Anxiety) cholecalciferol (vitamin D3) 25 mcg (1,000 unit) tablet 25 mcg PO DAILY Baqsimi 3 mg/actuation spray,non-aerosol 3 mg intranasal DAILY PRN (Reason: Hypoglycemia) cyanocobalamin (vitamin B-12) [Vitamin B-12] 1,000 mcg Tablet 1,000 mcg PO DAILY vitamin B complex Tablet 1 tab PO DAILY amlodipine 10 mg Tablet 10 mg PO DAILY Qty: 90 0RF Protocol: Hold for SBP< HOLD for SBP < : 90 chlordiazepoxide HCl 25 mg capsule 50 mg PO Q4H PRN (Reason: alcohol withdrawal) Qty: 12 0RF Rx Instructions: until symptoms controlled cyclobenzaprine 5 mg tablet 5 mg PO TID PRN (Reason: muscle spasm) cyclobenzaprine 10 mg tablet 10 mg PO TID PRN (Reason: muscle spasm) Qty: 10 0RF acetaminophen [Tylenol Extra Strength] 500 mg tablet 500 mg PO Q6H PRN (Reason: fever or pain) Qty: 14 0RF lidocaine [Lidoderm] 5 % adhesive patch,medicated 1 patch topical DAILY MDD remove after 12 hours PRN (Reason: pain) Qty: 30 0RF Rx Instructions: leave on most painful area for up to 12 hrs morphine 15 mg tablet 15 mg PO Q6H PRN (Reason: pain (scale score 7-10)) 3 Days Qty: 5 0RF Rx Instructions: Partial Fill upon patient request. naproxen 500 mg tablet 500 mg PO BID PRN (Reason: pain) 10 Days Qty: 20 0RF clonazepam 0.5 mg tablet 0.5 mg PO BEDTIME PRN (Reason: Anxiety) Rx Instructions: AT BEDTIME (DME) FreeStyle Lite Strips Strip See Rx Instructions .ROUTE .MEDSUPPLY Qty: 300 11RF Rx Instructions: 4x daily (DME) lancets [FreeStyle Lancets] 28 gauge misc See Rx Instructions .Route Qty: 100 5RF Rx Instructions: As directed 4 X/day (DME) Ketone Urine Test Strip See Rx Instructions .ROUTE .MEDSUPPLY Qty: 25 1RF Rx Instructions: prn tid for nausea, vomiting, illness, glucose remaining over 250 Interventions: ED Discharge Assessment Last Done: 03/14/25 06:16 Discharge Date/Time: 03/14/25 06:23 Print Language: Gambian
[2025-03-14 02:22] LABS: Alkaline Phosphatase 156 U/L (39-117)
[2025-03-14 06:09] VITALS: BP 110/72; PULSE 81; RESP 16; TEMP 36.4; O2SAT 100
[2025-03-14 06:16] VITALS: BP 110/72; PULSE 81; RESP 16; TEMP 36.4; O2SAT 100
== END 2025-03-14 06:23 | disposition home or self-care (01) ==
PROVIDERS: Emergency Provider Internal Medicine
DX: G89.29 Other chronic pain (principal); M54.50 Low back pain, unspecified
CPT/HCPCS: 36415; 80048; 80076; 85025; 99283; 99284

== ENCOUNTER 2025-03-28 18:46 | Emergency (ER) | payer MEDICAID, SELFPAY ==
[2025-03-28 19:14] VITALS: BP 148/80; PULSE 93; RESP 16; TEMP 36.4; O2SAT 99; BMI 21.2
--- NOTE | 2025-03-28 19:16 | ED_ITS ---
HPI - General Adult General Chief complaint: Back Pain/Injury Stated complaint: Back spasm Time Seen by Provider: 03/28/25 22:55 Source: patient and old records reviewed Mode of arrival: ambulatory Limitations: no limitations History of Present Illness ED Provider: SVETA LEWIS narrative: 49 yo male with PMH of HTN, depression, IDDM, PVD, chronic back pain who presents with c/o worsening acute on chronic back pain but no new numbness (chronic foot weakness), saddle anesthesia, b/b incontinence, no fevers. He states he has pain management appointment coming up. He notes he takes his medications as prescribed. He states when he comes here they usually give a few days of pain medications and that's what he needs. MD complaint: back pain Onset (ago): year(s) Location: back Radiation: back Severity: moderate Quality: aching and constant Pain Consistency: constant Relieving factors: none Exacerbating factors: movement Associated symptoms: denies other symptoms Treatments prior to arrival: other Related Data Home Medications ?Medication ?Instructions ?Recorded ?Confirmed clonazepam 0.5 mg tablet 0.5 mg PO BEDTIME PRN Anxiety 07/16/21 02/12/25 albuterol sulfate 90 mcg/actuation 2 puff inhalation Q4H PRN 12/29/24 02/12/25 aerosol inhaler (Ventolin HFA) Respiratory Distress fluticasone 250 mcg-salmeterol 50 1 inh inhalation BID PRN Shortness 12/29/24 02/12/25 mcg/dose blistr powdr for Of Breath Or Wheezing inhalation (Advair Diskus) subcutaneous insulin pump (Tandem 12/29/24 02/12/25 Mobi System) cholecalciferol (vitamin D3) 25 25 mcg PO DAILY 01/16/25 02/12/25 mcg (1,000 unit) tablet clonidine HCl 0.1 mg tablet 0.1 mg PO DAILY PRN Anxiety 01/16/25 02/12/25 cyanocobalamin (vitamin B-12) 1,000 mcg PO DAILY 01/16/25 02/12/25 1,000 mcg tablet (Vitamin B-12) glucagon 3 mg/actuation nasal 3 mg intranasal DAILY PRN 01/16/25 02/12/25 spray (Baqsimi) Hypoglycemia vitamin B complex 1 tab PO DAILY 01/16/25 02/12/25 cyclobenzaprine 5 mg tablet 5 mg PO TID PRN muscle spasm 02/12/25 02/12/25 Previous Rx's ?Medication ?Instructions ?Recorded insulin syringe-needle U-100 0.3 #150 ea 08/29/20 mL 29 gauge x 1/2 (BD Insulin Syringe) pen needle, diabetic 32 gauge x #50 ea 08/29/20 5/32 (BD Felisha 2nd Gen Pen Needle) 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 meter (FreeStyle #1 ea 10/22/22 Lite Meter kit) blood sugar diagnostic (FreeStyle #300 ea 02/19/23 Lite Strips) lancets 28 gauge (FreeStyle #100 ea 02/19/23 Lancets) omeprazole 40 mg capsule,delayed 40 mg PO BID@0630,1630 #180 caps 02/06/24 release acetone (urine) test (Ketone Urine #25 ea 11/02/24 Test strips) amlodipine 10 mg tablet 10 mg PO DAILY #90 tabs 01/19/25 chlordiazepoxide HCl 25 mg capsule 50 mg (2 x 25 mg) PO Q4H PRN 02/10/25 alcohol withdrawal 6 doses #12 caps insulin lispro 100 unit/mL See Rx Instructions .Route 02/22/25 subcutaneous solution .COMPLEX #30 mL acetaminophen 500 mg tablet 500 mg PO Q6H PRN fever or pain 03/04/25 (Tylenol Extra Strength) #14 tabs cyclobenzaprine 10 mg tablet 10 mg PO TID PRN muscle spasm #10 03/04/25 tabs lidocaine 5 % topical patch 1 patch topical DAILY PRN pain #30 03/04/25 (Lidoderm) ea morphine 15 mg immediate release 15 mg PO Q6H PRN pain (scale score 03/04/25 tablet 7-10) 3 days #5 tabs naproxen 500 mg tablet 500 mg PO BID PRN pain 10 days #20 03/04/25 tabs meloxicam 7.5 mg tablet 7.5 mg PO DAILY #20 tabs 03/14/25 Allergies Allergy/AdvReac Type Severity Reaction Status Date / Time hydroxyzine [From VISTARIL] Allergy Intermediate RASH, Verified 03/28/25 19:17 ANXIOUS quetiapine [Seroquel] AdvReac Intermediate Unknown Verified 03/28/25 19:17 Review of Systems 2 Review of Systems: Constitutional : No Weight loss, No Fever, No Chills, ENT/Mouth : No Hearing loss, No Ear Pain, No Nasal Congestion, No Sinus Pain, No Hoarseness, No sore throat, No Rhinorrhea, No Swallowing Difficulty Cardiovascular : No Chest Pain, No SOB Respiratory : No Cough, No Dyspnea Gastrointestinal : No Nausea, No Vomiting, No Diarrhea, No abdominal Pain, No Hematochezia, No Melena Genitourinary : No Dysuria, No Urinary Frequency, No Hematuria, No Urinary Incontinence, Musculoskeletal : positive back pain Skin : No Skin Lesions, No rash Neuro : No Weakness, No Numbness, No Paresthesias, no loss of bowel or bladder incontinence, no saddle anesthesia all other systems reviewed and are negative PMFSH Past Medical History Attestation statement: The following information was validated with the patient. Source: old records reviewed Medical History Constipation History of methadone use Intravenous drug user Peripheral vascular disease Elevated liver function tests Polysubstance abuse Osteoarthritis Type 1 diabetes History of drug abuse Depression Vitamin D deficiency 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 Mother No problems noted. Social History Social History Household Members: Family Household Members Other:: mother Housing: House Do you presently have visiting nurse or other home services: No Alcohol intake: current Alcohol intake frequency: 3 or more drinks per day Alcohol type: beer Patient Tobacco Use Status: Current everyday Tobacco user Tobacco use type: Cigarette Cigarettes Per Day: 3 Years Smoked: 33 e-Cigarette/Vaping Use: Currently Using Second Hand Smoke Exposure: No Substance Use Type: Marijuana Advance Directives: Yes Advance Directives on File: Yes Advance Directives Date on File: 08/29/20 Do you have a plan to hurt others: No Plan service: No Current occupational status: unemployed Physical Exam ED Vital Signs: Vital Signs - 24 hr 03/28/25 19:14 Temperature 97.5 F Pulse Rate 93 Respiratory Rate 16 Blood Pressure 148/80 H Pulse Oximetry 99 Oxygen Delivery Method Room Air BMI result Body Mass Index 21.2 Appearance: Alert. Oriented X3. No acute distress. Eyes: Pupils equal, round and reactive to light. ENT: Pharynx normal. Neck: Normal inspection. Neck supple. CVS: Normal heart rate and rhythm. Pulses normal. Respiratory: No respiratory distress. Breath sounds normal. Abdomen: Soft and nontender. Back: ttp along posterior spine paraspinal lumbar Skin: Skin warm and dry. Normal skin color. Normal skin turgor. Extremities: No lower extremity edema. No calf ttp Neuro: Oriented X 3. No motor deficit. No sensory deficit. CN2-12 intact walking and crossing his legs while standing Course Course Course Narrative: RME, this is a rapid medical exam performed by Oscar Ott please refer to primary provider for complete H&P- 49 year old male presents for evaluation of right lower back pain. He is due to see pain management in 2 weeks. Plan for labs and a UA Medications Administered Discontinued Medications Generic Name Dose Route Start Last Admin Trade Name Marloq PRN Reason Stop Dose Admin Morphine Sulfate 15 mg 03/28/25 22:57 03/28/25 23:03 Morphine Sulfate Immed Release 15 Mg Tablet PO 03/28/25 22:58 15 mg ONCE ONE Administration Ondansetron HCl 4 mg 03/28/25 22:57 03/28/25 23:03 Ondansetron Odt 4 Mg Tab.Rapdis TRANSLINGU 03/28/25 22:58 4 mg ONCE ONE Administration Medical Decision Making Medical Decision Making [facility] Narrative: 49 yo male with PMH of HTN, depression, IDDM, PVD, chronic back pain who presents with c/o back pain but no cauda equina symptoms. Patient has no fevers, he is walking around. Given his [employer] I do not feel comfortable prescribing him narcotics. He can get a one time dose here. He is up and walking and he is tolerating PO. Labs reassuring today. Differential Diagnosis Differential Diagnoses: The differential diagnosis associated with the presentation includes back pain, strain Admission/Observation Consideration of admission/observation: Escalation of care including admission/observation considered tolerating PO and standing and walking without issue Lab Data [facility] Lab Attestation statement: I reviewed the patient's lab results. 03/28/25 19:29 03/28/25 19:29 Labs: Lab Results 03/28/25 Range/Units 19:29 WBC 8.1 (4.8-10.8) X10*3/uL RBC 3.91 L (4.60-5.80) X10*6/uL Hgb 14.2 (14.0-18.0) g/dl Hct 39.8 L (42.0-52.0) % MCV 101.8 H (80.0-98.0) fL MCH 36.3 H (27.0-33.0) pg MCHC 35.7 (31.0-36.0) g/dl RDW 13.3 (11.0-16.0) % Plt Count 236 D (160-400) X10*3/uL MPV 9.0 L (9.4-12.4) fL Immature Gran % (Auto) 0.1 (0.0-0.4) % Neut % (Auto) 53.0 (45-73) % Lymph % (Auto) 33.3 (20-40) % Stone % (Auto) 11.7 H (2-11) % Eos % (Auto) 0.9 (0-4) % Baso % (Auto) 1.0 (0-2) % Lymph # (Auto) 2.7 (1.2-4.9) X10*3/uL Stone # (Auto) 1.0 (0.1-1.2) X10*3/uL Eos # (Auto) 0.1 (0.0-0.4) X10*3/uL Baso # (Auto) 0.1 (0.0-0.2) X10*3/uL Abs Immat Gran (auto) 0.01 (0.00-0.03) X10*3/uL Absolute Neuts (auto) 4.3 (2.0-8.3) x10*3/uL Absolute Nucleated RBC 0.000 (0.0-0.012) X10*3/uL Nucleated RBC % (auto) 0.0 (0.0-0.2) /100WBC Sodium 143 (135-145) mmol/L Potassium 4.1 D (3.3-5.1) mmol/L Chloride 110 H (96-108) mmol/L Carbon Dioxide 27 (22-29) mmol/L Anion Gap 10 L (12-20) BUN 11 (9-16) mg/dL Creatinine 0.93 (0.5-1.4) mg/dL Estim Creat Clear Calc 92.4 Estimated GFR > 60 Random Glucose 81 (60-115) mg/dL Calcium 8.8 (8.4-10.2) mg/dL Total Bilirubin 0.4 (0.0-1.0) mg/dL AST 89 H (5-37) U/L ALT 66 H (0-40) U/L Alkaline Phosphatase 137 H (39-117) U/L Total Protein 6.4 L (6.5-8.0) g/dL Albumin 4.0 (3.5-5.0) g/dL Lipase 7 L (8-78) U/L External Record Review External record reviewed: Outpatient record Prescription Management I considered prescription management with: Pain Medication Discharge Plan Discharge Clinical Impression: Chronic back pain Patient Disposition: Home, Self-Care Instructions: Chronic Pain (ED), Back Pain (ED) Additional Instructions: labs reassuring please call your primary care doctor tomorrow for chronic pain management return for any worsening symptoms or concerns Prescriptions: No Action (DME) insulin syringe-needle U-100 [BD Insulin Syringe] 0.3 mL 29 gauge x 1/2 syringe See Rx Instructions .ROUTE .MEDSUPPLY Qty: 150 5RF Rx Instructions: 4 times a day (DME) pen needle, diabetic [BD Felisha 2nd Gen Pen Needle] 32 gauge x 5/32 needle See Rx Instructions .ROUTE .MEDSUPPLY Qty: 50 4RF Rx Instructions: once a day (DME) 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 meter [FreeStyle Lite Meter] Kit See Rx Instructions .Route Qty: 1 0RF Rx Instructions: As directed-checks 4 X/day insulin lispro 100 unit/mL solution See Rx Instructions .ROUTE .COMPLEX Qty: 30 11RF Rx Instructions: UP TO 100 UNITS DAILY VIA INSULIN PUMP (TANDEM TSLIM x2) (DME) Tandem Mobi System Misc MISCELLANEOUS Rx Instructions: UP TO 100 UNITS INSULIN LISPRO DAILY VIA PUMP fluticasone propion-salmeterol [Advair Diskus] 250-50 mcg/dose Blister With Device 1 inh INHALATION BID PRN (Reason: Shortness Of Breath Or Wheezing) albuterol sulfate [Ventolin HFA] 90 mcg/actuation Hfa Aerosol Inhaler 2 puff INHALATION Q4H PRN (Reason: Respiratory Distress) meloxicam 7.5 mg tablet 7.5 mg PO DAILY Qty: 20 0RF omeprazole 40 mg Capsule,Delayed Release(Dr/Ec) 40 mg PO BID@0630,1630 Qty: 180 0RF clonidine HCl 0.1 mg tablet 0.1 mg PO DAILY PRN (Reason: Anxiety) cholecalciferol (vitamin D3) 25 mcg (1,000 unit) tablet 25 mcg PO DAILY Baqsimi 3 mg/actuation spray,non-aerosol 3 mg intranasal DAILY PRN (Reason: Hypoglycemia) cyanocobalamin (vitamin B-12) [Vitamin B-12] 1,000 mcg Tablet 1,000 mcg PO DAILY vitamin B complex Tablet 1 tab PO DAILY amlodipine 10 mg Tablet 10 mg PO DAILY Qty: 90 0RF Protocol: Hold for SBP< HOLD for SBP < : 90 chlordiazepoxide HCl 25 mg capsule 50 mg PO Q4H PRN (Reason: alcohol withdrawal) Qty: 12 0RF Rx Instructions: until symptoms controlled cyclobenzaprine 5 mg tablet 5 mg PO TID PRN (Reason: muscle spasm) cyclobenzaprine 10 mg tablet 10 mg PO TID PRN (Reason: muscle spasm) Qty: 10 0RF acetaminophen [Tylenol Extra Strength] 500 mg tablet 500 mg PO Q6H PRN (Reason: fever or pain) Qty: 14 0RF lidocaine [Lidoderm] 5 % adhesive patch,medicated 1 patch topical DAILY MDD remove after 12 hours PRN (Reason: pain) Qty: 30 0RF Rx Instructions: leave on most painful area for up to 12 hrs morphine 15 mg tablet 15 mg PO Q6H PRN (Reason: pain (scale score 7-10)) 3 Days Qty: 5 0RF Rx Instructions: Partial Fill upon patient request. naproxen 500 mg tablet 500 mg PO BID PRN (Reason: pain) 10 Days Qty: 20 0RF clonazepam 0.5 mg tablet 0.5 mg PO BEDTIME PRN (Reason: Anxiety) Rx Instructions: AT BEDTIME (DME) FreeStyle Lite Strips Strip See Rx Instructions .ROUTE .MEDSUPPLY Qty: 300 11RF Rx Instructions: 4x daily (DME) lancets [FreeStyle Lancets] 28 gauge misc See Rx Instructions .Route Qty: 100 5RF Rx Instructions: As directed 4 X/day (DME) Ketone Urine Test Strip See Rx Instructions .ROUTE .MEDSUPPLY Qty: 25 1RF Rx Instructions: prn tid for nausea, vomiting, illness, glucose remaining over 250 Discharge Date/Time: 03/28/25 23:14 Print Language: Eritrean
[2025-03-28 19:33] LABS: MANUAL DIFF FLAG NO
[2025-03-28 19:34] LABS: Basophils Absolute Auto 0.1 X10*3/uL (0.0-0.2); Eosinophils Absolute Auto 0.1 X10*3/uL (0.0-0.4); Eosinophils Percent Auto 0.9 % (0-4); Hematocrit 39.8 % (42.0-52.0); Hemoglobin 14.2 g/dl (14.0-18.0); Imm Gran Abs Auto 0.01 X10*3/uL (0.00-0.03); Imm Gran Pct Auto 0.1 % (0.0-0.4); Lymphocytes Absolute Auto 2.7 X10*3/uL (1.2-4.9); Lymphocytes Percent Auto 33.3 % (20-40); Mean Corpuscular HGB Conc 35.7 g/dl (31.0-36.0); Mean Corpuscular Hemoglobin 36.3 pg (27.0-33.0); Mean Corpuscular Volume 101.8 fL (80.0-98.0); Monocytes Percent Auto 11.7 % (2-11); Neutrophils Absolute Auto 4.3 x10*3/uL (2.0-8.3); Platelet Count 236 X10*3/uL (160-400); Red Blood Count 3.91 X10*6/uL (4.60-5.80); Red Cell Distribution Width 13.3 % (11.0-16.0); White Blood Count 8.1 X10*3/uL (4.8-10.8)
[2025-03-28 19:56] LABS: Alanine Aminotransferase 66 U/L (0-40); Alkaline Phosphatase 137 U/L (39-117); Anion Gap 10 (12-20); Aspartate Amino Transferase 89 U/L (5-37); Bilirubin Total 0.4 mg/dL (0.0-1.0); Blood Urea Nitrogen 11 mg/dL (9-16); Calcium 8.8 mg/dL (8.4-10.2); Carbon Dioxide 27 mmol/L (22-29); Chloride 110 mmol/L (96-108); Creatinine Clr Calc Pharmacy 92.4; Estimated Glomerular Filt Rate > 60; Glucose Random 81 mg/dL (60-115); Lipase 7 U/L (8-78); Potassium 4.1 mmol/L (3.3-5.1); Sodium 143 mmol/L (135-145); Total Protein 6.4 g/dL (6.5-8.0)
[2025-03-28] MEDS: Ondansetron ODT 4 MG TAB.RAPDIS TRANSLINGU (23:03)
[2025-03-28] MEDS: Morphine Sulfate Immed Release 15 MG TABLET PO (23:03)
== END 2025-03-28 23:14 | disposition home or self-care (01) ==
PROVIDERS: Physician Assistant; Emergency Provider Emergency Medicine
DX: G89.29 Other chronic pain (principal); M54.9 Dorsalgia, unspecified; M51.362 Other intervertebral disc degeneration, lumbar region with discogenic back pain and lower extremity pain; I10 Essential (primary) hypertension; E10.9 Type 1 diabetes mellitus without complications; F17.210 Nicotine dependence, cigarettes, uncomplicated; Z79.4 Long term (current) use of insulin; Z79.899 Other long term (current) drug therapy
CPT/HCPCS: 36415; 80053; 83690; 85025; 99282; 99283

== ENCOUNTER 2025-04-06 01:28 | Emergency (ER) | payer MEDICAID, SELFPAY ==
[2025-04-06 01:48] VITALS: BP 145/79; PULSE 96; RESP 18; TEMP 36.4; O2SAT 98; BMI 21.0
--- OUTSIDE RECORDS SUMMARY | 2025-04-06 02:16 | XMS_ITS | Encounter Summary ---
Author Organization [facility] Address [address] [place] [address] Phone Care Team Providers Care Transit Mechanic Name Role Phone Niru Crawford Primary Care Provider [phone] Encounter Details Date Type Department Care Team (Late st Contact Info) Description 09/30/2023 Documentation Only [facility] [address] [place] [id number] Linda Carrasquillo NP Social History Tobacco Use [...] Visit [facility] [address] [place] [address] Juan Yee MD [address] [place] [address] [place] [address] documented as of this encounter Visit Diagnoses Not on filedocumented in this encounter Care Teams Transit Mechanic Relationship Specialty Start Date End Date Yvette Niru [address] [place] [address] PCP - General 11/08/24 documented as of this encounter
--- NOTE | 2025-04-06 02:36 | ED.GENADULT ---
HPI - General Adult General Chief complaint: Back Pain/Injury Stated complaint: back spasms & abd pain Time Seen by Provider: 04/06/25 01:59 Source: patient Mode of arrival: ambulatory Limitations: no limitations History of Present Illness ED Provider: Dr. Shelby Dickerson HPI narrative: Patient comes to the emergency room complaining of lower back pain. Patient states that he feels pressure going from his lumbar area radiating upward to the back of his eyes. Patient denies eye pain, however patient is complaining of the pressure backing up from his back all the way up to behind the orbital area. Complaining of nausea. Patient states that he has been here multiple times for the same complaint. Patient states that he was recently seen by the pain management clinic less than a week ago. Patient denies any acute symptoms. Patient denies any urinary/fecal incontinence/retention. Patient denies any recent IV drug use. Related Data Home Medications ?Medication ?Instructions ?Recorded ?Confirmed clonazepam 0.5 mg tablet 0.5 mg PO BEDTIME PRN Anxiety 07/16/21 02/12/25 albuterol sulfate 90 mcg/actuation 2 puff inhalation Q4H PRN 12/29/24 02/12/25 aerosol inhaler (Ventolin HFA) Respiratory Distress fluticasone 250 mcg-salmeterol 50 1 inh inhalation BID PRN Shortness 12/29/24 02/12/25 mcg/dose blistr powdr for Of Breath Or Wheezing inhalation (Advair Diskus) subcutaneous insulin pump (Tandem 12/29/24 02/12/25 Mobi System) cholecalciferol (vitamin D3) 25 25 mcg PO DAILY 01/16/25 02/12/25 mcg (1,000 unit) tablet clonidine HCl 0.1 mg tablet 0.1 mg PO DAILY PRN Anxiety 01/16/25 02/12/25 cyanocobalamin (vitamin B-12) 1,000 mcg PO DAILY 01/16/25 02/12/25 1,000 mcg tablet (Vitamin B-12) glucagon 3 mg/actuation nasal 3 mg intranasal DAILY PRN 01/16/25 02/12/25 spray (Baqsimi) Hypoglycemia vitamin B complex 1 tab PO DAILY 01/16/25 02/12/25 cyclobenzaprine 5 mg tablet 5 mg PO TID PRN muscle spasm 02/12/25 02/12/25 Previous Rx's ?Medication ?Instructions ?Recorded insulin syringe-needle U-100 0.3 #150 ea 08/29/20 mL 29 gauge x 1/2 (BD Insulin Syringe) pen needle, diabetic 32 gauge x #50 ea 08/29/20/32 (BD Felisha 2nd Gen Pen Needle) 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 meter (FreeStyle #1 ea 10/22/22 Lite Meter kit) blood sugar diagnostic (FreeStyle #300 ea 02/19/23 Lite Strips) lancets 28 gauge (FreeStyle #100 ea 02/19/23 Lancets) omeprazole 40 mg capsule,delayed 40 mg PO BID@0630,1630 #180 caps 02/06/24 release acetone (urine) test (Ketone Urine #25 ea 11/02/24 Test strips) amlodipine 10 mg tablet 10 mg PO DAILY #90 tabs 01/19/25 chlordiazepoxide HCl 25 mg capsule 50 mg (2 x 25 mg) PO Q4H PRN 02/10/25 alcohol withdrawal 6 doses #12 caps insulin lispro 100 unit/mL See Rx Instructions .Route 02/22/25 subcutaneous solution .COMPLEX #30 mL acetaminophen 500 mg tablet 500 mg PO Q6H PRN fever or pain 03/04/25 (Tylenol Extra Strength) #14 tabs cyclobenzaprine 10 mg tablet 10 mg PO TID PRN muscle spasm #10 03/04/25 tabs lidocaine 5 % topical patch 1 patch topical DAILY PRN pain #30 03/04/25 (Lidoderm) ea morphine 15 mg immediate release 15 mg PO Q6H PRN pain (scale score 03/04/25 tablet 7-10) 3 days #5 tabs naproxen 500 mg tablet 500 mg PO BID PRN pain 10 days #20 03/04/25 tabs meloxicam 7.5 mg tablet 7.5 mg PO DAILY #20 tabs 03/14/25 baclofen 10 mg tablet 10 mg PO BID PRN muscle spasm #20 04/06/25 tabs Allergies Allergy/AdvReac Type Severity Reaction Status Date / Time hydroxyzine (From VISTARIL) Allergy Intermediate RASH, Verified 04/06/25 01:52 ANXIOUS quetiapine (Seroquel) AdvReac Intermediate Unknown Verified 04/06/25 01:52 Review of Systems Review of Systems: Constitutional : No Weight loss, No Fever, No Chills, No Night Sweats, No Fatigue, No Malaise ENT/Mouth : No Hearing loss, No Ear Pain, No Nasal Congestion, No Sinus Pain, No Hoarseness, No sore throat, No Rhinorrhea, No Swallowing Difficulty Eyes: No Eye Pain, No Swelling, No Redness, No Foreign Body, No Discharge, No Vision Changes Cardiovascular : No Chest Pain, No SOB, No Dyspnea on Exertion, No Orthopnea, No Edema, No Palpitations Respiratory : No Cough, No Sputum, No Wheezing, No Smoke Exposure, No Dyspnea Gastrointestinal : No Nausea, No Vomiting, No Diarrhea, No Constipation, No abdominal Pain, No Hematochezia, No Melena Genitourinary : no irregular bleeding, No Dysuria, No Urinary Frequency, No Hematuria, No Urinary Incontinence, No Urgency, No Flank Pain, No Urinary Flow Changes, No Hesitancy Musculoskeletal : No joint pain, No Myalgias, No Joint Swelling. Patient complaining of chronic back pain, no acute symptoms, patient states that he feels a pressure radiating from his lumbar area to the back of his eyeballs. Skin : No Skin Lesions, No rash Neuro : No Weakness, No Numbness, No Paresthesias, No Loss of Consciousness, No Dizziness, No Headache Psych : No Anxiety/Panic, No Depression, No SI/HI/AH/VH, No Social Issues, Heme/Lymph: No Bruising, No Bleeding,No Lymphadenopathy Endocrine : No Polyuria, No Polydipsia, No Temperature Intolerance PMFSH Past Medical History Medical History Constipation History of methadone use Intravenous drug user Peripheral vascular disease Elevated liver function tests Polysubstance abuse Osteoarthritis Type 1 diabetes History of drug abuse Depression Vitamin D deficiency 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 Mother No problems noted. Social History Social History Household Members: Family Household Members Other:: mother Housing: House Do you presently have visiting nurse or other home services: No Alcohol intake: current Alcohol intake frequency: 3 or more drinks per day Alcohol type: beer Patient Tobacco Use Status: Current everyday Tobacco user Tobacco use type: Cigarette Cigarettes Per Day: 3 Years Smoked: 33 e-Cigarette/Vaping Use: Currently Using Second Hand Smoke Exposure: No Substance Use Type: Marijuana Advance Directives: Yes Advance Directives on File: Yes Advance Directives Date on File: 08/29/20 service: No Current occupational status: unemployed Physical Exam ED Vital Signs: Vital Signs - 24 hr 04/06/25 01:48 Temperature 97.5 F Pulse Rate 96 Respiratory Rate 18 Blood Pressure 145/79 H Pulse Oximetry 98 Oxygen Delivery Method Room Air BMI result Body Mass Index 21.0 Const Other: Appearance: Alert. Oriented X3. No acute distress. Eyes: Pupils equal, round and reactive to light. ENT: Pharynx normal. Neck: Normal inspection. Neck supple. No lymph nodes noted. No crepitus CVS: Normal heart rate and rhythm. Pulses normal. Normal S1 and S2 Respiratory: No respiratory distress. Breath sounds normal. No Wheezing. No rales Abdomen: Soft and nontender. No rigidity. No distention. Back: Complaining of pain to palpation over the lower right part of the back. Skin: Skin warm and dry. Normal skin color. Normal skin turgor. Extremities: No lower extremity edema. No Lacerations. No Rash Neuro: Oriented X 3. No motor deficit. No sensory deficit. Moving all extremities. No slurred speech. CN 2 through 12 grossly intact Psych: calm, cooperative, normal affect Course Course Course Narrative: Patient complaining of lower back pain radiating towards his eyeballs. Patient states that this pain is chronic, nothing new. However, patient states that this time he has been complaining of nausea no vomiting. Patient states that he feels dehydrated. No recent trauma. No signs or symptoms that would be concerning for cauda equina. Patient receiving IV fluids, Zofran and labs pending. Patient has been seen multiple times for chronic back pain. Patient already being seen by the pain clinic. I discussed with the patient that unfortunately there is not much more that we can do for him in the emergency room. This issue is chronic for him, there is no acute component to his back pain. I discussed with the patient that we can give him p.o. muscle relaxants. Patient agrees with plan. Medications Administered Discontinued Medications Generic Name Dose Route Start Last Admin Trade Name Ethel PRN Reason Stop Dose Admin Baclofen 10 mg 04/06/25 02:35 04/06/25 03:05 Baclofen 10 Mg Tablet PO 04/06/25 02:36 10 mg ONCE ONE Administration Sodium Chloride 1,000 mls @ 999 mls/hr 04/06/25 02:34 04/06/25 03:23 Ns IVCONT 04/06/25 03:34 Not Given .Q1H1M ONE Ondansetron HCl 4 mg 04/06/25 02:34 04/06/25 03:25 Ondansetron Hcl 4 Mg/2 Ml Vial IVPUSH 04/06/25 02:35 Not Given ONCE ONE Medical Decision Making Medical Decision Making [facility] Narrative: My interpretation of labs: Patient's hematology and chemistry are at baseline, no acute abnormalities., glucose 181, not new for the patient, LFTs slightly bumped, chronic and at baseline. No signs of dehydration. Patient was a hard stick, patient states that he prefers to p.o. medication, given Zofran and baclofen p.o.. Patient instructed to follow-up with his chronic pain clinician and his PCP. Lab Data [facility] Lab Attestation statement: I reviewed the patient's lab results. 04/06/25 02:46 04/06/25 02:46 Labs: Lab Results 04/06/25 Range/Units 02:46 WBC 7.1 (4.8-10.8) X10*3/uL RBC 3.72 L (4.60-5.80) X10*6/uL Hgb 13.6 L (14.0-18.0) g/dl Hct 37.4 L (42.0-52.0) % MCV 100.5 H (80.0-98.0) fL MCH 36.6 H (27.0-33.0) pg MCHC 36.4 H (31.0-36.0) g/dl RDW 13.2 (11.0-16.0) % Plt Count 172 D (160-400) X10*3/uL MPV 9.5 (9.4-12.4) fL Immature Gran % (Auto) 0.4 (0.0-0.4) % Neut % (Auto) 48.4 (45-73) % Lymph % (Auto) 34.0 (20-40) % [place] % (Auto) 13.5 H (2-11) % Eos % (Auto) 3.0 (0-4) % Baso % (Auto) 0.7 (0-2) % Lymph # (Auto) 2.4 (1.2-4.9) X10*3/uL [place] # (Auto) 1.0 (0.1-1.2) X10*3/uL Eos # (Auto) 0.2 (0.0-0.4) X10*3/uL Baso # (Auto) 0.1 (0.0-0.2) X10*3/uL Abs Immat Gran (auto) 0.03 (0.00-0.03) X10*3/uL Absolute Neuts (auto) 3.4 (2.0-8.3) x10*3/uL Absolute Nucleated RBC 0.000 (0.0-0.012) X10*3/uL Nucleated RBC % (auto) 0.0 (0.0-0.2) /100WBC Sodium 140 (135-145) mmol/L Potassium 3.7 (3.3-5.1) mmol/L Chloride 106 (96-108) mmol/L Carbon Dioxide 23 (22-29) mmol/L Anion Gap 15 (12-20) BUN 12 (9-16) mg/dL Creatinine 1.40 (0.5-1.4) mg/dL Estim Creat Clear Calc 61.0 Estimated GFR 54 Random Glucose 181 H (60-115) mg/dL Calcium 9.3 (8.4-10.2) mg/dL Total Bilirubin 0.3 (0.0-1.0) mg/dL Direct Bilirubin 0.2 (0.0-0.5) mg/dL AST 55 H (5-37) U/L ALT 47 H (0-40) U/L Alkaline Phosphatase 155 H (39-117) U/L Total Protein 6.0 L (6.5-8.0) g/dL Albumin 3.8 (3.5-5.0) g/dL Discharge Plan Discharge Clinical Impression: Nausea, Chronic pain Patient Disposition: Home, Self-Care Instructions: Chronic Pain (ED), Acute Nausea and Vomiting (ED) Additional Instructions: Please follow-up with your primary care physician tomorrow. If you have any worsening or new symptoms, please return to the emergency room or call 911 Prescriptions: New baclofen 10 mg tablet 10 mg PO BID PRN (Reason: muscle spasm) Qty: 20 0RF Rx Instructions: Do not take this medication before driving or going to work, it may make you feel drowsy. No Action (DME) insulin syringe-needle U-100 [BD Insulin Syringe] 0.3 mL 29 gauge x 1/2 syringe See Rx Instructions .ROUTE .MEDSUPPLY Qty: 150 5RF Rx Instructions: 4 times a day (DME) pen needle, diabetic [BD Felisha 2nd Gen Pen Needle] 32 gauge x 5/32 needle See Rx Instructions .ROUTE .MEDSUPPLY Qty: 50 4RF Rx Instructions: once a day (DME) 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 meter [FreeStyle Lite Meter] Kit See Rx Instructions .Route Qty: 1 0RF Rx Instructions: As directed-checks 4 X/day insulin lispro 100 unit/mL solution See Rx Instructions .ROUTE .COMPLEX Qty: 30 11RF Rx Instructions: UP TO 100 UNITS DAILY VIA INSULIN PUMP (TANDEM TSLIM x2) (DME) Tandem Mobi System Misc MISCELLANEOUS Rx Instructions: UP TO 100 UNITS INSULIN LISPRO DAILY VIA PUMP fluticasone propion-salmeterol [Advair Diskus] 250-50 mcg/dose Blister With Device 1 inh INHALATION BID PRN (Reason: Shortness Of Breath Or Wheezing) albuterol sulfate [Ventolin HFA] 90 mcg/actuation Hfa Aerosol Inhaler 2 puff INHALATION Q4H PRN (Reason: Respiratory Distress) meloxicam 7.5 mg tablet 7.5 mg PO DAILY Qty: 20 0RF omeprazole 40 mg Capsule,Delayed Release(Dr/Ec) 40 mg PO BID@0630,1630 Qty: 180 0RF clonidine HCl 0.1 mg tablet 0.1 mg PO DAILY PRN (Reason: Anxiety) cholecalciferol (vitamin D3) 25 mcg (1,000 unit) tablet 25 mcg PO DAILY Baqsimi 3 mg/actuation spray,non-aerosol 3 mg intranasal DAILY PRN (Reason: Hypoglycemia) cyanocobalamin (vitamin B-12) [Vitamin B-12] 1,000 mcg Tablet 1,000 mcg PO DAILY vitamin B complex Tablet 1 tab PO DAILY amlodipine 10 mg Tablet 10 mg PO DAILY Qty: 90 0RF Protocol: Hold for SBP< HOLD for SBP < : 90 chlordiazepoxide HCl 25 mg capsule 50 mg PO Q4H PRN (Reason: alcohol withdrawal) Qty: 12 0RF Rx Instructions: until symptoms controlled cyclobenzaprine 5 mg tablet 5 mg PO TID PRN (Reason: muscle spasm) cyclobenzaprine 10 mg tablet 10 mg PO TID PRN (Reason: muscle spasm) Qty: 10 0RF acetaminophen [Tylenol Extra Strength] 500 mg tablet 500 mg PO Q6H PRN (Reason: fever or pain) Qty: 14 0RF lidocaine [Lidoderm] 5 % adhesive patch,medicated 1 patch topical DAILY MDD remove after 12 hours PRN (Reason: pain) Qty: 30 0RF Rx Instructions: leave on most painful area for up to 12 hrs morphine 15 mg tablet 15 mg PO Q6H PRN (Reason: pain (scale score 7-10)) 3 Days Qty: 5 0RF Rx Instructions: Partial Fill upon patient request. naproxen 500 mg tablet 500 mg PO BID PRN (Reason: pain) 10 Days Qty: 20 0RF clonazepam 0.5 mg tablet 0.5 mg PO BEDTIME PRN (Reason: Anxiety) Rx Instructions: AT BEDTIME (DME) FreeStyle Lite Strips Strip See Rx Instructions .ROUTE .MEDSUPPLY Qty: 300 11RF Rx Instructions: 4x daily (DME) lancets [FreeStyle Lancets] 28 gauge misc See Rx Instructions .Route Qty: 100 5RF Rx Instructions: As directed 4 X/day (DME) Ketone Urine Test Strip See Rx Instructions .ROUTE .MEDSUPPLY Qty: 25 1RF Rx Instructions: prn tid for nausea, vomiting, illness, glucose remaining over 250 Print Language: Maori
[2025-04-06 02:49] LABS: MANUAL DIFF FLAG NO
[2025-04-06 02:52] LABS: Basophils Absolute Auto 0.1 X10*3/uL (0.0-0.2); Basophils Percent Auto 0.7 % (0-2); Eosinophils Absolute Auto 0.2 X10*3/uL (0.0-0.4); Hematocrit 37.4 % (42.0-52.0); Hemoglobin 13.6 g/dl (14.0-18.0); Imm Gran Abs Auto 0.03 X10*3/uL (0.00-0.03); Imm Gran Pct Auto 0.4 % (0.0-0.4); Lymphocytes Absolute Auto 2.4 X10*3/uL (1.2-4.9); Mean Corpuscular HGB Conc 36.4 g/dl (31.0-36.0); Mean Corpuscular Hemoglobin 36.6 pg (27.0-33.0); Mean Corpuscular Volume 100.5 fL (80.0-98.0); Mean Platelet Volume 9.5 fL (9.4-12.4); Monocytes Percent Auto 13.5 % (2-11); Neutrophils Absolute Auto 3.4 x10*3/uL (2.0-8.3); Neutrophils Percent Auto 48.4 % (45-73); Platelet Count 172 X10*3/uL (160-400); Red Blood Count 3.72 X10*6/uL (4.60-5.80); Red Cell Distribution Width 13.2 % (11.0-16.0); White Blood Count 7.1 X10*3/uL (4.8-10.8)
[2025-04-06] MEDS: Baclofen 10 MG TABLET PO (03:05)
[2025-04-06 03:06] LABS: Alanine Aminotransferase 47 U/L (0-40); Albumin Level 3.8 g/dL (3.5-5.0); Alkaline Phosphatase 155 U/L (39-117); Anion Gap 15 (12-20); Aspartate Amino Transferase 55 U/L (5-37); Bilirubin Direct 0.2 mg/dL (0.0-0.5); Bilirubin Total 0.3 mg/dL (0.0-1.0); Blood Urea Nitrogen 12 mg/dL (9-16); Calcium 9.3 mg/dL (8.4-10.2); Carbon Dioxide 23 mmol/L (22-29); Chloride 106 mmol/L (96-108); Estimated Glomerular Filt Rate 54; Glucose Random 181 mg/dL (60-115); Potassium 3.7 mmol/L (3.3-5.1); Sodium 140 mmol/L (135-145)
--- NOTE | 2025-04-06 03:26 | PC.NURSE ---
attempted IV 3 times unsuccessful. PT requesting PO meds and and po fluids
[2025-04-06] MEDS: Ondansetron ODT 4 MG TAB.RAPDIS TRANSLINGU (03:43)
[2025-04-06 03:47] VITALS: BP 121/84; PULSE 91; RESP 18; TEMP 36; O2SAT 98
[2025-04-06 03:52] VITALS: BP 121/84; PULSE 91; RESP 18; TEMP 36; O2SAT 98
== END 2025-04-06 04:11 | disposition home or self-care (01) ==
PROVIDERS: Emergency Provider Emergency Medicine
DX: M62.830 Muscle spasm of back (principal); R10.2 Pelvic and perineal pain; R11.0 Nausea; G89.29 Other chronic pain; F17.210 Nicotine dependence, cigarettes, uncomplicated; Z79.899 Other long term (current) drug therapy
CPT/HCPCS: 36415; 80048; 80076; 85025; 99282; 99283; J2405

== ENCOUNTER 2025-04-07 11:31 | Outpatient (AMB) | payer MEDICAID, SELFPAY ==
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
[2025-04-07 11:40] VITALS: BP 130/74; PULSE 84; RESP 16; O2SAT 97; BMI 21.1
--- OUTSIDE RECORDS SUMMARY | 2025-04-07 12:46 | XMS_ITS | Encounter Summary ---
Author Organization [facility] Address [address] [place] [address] Phone Care Team Providers Care Student Life Vice President Name Role Phone Niru Crawford Primary Care Provider [phone] Encounter Details Date Type Department Care Team (Late st Contact Info) Description 09/30/2023 Documentation Only [facility] [address] [place] [id number] Linda Carrasquillo NP Social History Tobacco Use [...] [facility] [address] [place] [address] Juan Yee MD [address] [place] [address] [place] [address] documented as of this encounter Visit Diagnoses Not on filedocumented in this encounter Care Teams Student Life Vice President Relationship Specialty Start Date End Date Yvette Nir[address] [place] [address] PCP - General 11/08/24 documented as of this encounter
== END 2025-04-07 12:03 | disposition home or self-care (01) ==
LOC: HO.PMC 11:31
PROVIDERS: Referring Provider Surgery Vascular Surgery; Visit Provider Internal Medicine
DX: M16.0 Bilateral primary osteoarthritis of hip (principal); M51.362 Other intervertebral disc degeneration, lumbar region with discogenic back pain and lower extremity pain; M54.2 Cervicalgia; G89.29 Other chronic pain
CPT/HCPCS: 99204

== ENCOUNTER → 2025-04-07 11:31 | Outpatient (BNVA) | payer MEDICAID, SELFPAY | PROVIDERS: Referring Provider Surgery Vascular Surgery; Visit Provider Internal Medicine | DX: M16.0 Bilateral primary osteoarthritis of hip (principal); M51.362 Other intervertebral disc degeneration, lumbar region with discogenic back pain and lower extremity pain; G89.29 Other chronic pain; M54.2 Cervicalgia | CPT/HCPCS: 99202 ==

== ENCOUNTER 2025-04-17 | Emergency (ER) | payer MEDICAID, SELFPAY ==
[2025-04-17 00:10] VITALS: BP 148/77; PULSE 85; RESP 20; TEMP 36.6; O2SAT 100; BMI 21.6
--- NOTE | 2025-04-17 02:23 | ED.BACK ---
HPI - Back Pain/Injury General Chief Complaint: Back Pain/Injury Stated Complaint: severe back pain Time Seen by Provider: 04/17/25 02:15 Source: patient and old records reviewed Mode of arrival: ambulatory Limitations: no limitations History of Present Illness ED Provider: Dr. Janay Collazo HPI Narrative: 49-year-old male with extensive past medical history including insulin-dependent diabetes, hypertension, chronic back pain presenting with right flank and back pain radiating from ?his eyes to his toes? ongoing for several years and exacerbated over the last 24 hours after a fall. Reports he was seen at [facility] for this fall and had imaging done there which was reportedly negative. He was discharged after a dose of Tylenol. Admits no pain relief and has had continued discomfort since that time. No reported fever. He has a remote history of IV drug use about 15 years ago was his last use. Admits he has been trying to seek help with pain management and has had a difficult time getting medications prescribed. Has been seen multiple times in this emergency department for this reason. Denies numbness/tingling/weakness of the extremities. No saddle anesthesia. No loss of bowel or bladder control. Has been feeling well otherwise. Related Data Home Medications ?Medication ?Instructions ?Recorded ?Confirmed clonazepam 0.5 mg tablet 0.5 mg PO BEDTIME PRN Anxiety 07/16/21 04/07/25 albuterol sulfate 90 mcg/actuation 2 puff inhalation Q4H PRN 12/29/24 04/07/25 aerosol inhaler (Ventolin HFA) Respiratory Distress fluticasone 250 mcg-salmeterol 50 1 inh inhalation BID PRN Shortness 12/29/24 04/07/25 mcg/dose blistr powdr for Of Breath Or Wheezing inhalation (Advair Diskus) subcutaneous insulin pump (Tandem 12/29/24 02/12/25 Mobi System) cholecalciferol (vitamin D3) 25 25 mcg PO DAILY 01/16/25 04/07/25 mcg (1,000 unit) tablet clonidine HCl 0.1 mg tablet 0.1 mg PO DAILY PRN Anxiety 01/16/25 04/07/25 cyanocobalamin (vitamin B-12) 1,000 mcg PO DAILY 01/16/25 04/07/25 1,000 mcg tablet (Vitamin B-12) glucagon 3 mg/actuation nasal 3 mg intranasal DAILY PRN 01/16/25 04/07/25 spray (Baqsimi) Hypoglycemia vitamin B complex 1 tab PO DAILY 01/16/25 04/07/25 Previous Rx's ?Medication ?Instructions ?Recorded insulin syringe-needle U-100 0.3 #150 ea 08/29/20 mL 29 gauge x 1/2 (BD Insulin Syringe) pen needle, diabetic 32 gauge x #50 ea 08/29/20 5/32 (BD Felisha 2nd Gen Pen Needle) 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 meter (FreeStyle #1 ea 10/22/22 Lite Meter kit) blood sugar diagnostic (FreeStyle #300 ea 02/19/23 Lite Strips) lancets 28 gauge (FreeStyle #100 ea 02/19/23 Lancets) omeprazole 40 mg capsule,delayed 40 mg PO BID@0630,1630 #180 caps 02/06/24 release acetone (urine) test (Ketone Urine #25 ea 11/02/24 Test strips) amlodipine 10 mg tablet 10 mg PO DAILY #90 tabs 01/19/25 chlordiazepoxide HCl 25 mg capsule 50 mg (2 x 25 mg) PO Q4H PRN 02/10/25 alcohol withdrawal 6 doses #12 caps insulin lispro 100 unit/mL See Rx Instructions .Route 02/22/25 subcutaneous solution .COMPLEX #30 mL acetaminophen 500 mg tablet 500 mg PO Q6H PRN fever or pain 03/04/25 (Tylenol Extra Strength) #14 tabs lidocaine 5 % topical patch 1 patch topical DAILY PRN pain #30 03/04/25 (Lidoderm) ea naproxen 500 mg tablet 500 mg PO BID PRN pain 10 days #20 03/04/25 tabs meloxicam 7.5 mg tablet 7.5 mg PO DAILY #20 tabs 03/14/25 baclofen 10 mg tablet 10 mg PO BID PRN muscle spasm #20 04/06/25 tabs Allergies Allergy/AdvReac Type Severity Reaction Status Date / Time hydroxyzine (From [facility]ISTAR[facility]) Allergy Intermediate RASH, Verified 04/17/25 00:15 ANXIOUS quetiapine (Seroquel) AdvReac Intermediate Unknown Verified 04/17/25 00:15 Review of Systems Review of Systems: Yes all other systems are reviewed and are negative (As per HPI) [facility] Past Medical History Attestation statement: The following information was validated with the patient. [facility] Narrative: Insulin-dependent diabetes, osteoarthritis, chronic back pain, hypertension, housing and security, remote history of IV drug use, continued tobacco use Source: old records reviewed Medical History Constipation History of methadone use Intravenous drug user Peripheral vascular disease Elevated liver function tests Polysubstance abuse Osteoarthritis Type 1 diabetes History of drug abuse Depression Vitamin D deficiency 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 Mother No problems noted. Social History Social History Household Members: Family Household Members Other:: mother Housing: House Do you presently have visiting nurse or other home services: No Alcohol intake: former Patient Tobacco Use Status: Current everyday Tobacco user Tobacco use type: Cigarette Cigarettes Per Day: 3 Years Smoked: 33 Smoked in Last 30 Days: Yes e-Cigarette/Vaping Use: Currently Using Second Hand Smoke Exposure: No Use of substances other than those prescribed or required for medical reasons: Yes Substance Use Type: Marijuana Substance Use Frequency: Daily Advance Directives: Yes Advance Directives on File: Yes Advance Directives Date on File: 08/29/20 Do you have a plan to hurt others: No Plan service: No Current occupational status: unemployed Physical Exam Vital Signs: Vital Signs: Last Vital Signs Temp 97.8 F 04/17/25 00:10 Pulse 85 04/17/25 00:10 Resp 20 04/17/25 00:10 BP 148/77 H 04/17/25 00:10 Pulse Ox 100 04/17/25 00:10 O2 Del Method Room Air 04/17/25 00:10 BMI result Body Mass Index 21.6 GENERAL: Unkempt, no acute distress. SKIN: Normal skin color for ethnicity, warm, dry, no rashes noted. HEENT: Normocephalic, atraumatic, no stridor, posterior oropharynx nonerythematous, dentition intact, EOMI. NECK: Soft, supple, full ROM, midline structures nontender, no step-offs, no deformities, no lymphadenopathy. CHEST: Heart regular rate and rhythm, no murmurs, symmetric chest rise and fall. PULMONARY: Clear to auscultation bilaterally, no labored breathing, no wheezes/rhales/ rhonchi. ABDOMINAL: Soft, nondistended, nontender, positive bowel sounds in all quadrants. : Deferred. MUSCULOSKELETAL: Normal tone, full range of motion, no deformities, no peripheral edema, right SI joint tenderness to palpation, neurovascularly intact distally, ambulatory in the emergency department with a steady gait, negative straight leg raise. NEURO: Alert and oriented x3, CN II through XII intact, equal strength and sensation bilateral upper and lower extremities, no focal neurologic deficits. PSYCHIATRIC: Flat affect, poor eye contact, withdrawn Medical Decision Making Medical Decision Making MDM Narrative: Patient presents today with a chief complaint of chronic back pain. Differential diagnosis includes musculoskeletal pain, osseous abnormality such as fracture or tumor, infection, spinal cord pathology such as cauda equina syndrome, ligamentous or disc pathology, vascular abnormalities, among many others. I reviewed the list of red flag features such as trauma, weight loss, abnormal neurological findings such as weakness, bowel or bladder incontinence, saddle paresthesia, as well as history of cancer, IV drug abuse, fever, to list a few. Based on history and physical examination, further workup at this time is not indicated. He just recently had imaging performed at [facility] which was normal. He was in this emergency department about a week ago with a similar back pain. He has follow-up today with physical therapy and pain management and I see no indication based on my exam for further intervention emergently. Medicated with Valium and ketorolac. Discussed return precautions. Discharged to follow-up as planned. Differential Diagnosis Differential Diagnoses: The differential diagnosis associated with the presentation includes (As above) Prescription Management I considered prescription management with: Pain Medication Chronic Conditions Patient?s care impacted by: Diabetes and Hypertension Social Determinants Patient?s care significantly limited by Social Determinants of Health including: Inadequate housing and Unemployment Discharge Plan Discharge Clinical Impression: Chronic low back pain with right-sided sciatica Patient Disposition: Home, Self-Care Instructions: Chronic Pain (ED) Additional Instructions: Continue to follow-up with your pain management clinic as discussed as well as with her physical therapy appointment today. Do not miss any appointments and try to follow through with the plan of care. Eventually may get an MRI. If you develop any new or worsening symptoms including: Worsening back pain despite medication, fevers greater than 100?, numbness when he wipes her bottom after pooping, urinary retention or any new symptom that concerns you should return to the emergency department immediately. Prescriptions: No Action (DME) insulin syringe-needle U-100 [BD Insulin Syringe] 0.3 mL 29 gauge x 1/2 syringe See Rx Instructions .ROUTE .MEDSUPPLY Qty: 150 5RF Rx Instructions: 4 times a day (DME) pen needle, diabetic [BD Felisha 2nd Gen Pen Needle] 32 gauge x needle See Rx Instructions .ROUTE .MEDSUPPLY Qty: 50 4RF Rx Instructions: once a day (DME) 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 meter [FreeStyle Lite Meter] Kit See Rx Instructions .Route Qty: 1 0RF Rx Instructions: As directed-checks 4 X/day insulin lispro 100 unit/mL solution See Rx Instructions .ROUTE .COMPLEX Qty: 30 11RF Rx Instructions: UP TO 100 UNITS DAILY VIA INSULIN PUMP (TANDEM TSLIM x2) (DME) Tandem Mobi System Misc MISCELLANEOUS Rx Instructions: UP TO 100 UNITS INSULIN LISPRO DAILY VIA PUMP fluticasone propion-salmeterol [Advair Diskus] 250-50 mcg/dose Blister With Device 1 inh INHALATION BID PRN (Reason: Shortness Of Breath Or Wheezing) albuterol sulfate [Ventolin HFA] 90 mcg/actuation Hfa Aerosol Inhaler 2 puff INHALATION Q4H PRN (Reason: Respiratory Distress) meloxicam 7.5 mg tablet 7.5 mg PO DAILY Qty: 20 0RF omeprazole 40 mg Capsule,Delayed Release(Dr/Ec) 40 mg PO BID@0630,1630 Qty: 180 0RF clonidine HCl 0.1 mg tablet 0.1 mg PO DAILY PRN (Reason: Anxiety) cholecalciferol (vitamin D3) 25 mcg (1,000 unit) tablet 25 mcg PO DAILY Baqsimi 3 mg/actuation spray,non-aerosol 3 mg intranasal DAILY PRN (Reason: Hypoglycemia) cyanocobalamin (vitamin B-12) [Vitamin B-12] 1,000 mcg Tablet 1,000 mcg PO DAILY vitamin B complex Tablet 1 tab PO DAILY amlodipine 10 mg Tablet 10 mg PO DAILY Qty: 90 0RF Protocol: Hold for SBP< HOLD for SBP < : 90 chlordiazepoxide HCl 25 mg capsule 50 mg PO Q4H PRN (Reason: alcohol withdrawal) Qty: 12 0RF Rx Instructions: until symptoms controlled acetaminophen [Tylenol Extra Strength] 500 mg tablet 500 mg PO Q6H PRN (Reason: fever or pain) Qty: 14 0RF lidocaine [Lidoderm] 5 % adhesive patch,medicated 1 patch topical DAILY MDD remove after 12 hours PRN (Reason: pain) Qty: 30 0RF Rx Instructions: leave on most painful area for up to 12 hrs naproxen 500 mg tablet 500 mg PO BID PRN (Reason: pain) 10 Days Qty: 20 0RF baclofen 10 mg tablet 10 mg PO BID PRN (Reason: muscle spasm) Qty: 20 0RF Rx Instructions: Do not take this medication before driving or going to work, it may make you feel drowsy. clonazepam 0.5 mg tablet 0.5 mg PO BEDTIME PRN (Reason: Anxiety) Rx Instructions: AT BEDTIME (DME) FreeStyle Lite Strips Strip See Rx Instructions .ROUTE .MEDSUPPLY Qty: 300 11RF Rx Instructions: 4x daily (DME) lancets [FreeStyle Lancets] 28 gauge misc See Rx Instructions .Route Qty: 100 5RF Rx Instructions: As directed 4 X/day (DME) Ketone Urine Test Strip See Rx Instructions .ROUTE .MEDSUPPLY Qty: 25 1RF Rx Instructions: prn tid for nausea, vomiting, illness, glucose remaining over 250 Print Language: Argentine
[2025-04-17 03:06] VITALS: BP 137/80; PULSE 87; RESP 14; TEMP 36.9; O2SAT 97
--- NOTE | 2025-04-17 03:55 | PC.NURSE ---
Patient medicated per DEC, effect pending. Patient requested and given lynda seferino and chicken sandwich.
[2025-04-17 05:03] VITALS: BP 147/84; PULSE 77; RESP 16; TEMP 36.7; O2SAT 97
[2025-04-17 05:15] VITALS: BP 147/84; PULSE 77; RESP 16; TEMP 36.7; O2SAT 97
== END 2025-04-17 05:16 | disposition home or self-care (01) ==
PROVIDERS: Emergency Provider Emergency Medicine
DX: M54.41 Lumbago with sciatica, right side (principal); E11.9 Type 2 diabetes mellitus without complications; Z79.899 Other long term (current) drug therapy; Z79.4 Long term (current) use of insulin; F17.210 Nicotine dependence, cigarettes, uncomplicated
CPT/HCPCS: 96372; 99284; J1885

== ENCOUNTER 2025-05-09 19:21 | Outpatient (REF) | payer MEDICAID, SELFPAY ==
--- OUTSIDE RECORDS SUMMARY | 2024-02-04 09:30 | XMS_ITS ---
Author Organization [facility] Address [address] [place] [id number] Care Team Providers Care Vehicle Window Tinter Name Role Phone JESSE HASSAN PA-C Primary Care Provider UnaHank Melchor [phone] Problems Problem Type SNOMED Code ICD Code Onset Dates Problem Status W/U Status Risk Notes Problem Gastritis, chronic (K29.50) Active confirmed Encounters Encounter Location Date Provider Diagnosis [facility] [place] Out[place] [address] [place] [phone] 02/04/2024 Hank Stanford Plan Of Treatment No Information Progress Notes * GRAHAM MCINTOSH TDOB: [birth year] (49 yo M)Acc No.[id number]:02/04/2024 EGD/MAC Patient: Gypsy GRAHAM LAM Provider: Gypsy Stanford MD :1975 A ge:48 Y S ex:Male Date:02/04/2024 Address:[address] [place], [place] [phone] Pcp:JESSE HASSAN PA-C Subjective: * Chief Complaints: * * Medical History: Objective: * Vitals: Assessment: Plan: * Treatment: * * The named appointment provid er may or may not be the originator of this progress note, and it is not deemed complete until electronically signed by the appointment provider. Sign off status: Pending * Provider: Gypsy Stanford MD Date: 02/04/2024 Generated for Rahel lieberman/Chema/eTransmitting on: 05/09/2025 07:29 PM EDT
--- NOTE | ~2025-05-09 | MR_ITS ---
EXAMINATION: MR LUMBAR SPINE WITHOUT CONTRAST CLINICAL INFORMATION: Intervertebral disc degeneration, lumbar region. COMPARISON: None available. TECHNIQUE: MRI of the lumbar spine was obtained using routine sequences without contrast. FINDINGS: Last rib-bearing vertebra labeled T12. No bone marrow STIR signal abnormality. Grade 1 anterolisthesis L5-S1 secondary to spondylolysis pars interarticulares. Schmorl node inferior endplate of T11. Decreased intervertebral disc signal throughout the axial skeleton. Conus medullaris ends at inferior endplate of T12 with normal signal. T12-L1: No disc herniation. No neuroforamina stenosis. L1-2: No disc herniation. No neuroforamina stenosis. L2-3: Broad-based disc bulging. Facet joint hypertrophy. No central spinal canal stenosis or neuroforamina stenosis. L3-4: Broad-based disc bulging. Facet joint hypertrophy. Reduced AP diameter of the thecal sac and neuroforamina. No compression upon neural elements. L4-5: Broad-based disc bulging. Facet joint and ligamentum flavum hypertrophy. Reduced AP diameter of the thecal sac and neuroforamina without compression upon neural elements. L5-S1: Grade 1 anterolisthesis. Facet joint hypertrophy. Spondylolysis pars interarticularis bilaterally. Bilateral neuroforamina stenosis encroaching the L5 and S1 roots. No gross central spinal canal stenosis. No prevertebral compartment hematoma, mass or fluid collection. Asymmetry right psoas muscle with of mild volume loss. Hyperintense T2 cystic lesion at the corticomedullary junction left kidney. MR/MR lumbar spine wo con IMPRESSION: Grade 1 anterolisthesis secondary to bilateral spondylolysis pars interarticulares resulting in bilateral neuroforamina stenosis encroaching the exiting nerve roots. Mild multilevel lumbar spondylosis, L3-4 and L4-5. Electronically signed by: Jeffry Royal MD 05/10/2025 07:35 AM EDT
--- NOTE | ~2025-05-09 | MR_ITS ---
EXAMINATION: MR CERVICAL SPINE WITHOUT CONTRAST CLINICAL INFORMATION: Cervicalgia. COMPARISON: May 19, 2020. TECHNIQUE: MRI of the cervical spine was obtained using routine sequences without contrast. FINDINGS: Patient's motion artifact. Craniocervical junction is intact. Bone marrow STIR signal at the endplates of C4 and C5. Marginal osteophyte formation decreased hearing to disc height and signal at C4-5. Grade 1 retrolisthesis C4-5. Hypertrophy of ligamentum flavum resulting in buckling deformity of the dorsal aspect of the thecal sac at C4-5. Reverse curvature apex at C4-5. Normal position of the cerebellar tonsils. C2-3: No disc herniation. No neuroforamina stenosis. C3-4: Right-sided broad-based disc osteophyte complex formation. No compression upon neural elements. No neuroforamina stenosis. C4-5: Grade 1 retrolisthesis resulting in broad-based disc osteophyte complex formation and the right subarticular broad-based disc herniation causing ventral spinal cord deformity with the CSF effacement of the thecal sac. Bilateral neuroforamina stenosis on a degenerative basis. Limited evaluation due to motion demonstrated no overt cord signal abnormality. C5-6: Right-sided disc osteophyte compresses formation resulting in ventral deformity of the thecal sac. No cord compression. Bilateral neuroforamina narrowing on a degenerative basis, right greater than the left side. C6-7: Broad-based disc osteophyte complex formation without compression upon neural elements. No neuroforamina stenosis. C7-T1: No disc herniation. No neuroforamina stenosis. No prevertebral compartment hematoma, mass or fluid collection. Flow-void signal within the main vessels is normal. Codominant vertebral arteries. MR/MR cervical spine wo con IMPRESSION: Cervical spondylosis resulting in grade 1 retrolisthesis C4-5, cord compression without overt cord edema and or myelopathy and bilateral neuroforamina stenosis. Cervical instability at C4-5 cannot be excluded. Acute to subacute inflammatory degenerative process at C4-5. Electronically signed by: Jeffry Royal MD 05/10/2025 07:43 AM EDT
--- OUTSIDE RECORDS SUMMARY | 2025-05-09 19:30 | XMS_ITS | Encounter Summary ---
Author Organization [facility], Address [address] [place] [address] Phone Care Team Providers Care Performance Makeup Artist Name Role Phone Niru Crawford Primary Care Provider [phone] Encounter Details Date Type Department Care Team (Late st Contact Info) Description 09/30/2023 Documentation Only [facility] [address] [place] [id number] Linda Carrasquillo NP Social History Tobacco Use [...] Visit [facility] [address] [place] [address] Juan Yee MD [address] [place] [address] [place] [address] documented as of this encounter Visit Diagnoses Not on filedocumented in this encounter Care Teams Performance Makeup Artist Relationship Specialty Start Date End Date Yvette [address] [place] [address] PCP - General 11/08/24 documented as of this encounter
== END 2025-05-09 19:22 | disposition home or self-care (01) ==
LOC: HO.MRI 19:21
PROVIDERS: Visit Provider Internal Medicine
DX: M51.362 Other intervertebral disc degeneration, lumbar region with discogenic back pain and lower extremity pain (principal); M54.2 Cervicalgia; G89.29 Other chronic pain
CPT/HCPCS: 72141; 72148

== ENCOUNTER → 2025-05-09 19:26 | Outpatient (BNV) | payer MEDICAID, SELFPAY | PROVIDERS: Visit Provider Radiology Diagnostic Radiology | DX: M54.2 Cervicalgia (principal); M47.816 Spondylosis without myelopathy or radiculopathy, lumbar region | CPT/HCPCS: 72141; 72148 ==

== ENCOUNTER 2025-05-10 10:06 | Outpatient (AMB) | payer MEDICAID, SELFPAY ==
--- OUTSIDE RECORDS SUMMARY | 2024-02-04 09:30 | XMS_ITS ---
Author Organization [facility] Address [address] [place] [phone] Care Team Providers Care Upholsterer Apprentice Name Role Phone JESSE HASSAN PA-C Primary Care Provider UnaHank Melchor [phone] Problems Problem Type SNOMED Code ICD Code Onset Dates Problem Status W/U Status Risk Notes Problem Gastritis, chronic (K29.50) Active confirmed Encounters Encounter Location Date Provider Diagnosis [facility] [place] [address] [place] [phone] 02/04/2024 Hank Stanford Plan Of Treatment No Information Progress Notes * GRAHAM MCINTOSH TDOB: 5 (49 yo M)Acc No.[id number]:02/04/2024 EGD/MAC Patient: Gypsy GRAHAM LAM Provider: Gypsy Stanford MD :1975 A ge:48 Y S ex:Male Date:02/04/2024 Address:[address] [place], [place] [phone] Pcp:JESSE HASSAN PA-C Subjective: * Chief Complaints: [...] 0 02/04/2024 Generated for Rahel lieberman/Chema/eTransmitting on: 05/10/2025 10:55 AM EDT
[2025-05-10 10:09] VITALS: BP 140/82; PULSE 102; O2SAT 99; BMI 20.9
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
[2025-05-10 10:21] LABS: Glucose, Whole Blood 415 mg/dL (60-115)
--- OUTSIDE RECORDS SUMMARY | 2025-05-10 10:55 | XMS_ITS | Encounter Summary ---
Author Organization [facility] Address [address] [facility] [address] [place] [id number] Phone Care Team Providers Care Application Support Intern Name Role Phone Niru Crawford PA-C Primary Care Provider + [phone] Reason for Visit * Reason Onset Date Comments Results 05/05/2025 Encounter Details Date Type Department Care Team (Late st Contact Info) Description 05/05/2025 Telephone [facility] [address] [place], [place] [id number] Niru Crawford PA-C [address] [place], [place] [id number] [email or web address] Results Social History Tobacco Use Types Packs/Day Years Used Date Smoking Tobacco: Every Day Cigarettes 0.3 31.6 Started: 10/12/1987; Last attempted to quit: 10/12/2017 Smokeless Tobacco: Never Comments:2 cigarettes daily, 1 pack per week Alcohol Use Standard Drinks/Week Comments Yes 0 (1 standard drink = 0.6 oz pur e alcohol) Few times a month. Child or Family Care Answer Date Record ed Do you have problems with on e of the following making it difficult for you to work, study, or receive health care? No 08/27/2022 Education Answer Date Recorded Are you interested in more education? Not on khadar e 09/06/2024 Are you concerned about learning? Not on file 09/06/2024 No 09/06/2024 No 09/06/2024 Food Answer Date Recorded Within the past 6 months we worried whether our food would run out before we got money to buy more. Never True 08/27/2022 Within the past 6 months the food we bought just didn't last and we didn't have enough money to get more. Never True Residential Stability Answer Date Recor ded What is your housing situation today? I have madhu prado 08/27/2022 How many times have you move d in the past 12 months? Zero (I did not move) 08/27/2022 Paying for Meds Answer Date Recorded Do you have trouble paying for medicines? No 08/27/2022 Paying Utility Bills Answer Date Record ed Do you have trouble paying your heating or elect ricity bill? No 08/27/2022 Transportation Answer Date Recorded Has the lack of transportati on kept you from medical appointments or from getting medications? No 08/27/2022 Unemployment Answer Date Recorded Are you currently unemployed or working on a part-time or temporary basis, and looking for work? No 08/27/2022 Digital Access Answer Date Recorded No 03/06/2023 No 03/06/2023 Reliable internet access at home? Not on file 03/06/2023 Device with a working camera? Not on file Sex and Gender Information Value Date Recorded Sex Assigned at Not on file Legal Sex Male 9:30 PM EDT Gender Identity Not on file Sexual Orientation Not on file documented as of this encounter Progress Notes * Niru Crawford PA-C - 05/09/2025 11:57 AM EDT Noted, thanks! * Jennifer Yi RN - 05/09/2025 11:49 AM EDT Spoke to Edu and advised. He states understanding. He has already scheduled the [place] (05/17). Goes to [facility] today, for MRI of his back for pain management. He will make sure they send the resultsto us. Fax number given. * Amarilys Diamond RN - 05/09/2025 8:54 AM EDT LVM to call the office * Amarilys Diamond RN - 05/05/2025 11:57 AM EDT LVM to call the office * Amarilys Diamond RN - 05/05/2025 11:56 AM EDT Images from the original note were not included. Niru Crawford PA-C [facility] Rn CT abdomen pelvis in the setting of left pain with suspected hernia. No hernia noticed on imaging. However, multiple incidental findings are noted. There was a hypodense lesion along the left kidney which likely represented a cyst but ultrasound was recommended to further assess so an ultrasound has been ordered. There was a diminutive left hepatic lobe and a relatively enlarged right hepatic lobe without any focal lesions. He does have a known history of cirrhosis [facility] Lastly there is spondylosis without spondylolisthesis at L5. This essentially means that there is degenerative changes of his lumbar spine without any slipping of the discs which means the spine remains properly aligned documented in this encounter Plan of Treatment Upcoming Encounters Date Type Department Care Team (Late st Contact Info) Description 05/17/2025 9:15 AM EDT Appointment [address] [place] [address] Niru Crawford PA-C [address] [facility] [address] [email or web address] 06/29/2025 8:40 AM EDT Office Visit [facility] Internal [facility] [address] [place] [address] Niru Crawford PA-C [address] [place] [address] [email or web address] documented as of this encounter Visit Diagnoses Not on filedocumented in this encounter Additional Health Concerns Assessment Noted Time PHQ-9 Depression Total Score: 6 02/09/20 18 11:02 AM EDT PHQ-2 Depression Total Score: 0 01/07/20 25 9:40 AM EDT documented as of this encounter Care Teams Application Support Intern Relationship Specialty Start Date End Date Niru Crawford PA-C [address] [place] [address] [email or web address] PCP - General Physician Machine Engineer 10/18/24 documented as of this encounter Additional Source Comments The information contained in this document represents components of the legal health record. It is not the complete legal health record.[facility]
--- OUTSIDE RECORDS SUMMARY | 2025-05-10 10:55 | XMS_ITS | Encounter Summary ---
Author Organization [facility], Address [address] [place] [address] Phone Care Team Providers Care Microfiche Camera Operator Name Role Phone Niru Crawford Primary Care Provider [phone] Encounter Details Date Type Department Care Team (Late st Contact Info) Description 09/30/2023 Documentation Only [facility] [address] [place] [phone] Linda Carrasquillo NP Social History Tobacco Use [...] Visit [facility] [address] [place] [address] Juan Yee MD [address] [place] [address] [place] [address] documented as of this encounter Visit Diagnoses Not on filedocumented in this encounter Care Teams Microfiche Camera Operator Relationship Specialty Start Date End Date Yvette Niru [address] [place] [address] PCP - General 11/08/24 documented as of this encounter
[2025-05-10 11:31] LABS: Glucose, Whole Blood 373 mg/dL (60-115)
== END 2025-05-10 11:56 | disposition home or self-care (01) ==
LOC: HO.ENCR 10:07
PROVIDERS: Visit Provider Internal Medicine Endocrinology, Diabetes & Metabolism
DX: Z13.9 Encounter for screening, unspecified (principal); E10.65 Type 1 diabetes mellitus with hyperglycemia
CPT/HCPCS: 99214

== ENCOUNTER → 2025-05-10 10:06 | Outpatient (BNVA) | payer MEDICAID, SELFPAY | PROVIDERS: Visit Provider Internal Medicine Endocrinology, Diabetes & Metabolism | DX: E10.65 Type 1 diabetes mellitus with hyperglycemia (principal) | CPT/HCPCS: 81002; 82947; 83036; 99212 ==

== ENCOUNTER 2025-05-16 09:43 | Inpatient (IN) | payer MEDICAID, SELFPAY ==
--- OUTSIDE RECORDS SUMMARY | 2024-02-04 09:30 | XMS_ITS ---
Author Organization [facility] Address [address] [place] [phone] Care Team Providers Care Internal Medicine Veterinary Technician Name Role Phone JESSE HASSAN PA-C Primary Care Provider UnaHank Melchor [phone] Problems Problem Type SNOMED Code ICD Code Onset Dates Problem Status W/U Status Risk Notes Problem Gastritis, chronic (K29.50) Active confirmed Encounters Encounter Location Date Provider Diagnosis [facility] [place] [address] [place] [phone] 02/04/2024 Hank Stanford Plan Of Treatment No Information Progress Notes * GRAHAM MCINTOSH TDOB: [birth year] (49 yo M)Acc No.[id number]:02/04/2024 EGD/MAC Patient: Gypsy GRAHAM LAM Provider: Gypsy Stanford MD :1975 A ge:48 Y S ex:Male Date:02/04/2024 Address:[address] [place], [place] [phone] Pcp:JESSE HASSAN PA-C Subjective: * Chief Complaints: [...] 0 02/04/2024 Generated for Rahel lieberman/Chema/eTransmitting on: 05/16/2025 11:51 AM EDT
[2025-05-16] VITALS (9 sets, daily range): BP systolic 113–173; BP diastolic 67–87; PULSE 77–138; RESP 14–22; TEMP 36.7–37.3; O2SAT 97–100; BMI 20.9
--- NOTE | ~2025-05-16 | CT_ITS ---
EXAMINATION: CT ABDOMEN AND PELVIS WITH CONTRAST CLINICAL INFORMATION: Abdominal pain DLP: 387 mGY*cm COMPARISON: March 08, 2025 TECHNIQUE: Multidetector volumetric images were obtained from the superior aspect of the liver through the pubic symphysis following administration 85 mL of Omnipaque 350 intravenous contrast. Sagittal and coronal reformatted images were obtained on the technologist's workstation. Oral contrast: No This CT examination was performed using dose optimization techniques as appropriate, variously including the following: *Automated exposure control *Adjustment of mA and/or kV according to patient size (this includes techniques or standardized protocols for targeted exams where dose is matched to indication/reason for exam; i.e. extremities or head) *Use of iterative reconstruction technique FINDINGS: LUNG BASES: The visualized lung bases are unremarkable. LIVER, GALLBLADDER, AND BILIARY TREE: The liver is normal in size, shape, and attenuation. No focal hepatic lesion or biliary ductal dilatation is present. The gallbladder is unremarkable with no evidence of radiopaque gallstones, gallbladder wall thickening, or obvious pericholecystic inflammatory changes. PANCREAS: Unremarkable. SPLEEN: Unremarkable. ADRENAL GLANDS: Unremarkable. KIDNEYS AND URETERS: Again noted is a 12 x 17 mm simple renal cyst in the mid pelvic region of the left kidney. There is no hydronephrosis or nephrolithiasis. BLADDER: Unremarkable. GASTROINTESTINAL TRACT: The small and large bowel are unremarkable. The appendix is unremarkable. ABDOMINAL WALL: No significant hernia is appreciated. LYMPH NODES: There are shotty nodes in the florecita hepatis not exceeding 1 cm short axis diameter.. VASCULAR: Mild to moderate multifocal vascular calcifications are present. PELVIC VISCERA: Unremarkable. OSSEOUS STRUCTURES: Chronic pars interarticular defect is present at L5 with subtle anterolisthesis at L5-S1. There are osteophytes involving the acetabulum and femoral head margins. There is mild hip joint space narrowing. CT/CT abdomen pelvis w IV con IMPRESSION: No abnormality is evident to explain the patient's abdominal pain. Chronic pars interarticularis defect at L5. Mild osteoarthritis involving both hips. Fleischner guidelines were followed. Electronically signed by: Александр Betts MD 05/16/2025 02:23 PM EDT
--- NOTE | 2025-05-16 10:01 | ED.NAVMDI ---
HPI - Nausea/Vomiting/Diarrhea General Chief complaint: Abdominal Pain Stated complaint: Vomiting 2 days, abd pain Time Seen by Provider: 05/16/25 11:04 Source: patient and RN notes reviewed Mode of arrival: ambulatory Limitations: no limitations History of Present Illness ED Provider: Caro Aquino PA-C HPI Narrative: This is a 49-year-old male, with a past medical history of hypertension, type 1 diabetes, chronic back pain who presents emergency department with concerns of abdominal pain, nausea, vomiting and diarrhea x 2 days. Patient reports that he gets bouts of back spasms that causes him to go into episodes in which he can not control his vomiting. Patient has been seen in the past for similar symptoms. Patient states that the back spasms are throbbing in nature, and states that he vomited at least 50 times overnight. Denies any bloody or black vomit. He is followed by [facility] and states that they have not been able to discern any issues. He does report subjective fevers and chills and body aches. He denies any chest pain, shortness for breath, bloody or black stool. No urinary symptoms. Patient does report that he does smoke marijuana. No abdominal surgeries in the past. No other complaints or concerns at this time. MD elicited complaint: nausea, vomiting, diarrhea and abdominal pain Pertinent past history: cyclical vomiting Onset (ago): day(s) Description of vomiting: watery Associated nausea: Yes Associated abdominal pain: Yes Location of pain: diffuse Pain consistency: constant Quality: cramping Exacerbating factors: none Relieving factors: none Associated symptoms: denies other symptoms Related Data Home Medications ?Medication ?Instructions ?Recorded ?Confirmed clonazepam 0.5 mg tablet 0.5 mg PO BEDTIME PRN Anxiety 07/16/21 05/16/25 subcutaneous insulin pump (Tandem 12/29/24 05/10/25 Mobi System) cholecalciferol (vitamin D3) 25 25 mcg PO DAILY 01/16/25 05/16/25 mcg (1,000 unit) tablet clonidine HCl 0.1 mg tablet 0.1 mg PO DAILY 01/16/25 05/16/25 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,leather coater,cont 05/10/25 05/10/25 (Dexcom G6 Animal Sticker) folic acid 1 mg tablet 1 mg PO DAILY 05/16/25 05/16/25 lidocaine 5 % topical patch 1 patch topical DAILY 05/16/25 05/16/25 lisinopril 5 mg tablet 5 mg PO DAILY 05/16/25 05/16/25 omeprazole 40 mg capsule,delayed 40 mg PO DAILY 05/16/25 05/16/25 release thiamine HCl (vitamin B1) 100 mg 100 mg PO DAILY 05/16/25 05/16/25 tablet Previous Rx's ?Medication ?Instructions ?Recorded insulin syringe-needle U-100 0.3 #150 ea 08/29/20 mL 29 gauge x 1/2 (BD Insulin Syringe) pen needle, diabetic 32 gauge x #50 ea 08/29/20/32 (BD Felisha 2nd Gen Pen Needle) 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 meter (FreeStyle #1 ea 10/22/22 Lite Meter kit) blood sugar diagnostic (FreeStyle #300 ea 02/19/23 Lite Strips) lancets 28 gauge (FreeStyle #100 ea 02/19/23 Lancets) acetone (urine) test (Ketone Urine #25 ea 11/02/24 Test strips) amlodipine 10 mg tablet 10 mg PO DAILY #90 tabs 01/19/25 insulin lispro 100 unit/mL See Rx Instructions .Route 02/22/25 subcutaneous solution .COMPLEX #30 mL lidocaine 5 % topical patch 1 patch topical DAILY PRN pain #30 03/04/25 (Lidoderm) ea meloxicam 7.5 mg tablet 7.5 mg PO DAILY #20 tabs 03/14/25 baclofen 10 mg tablet 10 mg PO BID PRN muscle spasm #20 04/06/25 tabs Allergies Allergy/AdvReac Type Severity Reaction Status Date / Time hydroxyzine (From VISTARIL) Allergy Intermediate RASH, Verified 05/16/25 09:54 ANXIOUS quetiapine (Seroquel) AdvReac Intermediate Unknown Verified 05/16/25 09:54 Review of Systems Review of Systems: Yes all other systems are reviewed and are negative Constitutional: Constitutional: Reports as per HPI Gastrointestinal: Gastrointestinal: Reports nausea PMFSH Past Medical History Medical History Constipation History of methadone use Intravenous drug user Peripheral vascular disease Elevated liver function tests Polysubstance abuse Osteoarthritis Type 1 diabetes History of drug abuse Depression Vitamin D deficiency 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 Mother No problems noted. Social History Social History Household Members: Family Household Members Other:: mother Housing: House Do you presently have visiting nurse or other home services: No Alcohol intake: former Patient Tobacco Use Status: Current everyday Tobacco user Tobacco use type: Cigarette Cigarettes Per Day: 3 Years Smoked: 33 Smoked in Last 30 Days: Yes e-Cigarette/Vaping Use: Currently Using Second Hand Smoke Exposure: No Use of substances other than those prescribed or required for medical reasons: Yes Substance Use Type: Marijuana Substance Use Frequency Other:: 2 Last Used Substance: Days (ago) Advance Directives: Yes Advance Directives on File: Yes Advance Directives Date on File: 08/29/20 Nutrition Risks: No Nutritional Risk service: No Current occupational status: unemployed Physical Exam Vital Signs: Vital Signs: Last Vital Signs Temp 98.0 F 05/17/25 10:29 Pulse 65 05/17/25 10:29 Resp 16 05/17/25 10:29 BP 167/108 H 05/17/25 10:29 Pulse Ox 100 05/17/25 10:29 O2 Del Method Room Air 05/17/25 10:29 BMI result Body Mass Index 20.9 Const: General: cooperative, comfortable and no acute distress Orientation/consciousness: patient oriented x3 Limitations: no limitations HEENT: Head: Yes normal to inspection, Yes normocephalic and Yes atraumatic Ears: hearing grossly normal bilaterally General nose exam: Normal external nose present Face and sinus: Yes normal facial exam Mouth: Normal oral and palatal mucosa present, oropharynx normal and moist mucous membranes Throat: Yes posterior oropharynx normal Eyes: General: appearance normal, both eyes and all related structures Eyelids: Yes eyelids normal Conjunctivae: conjunctivae normal Sclerae: sclerae normal Pupils: Equal, round and reactive pupils present EOM: EOMs intact bilaterally Neck: Neck: Yes normal visual inspection, Yes full ROM and Yes no lymphadenopathy Lymphatic: no lymphadenopathy noted Chest: Chest palpation & inspection: normal inspection of the chest Resp: Effort & Inspection: normal respiratory effort and able to speak in complete sentences Auscultation: clear to auscultation bilaterally, no crackles, no rales, no rhonchi and no wheezes Cardio: Rate: regular rate Rhythm: regular rhythm Heart sounds: S1 normal heart sound present and S2 normal heart sound present GI: Other: Abdomen is soft with TTP throughout the abdomen, no rebound or guarding. Normal active bowel sounds Inspection: Yes normal to inspection Skin: General skin exam: no rashes or lesions noted Trauma: no lacerations or abrasions Wounds: no wounds Neuro: General: patient oriented x3 and moves all extremities Cranial nerves: Yes Equal, round and reactive pupils present Extrem: General: Yes normal to inspection Right upper extremity: normal to inspection Left upper extremity: normal to inspection Right lower extremity: normal to inspection Left lower extremity: normal to inspection Medications Administered Generic Name Dose Route Start Last Admin Trade Name Freq PRN Reason Stop Dose Admin Amlodipine Besylate 10 mg 05/17/25 10:45 05/17/25 11:21 Amlodipine Besylate 10 Mg Tablet PO 10 mg DAILY [facility] Administration Protocol Clonidine HCl 0.1 mg 05/17/25 10:45 05/17/25 11:21 Clonidine Hcl 0.1 Mg Tablet PO 0.1 mg DAILY [facility] Administration Protocol Enoxaparin Sodium 40 mg 05/16/25 20:00 05/16/25 20:45 Enoxaparin Sodium 40 Mg/0.4 Ml Syringe SUBCUT 40 mg Q24H [facility] Administration Insulin Human Lispro 0 unit 05/16/25 21:00 05/17/25 11:22 Insulin Lispro 100 Unit/Ml 3 Ml Vial SUBCUT Not Given QIDACHS [facility] Protocol Lisinopril 5 mg 05/17/25 10:45 05/17/25 11:21 Lisinopril 5 Mg Tablet PO 5 mg DAILY A[facility] Administration Protocol Morphine Sulfate 4 mg 05/16/25 21:00 05/17/25 10:29 Morphine Sulfate 4 Mg/Ml Cartridge IVPUSH 4 mg Q4H PRN Administration Pain, Severe (Pain Scale 7-10) Protocol Pantoprazole Sodium 40 mg 05/16/25 20:00 05/17/25 06:08 Pantoprazole Sodium 40 Mg/10 Ml Vial IVPUSH 40 mg DAILY@0630 [facility] Administration Sodium Chloride 3 ml 05/17/25 00:00 05/17/25 10:29 0.9 % Sodium Chloride Flush 3 Ml Syringe IVFLUSH 3 ml QSHIFT [facility]LEIGH Administration Discontinued Medications Generic Name Dose Route Start Last Admin Trade Name Freq PRN Reason Stop Dose Admin Diphenhydramine HCl 12.5 mg 05/16/25 11:21 05/16/25 12:43 Diphenhydramine Hcl 50 Mg/Ml Vial IVPUSH 05/16/25 11:22 12.5 mg ONCE ONE Administration Droperidol 1.25 mg 05/16/25 19:50 05/16/25 20:43 Droperidol 5 Mg/2 Ml Vial IVPUSH 05/16/25 19:51 1.25 mg ONCE ONE Administration Hydromorphone HCl 1 mg 05/16/25 14:00 05/16/25 14:06 Hydromorphone Hcl 1 Mg/Ml Syringe IVPUSH 05/16/25 14:01 1 mg ONCE ONE Administration Protocol Hydromorphone HCl 1 mg 05/16/25 16:51 05/16/25 17:06 Hydromorphone Hcl 1 Mg/Ml Syringe IVPUSH 05/16/25 16:52 1 mg ONCE ONE Administration Protocol Sodium Chloride 1,000 mls @ 1,000 mls/hr 05/16/25 11:09 05/16/25 13:42 Sodium Chloride 0.45 % IVCONT 05/16/25 12:08 Infused .Q1H ONE Infusion Sodium Chloride 1,000 mls @ 999 mls/hr 05/16/25 11:10 05/16/25 13:42 Ns IV 05/16/25 12:10 Infused .Q1H1M ONE Infusion Potassium Chloride/Dextrose/Sod Cl 40 meq in 1,000 mls @ 250 mls/hr 05/16/25 16:15 05/17/25 00:38 Kcl 40 Meq In 5% Dex/0.45% Sod IVCONT Not Given .Q4H A[facility] Sodium Chloride 1,000 mls @ 125 mls/hr 05/16/25 19:15 05/17/25 06:38 Sodium Chloride 0.45 % IVCONT 05/17/25 03:14 Infused .Q8H [facility] Infusion Potassium Chloride 10 meq in 100 mls @ 100 mls/hr 05/16/25 20:45 05/17/25 01:25 Potassium Chloride/H20 IV 05/17/25 00:44 Infused Q1H [facility] Infusion Iohexol 100 ml 05/16/25 14:09 05/16/25 14:10 Iohexol 350 Mg/Ml 100 Ml Infus..Btl IV 05/16/25 14:10 85 ml ONCE ONE Administration Metoclopramide HCl 10 mg 05/16/25 11:21 05/16/25 12:46 Metoclopramide Hcl 10 Mg/2 Ml Vial IVPUSH 05/16/25 11:22 10 mg ONCE ONE Administration Morphine Sulfate 4 mg 05/16/25 11:21 05/16/25 13:00 Morphine Sulfate 4 Mg/Ml Cartridge IVPUSH 05/16/25 11:22 4 mg ONCE ONE Administration Protocol Ondansetron HCl 4 mg 05/16/25 09:58 05/16/25 10:03 Ondansetron Odt 4 Mg Tab.Rapdis TRANSLINGU 05/16/25 09:59 4 mg ONCE ONE Administration Medical Decision Making Medical Decision Making MDM Narrative: This is a 49-year-old male, who presents emergency department with concerns of abdominal pain, nausea, vomiting and diarrhea. On arrival, patient actively vomiting in triage, pulse 138. Patient has been monitoring his sugars at home, states that they have been within the normal range. Abdomen is soft however diffusely tender throughout, normoactive bowel sounds present in all 4 quadrants. Differential diagnoses include gastroenteritis, cyclical vomiting syndrome, biliary colic, diverticulitis, diverticulosis, gastritis. Will obtain labs, EKG, viral swabs. 11:09 - bicarb returns, patient with elevated bicarb at 42. He is hypernatremic at 152 chloride 92, carbon dioxide 42, anion gap of 22. Creatinine of 1.2, appears to be at at around his baseline. Random glucose 130, slightly elevated bilirubin at 1.3. AST ALT 164/106, and alk phos elevated at 224. Lipase 5. Beta hydroxybutyrate at 0.62. CBC revealing slight leukocytosis at 13.3, likely reactive secondary to intractable vomiting. I discussed this case with my attending physician, Dr. Mariscal who reviewed the case. This is not a respiratory alkalosis. Patient has a hypochloremic metabolic alkalosis secondary to excessive vomiting. Given patient is significantly dehydrated with an elavated sodium, patient needs to be volume depleted using normal saline, and water repleted with 0.45% saline. We will continue to monitor. We will also treat with IV antiemetics and IV pain medication. 1445 - patient re-evaluated, feeling better after receiving Dilaudid. Will repeat comp to see where bicarb is. We will continue to closely monitor. 175 - CMP returns, sodium has decreased to 147, potassium 3.2. Chloride 98. CO2 has decreased to 39. He is headed in the right direction in regards to his labs. Reviewed case with my attending physician, Dr. Mariscal who recommends D5 0.45% NS with 40 mEq KCL at 250 mL per hour to continue to replenish water and potassium in this patient. Patient's nausea has resolved however he is starting to feel abdominal pain and discomfort. Will medicate with IV Dilaudid. Given that patient's overall clinical symptoms have improved however continues to have some metabolic derangements secondary to volume and water depletion secondary to excessive vomiting likely due to cyclical vomiting syndrome most likely Cannabinoid hyperemesis syndrome (CHS), patient should be admitted for further monitoring and symptomatic relief. We will discuss case with hospitalist. Differential Diagnosis Differential Diagnoses: The differential diagnosis associated with the presentation includes See above Admission/Observation Consideration of admission/observation: Escalation of care including admission/observation considered Consult Healthcare Provider Management of the patient was discussed with: Hospitalist Lab Data [facility] Lab Attestation statement: I reviewed the patient's lab results. See MDM and course 05/17/25 06:28 05/17/25 06:28 Labs: Lab Results 05/16/25 05/16/25 05/16/25 Range/Units 10:19 15:02 15:37 WBC 13.3 H (4.8-10.8) X10*3/uL RBC 4.64 D (4.60-5.80) X10*6/uL Hgb 16.8 D (14.0-18.0) g/dl Hct 46.6 D (42.0-52.0) % MCV 100.4 H (80.0-98.0) fL MCH 36.2 H (27.0-33.0) pg MCHC 36.1 H (31.0-36.0) g/dl RDW 12.9 (11.0-16.0) % Plt Count 197 (160-400) X10*3/uL MPV 10.3 (9.4-12.4) fL Immature Gran % (Auto) 0.4 (0.0-0.4) % Neut % (Auto) 80.9 H (45-73) % Lymph % (Auto) 10.1 L (20-40) % [place] % (Auto) 8.4 (2-11) % Eos % (Auto) 0.0 (0-4) % Baso % (Auto) 0.2 (0-2) % Lymph # (Auto) 1.3 (1.2-4.9) X10*3/uL [place] # (Auto) 1.1 (0.1-1.2) X10*3/uL Eos # (Auto) 0.0 (0.0-0.4) X10*3/uL Baso # (Auto) 0.0 (0.0-0.2) X10*3/uL Abs Immat Gran (auto) 0.05 H (0.00-0.03) X10*3/uL Absolute Neuts (auto) 10.8 H (2.0-8.3) x10*3/uL Absolute Nucleated RBC 0.000 (0.0-0.012) X10*3/uL Nucleated RBC % (auto) 0.0 (0.0-0.2) /100WBC Sodium 152 H 147 H (135-145) mmol/L Potassium 3.7 3.2 L (3.3-5.1) mmol/L Chloride 92 L 98 (96-108) mmol/L Carbon Dioxide 42 H* D 39 H (22-29) mmol/L Anion Gap 22 H 13 (12-20) BUN 12 13 (9-16) mg/dL Creatinine 1.24 1.19 (0.5-1.4) mg/dL Estim Creat Clear Calc 68.5 71.4 Estimated GFR > 60 > 60 POC Glucose 70 (60-115) mg/dL Random Glucose 130 H 82 (60-115) mg/dL Calcium 9.8 8.1 L D (8.4-10.2) mg/dL Magnesium 1.6 (1.6-2.6) mg/dL Total Bilirubin 1.3 H 1.1 H (0.0-1.0) mg/dL Direct Bilirubin 0.4 (0.0-0.5) mg/dL AST 164 H 118 H (5-37) U/L ALT 106 H 82 H (0-40) U/L Alkaline Phosphatase 224 H 177 H (39-117) U/L Total Creatine Kinase 94 (38-174) U/L Troponin I High Sens < 2.7 (<3.5-35.0) ng/L Total Protein 7.8 6.3 L (6.5-8.0) g/dL Albumin 4.7 4.0 (3.5-5.0) g/dL Lipase 5 L (8-78) U/L Beta-Hydroxybutyrate 0.62 H (0.02-0.27) mmol/L Influenza Type A (PCR) NEGATIVE (Negative) Influenza Type B (PCR) NEGATIVE (Negative) RSV RNA Qual (PCR) NEGATIVE (Negative) SARS-CoV-2 RNA (RT-PCR) NEGATIVE (Negative) Independent Interpretation I performed an independent interpretation of an: EKG Interpretation: Sinus tachycardia at a ventricular rate of 111 beats per minute, NH interval 174, QT QTC 350/476, no STEMI. Radiology Impression Discussion of test interpretation with radiology: I have reviewed the radiologist's reading. Radiologist Impression: FINDINGS: LUNG BASES: The visualized lung bases are unremarkable. LIVER, GALLBLADDER, AND BILIARY TREE: The liver is normal in size, shape, and attenuation. No focal hepatic lesion or biliary ductal dilatation is present. The gallbladder is unremarkable with no evidence of radiopaque gallstones, gallbladder wall thickening, or obvious pericholecystic inflammatory changes. PANCREAS: Unremarkable. SPLEEN: Unremarkable. ADRENAL GLANDS: Unremarkable. KIDNEYS AND URETERS: Again noted is a 12 x 17 mm simple renal cyst in the mid pelvic region of the left kidney. There is no hydronephrosis or nephrolithiasis. BLADDER: Unremarkable. GASTROINTESTINAL TRACT: The small and large bowel are unremarkable. The appendix is unremarkable. ABDOMINAL WALL: No significant hernia is appreciated. LYMPH NODES: There are shotty nodes in the florecita hepatis not exceeding 1 cm short axis diameter.. VASCULAR: Mild to moderate multifocal vascular calcifications are present. PELVIC VISCERA: Unremarkable. OSSEOUS STRUCTURES: Chronic pars interarticular defect is present at L5 with subtle anterolisthesis at L5-S1. There are osteophytes involving the acetabulum and femoral head margins. There is mild hip joint space narrowing. CT/CT abdomen pelvis w IV con IMPRESSION: No abnormality is evident to explain the patient's abdominal pain. Chronic pars interarticularis defect at L5. Mild osteoarthritis involving both hips. Fleischner guidelines were followed. Electronically signed by: Александр Betts MD 05/16/2025 02:23 PM EDT Dictated By: Алекснадр Betts MD Chronic Conditions Patient?s care impacted by: Diabetes and Hypertension Critical Care Time Critical Care Time Critical Care Time: Yes Total Critical Care Time: 60 Attestation: I have personally provided critical care time exclusive of time spent on separately billable procedures. Time includes review of lab data, radiology results, discussion with consultants, and monitoring for potential decompensation. Intervention performed as documented. Discharge Plan Discharge Clinical Impression: Cyclical vomiting Patient Disposition: Admitted As Inpatient Interventions: Admission Worksheet (ED) Last Done: 05/17/25 14:07
--- NOTE | 2025-05-16 10:03 | ECG_ITS ---
Test Reason : CP Blood Pressure : */* mmHG Vent. Rate : 111 BPM Atrial Rate : 111 BPM P-R Int : 174 ms QRS Dur : 94 ms QT Int : 350 ms P-R-T Axes : 82 95 66 degrees QTcB Int : 476 ms Sinus tachycardia Biatrial enlargement Rightward axis Incomplete right bundle branch block Cannot rule out Anterior infarct , age undetermined Abnormal ECG When compared with ECG of 08-Mar-2025 14:49, No significant change was found Referred By: Caro Aquino Electronically Signed By: PENNY GALEANA
[2025-05-16 10:24] LABS: MANUAL DIFF FLAG NO
[2025-05-16 10:26] LABS: Hematocrit 46.6 % (42.0-52.0); Hemoglobin 16.8 g/dl (14.0-18.0); Imm Gran Abs Auto 0.05 X10*3/uL (0.00-0.03); Imm Gran Pct Auto 0.4 % (0.0-0.4); Lymphocytes Absolute Auto 1.3 X10*3/uL (1.2-4.9); Mean Corpuscular HGB Conc 36.1 g/dl (31.0-36.0); Mean Corpuscular Hemoglobin 36.2 pg (27.0-33.0); Mean Corpuscular Volume 100.4 fL (80.0-98.0); NRBC Abs Auto 0.000 X10*3/uL (0.0-0.012); NRBC Pct Auto 0.0 /100WBC (0.0-0.2); Platelet Count 197 X10*3/uL (160-400); Red Blood Count 4.64 X10*6/uL (4.60-5.80); White Blood Count 13.3 X10*3/uL (4.8-10.8)
[2025-05-16 10:47] LABS: Alanine Aminotransferase 106 U/L (0-40); Albumin Level 4.7 g/dL (3.5-5.0); Alkaline Phosphatase 224 U/L (39-117); Anion Gap 22 (12-20); Aspartate Amino Transferase 164 U/L (5-37); Blood Urea Nitrogen 12 mg/dL (9-16); Calcium 9.8 mg/dL (8.4-10.2); Carbon Dioxide 42 mmol/L (22-29); Chloride 92 mmol/L (96-108); Creatinine Clr Calc Pharmacy 68.5; Estimated Glomerular Filt Rate > 60; Lipase 5 U/L (8-78); Magnesium 1.6 mg/dL (1.6-2.6); Potassium 3.7 mmol/L (3.3-5.1); Sodium 152 mmol/L (135-145); Total Protein 7.8 g/dL (6.5-8.0)
[2025-05-16 10:52] LABS: Troponin-I High Sensitivity < 2.7 ng/L (<3.5-35.0)
[2025-05-16 11:03] LABS: Resp Syncy Virus RNA Qual PCR NEGATIVE (Negative); SARS COV2 PCR INHOUSE NEGATIVE (Negative)
--- NOTE | 2025-05-16 11:20 | PC.NURSE ---
pt arrives to the Exam room from [facility]- dry heaving on arrival. per labs in triage pt CO2 42. this nurse attempted IV access and was not successful 1/2 NS and NS ordered additional resources needed to obtain IV access at this time PA Aware
--- OUTSIDE RECORDS SUMMARY | 2025-05-16 11:51 | XMS_ITS | Encounter Summary ---
Author Organization [facility] Address [address] [place] [address] Phone Care Team Providers Care Field Attendant Name Role Phone Niru Crawford Primary Care Provider [phone] Encounter Details Date Type Department Care Team (Late st Contact Info) Description 09/30/2023 Documentation Only [facility] [address] [place] [id number] Linda Carrasquillo NP Social History Tobacco Use [...] Care Team (Late st Contact Info) Description 07/05/2025 4:20 PM EDT Office Visit [facility] [address] [place] [address] Juan Yee MD [address] [place] [address] [place] [address] documented as of this encounter Visit Diagnoses Not on filedocumented in this encounter Care Teams Field Attendant Relationship Specialty Start Date End Date Yvette Niru [address] [place] [address] PCP - General 11/08/24 documented as of this encounter
--- OUTSIDE RECORDS SUMMARY | 2025-05-16 11:51 | XMS_ITS | Clinical Summary ---
Author Organization [facility] Address [address] [address] Phone Care Team Providers Care Senior Foreman Name Role Phone Niru Crawford PA-C Primary Care Provider [phone] Allergies Active Allergy Reactions Criticality Noted Date Comments Quetiapine Restlessness Low 03/19/2023 Hydroxyzine Hcl Other (See Comments) 09/14/2017 Skin feels funny/fidgety Medications Medication-Free Text Medical marijuana Active FREESTYLE LITE METER meter kitIndications:Ty pe 1 diabetes mellitus with hyperglycemia Use as instructed dx: E10.65 Type 1 DM 1 each 1 06/22/20 18 Active FREESTYLE LITE Strp stripsIndications :Type 1 diabetes mellitus with hyperglycemia 1 each by Miscellaneous route 6 (six) times a day. Dx: E10.65 Type 1 DM 200 strip 11 06/30/20 18 Active insulin pump controller Misc by Miscellaneous route as needed (tandem). Active HUMALOG U-100 INSULIN 100 unit/mL injection vial inject up to 50 units via insulin pump once d sq 11 09/02/20 19 Active FREESTYLE LITE Strp stripsIndications :Type 1 diabetes mellitus with hyperglycemia USE TO TEST BLOOD SUGAR 6 TIMES DAILY 200 strip 3 03/27/20 20 Active cloNIDine HCL (CATAPRES) 0.1 MG tablet Take 1 tablet (0.1 mg total) by mouth nightly at bedtime. 3 08/23/20 21 Active lamoTRIgine (LAMICTAL) 100 MG IMMEDIATE release tablet Take 1 tablet (100 mg total) by mouth daily. 30 tablet 2 04/30/20 23 Active ggphcsot-xle-xzmo fum-folic ac 7.5 mg iron-400 mcg Tab Take 1 tablet by mouth every morning. 07/16/20 24 Active ADVAIR DISKUS 250-50 mcg/dose DISKUSIndications :Mild intermittent asthma without complication Inhale 1 puff into the lungs 2 (two) times a day. 60 each 11 10/19/19 25 Active oxyCODONE HCl 10 mg Tab Take 10 mg by mouth every 8 (eight) hours as needed. 01/02/20 25 Active cholecalciferol (VITAMIN D3) 4,000 unit tablet Take 0.25 tablets (1,000 Units total) by mouth daily. 30 tablet 2 01/12/20 25 Active VENTOLIN HFA 90 mcg/actuation inhalerIndication s:Mild intermittent asthma without complication INHALE 2 PUFFS BY MOUTH EVERY 4 HOURS NEEDED FOR WHEEZING 18 g 1 02/23/20 25 Active omeprazole (PRILOSEC) 20 MG capsuleIndication s:Gastroesophagea l reflux disease with esophagitis without hemorrhage Take 2 capsules (40 mg total) by mouth 2 (two) times a day. 120 capsule 11 02/23/20 25 Active clonazePAM (KLONOPIN) 0.5 MG tabletIndications :Anxiety Take 1 tablet (0.5 mg total) by mouth once as needed for anxiety. 15 tablet 04/06/20 25 Active meloxicam (MOBIC) 7.5 MG tablet Take 7.5 mg by mouth daily. Active baclofen (LIORESAL) 10 MG tabletIndications :Muscle spasm,Lumbar radiculopathy Take 1 tablet (10 mg total) by mouth 3 (three) times a day. 30 tablet 2 04/19/20 25 Active lisinopril (PRINIVIL,ZESTRIL ) 5 MG tabletIndications :Essential hypertension Take 1 tablet (5 mg total) by mouth daily. 90 tablet 04/19/20 25 Active lisinopril (PRINIVIL,ZESTRIL ) 5 MG tablet TAKE 1 TABLET(5 MG) BY MOUTH DAILY 90 tablet 11/27/19 24 025 Discontin ued(Reord er) amoxicillin-clavu lanate (AUGMENTIN) 875-125 mg per tablet Take 1 tablet by mouth 2 (two) times a day. 01/02/20 25 025 Discontin ued(No longer taking) cyclobenzaprine (FLEXERIL) 5 MG tabletIndications :Muscle spasm Take 1 tablet (5 mg total) by mouth 2 (two) times a day as needed (Muscle spasm). 30 tablet 02/10/20 25 025 Discontin ued(No longer taking) baclofen (LIORESAL) 10 MG tablet Take 10 mg by mouth 3 (three) times a day. 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 He has abstained from alcohol consumption and Tylenol use, which could potentially exacerbate his liver condition. He will continue his omeprazole regimen to help prevent symptoms of the nausea/vomiting/abdominal pain. Lumbar radiculopathy 01/06/2025 Assessment & Plan (04/19/2025 3:04 PM EDT): He has chronic back pain that has caused him to go to the hospital multiple times within the past 3 months. He does note improvement of his back pain on baclofen, however he has gone to the hospital to receive pain medication due to his back pain on multiple different occasions. He is continuing to go to physical therapy but has not significantly alleviated any of his back pain. He is also following with [facility] pain management clinic for which they have ordered an MRI of the cervical and lumbar spine to further assess his chronic back pain. At this time, we will continue him on baclofen 10 mg and will initiate meloxicam 7.5 mg for pain management. Also advised the use of lidocaine patches for additional relief, he does note that he already has some at home that he will use. Discussed the avoidance of opioid medications for pain management given his history of opioid use disorder and alcohol use disorder. Patient notes understanding and is in agreement. He should continue with physical therapy and follow-up with the pain management clinic. The other alternative for pain management that could be beneficial for him would be gabapentin but we will hold off at this time and focus on this regimen, will reassess at our next visit. Assessment & Plan (01/06/2025 10:48 AM EDT): He has been experiencing lumbar radiculopathy and cervical radiculopathy, which may be indicative of a pinched nerve in his spine rather than a muscular issue. He has been taking oxycodone sparingly due to its addictive nature and potential long- term health implications. He will continue his muscle relaxer regimen. Physical therapy will be initiated as part of his conservative treatment approach. An x-ray of his lumbar spine and cervical spine will be ordered to rule out any spinal issues. A referral to [facility] Physical Therapy will be made. If the x-ray results indicate a spinal issue, an MRI may be ordered and a referral to orthopedics will be considered. Abnormal chest x-ray 01/06/2025 Assessment & Plan (01/06/2025 10:48 AM EDT): He was noted to have right basilar opacification with question of pneumonitis so he was treated with meropenem and Augmentin. Will get repeat chest x-ray to assess improvement. Routine general medical exam ination at a [facility] facility 10/18/2024 Assessment & Plan (10/18/2024 2:12 PM EST): Routine lab work ordered. Bipolar disorder, in full re mission, most recent episode hypomanic 10/18/2024 Assessment & Plan (10/18/2024 2:12 PM EST): Patient noted to have a history of bipolar disorder, following psychiatry service that Dr. Remi Guzman. On lamotrigine 100 mg daily. He has an upcoming therapy appointment to establish a new therapist on Thursday. Advised patient to continue his medications as prescribed. Muscle spasm 10/18/2024 Assessment & Plan (01/06/2025 10:48 AM EDT): He has been experiencing lumbar radiculopathy and cervical radiculopathy, which may be indicative of a pinched nerve in his spine rather than a muscular issue. He has been taking oxycodone sparingly due to its addictive nature and potential long- term health implications. He will continue his muscle relaxer regimen. Physical therapy will be initiated as part of his conservative treatment approach. An x-ray of his lumbar spine and cervical spine will be ordered to rule out any spinal issues. A referral to [facility] Physical Therapy will be made. If the x-ray results indicate a spinal issue, an MRI may be ordered and a referral to orthopedics will be considered. Assessment & Plan (10/18/2024 2:13 PM EST): Patient notes history of back spasms that cause hospitalization due to severe white knuckling pain. He denies any pain management including Tylenol and ibuprofen as it messes with his blood sugar. He states he gets these back spasms twice a week. Discussed with the patient that the next time this back spasm occurs, he should call the office to schedule an appointment. Mild intermittent asthma without complication Assessment & Plan (10/18/2024 2:15 PM EST): Patient notes history of asthma on Advair Diskus twice daily and albuterol as needed. Substance use disorder 10/18/2024 Assessment & Plan (10/18/2024 2:16 PM EST): Patient notes history of substance use disorder, previously using IV cocaine and heroin. He has been sober since 2009, patient congratulated on this achievement. Controlled type 1 diabetes cristy mclaughlin with microalbuminuric diabetic nephropathy 10/18/2024 Assessment & Plan (04/19/2025 3:04 PM EDT): Following with [facility] endocrinology, well-managed with most recent A1c of 5.6. Assessment & Plan (10/18/2024 2:18 PM EST): Patient noted to have persistent microalbuminuria, following with nephrology with an upcoming appointment scheduled in 2 weeks. Thought to be in the setting of diabetic nephropathy, however clinically stable. Essential hypertension 08/27/2022 Assessment & Plan (04/19/2025 3:04 PM EDT): Blood pressure significantly elevated in the office today at 160/104 but has been normal at previous visits. He notes that he has been inconsistently taking his lisinopril. Discussed the importance of taking his lisinopril consistently in order to manage his blood pressure, he notes understanding and will start to take it more consistently. He does note that he takes his blood pressure at home and the majority of the time blood pressure readings are within normal limits. Will reassess at next visit and if blood pressure still elevated will increase the lisinopril dose to 10 mg daily. Assessment & Plan (10/18/2024 2:07 PM EST): On lisinopril 5 mg daily. Blood pressure was slightly elevated in the office today at 140/80, patient states he takes his blood pressure at home and is usually within normal limits. Also being followed by nephrology. 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 Nonetheless the patient has been encouraged to continue the dexamethasone and will follow up with the neurologist that was mentioned above. We will set up the referral so that the appointment can be honored. Poor dentition 04/11/2020 Nicotine dependence, cigarettes, uncomplicated 0 01/14/2019 Assessment & Plan (10/18/2024 2:11 PM EST): Patient smokes 2 cigarettes a day. He is interested in cessation, cessation discussed. He has trialed Chantix and nicotine patches without improvement. Anxiety 09/24/2017 Assessment & Plan (10/18/2024 2:10 PM EST): On lamotrigine 100 mg daily prescribed by Dr. Remi Guzman. Uses clonazepam 0.5 mg as needed in stressful situations. [employer] reviewed, clonazepam prescribed. Advised the patient that I do not do refills regarding the clonazepam as it is a controlled substance. Controlled substance agreement signed in office today. Depression 09/24/2017 Femoroacetabular impingement of left hip 017 Femoroacetabular impingement of right hip 2016 Gastroesophageal reflux dise ase with esophagitis without hemorrhage 09/24/2017 Assessment & Plan (10/18/2024 2:09 PM EST): Patient noted to have a history of GERD with esophagitis, last endoscopy noted to be 03/16/2023. Currently on omeprazole 40 mg twice daily. Discussed with the patient long-term use of PPIs, will consider future endoscopy to assess for Grigsby's esophagus. History of opioid abuse 09/24/2017 Insomnia 09/24/2017 Medical marijuana use 09/24/2017 History of methadone use 09/24/2017 PTSD (post-traumatic stress disorder) 09/24/2017 Assessment & Plan (10/18/2024 2:11 PM EST): History of PTSD with triggers of family photos, , and people being physically aggressive. Arthralgia of hip 09/24/2017 Type 1 diabetes mellitus without complication Assessment & Plan (10/18/2024 2:09 PM EST): Patient noted to have type 1 diabetes without complication, last A1c on 03/29/2024 was 5.3%. He does follow with endocrinology and diabetes center at [place], upcoming appointment tomorrow. He uses a Dexcom monitor for blood sugar monitoring and has an insulin pump. He has never had a diabetic eye exam, [facility] referral placed. He has never had a diabetic foot exam, denies neuropathy. Will obtain hemoglobin A1c and microalbumin/creatinine. Assessment & Plan (03/21/2022 4:17 PM EDT): Excellent control on Insulin pump F/u endo Assessment & Plan (05/22/2020 1:38 PM EDT): Blood sugars appear to be in good control and do not appear to be the issue at hand. The patient's fall prone due to some underlying neuropathy which would be expected with a longstanding history of severe hyperglycemia. Patient notes that hypoglycemia is much better managed with the insulin pump together with Dexcom. Patient will revisit the home as it pertains to fall risk and will make adjustments. No changes to the insulin protocols though. Assessment & Plan (04/30/2020 9:36 AM EDT): Type 2 diabetes reviewed with patient, last A1c of March at 6.2% within target range, continue current management insulin pump. Encounters Date Type Department Care Team Description 05/10/2025 Orders Only [facility] [address] [place] [address] Provider, MD Otto 05/05/2025 Telephone [facility] [address] [place] [address] Niru Crawford PA-C Results 04/29/2025 9:41 AM EDT - 04/29/2025 11:59 PM EDT Hospital Encounter [facility], [address] [address] Niru Crawford PA-C Discharge Disposition: Home or Self Care 04/27/2025 10:19 AM EDT - 04/27/2025 11:59 PM EDT Hospital Encounter [facility] [address] [place] [address] Niru Crawford PA-C Discharge Disposition: Home or Self Care 04/27/2025 Telephone [facility] [address] [place] [address] Niru Crawford PA-C Results 04/24/2025 Telephone [facility] [address] [facility] [place] [address] Niru Crawford PA-C Request For Order(s) 04/19/2025 2:00 PM EDT Office Visit [facility] [address] [place] [address] Niru Crawford PA-C Type 1 diabetes mellitus without complication (Primary Dx); Muscle spasm; Lumbar radiculopathy; Essential hypertension; 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 04/19/2025 Procedure Pass [facility], Ct Scan - [facility] [address] [place] [address] 04/19/2025 Telephone [facility] [address] [place] [address] Niru Crawford PA-C Question on imaging 04/07/2025 Telephone [facility] [address] [place] [address] Niur Crawford PA-C Pain Management Referral 04/06/2025 Refill [facility] [address] [place], [place] [id number] Rafia Negrete Medication Refill 04/06/2025 Telephone [facility] [address] [place] [address] Rafia Negrete Follow-up (ED visit ) 03/20/2025 Orders Only [facility] [address] [place] [address] Otto Jiménez MD 03/20/2025 Telephone [facility] [address] [place] [address] Niru Crawford PA-C Follow-up 03/09/2025 Orders Only [facility] [address] [place] [address] Otto Jiménez MD 02/23/2025 Telephone [facility] [address] [place] [address] Niru Crawford PA-C Medication Prior Authorization (VENTOLIN HFA 90 mcg/actuation inhaler) 02/21/2025 Refill [facility] [address] [place] [address] Niru Crawford PA-C Medication Refill 02/13/2025 Orders Only [facility] [address] [place] [address] Provider, MD Otto from Last 3 Months Immunizations Immunization Administration Dates Next Due Influenza Quadrivalent MDCK Preservative Free IM 08/09/2022,09/19/2020 Influenza Quadrivalent Prese rvative Free IM 07/29/2023,08/23/2021,09/19/2020,09/30,07/15/2018,09/09/2017 Influenza Trivalent MDCK Pre servative Free IM 09/01/2013 Influenza Trivalent Preserva tive Free IM 07/20/2024,09/18/2016,07/27/2015 Influenza Trivalent w/ Preservative IM 4,08/04/2012,06/27/2011 Influenza, Unspecified Formulation 09/04/2010, Pneumococcal conjugate PCV13 08/18/2008 Pneumococcal polysaccharide PPSV23 09/22/2019, Tdap 10/21/2024,04/21/2020 Family History * Patient is adopted Medical History Relation Comments COPD Father Depression Father Drug use disorder Father COPD Mother Relation Status Comments Father Alive Mother Alive Sister Alive Social History Tobacco Use Types Packs/Day Years Used Date Smoking Tobacco: Every Day Cigarettes 0.3 31.6 Started: 10/12/1987; Last attempted to quit: 10/12/2017 Smokeless Tobacco: Never Tobacco Cessation:Ready to Q uit: Not Asked; Counseling Given: Not Answered Comments:2 cigarettes daily, 1 pack per week [...] your housing situation today? I have madhu sing 08/27/2022 How many times have you move [...] on file Sexual Orientation Not on file Last Filed Vital Signs Vital Sign Reading Time Taken Comments Blood Pressure 160/104 04/19/2025 1:51 PM EDT Pulse 80 04/19/2025 1:51 PM EDT Temperature 36.6 C (97.8 F) 04/19/2025 1:51 PM EDT Respiratory Rate 18 04/19/2025 1:51 PM EDT Oxygen Saturation 99% 04/19/2025 1:51 PM EDT Inhaled Oxygen Concentration - - Weight 70.8 kg (156 lb) 04/19/2025 1:51 PM EDT Height 181 cm (5' 11.26 ) 04/19/2025 1:51 PM EDT Body Mass Index 21.6 04/19/2025 1:51 PM EDT Plan of Treatment Upcoming Encounters Date Type Department Care Team (Late st Contact Info) Description 05/17/2025 9:15 AM EDT Appointment [address] [place], [place] [address] Niru Crawford PA-C [address] [place] [address] [email or web address] 06/29/2025 8:40 AM EDT Office Visit [facility] [address] [place] [address] Niru Crawford PA-C [address] [place], [place] [id number] [email or web address] Health Maintenance Due Date Last Done Comments HEPATITIS A VACCINES (1 of 2 - Risk 2-dose series) 1993 COLOGUARD 2019 FIT TEST 2019 FOBT 2019 SIGMOIDOSCOPY 2019 VIRTUAL COLONOSCOPY 2019 DIABETIC EYE EXAM 11/14/2023 11/14/2022, , 06/18/2016 COVID-19 VACCINE ( season) 2024 08/09/2022, 02/16/2021, 01/27/2021 PNEUMOCOCCAL VACCINES (50+ years) (3 of 3 - PCV20 or PCV21) 2024 09/22/2019, 09/04/2010, 08/18/2008 ZOSTER VACCINES (1 of 2) 2024 BLOOD PRESSURE 10/20/2025 04/19/2025 HEMOGLOBIN A1C 10/28/2025 04/27/2025, 03/12, 12/17/2023, Additional history exists DEPRESSION SCREENING 01/06/2026 01/06/2025, 02/09/20 18 SMOKING Hx and SMOKELESS TOBACCO SCREENING 04/19/2026 04/19/2025 CREATININE LEVEL 04/27/2026 04/27/2025, 04/2023, 05/06/2022, Additional history exists LIPID PANEL 04/27/2026 04/27/2025, 03/12, 08/12/2022, Additional history exists POTASSIUM LEVEL 04/27/2026 04/27/2025, 04/0 04/2023, 05/06/2022, Additional history exists COLONOSCOPY 03/16/2033 03/16/2023 COLORECTAL CANCER SCREENING 03/16/2033 Adult Td,Tdap Booster 10/21/2034 10/21/2024, 020 HIV ONE-TIME SCREENING (18-65 YEARS) Completed 09/22/2019 HEPATITIS C SCREENING Completed 09/09/2021 , 09/09/2021, 08/26/2021 HIB VACCINES Aged Out No longer eligi ble based on patient's age to complete this topic MENINGOCOCCAL VACCINES (ACWY) Aged Out No longer eligible based on patient's age to complete this topic MENINGOCOCCAL VACCINES (B) Aged Out N o longer eligible based on patient's age to complete this topic Medical Devices Not on file Procedures Procedure Name Priority Date/Time Associated Diagnosis Comments OUTSIDE IMAGING Routine 05/09/2025 8:03 AM EDT OUTSIDE IMAGING Routine 05/09/2025 8:[address] ABDOMEN/PELVIS WITH CONTRAST Routine 04/29/2025 11:35 AM EDT Left inguinal pain MICROALBUMIN/CREATINI NE RATIO, RANDOM URINE Routine 04/27/2025 10:47 AM EDT Routine general medical examination at a health care facility Type 1 diabetes mellitus without complication HEMOGLOBIN A1C Routine 04/27/2025 10:19 AM EDT Routine general medical examination at a health care facility Type 1 diabetes mellitus without complication TSH WITH REFLEX Routine 04/27/2025 10:19 AM EDT Routine general medical examination at a health care facility LIPID PANEL Routine 04/27/2025 10:19 AM EDT Routine general medical examination at a health care facility COMPREHENSIVE METABOLIC PANEL Routine 04/27/2025 10:19 AM EDT Left inguinal pain OUTSIDE LAB Routine 03/18/2025 4:44 PM EDT OUTSIDE ECG Routine 03/16/2025 4:41 PM EDT OUTSIDE ECG Routine 03/15/2025 4:46 PM EDT OUTSIDE ECG Routine 03/15/2025 4:[address] IMAGING REPORT ONLY Routine 03/15/2025 4:[address] IMAGING REPORT ONLY Routine 03/15/2025 4:[address] ABD/PELVIS REPORT ONLY Routine 03/08/2025 7:16 AM EDT COLONOSCOPY FOR RESULT ENTRY ONLY Routine 03/16/2023 DIABETES EYE EXAM FOR RESULT ENTRY ONLY Routine 11/14/2022 HEPATITIS C ANTIBODY, QUALITATIVE Routine 09/09/2021 10:25 AM EST Liver function abnormality from Last 3 Months or Most Recently Relevant to Health Maintenance Results * Outside Imaging Report Only (05/09/2025 8:03 AM EDT) us Historical Provider IMG XR CHEST Final Res ult * Outside Imaging Report Only (05/09/2025 8:01 AM EDT) us Historical Provider IMG XR CHEST Final Res ult * CT ABDOMEN/PELVIS WITH CONTRAST (04/29/2025 11:35 AM EDT) Anatomical Region Laterality Modality Abdomen, Pelvis Computed Tomogra phy 05/05/2025 10:3 2 AM EDT Impressions 05/05/2025 10:49 AM EDT 1. Hypodense lesion left kidney suspected to represent incidental proteinaceous parapelvic cyst. Sonography recommended for confirmation. 2. Diminutive left hepatic lobe and relatively enlarged right lobe without focal parenchymal lesion or of biliary obstruction. 3. No evidence of inguinal hernia. Bilateral L5 spondylolysis without spondylolisthesis. Narrative 05/05/2025 10:[address] ABDOMEN/PELVIS WITH CONTRAST Referring clinician's provided indication for this examination in Epic: * Abdominal pain, hernia suspected; Left inguinal pain with increased abdominal pressure TECHNIQUE: Multidetector-row CT of the abdomen and pelvis was performed after administration of intravenous contrast using tailored dose modulation techniques. Images were reconstructed in the axial, coronal, and sagittal planes. COMPARISON: 09/09/2021 ultrasound FINDINGS: Lower Chest: No focal airspace consolidation or pleural effusion. Liver: Right lobe enlarged at approximately 19.8 cm in craniocaudal span with a relatively diminutive left lobe but no focal parenchymal lesion apparent. Biliary: No evidence of biliary obstruction. Gallbladder contracted. Spleen: No splenomegaly or focal parenchymal lesion. Pancreas: Relatively atrophic without focal parenchymal mass or duct dilatation. Adrenal Glands: No nodules. Kidneys/Ureters: There is a circumscribed 1.7 x 1.2 cm hypodense lesion in the left interpolar region displaying internal density measurements above that of simple fluid. This may represent a proteinaceous cyst. No additional parenchymal cyst or mass. No hydronephrosis, perirenal stranding, or nephrolithiasis. Bowel: There are a few mildly prominent jejunal loops without discrete transition zone to imply obstruction, and without ileal loop distention demonstrated. Appendix unremarkable. Colon nondistended. No annular constricting mass, focal wall thickening, or significant paracolic fat infiltration. Peritoneum/Retroperitoneum: No free fluid or mass. Lymph Nodes: Mildly prominent non-specific periportal nodes measuring up to 8 mm. No pathologically enlarged mesenteric, para-aortic, iliac chain, or inguinal nodes noted. Pelvic Organs/Bladder: Bladder decompressed making it difficult to assess wall thickness. No pelvic free fluid or mass. Nonspecific prostatic calcifications. Vessels: Aortoiliac atherosclerotic plaquing without focal aneurysm. Main portal vein grossly patent. Bones/Soft Tissues: No abdominal wall mass or hernia. L5 spondylolysis without mireya spondylolisthesis. Osteoarthritic change in the hips without evidence of acute traumatic or destructive bony lesion. Procedure Note Albino Holland MD - 05/05/2025 CT ABDOMEN/PELVIS WITH CONTRAST Referring clinician's provided indication for this examination in Epic: *Abdominal pain, hernia suspected; Left inguinal pain with increasedabdominal pressure TECHNIQUE: Multidetector-row CT of the abdomen and pelvis was performedafter administration of intravenous contrast using tailored dosemodulation techniques. Images were reconstructed in the axial, coronal,and sagittal planes. COMPARISON: 09/09/2021 ultrasound FINDINGS: Lower Chest: No focal airspace consolidation or pleural effusion. Liver: Right lobe enlarged at approximately 19.8 cm in craniocaudal spanwith a relatively diminutive left lobe but no focal parenchymal lesionapparent. Biliary: No evidence of biliary obstruction. Gallbladder contracted. Spleen: No splenomegaly or focal parenchymal lesion. Pancreas: Relatively atrophic without focal parenchymal mass or ductdilatation. Adrenal Glands: No nodules. Kidneys/Ureters: There is a circumscribed 1.7 x 1.2 cm hypodense lesion inthe left interpolar region displaying internal density measurements abovethat of simple fluid. This may represent a proteinaceous cyst. Noadditional parenchymal cyst or mass. No hydronephrosis, perirenalstranding, or nephrolithiasis. Bowel: There are a few mildly prominent jejunal loops without discretetransition zone to imply obstruction, and without ileal loop distentiondemonstrated. Appendix unremarkable. Colon nondistended. No annularconstricting mass, focal wall thickening, or significant paracolic fatinfiltration. Peritoneum/Retroperitoneum: No free fluid or mass. Lymph Nodes: Mildly prominent non-specific periportal nodes measuring upto 8 mm. No pathologically enlarged mesenteric, para-aortic, iliac chain,or inguinal nodes noted. Pelvic Organs/Bladder: Bladder decompressed making it difficult to assesswall thickness. No pelvic free fluid or mass. Nonspecific prostaticcalcifications. Vessels: Aortoiliac atherosclerotic plaquing without focal aneurysm. Mainportal vein grossly patent. Bones/Soft Tissues: No abdominal wall mass or hernia. L5 spondylolysiswithout mireya spondylolisthesis. Osteoarthritic change in the hips withoutevidence of acute traumatic or destructive bony lesion. IMPRESSION: 1. Hypodense lesion left kidney suspected to represent incidentalproteinaceous parapelvic cyst. Sonography recommended for confirmation. 2. Diminutive left hepatic lobe and relatively enlarged right lobewithout focal parenchymal lesion or of biliary obstruction. 3. No evidence of inguinal hernia. Bilateral L5 spondylolysis withoutspondylolisthesis. Niru Crawford PA-C IMG CT ABD/PELVIS Final Resu lt * (ABNORMAL) Microalbumin/creatinine ratio, random urine (04/27/2025 10:47 AM EDT) URINE MICROALBUMIN 2.6(H) 0 - 2.3 mg/dL [facility] URINE CREATININE 115 mg/dL [employer] [facility] MICROALB/CRE RATIO 22.6(H) 0 - 20 mg/g Cre [facility] Urine (Urine) 04/27/2025 10: 47 AM EDT 04/27/2025 10:51 AM EDT Niru Crawford PA-C URINE ORDERABLES Final Resul t [facility] [address] [place] [address] * (ABNORMAL) Comprehensive metabolic panel (04/27/2025 10:19 AM EDT) SODIUM 142 133 - 146 mmol/L [facility] POTASSIUM 4.2 3.3 - 5.1 mmol/L [facility] CHLORIDE 105 96 - 108 mmol/L [facility] CO2 25 21 - 35 mmol/L [facility] BUN 12 6 - 19 mg/dL [facility] CREATININE 1.00 0.5 - 1.5 mg/dL [facility] GLUCOSE 85 70 - 99 mg/dL [facility] ALBUMIN 4.2 3.9 - 4.8 g/dL [facility] TOTAL PROTEIN 6.8 6.5 - 8.0 g/dL [facility] CALCIUM 9.2 8.4 - 10.3 mg/dL [facility] ALKALINE PHOSPHATASE 243(H) 39 - 117 U/L [facility] TOTAL BILIRUBIN 0.7 0.0 - 1.2 mg/dL [facility] AST 215(H) 0 - 37 U/L [facility] ALT 74(H) 0 - 40 U/L [facility] GLOBULIN 2.6 1 - 4.8 g/dL [facility] EGFR 92 >59 mL/min/1.7 3m2 [facility] Comment:Estimated glomerular filtration rate calculated using the CKD-EPI refit equation. ANION GAP 16 10 - 20 mmol/L [facility] Blood 04/27/2025 10:1 9 AM EDT 04/27/2025 10:[address] [facility] Crawford PA-C LAB BLOOD ORDERABLES Final R esult Performing Organization Address City/[facility]/ZIP Co de Phone Number [address] [address] * TSH with reflex (04/27/2025 10:19 AM EDT) TSH 1.45 0.27 - 4.20 uIU/mL [facility] Blood 04/27/2025 10:1 9 AM EDT 04/27/2025 10:[address] [facility] Crawford PA-C LAB BLOOD ORDERABLES Final R esult Performing Organization Address [facility]/ZIP Co de Phone Number [address] [address] * Hemoglobin A1c (04/27/2025 10:19 AM EDT) HEMOGLOBIN A1C 5.5 4.3 - 5.8 % [facility] Blood 04/27/2025 10:1 9 AM EDT 04/27/2025 10:35 AM EDT [facility] PA-C LAB BLOOD ORDERABLES Final R esult Performing Organization Address City/[facility] Co de Phone Number [address] [address] * (ABNORMAL) Lipid panel (04/27/2025 10:19 AM EDT) HDL 75 mg/dL [facility] Comment: Interpretation <40 mg/dL: Low HDL cholesterol (major risk factor for CHD) Greater than or equal to 60 mg/dL: High HDL cholesterol ( negative risk factor for CHD) HDL - cholesterol is affected by a number of factors, e.g. smoking, excerise, hormones, sex and age. CHOLESTEROL 130 0 - 240 mg/dL [facility] TRIGLYCERIDES 214(H) 30 - 160 mg/dL [facility] LDL 12(L) 50 - 129 mg/dL [facility] Comment: LDL levels in terms of risk for coronary heart disease: <100 mg/dL: Optimal 100-129 mg/dL: Near or above optimal 130-159 mg/dL: Borderline high 160-189 mg/dL: High >190 mg/dL: Very High CARDIAC RISK RATIO 1.7(L) 3.4 - 5.0 C [facility] Blood 04/27/2025 10:1 9 AM EDT 04/27/2025 10:35 AM EDT Result [facility] Niru Crawford PA-C LAB BLOOD ORDERABLES Final R esult [address] [address] * Outside Lab (03/18/2025 4:44 PM EDT) Result [facility] Historical Provider LAB BLOOD ORDERABLES Edit ed Result - Final * Outside ECG Report Only (03/16/2025 4:41 PM EDT) Only the most recent of3 resultswithin the time period is included. Result [facility] Historical Provider ECG ORDERABLES Edited Re sult - Final * Outside CT Imaging Report Only (03/15/2025 4:44 PM EDT) Result [facility] Historical Provider IMG CT Edited Re sult - Final * Outside CT Imaging Report Only (03/15/2025 4:42 PM EDT) Result [facility] Historical Provider IMG CT Edited Re sult - Final * Outside CT Abd/pelvis Report Only (03/08/2025 7:16 AM EDT) Result [facility] Historical Provider MD FRIASG CT ABD/PELVIS Final R esult * [facility] COLONOSCOPY FOR RESULT ENTRY ONLY (03/16/2023) Result [facility] Linda Carrasquillo NP HEALTH MAINTENANCE Edited Resul t - Final * [facility] DIABETES EYE EXAM FOR RESULT ENTRY ONLY (11/14/2022) Linda Carrasquillo NP HEALTH MAINTENANCE Edited Resul t - Final * Hepatitis C antibody, qualitative (09/09/2021 10:25 AM EST) HCV NON-REACTIV E NON-REACTI VE [facility] Blood 09/09/2021 10:2 5 AM EST 09/09/2021 10:27 AM EST Linda Carrasquillo NP LAB BLOOD ORDERABLES Final Resu lt [address] [address] from Last 3 Months or Most Recently Relevant to Health Maintenance [place] [id number] [facility] Care Teams Senior Foreman Relationship Specialty Start Date End Date Niru Crawford PA-C [address] [place] [id number] [email or web address] PCP - General Physician Esl Instructor 10/18/24 Additional Source Comments The information contained in this document represents components of the legal health record. It is not the complete legal health record.[facility]
--- NOTE | 2025-05-16 12:00 | PC.NURSE ---
US IV being attempted at this time
--- NOTE | 2025-05-16 12:12 | PC.NURSE ---
US Line attempt by Grey Eng RN was unsucessful. PA aware.
[2025-05-16] MEDS: iohexoL 350 MG/ML 100 ML INFUS..BTL IV (14:10)
[2025-05-16 15:27] LABS: Alanine Aminotransferase 82 U/L (0-40); Albumin Level 4.0 g/dL (3.5-5.0); Alkaline Phosphatase 177 U/L (39-117); Anion Gap 13 (12-20); Aspartate Amino Transferase 118 U/L (5-37); Blood Urea Nitrogen 13 mg/dL (9-16); Calcium 8.1 mg/dL (8.4-10.2); Carbon Dioxide 39 mmol/L (22-29); Chloride 98 mmol/L (96-108); Creatinine Clr Calc Pharmacy 71.4; Estimated Glomerular Filt Rate > 60; Potassium 3.2 mmol/L (3.3-5.1); Sodium 147 mmol/L (135-145); Total Protein 6.3 g/dL (6.5-8.0)
[2025-05-16 15:41] LABS: Glucose, Whole Blood 70 mg/dL (60-115)
[2025-05-16] MEDS: KCl 40 mEq in 5% Dex/0.45% Sod 40 MEQ/1,000 ML IV.SOLN 250 MEQ IVCONT (16:42)
[2025-05-16 18:26] LABS: Glucose, Whole Blood 214 mg/dL (60-115)
--- NOTE | 2025-05-16 19:05 | P.HPHOSP_ITS ---
History of Present Illness Date of Service: 05/16/25 Chief Complaint: Abdominal pain, nausea and vomiting This has a 49-year-old male with pertinent history of type 1 diabetes mellitus, hypertension, polysubstance use disorder, chronic back pain, gastroesophageal reflux disease with history of erosive esophagitis, liver cirrhosis, mood disorder who presents to the emergency department for evaluation of abdominal pain, nausea and vomiting. Patient states his symptoms started 1 day prior to presentation. He started having back spasms for which he sees pain management outpatient. Subsequently patient had multiple episodes of nausea and nonbloody emesis. States he had mood than 40 episodes of vomiting overnight. Also complains of generalized abdominal discomfort which is constant and without any relieving factors. States he had 2 episodes of loose stools, nonbloody. Unable to tolerate p.o. intake as he also complains of odynophagia with any p.o. intake. Admits symptoms of gastroesophageal reflux disease. Patient states he smokes marijuana every day and he last smoked 2 days prior to presentation. No fever, chills, chest pain, palpitations, shortness of breath, changes in urinary habits. In the emergency department, patient was found to be hypernatremic, hypokalemic and with multiple episodes of nausea and vomiting. Review of Systems 2 Constitutional: Constitutional: Reports fatigue, Reports malaise and Reports poor appetite Cardiovascular: Cardiovascular: Reports no additional cardiovascular complaints Respiratory: Respiratory: Reports no additional respiratory complaints Gastrointestinal: Gastrointestinal: Reports abdominal pain, Reports loose stools, Reports nausea and Reports vomiting Genitourinary: Genitourinary: Reports no additional male genitourinary complaints Endocrine: Endocrine: Reports fatigue [facility] Medical History Constipation History of methadone use Intravenous drug user Peripheral vascular disease Elevated liver function tests Polysubstance abuse Osteoarthritis Type 1 diabetes History of drug abuse Depression Vitamin D deficiency Hypoglycemia unawareness associated with type 1 diabetes mellitus Diabetes type 1, uncontrolled Diabetes Family History Father No problems noted. Mother No problems noted. Surgical History History of esophagogastroduodenoscopy (EGD) H/O colonoscopy Hx of hernia repair Social History Household Members: Family Household Members Other:: mother Housing: House Do you presently have visiting nurse or other home services: No Alcohol intake: former Patient Tobacco Use Status: Current everyday Tobacco user Tobacco use type: Cigarette Cigarettes Per Day: 3 Years Smoked: 33 Smoked in Last 30 Days: Yes e-Cigarette/Vaping Use: Currently Using Second Hand Smoke Exposure: No Use of substances other than those prescribed or required for medical reasons: Yes Substance Use Type: Marijuana Substance Use Frequency Other:: 2 Last Used Substance: Days (ago) Advance Directives: Yes Advance Directives on File: Yes Advance Directives Date on File: 08/29/20 service: No Current occupational status: unemployed Meds Allergies Allergy/AdvReac Type Severity Reaction Status Date / Time hydroxyzine (From VISTARIL) Allergy Intermediate RASH, Verified 05/16/25 09:54 ANXIOUS quetiapine (Seroquel) AdvReac Intermediate Unknown Verified 05/16/25 09:54 Active Medications: Current Medications Potassium Chloride/Dextrose/Sod Cl (Kcl 40 Meq In 5% Dex/0.45% Sod) 40 meq in 1,000 mls @ 250 mls/hr IVCONT .Q4H ASHLEIGH Last Admin: 05/16/25 16:42 Dose: 250 mls/hr Home Medications ?Medication ?Instructions ?Recorded ?Confirmed ?Last Taken ?Type clonazepam 0.5 mg tablet 0.5 mg PO BEDTIME PRN Anxiet y 07/16/21 05/16/25 01/31/24 History subcutaneous insulin pump (Tandem 12/29/24 05/10/25 0 02/11/25 09:00 History Mobi System) cholecalciferol (vitamin D3) 25 25 mcg PO DAILY 05/16/25 05/16/25 History mcg (1,000 unit) tablet clonidine HCl 0.1 mg tablet 0.1 mg PO DAILY 01/16/25 0 05/16/25 05/16/25 History 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,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,cont 05/10/25 05/10/25 Unknown History ([employer]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) folic acid 1 mg tablet 1 mg PO DAILY 05/16/2505/1605/16/25 History lidocaine 5 % topical patch 1 patch topical DAILY 03/0505/16/25 Unknown History lisinopril 5 mg tablet 5 mg PO DAILY 05/16/2505/1605/16/25 History omeprazole 40 mg capsule,delayed 40 mg PO DAILY 05/16/25 05/16/25 History release thiamine HCl (vitamin B1) 100 mg 100 mg PO DAILY 05/1605/16/25 05/16/25 History tablet Physical Exam 2 Vital Signs and Narrative: Vital Signs: Last Vital Signs Temp 99.1 F 05/16/25 18:40 Pulse 77 05/16/25 18:40 Resp 14 05/16/25 18:40 BP 153/84 H 05/16/25 18:40 Pulse Ox 100 05/16/25 18:40 O2 Del Method Room Air 05/16/25 18:40 BMI result Body Mass Index 20.9 Middle-aged male lying in bed in no distress Neck supple, no JVD Regular rate and rhythm, S1-S2 heard Regular breath sounds bilaterally, no wheezing or crackles appreciated Abdomen with generalized abdominal tenderness with mild palpation, no rigidity Patient is awake, alert and oriented to self, place, time and person ; no focal motor deficit Psych: Normal mood No pedal edema Results Labs 05/16/25 10:19 05/16/25 15:02 Labs: Laboratory Results - last 24 hr 05/16/25 05/16/25 05/16/25 10:19 15:02 15:37 MCV 100.4 H MCH 36.2 H MCHC 36.1 H RDW 12.9 Plt Count 197 MPV 10.3 Immature Gran % (Auto) 0.4 Neut % (Auto) 80.9 H Lymph % (Auto) 10.1 L Meriwether % (Auto) 8.4 Eos % (Auto) 0.0 Baso % (Auto) 0.2 Lymph # (Auto) 1.3 Meriwether # (Auto) 1.1 Eos # (Auto) 0.0 Baso # (Auto) 0.0 Abs Immat Gran (auto) 0.05 H Absolute Neuts (auto) 10.8 H Absolute Nucleated RBC 0.000 Nucleated RBC % (auto) 0.0 Anion Gap 22 H 13 Estim Creat Clear Calc 68.5 71.4 Estimated GFR > 60 > 60 POC Glucose 70 Random Glucose 130 H 82 Calcium 9.8 8.1 L D Magnesium 1.6 Total Bilirubin 1.3 H 1.1 H Direct Bilirubin 0.4 AST 164 H 118 H ALT 106 H 82 H Alkaline Phosphatase 224 H 177 H Total Creatine Kinase 94 Total Protein 7.8 6.3 L Albumin 4.7 4.0 Lipase 5 L Beta-Hydroxybutyrate 0.62 H Influenza Type A (PCR) NEGATIVE Influenza Type B (PCR) NEGATIVE RSV RNA Qual (PCR) NEGATIVE SARS-CoV-2 RNA (RT-PCR) NEGATIVE 05/16/25 18:21 MCV MCH MCHC RDW Plt Count MPV Immature Gran % (Auto) Neut % (Auto) Lymph % (Auto) Meriwether % (Auto) Eos % (Auto) Baso % (Auto) Lymph # (Auto) Meriwether # (Auto) Eos # (Auto) Baso # (Auto) Abs Immat Gran (auto) Absolute Neuts (auto) Absolute Nucleated RBC Nucleated RBC % (auto) Anion Gap Estim Creat Clear Calc Estimated GFR POC Glucose 214 H Random Glucose Calcium Magnesium Total Bilirubin Direct Bilirubin AST ALT Alkaline Phosphatase Total Creatine Kinase Total Protein Albumin Lipase Beta-Hydroxybutyrate Influenza Type A (PCR) Influenza Type B (PCR) RSV RNA Qual (PCR) SARS-CoV-2 RNA (RT-PCR) Imaging Radiologist's Impressions: Impressions Abdomen/Pelvis CT 05/16/25 13:32 IMPRESSION: No abnormality is evident to explain the patient's abdominal pain. Chronic pars interarticularis defect at L5. Mild osteoarthritis involving both hips. Fleischner guidelines were followed. Electronically signed by: Александр Betts MD 05/16/2025 02:23 PM EDT Assessment and Plan (1) Nausea & vomiting: Status: Acute Plan This has a 49-year-old male with pertinent history of type 1 diabetes mellitus, hypertension, polysubstance use disorder, chronic back pain, gastroesophageal reflux disease with history of erosive esophagitis, liver cirrhosis, mood disorder who presents to the emergency department for evaluation of abdominal pain, nausea and vomiting. #. Intractable nausea and vomiting with generalized abdominal pain: Cannabis hyperemesis syndrome likely contributing. ?Underlying diabetic gastroparesis. Patient does admit to smoking marijuana every day. Will admit patient with conservative management and continue IV crystalloid resuscitation. #. Odynophagia: Patient does have gastroesophageal reflux disease with history of erosive esophagitis. Initiating IV Protonix and consulted Gastroenterology. Discontinue NSAIDs #. Hypernatremia, hypovolemic: Improving with hypotonic crystalloids #. Hypokalemia due to GI losses: Repleted #. Type 1 diabetes mellitus: Patient is on insulin pump. Initiating Accu- Cheks with sliding scale insulin #. Alcohol use disorder. Monitor CIWA. Denies concerns for withdrawal. On thiamine and folic acid #. Mood disorder: Continue home mood stabilizers #. Hypertension: Continue home antihypertensives #. Chronic back pain: On baclofen #. Leukocytosis, reactive Med rec pending DVT prophylaxis: Lovenox Full code Admit as inpatient and will require two night minimum hospital stay for evaluation and management of intractable nausea and vomiting (as above), which is not possible in a lesser acute setting. Specialist consult pending Quality Stroke Does the patient have a stroke diagnosis?: No VTE Prior VTE?: No VTE Risk Level:: Medical - moderate - high VTE Device Contraindication: Treatment Not Indicated VTE Drug Contraindication: N/A - Med Ordered
--- NOTE | 2025-05-16 19:39 | PHA.MEDREC ---
Pharmacy Consult ? Medication Reconciliation Pharmacy has completed the medication reconciliation.
[2025-05-16 20:41] LABS: Appearance Urine Clear; Glucose Urine UA Negative (Negative); PH >= 9.0 (5.0-9.0); Specific Gravity - Urine >= 1.030 (1.005-1.025); UMIC TRIGGER UACC YES
[2025-05-16 20:47] LABS: Glucose, Whole Blood 223 mg/dL (60-115)
--- NOTE | 2025-05-16 21:00 | PC.NURSE ---
pt A+Ox3 w/ insulin pump independently controlled, per Dr. Castro stop infusion of K in D5/0.45 NS @2035 and begin infusing 0.45 NS @125ml/hr
[2025-05-16] MEDS: Potassium Chloride/H20 10 MEQ/100 ML PIGGYBACK 100 MEQ IV ×3 (21:18→23:18)
[2025-05-16 23:53] LABS: Cannabinoid Screen Urine POSITIVE (Not Detect)
[2025-05-17] MEDS: Potassium Chloride/H20 10 MEQ/100 ML PIGGYBACK 100 MEQ IV (00:20)
[2025-05-17 06:12] VITALS: BP 163/86; PULSE 73; RESP 20; O2SAT 96
[2025-05-17 06:33] LABS: MANUAL DIFF FLAG NO
[2025-05-17 06:49] LABS: Hematocrit 37.1 % (42.0-52.0); Hemoglobin 13.2 g/dl (14.0-18.0); Imm Gran Abs Auto 0.03 X10*3/uL (0.00-0.03); Imm Gran Pct Auto 0.3 % (0.0-0.4); Lymphocytes Absolute Auto 1.7 X10*3/uL (1.2-4.9); Mean Corpuscular HGB Conc 35.6 g/dl (31.0-36.0); Mean Corpuscular Hemoglobin 36.5 pg (27.0-33.0); Mean Corpuscular Volume 102.5 fL (80.0-98.0); NRBC Abs Auto 0.000 X10*3/uL (0.0-0.012); NRBC Pct Auto 0.0 /100WBC (0.0-0.2); Red Blood Count 3.62 X10*6/uL (4.60-5.80); White Blood Count 10.7 X10*3/uL (4.8-10.8)
[2025-05-17 06:50] LABS: Anion Gap 12 (12-20); Blood Urea Nitrogen 8 mg/dL (9-16); Calcium 7.8 mg/dL (8.4-10.2); Carbon Dioxide 32 mmol/L (22-29); Chloride 100 mmol/L (96-108); Creatinine Clr Calc Pharmacy 87.6; Estimated Glomerular Filt Rate > 60; Potassium 3.6 mmol/L (3.3-5.1); Sodium 140 mmol/L (135-145)
[2025-05-17 06:59] LABS: Platelet Count 96 X10*3/uL (160-400)
[2025-05-17 10:29] VITALS: BP 167/108; PULSE 65; RESP 16; TEMP 36.7; O2SAT 100
[2025-05-17] MEDS: 0.9 % Sodium Chloride Flush 3 ML SYRINGE IVFLUSH ×3 (10:29→20:20)
--- NOTE | 2025-05-17 10:43 | PC.NURSE ---
continues to rest quietly in room w/ no obvious signs/symptoms of distress. medicated per the MAR w/ prn pain medications. advanced to clear liquid diet, provided with apple juice. no vomiting for >12 hours per patient. call daniels within reach.
--- NOTE | 2025-05-17 14:25 | MHC.CM.PN ---
pt lives with parents he has no ouside services he does seea therap[ist and [psychiatrist he has a ride vianca dc plan home no services
[2025-05-17 14:44] VITALS: BP 166/77; PULSE 63; RESP 18; TEMP 36.2; O2SAT 98
--- NOTE | 2025-05-17 15:20 | HO.PM.IMPN ---
Subjective Subjective Date of Service: 05/17/25 Interval History: Notes improvement since admission with therapies. No acute issues since admit Review of Systems Denies chest pain Denies shortness of breath Admits to nausea vomiting denies diarrhea Denies fever chills Physical Exam Vital Signs: Vital Signs: Last Vital Signs Temp 97.1 F 05/17/25 14:44 Pulse 63 05/17/25 14:44 Resp 18 05/17/25 14:44 BP 166/77 H 05/17/25 14:44 Pulse Ox 98 05/17/25 14:44 O2 Del Method Room Air 05/17/25 14:44 BMI result Body Mass Index 20.9 Const: Other: Awake alert comfortable appearing lying quietly in stretcher Resp: Other: Clear to auscultation bilaterally no rales rhonchi or wheezes Cardio: Other: No S4; positive S1-S2; no S3 murmurs rubs or gallops GI: Other: Soft nontender nondistended normoactive bowel sounds Extrem: Other: No edema bilaterally Objective Data Active Medications Acetaminophen (Acetaminophen 325 Mg Tablet) 650 mg PO Q6H PRN PRN Reason: Pain, Mild 1-3,fever,headache Amlodipine Besylate (Amlodipine Besylate 10 Mg Tablet) 10 mg PO DAILY [facility]; Protocol Last Admin: 05/17/25 11:21 Dose: 10 mg Documented By: JOSE ELIAS Baclofen (Baclofen 10 Mg Tablet) 10 mg PO BID PRN PRN Reason: Muscle Spasm Calcium Carbonate (Calcium Carbonate 750 Mg Tab.Chew) 750 mg PO Q4H PRN PRN Reason: Heartburn Clonazepam (Clonazepam 0.5 Mg Tablet) 0.5 mg PO BEDTIME PRN PRN Reason: Anxiety Clonidine HCl (Clonidine Hcl 0.1 Mg Tablet) 0.1 mg PO DAILY [facility]; Protocol Last Admin: 05/17/25 11:21 Dose: 0.1 mg Documented By: JOSE ELIAS Dextrose (Dextrose 50 % 25 Gm/50 Ml Syringe) 25 gm IVPUSH Q15M PRN; Protocol PRN Reason: per Hypoglycemia Standing Ord. Enoxaparin Sodium (Enoxaparin Sodium 40 Mg/0.4 Ml Syringe) 40 mg SUBCUT Q24H ASHLEIGH Last Admin: 05/16/25 20:45 Dose: 40 mg Documented By: ROLA Glucose (Glucose Gel 15 Gm Gel..Gram.) 15 gm PO Q15M PRN; Protocol PRN Reason: per Hypoglycemia Standing Ord. Insulin Human Lispro (Insulin Lispro 100 Unit/Ml 3 Ml Vial) 0 unit SUBCUT QIDACHS [facility]; Protocol Last Admin: 05/17/25 11:22 Dose: Not Given Documented By: JOSE ELIAS Non-Admin Reason: No Insulin Coverage Lisinopril (Lisinopril 5 Mg Tablet) 5 mg PO DAILY [facility]; Protocol Last Admin: 05/17/25 11:21 Dose: 5 mg Documented By: JOSE ELIAS Magnesium Hydroxide (Milk Of Magnesia 30 Ml Oral.Susp) 30 ml PO DAILY PRN PRN Reason: Constipation Melatonin (Melatonin 3 Mg Tablet) 6 mg PO BEDTIME PRN PRN Reason: Insomnia Morphine Sulfate (Morphine Sulfate 4 Mg/Ml Cartridge) 4 mg IVPUSH Q4H PRN; Protocol PRN Reason: Pain, Severe (Pain Scale 7-10) Last Admin: 05/17/25 14:56 Dose: 4 mg Documented By: CARLOS Ondansetron HCl (Ondansetron Hcl 4 Mg/2 Ml Vial) 4 mg IVPUSH Q8H PRN PRN Reason: Nausea and Vomiting Pantoprazole Sodium (Pantoprazole Sodium 40 Mg/10 Ml Vial) 40 mg IVPUSH DAILY@0630 [facility] Last Admin: 05/17/25 06:08 Dose: 40 mg Documented By: DENI Sodium Chloride (0.9 % Sodium Chloride Flush 3 Ml Syringe) 3 ml IVFLUSH QSHIFT [facility] Last Admin: 05/17/25 14:49 Dose: 3 ml Documented By: CARLOS Labs 05/17/25 06:28 05/17/25 06:28 Labs: Laboratory Results - last 24 hr 05/16/25 05/16/25 05/16/25 10:19 15:02 15:37 MCV MCH MCHC RDW Plt Count MPV Immature Gran % (Auto) Neut % (Auto) Lymph % (Auto) [place] % (Auto) Eos % (Auto) Baso % (Auto) Lymph # (Auto) [place] # (Auto) Eos # (Auto) Baso # (Auto) Abs Immat Gran (auto) Absolute Neuts (auto) Absolute Nucleated RBC Nucleated RBC % (auto) Anion Gap 13 Estim Creat Clear Calc 71.4 Estimated GFR > 60 POC Glucose 70 Random Glucose 82 Calcium 8.1 L D Total Bilirubin 1.1 H AST 118 H ALT 82 H Alkaline Phosphatase 177 H Total Creatine Kinase 94 Total Protein 6.3 L Albumin 4.0 Urine Color Urine Appearance Urine pH Ur Specific Mode Urine Protein Urine Glucose (UA) Urine Ketones Urine Blood Urine Nitrite Ur Leukocyte Esterase Urine RBC Urine WBC Ur Squamous Epith Cells Urine Bacteria Hyaline Casts Urine Opiates Screen Ur Buprenorphine Scrn Ur Oxycodone Screen Urine Methadone Screen Urine Fentanyl Screen Ur Barbiturates Screen Ur Phencyclidine Scrn Ur Amphetamines Screen U Benzodiazepines Scrn Urine Cocaine Screen U Marijuana (THC) Screen 05/16/25 05/16/25 05/16/25 18:21 20:29 20:34 MCV MCH MCHC RDW Plt Count MPV Immature Gran % (Auto) Neut % (Auto) Lymph % (Auto) [place] % (Auto) Eos % (Auto) Baso % (Auto) Lymph # (Auto) [place] # (Auto) Eos # (Auto) Baso # (Auto) Abs Immat Gran (auto) Absolute Neuts (auto) Absolute Nucleated RBC Nucleated RBC % (auto) Anion Gap Estim Creat Clear Calc Estimated GFR POC Glucose 214 H 223 H Random Glucose Calcium Total Bilirubin AST ALT Alkaline Phosphatase Total Creatine Kinase Total Protein Albumin Urine Color Yellow Urine Appearance Clear Urine pH >= 9.0 Ur Specific Mode >= 1.030 H Urine Protein 100 (2+) H Urine Glucose (UA) Negative Urine Ketones Trace Urine Blood Small (1+) H Urine Nitrite Negative Ur Leukocyte Esterase Negative Urine RBC >20 H Urine WBC 0-5 Ur Squamous Epith Cells 0-2 Urine Bacteria None Seen Hyaline Casts 0-2 Urine Opiates Screen Ur Buprenorphine Scrn Ur Oxycodone Screen Urine Methadone Screen Urine Fentanyl Screen Ur Barbiturates Screen Ur Phencyclidine Scrn Ur Amphetamines Screen U Benzodiazepines Scrn Urine Cocaine Screen U Marijuana (THC) Screen 05/16/25 05/17/25 23:32 06:28 MCV 102.5 H MCH 36.5 H MCHC 35.6 RDW 12.9 Plt Count 96 L D MPV 10.6 Immature Gran % (Auto) 0.3 Neut % (Auto) 72.8 Lymph % (Auto) 16.2 L King[place]isher % (Auto) 10.1 Eos % (Auto) 0.5 Baso % (Auto) 0.1 Lymph # (Auto) 1.7 [place] # (Auto) 1.1 Eos # (Auto) 0.1 Baso # (Auto) 0.0 Abs Immat Gran (auto) 0.03 Absolute Neuts (auto) 7.8 Absolute Nucleated RBC 0.000 Nucleated RBC % (auto) 0.0 Anion Gap 12 Estim Creat Clear Calc 87.6 Estimated GFR > 60 POC Glucose Random Glucose 134 H Calcium 7.8 L Total Bilirubin AST ALT Alkaline Phosphatase Total Creatine Kinase Total Protein Albumin Urine Color Urine Appearance Urine pH Ur Specific Mode Urine Protein Urine Glucose (UA) Urine Ketones Urine Blood Urine Nitrite Ur Leukocyte Esterase Urine RBC Urine WBC Ur Squamous Epith Cells Urine Bacteria Hyaline Casts Urine Opiates Screen POSITIVE H Ur Buprenorphine Scrn Not Detected Ur Oxycodone Screen Not Detected Urine Methadone Screen Not Detected Urine Fentanyl Screen Not Detected Ur Barbiturates Screen Not Detected Ur Phencyclidine Scrn Not Detected Ur Amphetamines Screen Not Detected U Benzodiazepines Scrn Not Detected Urine Cocaine Screen Not Detected U Marijuana (THC) Screen POSITIVE H Assessment and Plan (1) Cyclical vomiting: Status: Acute (2) Diabetes type 1, uncontrolled: Status: Acute (3) HTN (hypertension): Status: Acute Plan This has a 49-year-old male with pertinent history of type 1 diabetes mellitus, hypertension, polysubstance use disorder, chronic back pain, gastroesophageal reflux disease with history of erosive esophagitis, liver cirrhosis, mood disorder who presents to the emergency department for evaluation of abdominal pain, nausea and vomiting. 1.Intractable nausea and vomiting/Cannabis hyperemesis syndrome -volume repletion -Zofran as needed for nausea -clear liquid diet advance as tolerated 2.Odynophagia/history of esophagitis -IV Protonix -GI consult 3.Hypernatremia/Hypokalemia -responded to volume repletion -follow renals/divalent 4.Type 1 diabetes mellitus -continue patient's home insulin pump -lispro correctional scale to monitor point of cares -adjust as indicated 5.Alcohol use disorder -follow on CIWA scale -no indication for phenobarb protocol at this time 6.Hypertension -acceptable control on current therapies -adjust as indicated Lovenox Full code Requires ongoing hospitalization for volume repletion and IV antiemetics to treat cyclic vomiting Quality Stroke Does the patient have a stroke diagnosis?: No VTE Prior VTE?: No VTE Risk Level:: Medical - moderate - high VTE Device Contraindication: Treatment Not Indicated VTE Drug Contraindication: N/A - Med Ordered
[2025-05-17 16:19] LABS: Glucose, Whole Blood 91 mg/dL (60-115)
--- NOTE | 2025-05-17 16:59 | PC.NURSE ---
Patient's family member came to nurses station asking for an emesis bag and stating that Edu doesn't feel well . Emesis bag provided. Reported this to primary nurse FADIA Carroll administered. Patient reported he felt that nausea was due to pain after ambulating to bathroom, patient not due for pain medications at this time. SCOTTY Carroll notified.
[2025-05-17 18:58] VITALS: BP 131/72; PULSE 68; RESP 18; TEMP 36.9; O2SAT 97
[2025-05-17 20:22] LABS: Glucose, Whole Blood 138 mg/dL (60-115)
[2025-05-18 03:06] VITALS: BP 137/78; PULSE 72; RESP 18; TEMP 36.1; O2SAT 100
[2025-05-18 06:03] LABS: MANUAL DIFF FLAG NO
[2025-05-18 06:24] LABS: Alanine Aminotransferase 48 U/L (0-40); Albumin Level 3.3 g/dL (3.5-5.0); Alkaline Phosphatase 131 U/L (39-117); Anion Gap 12 (12-20); Aspartate Amino Transferase 76 U/L (5-37); Blood Urea Nitrogen 8 mg/dL (9-16); Calcium 8.1 mg/dL (8.4-10.2); Carbon Dioxide 31 mmol/L (22-29); Chloride 98 mmol/L (96-108); Creatinine Clr Calc Pharmacy 93.4; Estimated Glomerular Filt Rate > 60; Potassium 3.4 mmol/L (3.3-5.1); Sodium 138 mmol/L (135-145); Total Protein 5.3 g/dL (6.5-8.0)
[2025-05-18 06:31] LABS: Hematocrit 36.3 % (42.0-52.0); Hemoglobin 12.7 g/dl (14.0-18.0); Imm Gran Abs Auto 0.01 X10*3/uL (0.00-0.03); Imm Gran Pct Auto 0.2 % (0.0-0.4); Lymphocytes Absolute Auto 1.3 X10*3/uL (1.2-4.9); Mean Corpuscular HGB Conc 35.0 g/dl (31.0-36.0); Mean Corpuscular Hemoglobin 36.0 pg (27.0-33.0); Mean Corpuscular Volume 102.8 fL (80.0-98.0); NRBC Abs Auto 0.000 X10*3/uL (0.0-0.012); NRBC Pct Auto 0.0 /100WBC (0.0-0.2); Red Blood Count 3.53 X10*6/uL (4.60-5.80); White Blood Count 6.1 X10*3/uL (4.8-10.8)
[2025-05-18 06:34] LABS: Platelet Count 91 X10*3/uL (160-400)
[2025-05-18 07:23] VITALS: BP 152/72; PULSE 60; RESP 16; TEMP 36.7; O2SAT 97
[2025-05-18 07:30] LABS: Glucose, Whole Blood 113 mg/dL (60-115)
[2025-05-18] MEDS: 0.9 % Sodium Chloride Flush 3 ML SYRINGE IVFLUSH (07:40)
[2025-05-18] MEDS: oxyCODONE HCl Immed Release 5 MG TABLET 10 MG PO (11:15)
[2025-05-18 11:25] LABS: Glucose, Whole Blood 168 mg/dL (60-115)
--- NOTE | 2025-05-18 13:27 | PM.DS ---
DS: Providers Provider Date of Service: 05/18/25 Date of admission: 05/16/25 18:11 Date of discharge: 05/18/25 Primary care physician: EVELIA Arana DS: Diagnosis Discharge Diagnosis (1) Cyclical vomiting: Status: Acute (2) Diabetes type 1, uncontrolled: Status: Acute (3) HTN (hypertension): Status: Acute DS: Summary Hospital Course Hospital Course: 49-year-old male with pertinent history of type 1 diabetes mellitus, hypertension, polysubstance use disorder, chronic back pain, gastroesophageal reflux disease with history of erosive esophagitis, liver cirrhosis, mood disorder who presents to the emergency department for evaluation of abdominal pain, nausea and vomiting. Patient states his symptoms started 1 day prior to presentation. He started having back spasms for which he sees pain management outpatient. Subsequently patient had multiple episodes of nausea and nonbloody emesis. States he had mood than 40 episodes of vomiting overnight. Also complains of generalized abdominal discomfort which is constant and without any relieving factors. States he had 2 episodes of loose stools, nonbloody. Unable to tolerate p.o. intake as he also complains of odynophagia with any p.o. intake. Admits symptoms of gastroesophageal reflux disease. Patient states he smokes marijuana every day and he last smoked 2 days prior to presentation. No fever, chills, chest pain, palpitations, shortness of breath, changes in urinary habits. Hospital COurse Patient found to be hypernatremic and hypokalemic upon admission and responded to volume issues. Divalent normalized. Gradually his diet was advanced down the day of discharge he is taught reading of full diet in his anxious for discharge. He is medically acceptable for same and can follow up with his PCP next available Time Attestation Discharge Coordination Time (in mins): 35 Quality: Safe Use of Opioids Does Pt have an Active Cancer Diagnosis on the Problem List?: No Quality: Stroke Does the patient have a stroke diagnosis?: No Physical Exam Vital Signs: Vital Signs: Last Vital Signs Temp 98.1 F 05/18/25 07:23 Pulse 60 05/18/25 07:23 Resp 16 05/18/25 07:23 BP 152/72 H 05/18/25 07:23 Pulse Ox 97 05/18/25 07:23 O2 Del Method Room Air 05/18/25 07:23 BMI result Body Mass Index 20.9 Const: Other: Awake alert comfortable appearing lying quietly in stretcher Resp: Other: Clear to auscultation bilaterally no rales rhonchi or wheezes Cardio: Other: No S4; positive S1-S2; no S3 murmurs rubs or gallops GI: Other: Soft nontender nondistended normoactive bowel sounds Extrem: Other: No edema bilaterally DS: Data Data Completed and Pending Completed studies during hospitalization [Text1]: Procedures Detoxification Services for Substance Abuse Treatment (02/12/25) Excision of Stomach, Pylorus, Via Natural or Artificial Opening Endoscopic, Diagnostic (02/02/24) Labs on day of discharge: Laboratory Results - last 24 hr 05/17/25 05/17/25 05/18/25 16:16 20:18 05:30 WBC 6.1 RBC 3.53 L Hgb 12.7 L Hct 36.3 L MCV 102.8 H MCH 36.0 H MCHC 35.0 RDW 12.9 Plt Count 91 L MPV 11.1 Immature Gran % (Auto) 0.2 Neut % (Auto) 64.9 Lymph % (Auto) 22.1 Dickenson % (Auto) 11.7 H Eos % (Auto) 0.8 Baso % (Auto) 0.3 Lymph # (Auto) 1.3 Dickenson # (Auto) 0.7 Eos # (Auto) 0.1 Baso # (Auto) 0.0 Abs Immat Gran (auto) 0.01 Absolute Neuts (auto) 3.9 Absolute Nucleated RBC 0.000 Nucleated RBC % (auto) 0.0 Sodium 138 Potassium 3.4 Chloride 98 Carbon Dioxide 31 H Anion Gap 12 BUN 8 L Creatinine 0.91 Estim Creat Clear Calc 93.4 Estimated GFR > 60 POC Glucose 91 138 H Fasting Glucose 134 H Calcium 8.1 L Total Bilirubin 1.2 H AST 76 H ALT 48 H Alkaline Phosphatase 131 H Total Protein 5.3 L Albumin 3.3 L 05/18/25 05/18/25 07:26 11:18 WBC RBC Hgb Hct MCV MCH MCHC RDW Plt Count MPV Immature Gran % (Auto) Neut % (Auto) Lymph % (Auto) Dickenson % (Auto) Eos % (Auto) Baso % (Auto) Lymph # (Auto) Dickenson # (Auto) Eos # (Auto) Baso # (Auto) Abs Immat Gran (auto) Absolute Neuts (auto) Absolute Nucleated RBC Nucleated RBC % (auto) Sodium Potassium Chloride Carbon Dioxide Anion Gap BUN Creatinine Estim Creat Clear Calc Estimated GFR POC Glucose 113 168 H Fasting Glucose Calcium Total Bilirubin AST ALT Alkaline Phosphatase Total Protein Albumin Discharge Plan Discharge Anticipated Discharge Date/Time: 05/18/25 13:25 Patient Disposition: Home, Self-Care Discharge Diagnosis: Cyclic vomiting Referrals: Niru Crawford PA [Primary Care Provider, Internal Medicine] - 1 Week Discharge Medications: Continued (DME) insulin syringe-needle U-100 [BD Insulin Syringe] 0.3 mL 29 gauge x 1/2 syringe See Rx Instructions .ROUTE .MEDSUPPLY Qty: 150 5RF Rx Instructions: 4 times a day (DME) pen needle, diabetic [BD Felisha 2nd Gen Pen Needle] 32 gauge x 5/32 needle See Rx Instructions .ROUTE .MEDSUPPLY Qty: 50 4RF Rx Instructions: once a day (DME) 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 meter [FreeStyle Lite Meter] Kit See Rx Instructions .Route Qty: 1 0RF Rx Instructions: As directed-checks 4 X/day insulin lispro 100 unit/mL solution See Rx Instructions .ROUTE .COMPLEX Qty: 30 11RF Rx Instructions: UP TO 100 UNITS DAILY VIA INSULIN PUMP (TANDEM TSLIM x2) (DME) Tandem Mobi System Misc MISCELLANEOUS Rx Instructions: UP TO 100 UNITS INSULIN LISPRO DAILY VIA PUMP meloxicam 7.5 mg tablet 7.5 mg PO DAILY Qty: 20 0RF thiamine HCl (vitamin B1) 100 mg tablet 100 mg PO DAILY lidocaine 5 % adhesive patch,medicated 1 patch topical DAILY folic acid 1 mg tablet 1 mg PO DAILY lisinopril 5 mg tablet 5 mg PO DAILY omeprazole 40 mg capsule,delayed release(DR/EC) 40 mg PO DAILY clonidine HCl 0.1 mg tablet 0.1 mg PO DAILY cholecalciferol (vitamin D3) 25 mcg (1,000 unit) tablet 25 mcg PO DAILY amlodipine 10 mg Tablet 10 mg PO DAILY Qty: 90 0RF Protocol: Hold for SBP< HOLD for SBP < : 90 lidocaine [Lidoderm] 5 % adhesive patch,medicated 1 patch topical DAILY MDD remove after 12 hours PRN (Reason: pain) Qty: 30 0RF Rx Instructions: leave on most painful area for up to 12 hrs baclofen 10 mg tablet 10 mg PO BID PRN (Reason: muscle spasm) Qty: 20 0RF Rx Instructions: Do not take this medication before driving or going to work, it may make you feel drowsy. clonazepam 0.5 mg tablet 0.5 mg PO BEDTIME PRN (Reason: Anxiety) Rx Instructions: AT BEDTIME (DME) FreeStyle Lite Strips Strip See Rx Instructions .ROUTE .MEDSUPPLY Qty: 300 11RF Rx Instructions: 4x daily (DME) lancets [FreeStyle Lancets] 28 gauge misc See Rx Instructions .Route Qty: 100 5RF Rx Instructions: As directed 4 X/day (DME) Ketone Urine Test Strip See Rx Instructions .ROUTE .MEDSUPPLY Qty: 25 1RF Rx Instructions: prn tid for nausea, vomiting, illness, glucose remaining over 250 (DME) Dexcom G6 [employer] Misc See Rx Instructions .Route Rx Instructions: As directed Discharge Orders: Discharge Order (Routine); Ordered 05/18/25 Ordered By: Kyrie Mcnair Diet: Advance to usual diet Activity on Discharge: As tolerated Stand Alone Forms: Patient Portal Discharge page Print Language: Lithuanian Care Plan Goals: Resume all medications as taken prior to hospitalization Health Concerns: Continue diet as tolerated Plan of Treatment: Follow up with your PCP next available Assessment: See discharge summary
== END 2025-05-18 13:41 | disposition home or self-care (01) | DRG 249 ==
LOC: HO.ED 11:11 → HO.EDOVER 18:28 → HO.S3 05-17 13:55
PROVIDERS: Physician Assistant Medical; Student in an Organized Health Care Education/Training Program; Admitting Provider Internal Medicine; Emergency Provider Emergency Medicine Emergency Medical Services; Visit Provider Hospitalist
DX: R11.2 Nausea with vomiting, unspecified (principal); E87.1 Hypo-osmolality and hyponatremia; K74.60 Unspecified cirrhosis of liver; E10.9 Type 1 diabetes mellitus without complications; E86.1 Hypovolemia; F39 Unspecified mood [affective] disorder; R13.10 Dysphagia, unspecified; E87.6 Hypokalemia; F17.210 Nicotine dependence, cigarettes, uncomplicated; Z96.41 Presence of insulin pump (external) (internal); Z71.6 Tobacco abuse counseling; F12.90 Cannabis use, unspecified, uncomplicated; I10 Essential (primary) hypertension; M54.9 Dorsalgia, unspecified; G89.29 Other chronic pain; F10.90 Alcohol use, unspecified, uncomplicated; Z20.822 Contact with and (suspected) exposure to COVID-19; Z79.4 Long term (current) use of insulin; Z79.899 Other long term (current) drug therapy
CPT/HCPCS: 36415; 74177; 80048; 80053; 80076; 80307; 81001; 82010; 82550; 82947; 83690; 83735; 84484; 85025; 87637; 93005; 99285; J1171; J1200; J1650; J1790; J2270; J2405; J2470; J2765; J3480; Q9967

== ENCOUNTER → 2025-05-16 10:03 | Outpatient (BNV) | payer MEDICAID, SELFPAY | PROVIDERS: Admitting Provider Internal Medicine; Emergency Provider Emergency Medicine Emergency Medical Services; Visit Provider Internal Medicine | DX: I45.10 Unspecified right bundle-branch block (principal); I51.7 Cardiomegaly; R00.0 Tachycardia, unspecified | CPT/HCPCS: 93010 ==

== ENCOUNTER → 2025-05-16 11:22 | Outpatient (BNV) | payer MEDICAID, SELFPAY | PROVIDERS: Emergency Provider Emergency Medicine Emergency Medical Services; Visit Provider Radiology Diagnostic Radiology | DX: R10.9 Unspecified abdominal pain (principal) | CPT/HCPCS: 74177 ==

== ENCOUNTER → 2025-05-16 18:11 | Outpatient (BNV) | payer MEDICAID, SELFPAY | PROVIDERS: Admitting Provider Internal Medicine; Emergency Provider Emergency Medicine Emergency Medical Services; Visit Provider Student in an Organized Health Care Education/Training Program | DX: R11.15 Cyclical vomiting syndrome unrelated to migraine (principal); E10.65 Type 1 diabetes mellitus with hyperglycemia; I10 Essential (primary) hypertension | CPT/HCPCS: 99223; 99232; 99239 ==

== ENCOUNTER 2025-06-07 09:55 | Outpatient (AMB) | payer MEDICAID, SELFPAY ==
--- OUTSIDE RECORDS SUMMARY | 2024-02-04 09:30 | XMS_ITS ---
Author Organization [facility] Address [address] [place] [phone] Care Team Providers Care Camp Coordinator Name Role Phone JESSE HASSAN PA-C Primary Care Provider UnaHank Melchor [phone] Problems Problem Type SNOMED Code ICD Code Onset Dates Problem Status W/U Status Risk Notes Problem Gastritis, chronic (K29.50) Active confirmed Encounters Encounter Location Date Provider Diagnosis [facility] [place] [address] [place] [phone] 02/04/2024 Hank Stanford Plan Of Treatment No Information Progress Notes * GRAHAM MCINTOSH TDOB: 5 (49 yo M)Acc No.[id number]:02/04/2024 EGD/MAC Patient: Gypsy GRAHAM LAM Provider: Gypsy Stanford MD :1975 A ge:48 Y S ex:Male Date:02/04/2024 Address:[address] [place], [place] [phone] Pcp:JESSE HASSAN PA-C Subjective: * Chief Complaints: [...] 0 02/04/2024 Generated for Rahel lieberman/Chema/eTransmitting on: 06/07/2025 10:37 AM EDT
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
[2025-06-07 10:20] VITALS: BP 154/73; PULSE 75; RESP 16; O2SAT 98; BMI 21.5
--- OUTSIDE RECORDS SUMMARY | 2025-06-07 10:37 | XMS_ITS | Clinical Summary ---
Author Organization [facility], Address [address] [place] [address] [place] [address] Phone Care Team Providers Care Client Onboarding Analyst Name Role Phone Niru Crawford Primary Care Provider [phone] Allergies Active Allergy Reactions Criticality Noted Date [...] Visit [facility], [address] [place] [address] Juan Yee MD [address] [place] [address] Health Maintenance Due Date Last Done [...] PCV20 or PCV21) 2024 09/22/2019, 09/04/2010, 08/18/2008 Influenza Vaccine (#1) 2025 , 07/29/2023, 08/09/2022, Additional history exists Pneumococcal Vaccine: Peds ( 0 to 5 Years) and At-Risk Patients (6 to 49 Years) Discontinued 09/22/2019, 09/04/2010, 08/18/2008 Insurance [facility] Plan Care Teams Client Onboarding Analyst Relationship Specialty Start Date End Date Niru Crawford [address] [place] [address] PCP - General 11/08/24
--- OUTSIDE RECORDS SUMMARY | 2025-06-07 10:37 | XMS_ITS | Encounter Summary ---
Author Organization [facility] Address [address] [facility] [address] [place] [address] Phone Care Team Providers Care Blanket Winder Helper Name Role Phone Niru Crawford PA-C Primary Care Provider + [phone] Encounter Details Date Type Department Care Team (Late st Contact Info) Description 04/19/2025 Procedure Pass [facility], Ct Scan - [address] [address] Social History Tobacco Use Types Packs/Day Years Used Date Smoking Tobacco: Every Day Cigarettes 0.3 31.7 Started: 10/12/1987; Last attempted to quit: 10/12/2017 [...] Care Team (Late st Contact Info) Description 06/29/2025 8:40 AM EDT Office Visit [facility] Internal Medicine [address] [place] [address] Niru Crawford PA-C [address] [place] [address] [email or web address] documented as of this encounter Visit Diagnoses Not on filedocumented in this encounter Additional Health Concerns Assessment Noted Time PHQ-9 Depression Total Score: 6 02/09/20 18 11:02 AM EDT PHQ-2 Depression Total Score: 0 01/07/20 25 9:40 AM EDT documented as of this encounter Care Teams Blanket Winder Helper Relationship Specialty Start Date End Date Niru Crawford PA-C [address] [place] [address] [email or web address] PCP - General Physician Rocket Motor Tester 10/18/24 documented as of this encounter Additional Source Comments The information contained in this document represents components of the legal health record. It is not the complete legal health record.[facility]
--- OUTSIDE RECORDS SUMMARY | 2025-06-07 10:37 | XMS_ITS | Encounter Summary ---
Author Organization [facility] Address [address] [facility] [address] [place] [address] Phone Care Team Providers Care Open Claims Representative Name Role Phone Niru Crawford PA-C Primary Care Provider + [phone] Reason for Visit * Reason Onset Date Comments Follow-up 04/06/2025 ED visit Encounter Details Date Type Department Care Team ([facility] st Contact Info) Description 04/06/2025 Telephone [facility] [address] [place] [address] [email or web address] Follow-up (ED visit ) Social History Tobacco Use Types Packs/Day Years [...] as of this encounter Progress Notes * Irena Barger - 04/06/2025 3:48 PM EDT Pt called pt declined F/U on 04/07/2025 booked 04/19/2025 Central Support Water Mangle Tender (Please do not reply to this user; this inbox is not monitored.) Thank you. * Pat Seals - 04/06/2025 3:18 PM EDT Left VM for patient to schedule ER follow up Requested [facility] Note fax [phone]/confirmation received * Rafia Negrete - 04/06/2025 2:55 PM EDT [facility] PEN Top Smart Phrases: Emergency Department (ED, ER) Appointment Booking Telephone Encounter 1.Appointment scheduled within 5 calendar days:YES/NO: no? 2.Virtual or in-person appointment: N/A 3.Information related to the patient ER/ED visit: A. Facility Name:[facility] B. Date of ED Visit: Date (mm/dd/yy): 04/05/25? C. Reason for visit (Diagnosis/Symptoms):? chronic back pain, vomiting , nausea 4.Is the record of the Emergency Department visit in the chart: YES/NO: no? a. IF NOT, patient was instructed to have records faxed to office, and to bring in a hard copy during the appointment. documented in this encounter Plan of Treatment Upcoming Encounters Date Type Department Care Team (Late st Contact Info) Description 06/29/2025 8:40 AM EDT Office Visit [facility] Internal Medicine [address] [place] [address] Niru Crawford PA-C [address] [place] [address] [email or web address] documented as of this encounter Visit Diagnoses Not on filedocumented in this encounter Additional Health Concerns Assessment Noted Time PHQ-9 Depression Total Score: 6 02/09/20 18 11:02 AM EDT PHQ-2 Depression Total Score: 0 01/07/20 25 9:40 AM EDT documented as of this encounter Care Teams Open Claims Representative Relationship Specialty Start Date End Date Niru Crawford PA-C [address] [place] [address] PCP - General Physician Neon Light Installer 10/18/24 documented as of this encounter Additional Source Comments The information contained in this document represents components of the legal health record. It is not the complete legal health record.[facility]
--- OUTSIDE RECORDS SUMMARY | 2025-06-07 10:37 | XMS_ITS | Clinical Summary ---
Author Organization [facility] Address [address] [address] Phone Care Team Providers Care Finger Waver Name Role Phone Niru Crawford PA-C Primary Care Provider [phone] Allergies Active Allergy Reactions Criticality Noted Date [...] daily. 30 tablet 2 04/30/20 23 Active mgtpawlv-qbn-cftf fum-folic ac 7.5 mg iron-400 mcg Tab [...] day. 120 capsule 11 02/23/20 25 Active baclofen (LIORESAL) 10 MG tabletIndications :Muscle spasm,Lumbar radiculopathy Take 1 tablet (10 mg total) by mouth 3 (three) times a day. 30 tablet 2 04/19/20 25 Active lisinopril (PRINIVIL,ZESTRIL ) 5 MG tabletIndications :Essential hypertension Take 1 tablet (5 mg total) by mouth daily. 90 tablet 04/19/20 25 Active meloxicam (MOBIC) 7.5 MG tabletIndications :Muscle spasm Take 1 tablet (7.5 mg total) by mouth daily. 30 tablet 2 05/26/20 25 Active clonazePAM (KLONOPIN) 0.5 MG tabletIndications :Anxiety Take 1 tablet (0.5 mg total) by mouth once as needed for anxiety. 15 tablet 05/26/20 25 Active clonazePAM (KLONOPIN) 0.5 MG tabletIndications :Anxiety Take 1 tablet (0.5 mg total) by mouth once as needed for anxiety. 15 tablet 04/06/20 25 025 Discontin ued(Reord er) meloxicam (MOBIC) 7.5 MG tablet Take 7.5 mg by mouth daily. 025 Discontin ued(Reord er) Active Problems Problem Noted Date Diagnosed Date Other cirrhosis of liver 01/06/2025 Assessment & Plan (01/06/2025 10:47 AM EDT): He is currently under the care of a dough catcher. He has abstained from alcohol consumption and [...] back pain. He is also following with [facility] pain management clinic for which they have [...] out any spinal issues. A referral to [facility] will be made. If the [...] Routine general medical exam ination at a [facility] facility 10/18/2024 Assessment & Plan (10/18/2024 2:12 [...] out any spinal issues. A referral to [facility] will be made. If the [...] Plan (04/19/2025 3:04 PM EDT): Following with [facility] endocrinology, well-managed with most recent A1c of [...] follow with endocrinology and diabetes center at [place], upcoming appointment tomorrow. He uses a Dexcom monitor for blood sugar monitoring and has an insulin pump. He has never had a diabetic eye exam, [facility] referral placed. He has never had a [...] Encounters Date Type Department Care Team Description 05/25/2025 10:28 AM EDT - 05/25/2025 11:59 PM EDT Hospital Encounter [facility] - [address] [place], [place] [address] Niru Crawford PA-C Discharge Disposition: Home or Self Care 05/25/2025 Telephone [facility] Internal Medicine [address] [facility] [place] [address] Niru Crawford PA-C Results 05/16/2025 Orders Only [facility] Internal [facility] [address] [facility] [place] [address] Otto Jiménez MD 05/10/2025 Orders Only [facility] Internal [facility] [address] [place] [address] Otto Jiménez MD 05/05/2025 Telephone [facility] Internal Medicine [address] [place] [address] Niru Crawford PA-C Results 04/29/2025 9:41 AM EDT - 04/29/2025 11:59 PM EDT Hospital Encounter [facility], Ct Scan - [address] [address] Niru Crawford PA-C Discharge Disposition: Home or Self Care 04/27/2025 10:19 AM EDT - 04/27/2025 11:59 PM EDT Hospital Encounter [facility] [address] [facility] [place] [address] Niru Crawford PA-C Discharge Disposition: Home or Self Care 04/27/2025 Telephone [facility] Internal Medicine [address] [place] [address] Niru Crawford PA-C Results 04/24/2025 Telephone [facility] Internal Medicine [address] [place] [address] Niru Crawford PA-C Request For Order(s) 04/19/2025 2:00 PM EDT Office Visit [facility] Internal Medicine [address] [place] [address] Niru Crawford PA-C Type 1 diabetes mellitus without complication (Primary Dx); Muscle spasm; Lumbar radiculopathy; Essential hypertension; 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 04/19/2025 Procedure Pass [facility], Ct Scan - [facility] [address] [place] [address] 04/19/2025 Telephone [facility] Internal Medicine [address] [facility] [place] [address] Niru Crawford PA-C Question on imaging 04/07/2025 Telephone [facility] Internal [facility] [address] [facility] [place] [address] Niru Crawford PA-C Pain Management Referral 04/06/2025 Refill [facility] [address] [place], [place] [phone] Rafia Negrete Medication Refill 04/06/2025 Telephone [facility] [address] [place], [place] [phone] Rafia Negrete Follow-up (ED visit ) 03/20/2025 Orders Only [facility] Internal Medicine [address] [facility] [place] [address] Otto Jiménez MD 03/20/2025 Telephone [facility] Internal Medicine [address] [facility] [place] [address] Niru Crawford PA-C Follow-up 03/09/2025 Orders Only [facility] Internal Medicine [address] [place] [address] ProviderOtto MD from Last 3 Months Immunizations Immunization Administration Dates Next Due INFLUENZA, SPLIT VIRUS, TRIVALENT PF 07/20/2024, 09/18/2016,07/27/2015 INFLUENZA, SPLIT VIRUS, TRIV ALENT W/ PRESERVATIVE IM 07/25/2014,08/04/2012,06/27/2011 Influenza Quadrivalent MDCK Preservative Free IM 08/09/2022,09/19/2020 Influenza Quadrivalent Prese rvative Free IM 07/29/2023,08/23/2021,09/19/2020,09/30,07/15/2018,09/09/2017 Influenza Trivalent MDCK Pre servative Free IM 09/01/2013 Influenza, Unspecified Formulation 09/04/2010, Pneumococcal conjugate PCV13 [...] Description 06/29/2025 8:40 AM EDT Office Visit [facility] Internal Medicine [address] [place] [address] Niru Crawford PA-C [address] [place] [address] Health Maintenance Due Date Last Done Comments HEPATITIS A VACCINES (1 of 2 - Risk 2-dose series) 1993 COLOGUARD 2019 FIT TEST 2019 FOBT 2019 SIGMOIDOSCOPY 2019 VIRTUAL COLONOSCOPY 2019 DIABETIC EYE EXAM 11/14/2023 11/14/2022, , 06/18/2016 COVID-19 VACCINE (4 - season) 2024 08/09/2022, 02/16/2021, 01/27/2021 PNEUMOCOCCAL VACCINES (50+ years) (3 of 3 - PCV20 or PCV21) 2024 09/22/2019, 09/04/2010, 08/18/2008 ZOSTER VACCINES (1 of 2) 2024 INFLUENZA VACCINE (#1) 2025 , 07/29/2023, 08/09/2022, Additional history exists BLOOD PRESSURE 10/20/2025 04/19/2025 HEMOGLOBIN A1C 10/28/2025 [...] Procedure Name Priority Date/Time Associated Diagnosis Comments US KIDNEYS Routine 05/25/2025 11:14 AM EDT Renal cyst OUTSIDE CT ABD/PELVIS REPORT ONLY Routine 05/16/2025 2:48 PM EDT OUTSIDE IMAGING Routine 05/09/2025 8:03 AM EDT [...] EDT Routine general medical examination at a main campus medical center care facility LIPID PANEL Routine 04/27/2025 10:19 [...] REPORT ONLY Routine 03/08/2025 7:16 AM EDT HM COLONOSCOPY FOR RESULT ENTRY ONLY Routine 03/16/2023 HM DIABETES EYE EXAM FOR RESULT ENTRY ONLY Routine 11/14/2022 HEPATITIS C ANTIBODY, QUALITATIVE Routine 09/09/2021 10:25 AM EST Liver function abnormality from Last 3 Months or Most Recently Relevant to Health Maintenance Results * US Kidneys (05/25/2025 11:14 AM EDT) Anatomical Region Laterality Modality Abdomen, Kidney Ultrasound 05/25/2025 12:4 2 PM EDT Impressions 05/25/2025 12:45 PM EDT 1. Normal right kidney. 2. 1.6 x 1.7 cm left peripelvic cyst. Narrative 05/25/2025 12:45 PM EDT US KIDNEYS Referring clinician's provided indication for this examination in [facility]: Renal cyst TECHNIQUE: Kidney Ultrasound. COMPARISON: CT of the abdomen and pelvis April 2025 and abdominal ultrasound August 2021 FINDINGS: Right Kidney: Size: 11.9 cm Normal. No stones or hydronephrosis. Left Kidney: Size: 12.6 cm 1.6 x 1.7 x 1.3 cm peripelvic cyst in the lower pole. No stones or hydronephrosis. Echogenic liver. Procedure Note Kendra Cochran MD - 05/25/2025 US KIDNEYS Referring clinician's provided indication for this examination in [facility]:Renal cyst TECHNIQUE: Kidney Ultrasound. COMPARISON: CT of the abdomen and pelvis April 2025 and abdominalultrasound August 2021 FINDINGS: Right Kidney: Size: 11.9 cm Normal. No stones or hydronephrosis. Left Kidney: Size: 12.6 cm 1.6 x 1.7 x 1.3 cm peripelvic cyst in the lower pole. No stones orhydronephrosis. Echogenic liver. IMPRESSION: 1. Normal right kidney. 2. 1.6 x 1.7 cm left peripelvic cyst. [facility] US RENAL Final Result * Outside CT Abd/pelvis Report Only (05/16/2025 2:48 PM EDT) Historical Provider IMG CT ABD/PELVIS Final R esult * Outside Imaging Report Only (05/09/2025 8:03 AM EDT) Historical Provider MD IMG XR CHEST Final Res ult * Outside Imaging Report Only (05/09/2025 8:01 AM EDT) Historical Provider MD IMG XR CHEST Final Res ult * [...] URINE MICROALBUMIN 2.6(H) 0 - 2.3 mg/dL [facility] URINE CREATININE 115 mg/dL [facility] MICROALB/CRE RATIO 22.6(H) 0 - 20 mg/g Cre [facility] Urine (Urine) 04/27/2025 10: 47 AM EDT 04/27/2025 10:51 AM EDT Niru Crawford PA-C URINE ORDERABLES Final Resul t [address] [address] * (ABNORMAL) Comprehensive metabolic panel (04/27/2025 10:19 AM EDT) SODIUM 142 133 - 146 mmol/L [facility] POTASSIUM 4.2 3.3 - 5.1 mmol/L [facility] CHLORIDE 105 96 - 108 mmol/L [facility] CO2 25 21 - 35 mmol/L [facility] BUN 12 6 - 19 mg/dL [facility] CREATININE 1.00 0.5 - 1.5 mg/dL [facility] GLUCOSE 85 70 - 99 mg/dL [facility] ALBUMIN 4.2 3.9 - 4.8 g/dL [facility] TOTAL PROTEIN 6.8 6.5 - 8.0 g/dL [facility] CALCIUM 9.2 8.4 - 10.3 mg/dL [facility] ALKALINE PHOSPHATASE 243(H) 39 - 117 U/L [facility] TOTAL BILIRUBIN 0.7 0.0 - 1.2 mg/dL [facility] AST 215(H) 0 - 37 U/L [facility] ALT 74(H) 0 - 40 U/L [facility] GLOBULIN 2.6 1 - 4.8 g/dL [facility] EGFR 92 >59 mL/min/1.7 3m2 [facility] Comment:Estimated glomerular filtration rate calculated using the CKD-EPI refit equation. ANION GAP 16 10 - 20 mmol/L [facility] Blood 04/27/2025 10:1 9 AM EDT 04/27/2025 10:35 AM EDT us Niru Crawford PA-C LAB BLOOD ORDERABLES Final R esult [address] [address] * TSH with reflex (04/27/2025 10:19 AM EDT) TSH 1.45 0.27 - 4.20 uIU/mL [facility] Blood 04/27/2025 10:1 9 AM EDT 04/27/2025 10:35 AM EDT [facility] PA-C LAB BLOOD ORDERABLES Final R esult [address] [address] * Hemoglobin A1c (04/27/2025 10:19 AM EDT) HEMOGLOBIN A1C 5.5 4.3 - 5.8 % [facility] Blood 04/27/2025 10:1 9 AM EDT 04/27/2025 10:35 AM EDT [facility]- LAB BLOOD ORDERABLES Final R esult Performing Organization Address City/[facility]/ZIP Co de Phone Number [address] [address] * (ABNORMAL) Lipid panel (04/27/2025 10:19 AM EDT) HDL 75 mg/dL [facility] Comment: Interpretation <40 mg/dL: Low HDL cholesterol (major risk factor for CHD) Greater than or equal to 60 mg/dL: High HDL cholesterol ( negative risk factor for CHD) HDL - cholesterol is affected by a number of factors, e.g. smoking, excerise, hormones, sex and age. CHOLESTEROL 130 0 - 240 mg/dL [facility] TRIGLYCERIDES 214(H) 30 - 160 mg/dL [facility] LDL 12(L) 50 - 129 mg/dL [facility] Comment: LDL levels in terms of risk for coronary heart disease: <100 mg/dL: Optimal 100-129 mg/dL: Near or above optimal 130-159 mg/dL: Borderline high 160-189 mg/dL: High >190 mg/dL: Very High CARDIAC RISK RATIO 1.7(L) 3.4 - 5.0 [facility] Blood 04/27/2025 10:1 9 AM EDT 04/27/2025 10:35 AM EDT Result [facility] Niru Crawford PA-C LAB BLOOD ORDERABLES Final R esult [address] [address] * Outside Lab (03/18/2025 4:44 PM EDT) Result [facility] Historical Provider LAB BLOOD ORDERABLES Edit ed Result - Final * Outside ECG Report Only (03/16/2025 4:41 PM EDT) Only the most recent of3 resultswithin the time period is included. Result [facility] Historical Provider ECG ORDERABLES Edited Re sult - Final * Outside CT Imaging Report Only (03/15/2025 4:44 PM EDT) Result [facility] Historical Provider IMG CT Edited Re sult - Final * Outside CT Imaging Report Only (03/15/2025 4:42 PM EDT) Result [facility] Historical Provider IMG CT Edited Re sult - Final * Outside CT Abd/pelvis Report Only (03/08/2025 7:16 AM EDT) Result [facility] Historical Provider MD KURTZ CT ABD/PELVIS Final R esult * HM COLONOSCOPY FOR RESULT ENTRY ONLY (03/16/2023) Linda Carrasquillo NP HEALTH MAINTENANCE Edited Resul t - Final * HM DIABETES EYE EXAM FOR RESULT ENTRY ONLY (11/14/2022) Result [facility] Linda Carrasquillo NP HEALTH MAINTENANCE Edited Resul t - Final * Hepatitis C antibody, qualitative (09/09/2021 10:25 AM EST) HCV NON-REACTIV E NON-REACTI VE [facility] Blood 09/09/2021 10:2 5 AM EST 09/09/2021 10:27 AM EST us Linda Carrasquillo NP LAB BLOOD ORDERABLES Final Resu lt [facility] [address] [place] [address] from Last 3 Months or Most Recently Relevant to Health Maintenance Insurance [facility] Care Teams Finger Waver Relationship Specialty Start Date End Date Niru Crawford PA-C [address] [place] [address] [email or web address] PCP - General Physician Hospice Community Liaison 10/18/24 Additional Source Comments The information contained in this document represents components of the legal health record. It is not the complete legal health record.[facility]
--- OUTSIDE RECORDS SUMMARY | 2025-06-07 10:37 | XMS_ITS | Encounter Summary ---
Author Organization [facility] Address [address] [facility] [address] [place] [address] Phone Care Team Providers Care Land Surveying Manager Name Role Phone Niru Crawford PA-C Primary Care Provider + [phone] Encounter Details Date Type Department Care Team (Late st Contact Info) Description 05/10/2025 Orders Only [facility] Internal Medicine [address] [place] [address] Provider, MD Otto [address] [place], [place] [id number] Social History Tobacco Use Types Packs/Day Years [...] EDT Office Visit [facility] [facility] Internal Medicine [address] [place] [address] Niru Crawford PA-C [address] [place] [address] [email or web address] documented as of this encounter Procedures Procedure Name Priority Date/Time Associated Diagnosis Comments OUTSIDE IMAGING Routine 05/09/2025 8:03 AM EDT OUTSIDE IMAGING Routine 05/09/2025 8:01 AM EDT documented in this encounter Results * Outside Imaging Report Only (05/09/2025 8:03 AM EDT) us Historical Provider MD KURTZ XR CHEST Final Res ult * Outside Imaging Report Only (05/09/2025 8:01 AM EDT) us Historical Provider MD KURTZ XR CHEST Final Res ult documented in this encounter Visit Diagnoses Not on filedocumented in this encounter Additional Health Concerns Assessment Noted Time PHQ-9 Depression Total Score: 6 02/09/20 18 11:02 AM EDT PHQ-2 Depression Total Score: 0 01/07/20 25 9:40 AM EDT documented as of this encounter Care Teams Land Surveying Manager Relationship Specialty Start Date End Date Niru Crawford PA-C [address] [place] [address] [email or web address] PCP - General Physician Auditor 10/18/24 documented as of this encounter Additional Source Comments The information contained in this document represents components of the legal health record. It is not the complete legal health record.[facility]
--- OUTSIDE RECORDS SUMMARY | 2025-06-07 10:37 | XMS_ITS | Patient Health Record ---
Author Organization [facility] Address [address] [place] [address] Care Team Providers Care Final Finisher Forging Dies Name Role Phone JESSE HASSAN PA-C Primary Care Provider Hank Palomo Unavailable [phone] Allergies Allergen (clinical drug ingredient) Drug/Non Drug Allergy documented on EMR Reaction Allergy Type Onset Date Status hydroxyzine Vistaril Unknown Drug Allergy Activ e quetiapine SEROquel Unknown Drug Allergy Active Reason For Referral No Information Medications Medication [...] 2013; uses medical marijuana from dispensary in [place] for apetitie stimulant, anxiety/depression, and pain relief. Smokes 2 cigs QD Recovering alcoholic--heavy until 2009--reports occ. lapses, but last time was 2014; substance abuse with previous IVDA-none since 2014; uses medical marijuana from dispensary in [place] for apetitie stimulant, anxiety/depression, and pain relief. Smokes 2 cigs QD. Recovering alcoholic--heavy until 2009--reports occ. lapses, but last time was 2014; substance abuse with previous IVDA-none since 2014; uses medical marijuana from dispensary in [place] for apetitie stimulant, anxiety/depression, and pain relief. Smokes 2 cigs QD. Problems Problem Type SNOMED Code ICD Code Onset Dates Problem Status W/U Status Risk Notes Problem 383756783 Colon cancer screening (Z12.11) Active confirmed Problem Diverticular disease of colon (301023938) Diverticulosis of large intestine without perforation or abscess without bleeding (K57.30) Active confirmed Problem 888434483 Elevated liver function tests (R79.89) Active confirmed Problem Gastritis, chronic (K29.50) Active confirmed Problem 56484990 Erosive esophagitis (K22.10) Active confirmed Problem Gastritis (6956325) Gastritis (K29.70) Active confirmed Problem 506055825 Abnormal CT scan , esophagus (R93.3) Active confirmed Problem 824508865 Idiopathic acute pancreatitis without infection or necrosis (K85.00) Active confirmed Problem Gastroesophageal reflux disease with esophagitis (disorder) (532079362) Gastro-esophageal reflux disease with esophagitis, without bleeding (K21.00) Active confirmed Plan Of Treatment Pending Test Test Name [...] Medicaid [address] [place] [phone] [id number] GRAHAM MCINTOSH Self - patient is the insured MEDICAID OF [facility] [address] [place] [phone] [id number] GRAHAM MCINTOSH Self - patient is the insured Medical (General) History Medical History History ICD Code IDDM--has an Insulin pump Denies NC,CVA,Lung disease,renal disease Anxiety/Depression/PTSD Arthritis Substance and alcohol [...]
--- OUTSIDE RECORDS SUMMARY | 2025-06-07 10:37 | XMS_ITS | Encounter Summary ---
Author Organization [facility] Address [address] [place] [address] Phone Care Team Providers Care Base Brander Name Role Phone Niru Crawford Primary Care Provider [phone] Encounter Details Date Type Department Care Team (Late st Contact Info) Description 09/30/2023 Documentation Only [facility] [address] [place] [id number] Linda Carrasquillo NP Social History Tobacco Use [...] Visit [facility] [address] [place] [address] Juan Yee MD [address] [place] [address] [place] [address] documented as of this encounter Visit Diagnoses Not on filedocumented in this encounter Care Teams Base Brander Relationship Specialty Start Date End Date Yvette Niru [address] [place] [address] PCP - General 11/08/24 documented as of this encounter
--- OUTSIDE RECORDS SUMMARY | 2025-06-07 10:38 | XMS_ITS | Encounter Summary ---
Author Organization [facility] Address [address] [facility] [address] [place] [address] Phone Care Team Providers Care Mask Layout Designer Name Role Phone Niru Crawford PA-C Primary Care Provider [phone] Reason for Referral * MRI/CAT Scan - Closed Specialty Diagnoses / Procedures Referred By Karen taylor Referred To Contact Radiology Procedures Outside CT Abd/pelvis Report Only [facility] [address] [place] [address] Phone: tel: fax: Referral ID Status Reason Start Date Expiration Date Visits Re quested Visits Authorized [id number] Closed 05/16/2025 1 1 Encounter Details Date Type Department Care Team (Late st Contact Info) Description 05/16/2025 Orders Only [facility] [address] [place] [address] Otto Jiménez MD [address] [place] [id number] Social History Tobacco Use Types Packs/Day Years [...] EDT Office Visit [facility] [address] [place] [address] Niru Crawford PA-C [address] [place] [address] documented as of this encounter Procedures Procedure Name Priority Date/Time Associated Diagnosis Comments OUTSIDE CT ABD/PELVIS REPORT ONLY Routine 05/16/2025 2:48 PM EDT documented in this encounter Results * Outside CT Abd/pelvis Report Only (05/16/2025 2:48 PM EDT) us Historical Provider MD KURTZ CT ABD/PELVIS Final R esult documented in this encounter Visit Diagnoses Not on filedocumented in this encounter Additional Health Concerns Assessment Noted Time PHQ-9 Depression Total Score: 6 02/09/20 18 11:02 AM EDT PHQ-2 Depression Total Score: 0 01/07/20 25 9:40 AM EDT documented as of this encounter Care Teams Mask Layout Designer Relationship Specialty Start Date End Date Niru Crawford PA-C [address] [place] [address] PCP - General Physician Payroll Officer 10/18/24 documented as of this encounter Additional Source Comments The information contained in this document represents components of the legal health record. It is not the complete legal health record.Located [facility]
== END 2025-06-07 11:57 | disposition home or self-care (01) ==
LOC: HO.PMC 09:56
PROVIDERS: Visit Provider Internal Medicine
DX: M43.10 Spondylolisthesis, site unspecified (principal); M43.16 Spondylolisthesis, lumbar region; M50.321 Other cervical disc degeneration at C4-C5 level; M54.12 Radiculopathy, cervical region; M54.16 Radiculopathy, lumbar region
CPT/HCPCS: 99214

== ENCOUNTER → 2025-06-07 09:55 | Outpatient (BNVA) | payer MEDICAID, SELFPAY | PROVIDERS: Visit Provider Internal Medicine | DX: Z71.2 Person consulting for explanation of examination or test findings (principal); M43.10 Spondylolisthesis, site unspecified; M43.16 Spondylolisthesis, lumbar region; M50.321 Other cervical disc degeneration at C4-C5 level; M54.12 Radiculopathy, cervical region; M54.16 Radiculopathy, lumbar region | CPT/HCPCS: 99212 ==

== ENCOUNTER 2025-06-18 02:14 | Emergency (ER) | payer MEDICAID, SELFPAY ==
--- OUTSIDE RECORDS SUMMARY | 2024-02-04 09:30 | XMS_ITS ---
Author Organization [facility] Address [address] [place] [id number] Care Team Providers Care Inventory Assistant Name Role Phone JESSE HASSAN PA-C Primary Care Provider Unava Hank Pascal Unavailable [phone] Problems Problem Type SNOMED Code ICD Code Onset Dates Problem Status W/U Status Risk Notes Problem Chronic gastritis (0213869) Gastritis, chronic (K29.50) Active confirmed Encounters Encounter Location Date Provider Diagnosis [facility] [place] Out[place] [address] [place] [phone] 02/04/2024 Hank Stanford Plan Of Treatment No Information Progress Notes * GRAHAM MCINTOSH TDOB: 5 (49 yo M)Acc No.[id number]:02/04/2024 EGD/MAC Patient: Gypsy GRAHAM LAM Provider: Gypsy Stanford MD :1975 A ge:48 Y S ex:Male Date:02/04/2024 Address:[address] [place], [place] [phone] Pcp:JESSE HASSAN PA-C Subjective: * Chief Complaints: * * Medical History: Objective: * Vitals: Assessment: Plan: * Treatment: * * The named appointment provid er may or may not be the originator of this progress note, and it is not deemed complete until electronically signed by the appointment provider. Sign off status: Pending * Provider: Gypsy Stanford MD Date: 0 02/04/2024 Generated for Rahel lieberman/Chema/eTransmitting on: 0 06/18/2025 03:30 AM EDT
[2025-06-18 02:26] VITALS: BP 132/82; BP 182/80; PULSE 82; PULSE 89; RESP 20; TEMP 36.1; O2SAT 100; O2SAT 99; BMI 20.9
[2025-06-18 02:30] LABS: Glucose, Whole Blood 124 mg/dL (60-115)
[2025-06-18 02:52] LABS: Hematocrit 34.8 % (42.0-52.0); Hemoglobin 12.8 g/dl (14.0-18.0); Imm Gran Abs Auto 0.01 X10*3/uL (0.00-0.03); Imm Gran Pct Auto 0.2 % (0.0-0.4); Lymphocytes Absolute Auto 1.9 X10*3/uL (1.2-4.9); Mean Corpuscular HGB Conc 36.8 g/dl (31.0-36.0); Mean Corpuscular Hemoglobin 37.1 pg (27.0-33.0); Mean Corpuscular Volume 100.9 fL (80.0-98.0); NRBC Abs Auto 0.000 X10*3/uL (0.0-0.012); NRBC Pct Auto 0.0 /100WBC (0.0-0.2); Platelet Count 142 X10*3/uL (160-400); Red Blood Count 3.45 X10*6/uL (4.60-5.80); White Blood Count 6.0 X10*3/uL (4.8-10.8)
[2025-06-18 02:53] LABS: Appearance Urine Clear; Glucose Urine UA Negative (Negative); MANUAL DIFF FLAG NO; PH 6.5 (5.0-9.0); Specific Gravity - Urine 1.010 (1.005-1.025); UMIC TRIGGER UACC YES
[2025-06-18 03:06] LABS: Alanine Aminotransferase 71 U/L (0-40); Albumin Level 4.1 g/dL (3.5-5.0); Alkaline Phosphatase 153 U/L (39-117); Anion Gap 15 (12-20); Aspartate Amino Transferase 102 U/L (5-37); Blood Urea Nitrogen 13 mg/dL (9-16); Calcium 8.7 mg/dL (8.4-10.2); Carbon Dioxide 25 mmol/L (22-29); Chloride 105 mmol/L (96-108); Creatinine Clr Calc Pharmacy 74.6; Estimated Glomerular Filt Rate > 60; Lipase 11 U/L (8-78); Potassium 3.9 mmol/L (3.3-5.1); Sodium 141 mmol/L (135-145); Total Protein 6.3 g/dL (6.5-8.0)
[2025-06-18 03:08] LABS: Cannabinoid Screen Urine POSITIVE (Not Detect)
--- NOTE | 2025-06-18 03:19 | ED.GENADULT ---
HPI - General Adult General Chief complaint: Back Pain/Injury Stated complaint: Fluctuating Blood Sugar Time Seen by Provider: 06/18/25 03:18 Source: patient Mode of arrival: ambulatory Limitations: no limitations History of Present Illness ED Provider: Humble ALTAMIRANO HPI narrative: The patient is a 49-year-old male with a history of diabetes, chronic neck pain with cervical radiculopathy, chronic back pain followed by a pain clinic, depression, and tobacco dependency, presenting to the ED via EMS for evaluation of multiple complaints. Patient reports his blood sugars have been fluctuating throughout the day, reports 8 hours ago blood sugar was 47, reports he ate and blood sugar improved. Patient also reports ongoing chronic back pain which is not being effectively controlled by his home medications. The patient denies any recent fall or blunt trauma, but has been walking excessively. Related Data Home Medications ?Medication ?Instructions ?Recorded ?Confirmed clonazepam 0.5 mg tablet 0.5 mg PO BEDTIME PRN Anxiety 07/16/21 06/07/25 subcutaneous insulin pump (Tandem 12/29/24 05/10/25 [employer]i System) cholecalciferol (vitamin D3) 25 25 mcg PO DAILY 01/16/25 06/07/25 mcg (1,000 unit) tablet clonidine HCl 0.1 mg tablet 0.1 mg PO DAILY 01/16/25 06/07/25 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,clinical trials assistant,cont 05/10/25 05/10/25 (Dexcom G6 Mechanical Specialist) folic acid 1 mg tablet 1 mg PO DAILY 05/16/25 06/07/25 lisinopril 5 mg tablet 5 mg PO DAILY 05/16/25 06/07/25 omeprazole 40 mg capsule,delayed 40 mg PO DAILY 05/16/25 06/07/25 release thiamine HCl (vitamin B1) 100 mg 100 mg PO DAILY 05/16/25 06/07/25 tablet Previous Rx's ?Medication ?Instructions ?Recorded insulin syringe-needle U-100 0.3 #150 ea 08/29/20 mL 29 gauge x 1/2 (BD Insulin Syringe) pen needle, diabetic 32 gauge x #50 ea 08/29/20 5/32 (BD Felisha 2nd Gen Pen Needle) 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 meter (FreeStyle #1 ea 10/22/22 Lite Meter kit) blood sugar diagnostic (FreeStyle #300 ea 02/19/23 Lite Strips) lancets 28 gauge (FreeStyle #100 ea 02/19/23 Lancets) acetone (urine) test (Ketone Urine #25 ea 11/02/24 Test strips) amlodipine 10 mg tablet 10 mg PO DAILY #90 tabs 01/19/25 insulin lispro 100 unit/mL See Rx Instructions .Route 02/22/25 subcutaneous solution .COMPLEX #30 mL lidocaine 5 % topical patch 1 patch topical DAILY PRN pain #30 03/04/25 (Lidoderm) ea meloxicam 7.5 mg tablet 7.5 mg PO DAILY #20 tabs 03/14/25 baclofen 10 mg tablet 10 mg PO BID PRN muscle spasm #20 04/06/25 tabs gabapentin 400 mg capsule 400 mg PO BID PRN pain (scale 06/07/25 score 4-6) #60 caps Allergies Allergy/AdvReac Type Severity Reaction Status Date / Time hydroxyzine (From VISTARIL) Allergy Intermediate RASH, Verified 06/18/25 02:30 ANXIOUS quetiapine (Seroquel) AdvReac Intermediate Unknown Verified 06/18/25 02:30 Review of Systems Review of Systems: Yes all other systems are reviewed and are negative [facility] Past Medical History Medical History Constipation History of methadone use Intravenous drug user Peripheral vascular disease Elevated liver function tests Polysubstance abuse Osteoarthritis Type 1 diabetes History of drug abuse Depression Vitamin D deficiency 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 Mother No problems noted. Social History Social History Household Members: Family Household Members Other:: mother Housing: House Do you presently have visiting nurse or other home services: No Alcohol intake: former Patient Tobacco Use Status: Current everyday Tobacco user Tobacco use type: Cigarette Cigarettes Per Day: 3 Years Smoked: 33 e-Cigarette/Vaping Use: Currently Using Second Hand Smoke Exposure: No Substance Use Type: Marijuana Advance Directives Date on File: 08/29/20 service: No Current occupational status: unemployed Physical Exam ED Vital Signs: Vital Signs - 24 hr 06/18/25 02:26 Temperature 97.0 F Pulse Rate 89 Respiratory Rate 20 Blood Pressure 132/82 Pulse Oximetry 99 Oxygen Delivery Method Room Air BMI result Body Mass Index 20.9 CONSTITUTIONAL: The patient appears non-toxic, well nourished and in no acute distress. Vital signs as documented. HEAD: Atraumatic, normocephalic. EYES: EOMs grossly intact, pupils equal, conjunctiva clear, no exudate. ENT: Nares patent, no discharge. Airway patent, no audible stridor, visible mucosa is pink and moist without noted lesions. NECK: trachea is midline, no obvious masses or gross abnormalities. CHEST: Symmetric movement, normal appearance. LUNGS: Non-labored work of breathing. CARDIAC: No evidence of hypoperfusion. ABDOMEN: Nondistended, no obvious injury. : Deferred. EXTREMITIES: Moves all extremities spontaneously without reported pain. No obvious injury or deformity noted. NEURO: Alert and oriented x3, CN II-XII appear grossly intact. Cerebellar Functioning grossly intact. Speech clear and appropriate. SKIN: Warm, dry, color appropriate. No rashes or lesions noted. Medical Decision Making Medical Decision Making MDM Narrative: 3:24 AM 06/18/2025 (Declan ALTAMIRANO): The patient is a 49-year-old male suffering from chronic neck and back pain as well as diabetes, presenting to the ED for reports of fluctuating blood sugars and persistent chronic back pain not controlled by home medications. The patient arrived to the ED via EMS with blood sugar 124. Patient initially was cooperative with nursing triage, however while awaiting provider assessment the patient was noted to be cursing and yelling loudly from his exam room. This provider went to see the patient. Upon initiation of interview this provider requested the patient avoid cursing and lower the volume of his voice to allow other patients to rest. Patient became highly agitated and verbally abusive towards this provider. Patient began escalating his cursing and volume in response to the request. staff electrical engineer also requested the patient lower his voice and patient began name calling both this provider and the RN. Patient was noted to be moving about without evidence of discomfort or distress, patient was oriented to place, time, and situation, did not appear clinically intoxicated by exogenous substances. Patient then began attempting to take his home medications without approval from this provider telephone operator chief. When advised not to take his own medications patient continued name calling and then began making threats of violence towards staff, including threatening to physically fight this provider. At this time security was called and patient was escorted from the ED. While being escorted patient was witnessed walking with a steady gait without evidence of discomfort. Patient's laboratory evaluation was reviewed, there was no evidence of leukocytosis or significant anemia, there is no electrolyte abnormality, elevated anion gap, low CO2, significant hyperglycemia, hypoglycemia. Urinalysis shows no glucose or ketones, no evidence of infection. No concern for DKA. Patient's LFTs are mildly elevated, but consistent with patient's baseline. Lipase is normal. UDS is positive for marijuana, otherwise unremarkable. Admission/Observation Consideration of admission/observation: Escalation of care including admission/observation considered Lab Data MDM Lab Attestation statement: I reviewed the patient's lab results. 06/18/25 02:46 06/18/25 02:46 Labs: Lab Results 06/18/25 06/18/25 Range/Units 02:26 02:46 Sodium 141 (135-145) mmol/L Potassium 3.9 (3.3-5.1) mmol/L Chloride 105 (96-108) mmol/L Carbon Dioxide 25 (22-29) mmol/L Anion Gap 15 (12-20) BUN 13 (9-16) mg/dL Creatinine 1.14 (0.5-1.4) mg/dL Estim Creat Clear Calc 74.6 Estimated GFR > 60 POC Glucose 124 H (60-115) mg/dL Random Glucose 139 H (60-115) mg/dL Calcium 8.7 D (8.4-10.2) mg/dL Total Bilirubin 0.5 (0.0-1.0) mg/dL AST 102 H (5-37) U/L ALT 71 H (0-40) U/L Alkaline Phosphatase 153 H (39-117) U/L Total Protein 6.3 L (6.5-8.0) g/dL Albumin 4.1 (3.5-5.0) g/dL Lipase 11 (8-78) U/L Urine Color Yellow Urine Appearance Clear Urine pH 6.5 (5.0-9.0) Ur Specific [place] 1.010 (1.005-1.025) Urine Protein Negative (Neg-Trace) mg/dL Urine Glucose (UA) Negative (Negative) mg/dL Urine Ketones Negative (Negative) mg/dL Urine Blood Trace H (Negative) Urine Nitrite Negative (Negative) Ur Leukocyte Esterase Negative (Negative) Urine Opiates Screen Not Detected (Not Detect) Ur Buprenorphine Scrn Not Detected (Not Detect) ng/mL Ur Oxycodone Screen Not Detected (Not Detect) ng/mL Urine Methadone Screen Not Detected (Not Detect) ng/mL Urine Fentanyl Screen Not Detected (Not Detect) Ur Barbiturates Screen Not Detected (Not Detect) Ur Phencyclidine Scrn Not Detected (Not Detect) Ur Amphetamines Screen Not Detected (Not Detect) U Benzodiazepines Scrn Not Detected (Not Detect) Urine Cocaine Screen Not Detected (Not Detect) U Marijuana (THC) Screen POSITIVE H (Not Detect) External Record Review External record reviewed: Outpatient record and Prior outpatient labs Discharge Plan Discharge Clinical Impression: Back pain Patient Disposition: Home, Self-Care Instructions: Back Pain (ED) Additional Instructions: Your blood sugars today were normal and there is no evidence of a diabetic emergency on your laboratory evaluation. There is also no evidence of bacterial infection, urinary tract infection, kidney dysfunction, electrolyte abnormality, or other acute process. Please follow up with your lead based paint technician for continued management of your back pain. Please follow up with your primary care physician for re-evaluation, additional management of your symptoms, and continued preventative care. If you do not have a primary care physician, please call the [facility] at [phone] to establish a new primary care physician. While waiting to establish your new primary care physician, you can call our Walk[facility]in [facility] at [phone] for non-emergency needs. Please return to the emergency department if you develop a severe or sudden change in your symptoms, a fever over 100.4 that does not improve with Tylenol or Ibuprofen, recurrent vomiting, or any other new or worsening symptoms or concerns. Prescriptions: No Action (DME) insulin syringe-needle U-100 [BD Insulin Syringe] 0.3 mL 29 gauge x 1/2 syringe See Rx Instructions .ROUTE .MEDSUPPLY Qty: 150 5RF Rx Instructions: 4 times a day (DME) pen needle, diabetic [BD Felisha 2nd Gen Pen Needle] 32 gauge x 5/32 needle See Rx Instructions .ROUTE .MEDSUPPLY Qty: 50 4RF Rx Instructions: once a day (DME) 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 meter [FreeStyle Lite Meter] Kit See Rx Instructions .Route Qty: 1 0RF Rx Instructions: As directed-checks 4 X/day insulin lispro 100 unit/mL solution See Rx Instructions .ROUTE .COMPLEX Qty: 30 11RF Rx Instructions: UP TO 100 UNITS DAILY VIA INSULIN PUMP (TANDEM TSLIM x2) (DME) Tandem Mobi System Misc MISCELLANEOUS Rx Instructions: UP TO 100 UNITS INSULIN LISPRO DAILY VIA PUMP meloxicam 7.5 mg tablet 7.5 mg PO DAILY Qty: 20 0RF thiamine HCl (vitamin B1) 100 mg tablet 100 mg PO DAILY folic acid 1 mg tablet 1 mg PO DAILY lisinopril 5 mg tablet 5 mg PO DAILY omeprazole 40 mg capsule,delayed release(DR/EC) 40 mg PO DAILY clonidine HCl 0.1 mg tablet 0.1 mg PO DAILY cholecalciferol (vitamin D3) 25 mcg (1,000 unit) tablet 25 mcg PO DAILY amlodipine 10 mg Tablet 10 mg PO DAILY Qty: 90 0RF Protocol: Hold for SBP< HOLD for SBP < : 90 lidocaine [Lidoderm] 5 % adhesive patch,medicated 1 patch topical DAILY MDD remove after 12 hours PRN (Reason: pain) Qty: 30 0RF Rx Instructions: leave on most painful area for up to 12 hrs baclofen 10 mg tablet 10 mg PO BID PRN (Reason: muscle spasm) Qty: 20 0RF Rx Instructions: Do not take this medication before driving or going to work, it may make you feel drowsy. clonazepam 0.5 mg tablet 0.5 mg PO BEDTIME PRN (Reason: Anxiety) Rx Instructions: AT BEDTIME (DME) FreeStyle Lite Strips Strip See Rx Instructions .ROUTE .MEDSUPPLY Qty: 300 11RF Rx Instructions: 4x daily (DME) lancets [FreeStyle Lancets] 28 gauge misc See Rx Instructions .Route Qty: 100 5RF Rx Instructions: As directed 4 X/day (DME) Ketone Urine Test Strip See Rx Instructions .ROUTE .MEDSUPPLY Qty: 25 1RF Rx Instructions: prn tid for nausea, vomiting, illness, glucose remaining over 250 gabapentin 400 mg capsule 400 mg PO BID PRN (Reason: pain (scale score 4-6)) Qty: 60 0RF (DME) Dexcom G6 Mechanical Specialist Misc See Rx Instructions .Route Rx Instructions: As directed Print Language: Anguill[place]
--- OUTSIDE RECORDS SUMMARY | 2025-06-18 03:30 | XMS_ITS | Clinical Summary ---
Author Organization [facility] Address [address] [address] Phone Care Team Providers Care District Traffic Chief Name Role Phone Niru Crawford PA-C Primary Care Provider [phone] Allergies Active Allergy Reactions Criticality Noted Date [...] daily. 30 tablet 2 04/30/20 23 Active sliwshbo-wad-dedh fum-folic ac 7.5 mg iron-400 mcg Tab [...] is currently under the care of a daycare director. He has abstained from alcohol consumption and [...] back pain. He is also following with [facility] pain management clinic for which they [...] Routine general medical exam ination at a [facility] facility 10/18/2024 Assessment & Plan (10/18/2024 2:12 [...] Plan (04/19/2025 3:04 PM EDT): Following with [facility] endocrinology, well-managed with most recent A1c [...] follow with endocrinology and diabetes center at [place], upcoming appointment tomorrow. He uses a Dexcom monitor for blood sugar monitoring and has an insulin pump. He has never had a diabetic eye exam, [facility] referral placed. He has never had a [...] Encounters Date Type Department Care Team Description 06/07/2025 Telephone [facility] Internal Medicine [address] [facility] [address] Niru Crawford PA-C Problem with script 05/25/2025 10:28 AM EDT - 05/25/2025 11:59 PM EDT Hospital Encounter [facility] - [address] [place] [address] Niru Crawford PA-C Discharge Disposition: Home or Self Care 05/25/2025 Telephone [facility] Internal Medicine [address] [facility] [place] [address] Niru Crawford PA-C Results 05/16/2025 Orders Only [facility] Internal Medicine [address] [facility] [place] [address] Otto Jiménez MD 05/10/2025 Orders Only [facility] Internal Medicine [address] [facility] [place] [address] Otto Jiménez MD 05/05/2025 Telephone [facility] Internal Medicine [address] [facility] [address] Niru Crawford PA-C Results 04/29/2025 9:41 AM EDT - 04/29/2025 11:59 PM EDT Hospital Encounter [facility], Ct Scan - [address] [address] Niru Crawford PA-C Discharge Disposition: Home or Self Care 04/27/2025 10:19 AM EDT - 04/27/2025 11:59 PM EDT Hospital Encounter [facility] [address] [facility] 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 04/19/2025 Procedure Pass [facility], Ct Scan - [facility] [address] [place] [address] 04/19/2025 Telephone [facility] Internal [facility] [address] [place] [address] Niru Crawford PA-C Question on imaging 04/07/2025 Telephone [facility] Internal [facility] [address] [place] [address] Niru Crawford PA-C Pain Management Referral 04/06/2025 Refill [facility] [address] [place], [place] [phone] Rafia Negrete Medication Refill 04/06/2025 Telephone [facility] [address] [place], [place] [phone] Rafia Negrete Follow-up (ED visit ) 03/20/2025 Orders Only [facility] Internal Medicine [address] [place] [address] ProviderOtto MD 03/20/2025 Telephone [facility] Internal [facility] [address] [place] [address] Niru Crawford PA-C Follow-up from Last 3 Months Immunizations Immunization Administration [...] AM EDT Office Visit [facility] Internal Medicine [address] [place] [address] Niru Crawford PA-C [address] [place] [address] Health Maintenance Due Date Last Done Comments HEPATITIS A VACCINES (1 of 2 - Risk 2-dose series) 1993 COLOGUARD 2019 FIT TEST 2019 FOBT 2019 SIGMOIDOSCOPY 2019 VIRTUAL COLONOSCOPY 2019 DIABETIC EYE EXAM 11/14/2023 11/14/2022, , 06/18/2016 PNEUMOCOCCAL VACCINES (50+ years) (3 of 3 - PCV20 or PCV21) 2024 09/22/2019, 09/04/2010, 08/18/2008 ZOSTER VACCINES (1 of 2) 2024 INFLUENZA VACCINE (#1) 2025 , 07/29/2023, 08/09/2022, Additional history exists COVID-19 VACCINE ( - season) 2025 08/09/2022, 02/16/2021, 01/27/2021 BLOOD PRESSURE 10/20/2025 04/19/2025 HEMOGLOBIN A1C 10/28/2025 [...] EDT Routine general medical examination at a [facility] care facility LIPID PANEL Routine 04/27/2025 10:19 AM EDT Routine general medical examination at a health care facility COMPREHENSIVE METABOLIC PANEL Routine 04/27/2025 10:19 AM EDT Left inguinal pain OUTSIDE LAB Routine 03/18/2025 4:44 PM EDT HM COLONOSCOPY FOR RESULT ENTRY ONLY [...] clinician's provided indication for this examination in [facility]: Renal cyst TECHNIQUE: Kidney Ultrasound. COMPARISON: CT [...] clinician's provided indication for this examination in [facility]:Renal cyst TECHNIQUE: Kidney Ultrasound. COMPARISON: CT of the abdomen and pelvis April 2025 and abdominalultrasound August 2021 FINDINGS: Right Kidney: Size: 11.9 cm Normal. No stones or hydronephrosis. Left Kidney: Size: 12.6 cm 1.6 x 1.7 x 1.3 cm peripelvic cyst in the lower pole. No stones orhydronephrosis. Echogenic liver. IMPRESSION: 1. Normal right kidney. 2. 1.6 x 1.7 cm left peripelvic cyst. Niru KURTZ US RENAL Final Result * Outside CT Abd/pelvis Report Only (05/16/2025 2:48 PM EDT) Historical Provider MD KURTZ CT ABD/PELVIS Final R esult * Outside Imaging Report Only (05/09/2025 8:03 AM EDT) Historical Provider MD IMG XR CHEST Final Res ult * Outside Imaging Report Only (05/09/2025 8:01 AM EDT) us Historical Provider MD KURTZ XR CHEST Final Res ult * CT [...] URINE MICROALBUMIN 2.6(H) 0 - 2.3 mg/dL [facility] URINE CREATININE 115 mg/dL [employer] [facility] MICROALB/CRE RATIO 22.6(H) 0 - 20 mg/g Cre [facility] Urine (Urine) 04/27/2025 10: 47 AM EDT 04/27/2025 10:51 AM EDT Niru Crawford PA-C URINE ORDERABLES Final Resul t [facility] [address] [place] [address] * (ABNORMAL) Comprehensive metabolic panel (04/27/2025 10:19 AM EDT) SODIUM 142 133 - 146 mmol/L [facility] POTASSIUM 4.2 3.3 - 5.1 mmol/L [facility] CHLORIDE 105 96 - 108 mmol/L [facility] CO2 25 21 - 35 mmol/L [facility] BUN 12 6 - 19 mg/dL [facility] CREATININE 1.00 0.5 - 1.5 mg/dL [facility] GLUCOSE 85 70 - 99 mg/dL [facility] ALBUMIN 4.2 3.9 - 4.8 g/dL [facility] TOTAL PROTEIN 6.8 6.5 - 8.0 g/dL [facility] CALCIUM 9.2 8.4 - 10.3 mg/dL [facility] ALKALINE PHOSPHATASE 243(H) 39 - 117 U/L [facility] TOTAL BILIRUBIN 0.7 0.0 - 1.2 mg/dL [facility] AST 215(H) 0 - 37 U/L [facility] ALT 74(H) 0 - 40 U/L [facility] GLOBULIN 2.6 1 - 4.8 g/dL [facility] EGFR 92 >59 mL/min/1.7 3m2 [facility] Comment:Estimated glomerular filtration rate calculated using the CKD-EPI refit equation. ANION GAP 16 10 - 20 mmol/L [facility] Blood 04/27/2025 10:1 9 AM EDT 04/27/2025 10:35 AM EDT [facility] Yvette PA-C LAB BLOOD ORDERABLES Final R esult Performing Organization Address City/[facility]/ZIP Co de Phone Number [address] [address] * TSH with reflex (04/27/2025 10:19 AM EDT) TSH 1.45 0.27 - 4.20 uIU/mL [facility] Blood 04/27/2025 10:1 9 AM EDT 04/27/2025 10:35 AM EDT [facility] PA-C LAB BLOOD ORDERABLES Final R esult [address] [address] * Hemoglobin A1c (04/27/2025 10:19 AM EDT) HEMOGLOBIN A1C 5.5 4.3 - 5.8 % [facility] Blood 04/27/2025 10:1 9 AM EDT 04/27/2025 10:35 AM EDT [facility] LAB BLOOD ORDERABLES Final R esult Performing Organization Address City/[facility]/ZIP Co de Phone Number [address] [address] * (ABNORMAL) Lipid panel (04/27/2025 10:19 AM EDT) HDL 75 mg/dL [facility] Comment: Interpretation <40 mg/dL: Low HDL cholesterol (major risk factor for CHD) Greater than or equal to 60 mg/dL: High HDL cholesterol ( negative risk factor for CHD) HDL - cholesterol is affected by a number of factors, e.g. smoking, excerise, hormones, sex and age. CHOLESTEROL 130 0 - 240 mg/dL [facility] TRIGLYCERIDES 214(H) 30 - 160 mg/dL [facility] LDL 12(L) 50 - 129 mg/dL [facility] Comment: LDL levels in terms of risk for coronary heart disease: <100 mg/dL: Optimal 100-129 mg/dL: Near or above optimal 130-159 mg/dL: Borderline high 160-189 mg/dL: High >190 mg/dL: Very High CARDIAC RISK RATIO 1.7(L) 3.4 - 5.0 C [facility] Blood 04/27/2025 10:1 9 AM EDT 04/27/2025 10:35 AM EDT Niru ALTAMIRANO-C LAB BLOOD ORDERABLES Final R esult Performing Organization Address City/[facility]/ZIP Co de Phone Number [address] [address] * Outside Lab (03/18/2025 4:44 PM EDT) Historical Provider LAB BLOOD ORDERABLES Edit ed Result - Final * COLONOSCOPY FOR RESULT ENTRY ONLY (03/16/2023) us Linda Carrasquillo NP HEALTH MAINTENANCE Edited Resul t - Final * DIABETES EYE EXAM FOR RESULT ENTRY ONLY (11/14/2022) Linda Carrasquillo NP HEALTH MAINTENANCE Edited Resul t - Final * Hepatitis C antibody, qualitative (09/09/2021 10:25 AM EST) HCV NON-REACTIV E NON-REACTI VE [facility] Blood 09/09/2021 10:2 5 AM EST 09/09/2021 10:27 AM EST Linda Carrasquillo NP LAB BLOOD ORDERABLES Final Resu lt [address] [address] from Last 3 Months or Most Recently Relevant to Health Maintenance Insurance [facility] Care Teams District Traffic Chief Relationship Specialty Start Date End Date Niru Crawford PA-C [address] [place] [address] [email or web address] PCP - General Physician Renal Social Worker 10/18/24 Additional Source Comments The information contained in this document represents components of the legal health record. It is not the complete legal health record.[facility]
--- OUTSIDE RECORDS SUMMARY | 2025-06-18 03:30 | XMS_ITS | Encounter Summary ---
Author Organization [facility] Address [address] [place] [address] Phone Care Team Providers Care Photoradio Operator Name Role Phone Niru Crawford Primary Care Provider [phone] Encounter Details Date Type Department Care Team (Late st Contact Info) Description 09/30/2023 Documentation Only [facility] [address] [place] [id number] Linda Carrasquillo NP Social History Tobacco Use [...] Visit [facility] [address] [place] [address] Juan Yee MD [address] [place] [address] [place] [address] documented as of this encounter Visit Diagnoses Not on filedocumented in this encounter Care Teams Photoradio Operator Relationship Specialty Start Date End Date Yvette Niru [address] [place] [address] PCP - General 11/08/24 documented as of this encounter
--- OUTSIDE RECORDS SUMMARY | 2025-06-18 03:30 | XMS_ITS | Encounter Summary ---
Author Organization [facility] Address [address] [facility] [address] [place] [address] Phone Care Team Providers Care Resolution Analyst Name Role Phone Niru Crawford PA-C Primary Care Provider + [phone] Reason for Visit * Reason Onset Date Comments Follow-up 04/06/2025 ED visit Encounter Details Date Type Department Care Team ([facility] st Contact Info) Description 04/06/2025 Telephone [facility] [address] [place] [address] Rafia [email or web address] Follow-up (ED visit ) Social History Tobacco [...] F/U on 04/07/2025 booked 04/19/2025 Central Support Fourth Mate (Please do not reply to this user; this inbox is not monitored.) Thank you. * Pat Seals - 04/06/2025 3:18 PM EDT Left VM for patient to schedule ER follow up Requested [facility] ER Note fax [phone]/confirmation received * Rafia Negrete - 04/06/2025 2:55 PM EDT [facility] PEN Top Smart Phrases: Emergency Department (ED, ER) Appointment Booking Telephone Encounter 1.Appointment scheduled within 5 calendar days:YES/NO: no? 2.Virtual or in-person appointment: N/A 3.Information related to the patient ER/ED visit: A. Facility Name:[facility] B. Date of ED Visit: [...] Description 06/29/2025 8:40 AM EDT Office Visit [facility] Internal Medicine [address] [place] [address] Niru Crawford PA-C [address] [place] [address] documented as of this encounter Visit Diagnoses Not on filedocumented in this encounter Additional Health Concerns Assessment Noted Time PHQ-9 Depression Total Score: 6 02/09/20 18 11:02 AM EDT PHQ-2 Depression Total Score: 0 01/07/20 25 9:40 AM EDT documented as of this encounter Care Teams Resolution Analyst Relationship Specialty Start Date End Date Niru Crawford PA-C [address] [place] [address] PCP - General Physician Radial Drill Press Operator For Plastic 10/18/24 documented as of this encounter Additional Source Comments The information contained in this document represents components of the legal health record. It is not the complete legal health record.[facility]
--- OUTSIDE RECORDS SUMMARY | 2025-06-18 03:30 | XMS_ITS | Patient Health Record ---
Author Organization [facility] Address [address] [place] [address] Care Team Providers Care Chief Cardiopulmonary Technologist Name Role Phone JESSE HASSAN PA-C Primary Care Provider Hank Palomo Unavailable [phone] Allergies Allergen (clinical drug ingredient) Drug/Non Drug [...] 2013; uses medical marijuana from dispensary in [place] for apetitie stimulant, anxiety/depression, and pain relief. Smokes 2 cigs QD Recovering alcoholic--heavy until 2009--reports occ. lapses, but last time was 2014; substance abuse with previous IVDA-none since 2014; uses medical marijuana from dispensary in [place] for apetitie stimulant, anxiety/depression, and pain relief. Smokes 2 cigs QD. Recovering alcoholic--heavy until 2009--reports occ. lapses, but last time was 2014; substance abuse with previous IVDA-none since 2014; uses medical marijuana from dispensary in [place] for apetitie stimulant, anxiety/depression, and pain relief. Smokes 2 cigs QD. Problems Problem Type SNOMED Code ICD Code Onset Dates Problem Status W/U Status Risk Notes Problem 090574467 Colon cancer screening (Z12.11) Active confirmed Problem Diverticular disease of colon (232723442) Diverticulosis of large intestine without perforation or abscess without bleeding (K57.30) Active confirmed Problem 514925275 Elevated liver function tests (R79.89) Active confirmed Problem Chronic gastritis (0199967) Gastritis, chronic (K29.50) Active confirmed Problem 54568831 Erosive esophagitis (K22.10) Active confirmed Problem Gastritis (6795018) Gastritis (K29.70) Active confirmed Problem 512110880 Abnormal CT scan , esophagus (R93.3) Active confirmed Problem 791192798 Idiopathic acute pancreatitis without infection or necrosis (K85.00) Active confirmed Problem Gastroesophageal reflux disease with esophagitis (disorder) (751749937) Gastro-esophageal reflux disease with esophagitis, without bleeding [...] Medicaid [address] [place] [phone] [id number] GRAHAM MCINTOSH Self - patient is the insured MEDICAID OF [facility] [address] [place] [phone] [id number] GRAHAM MCINTOSH Self - patient is the insured Medical (General) History Medical History History ICD Code IDDM--has an Insulin pump Denies NE,CVA,Lung disease,renal disease Anxiety/Depression/PTSD Arthritis Substance and alcohol [...]
--- OUTSIDE RECORDS SUMMARY | 2025-06-18 03:30 | XMS_ITS | Encounter Summary ---
Author Organization [facility] Address [address] [facility] [address] [place] [address] Phone Care Team Providers Care Security Supervisor Name Role Phone Niru Crawford PA-C Primary Care Provider + [phone] Encounter Details Date Type Department Care Team (Late st Contact Info) Description 04/19/2025 Procedure Pass [facility], Ct Scan - [address] [address] Social History Tobacco Use Types Packs/Day Years [...] Description 06/29/2025 8:40 AM EDT Office Visit [facility] Internal Medicine [address] [place] [address] Niru Crawford PA-C [address] [place] [address] [email or web address] documented as of this encounter Visit Diagnoses Not on filedocumented in this encounter Additional Health Concerns Assessment Noted Time PHQ-9 Depression Total Score: 6 02/09/20 18 11:02 AM EDT PHQ-2 Depression Total Score: 0 01/07/20 25 9:40 AM EDT documented as of this encounter Care Teams Security Supervisor Relationship Specialty Start Date End Date Niru Crawford PA-C [address] [place] [address] [email or web address] PCP - General Physician Entry Clerk 10/18/24 documented as of this encounter Additional Source Comments The information contained in this document represents components of the legal health record. It is not the complete legal health record.[facility]
--- OUTSIDE RECORDS SUMMARY | 2025-06-18 03:30 | XMS_ITS | Encounter Summary ---
Author Organization [facility] Address [address] [facility] [address] [place] [address] Phone Care Team Providers Care Dray Truck Driver Name Role Phone Niru Crawford PA-C Primary Care Provider + [phone] Reason for Referral * MRI/CAT Scan - Closed Specialty Diagnoses / Procedures Referred By Karen taylor Referred To Contact Radiology Procedures Outside CT Abd/pelvis Report Only [facility] Internal Medicine [address] [place] [address] Phone: tel: fax: Referral ID Status Reason Start Date Expiration Date Visits Re quested Visits Authorized [id number] Closed 05/16/2025 1 1 Encounter Details Date Type Department Care Team (Late st Contact Info) Description 05/16/2025 Orders Only [facility] Internal Medicine [address] [place] [address] Otto Jiménez MD [address] [place] [address] Social History Tobacco Use Types Packs/Day [...] EDT Office Visit [facility] Internal [facility] [address] [place] [address] Niru Crawford PA-C [address] [place] [address] documented as of this encounter Procedures Procedure [...] documented as of this encounter Care Teams Dray Truck Driver Relationship Specialty Start Date End Date Niru Crawford PA-C [address] [place] [address] PCP - General Physician Hot Baller 10/18/24 documented as of this encounter Additional Source Comments The information contained in this document represents components of the legal health record. It is not the complete legal health record.[facility]
--- OUTSIDE RECORDS SUMMARY | 2025-06-18 03:30 | XMS_ITS | Clinical Summary ---
Author Organization [facility], Address [address] [place] [address] [place] [address] Phone Care Team Providers Care Pipe Stripper Name Role Phone Niru Crawford Primary Care Provider [phone] Allergies Active Allergy Reactions Criticality Noted Date [...] Visit [facility] [place], [address] [place] [address] Juan Yee MD [address] [place] [address] Health Maintenance Due Date Last Done [...] 48 Years) Discontinued 09/22/2019, 09/04/2010, 08/18/2008 Insurance [facility] Plan Care Teams Pipe Stripper Relationship Specialty Start Date End Date Niru Crawford [address] [place] [address] PCP - General 11/08/24
--- NOTE | 2025-06-18 03:40 | PC.NURSE ---
pt continues to be disrespectful, pt using foul language, making threat to provider and staff. Security called to escort out
[2025-06-18 03:42] VITALS: BP 132/82; PULSE 89; RESP 20; TEMP 36.1; O2SAT 99
== END 2025-06-18 03:42 | disposition home or self-care (01) ==
PROVIDERS: Emergency Provider Emergency Medicine
DX: M54.9 Dorsalgia, unspecified (principal); M54.12 Radiculopathy, cervical region; F32.A Depression, unspecified; K59.00 Constipation, unspecified; I73.9 Peripheral vascular disease, unspecified; E10.9 Type 1 diabetes mellitus without complications; F17.210 Nicotine dependence, cigarettes, uncomplicated
CPT/HCPCS: 36415; 80053; 80307; 81001; 82947; 83690; 85025; 99284

== ENCOUNTER 2025-07-04 11:36 | Outpatient (REF) | payer MEDICAID, SELFPAY ==
--- OUTSIDE RECORDS SUMMARY | 2024-02-04 09:30 | XMS_ITS ---
Author Organization [facility] Address [address] [place] [phone] Care Team Providers Care Flare Worker Name Role Phone JESSE HASSAN PA-C Primary Care Provider Unava Hank Pascal Unavailable [phone] Problems Problem Type SNOMED Code ICD Code Onset Dates Problem Status W/U Status Risk Notes Problem Chronic gastritis (6422208) Gastritis, chronic (K29.50) Active confirmed Encounters Encounter Location Date Provider Diagnosis [facility] [place] Outpatient [address] [place] [phone] 02/04/2024 Hank Stanford Plan Of Treatment No Information Progress Notes * GRAAHM MCINTOSH TDOB: 5 (49 yo M)Acc No.[id number]:02/04/2024 EGD/MAC Patient: Gypsy GRAHAM LAM Provider: Gypsy Stanford MD :1975 A ge:48 Y S ex:Male Date:02/04/2024 Address:[address] [place], [place] [phone] Pcp:JESSE HASSAN PA-C Subjective: * Chief Complaints: [...] 02/04/2024 Generated for Rahel lieberman/Chema/eTransmitting on: 0 07/04/2025 02:31 PM EDT
--- NOTE | ~2025-07-04 | XR_ITS ---
EXAMINATION: XR CERVICAL SPINE CLINICAL INFORMATION: M50.321 - Other cervical disc degeneration at C4-C5 level COMPARISON: MRI May 09, 2025 x-ray 05/23/2017 TECHNIQUE: 6 views of the cervical spine, inclusive of flexion and extension views, were obtained. FINDINGS: Soft tissues are unremarkable. C4-5 demonstrates moderate disc space narrowing with endplate sclerosis and osteophytes. . There is a stable mild grade 1 retrolisthesis. C5-6 and C7 demonstrate mild disc space narrowing. XR/XR cervical spine w flex/ext IMPRESSION: C4-5 demonstrates moderate degenerative disc disease with subtle grade 1 retrolisthesis without evidence of instability during flexion and extension. Electronically signed by: Александр Betts MD 07/04/2025 12:28 PM EDT
--- NOTE | ~2025-07-04 | XR_ITS ---
EXAMINATION: XR LUMBOSACRAL SPINE BENDING FILMS ONLY CLINICAL INFORMATION: M43.16 - Spondylolisthesis, lumbar region COMPARISON: MRI May 09, 2025 and x-ray February 20, 2017 TECHNIQUE: AP, and lateral: Flexion, neutral, and extension and spot view x-rays of the lumbar spine. FINDINGS: There is increasing atherosclerotic calcification abdominal aorta compared to the prior x-ray. There are 5 nonrib-bearing lumbar segments. There is mild convex right curvature of the lumbar spine. L5-S1 demonstrates grade 1 anterolisthesis with bilateral pars intraarticularis defects are chronic. During flexion, there is 5 mm anterolisthesis. During extension there is 9 mm anterolisthesis. No other areas of instability are demonstrated. XR/XR lumbar spine bending only IMPRESSION: L5-S1 demonstrates chronic bilateral pars intraarticularis defects with grade 1 anterolisthesis and suspected instability. Electronically signed by: Александр Betts MD 07/04/2025 12:25 PM EDT
--- OUTSIDE RECORDS SUMMARY | 2025-07-04 14:32 | XMS_ITS | Encounter Summary ---
Author Organization [facility] Address [address] [place] [address] Phone Care Team Providers Care Tube Bender Name Role Phone Niru Crawford Primary Care Provider [phone] Encounter Details Date Type Department Care Team (Late st Contact Info) Description 09/30/2023 Documentation Only [facility] [address] [place] [phone] Linda Carrasquillo NP Social History Tobacco Use [...] Visit [facility] [address] [place] [address] Juan Yee MD [address] [place] [address] Dr. [place] [address] documented as of this encounter Visit Diagnoses Not on filedocumented in this encounter Care Teams Tube Bender Relationship Specialty Start Date End Date Yvette Niru [address] [place] [address] PCP - General 11/08/24 documented as of this encounter
--- OUTSIDE RECORDS SUMMARY | 2025-07-04 14:32 | XMS_ITS | Clinical Summary ---
Author Organization [facility], Address [address] [place] [address] [place] [address] Phone Care Team Providers Care Interim Controller Name Role Phone Niru Crawford Primary Care Provider [phone] Allergies Active Allergy Reactions Criticality Noted Date [...] (IM) Preservative Free 09/18/2016,07/12 Influenza, Injectable, [place] Canine Kidney, Preservative Free 09/01/2013 Influenza, MDCK, [...] Visit [facility] [place], [address] [place] [address] Juan Yee MD [address] [facility] [place] [address] Health Maintenance Due Date Last Done [...] 48 Years) Discontinued 09/22/2019, 09/04/2010, 08/18/2008 Insurance [employer] Care Teams Interim Controller Relationship Specialty Start Date End Date Niru Crawford [address] [place] [address] PCP - General 11/08/24
--- OUTSIDE RECORDS SUMMARY | 2025-07-04 14:32 | XMS_ITS | Patient Health Record ---
Author Organization [facility] Address [address] [place] [address] Care Team Providers Care Financial Services Director Name Role Phone JESSE HASSAN PA-C Primary Care Provider Hank Palomo Unavailable [phone] Allergies Allergen (clinical drug ingredient) Drug/Non Drug [...] 2013; uses medical marijuana from dispensary in [place] for apetitie stimulant, anxiety/depression, and pain relief. Smokes 2 cigs QD Recovering alcoholic--heavy until 2009--reports occ. lapses, but last time was 2014; substance abuse with previous IVDA-none since 2014; uses medical marijuana from dispensary in [place] for apetitie stimulant, anxiety/depression, and pain relief. Smokes 2 cigs QD. Recovering alcoholic--heavy until 2009--reports occ. lapses, but last time was 2014; substance abuse with previous IVDA-none since 2014; uses medical marijuana from dispensary in [place] for apetitie stimulant, anxiety/depression, and pain relief. Smokes 2 cigs QD. Problems Problem Type SNOMED Code ICD Code Onset Dates Problem Status W/U Status Risk Notes Problem 411934686 Colon cancer screening (Z12.11) Active confirmed Problem Diverticular disease of colon (778418895) Diverticulosis of large intestine without perforation or abscess without bleeding (K57.30) Active confirmed Problem 590016077 Elevated liver function tests (R79.89) Active confirmed Problem Chronic gastritis (9539686) Gastritis, chronic (K29.50) Active confirmed Problem 17354977 Erosive esophagitis (K22.10) Active confirmed Problem Gastritis (4875278) Gastritis (K29.70) Active confirmed Problem 106888809 Abnormal CT scan , esophagus (R93.3) Active confirmed Problem 479779327 Idiopathic acute pancreatitis without infection or necrosis (K85.00) Active confirmed Problem Gastroesophageal reflux disease with esophagitis (disorder) (661555107) Gastro-esophageal reflux disease with esophagitis, without bleeding [...] Medicaid [address] [place] [address] [id number] GRAHAM MCINTOSH Self - patient is the insured MEDICAID OF [facility] [address] [place] [phone] [id number] GRAHAM MCINTOSH Self - patient is the insured Medical (General) History Medical History History ICD Code IDDM--has an Insulin pump Denies OR,CVA,Lung disease,renal disease Anxiety/Depression/PTSD Arthritis Substance and alcohol [...]
== END 2025-07-04 11:37 | disposition home or self-care (01) ==
LOC: HO.XRAY 11:36
PROVIDERS: Visit Provider Internal Medicine
DX: M50.321 Other cervical disc degeneration at C4-C5 level (principal); M43.16 Spondylolisthesis, lumbar region
CPT/HCPCS: 72052; 72120

== ENCOUNTER → 2025-07-04 11:38 | Outpatient (BNV) | payer MEDICAID, SELFPAY | PROVIDERS: Visit Provider Radiology Diagnostic Radiology | DX: M50.321 Other cervical disc degeneration at C4-C5 level (principal); M43.16 Spondylolisthesis, lumbar region | CPT/HCPCS: 72052; 72120 ==

== ENCOUNTER 2025-07-19 19:48 | Emergency (ER) | payer MEDICAID, SELFPAY ==
[2025-07-19 20:09] VITALS: BP 147/75; BP 156/90; PULSE 86; PULSE 90; RESP 18; TEMP 36.8; O2SAT 98; O2SAT 99; BMI 22.5
[2025-07-19 20:19] LABS: Glucose, Whole Blood 79 mg/dL (60-115)
[2025-07-19 20:51] LABS: MANUAL DIFF FLAG NO
[2025-07-19 20:54] LABS: Hematocrit 40.5 % (42.0-52.0); Hemoglobin 14.2 g/dl (14.0-18.0); Imm Gran Abs Auto 0.01 X10*3/uL (0.00-0.03); Imm Gran Pct Auto 0.2 % (0.0-0.4); Lymphocytes Absolute Auto 2.5 X10*3/uL (1.2-4.9); Mean Corpuscular HGB Conc 35.1 g/dl (31.0-36.0); Mean Corpuscular Hemoglobin 36.9 pg (27.0-33.0); Mean Corpuscular Volume 105.2 fL (80.0-98.0); NRBC Abs Auto 0.000 X10*3/uL (0.0-0.012); NRBC Pct Auto 0.0 /100WBC (0.0-0.2); Platelet Count 132 X10*3/uL (160-400); Red Blood Count 3.85 X10*6/uL (4.60-5.80); White Blood Count 6.4 X10*3/uL (4.8-10.8)
[2025-07-19 21:08] LABS: Alanine Aminotransferase 39 U/L (0-40); Albumin Level 4.0 g/dL (3.5-5.0); Alkaline Phosphatase 134 U/L (39-117); Anion Gap 16 (12-20); Aspartate Amino Transferase 56 U/L (5-37); Blood Urea Nitrogen 13 mg/dL (9-16); Calcium 8.8 mg/dL (8.4-10.2); Carbon Dioxide 27 mmol/L (22-29); Chloride 109 mmol/L (96-108); Creatinine Clr Calc Pharmacy 100.4; Estimated Glomerular Filt Rate > 60; Magnesium 1.9 mg/dL (1.6-2.6); Potassium 3.5 mmol/L (3.3-5.1); Sodium 148 mmol/L (135-145); Total Protein 6.3 g/dL (6.5-8.0)
--- NOTE | 2025-07-19 21:21 | PC.NURSE ---
pt biba from home, a&ox4, respirations even and unlabored. pt reports dizziness x1 day and reports his dexcom was reading sugars of 60-500.pt reports pt insulin pump ran out and he replaced it one day late. on arrival pt poc 79 and reports chronic back pain. pt given food and drink by EVELIA marsh, awaiting lab results.
--- NOTE | 2025-07-19 21:34 | ED.GENADULT ---
HPI - General Adult General Chief complaint: Dizziness Stated complaint: sugar difficulty POC for EMS 120 Time Seen by Provider: 07/19/25 20:21 Source: patient Limitations: other (Intoxication) History of Present Illness ED Provider: Garima Castillo PA-C HPI narrative: 49-year-old male with a history of diabetes with an insulin pump in place, hypertension, chronic pain, GERD, alcohol use disorder, polysubstance abuse who presents with concern for hyperglycemia. Patient states his meter at home was reading up to 500 today. Admits to ongoing alcohol use, denies recent cough cold symptoms fevers or dysuria. Related Data Home Medications ?Medication ?Instructions ?Recorded ?Confirmed clonazepam 0.5 mg tablet 0.5 mg PO BEDTIME Anxiety 07/16/21 07/28/25 subcutaneous insulin pump (Tandem 12/29/24 05/10/25 Mobi System) cholecalciferol (vitamin D3) 25 25 mcg PO DAILY 01/16/25 07/28/25 mcg (1,000 unit) tablet 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,digital project coordinator,cont 05/10/25 05/10/25 (Dexcom G6 Policy Loan Calculator) folic acid 1 mg tablet 1 mg PO DAILY 05/16/25 07/28/25 omeprazole 40 mg capsule,delayed 40 mg PO DAILY 05/16/25 07/28/25 release thiamine HCl (vitamin B1) 100 mg 100 mg PO DAILY 05/16/25 07/28/25 tablet baclofen 10 mg tablet 10 mg PO BID muscle spasm 07/28/25 07/28/25 gabapentin 400 mg capsule 400 mg PO BID pain (scale score 07/28/25 07/28/25 4-6) Previous Rx's ?Medication ?Instructions ?Recorded insulin syringe-needle U-100 0.3 #150 ea 08/29/20 mL 29 gauge x 1/2 (BD Insulin Syringe) pen needle, diabetic 32 gauge x #50 ea 08/29/20 5/32 (BD Felisha 2nd Gen Pen Needle) 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 meter (FreeStyle #1 ea 10/22/22 Lite Meter kit) blood sugar diagnostic (FreeStyle #300 ea 02/19/23 Lite Strips) lancets 28 gauge (FreeStyle #100 ea 02/19/23 Lancets) acetone (urine) test (Ketone Urine #25 ea 11/02/24 Test strips) insulin lispro 100 unit/mL See Rx Instructions .Route 02/22/25 subcutaneous solution .COMPLEX #30 mL lidocaine 5 % topical patch 1 patch topical DAILY PRN pain #30 03/04/25 (Lidoderm) ea meloxicam 7.5 mg tablet 7.5 mg PO DAILY #20 tabs 03/14/25 acetaminophen 325 mg capsule 650 mg (2 x 325 mg) PO Q6H PRN 07/31/25 pain, mild #90 caps amlodipine 5 mg tablet 5 mg PO DAILY #90 tabs 07/31/25 cefuroxime axetil 500 mg tablet 500 mg PO Q12H #6 tabs 07/31/25 clonidine HCl 0.1 mg tablet 0.1 mg PO BID #60 tabs 07/31/25 lisinopril 40 mg tablet 40 mg PO DAILY #90 tabs 07/31/25 oxycodone 5 mg capsule 5 mg PO TID PRN pain (scale score 07/31/25 7-10) #15 caps Allergies Allergy/AdvReac Type Severity Reaction Status Date / Time hydroxyzine (From [facility]IST[facility]) Allergy Intermediate RASH, Verified 07/28/25 14:01 ANXIOUS quetiapine (Seroquel) AdvReac Intermediate Unknown Verified 07/28/25 14:01 Review of Systems Review of Systems: Unable to obtain as the patient is hostile and belligerent Yes all other systems are reviewed and are negative [facility] Past Medical History Attestation statement: The following information was validated with the patient. Medical History HTN (hypertension) Constipation History of methadone use Intravenous drug user Peripheral vascular disease Elevated liver function tests Polysubstance abuse Osteoarthritis Type 1 diabetes History of drug abuse Depression Vitamin D deficiency 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 Mother No problems noted. Social History Social History Household Members: Family Household Members Other:: mother Housing: House Do you presently have visiting nurse or other home services: No Alcohol intake: never Patient Tobacco Use Status: Current someday Tobacco user Tobacco use type: Cigarette Cigarettes Per Day: 3 Years Smoked: 33 e-Cigarette/Vaping Use: Currently Using Second Hand Smoke Exposure: No Substance Use Type: Marijuana Advance Directives Date on File: 08/29/20 service: No Current occupational status: unemployed Physical Exam ED Vital Signs: Vital Signs - 24 hr 07/19/25 20:09 Temperature 98.3 F Pulse Rate 86 Respiratory Rate 18 Blood Pressure 147/75 H Pulse Oximetry 98 Oxygen Delivery Method Room Air BMI result Body Mass Index 22.5 Const Other: Awake appears older than stated age Orientation/consciousness: patient oriented x3 HENMT Other: Alcohol halitosis Resp Effort & Inspection: normal respiratory effort Cardio Other: Normal peripheral perfusion Skin Other: Warm dry no rash Neuro General: patient oriented x3, gait normal, no focal motor deficits and CN's II-XI intact bilaterally Psych Other: Hostile belligerent Course Reevaluation(s) Reevaluation #1: The patient's blood sugar dropped from his initial point of care, this is after I asked him to shut the pump off and we gave him food to eat, the patient is manipulating his insulin pump, I again asked him to remove the device, he is becoming further hostile and belligerent demanding to be discharged, he is clinically sober with a steady gait, normal speech, I am having him leave against medical advice Medical Decision Making Medical Decision Making MDM Narrative: 49-year-old male with a history of diabetes with an insulin pump in place, hypertension, chronic pain, GERD, alcohol use disorder, polysubstance abuse who presents with concern for hyperglycemia. Patient states his meter at home was reading up to 500 today. Admits to ongoing alcohol use, denies recent cough cold symptoms fevers or dysuria. Problem: Alcohol use disorder, polysubstance abuse, diabetes History: Per patient which is limited I have considered the following differential diagnoses: Insulin reaction, DKA, HHS, dysfunction of insulin pump Plan: The patient is not hyperglycemic, his blood sugar is 79. I am asking the patient to shut off the monitor while he is here in the ED. He was found to have several nips of vodka in his pants. We have taken them. We will be giving the patient something to eat. Doubtful to be DKA given he is not hyperglycemic. We will screen basic labs including a beta hydroxy and ethanol with drug screen. I have independently reviewed the following tests: Labs: Patient appears dry, blood sugar 79 then 70, no leukocytosis, not anemic, stable thrombocytopenia, beta hydroxy 0.04, ethanol 368, drug screen not obtained Differential Diagnosis Differential Diagnoses: The differential diagnosis associated with the presentation includes See medical decision-making Admission/Observation Consideration of admission/observation: Escalation of care including admission/observation considered Not applicable Lab Data MDM Lab Attestation statement: I reviewed the patient's lab results. 07/19/25 20:47 07/19/25 20:47 Labs: Lab Results 07/19/25 07/19/25 Range/Units 20:14 20:47 WBC 6.4 (4.8-10.8) X10*3/uL RBC 3.85 L (4.60-5.80) X10*6/uL Hgb 14.2 (14.0-18.0) g/dl Hct 40.5 L (42.0-52.0) % MCV 105.2 H (80.0-98.0) fL MCH 36.9 H (27.0-33.0) pg MCHC 35.1 (31.0-36.0) g/dl RDW 12.7 (11.0-16.0) % Plt Count 132 L (160-400) X10*3/uL MPV 10.1 (9.4-12.4) fL Immature Gran % (Auto) 0.2 (0.0-0.4) % Neut % (Auto) 45.5 (45-73) % Lymph % (Auto) 38.3 (20-40) % Bledsoe % (Auto) 11.4 H (2-11) % Eos % (Auto) 3.7 (0-4) % Baso % (Auto) 0.9 (0-2) % Lymph # (Auto) 2.5 (1.2-4.9) X10*3/uL Bledsoe # (Auto) 0.7 (0.1-1.2) X10*3/uL Eos # (Auto) 0.2 (0.0-0.4) X10*3/uL Baso # (Auto) 0.1 (0.0-0.2) X10*3/uL Abs Immat Gran (auto) 0.01 (0.00-0.03) X10*3/uL Absolute Neuts (auto) 2.9 (2.0-8.3) x10*3/uL Absolute Nucleated RBC 0.000 (0.0-0.012) X10*3/uL Nucleated RBC % (auto) 0.0 (0.0-0.2) /100WBC Sodium 148 H (135-145) mmol/L Potassium 3.5 (3.3-5.1) mmol/L Chloride 109 H (96-108) mmol/L Carbon Dioxide 27 (22-29) mmol/L Anion Gap 16 (12-20) BUN 13 (9-16) mg/dL Creatinine 0.91 (0.5-1.4) mg/dL Estim Creat Clear Calc 100.4 Estimated GFR > 60 POC Glucose 79 (60-115) mg/dL Random Glucose 70 (60-115) mg/dL Calcium 8.8 (8.4-10.2) mg/dL Magnesium 1.9 (1.6-2.6) mg/dL Total Bilirubin 0.6 (0.0-1.0) mg/dL AST 56 H (5-37) U/L ALT 39 (0-40) U/L Alkaline Phosphatase 134 H (39-117) U/L Total Protein 6.3 L (6.5-8.0) g/dL Albumin 4.0 (3.5-5.0) g/dL Beta-Hydroxybutyrate 0.04 (0.02-0.27) mmol/L Ethyl Alcohol 368 H* mg/dL Discharge Plan Discharge Clinical Impression: Abnormal blood sugar Patient Disposition: Left Against Medical Advice Prescriptions: No Action (DME) insulin syringe-needle U-100 [BD Insulin Syringe] 0.3 mL 29 gauge x 1/2 syringe See Rx Instructions .ROUTE .MEDSUPPLY Qty: 150 5RF Rx Instructions: 4 times a day (DME) pen needle, diabetic [BD Felisha 2nd Gen Pen Needle] 32 gauge x 5/32 needle See Rx Instructions .ROUTE .MEDSUPPLY Qty: 50 4RF Rx Instructions: once a day (DME) 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 meter [FreeStyle Lite Meter] Kit See Rx Instructions .Route Qty: 1 0RF Rx Instructions: As directed-checks 4 X/day insulin lispro 100 unit/mL solution See Rx Instructions .ROUTE .COMPLEX Qty: 30 11RF Rx Instructions: UP TO 100 UNITS DAILY VIA INSULIN PUMP (TANDEM TSLIM x2) (DME) Tandem Mobi System Misc MISCELLANEOUS Rx Instructions: UP TO 100 UNITS INSULIN LISPRO DAILY VIA PUMP meloxicam 7.5 mg tablet 7.5 mg PO DAILY Qty: 20 0RF thiamine HCl (vitamin B1) 100 mg tablet 100 mg PO DAILY folic acid 1 mg tablet 1 mg PO DAILY omeprazole 40 mg capsule,delayed release(DR/EC) 40 mg PO DAILY gabapentin 400 mg capsule 400 mg PO BID baclofen 10 mg tablet 10 mg PO BID Rx Instructions: Do not take this medication before driving or going to work, it may make you feel drowsy. clonidine HCl 0.1 mg Tablet 0.1 mg PO BID Qty: 60 0RF Protocol: Hold for SBP< HOLD for SBP < : 90 Rx Instructions: Take one tablet twice a day for hypertension amlodipine 5 mg Tablet 5 mg PO DAILY Qty: 90 0RF Protocol: Hold for SBP< HOLD for SBP < : 90 Rx Instructions: Take one tablet daily for hypertension lisinopril 40 mg Tablet 40 mg PO DAILY Qty: 90 0RF Protocol: Hold for SBP< HOLD for SBP < : 90 Rx Instructions: Take one tablet twice a day for hypertension oxycodone 5 mg capsule 5 mg PO TID PRN (Reason: pain (scale score 7-10)) Qty: 15 0RF Rx Instructions: Partial Fill upon patient request. Take one tablet up to three times a day for severe pain. acetaminophen 325 mg capsule 650 mg PO Q6H PRN (Reason: pain, mild) Qty: 90 0RF Rx Instructions: Take two capsules up to four times a day for mild pain cefuroxime axetil 500 mg tablet 500 mg PO Q12H Qty: 6 0RF Rx Instructions: Take 1 tablet twice a day with food for the next 3 days, starting the morning of 08/01 and ending the evening of 08/03 cholecalciferol (vitamin D3) 25 mcg (1,000 unit) tablet 25 mcg PO DAILY lidocaine [Lidoderm] 5 % adhesive patch,medicated 1 patch topical DAILY MDD remove after 12 hours PRN (Reason: pain) Qty: 30 0RF Rx Instructions: leave on most painful area for up to 12 hrs clonazepam 0.5 mg tablet 0.5 mg PO BEDTIME Rx Instructions: AT BEDTIME (DME) FreeStyle Lite Strips Strip See Rx Instructions .ROUTE .MEDSUPPLY Qty: 300 11RF Rx Instructions: 4x daily (DME) lancets [FreeStyle Lancets] 28 gauge misc See Rx Instructions .Route Qty: 100 5RF Rx Instructions: As directed 4 X/day (DME) Ketone Urine Test Strip See Rx Instructions .ROUTE .MEDSUPPLY Qty: 25 1RF Rx Instructions: prn tid for nausea, vomiting, illness, glucose remaining over 250 (DME) Dexcom G6 Policy Loan Calculator Misc See Rx Instructions .Route Rx Instructions: As directed Stand Alone Forms: Against Medical Advice Interventions: ED Discharge Assessment Last Done: 07/19/25 21:40 Discharge Date/Time: 07/19/25 21:41 Print Language: Montserratian
--- NOTE | 2025-07-19 21:39 | PC.NURSE ---
EVELIA Castillo at bedside with pt. pt refusing to allow RN to place IV, pt screaming he wants dilaudid or he is going to [facility]. pt states he is going to leave AMA at this time. Security at bedside for escort out of ed
[2025-07-19 21:40] VITALS: BP 147/75; PULSE 86; RESP 18; TEMP 36.8; O2SAT 98
== END 2025-07-19 21:41 | disposition left against medical advice (07) ==
PROVIDERS: Physician Assistant Medical; Emergency Provider Emergency Medicine
DX: R42 Dizziness and giddiness (principal); E11.9 Type 2 diabetes mellitus without complications; I10 Essential (primary) hypertension; F17.210 Nicotine dependence, cigarettes, uncomplicated; Z96.41 Presence of insulin pump (external) (internal); Z79.899 Other long term (current) drug therapy; Z79.4 Long term (current) use of insulin
CPT/HCPCS: 36415; 80053; 80307; 82010; 82947; 83735; 85025; 99283; 99284

== ENCOUNTER 2025-07-28 13:44 | Inpatient (IN) | payer MEDICAID, SELFPAY ==
--- OUTSIDE RECORDS SUMMARY | 2024-02-04 09:30 | XMS_ITS ---
Author Organization [facility] Address [address] [place] [id number] Care Team Providers Care Railroad Shop Inspector Name Role Phone JESSE HASSAN PA-C Primary Care Provider Unava Hank Pascal Unavailable [phone] Problems Problem Type SNOMED Code ICD Code Onset Dates Problem Status W/U Status Risk Notes Problem Chronic gastritis (8341110) Gastritis, chronic (K29.50) Active confirmed Encounters Encounter Location Date Provider Diagnosis [facility] [address] [place] [phone] 02/04/2024 Hank Stanford Plan Of Treatment No Information Progress Notes * GRAHAM MCINTOSH TDOB: [birth year] (49 yo M)Acc No.[id number]:02/04/2024 EGD/MAC Patient: Gypsy GRAHAM LAM Provider: Gypsy Stanford MD :1975 A ge:48 Y S ex:Male Date:02/04/2024 Address:[address] [place], [place] [phone] Pcp:JESSE HASSAN PA-C Subjective: * Chief Complaints: [...] 0 02/04/2024 Generated for Rahel lieberman/Chema/eTransmitting on: 1 05:53 PM EDT
[2025-07-28] VITALS (10 sets, daily range): BP systolic 152–199; BP diastolic 77–109; PULSE 72–139; RESP 12–26; TEMP 36.8–36.9; O2SAT 74–100; BMI 21.6
--- NOTE | ~2025-07-28 | CT_ITS ---
CLINICAL HISTORY: low back pain CT lumbar spine without contrast Comparison: CR/OR/SR - XR LUMBAR SPINE 2-3 VIEWS BENDING - 07/04/25 12:01 EDT Findings: Normal vertebral body alignment. No acute fractures or dislocations. L5-S1: Chronic L5 bilateral pars defects. Grade 1 anterolisthesis of L5 over S1. Broad-based disc bulge impinging of the S1 nerve roots bilaterally but not on the thecal sac with no significant central canal stenosis and mild bilateral neural foraminal stenosis impinging of the exiting L5 nerve roots. Mild calcified atherosclerotic disease of the abdominal aorta. IMPRESSION: 1. Chronic L5 bilateral pars defects with grade 1 anterolisthesis of L5 over S1. 2. L5-S1 broad-based disc bulge impinging on bilateral S1 nerve roots and exiting L5 nerve roots. 3. Mild bilateral L5-S1 neural foraminal stenosis. 4. No acute fractures or dislocations. This document has been electronically signed by: Gigi Cee MD on 07/28/2025 18:32:33
--- NOTE | ~2025-07-28 | CT_ITS ---
EXAMINATION: CT ANGIOGRAM CHEST CLINICAL INFORMATION: Chest and neck pain. Hypoxia. COMPARISON: None available. TECHNIQUE: Multiple axial images were obtained through the chest after the administration of the mL of Omnipaque 350 intravenous contrast. Extensive vascular post-processing including two-dimensional and three-dimensional reformatted images were created and reviewed on an independent workstation. This CT examination was performed using dose optimization techniques as appropriate, variously including the following: *Automated exposure control *Adjustment of mA and/or kV according to patient size (this includes techniques or standardized protocols for targeted exams where dose is matched to indication/reason for exam; i.e. extremities or head) *Use of iterative reconstruction technique DLP: 232 mGy/cm. Vascular: There is good opacification of pulmonary artery and its branches without intraluminal filling defect or narrowing. The thoracic aorta is of normal caliber . There is a normal three-vessel branching of the arch. No aortic aneurysm or dissection. Heart size is normal. No pericardial effusion seen. Nonvascular: The thyroid lobes are symmetrical and normal. Central trachea and the bronchi are widely patent. The lungs are otherwise are well-expanded and clear acute pneumonic process. No acute consolidation or mass or pulmonary nodule seen. There is no pleural effusion or thickening. No abnormal size exiting lymph nodes seen. The chest wall is unremarkable. There is moderate diffuse thickening of mid and distal esophagus likely esophagitis with a small hiatal hernia No osseous abnormality seen on bone windows. No lytic or sclerotic process seen. CT/CT angio chest PE protocol IMPRESSION: No evidence of PE. No evidence of aortic aneurysm or dissection. Diffuse mural thickening mid and distal esophagus suggestive of inflammatory or reflux esophagitis with likely small hiatal hernia. Underlying lesion cannot be excluded. Correlate with endoscopy. Fleischner guidelines were followed. Electronically signed by: Maurice Graham MD 07/28/2025 04:26 PM EDT
--- NOTE | ~2025-07-28 | CT_ITS ---
CLINICAL HISTORY: sepsis unclear source CT abdomen and pelvis without contrast Comparison: 05/16/2025 01:32 PM EDT: CTSR: CT ABDOMEN PELVIS WITH IV CONTRAST Findings: Hiatal hernia. Hepatomegaly, 20.3 cm. The gallbladder and solid organs are within normal limits. No renal stones. No bowel obstruction, pneumoperitoneum, or pneumatosis. Mild calcified atherosclerotic disease of the abdominal aorta. The appendix is within normal limits. Prostate within normal limits. The bones are intact. IMPRESSION: 1. Hiatal hernia. 2. Mild calcified atherosclerotic disease of the abdominal aorta. 3. No acute intraabdominal or pelvic findings. This document has been electronically signed by: Gigi Cee MD on 07/28/2025 18:30:23
--- NOTE | ~2025-07-28 | XR_ITS ---
EXAMINATION: XR CHEST CLINICAL INFORMATION: cough COMPARISON: December 29, 2024 TECHNIQUE: Frontal view of the chest was obtained. FINDINGS: Hyperinflated lungs. No consolidation, pleural effusion or pneumothorax. Cardiomediastinal silhouette size is small. Mild multilevel thoracic spondylosis. Mild S-shaped curvature. XR/XR chest 1V IMPRESSION: Hyperinflated lungs without acute airspace disease Electronically signed by: Jeffry Royal MD 07/28/2025 03:24 PM EDT
--- NOTE | 2025-07-28 14:03 | ECG_ITS ---
Test Reason : TACHY Blood Pressure : */* mmHG Vent. Rate : 122 BPM Atrial Rate : 122 BPM P-R Int : 146 ms QRS Dur : 78 ms QT Int : 332 ms P-R-T Axes : 80 83 68 degrees QTcB Int : 473 ms Sinus tachycardia Nonspecific ST abnormality Abnormal ECG When compared with ECG of 16-May-2025 10:07, No significant change was found Referred By: Dimas Butler Electronically Signed By: Enrrique Noel
--- NOTE | 2025-07-28 14:06 | ED.NAVMDI ---
HPI - Nausea/Vomiting/Diarrhea General Chief complaint: Nausea/Vomiting/Diarrhea Stated complaint: cough, fever, chills Time Seen by Provider: 07/28/25 14:01 History of Present Illness ED Provider: Dimas Butler MD HPI Narrative: 49-year-old male brought in by home for worsening cough chills back pain vomiting. The patient is attributing his vomiting to severe levels of neck and low back pain these areas of pain or chronic and recurrent he has known degenerative disc disease he tells me in the C-spine and L-spine. He has no direct blow or other injury recently that he can think of. Pain has been escalating over the past week and causes nausea and nonbloody nonbilious vomiting when it gets severe. It denies any red flag symptoms including no lower extremity weakness, incontinence or sensory changes. He has been ambulating well. He tells me smokes about half pack a day but denies wheeze he has had a mild dry cough. Denies subjective fever Related Data Home Medications ?Medication ?Instructions ?Recorded ?Confirmed clonazepam 0.5 mg tablet 0.5 mg PO BEDTIME Anxiety 07/16/21 07/28/25 subcutaneous insulin pump (Tandem 12/29/24 05/10/25 [employer] System) cholecalciferol (vitamin D3) 25 25 mcg PO DAILY 01/16/25 07/28/25 mcg (1,000 unit) tablet 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,industrial welder,cont 05/10/25 05/10/25 (Dexcom G6 Services Engineer) folic acid 1 mg tablet 1 mg PO DAILY 05/16/25 07/28/25 omeprazole 40 mg capsule,delayed 40 mg PO DAILY 05/16/25 07/28/25 release thiamine HCl (vitamin B1) 100 mg 100 mg PO DAILY 05/16/25 07/28/25 tablet baclofen 10 mg tablet 10 mg PO BID muscle spasm 07/28/25 07/28/25 gabapentin 400 mg capsule 400 mg PO BID pain (scale score 07/28/25 07/28/25 4-6) Previous Rx's ?Medication ?Instructions ?Recorded insulin syringe-needle U-100 0.3 #150 ea 08/29/20 mL 29 gauge x 1/2 (BD Insulin Syringe) pen needle, diabetic 32 gauge x #50 ea 08/29/20/32 (BD Felisha 2nd Gen Pen Needle) 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 meter (Corevalus Systemsyle #1 ea 10/22/22 Lite Meter kit) blood sugar diagnostic (FreeStyle #300 ea 02/19/23 Lite Strips) lancets 28 gauge (FreeStyle #100 ea 02/19/23 Lancets) acetone (urine) test (Ketone Urine #25 ea 11/02/24 Test strips) insulin lispro 100 unit/mL See Rx Instructions .Route 02/22/25 subcutaneous solution .COMPLEX #30 mL lidocaine 5 % topical patch 1 patch topical DAILY PRN pain #30 03/04/25 (Lidoderm) ea meloxicam 7.5 mg tablet 7.5 mg PO DAILY #20 tabs 03/14/25 acetaminophen 325 mg capsule 650 mg (2 x 325 mg) PO Q6H PRN 07/31/25 pain, mild #90 caps amlodipine 5 mg tablet 5 mg PO DAILY #90 tabs 07/31/25 cefuroxime axetil 500 mg tablet 500 mg PO Q12H #6 tabs 07/31/25 clonidine HCl 0.1 mg tablet 0.1 mg PO BID #60 tabs 07/31/25 lisinopril 40 mg tablet 40 mg PO DAILY #90 tabs 07/31/25 oxycodone 5 mg capsule 5 mg PO TID PRN pain (scale score 07/31/25 7-10) #15 caps Allergies Allergy/AdvReac Type Severity Reaction Status Date / Time hydroxyzine (From VISTARIL) Allergy Intermediate RASH, Verified 07/28/25 14:01 ANXIOUS quetiapine (Seroquel) AdvReac Intermediate Unknown Verified 07/28/25 14:01 [facility] Past Medical History Medical History HTN (hypertension) Constipation History of methadone use Intravenous drug user Peripheral vascular disease Elevated liver function tests Polysubstance abuse Osteoarthritis Type 1 diabetes History of drug abuse Depression Vitamin D deficiency 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 Mother No problems noted. Social History Social History Household Members: Family Household Members Other:: mother Housing: House Do you presently have visiting nurse or other home services: No Alcohol intake: never Patient Tobacco Use Status: Current someday Tobacco user Tobacco use type: Cigarette Cigarettes Per Day: 3 Years Smoked: 33 e-Cigarette/Vaping Use: Currently Using Second Hand Smoke Exposure: No Substance Use Type: Marijuana Advance Directives Date on File: 08/29/20 service: No Current occupational status: unemployed Physical Exam Exam: Exam: EXAM: Gen: Alert, awake, appears uncomfortable no respiratory distress speaking full sentences Head: Atraumatic Eyes: Anicteric, Normal conjunctiva. ENT: Moist mucosa, no pallor. ? Neck: Supple. No significant midline neck tenderness neck is supple Skin: ?No observable rash or bruising on exposed or examined skin Respiratory: Breathing comfortably, No distress.Clear to auscultation bilaterally, symmetric chest expansion, No wheeze, rales, ronchi. Cardiovascular: Tachycardic 130s. No murmurs or rub. Well perfused periphery, warm extremities. No edema. ? Abdominal: No focal tenderness. Soft, no objective distension. No palpable masses or obvious organomegaly. ?No guarding, no rebound tenderness or other peritoneal findings. : No flank tenderness. Neuro: Alert. Gross movement of all extremities intact. ? Psych: Calm. Cooperative. MSK: No grossly visible deformity. Mild paraspinal low back tenderness no bruising no step-offs. Vital signs: See flowsheet Vital Signs: Vital Signs: Last Vital Signs Temp 97.7 F 07/31/25 12:00 Pulse 70 07/31/25 14:46 Resp 18 07/31/25 12:00 BP 148/80 H 07/31/25 14:46 Pulse Ox 98 07/31/25 12:00 O2 Del Method Room Air 07/31/25 12:00 O2 Flow Rate 3 07/28/25 18:20 BMI result Body Mass Index 21.6 Course Reevaluation(s) Reevaluation #1: Approximately 14: (Dr. Dimas Butler): My colleague responded to a monitor alarm in the around the patient had a saturation with a good plus and waveform of approximately 74% the patient was on room air at that time and placed on 3 L nasal cannula no wheezing or significant distress was noted Medications Administered Discontinued Medications Generic Name Dose Route Start Last Admin Trade Name Marloq PRN Reason Stop Dose Admin Acetaminophen 650 mg 07/30/25 11:00 07/31/25 12:08 Acetaminophen 325 Mg Tablet PO 650 mg Q6H ASHLEIGH Administration Amlodipine Besylate 5 mg 07/30/25 09:00 07/31/25 09:08 Amlodipine Besylate 5 Mg Tablet PO 5 mg DAILY ASHLEIGH Administration Protocol Baclofen 10 mg 07/29/25 09:00 07/31/25 09:07 Baclofen 10 Mg Tablet PO 10 mg BID ASHLEIGH Administration Ceftriaxone Sodium 1 gm 07/28/25 14:03 07/28/25 14:32 Ceftriaxone Sodium 1 Gm Vial IVPUSH 07/28/25 14:04 1 gm ONCE ONE Administration Ceftriaxone Sodium 1 gm 07/29/25 14:00 07/30/25 14:43 Ceftriaxone Sodium 1 Gm Vial IVPUSH 1 gm Q24H ASHLEIGH Administration Clonazepam 0.5 mg 07/29/25 21:00 07/30/25 21:38 Clonazepam 0.5 Mg Tablet PO 0.5 mg BEDTIME ASHLEIGH Administration Clonidine HCl 0.1 mg 07/28/25 18:54 07/28/25 19:14 Clonidine Hcl 0.1 Mg Tablet PO 07/28/25 18:55 0.1 mg ONCE ONE Administration Protocol Clonidine HCl 0.1 mg 07/29/25 09:00 07/30/25 09:15 Clonidine Hcl 0.1 Mg Tablet PO 0.1 mg DAILY ASHLEIGH Administration Protocol Clonidine HCl 0.1 mg 07/30/25 21:00 07/31/25 09:08 Clonidine Hcl 0.1 Mg Tablet PO 0.1 mg BID ASHLEIGH Administration Protocol Enoxaparin Sodium 40 mg 07/28/25 21:00 07/30/25 21:37 Enoxaparin Sodium 40 Mg/0.4 Ml Syringe SUBCUT 40 mg Q24H ASHLEIGH Administration Fentanyl 50 mcg 07/28/25 17:07 07/28/25 17:32 Fentanyl Citrate/Pf 100 Mcg/2 Ml Vial IVPUSH 07/28/25 17:08 50 mcg ONCE ONE Administration Protocol Folic Acid 1 mg 07/30/25 09:00 07/31/25 09:07 Folic Acid 1 Mg Tablet PO 1 mg DAILY ASHLEIGH Administration Gabapentin 400 mg 07/29/25 09:00 07/31/25 09:07 Gabapentin 400 Mg Capsule PO 400 mg BID ASHLEIGH Administration Hydralazine HCl 5 mg 07/31/25 13:54 07/31/25 14:06 Hydralazine Hcl 20 Mg/Ml Vial IVPUSH 07/31/25 13:55 5 mg ONCE ONE Administration Protocol Hydromorphone HCl 1 mg 07/28/25 14:18 07/28/25 14:32 Hydromorphone Hcl 1 Mg/Ml Syringe IVPUSH 07/28/25 14:19 1 mg ONCE ONE Administration Protocol Hydromorphone HCl 1 mg 07/28/25 21:00 07/30/25 09:10 Hydromorphone Hcl 2 Mg/Ml Vial IVPUSH 1 mg Q4H PRN Administration Pain, Severe (Pain Scale 7-10) Protocol Hydromorphone HCl 0.5 mg 07/30/25 11:27 07/31/25 03:55 Hydromorphone Hcl 0.5 Mg/0.5 Ml Syringe IV 0.5 mg Q6H PRN Administration Pain, Severe (Pain Scale 7-10) Protocol Lactated Ringer's 1,000 mls @ 999 mls/hr 07/28/25 14:15 07/28/25 16:00 Lr IV 07/28/25 16:15 Infused .Q1H1M ASHLEIGH Infusion Acetaminophen 1,000 mg in 100 mls @ 400 mls/hr 07/28/25 14:18 07/28/25 15:15 Ofirmev IV 07/28/25 14:32 Infused ONCE ONE Infusion Lactated Ringer's 500 mls @ 1,000 mls/hr 07/28/25 15:30 07/28/25 17:39 Lr IV 07/28/25 15:59 Infused .Q30M ASHLEIGH Infusion Vancomycin HCl 1,000 mg/ 535 mls @ 267.5 mls/hr 07/28/25 15:23 07/28/25 18:38 Vancomycin HCl 750 mg/ Sodium IV 07/28/25 17:22 Infused Chloride ONCE ONE Infusion Dextrose/Sodium Chloride 1,000 mls @ 100 mls/hr 07/28/25 21:15 07/29/25 10:17 D51/2ns IVCONT Infused .Q10H ASHLEIGH Infusion Thiamine HCl 100 mg/ Sodium 101 mls @ 202 mls/hr 07/29/25 09:00 07/29/25 09:03 Chloride IV Infused DAILY ASHLEIGH Infusion Folic Acid 1 mg/ Sodium 50.2 mls @ 100.4 mls/hr 07/29/25 09:00 07/29/25 10:06 Chloride IV Infused DAILY ASHLEIGH Infusion Insulin Human Lispro 0 unit 07/29/25 07:30 07/29/25 16:35 Insulin Lispro 100 Unit/Ml 3 Ml Vial SUBCUT Not Given [facility] Protocol Insulin Pump 1 each 07/29/25 16:30 07/31/25 12:10 Subcutaneous Insulin Pump SUBCUT 1 each QIDACHS [facility] Administration Protocol Iohexol 100 ml 07/28/25 16:08 07/28/25 16:09 Iohexol 350 Mg/Ml 100 Ml Infus..Btl IV 07/28/25 16:09 65 ml ONCE ONE Administration Lidocaine 1 patch 07/28/25 17:44 07/28/25 18:18 Lidocaine 4 % Patch Adh..Patch TRANSDERMA 07/28/25 17:45 1 patch ONCE ONE Administration Protocol Lisinopril 20 mg 07/29/25 09:00 07/29/25 08:30 Lisinopril 20 Mg Tablet PO 20 mg DAILY [facility] Administration Protocol Lisinopril 40 mg 07/30/25 09:00 07/31/25 09:08 Lisinopril 40 Mg Tablet PO 40 mg DAILY [facility] Administration Protocol Methylprednisolone Sodium Succinate 40 mg 07/28/25 17:19 07/28/25 17:33 Methylprednisolone Sod Succ 40 Mg/Ml Vial IVPUSH 07/28/25 17:20 40 mg ONCE ONE Administration Naloxone HCl 8 mg 07/31/25 13:31 07/31/25 15:56 Naloxone Hcl Nasal Take Home 4 Mg [place] NOSTRILALT 07/31/25 13:32 8 mg ONCE ONE Administration Naproxen 250 mg 07/29/25 09:00 07/31/25 09:07 Naproxen 250 Mg Tablet PO 250 mg BID ASHLEIGH Administration Nicotine 14 mg 07/28/25 21:00 07/31/25 09:09 Nicotine 14 Mg Patch.Td24 TRANSDERMA 14 mg DAILY [facility] Administration Ondansetron HCl 4 mg 07/28/25 14:03 07/28/25 14:32 Ondansetron Hcl 4 Mg/2 Ml Vial IVPUSH 07/28/25 14:04 4 mg ONCE ONE Administration Oxycodone HCl 5 mg 07/30/25 10:50 07/31/25 12:07 Oxycodone Hcl Immed Release 5 Mg Tablet PO 5 mg Q6H PRN Administration Pain, Moderate(Pain Scale 4-6) Pantoprazole Sodium 40 mg 07/28/25 21:45 07/31/25 05:31 Pantoprazole Sodium 40 Mg/10 Ml Vial IVPUSH 40 mg BID@0630,1630 ASHLEIGH Administration Potassium Chloride 40 meq 07/30/25 15:15 07/30/25 18:37 Potassium Chloride Packet 20 Meq Packet PO 07/30/25 17:16 40 meq Q2H ASHLEIGH Administration Senna 17.2 mg 07/28/25 21:00 07/30/25 21:37 Sennosides 8.6 Mg Tablet PO 17.2 mg BEDTIME ASHLEIGH Administration Sodium Chloride 3 ml 07/29/25 00:00 07/31/25 09:09 0.9 % Sodium Chloride Flush 3 Ml Syringe IVFLUSH 3 ml QSHIFT ASHLEIGH Administration Thiamine HCl 100 mg 07/30/25 09:00 07/31/25 09:07 Thiamine Hcl 100 Mg Tablet PO 100 mg DAILY ASHLEIGH Administration Vitamin D 25 mcg 07/29/25 09:00 07/31/25 09:09 Cholecalciferol (Vitamin D3) 25 Mcg Tablet PO 25 mcg DAILY ASHLEIGH Administration Medical Decision Making Medical Decision Making MDM Narrative: Medical Decision Makin-year-old male smoker with chronic neck and low back pain with recurrence slightly more severe than normal. No red flag signs symptoms or historical factors to suggest spinal epidural abscess or acute cord compression or cauda equina syndrome. The patient has known degenerative disc disease. He is vomiting is personally attributed to the level of pain in the back and neck particularly the back and he has no abdominal pain. He denies IV drug use. He is afebrile though has leukocytosis and tachycardia and also developed hypoxia while in the ED as low as the 70s and was put on 3 L nasal cannula. Initial suspicion was for musculoskeletal/DJD etiology back pain with vomiting however he did flag for sepsis given the leukocytosis tachycardia and the possibility of an underlying infection though not felt to be ONLINE RETAILER. We did pursue chest imaging to exclude pneumonia, PE. Chest CT has excluded these. Abdomen again reexamined soft nontender and there was no clear obvious alternative skin or viral source. Given the history and examination suspicion remains quite low for ONLINE RETAILER infection but probably reasonable to exclude occult intra-abdominal infection and we will get a CT of the lumbar spine while or doing this. He has received IV fluids given elevated lactate meeting severe sepsis criteria if he indeed does have sepsis. Blood cultures drawn and sent. Antibiotics provided inappropriate timing. There is a possibility the patient had transient hypoxia from opioid however he was not sedated at the time of this is less likely Preliminary Favored Differential Diagnosis: Intractable back pain, DJD, disc herniation, unlikely diskitis ONLINE RETAILER infection or spinal epidural abscess, pneumonia, UTI, intra-abdominal infection, acute hypoxic respiratory failure, PE, COPD or bronchitis or asthma exacerbation though he does not appear to be wheezing among additional considered etiologies Testing Interpreted Independently: ECG: Sinus tachycardia rate 122 QTC 473 no acute ischemic changes. Possibly rate related very subtle ST depressions V4 through V6 no ST elevation Radiology or Lab testing Results Reviewed: ?CT with chronic lumbar degenerative changes, atherosclerosis of the abdominal aorta without acute infection or trauma, chest x-ray and chest CT excluding PE or infiltrate Consults: ?See below for details Independent Historians/External Chart Reviews: ?See below for details Social Determinants of Health Impacting MDM/Planning: ?See below for details Lab Data 07/31/25 05:32 07/31/25 05:32 Labs: Lab Results 07/28/25 07/28/25 07/28/25 Range/Units 14:20 17:01 17:27 WBC 16.7 H (4.8-10.8) X10*3/uL RBC 4.76 D (4.60-5.80) X10*6/uL Hgb 17.0 (14.0-18.0) g/dl Hct 47.4 (42.0-52.0) % MCV 99.6 H (80.0-98.0) fL MCH 35.7 H (27.0-33.0) pg MCHC 35.9 (31.0-36.0) g/dl RDW 12.3 (11.0-16.0) % Plt Count 209 D (160-400) X10*3/uL MPV 9.8 (9.4-12.4) fL Immature Gran % (Auto) 0.5 H (0.0-0.4) % Neut % (Auto) 78.4 H (45-73) % Lymph % (Auto) 10.3 L (20-40) % [place] % (Auto) 10.5 (2-11) % Eos % (Auto) 0.0 (0-4) % Baso % (Auto) 0.3 (0-2) % Lymph # (Auto) 1.7 (1.2-4.9) X10*3/uL [place] # (Auto) 1.8 H (0.1-1.2) X10*3/uL Eos # (Auto) 0.0 (0.0-0.4) X10*3/uL Baso # (Auto) 0.1 (0.0-0.2) X10*3/uL Abs Immat Gran (auto) 0.08 H (0.00-0.03) X10*3/uL Absolute Neuts (auto) 13.1 H (2.0-8.3) x10*3/uL Absolute Nucleated RBC 0.000 (0.0-0.012) X10*3/uL Nucleated RBC % (auto) 0.0 (0.0-0.2) /100WBC Smear Tech's Comments VERIFIED PT 12.8 H (10.9-12.4) SEC INR 1.1 (0.9-1.1) APTT 24.4 L (26.7-34.1) SEC Sodium 153 H 148 H (135-145) mmol/L Potassium 3.5 4.4 D (3.3-5.1) mmol/L Chloride 96 100 (96-108) mmol/L Carbon Dioxide 35 H 34 H (22-29) mmol/L Anion Gap 26 H 18 (12-20) BUN 16 18 H (9-16) mg/dL Creatinine 1.26 1.17 (0.5-1.4) mg/dL Estim Creat Clear Calc 69.7 75.1 Estimated GFR > 60 > 60 Random Glucose 99 76 (60-115) mg/dL Lactic Acid 5.9 H* 2.0 (0.5-2.0) mmol/L Lactic Acid F/U @ 2Hr 2.4 H* (0.5-2.0) mmol/L Lactic Acid F/U @ 4Hr (0.5-2.0) mmol/L Calcium 9.8 D 8.6 D (8.4-10.2) mg/dL Magnesium 1.6 (1.6-2.6) mg/dL Total Bilirubin 1.1 H (0.0-1.0) mg/dL Procalcitonin 0.03 ng/mL TSH 1.47 (0.32-4.0) uIU/mL Urine Color Dark Yellow Urine Appearance Clear Urine pH 7.0 (5.0-9.0) Ur Specific [place] 1.025 (1.005-1.025) Urine Protein 300 (3+) H (Neg-Trace) mg/dL Urine Glucose (UA) Negative (Negative) mg/dL Urine Ketones 15 (Negative) mg/dL Urine Blood Moderate (2+) H (Negative) Urine Nitrite Negative (Negative) Ur Leukocyte Esterase Trace H (Negative) Urine RBC >20 H (0-2) /HPF Urine WBC 0-5 (0-5) /HPF Ur Squamous Epith Cells 3-5 (0-2) /HPF Urine Bacteria None Seen (None Seen) Hyaline Casts 3-5 (0-2) /LPF Ethyl Alcohol 22 mg/dL /17/25 Range/Units 19:12 WBC (4.8-10.8) X10*3/uL RBC (4.60-5.80) X10*6/uL Hgb (14.0-18.0) g/dl Hct (42.0-52.0) % MCV (80.0-98.0) fL MCH (27.0-33.0) pg MCHC (31.0-36.0) g/dl RDW (11.0-16.0) % Plt Count (160-400) X10*3/uL MPV (9.4-12.4) fL Immature Gran % (Auto) (0.0-0.4) % Neut % (Auto) (45-73) % Lymph % (Auto) (20-40) % [place] % (Auto) (2-11) % Eos % (Auto) (0-4) % Baso % (Auto) (0-2) % Lymph # (Auto) (1.2-4.9) X10*3/uL [place] # (Auto) (0.1-1.2) X10*3/uL Eos # (Auto) (0.0-0.4) X10*3/uL Baso # (Auto) (0.0-0.2) X10*3/uL Abs Immat Gran (auto) (0.00-0.03) X10*3/uL Absolute Neuts (auto) (2.0-8.3) x10*3/uL Absolute Nucleated RBC (0.0-0.012) X10*3/uL Nucleated RBC % (auto) (0.0-0.2) /100WBC Smear Tech's Comments PT (10.9-12.4) SEC INR (0.9-1.1) APTT (26.7-34.1) SEC Sodium (135-145) mmol/L Potassium (3.3-5.1) mmol/L Chloride (96-108) mmol/L Carbon Dioxide (22-29) mmol/L Anion Gap (12-20) BUN (9-16) mg/dL Creatinine (0.5-1.4) mg/dL Estim Creat Clear Calc Estimated GFR Random Glucose (60-115) mg/dL Lactic Acid (0.5-2.0) mmol/L Lactic Acid F/U @ 2Hr (0.5-2.0) mmol/L Lactic Acid F/U @ 4Hr 1.5 (0.5-2.0) mmol/L Calcium (8.4-10.2) mg/dL Magnesium (1.6-2.6) mg/dL Total Bilirubin (0.0-1.0) mg/dL Procalcitonin ng/mL TSH (0.32-4.0) uIU/mL Urine Color Urine Appearance Urine pH (5.0-9.0) Ur Specific [place] (1.005-1.025) Urine Protein (Neg-Trace) mg/dL Urine Glucose (UA) (Negative) mg/dL Urine Ketones (Negative) mg/dL Urine Blood (Negative) Urine Nitrite (Negative) Ur Leukocyte Esterase (Negative) Urine RBC (0-2) /HPF Urine WBC (0-5) /HPF Ur Squamous Epith Cells (0-2) /HPF Urine Bacteria (None Seen) Hyaline Casts (0-2) /LPF Ethyl Alcohol mg/dL Critical Care Time Critical Care Time Critical Care Time: Yes Total Critical Care Time: 50 Attestation: ED Critical Care: Authorized and Performed by: Dimas Butler MD Total critical care time: Approximately 50 min Due to a high probability of clinically significant, life threatening deterioration, the patient required my highest level of preparedness to intervene emergently and I personally spent this critical care time directly and personally managing the patient. This critical care time included obtaining a history; examining the patient; pulse oximetry; ordering and review of studies; arranging urgent treatment with development of a management plan; evaluation of patient's response to treatment; frequent reassessment; and, discussions with other providers. This critical care time was performed to assess and manage the high probability of imminent, life-threatening deterioration that could result in multi-organ failure. It was exclusive of separately billable procedures and treating other patients and teaching time. Discharge Plan Discharge Clinical Impression: Hypoxia Patient Disposition: Admitted As Inpatient Interventions: Admission Worksheet (ED) Last Done: 07/29/25 10:19 Discharge Date/Time: 07/29/25 10:19
[2025-07-28] MEDS: Lactated Ringers 1,000 ML 999 ML IV ×2 (14:34→14:39)
[2025-07-28 14:37] LABS: Hematocrit 47.4 % (42.0-52.0); Hemoglobin 17.0 g/dl (14.0-18.0); Imm Gran Abs Auto 0.08 X10*3/uL (0.00-0.03); Imm Gran Pct Auto 0.5 % (0.0-0.4); Lymphocytes Absolute Auto 1.7 X10*3/uL (1.2-4.9); MANUAL DIFF FLAG SCAN; Mean Corpuscular HGB Conc 35.9 g/dl (31.0-36.0); Mean Corpuscular Hemoglobin 35.7 pg (27.0-33.0); Mean Corpuscular Volume 99.6 fL (80.0-98.0); NRBC Abs Auto 0.000 X10*3/uL (0.0-0.012); NRBC Pct Auto 0.0 /100WBC (0.0-0.2); Platelet Count 209 X10*3/uL (160-400); Red Blood Count 4.76 X10*6/uL (4.60-5.80); SCAN SMEAR FLAG 1; White Blood Count 16.7 X10*3/uL (4.8-10.8)
[2025-07-28 14:54] LABS: INTERNATIONAL NORM RATIO 1.1 (0.9-1.1); Prothrombin Time 12.8 SEC (10.9-12.4)
[2025-07-28 14:56] LABS: Partial Thromboplastin Time 24.4 SEC (26.7-34.1)
[2025-07-28 15:03] LABS: Anion Gap 26 (12-20); Blood Urea Nitrogen 16 mg/dL (9-16); Calcium 9.8 mg/dL (8.4-10.2); Carbon Dioxide 35 mmol/L (22-29); Chloride 96 mmol/L (96-108); Creatinine Clr Calc Pharmacy 69.7; Estimated Glomerular Filt Rate > 60; Potassium 3.5 mmol/L (3.3-5.1); Sodium 153 mmol/L (135-145)
[2025-07-28 15:23] LABS: Procalcitonin 0.03 ng/mL
[2025-07-28] MEDS: iohexoL 350 MG/ML 100 ML INFUS..BTL IV (16:09)
[2025-07-28 16:25] LABS: Reflex Lactate? Lactic Acid Added
[2025-07-28] MEDS: vancomycin HCL 1,000 MG, vancomycin HCL 750 MG in 0.9 % Sodium Chloride 500 ML 267.5 MG IV (16:34)
[2025-07-28] MEDS: Lactated Ringers 500 ML 1000 ML IV (16:35)
--- NOTE | 2025-07-28 17:25 | PC.NURSE ---
Pt desatted to 74% on RA. MD Olvera placed pt on 3LNC with improvement
[2025-07-28 17:29] LABS: ~Lactic Acid-LAB USE ONLY 2.4 mmol/L (0.5-2.0)
[2025-07-28 17:42] LABS: Appearance Urine Clear; Glucose Urine UA Negative (Negative); PH 7.0 (5.0-9.0); Specific Gravity - Urine 1.025 (1.005-1.025); UMIC TRIGGER UACC YES
--- OUTSIDE RECORDS SUMMARY | 2025-07-28 17:53 | XMS_ITS | Patient Health Record ---
Author Organization [facility] Address [address] [place] [address] Care Team Providers Care Screen Printing Inspector Name Role Phone JESSE HASSAN PA-C Primary Care Provider Hank Palomo Unavailable [phone] Allergies Allergen (clinical drug ingredient) Drug/Non Drug Allergy documented on EMR Reaction Allergy Type Onset Date Status hydroxyzine Vistaril Unknown Drug Allergy Activ e quetiapine SEROquel Unknown Drug Allergy Active Reason For Referral No Information Medications Medication SIG (Take, Route, Frequency, Duration) Notes Start Date End Date Status Insulin Lispro 100 UNIT/ML Injection; Duration: 30 Acti ve Lisinopril 5 MG Oral; Duration: 90 Active Advair Diskus 250-50 MCG/ACT INHALE 1 PUFF INTO THE LUNGS TWICE DAILY Diagnosis Unavailable Inhalation; Duration: 30 Active Omeprazole 40 MG Oral Act [...] 2013; uses medical marijuana from dispensary in [place] for apetitie stimulant, anxiety/depression, and pain relief. Smokes 2 cigs QD Recovering alcoholic--heavy until 2009--reports occ. lapses, but last time was 2014; substance abuse with previous IVDA-none since 2014; uses medical marijuana from dispensary in [place] for apetitie stimulant, anxiety/depression, and pain relief. Smokes 2 cigs QD. Recovering alcoholic--heavy until 2009--reports occ. lapses, but last time was 2014; substance abuse with previous IVDA-none since 2014; uses medical marijuana from dispensary in [place] for apetitie stimulant, anxiety/depression, and pain relief. Smokes 2 cigs QD. Problems Problem Type SNOMED Code ICD Code Onset Dates Problem Status W/U Status Risk Notes Problem Colon cancer screening (437138332) Colon cancer screening (Z12.11) Active confirmed Problem Diverticular disease of colon (158746838) Diverticulosis of large intestine without perforation or abscess without bleeding (K57.30) Active confirmed Problem Elevated liver enzymes level (922432441) Elevated liver function tests (R79.89) Active confirmed Problem Chronic gastritis (1187438) Gastritis, chronic (K29.50) Active confirmed Problem Erosive esophagitis (03462753) Erosive esophagitis (K22.10) Active confirmed Problem Gastritis (0873828) Gastritis (K29.70) Active confirmed Problem Abnormal CT scan , esophagus (R93.3) Active confirmed Problem Acute pancreatitis (156299599) Idiopathic acute pancreatitis without infection or necrosis (K85.00) Active confirmed Problem Gastroesophageal reflux disease with esophagitis (disorder) (995022929) Gastro-esophageal reflux disease with esophagitis, without bleeding [...] Medicaid [address] [place] [id number] GRAHAM MCINTOSH Self - patient is the insured MEDICAID OF [facility] [address] [place] [address] [phone] [id number] GRAHAM MCINTOSH Self - patient is the insured Medical (General) History Medical History History ICD Code IDDM--has an Insulin pump Denies SD,CVA,Lung disease,renal disease Anxiety/Depression/PTSD Arthritis Substance and alcohol [...]
[2025-07-28 17:57] LABS: Anion Gap 18 (12-20); Blood Urea Nitrogen 18 mg/dL (9-16); Calcium 8.6 mg/dL (8.4-10.2); Carbon Dioxide 34 mmol/L (22-29); Chloride 100 mmol/L (96-108); Creatinine Clr Calc Pharmacy 75.1; Estimated Glomerular Filt Rate > 60; Potassium 4.4 mmol/L (3.3-5.1); Sodium 148 mmol/L (135-145)
[2025-07-28] MEDS: Lidocaine 4 % Patch ADH..PATCH 1 PATCH TRANSDERMA (18:18)
[2025-07-28 19:07] LABS: Reflex Lactate? 2 Y
[2025-07-28 19:30] LABS: ~Lactic Acid-LAB USE ONLY 1.5 mmol/L (0.5-2.0)
--- NOTE | 2025-07-28 20:20 | PHA.MEDREC ---
Pharmacy Consult ? Medication Reconciliation Pharmacy has completed the medication reconciliation. Patient confirmed to be on a Tslim insulin pump. Patient fills pump with insulin lispro and state he usually uses 30 units throughout the day
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
[2025-07-28] MEDS: Dextrose 5 % and 0.45 % NaCl 1,000 ML 100 ML IVCONT (21:12)
--- NOTE | 2025-07-28 21:39 | PC.NURSE ---
Pts girlfriend, Hattie, called for an update. Update provided with pts verbal consent.
--- NOTE | 2025-07-28 21:46 | HO.NURTONUR ---
49 Y M aox4 presents with worsening cough, chills, back pain, and vomiting. Septic on arrival. Septic workup completed. Became hypoxic, 77% RA, and was placed on 3L NC but has since been weaned off of O2 and is currently 96% RA. Has been NSR on the monitor, HR 70's. Being admitted for acute hypoxic respiratory failure, known COPD/emphysema with active tobacco use, chronic back pain and possible alcohol withdrawal. Current CIWA 0. Pt is on Methadone. 20G R FA with D5 1/2NS running at 100ml/hr.
[2025-07-28 21:49] LABS: Magnesium 1.6 mg/dL (1.6-2.6)
[2025-07-29] VITALS (9 sets, daily range): BP systolic 138–189; BP diastolic 77–113; PULSE 58–81; RESP 12–18; TEMP 36.8; O2SAT 92–99; BMI 22.8; BMI 21.8
[2025-07-29 06:24] LABS: Imm Gran Abs Auto 0.08 X10*3/uL (0.00-0.03); Imm Gran Pct Auto 0.6 % (0.0-0.4); MANUAL DIFF FLAG SCAN; NRBC Abs Auto 0.000 X10*3/uL (0.0-0.012); NRBC Pct Auto 0.0 /100WBC (0.0-0.2); PLT CLUMP 1; SCAN SMEAR FLAG 1
[2025-07-29 06:26] LABS: Hematocrit 38.8 % (42.0-52.0); Hemoglobin 13.4 g/dl (14.0-18.0); Lymphocytes Absolute Auto 1.7 X10*3/uL (1.2-4.9); Mean Corpuscular HGB Conc 34.5 g/dl (31.0-36.0); Mean Corpuscular Hemoglobin 35.5 pg (27.0-33.0); Mean Corpuscular Volume 102.9 fL (80.0-98.0); Red Blood Count 3.77 X10*6/uL (4.60-5.80)
[2025-07-29] MEDS: 0.9 % Sodium Chloride Flush 3 ML SYRINGE IVFLUSH ×3 (06:38→15:03)
[2025-07-29 06:41] LABS: Platelet Count 106 X10*3/uL (160-400); White Blood Count 14.2 X10*3/uL (4.8-10.8)
[2025-07-29] MEDS: Dextrose 5 % and 0.45 % NaCl 1,000 ML 100 ML IVCONT (06:44)
[2025-07-29 06:48] LABS: Albumin Level 4.0 g/dL (3.5-5.0); Alkaline Phosphatase 130 U/L (39-117); Aspartate Amino Transferase 57 U/L (5-37); Blood Urea Nitrogen 17 mg/dL (9-16); Calcium 8.4 mg/dL (8.4-10.2); Creatinine Clr Calc Pharmacy 75.1; Estimated Glomerular Filt Rate > 60; Total Protein 6.3 g/dL (6.5-8.0)
[2025-07-29 07:04] LABS: Alanine Aminotransferase 35 U/L (0-40); Anion Gap 15 (12-20); Carbon Dioxide 32 mmol/L (22-29); Chloride 99 mmol/L (96-108); Potassium 3.4 mmol/L (3.3-5.1); Sodium 143 mmol/L (135-145)
--- NOTE | 2025-07-29 08:15 | PC.NURSE ---
Assumed care of pt at 0700. Pt a/ox3, resting quietly on stretcher, speaking in full sentences, respirations even and unlabored, no increased wob/sob noted, maintaining O2 sat >92% on RA w/o difficulty, denies CP, normal sinus on youth nutritional monitor, HR 60s-70s. CIWA 1- denies nausea/vomiting/tremors, mild anxiety but able to rest comfortably. Vitals obtained- BP noted to be 180s/100s. MD notified- pt denies headache/blurry vision- asymptomatic. Pt medicated per DEC with morning medications, including HTN meds. Per MD- monitor BPs after medication administration. BP cycling q15 to monitor.
[2025-07-29] MEDS: Thiamine HCL 100 MG in 0.9 % Sodium Chloride 100 ML 202 MG IV (08:29)
[2025-07-29 09:33] LABS: Glucose, Whole Blood 147 mg/dL (60-115)
--- NOTE | 2025-07-29 09:40 | PC.NURSE ---
BP has decreased to 153/79 after medication administration, MD made aware. BP continues to cycle q15 minutes to monitor for increase/decreasing BP. Call daniels within reach, all needs met at this time.
[2025-07-29 10:36] LABS: Cannabinoid Screen Urine POSITIVE (Not Detect)
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
[2025-07-29 11:41] LABS: Resp Syncy Virus RNA Qual PCR NEGATIVE (Negative); SARS COV2 PCR INHOUSE NEGATIVE (Negative)
[2025-07-29 11:44] LABS: Glucose, Whole Blood 59 mg/dL (60-115)
[2025-07-29 12:35] LABS: Glucose, Whole Blood 91 mg/dL (60-115)
[2025-07-29 16:44] LABS: Glucose, Whole Blood 85 mg/dL (60-115)
--- NOTE | 2025-07-29 17:01 | MHC.RECOVRN ---
Patient had a positive screen for unhealthy alcohol use on admission, subsequently, met with pt to discuss alcohol use, recovery supports, and concerns related to increased risk of alcohol related problems. On [facility] pt was sitting in bed, going through his belongings, attempting to locate his telephone. Pt was in no apparent distress and denies withdrawal symptoms. Patient reports consuming a ?few beers and shots? to help with his unmanaged back pain. He states he is well connected in , has a large network of men to contact, and an sponsor. ?I just didn?t call because I knew it was a bad idea but nothing was helping with the pain. Drinking did?.? Pt states he has had 5 years of continued sobriety, from [id number] and returned to using alcohol after the of his father. He reports other lengths of sobriety after then, but most recently ?dabbling with drinking? to help with pain management. Pt reports receiving 150mg of methadone in the past, ?sometime before 2009, but I weaned myself off 10mg a day for 15 days? Pt denies withdrawal symptoms at the time and denies returning to use since. He also reports admissions at [facility] and [facility] ?where my recovery really took off. It was the best thing I ever did for myself? Pt states he is well connected in , has a sponsor, as well as a therapist and case advocate at [facility].?? Discussed how alcohol use has impacted health, including negative impact on mental health and overall physical well being.? Discussed risk and reduction strategies including drinking below the recommended limit and utilizing OTC and prescription medications for pain relief. Pt verbalized understanding and reports looking forward to an [facility]. Provided pt with written resources including information on inpatient and outpatient treatment, JOHNNY, harm reduction and recovery coaching.?? Pt reports he will be in contact with his AA sponsor and returning to meetings upon discharge. Pt declines intervention, JOHNNY, or outpatient appt for treatment related to AUD at this time.? Pt was provided with TW?s contact information if questions or concerns arise. Pt denies further questions or concerns at this time.?
--- NOTE | 2025-07-29 17:08 | PC.NURSE ---
Admitted from the ER at 10:40 am with his own Insulin pump running . RN communicated with DR Freeman about the pt's own Insulin pump and clarified with MD that pt needs an order in place to use his own Insulin pump. pt is alert and oriented x 4 , able to read info from his Insulin pump . 11:40 POC 59 , pt stopped his pump , MD Freeman notified about hypoglycemia . Protocol was initiated Pt is aware not to use Insulin infusion , pump is off. 12:31 POC 91 , Insulin pump is off 16:59 POC 85 , pump is off . Pt stated that turned his Insulin pump after lunch and was on till 16:59.
[2025-07-29 21:18] LABS: Glucose, Whole Blood 125 mg/dL (60-115)
[2025-07-30] VITALS (8 sets, daily range): BP systolic 168–189; BP diastolic 79–93; PULSE 60–92; RESP 16–18; TEMP 36.2–37; O2SAT 97–100
[2025-07-30] MEDS: 0.9 % Sodium Chloride Flush 3 ML SYRINGE IVFLUSH ×4 (04:23→23:42)
[2025-07-30 05:30] LABS: Hemoglobin 12.4 g/dl (14.0-18.0); NRBC Abs Auto 0.000 X10*3/uL (0.0-0.012); NRBC Pct Auto 0.0 /100WBC (0.0-0.2); PLT CLUMP 1; SCAN SMEAR FLAG 1
[2025-07-30 05:32] LABS: Hematocrit 34.4 % (42.0-52.0); Imm Gran Abs Auto 0.02 X10*3/uL (0.00-0.03); Imm Gran Pct Auto 0.2 % (0.0-0.4); Lymphocytes Absolute Auto 1.3 X10*3/uL (1.2-4.9); MANUAL DIFF FLAG SCAN; Mean Corpuscular HGB Conc 36.0 g/dl (31.0-36.0); Mean Corpuscular Hemoglobin 36.3 pg (27.0-33.0); Mean Corpuscular Volume 100.6 fL (80.0-98.0); Red Blood Count 3.42 X10*6/uL (4.60-5.80)
[2025-07-30 05:34] LABS: White Blood Count 10.4 X10*3/uL (4.8-10.8)
[2025-07-30 05:43] LABS: Anion Gap 10 (12-20); Blood Urea Nitrogen 13 mg/dL (9-16); Calcium 8.0 mg/dL (8.4-10.2); Carbon Dioxide 34 mmol/L (22-29); Chloride 100 mmol/L (96-108); Creatinine Clr Calc Pharmacy 84.5; Estimated Glomerular Filt Rate > 60; Potassium 3.1 mmol/L (3.3-5.1); Sodium 141 mmol/L (135-145)
[2025-07-30 05:52] LABS: Platelet Count 77 X10*3/uL (160-400)
[2025-07-30 08:21] LABS: Glucose, Whole Blood 123 mg/dL (60-115)
[2025-07-30] MEDS: Nicotine 14 MG PATCH.TD24 TRANSDERMA (09:13)
--- NOTE | 2025-07-30 11:38 | PC.NURSE ---
pt stated that insulin pump is off since am
--- NOTE | 2025-07-30 11:48 | MHC.CM.PN ---
PT REPORTS HE LIVES AT HOME WITH PARENTS HE IS INDEPENDENT WITH CARE AND HAS NO HOME SERVICES HE HAS AN INSULIN PUMP FOR DME HCP ON FILE PCP: JESSE HASSAN OBSERVATION NOTICE DELIVERED 07/29/25 DCP: HOME [facility]
[2025-07-30 11:49] LABS: Glucose, Whole Blood 104 mg/dL (60-115)
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
[2025-07-30 15:16] LABS: MRSA Nasal PCR NEGATIVE (Negative); SA Nasal PCR NEGATIVE (Negative)
[2025-07-30 15:48] LABS: Glucose, Whole Blood 132 mg/dL (60-115)
[2025-07-30] MEDS: Potassium Chloride Packet 20 MEQ PACKET 40 MEQ PO ×2 (16:49→18:37)
[2025-07-30 21:42] LABS: Glucose, Whole Blood 190 mg/dL (60-115)
[2025-07-31 03:52] VITALS: BP 181/93; PULSE 90; RESP 16; TEMP 36.9; O2SAT 100
[2025-07-31 07:03] LABS: MANUAL DIFF FLAG NO
[2025-07-31 07:12] LABS: Hematocrit 35.1 % (42.0-52.0); Hemoglobin 12.7 g/dl (14.0-18.0); Imm Gran Abs Auto 0.01 X10*3/uL (0.00-0.03); Imm Gran Pct Auto 0.2 % (0.0-0.4); Lymphocytes Absolute Auto 1.2 X10*3/uL (1.2-4.9); Mean Corpuscular HGB Conc 36.2 g/dl (31.0-36.0); Mean Corpuscular Hemoglobin 36.4 pg (27.0-33.0); Mean Corpuscular Volume 100.6 fL (80.0-98.0); NRBC Abs Auto 0.000 X10*3/uL (0.0-0.012); NRBC Pct Auto 0.0 /100WBC (0.0-0.2); Red Blood Count 3.49 X10*6/uL (4.60-5.80); White Blood Count 5.8 X10*3/uL (4.8-10.8)
[2025-07-31 07:14] LABS: Platelet Count 67 X10*3/uL (160-400)
[2025-07-31 07:18] LABS: Glucose, Whole Blood 258 mg/dL (60-115)
[2025-07-31 07:21] LABS: Anion Gap 9 (12-20); Blood Urea Nitrogen 14 mg/dL (9-16); Calcium 8.6 mg/dL (8.4-10.2); Carbon Dioxide 34 mmol/L (22-29); Chloride 98 mmol/L (96-108); Creatinine Clr Calc Pharmacy 81.4; Estimated Glomerular Filt Rate > 60; Potassium 3.4 mmol/L (3.3-5.1); Sodium 138 mmol/L (135-145)
[2025-07-31 07:33] VITALS: BP 192/87; PULSE 61; RESP 18; TEMP 36.2; O2SAT 98
[2025-07-31] MEDS: Nicotine 14 MG PATCH.TD24 TRANSDERMA (09:09)
[2025-07-31] MEDS: 0.9 % Sodium Chloride Flush 3 ML SYRINGE IVFLUSH (09:09)
--- NOTE | 2025-07-31 10:12 | P.EN_ITS ---
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 No concern for withdrawal at this time Declined intervention or follow up when seen by RN Please re-consult if necessary Time Spent With Patient Time: Total time managing care of this patient today ____ minutes.
[2025-07-31 12:00] VITALS: BP 180/83; PULSE 71; RESP 18; TEMP 36.5; O2SAT 98
[2025-07-31] MEDS: oxyCODONE HCl Immed Release 5 MG TABLET PO (12:07)
[2025-07-31 12:13] LABS: Glucose, Whole Blood 192 mg/dL (60-115)
[2025-07-31 14:46] VITALS: BP 148/80; PULSE 70
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
--- NOTE | 2025-07-31 15:20 | MHC.CM.PN ---
Patient has been medically cleared for dc to home today, self care.
[2025-07-31] MEDS: Naloxone HCl Nasal TAKE HOME 4 MG SPRAY 8 MG NOSTRILALT (15:56)
--- NOTE | 2025-08-04 07:19 | P.CDIM_ITS ---
PROVIDER RESPONSE TEXT: To clarify, the appropriate diagnosis supported by the clinical indicators: Sepsis: Possible, of unclear etiology QUERY TEXT: PHYSICIAN'S DOCUMENTATION REQUEST Date of Query: 08/01/2025 08:07 AM EDT Patient Name: Edu Mccloud Admit Date: 07/28/2025 Dear Gagan ALTAMIRANO, RETROSPECTIVE QUERY A review of the medical record indicates additional documentation may be needed. Please review below and update the documentation accordingly. Clarity between two documented diagnosis within the medical record: ED and H&P 07/28/25 - Patient presented N/V/D with leukocytosis 17.9 with left shift, tachycardia, hypoxic to 77%. IV fluids, Vancomycin, Ceftriaxone. H&P Plan: Acute lactic acidosis/Sepsis/Leukocytosis LA initially elevated, patient resuscitated with IVF 30ml/kg Progress note 07/29/25 - SIRS/ Sepsis Discharge summary 07/31/25- SIRS/Sepsis Sepsis Systemic manifestations of infection, with 2 or more SIRS criteria which include: Fever > 100.4?F or hypothermia < 96.8?F Leukocytosis - WBC > 12,000 or leukopenia, WBC < 4,000, or > 10% bands Tachycardia- > 90 beats/minute Tachypnea- RR > 20 breaths/minute Based on the above information and the recognized standard for sepsis, could you please clarify if this diagnoses is still accurate and reflective of the patient's condition to ensure quality of the medical record. Sepsis possible, resolved, suspected, cannot rule out etc. SIRS possible, probable, suspected, cannot rule out etc. Other specified Other (explain) Clinically unable to determine (explain) Thank you, Barbra Ash, CCS, CDIS Use of terms such as suspected, likely, concern for, or probable (associated with a specific diagnosis that is being evaluated, monitored, or treated as if it exists) are acceptable and can be coded in the inpatient setting, when documented at the time of discharge. Please use your independent medical judgment in providing your response. THIS QUERY IS PART OF THE PERMANENT MEDICAL RECORD
== END 2025-07-31 16:15 | disposition home or self-care (01) | DRG 720 ==
LOC: HO.ED 15:21 → HO.EDOVER 19:41 → HO.IMC 07-29 07:34
PROVIDERS: Nurse Practitioner Family; Student in an Organized Health Care Education/Training Program; Admitting Provider Internal Medicine; Emergency Provider Emergency Medicine; Visit Provider Student in an Organized Health Care Education/Training Program
DX: A41.9 Sepsis, unspecified organism (principal); J96.01 Acute respiratory failure with hypoxia; K29.70 Gastritis, unspecified, without bleeding; E10.9 Type 1 diabetes mellitus without complications; F17.210 Nicotine dependence, cigarettes, uncomplicated; J44.9 Chronic obstructive pulmonary disease, unspecified; M51.369 Other intervertebral disc degeneration, lumbar region without mention of lumbar back pain or lower extremity pain; K21.00 Gastro-esophageal reflux disease with esophagitis, without bleeding; M48.061 Spinal stenosis, lumbar region without neurogenic claudication; Z96.41 Presence of insulin pump (external) (internal); Z71.6 Tobacco abuse counseling; F12.90 Cannabis use, unspecified, uncomplicated; R11.2 Nausea with vomiting, unspecified; F10.939 Alcohol use, unspecified with withdrawal, unspecified; Z20.822 Contact with and (suspected) exposure to COVID-19; Y90.1 Blood alcohol level of 20-39 mg/100 ml; Z79.899 Other long term (current) drug therapy
CPT/HCPCS: 36415; 71045; 71275; 72131; 74176; 80048; 80053; 80307; 81001; 82247; 82947; 83605; 83735; 84145; 84443; 85025; 85610; 85730; 87040; 87637; 87640; 87641; 93005; 99285; J0131; J0360; J0696; J1171; J1650; J1808; J2405; J2470; J2919; J3010; J3374; J3411; J7120; Q9967; S9485

== ENCOUNTER → 2025-07-28 14:03 | Outpatient (BNV) | payer MEDICAID, SELFPAY | PROVIDERS: Emergency Provider Emergency Medicine; Visit Provider Radiology Diagnostic Radiology | DX: K22.89 Other specified disease of esophagus (principal); K44.9 Diaphragmatic hernia without obstruction or gangrene; I70.0 Atherosclerosis of aorta; M51.87 Other intervertebral disc disorders, lumbosacral region; M99.63 Osseous and subluxation stenosis of intervertebral foramina of lumbar region; R05.9 Cough, unspecified | CPT/HCPCS: 71045; 71275; 72131; 74176 ==

== ENCOUNTER → 2025-07-28 14:03 | Outpatient (BNV) | payer MEDICAID, SELFPAY | PROVIDERS: Admitting Provider Internal Medicine; Emergency Provider Emergency Medicine; Visit Provider Internal Medicine Cardiovascular Disease | DX: R00.0 Tachycardia, unspecified (principal) | CPT/HCPCS: 93010 ==

== ENCOUNTER → 2025-07-28 19:29 | Outpatient (BNV) | payer MEDICAID, SELFPAY | PROVIDERS: Admitting Provider Internal Medicine; Emergency Provider Emergency Medicine; Visit Provider Student in an Organized Health Care Education/Training Program | DX: F10.90 Alcohol use, unspecified, uncomplicated (principal); M54.50 Low back pain, unspecified; G89.29 Other chronic pain; R09.02 Hypoxemia | CPT/HCPCS: 99223; 99233; 99239 ==

== ENCOUNTER 2025-08-06 20:51 | Emergency (ER) | payer MEDICAID, SELFPAY ==
[2025-08-06 21:00] VITALS: BP 142/63; PULSE 107; RESP 18; TEMP 36.6; O2SAT 99; BMI 23.0
--- OUTSIDE RECORDS SUMMARY | 2025-08-06 21:39 | XMS_ITS | Clinical Summary ---
Author Organization [facility], Address [address] [place] [address] [place] [address] Phone Care Team Providers Care Meat Stringer Name Role Phone Niru Crawford Primary Care Provider [phone] Allergies Active Allergy Reactions Criticality Noted Date Comments Hydroxyzine Other (see comments),Rash Low 09/14/2017 Skin feels funny/fidgety Quetiapine Anxiety,Other (see comments) Low 03/19/2023 Medications omeprazole (PriLOSEC) [address] capsule Oral Active lamoTRIgine (LaMICtal) 100 MG tablet Take [...] MCG/ACT inhaler Inhale 2 puffs 2 Active lisinopril 20 MG tablet Take 1 tablet (20 mg total) by mouth 1 (one) time each day 90 tablet 3 5 Active Active Problems Problem Noted Date Diagnosed [...] Encounters Date Type Department Care Team Description 07/05/2025 4:20 PM EDT Office Visit [facility], [address] [address] Juan Yee MD Proteinuria, not otherwise specified (Primary Dx) from Last 3 Months Immunizations Immunization Administration [...] Care Team (Late st Contact Info) Description 01/10/2026 9:20 AM EDT Office Visit [facility], [address] [facility] [place] [address] Juan Yee MD [address] [address] [place] [place] [address] Health Maintenance Due Date Last [...] 09/22/2019, 09/04/2010, 08/18/2008 Influenza Vaccine (#1) 2025 4, 07/29/2023, 08/09/2022, Additional history exists Pneumococcal Vaccine: Peds ( 0 to 5 Years) and At-Risk Patients (6 to 49 Years) Discontinued 09/22/2019, 09/04/2010, 08/18/2008 Insurance [facility] Care Teams Meat Stringer Relationship Specialty Start Date End Date Niru Crawford [address] [place] [address] PCP - General 11/08/24
--- OUTSIDE RECORDS SUMMARY | 2025-08-06 21:39 | XMS_ITS | Encounter Summary ---
Author Organization [facility], Address [address] [place] [address] Phone Care Team Providers Care Munitions Worker Name Role Phone CrawfordNiru Primary Care Provider [phone] Encounter Details Date Type Department Care Team (Late st Contact Info) Description 09/30/2023 Documentation Only [facility] [address] [place] [address] Linda Carrasquillo NP [address] [place], [place] [id number] Social History Tobacco Use Types Packs/Day Years [...] [facility] [address] [place] [address] Juan Yee MD [address] [place] [address] [place] [id number] documented as of this encounter Visit Diagnoses Not on filedocumented in this encounter Care Teams Munitions Worker Relationship Specialty Start Date End Date YvetteHarrietta [address] [place], [place] [id number] PCP - General 11/08/24 documented as of this encounter
--- OUTSIDE RECORDS SUMMARY | 2025-08-06 21:39 | XMS_ITS | Patient Health Record ---
Author Organization [facility] Address [address] [place] [address] Care Team Providers Care Contract Admin Name Role Phone JESSE HASSAN PA-C Primary Care Provider Hank Palomo Unavailable [phone] Allergies Allergen (clinical drug ingredient) Drug/Non Drug [...] 2013; uses medical marijuana from dispensary in [place] for apetitie stimulant, anxiety/depression, and pain relief. Smokes 2 cigs QD Recovering alcoholic--heavy until 2009--reports occ. lapses, but last time was 2014; substance abuse with previous IVDA-none since 2014; uses medical marijuana from dispensary in [place] for apetitie stimulant, anxiety/depression, and pain relief. Smokes 2 cigs QD. Recovering alcoholic--heavy until 2009--reports occ. lapses, but last time was 2014; substance abuse with previous IVDA-none since 2014; uses medical marijuana from dispensary in [place] for apetitie stimulant, anxiety/depression, and pain relief. Smokes 2 cigs QD. Problems Problem Type SNOMED Code ICD Code Onset Dates Problem Status W/U Status Risk Notes Problem Colon cancer screening (632565600) Colon cancer screening (Z12.11) Active confirmed Problem Diverticular disease of colon (758093881) Diverticulosis of large intestine without perforation or abscess without bleeding (K57.30) Active confirmed Problem Elevated liver enzymes level (140994032) Elevated liver function tests (R79.89) Active confirmed Problem Chronic gastritis (8055178) Gastritis, chronic (K29.50) Active confirmed Problem Erosive esophagitis (44155926) Erosive esophagitis (K22.10) Active confirmed Problem Gastritis (1835055) Gastritis (K29.70) Active confirmed Problem Abnormal CT scan , esophagus (R93.3) Active confirmed Problem Acute pancreatitis (126689207) Idiopathic acute pancreatitis without infection or necrosis (K85.00) Active confirmed Problem Gastroesophageal reflux disease with esophagitis (disorder) (092605347) Gastro-esophageal reflux disease with esophagitis, without bleeding [...] Medicaid [address] [place] [address] [id number] GRAHAM MCINTOSH Self - patient is the insured MEDICAID OF [facility] [address] [place] [address] [phone] [id number] GRAHAM MCINTOSH Self - patient is the [...]
[2025-08-06 22:16] VITALS: BP 143/81; PULSE 95; RESP 18; TEMP 36.8; O2SAT 97
--- NOTE | 2025-08-06 22:23 | PC.NURSE ---
PT from triage [facility] reporting 8/10 chronic lower back pain. PT reports that the pain has caused him nausea/vomiting, pt did vomit multiple times since arrival. Reports he has pain management appt. in AM. VSS.
--- NOTE | 2025-08-06 23:32 | ED.GENADULT ---
HPI - General Adult General Chief complaint: Back Pain/Injury Stated complaint: back pain Time Seen by Provider: 08/06/25 23:31 History of Present Illness ED Provider: Tanya LEWIS narrative: The patient is a 49-year-old who was a type 1 diabetic with an insulin pump. He also has a history of chronic back problems. He says that he has a pain management appointment tomorrow. He says that he had worsening pain in his back this evening that gave him a sense of tightness in his sense of nausea. He felt that he was unable to tolerate the pain and he had a friend drop him off at the emergency room. No fever, sweats, chills. He says he has had some nausea and vomiting. Related Data Home Medications ?Medication ?Instructions ?Recorded ?Confirmed clonazepam 0.5 mg tablet 0.5 mg PO BEDTIME Anxiety 07/16/21 07/28/25 subcutaneous insulin pump (Tandem 12/29/24 05/10/25 Mobi System) cholecalciferol (vitamin D3) 25 25 mcg PO DAILY 01/16/25 07/28/25 mcg (1,000 unit) tablet 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,machinery mover,cont 05/10/25 05/10/25 (Dexcom G6 Machine Heel Sprayer) folic acid 1 mg tablet 1 mg PO DAILY 05/16/25 07/28/25 omeprazole 40 mg capsule,delayed 40 mg PO DAILY 05/16/25 07/28/25 release thiamine HCl (vitamin B1) 100 mg 100 mg PO DAILY 05/16/25 07/28/25 tablet baclofen 10 mg tablet 10 mg PO BID muscle spasm 07/28/25 07/28/25 gabapentin 400 mg capsule 400 mg PO BID pain (scale score 07/28/25 07/28/25 4-6) Previous Rx's ?Medication ?Instructions ?Recorded insulin syringe-needle U-100 0.3 #150 ea 08/29/20 mL 29 gauge x 1/2 (BD Insulin Syringe) pen needle, diabetic 32 gauge x #50 ea 08/29/2032 (BD Felisha 2nd Gen Pen Needle) 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 meter (FreeStyle #1 ea 10/22/22 Lite Meter kit) blood sugar diagnostic (FreeStyle #300 ea 02/19/23 Lite Strips) lancets 28 gauge (FreeStyle #100 ea 05/11/23 Lancets) acetone (urine) test (Ketone Urine #25 ea 11/02/24 Test strips) insulin lispro 100 unit/mL See Rx Instructions .Route 02/22/25 subcutaneous solution .COMPLEX #30 mL lidocaine 5 % topical patch 1 patch topical DAILY PRN pain #30 03/04/25 (Lidoderm) ea meloxicam 7.5 mg tablet 7.5 mg PO DAILY #20 tabs 03/14/25 acetaminophen 325 mg capsule 650 mg (2 x 325 mg) PO Q6H PRN 07/31/25 pain, mild #90 caps amlodipine 5 mg tablet 5 mg PO DAILY #90 tabs 07/31/25 cefuroxime axetil 500 mg tablet 500 mg PO Q12H #6 tabs 07/31/25 clonidine HCl 0.1 mg tablet 0.1 mg PO BID #60 tabs 07/31/25 lisinopril 40 mg tablet 40 mg PO DAILY #90 tabs 07/31/25 oxycodone 5 mg capsule 5 mg PO TID PRN pain (scale score 07/31/25 7-10) #15 caps Allergies Allergy/AdvReac Type Severity Reaction Status Date / Time hydroxyzine (From VISTARIL) Allergy Intermediate RASH, Verified 08/06/25 21:02 ANXIOUS quetiapine (Seroquel) AdvReac Intermediate Unknown Verified 08/06/25 21:02 Review of Systems Review of Systems: Yes all other systems are reviewed and are negative [facility] Past Medical History Medical History HTN (hypertension) Constipation History of methadone use Intravenous drug user Peripheral vascular disease Elevated liver function tests Polysubstance abuse Osteoarthritis Type 1 diabetes History of drug abuse Depression Vitamin D deficiency 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 Mother No problems noted. Social History Social History Household Members: Family Household Members Other:: mother Housing: House Do you presently have visiting nurse or other home services: No Alcohol intake: never Patient Tobacco Use Status: Current someday Tobacco user Tobacco use type: Cigarette Cigarettes Per Day: 3 Years Smoked: 33 Smoked in Last 30 Days: Yes e-Cigarette/Vaping Use: Currently Using Second Hand Smoke Exposure: No Use of substances other than those prescribed or required for medical reasons: Yes Substance Use Type: Marijuana Substance Use Frequency: Chronic Longstanding Last Used Substance: Hours (ago) Any prior treatment program specific to substance use: No Advance Directives: Yes Advance Directives on File: Yes Advance Directives Date on File: 08/29/20 Do you have a plan to hurt others: No Plan service: No Current occupational status: unemployed Physical Exam ED Vital Signs: Vital Signs - 24 hr 08/06/25 21:00 08/06/25 22:16 08/06/25 23:49 Temperature 98 F 98.3 F Pulse Rate 107 H 95 Respiratory Rate 18 18 20 Blood Pressure 142/63 H 143/81 H Pulse Oximetry 99 97 Oxygen Delivery Method Room Air Room Air 08/07/25 01:02 Temperature 97.6 F Pulse Rate 108 H Respiratory Rate 20 Blood Pressure 173/94 H Pulse Oximetry 100 Oxygen Delivery Method Room Air BMI result Body Mass Index 23.0 Const Other: The patient is a somewhat chronically ill, somewhat poorly kept 49-year-old male who was awake and alert and did not seem obviously acutely ill. Orientation/consciousness: patient oriented x3 HENMT Other: The face is symmetrical. ?Mucous membranes moist. Eyes Other: Pupils are round equal, conjunctivae are clear, extraocular movements intact Neck Neck: Yes normal visual inspection and Yes full ROM Resp Effort & Inspection: normal respiratory effort Auscultation: clear to auscultation bilaterally Cardio Rate: tachycardic Rhythm: regular rhythm Heart sounds: S1 normal heart sound present and S2 normal heart sound present GI Other: Abdomen is soft and nontender Back/Spine/Pelvis Other: Diffuse lower back tenderness Skin Other: The skin is dry and unremarkable Neuro General: patient oriented x3, tone normal, moves all extremities, no focal motor deficits and CN's II-XI intact bilaterally Extrem Other: No peripheral edema Medications Administered Discontinued Medications Generic Name Dose Route Start Last Admin Trade Name Freq PRN Reason Stop Dose Admin Droperidol 2.5 mg 08/06/25 23:40 08/06/25 23:49 Droperidol 5 Mg/2 Ml Vial IM 08/06/25 23:41 2.5 mg ONCE ONE Administration Morphine Sulfate 10 mg 08/06/25 23:40 08/06/25 23:49 Morphine Sulfate 10 Mg/Ml Cartridge IM 08/06/25 23:41 10 mg ONCE ONE Administration Protocol Oxycodone HCl 5 mg 08/07/25 00:51 08/07/25 00:58 Oxycodone Hcl Immed Release 5 Mg Tablet PO 08/07/25 00:52 5 mg ONCE ONE Administration Medical Decision Making Medical Decision Making MDM Narrative: The patient is a 49-year-old male who presents with a complaint of worsening low back pain that seems to be an exacerbation of his chronic low back pain. The patient said that he was having pain severe enough to make him nauseated. The patient comes to the emergency room with some frequency. He was given an IM injection of droperidol for his nausea and of IM morphine for his pain. He was observed. He felt somewhat better. He was able to tolerate oral intake. He was given a 5 mg tablet of oxycodone and discharged. He says that he has an appointment at the pain clinic in the morning. Discharge Plan Discharge Clinical Impression: Acute exacerbation of chronic low back pain, Nausea Patient Disposition: Home, Self-Care Additional Instructions: Please keep your appointment with the pain clinic tomorrow morning. Also follow up with your regular doctor. Return to the emergency room if significantly worse. Prescriptions: No Action (DME) insulin syringe-needle U-100 [BD Insulin Syringe] 0.3 mL 29 gauge x 1/2 syringe See Rx Instructions .ROUTE .MEDSUPPLY Qty: 150 5RF Rx Instructions: 4 times a day (DME) pen needle, diabetic [BD Felisha 2nd Gen Pen Needle] 32 gauge x 5/32 needle See Rx Instructions .ROUTE .MEDSUPPLY Qty: 50 4RF Rx Instructions: once a day (DME) 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 meter [FreeStyle Lite Meter] Kit See Rx Instructions .Route Qty: 1 0RF Rx Instructions: As directed-checks 4 X/day insulin lispro 100 unit/mL solution See Rx Instructions .ROUTE .COMPLEX Qty: 30 11RF Rx Instructions: UP TO 100 UNITS DAILY VIA INSULIN PUMP (TANDEM TSLIM x2) (DME) Tandem Mobi System [facility] [place] Rx Instructions: UP TO 100 UNITS INSULIN LISPRO DAILY VIA PUMP meloxicam 7.5 mg tablet 7.5 mg PO DAILY Qty: 20 0RF thiamine HCl (vitamin B1) 100 mg tablet 100 mg PO DAILY folic acid 1 mg tablet 1 mg PO DAILY omeprazole 40 mg capsule,delayed release(DR/EC) 40 mg PO DAILY gabapentin 400 mg capsule 400 mg PO BID baclofen 10 mg tablet 10 mg PO BID Rx Instructions: Do not take this medication before driving or going to work, it may make you feel drowsy. clonidine HCl 0.1 mg Tablet 0.1 mg PO BID Qty: 60 0RF Protocol: Hold for SBP< HOLD for SBP < : 90 Rx Instructions: Take one tablet twice a day for hypertension amlodipine 5 mg Tablet 5 mg PO DAILY Qty: 90 0RF Protocol: Hold for SBP< HOLD for SBP < : 90 Rx Instructions: Take one tablet daily for hypertension lisinopril 40 mg Tablet 40 mg PO DAILY Qty: 90 0RF Protocol: Hold for SBP< HOLD for SBP < : 90 Rx Instructions: Take one tablet twice a day for hypertension oxycodone 5 mg capsule 5 mg PO TID PRN (Reason: pain (scale score 7-10)) Qty: 15 0RF Rx Instructions: Partial Fill upon patient request. Take one tablet up to three times a day for severe pain. acetaminophen 325 mg capsule 650 mg PO Q6H PRN (Reason: pain, mild) Qty: 90 0RF Rx Instructions: Take two capsules up to four times a day for mild pain cefuroxime axetil 500 mg tablet 500 mg PO Q12H Qty: 6 0RF Rx Instructions: Take 1 tablet twice a day with food for the next 3 days, starting the morning of 08/01 and ending the evening of 08/03 cholecalciferol (vitamin D3) 25 mcg (1,000 unit) tablet 25 mcg PO DAILY lidocaine [Lidoderm] 5 % adhesive patch,medicated 1 patch topical DAILY MDD remove after 12 hours PRN (Reason: pain) Qty: 30 0RF Rx Instructions: leave on most painful area for up to 12 hrs clonazepam 0.5 mg tablet 0.5 mg PO BEDTIME Rx Instructions: AT BEDTIME (DME) FreeStyle Lite Strips Strip See Rx Instructions .ROUTE .MEDSUPPLY Qty: 300 11RF Rx Instructions: 4x daily (DME) lancets [FreeStyle Lancets] 28 gauge misc See Rx Instructions .Route Qty: 100 5RF Rx Instructions: As directed 4 X/day (DME) Ketone Urine Test Strip See Rx Instructions .ROUTE .MEDSUPPLY Qty: 25 1RF Rx Instructions: prn tid for nausea, vomiting, illness, glucose remaining over 250 (DME) Dexcom G6 Machine Heel Sprayer Misc See Rx Instructions .Route Rx Instructions: As directed Referrals: [facility] [place] Group, [place] Management] Niru Crawford PA [Primary Care Provider, Internal Medicine] Interventions: ED Discharge Assessment Last Done: 08/07/25 01:02 Discharge Date/Time: 08/07/25 01:03 Print Language: Japanese
[2025-08-06 23:49] VITALS: RESP 20
[2025-08-07] MEDS: oxyCODONE HCl Immed Release 5 MG TABLET PO (00:58)
[2025-08-07 01:02] VITALS: BP 173/94; PULSE 108; RESP 20; TEMP 36.4; O2SAT 100
== END 2025-08-07 01:03 | disposition home or self-care (01) ==
PROVIDERS: Emergency Provider Emergency Medicine
DX: M54.50 Low back pain, unspecified (principal); E10.9 Type 1 diabetes mellitus without complications; R00.0 Tachycardia, unspecified; R11.0 Nausea; Z96.41 Presence of insulin pump (external) (internal); Z79.4 Long term (current) use of insulin; Z79.899 Other long term (current) drug therapy
CPT/HCPCS: 96372; 99284; J1790; J2270

== ENCOUNTER 2025-08-07 09:38 | Outpatient (AMB) | payer MEDICAID, SELFPAY ==
--- NOTE | 2025-08-07 09:40 | MHC.OFFVIS ---
Vital Signs 08/07/25 09:41 Height 5 ft 11 in Weight 148 lb BMI 20.6 BP 126/78 Blood Pressure Location Lt brachial Position Sitting Respiration 16 Pulse 99 Pulse Source Pulse Oximeter Pulse Oximetry (%) 99 Oxygen Delivery Method Room Air Intake Visit Reasons: Discuss X-Ray Results Clerical Proofreader Required: No Allergies hydroxyzine (From [facility]) Allergy (Intermediate, Verified 08/07/25 09:42) RASH, ANXIOUS quetiapine (Seroquel) Adverse Reaction (Intermediate, Verified 08/07/25 09:42) Unknown Medication List - Last Reconciled 08/07/25 by Keli Parker LPN acetaminophen 650 mg (2 x 325 mg) PO Q6H PRN acetone (urine) test (Ketone Urine Test strips) prn tid for nausea, vomiting, illness, glucose remaining over 250 amlodipine 5 mg See Protocol PO DAILY baclofen 10 mg PO BID blood sugar diagnostic (FreeStyle Lite Strips) 4x daily 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 meter (FreeStyle Lite Meter kit) As directed-checks 4 X/day 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,salesperson stereo equipment,cont (Dexcom G6 Terminal Press Operator) As directed cholecalciferol (vitamin D3) 25 mcg PO DAILY clonazepam 0.5 mg PO BEDTIME clonidine HCl 0.1 mg See Protocol PO BID folic acid 1 mg PO DAILY gabapentin 400 mg PO BID insulin lispro UP TO 100 UNITS DAILY VIA INSULIN PUMP (TANDEM TSLIM x2) insulin syringe-needle U-100 (BD Insulin Syringe) 4 times a day lancets (FreeStyle Lancets) As directed 4 X/day lidocaine 5% (Lidoderm) 1 patch topical DAILY PRN MDD remove after 12 hours lisinopril 40 mg See Protocol PO DAILY meloxicam 7.5 mg PO DAILY omeprazole 40 mg PO DAILY oxycodone 5 mg PO TID PRN pen needle, diabetic (BD Felisha 2nd Gen Pen Needle) once a day subcutaneous insulin pump (Tandem Mobi System) UP TO 100 UNITS INSULIN LISPRO DAILY VIA PUMP thiamine HCl (vitamin B1) 100 mg PO DAILY HPI HPI Discuss X-Ray Results: Details: History of Present Illness The patient is a 49-year-old male presenting with lower back pain and bilateral L5 pars defects. The lower back pain has been persistent, and the patient was recently hospitalized for five days due to severe pain, during which various tests were conducted to rule out infection. The patient has been prescribed 5 mg oxycodone by his primary care physician, but there is a preference for pain management to be overseen by the current provider. The patient has mild anterolisthesis, which was confirmed through imaging studies, including x-rays and MRI. The condition involves a broken bone that is not tethered, causing it to slip forward and backward, leading to pain during movement. The patient has been advised to consider smoking cessation as smoking can interfere with bone quality and the success of potential future surgical interventions. Pain Description - Onset: Persistent lower back pain - Quality: Pain during movement due to slipping of untethered bone - Location: Lower back - Exacerbating factors: Movement causing slipping of bone - Relieving factors: Pain management with oxycodone Physical Exam - Appears afebrile. - Alert and oriented. - Mood and affect appropriate. - Follows and participates in conversation appropriately. - Persistent LE pain. Results - Imaging: X-rays and MRI confirmed mild anterolisthesis and bilateral L5 pars defects Pain Management - Affect: Pain impacts daily activities and psychological well-being - Analgesia: Currently using 5 mg oxycodone as prescribed by primary care physician - Adverse Effects: Potential for increased pain and depression with long-term oxycodone use - Activities of Daily Living: Pain interferes with movement and daily activities - Aberrant Drug Related Behaviors: No aberrant behaviors reported [facility] Medical History HTN (hypertension) Constipation History of methadone use Intravenous drug user Peripheral vascular disease Elevated liver function tests Polysubstance abuse Osteoarthritis Type 1 diabetes History of drug abuse Depression Vitamin D deficiency 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 Mother No problems noted. Social History Household Members: Family Household Members Other:: mother Housing: House Do you presently have visiting nurse or other home services: No Alcohol intake: never Patient Tobacco Use Status: Current someday Tobacco user Tobacco use type: Cigarette Cigarettes Per Day: 3 Years Smoked: 33 e-Cigarette/Vaping Use: Currently Using Second Hand Smoke Exposure: No Substance Use Type: Marijuana Advance Directives Date on File: 08/29/20 service: No Current occupational status: unemployed Physical Exam Vital Signs: Last Vital Signs Pulse 99 08/07/25 09:41 Resp 16 08/07/25 09:41 BP 126/78 08/07/25 09:41 Pulse Ox 99 08/07/25 09:41 Oxygen Delivery Method Room Air 08/07/25 09:41 BMI result Body Mass Index 20.6 Assessment & Plan Assessment & Plan (1) Pars defect with spondylolisthesis: Code(s): M43.10 - Spondylolisthesis, site unspecified Category: Medical (2) Lumbar radicular pain: Code(s): M54.16 - Radiculopathy, lumbar region Category: Medical Plan Plan Patient was informed and verbally consented to the use of an ambient scribe for clinic note documentation during this visit. 1. Lower Back Pain - Plan to proceed with the previously ordered transforaminal injection for pain relief. - Encourage smoking cessation to improve bone health and potential surgical outcomes. - Consider core strengthening exercises to support the spine and reduce pain. 2. Bilateral L5 Pars Defects - Monitor the condition with imaging studies to assess progression. - Discuss potential surgical intervention if condition worsens. Discussion Notes During the visit, we discussed the patient's lower back pain and bilateral L5 pars defects, including the mild anterolisthesis observed on imaging studies. We reviewed the potential benefits and risks of a transforaminal injection for pain relief and emphasized the importance of smoking cessation to improve bone health and surgical outcomes. The patient was advised to continue with core strengthening exercises and to monitor the condition with regular imaging studies. Patient Instructions - Schedule and attend the transforaminal injection appointment for pain relief. - Quit smoking to improve bone health and enhance surgical outcomes. - Engage in core strengthening exercises to support the spine. - Follow up with regular imaging studies to monitor the condition. Coding Level of Care Code Est Pt Level 3 (38360) Diagnoses Pars defect with spondylolisthesis M43.10 Lumbar radicular pain M54.16
[2025-08-07 09:41] VITALS: BP 126/78; PULSE 99; RESP 16; O2SAT 99; BMI 20.6
--- OUTSIDE RECORDS SUMMARY | 2025-08-07 10:58 | XMS_ITS | Encounter Summary ---
Author Organization [facility], Address [address] [place] [address] Phone Care Team Providers Care Ultrasonic Hand Solderer Name Role Phone CrawfordNiru Primary Care Provider [phone] Encounter Details Date Type Department Care Team (Late st Contact Info) Description 09/30/2023 Documentation Only [facility] [address] [place] [address] Linda Carrasquillo NP [address] [place], [place] [phone] Social History Tobacco Use Types Packs/Day Years [...] Visit [facility] [address] [place] [address] Juan Yee MD [address] [place] [address] [place] [id number] documented as of this encounter Visit Diagnoses Not on filedocumented in this encounter Care Teams Ultrasonic Hand Solderer Relationship Specialty Start Date End Date YvetteHarrietta [address] [place], [place] [id number] PCP - General 11/08/24 documented as of this encounter
--- OUTSIDE RECORDS SUMMARY | 2025-08-07 10:58 | XMS_ITS | Patient Health Record ---
Author Organization [facility] Address [address] [place] [address] Care Team Providers Care Gang Investigator Name Role Phone JESSE HASSAN PA-C Primary Care Provider Hank Palomo Unavailable [phone] Allergies Allergen (clinical drug ingredient) Drug/Non Drug [...] 2013; uses medical marijuana from dispensary in [place] for apetitie stimulant, anxiety/depression, and pain relief. Smokes 2 cigs QD Recovering alcoholic--heavy until 2009--reports occ. lapses, but last time was 2014; substance abuse with previous IVDA-none since 2014; uses medical marijuana from dispensary in [place] for apetitie stimulant, anxiety/depression, and pain relief. Smokes 2 cigs QD. Recovering alcoholic--heavy until 2009--reports occ. lapses, but last time was 2014; substance abuse with previous IVDA-none since 2014; uses medical marijuana from dispensary in [place] for apetitie stimulant, anxiety/depression, and pain relief. Smokes 2 cigs QD. Problems Problem Type SNOMED Code ICD Code Onset Dates Problem Status W/U Status Risk Notes Problem Colon cancer screening (130399078) Colon cancer screening (Z12.11) Active confirmed Problem Diverticular disease of colon (775291661) Diverticulosis of large intestine without perforation or abscess without bleeding (K57.30) Active confirmed Problem Elevated liver enzymes level (585039261) Elevated liver function tests (R79.89) Active confirmed Problem Chronic gastritis (4134224) Gastritis, chronic (K29.50) Active confirmed Problem Erosive esophagitis (76855597) Erosive esophagitis (K22.10) Active confirmed Problem Gastritis (4540104) Gastritis (K29.70) Active confirmed Problem Abnormal CT scan , esophagus (R93.3) Active confirmed Problem Acute pancreatitis (755619541) Idiopathic acute pancreatitis without infection or necrosis (K85.00) Active confirmed Problem Gastroesophageal reflux disease with esophagitis (disorder) (390383967) Gastro-esophageal reflux disease with esophagitis, without bleeding [...] Medicaid [address] [place] [address] [id number] GRAHAM MCINTOSH Self - patient is the insured MEDICAID OF [facility] [address] [place] [address] [phone] [id number] GRAHAM MCINTOSH Self - patient is the insured Medical (General) History Medical History History ICD Code IDDM--has an Insulin pump Denies [place],CVA,Lung disease,renal disease Anxiety/Depression/PTSD Arthritis Substance and alcohol [...]
--- OUTSIDE RECORDS SUMMARY | 2025-08-07 10:58 | XMS_ITS | Clinical Summary ---
Author Organization [facility], Address [address] [place] [address] [place] [address] Phone Care Team Providers Care Appeals Coordinator Name Role Phone Niru Crawford Primary Care Provider [phone] Allergies Active Allergy Reactions Criticality Noted Date [...] Visit [facility] [place], [address] [place] [place] [address] Juan Yee MD Proteinuria, not otherwise specified [...] Visit [facility] [place], [address] [place] [address] Juan Yee MD [address] [facility] [place] [address] Health Maintenance Due Date Last [...] 48 Years) Discontinued 09/22/2019, 09/04/2010, 08/18/2008 Insurance [facility] Care Teams Appeals Coordinator Relationship Specialty Start Date End Date Niru Crawford [address] [place] [address] PCP - General 11/08/24
== END 2025-08-07 10:21 | disposition home or self-care (01) ==
LOC: HO.PMC 09:39
PROVIDERS: Visit Provider Internal Medicine
DX: M43.16 Spondylolisthesis, lumbar region (principal); M54.16 Radiculopathy, lumbar region
CPT/HCPCS: 99213

== ENCOUNTER → 2025-08-07 09:38 | Outpatient (BNVA) | payer MEDICAID, SELFPAY | PROVIDERS: Visit Provider Internal Medicine | DX: M43.10 Spondylolisthesis, site unspecified (principal); M54.16 Radiculopathy, lumbar region | CPT/HCPCS: 99212 ==

== ENCOUNTER 2025-08-17 04:15 | Emergency (ER) | payer MEDICAID, SELFPAY ==
[2025-08-17] VITALS (9 sets, daily range): BP systolic 159–198; BP diastolic 86–104; PULSE 81–132; RESP 16–20; TEMP 36.7–37.1; O2SAT 95–100; BMI 23.0
--- OUTSIDE RECORDS SUMMARY | 2025-08-17 05:06 | XMS_ITS | Encounter Summary ---
Author Organization [facility], Address [address] [place] [address] Phone Care Team Providers Care Refining Machine Operator Name Role Phone CrawfordNiru Primary Care Provider [phone] Encounter Details Date Type Department Care Team (Late st Contact Info) Description 09/30/2023 Documentation Only [facility] [address] [place] [address] Linda Carrasquillo NP [address] [place], [place] [phone] Social History Tobacco Use Types Packs/Day Years [...] Visit [facility] [address] [place] [address] Juan Yee MD [address] [place] [address] [place] [phone] documented as of this encounter Visit Diagnoses Not on filedocumented in this encounter Care Teams Refining Machine Operator Relationship Specialty Start Date End Date YvetetHarrietta [address] [place], [place] [phone] PCP - General 11/08/24 documented as of this encounter
--- OUTSIDE RECORDS SUMMARY | 2025-08-17 05:07 | XMS_ITS | Clinical Summary ---
Author Organization [facility], Address [address] [place] [address] [place] [address] Phone Care Team Providers Care Regulatory Affairs Associate Name Role Phone Niru Crawford Primary Care Provider [phone] Allergies Active Allergy Reactions Criticality Noted Date [...] Visit [facility] [place], [address] [place] [address] Juan Yee MD Proteinuria, not otherwise specified [...] Visit [facility] [place], [address] [place] [address] Juan Yee MD [address] [facility] [place] [address] Health Maintenance Due Date Last [...] 48 Years) Discontinued 09/22/2019, 09/04/2010, 08/18/2008 Insurance [facility] Care Teams Regulatory Affairs Associate Relationship Specialty Start Date End Date Niru Crawford [address] [place] [address] PCP - General 11/08/24
--- OUTSIDE RECORDS SUMMARY | 2025-08-17 05:07 | XMS_ITS | Patient Health Record ---
Author Organization [facility] Address [address] [place] [address] Care Team Providers Care Rectification Printer Name Role Phone JESSE HASSAN PA-C Primary Care Provider Hank Palomo Unavailable [phone] Allergies Allergen (clinical drug ingredient) Drug/Non Drug [...] 2013; uses medical marijuana from dispensary in [place] for apetitie stimulant, anxiety/depression, and pain relief. Smokes 2 cigs QD Recovering alcoholic--heavy until 2009--reports occ. lapses, but last time was 2014; substance abuse with previous IVDA-none since 2014; uses medical marijuana from dispensary in [place] for apetitie stimulant, anxiety/depression, and pain relief. Smokes 2 cigs QD. Recovering alcoholic--heavy until 2009--reports occ. lapses, but last time was 2014; substance abuse with previous IVDA-none since 2014; uses medical marijuana from dispensary in [place] for apetitie stimulant, anxiety/depression, and pain relief. Smokes 2 cigs QD. Problems Problem Type SNOMED Code ICD Code Onset Dates Problem Status W/U Status Risk Notes Problem Colon cancer screening (186052074) Colon cancer screening (Z12.11) Active confirmed Problem Diverticular disease of colon (088108951) Diverticulosis of large intestine without perforation or abscess without bleeding (K57.30) Active confirmed Problem Elevated liver enzymes level (882501723) Elevated liver function tests (R79.89) Active confirmed Problem Chronic gastritis (8127088) Gastritis, chronic (K29.50) Active confirmed Problem Erosive esophagitis (51599762) Erosive esophagitis (K22.10) Active confirmed Problem Gastritis (0985606) Gastritis (K29.70) Active confirmed Problem Abnormal CT scan , esophagus (R93.3) Active confirmed Problem Acute pancreatitis (398771082) Idiopathic acute pancreatitis without infection or necrosis (K85.00) Active confirmed Problem Gastroesophageal reflux disease with esophagitis (disorder) (276514991) Gastro-esophageal reflux disease with esophagitis, without bleeding [...] Medicaid [address] [place] [address] [id number] GRAHAM MCINTOSH Self - patient is the insured MEDICAID OF [facility] [address] [place] [address] [phone] [id number] GRAHAM MCINTOSH Self - patient is the insured Medical (General) History Medical History History ICD Code IDDM--has an Insulin pump Denies [place],CVA,Lung disease,renal disease Anxiety/Depression/PTSD Arthritis Substance and alcohol [...]
--- NOTE | 2025-08-17 06:07 | PC.NURSE ---
no vomiting since arrival. pt is drinking gingerale.
--- NOTE | 2025-08-17 07:12 | ED.GENADULT ---
HPI - General Adult General Chief complaint: Back Pain/Injury Stated complaint: Body Aches Time Seen by Provider: 08/17/25 07:06 Source: patient, EMS, RN notes reviewed and old records reviewed Mode of arrival: EMS Limitations: no limitations History of Present Illness ED Provider: EMETERIO Kebede HPI narrative: 49-year-old male with medical history of chronic cervical radiculopathy, chronic lumbar radiculopathy following pain management, T2DM, alcohol use disorder presents to the ED due to acute on chronic cervical and lumbar back pain. Patient states pain started with a ?muscle spasm? of the cervical and lumbar back when he turned in bed last night. Patient states this pain feels similar to his prior episodes of cervical and lumbar back pain. Denies injury/fall/trauma. Patient reports taking Tylenol, and 5 mg oxycodone for pain relief without effect. Patient states when the pain is exacerbated, this makes him nauseous and vomit. Patient has extensive history of chronic back pain and follows with pain management, and has an appointment with [facility] sports and spine in September to discuss surgery. Patient states he has been following pain management and follows up with them in 1 month to discuss cortisone shots for comfort. Patient denies fevers, chills, saddle paresthesias, bowel/bladder incontinence, history of malignancy, chest pain, shortness of breath, abdominal pain MD complaint: Cervical, lumbar back pain Related Data Home Medications ?Medication ?Instructions ?Recorded ?Confirmed clonazepam 0.5 mg tablet 0.5 mg PO BEDTIME Anxiety 07/16/21 08/07/25 subcutaneous insulin pump (Tandem 12/29/24 05/10/25 Keystone Insightsi System) cholecalciferol (vitamin D3) 25 25 mcg PO DAILY 01/16/25 08/07/25 mcg (1,000 unit) tablet 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,warehouse receiver,cont 05/10/25 05/10/25 (Dexcom G6 Building Insulation Installer) folic acid 1 mg tablet 1 mg PO DAILY 05/16/25 08/07/25 omeprazole 40 mg capsule,delayed 40 mg PO DAILY 05/16/25 08/07/25 release thiamine HCl (vitamin B1) 100 mg 100 mg PO DAILY 05/16/25 08/07/25 tablet baclofen 10 mg tablet 10 mg PO BID muscle spasm 07/28/25 08/07/25 gabapentin 400 mg capsule 400 mg PO BID pain (scale score 07/28/25 08/07/25 4-6) Previous Rx's ?Medication ?Instructions ?Recorded insulin syringe-needle U-100 0.3 #150 ea 08/29/20 mL 29 gauge x 1/2 (BD Insulin Syringe) pen needle, diabetic 32 gauge x #50 ea 08/29/20 5/32 (BD Felisha 2nd Gen Pen Needle) 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 meter (FreeStyle #1 ea 10/22/22 Lite Meter kit) blood sugar diagnostic (FreeStyle #300 ea 02/19/23 Lite Strips) lancets 28 gauge (FreeStyle #100 ea 02/19/23 Lancets) acetone (urine) test (Ketone Urine #25 ea 11/02/24 Test strips) insulin lispro 100 unit/mL See Rx Instructions .Route 02/22/25 subcutaneous solution .COMPLEX #30 mL lidocaine 5 % topical patch 1 patch topical DAILY PRN pain #30 03/04/25 (Lidoderm) ea meloxicam 7.5 mg tablet 7.5 mg PO DAILY #20 tabs 03/14/25 acetaminophen 325 mg capsule 650 mg (2 x 325 mg) PO Q6H PRN 07/31/25 pain, mild #90 caps amlodipine 5 mg tablet 5 mg PO DAILY #90 tabs 07/31/25 clonidine HCl 0.1 mg tablet 0.1 mg PO BID #60 tabs 07/31/25 lisinopril 40 mg tablet 40 mg PO DAILY #90 tabs 07/31/25 oxycodone 5 mg capsule 5 mg PO TID PRN pain (scale score 07/31/25 7-10) #15 caps amoxicillin 875 mg-potassium 1 tab PO BID #14 tabs 08/17/25 clavulanate 125 mg tablet cyclobenzaprine 5 mg tablet 5 mg PO BID PRN muscle spasm #10 08/17/25 tabs doxycycline hyclate 100 mg tablet 100 mg PO BID 7 days #14 tabs 08/17/25 ondansetron HCl 4 mg tablet 4 mg PO BID PRN nausea and 08/17/25 vomiting 4 days #8 tabs Allergies Allergy/AdvReac Type Severity Reaction Status Date / Time hydroxyzine (From [facility]ISTAR[facility]) Allergy Intermediate RASH, Verified 08/17/25 04:28 ANXIOUS quetiapine (Seroquel) AdvReac Intermediate Unknown Verified 08/17/25 04:28 Review of Systems Review of Systems: CONST: Negative for fever, body aches and chills. HENT: Negative for neck pain/stiffness, headache, congestion, sore throat, swelling. EYES: Negative for discharge/pain or vision changes. RESP: Negative for cough/hemoptysis and shortness of breath. CV: Negative chest pain, difficulty breathing, palpitations. ABD: Negative pain, nausea, vomiting. : Negative increase frequency, dysuria, blood in urine or stool. MUSC: Negative for muscle aches, edema. POS cervical/lumbar back pain SKIN: Negative rash, lesions/sores. NEURO: Negative headache, dizziness, weakness. Yes all other systems are reviewed and are negative [facility] Past Medical History Attestation statement: The following information was validated with the patient. 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 Mother No problems noted. Social History Social History Household Members: Family Household Members Other:: mother Housing: House Do you presently have visiting nurse or other home services: No Unable to assess alcohol history related to: Unknown Alcohol intake: never Patient Tobacco Use Status: Current someday Tobacco user Tobacco use type: Cigarette Cigarettes Per Day: 3 Years Smoked: 33 Smoked in Last 30 Days: Yes e-Cigarette/Vaping Use: Currently Using Second Hand Smoke Exposure: No Use of substances other than those prescribed or required for medical reasons: Unknown Substance Use Type: Marijuana Advance Directives: Yes Advance Directives on File: Yes Advance Directives Date on File: 08/29/20 Do you have a plan to hurt others: No Plan service: No Current occupational status: unemployed Physical Exam ED Vital Signs: Vital Signs - 24 hr 08/17/25 04:23 08/17/25 08:27 08/17/25 09:45 Temperature 98.1 F 98.7 F 98.6 F Pulse Rate 122 H 132 H Respiratory Rate 20 18 16 Blood Pressure 177/101 H 166/98 H 170/98 H Pulse Oximetry 98 99 96 Oxygen Delivery Method Room Air Room Air Room Air 08/17/25 11:01 08/17/25 12:59 08/17/25 15:31 Temperature 98.7 F Pulse Rate 112 H 102 H 105 H Respiratory Rate 18 18 16 Blood Pressure 167/86 H 172/92 H 173/97 H Pulse Oximetry 96 98 95 Oxygen Delivery Method Room Air Room Air Room Air 08/17/25 16:12 08/17/25 18:10 Temperature 98.1 F Pulse Rate 105 H 92 Respiratory Rate 18 18 Blood Pressure 191/104 H 195/100 H Pulse Oximetry 95 95 Oxygen Delivery Method Room Air Room Air BMI result Body Mass Index 23.0 GENERAL APPEARANCE: ?AxOx4, nontoxic appearing, no acute distress. HEENT: ?NC, AT. MMM. EOMI, clear conjunctiva, oropharynx clear. NECK: ?Supple without lymphadenopathy.? No stiffness or restricted ROM, TTP of B/L cervical paraspinal muscles, left side trapezius with significant tension to palpation, no midline cervical spinal tenderness, no bony step-offs palpated or observed, no overlying skin changes HEART:? Normal rate and regular rhythm, normal S1/S1, no m/r/g LUNGS:? CTAB, moving air well. No crackles or wheezes are heard. ABDOMEN: ?Soft, nontender, nondistended with good bowel sounds heard. BACK: No CVAT, no obvious deformity. TTP of B/L lumbar paraspinal muscles, no midline spinal tenderness, no bony step-offs palpated or observed, no overlying skin changes, ROM intact, ambulating with slow and steady gait due to lumbar back pain. EXTREMITIES: ?Without cyanosis, clubbing or edema. NEUROLOGICAL: ?Grossly nonfocal. Alert and oriented, moving all 4 extremities. Skin: ?Warm and dry without any rash. Course Reevaluation(s) Reevaluation #1: Patient with tachycardia jumping from 113 to 120s, patient states this is because he is still experiencing significant pain. Patient being medicated with 5 mg IV Valium Time: 08:54 Reevaluation #2: tachycardia has not resolved. Patient being medicated with 1L IV fluids Time: 10:12 Reevaluation #3: I repeated CMP on this patient due to hypomagnesemia which has increased from 1.3-1.8. Random glucose level of 60, patient asymptomatic, states he has not increased his insulin recently. I counseled patient to hold his insulin dose for tonight, and follow up with his primary care provider for concerns of hypoglycemia. Patient is in agreement with the plan. Time: 18:10 Medications Administered Discontinued Medications Generic Name Dose Route Start Last Admin Trade Name Marloq PRN Reason Stop Dose Admin Diazepam 5 mg 08/17/25 08:53 08/17/25 08:59 Diazepam 10 Mg/2 Ml Cartridge IVPUSH 08/17/25 08:54 5 mg STAT STA Administration Droperidol 1.25 mg 08/17/25 07:23 08/17/25 07:47 Droperidol 5 Mg/2 Ml Vial IVPUSH 08/17/25 07:24 1.25 mg ONCE ONE Administration Glucose 15 gm 08/17/25 18:07 08/17/25 18:12 Glucose Gel 15 Gm Gel..Gram. PO 08/17/25 18:08 15 gm ONCE ONE Administration Acetaminophen 1,000 mg in 100 mls @ 400 mls/hr 08/17/25 07:23 08/17/25 08:05 Ofirmev IV 08/17/25 07:37 Infused ONCE ONE Infusion Lactated Ringer's 1,000 mls @ 999 mls/hr 08/17/25 10:11 08/17/25 11:08 Lr IV 08/17/25 11:11 Infused .Q1H1M ONE Infusion Lactated Ringer's 1,000 mls @ 999 mls/hr 08/17/25 11:38 08/17/25 12:58 Lr IV 08/17/25 12:38 Infused .Q1H1M ONE Infusion Magnesium Sulfate 2 gm in 50 mls @ 150 mls/hr 08/17/25 14:25 08/17/25 15:22 Magnesium Sulfate/H2o IV 08/17/25 14:44 Infused ONCE ONE Infusion Ketorolac Tromethamine 15 mg 08/17/25 11:12 08/17/25 11:22 Ketorolac Tromethamine 15 Mg/Ml Vial IVPUSH 08/17/25 11:13 15 mg ONCE ONE Administration Morphine Sulfate 4 mg 08/17/25 07:23 08/17/25 07:47 Morphine Sulfate 4 Mg/Ml Cartridge IVPUSH 08/17/25 07:24 4 mg ONCE ONE Administration Protocol Morphine Sulfate 4 mg 08/17/25 15:20 08/17/25 15:27 Morphine Sulfate 4 Mg/Ml Cartridge IVPUSH 08/17/25 15:21 4 mg ONCE ONE Administration Protocol Ondansetron HCl 4 mg 08/17/25 16:46 08/17/25 16:52 Ondansetron Hcl 4 Mg/2 Ml Vial IVPUSH 08/17/25 16:47 4 mg ONCE ONE Administration Medical Decision Making Medical Decision Making MDM Narrative: 49-year-old male with medical history of chronic cervical radiculopathy, chronic lumbar radiculopathy following pain management, T2DM, alcohol use disorder presents to the ED due to acute on chronic cervical and lumbar back pain. With ?muscle spasms? beginning last night after turning in bed. Patient experiences nausea and vomiting when pain is exacerbated. Patient has history of lumbar and cervical back pain, this episode feels similar to his prior episodes without any change in quality or severity. Patient follows with pain management, and [facility] sports and spine. Patient has appointment in 1 month to discuss cortisone shots for lumbar back pain, patient has follow up with [facility] sports and spine in September to discuss possible surgery. Patient states 5 mg oxycodone has not help the pain, and comes to the emergency department for help with nausea and back pain. Patient has history of IVDU 12 years ago but is adamant he has not used any drugs for the past 12 years. Denies fevers/chills, injury/trauma/fall, saddle paresthesias, bowel/bladder incontinence, malignancy Labs reveal leukocytosis of 13.2 with a left shift of 76.2, macrocytic anemia with a hemoglobin of 12.9, hematocrit of 36, hypomagnesemia of 1.3, and a random glucose level of 59. Patient was given 2 apple juices, turkey sandwich with a POC of 85. Patient with episode of hypoglycemia originally of 59, had improved to 85, on repeat labs serum glucose is 60. I counseled patient to hold his insulin tonight, and resume regular scheduled insulin tomorrow. I counseled patient to follow up with his primary care doctor. On chart review, patient had CT lumbar spine on 07/28/25 which reveals chronic L5 bilateral pars defects with grade 1 anterolisthesis of L5 over S1. L5-S1 broad-based disc bulge impinging on bilateral S1 nerve roots and exiting L5 nerve roots, mild bilateral L5/S1 neural foraminal stenosis. Patient sees pain management with most recent appointment on 08/07/2025 for lumbar radicular pain, MRI, and x-ray reveal bilateral L5 pars defects, mild anterior listhesis. the plan is for the patient to trial tobacco cessation for better surgical outcomes, discuss transforaminal injections for pain relief, and engage in core strengthening exercises to support the spine. Due to patient's pain not changing in quality or severity, without any new injury/fall/trauma, no saddle paresthesias or bowel/bladder incontinence no history of malignancy. Patient has history of IVDU however this was 12 years ago, patient is adamant that he has not used IV drugs within the last 12 years. Patient was medicated with 1 g IV Tylenol, IV droperidol for nausea, 4 mg IV morphine x2 for pain control with mild improvement of his symptoms. I considered admission due to leukocytosis, and history of IVDU with lumbar back pain. However patient is afebrile, has been vomiting today due to pain and is most likely the cause of his leukocytosis with lumbar pain most likely causing tachycardia. Patient does have a history of hypertension, but only takes his medication intermittently when he ?notices a high blood pressure pattern?. I counseled patient on hypertension, hypertension diagnosis, and had to manage hypertension with daily medications, as he will not always be hypertensive while on these medications. I spoke with hospitalist Dr. Bryon Ridley who discussed these elevations with me and patient is appropriate for outpatient MRI for further evaluation. I discussed this with patient, patient feels well enough to go home for self-care. Patient will be discharged with Flexeril, and an 7 day course of Augmentin and doxycycline for bacterial coverage. Counseled patient to be strict with Tylenol and ibuprofen every 6 hours, follow up with PCP, outpatient MRI for further evaluation, and pain management as I discussed with patient injections are most likely needed for optimal pain control. Patient feels well enough to go home for self care and is in agreement with the plan. Differential Diagnosis Differential Diagnoses: The differential diagnosis associated with the presentation includes Lumbar back strain Cervical back strain Lumbar radiculopathy Admission/Observation Consideration of admission/observation: Escalation of care including admission/observation considered Consult Healthcare Provider Management of the patient was discussed with: Hospitalist (Dr. Bryon Ridley ) Lab Data MDM Lab Attestation statement: I reviewed the patient's lab results. 08/17/25 13:07 08/17/25 17:29 Labs: Lab Results 08/17/25 08/17/25 08/17/25 Range/Units 13:07 16:08 16:29 WBC 13.2 H (4.8-10.8) X10*3/uL RBC 3.58 L (4.60-5.80) X10*6/uL Hgb 12.9 L (14.0-18.0) g/dl Hct 36.0 L (42.0-52.0) % MCV 100.6 H (80.0-98.0) fL MCH 36.0 H (27.0-33.0) pg MCHC 35.8 (31.0-36.0) g/dl RDW 12.4 (11.0-16.0) % Plt Count 141 L D (160-400) X10*3/uL MPV 9.3 L (9.4-12.4) fL Immature Gran % (Auto) 0.6 H (0.0-0.4) % Neut % (Auto) 76.2 H (45-73) % Lymph % (Auto) 13.2 L (20-40) % Trego % (Auto) 9.5 (2-11) % Eos % (Auto) 0.0 (0-4) % Baso % (Auto) 0.5 (0-2) % Lymph # (Auto) 1.8 (1.2-4.9) X10*3/uL Trego # (Auto) 1.3 H (0.1-1.2) X10*3/uL Eos # (Auto) 0.0 (0.0-0.4) X10*3/uL Baso # (Auto) 0.1 (0.0-0.2) X10*3/uL Abs Immat Gran (auto) 0.08 H (0.00-0.03) X10*3/uL Absolute Neuts (auto) 10.1 H (2.0-8.3) x10*3/uL Absolute Nucleated RBC 0.000 (0.0-0.012) X10*3/uL Nucleated RBC % (auto) 0.0 (0.0-0.2) /100WBC ESR 1 (0-15) MM/HR Sodium 145 (135-145) mmol/L Potassium 3.6 (3.3-5.1) mmol/L Chloride 104 (96-108) mmol/L Carbon Dioxide 28 (22-29) mmol/L Anion Gap 17 (12-20) BUN 16 (9-16) mg/dL Creatinine 0.97 (0.5-1.4) mg/dL Estim Creat Clear Calc 96.3 Estimated GFR > 60 POC Glucose 85 (60-115) mg/dL Random Glucose 59 L* (60-115) mg/dL Calcium 7.7 L D (8.4-10.2) mg/dL Magnesium 1.3 L* (1.6-2.6) mg/dL Total Bilirubin 0.5 (0.0-1.0) mg/dL AST 58 H (5-37) U/L ALT 32 (0-40) U/L Alkaline Phosphatase 99 (39-117) U/L C-Reactive Protein < 0.04 (< or = 0.50) mg/dL Total Protein 5.3 L (6.5-8.0) g/dL Albumin 3.2 L (3.5-5.0) g/dL Urine Opiates Screen POSITIVE H (Not Detect) Ur Buprenorphine Scrn Not Detected (Not Detect) ng/mL Ur Oxycodone Screen Not Detected (Not Detect) ng/mL Urine Methadone Screen Not Detected (Not Detect) ng/mL Urine Fentanyl Screen POSITIVE H (Not Detect) Ur Barbiturates Screen Not Detected (Not Detect) Ur Phencyclidine Scrn Not Detected (Not Detect) Ur Amphetamines Screen Not Detected (Not Detect) U Benzodiazepines Scrn POSITIVE H (Not Detect) Urine Cocaine Screen Not Detected (Not Detect) U Marijuana (THC) Screen POSITIVE H (Not Detect) Ethyl Alcohol 31 mg/dL 08/17/25 Range/Units 17:29 WBC (4.8-10.8) X10*3/uL RBC (4.60-5.80) X10*6/uL Hgb (14.0-18.0) g/dl Hct (42.0-52.0) % MCV (80.0-98.0) fL MCH (27.0-33.0) pg MCHC (31.0-36.0) g/dl RDW (11.0-16.0) % Plt Count (160-400) X10*3/uL MPV (9.4-12.4) fL Immature Gran % (Auto) (0.0-0.4) % Neut % (Auto) (45-73) % Lymph % (Auto) (20-40) % Trego % (Auto) (2-11) % Eos % (Auto) (0-4) % Baso % (Auto) (0-2) % Lymph # (Auto) (1.2-4.9) X10*3/uL Trego # (Auto) (0.1-1.2) X10*3/uL Eos # (Auto) (0.0-0.4) X10*3/uL Baso # (Auto) (0.0-0.2) X10*3/uL Abs Immat Gran (auto) (0.00-0.03) X10*3/uL Absolute Neuts (auto) (2.0-8.3) x10*3/uL Absolute Nucleated RBC (0.0-0.012) X10*3/uL Nucleated RBC % (auto) (0.0-0.2) /100WBC ESR (0-15) MM/HR Sodium 145 (135-145) mmol/L Potassium 3.3 (3.3-5.1) mmol/L Chloride 102 (96-108) mmol/L Carbon Dioxide 32 H (22-29) mmol/L Anion Gap 14 (12-20) BUN 15 (9-16) mg/dL Creatinine 0.99 (0.5-1.4) mg/dL Estim Creat Clear Calc 94.4 Estimated GFR > 60 POC Glucose (60-115) mg/dL Random Glucose 60 (60-115) mg/dL Calcium 8.1 L (8.4-10.2) mg/dL Magnesium 1.8 (1.6-2.6) mg/dL Total Bilirubin 0.9 (0.0-1.0) mg/dL AST 64 H (5-37) U/L ALT 31 (0-40) U/L Alkaline Phosphatase 105 (39-117) U/L C-Reactive Protein (< or = 0.50) mg/dL Total Protein 5.6 L (6.5-8.0) g/dL Albumin 3.5 (3.5-5.0) g/dL Urine Opiates Screen (Not Detect) Ur Buprenorphine Scrn (Not Detect) ng/mL Ur Oxycodone Screen (Not Detect) ng/mL Urine Methadone Screen (Not Detect) ng/mL Urine Fentanyl Screen (Not Detect) Ur Barbiturates Screen (Not Detect) Ur Phencyclidine Scrn (Not Detect) Ur Amphetamines Screen (Not Detect) U Benzodiazepines Scrn (Not Detect) Urine Cocaine Screen (Not Detect) U Marijuana (THC) Screen (Not Detect) Ethyl Alcohol mg/dL Independent Historian Clinical information obtained from an independent historian. History obtained from or confirmed by: EMS External Record Review External record reviewed: Inpatient record, Office record and Outpatient record Chronic Conditions Patient?s care impacted by: Diabetes and Other (Alcohol use disorder, chronic cervical radiculopathy, chronic lumbar back pain) Social Determinants Patient?s care significantly limited by Social Determinants of Health including: Other Social Determinant of Health Discharge Plan Discharge Clinical Impression: Strain of lumbar region Patient Disposition: Home, Self-Care Additional Instructions: You were evaluated in the ED today due to lumbar, and cervical back pain. You were medicated with IV droperidol, 1 g IV Tylenol, and 4 mg IV morphine for pain control. Please continue to follow up with pain management to discuss potential injections for pain relief, and [facility] spine and sports to discuss potential need for surgery. Continue to engage in core strengthening exercises which is recommended by her pain management doctors. Your magnesium was low today while in the department, you were repleted with 2 g of IV magnesium. Recheck of your labs showed an increase of your magnesium from 1.3, to a normal level of 1.8. Please follow up with your primary care doctor on these findings You will be discharged with a 7 day course of doxycycline and Augmentin for bacterial coverage. 5 day course of Flexeril which is a muscle relaxer for back spasm. Additionally to manage pain at home, please take 500 mg of Tylenol, 400 mg of ibuprofen every 6 hours, and use heating pad over the affected areas. You have also been prescribed Zofran to manage your nausea at home. Please follow up with your primary care doctor, and pain management. You have an outpatient MRI scheduled, please follow up and get this imaging done for further evaluation of your back pain. Please return to the emergency department if you experience fevers over 100.4?, worsening back pain, numbness or tingling in your inner thighs, genitals or anal area, bowel or bladder incontinence, inability to ambulate, chest pain, shortness of breath, worsening vomiting, abdominal pain or any new/worsening/concerning symptoms. Prescriptions: New cyclobenzaprine 5 mg tablet 5 mg PO BID PRN (Reason: muscle spasm) Qty: 10 0RF doxycycline hyclate 100 mg tablet 100 mg PO BID 7 Days Qty: 14 0RF ondansetron HCl 4 mg tablet 4 mg PO BID PRN (Reason: nausea and vomiting) 4 Days Qty: 8 0RF amoxicillin-pot clavulanate 875-125 mg tablet 1 tab PO BID Qty: 14 0RF No Action (DME) insulin syringe-needle U-100 [BD Insulin Syringe] 0.3 mL 29 gauge x 1/2 syringe See Rx Instructions .ROUTE .MEDSUPPLY Qty: 150 5RF Rx Instructions: 4 times a day (DME) pen needle, diabetic [BD Felisha 2nd Gen Pen Needle] 32 gauge x 5/32 needle See Rx Instructions .ROUTE .MEDSUPPLY Qty: 50 4RF Rx Instructions: once a day (DME) 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 meter [FreeStyle Lite Meter] Kit See Rx Instructions .Route Qty: 1 0RF Rx Instructions: As directed-checks 4 X/day insulin lispro 100 unit/mL solution See Rx Instructions .ROUTE .COMPLEX Qty: 30 11RF Rx Instructions: UP TO 100 UNITS DAILY VIA INSULIN PUMP (TANDEM TSLIM x2) (DME) Tandem Mobi System Misc MISCELLANEOUS Rx Instructions: UP TO 100 UNITS INSULIN LISPRO DAILY VIA PUMP meloxicam 7.5 mg tablet 7.5 mg PO DAILY Qty: 20 0RF thiamine HCl (vitamin B1) 100 mg tablet 100 mg PO DAILY folic acid 1 mg tablet 1 mg PO DAILY omeprazole 40 mg capsule,delayed release(DR/EC) 40 mg PO DAILY gabapentin 400 mg capsule 400 mg PO BID baclofen 10 mg tablet 10 mg PO BID Rx Instructions: Do not take this medication before driving or going to work, it may make you feel drowsy. clonidine HCl 0.1 mg Tablet 0.1 mg PO BID Qty: 60 0RF Protocol: Hold for SBP< HOLD for SBP < : 90 Rx Instructions: Take one tablet twice a day for hypertension amlodipine 5 mg Tablet 5 mg PO DAILY Qty: 90 0RF Protocol: Hold for SBP< HOLD for SBP < : 90 Rx Instructions: Take one tablet daily for hypertension lisinopril 40 mg Tablet 40 mg PO DAILY Qty: 90 0RF Protocol: Hold for SBP< HOLD for SBP < : 90 Rx Instructions: Take one tablet twice a day for hypertension oxycodone 5 mg capsule 5 mg PO TID PRN (Reason: pain (scale score 7-10)) Qty: 15 0RF Rx Instructions: Partial Fill upon patient request. Take one tablet up to three times a day for severe pain. acetaminophen 325 mg capsule 650 mg PO Q6H PRN (Reason: pain, mild) Qty: 90 0RF Rx Instructions: Take two capsules up to four times a day for mild pain cholecalciferol (vitamin D3) 25 mcg (1,000 unit) tablet 25 mcg PO DAILY lidocaine [Lidoderm] 5 % adhesive patch,medicated 1 patch topical DAILY MDD remove after 12 hours PRN (Reason: pain) Qty: 30 0RF Rx Instructions: leave on most painful area for up to 12 hrs clonazepam 0.5 mg tablet 0.5 mg PO BEDTIME Rx Instructions: AT BEDTIME (DME) FreeStyle Lite Strips Strip See Rx Instructions .ROUTE .MEDSUPPLY Qty: 300 11RF Rx Instructions: 4x daily (DME) lancets [FreeStyle Lancets] 28 gauge misc See Rx Instructions .Route Qty: 100 5RF Rx Instructions: As directed 4 X/day (DME) Ketone Urine Test Strip See Rx Instructions .ROUTE .MEDSUPPLY Qty: 25 1RF Rx Instructions: prn tid for nausea, vomiting, illness, glucose remaining over 250 (DME) Dexcom G6 Building Insulation Installer Misc See Rx Instructions .Route Rx Instructions: As directed Print Language: Bolivian
[2025-08-17] MEDS: diazePAM 10 MG/2 ML CARTRIDGE 5 MG IVPUSH (08:59)
[2025-08-17] MEDS: Lactated Ringers 1,000 ML 999 ML IV ×2 (10:00→11:48)
[2025-08-17 13:12] LABS: MANUAL DIFF FLAG NO
[2025-08-17 13:14] LABS: Hematocrit 36.0 % (42.0-52.0); Hemoglobin 12.9 g/dl (14.0-18.0); Imm Gran Abs Auto 0.08 X10*3/uL (0.00-0.03); Imm Gran Pct Auto 0.6 % (0.0-0.4); Lymphocytes Absolute Auto 1.8 X10*3/uL (1.2-4.9); Mean Corpuscular HGB Conc 35.8 g/dl (31.0-36.0); Mean Corpuscular Hemoglobin 36.0 pg (27.0-33.0); Mean Corpuscular Volume 100.6 fL (80.0-98.0); NRBC Abs Auto 0.000 X10*3/uL (0.0-0.012); NRBC Pct Auto 0.0 /100WBC (0.0-0.2); Platelet Count 141 X10*3/uL (160-400); Red Blood Count 3.58 X10*6/uL (4.60-5.80); White Blood Count 13.2 X10*3/uL (4.8-10.8)
[2025-08-17 14:08] LABS: Alanine Aminotransferase 32 U/L (0-40); Albumin Level 3.2 g/dL (3.5-5.0); Alkaline Phosphatase 99 U/L (39-117); Anion Gap 17 (12-20); Aspartate Amino Transferase 58 U/L (5-37); Blood Urea Nitrogen 16 mg/dL (9-16); Calcium 7.7 mg/dL (8.4-10.2); Carbon Dioxide 28 mmol/L (22-29); Chloride 104 mmol/L (96-108); Creatinine Clr Calc Pharmacy 96.3; Estimated Glomerular Filt Rate > 60; Magnesium 1.3 mg/dL (1.6-2.6); Potassium 3.6 mmol/L (3.3-5.1); Sodium 145 mmol/L (135-145); Total Protein 5.3 g/dL (6.5-8.0)
[2025-08-17] MEDS: Magnesium Sulfate/H2O 2 GM/50 ML PIGGYBACK IV (14:37)
[2025-08-17 16:12] LABS: Glucose, Whole Blood 85 mg/dL (60-115)
[2025-08-17 16:45] LABS: Erythrocyte Sedimentation Rate 1 MM/HR (0-15)
[2025-08-17 16:49] LABS: Cannabinoid Screen Urine POSITIVE (Not Detect)
[2025-08-17 18:06] LABS: Alanine Aminotransferase 31 U/L (0-40); Albumin Level 3.5 g/dL (3.5-5.0); Alkaline Phosphatase 105 U/L (39-117); Aspartate Amino Transferase 64 U/L (5-37); Blood Urea Nitrogen 15 mg/dL (9-16); Calcium 8.1 mg/dL (8.4-10.2); Creatinine Clr Calc Pharmacy 94.4; Estimated Glomerular Filt Rate > 60; Magnesium 1.8 mg/dL (1.6-2.6); Total Protein 5.6 g/dL (6.5-8.0)
[2025-08-17] MEDS: Glucose Gel 15 GM GEL..GRAM. PO (18:12)
[2025-08-17 18:15] LABS: Anion Gap 14 (12-20); Carbon Dioxide 32 mmol/L (22-29); Chloride 102 mmol/L (96-108); Potassium 3.3 mmol/L (3.3-5.1); Sodium 145 mmol/L (135-145)
--- NOTE | 2025-08-17 18:16 | PC.NURSE ---
Addendum entered by Loli Loja RN 08/17/25 18:25: number to call [phone] Original Note: T/W took phone call from [employer] regarding pt - confirmed pt is in dept, [employer] requesting if [employer] can be called on discharge so pt can be served various warrants. Primary RN shane made aware.
== END 2025-08-17 18:53 | disposition home or self-care (01) ==
PROVIDERS: Emergency Provider Emergency Medicine
DX: S39.012A Strain of muscle, fascia and tendon of lower back, initial encounter (principal); X58.XXXA Exposure to other specified factors, initial encounter; Y93.9 Activity, unspecified; Y92.9 Unspecified place or not applicable; Y99.9 Unspecified external cause status; M54.2 Cervicalgia; E10.9 Type 1 diabetes mellitus without complications; E83.42 Hypomagnesemia; R00.0 Tachycardia, unspecified; Z79.899 Other long term (current) drug therapy; Z79.4 Long term (current) use of insulin
CPT/HCPCS: 36415; 80053; 80307; 82947; 83735; 85025; 85652; 86140; 96361; 96365; 96367; 96375; 96376; 99284; 99285; J0131; J1790; J1885; J2270; J2405; J3360; J3475; J7120

== ENCOUNTER 2025-09-17 21:13 | Emergency (ER) | payer MEDICAID, SELFPAY ==
[2025-09-17 21:19] VITALS: BP 110/70; PULSE 80; O2SAT 94
[2025-09-17 21:25] VITALS: BP 104/54; PULSE 89; RESP 20; TEMP 36.6; O2SAT 99; BMI 22.4
--- NOTE | 2025-09-17 21:30 | PC.NURSE ---
@approximately 2120 pt BIBA @approximately this time pt changed over into [facility] gown, searched by security, initially calm and cooperative and belongings secured, pt requesting food and drink. This RN stated to the pt that he will receive a sandwich and drink in a few minutes @approximately 2140 pt noted to be going through patient fridge looking for sandwich and drink by charge nurse, pt redirected to stretcher and educated that he must ask staff members in order to receive a drink and sandwich per policy, pt became slightly agitated and stated he spoke with a woman 30 minutes prior about a snack and he never received one. ink printer provided the pt w/ gingerale and sandwich, pt sitting in hospital stretcher.
--- OUTSIDE RECORDS SUMMARY | 2025-09-17 22:02 | XMS_ITS | Clinical Summary ---
Author Organization [facility], Address [address] [place] [address] [place] [address] Phone Care Team Providers Care Archival Studies Professor Name Role Phone Niru Crawford Primary Care Provider [phone] Allergies Active Allergy Reactions Criticality Noted Date [...] Visit [facility] [place], [address] [place] [address] Juan Yee MD Proteinuria, not otherwise specified [...] Visit [facility], [address] [place] [address] Juan Yee MD [address] [place] [address] Health Maintenance Due Date Last [...] 49 Years) Discontinued 09/22/2019, 09/04/2010, 08/18/2008 Insurance Formerly [facility] Care Teams Archival Studies Professor Relationship Specialty Start Date End Date Niru Crawford [address] [place] [address] PCP - General 11/08/24
--- OUTSIDE RECORDS SUMMARY | 2025-09-17 22:02 | XMS_ITS | Encounter Summary ---
Author Organization [facility] Address [address] [place] [address] Phone Care Team Providers Care Top Steep Tender Name Role Phone Niru Crawford Primary Care Provider [phone] Encounter Details Date Type Department Care Team (Late st Contact Info) Description 09/30/2023 Documentation Only [facility] [address] [place] [id number] Linda Carrasquillo NP Social History Tobacco Use [...] Visit [facility] [address] [place] [address] Juan Yee MD [address] [place] [address] [place] [id number] documented as of this encounter Visit Diagnoses Not on filedocumented in this encounter Care Teams Top Steep Tender Relationship Specialty Start Date End Date Yvette Niru [address] [place] [address] PCP - General 11/08/24 documented as of this encounter
[2025-09-17 22:35] LABS: Hematocrit 35.7 % (42.0-52.0); Hemoglobin 12.4 g/dl (14.0-18.0); Mean Corpuscular HGB Conc 34.7 g/dl (31.0-36.0); Mean Corpuscular Hemoglobin 35.8 pg (27.0-33.0); Mean Corpuscular Volume 103.2 fL (80.0-98.0); NRBC Abs Auto 0.000 X10*3/uL (0.0-0.012); NRBC Pct Auto 0.0 /100WBC (0.0-0.2); Platelet Count 113 X10*3/uL (160-400); Red Blood Count 3.46 X10*6/uL (4.60-5.80); White Blood Count 8.1 X10*3/uL (4.8-10.8)
--- NOTE | 2025-09-17 22:45 | PC.NURSE ---
@approximately this time pt was noted to be going through pt fridge once again, charge account authorizer redirected the pt back to [facility], pt agitated and stated that he asks staff for food and has not recieved any all night, pt educated that he has received a sandwich, and was provided 3 more by charge as well as 3 gingerale along with some pudding. pt was educated that he must request snacks and drinks from staff per policy and cannot help himself to the pt fridge for infection control reasoning.
[2025-09-17 22:50] LABS: Alanine Aminotransferase 42 U/L (0-40); Albumin Level 3.9 g/dL (3.5-5.0); Alkaline Phosphatase 199 U/L (39-117); Anion Gap 13 (12-20); Aspartate Amino Transferase 49 U/L (5-37); Blood Urea Nitrogen 28 mg/dL (9-16); Calcium 9.0 mg/dL (8.4-10.2); Carbon Dioxide 26 mmol/L (22-29); Chloride 101 mmol/L (96-108); Creatinine Clr Calc Pharmacy 54.4; Estimated Glomerular Filt Rate 44; Potassium 3.8 mmol/L (3.3-5.1); Sodium 136 mmol/L (135-145); Total Protein 5.9 g/dL (6.5-8.0)
[2025-09-17 22:54] LABS: Cannabinoid Screen Urine POSITIVE (Not Detect)
--- NOTE | 2025-09-17 23:45 | PC.NURSE ---
pt noted to be asking for his cellphone at this time, pt educated that during his foreign exchange services manager into hospital gown, security searched his belonging for safety and secured all his belonging including his cellphone pt became agitated stating I am here frequently that doesn't happen, it's always different every time I come here pt educated that per policy all pt's changed over into green gowns and and searched by security has all their belonging secured and will be returned to them once they are discharged pt appears to be calm sitting upright in stretcher eating his snacks, mumbling to himself.
--- NOTE | 2025-09-18 00:12 | PC.NURSE ---
@approximately this time pt stating If I am not seen within an hour I am leaving, I haven't gotten any pain medication, no food, nothing! pt educated that he has recieved at least 4 to 5 sandwiches since arriving to the ED, 4 gingerale's and 2 cups of pudding to which he has eaten everything and that he is waiting for a provider to assess him before providing pain medication. Pt then requested a blanket, warm blanket provided, pt laying semi wallace's in hospital stretcher continues to mumble to self
[2025-09-18 06:13] VITALS: BP 133/71; PULSE 87; RESP 14; TEMP 37; O2SAT 97
--- NOTE | 2025-09-18 06:58 | ED.ALCOHOL ---
HPI - Alcohol General Chief Complaint: ETOH/Substance Use Stated Complaint: ETOH hetal called 911 to have him removed Time Seen by Provider: 09/18/25 00:31 Source: patient, EMS, RN notes reviewed, old records reviewed and police Mode of arrival: EMS Limitations: no limitations History of Present Illness ED Provider: Dr. Janay Collazo HPI narrative: 49-year-old male with a history of alcohol use, chronic back pain, anxiety and depression presenting by EMS after police were called to the home for domestic assault. Patient was reportedly becoming aggressive and got into a verbal altercation with his mother with whom he lives. According to EMS, patient's mother ?wanted him out of the house?. Patient states that he has been drinking alcohol today but denies other illicit substance use. Admits that he gets aggravated towards his mother when she nags him about his drinking. Patient reports that he takes oxycodone for chronic back pain but has not had anything for his pain this evening. Admits to drinking ?a few beers tonight?. Denies new pain or recent illness. No suicidal or homicidal ideations. Related Data Home Medications ?Medication ?Instructions ?Recorded ?Confirmed clonazepam 0.5 mg tablet 0.5 mg PO BEDTIME Anxiety 07/16/21 08/07/25 subcutaneous insulin pump (Tandem 12/29/24 05/10/25 Snapsheet System) cholecalciferol (vitamin D3) 25 25 mcg PO DAILY 01/16/25 08/07/25 mcg (1,000 unit) tablet 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,refrigeration service inspector,cont 05/10/25 05/10/25 (Dexcom G6 Poultry Packer) folic acid 1 mg tablet 1 mg PO DAILY 05/16/25 08/07/25 omeprazole 40 mg capsule,delayed 40 mg PO DAILY 05/16/25 08/07/25 release thiamine HCl (vitamin B1) 100 mg 100 mg PO DAILY 05/16/25 08/07/25 tablet baclofen 10 mg tablet 10 mg PO BID muscle spasm 07/28/25 08/07/25 gabapentin 400 mg capsule 400 mg PO BID pain (scale score 07/28/25 08/07/25 4-6) Previous Rx's ?Medication ?Instructions ?Recorded insulin syringe-needle U-100 0.3 #150 ea 08/29/20 mL 29 gauge x 1/2 (BD Insulin Syringe) pen needle, diabetic 32 gauge x #50 ea 11/18/20 5/32 (BD Felisha 2nd Gen Pen Needle) 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 meter (FreeStyle #1 ea 10/22/22 Lite Meter kit) blood sugar diagnostic (FreeStyle #300 ea 02/19/23 Lite Strips) lancets 28 gauge (FreeStyle #100 ea 02/19/23 Lancets) acetone (urine) test (Ketone Urine #25 ea 11/02/24 Test strips) insulin lispro 100 unit/mL See Rx Instructions .Route 02/22/25 subcutaneous solution .COMPLEX #30 mL lidocaine 5 % topical patch 1 patch topical DAILY PRN pain #30 03/04/25 (Lidoderm) ea meloxicam 7.5 mg tablet 7.5 mg PO DAILY #20 tabs 03/14/25 acetaminophen 325 mg capsule 650 mg (2 x 325 mg) PO Q6H PRN 07/31/25 pain, mild #90 caps amlodipine 5 mg tablet 5 mg PO DAILY #90 tabs 07/31/25 clonidine HCl 0.1 mg tablet 0.1 mg PO BID #60 tabs 07/31/25 lisinopril 40 mg tablet 40 mg PO DAILY #90 tabs 07/31/25 oxycodone 5 mg capsule 5 mg PO TID PRN pain (scale score 07/31/25 7-10) #15 caps amoxicillin 875 mg-potassium 1 tab PO BID #14 tabs 08/17/25 clavulanate 125 mg tablet cyclobenzaprine 5 mg tablet 5 mg PO BID PRN muscle spasm #10 08/17/25 tabs doxycycline hyclate 100 mg tablet 100 mg PO BID 7 days #14 tabs 08/17/25 ondansetron HCl 4 mg tablet 4 mg PO BID PRN nausea and 08/17/25 vomiting 4 days #8 tabs Allergies Allergy/AdvReac Type Severity Reaction Status Date / Time hydroxyzine (From [facility]ISTARIL) Allergy Intermediate RASH, Verified 09/17/25 21:27 ANXIOUS quetiapine (Seroquel) AdvReac Intermediate Unknown Verified 09/17/25 21:27 Review of Systems Review of Systems: As per HPI, full review of systems performed and negative but for the above mentioned pertinent positives and negatives. 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 Mother No problems noted. Social History Social History Household Members: Family Household Members Other:: mother Housing: House Do you presently have visiting nurse or other home services: No Alcohol intake: never Patient Tobacco Use Status: Current someday Tobacco user Tobacco use type: Cigarette Cigarettes Per Day: 3 Years Smoked: 33 e-Cigarette/Vaping Use: Currently Using Second Hand Smoke Exposure: No Substance Use Type: Marijuana Advance Directives Date on File: 08/29/20 service: No Current occupational status: unemployed Physical Exam ED Exam Exam: GENERAL: Appears intoxicated, GCS 14, eyes open to voice, slurred speech, no acute distress. SKIN: Normal skin color for ethnicity, warm, dry, no rashes noted. HEENT: Normocephalic, atraumatic, no stridor, posterior oropharynx nonerythematous, dentition intact, EOMI, pupils are pinpoint bilaterally, reactive to light. NECK: Soft, supple, no step-offs, no deformities, no lymphadenopathy. CHEST: Heart regular tachycardia, no murmurs, symmetric chest rise and fall. PULMONARY: Clear to auscultation bilaterally, diminished at the bases, no labored breathing, no wheezes/rhales/rhonchi. ABDOMINAL: Soft, nondistended, positive bowel sounds in all quadrants. : Deferred. MUSCULOSKELETAL: Normal tone, full range of motion, no deformities, no peripheral edema. NEURO: GCS 14, slightly slurred speech, CN II through XII intact, equal strength and sensation bilateral upper and lower extremities, no focal neurologic deficits. PSYCHIATRIC: Flat affect, poor eye contact. Vital Signs: Vital Signs - 24 hr 09/17/25 21:25 09/18/25 06:13 Temperature 97.9 F 98.6 F Pulse Rate 89 87 Respiratory Rate 20 14 Blood Pressure 104/54 L 133/71 Pulse Oximetry 99 97 Oxygen Delivery Method Room Air Room Air BMI result Body Mass Index 22.4 Medical Decision Making Medical Decision Making [facility] Narrative: Patient presents with behavioral complaints. Differential diagnosis includes alcohol intoxication, alcohol withdrawal, suicidal ideations, homicidal ideations, depression, anxiety, mood disorder, decompensated mental illnesses such as schizophrenia or bipolar disorder, medication noncompliance, among many others. Medical clearance protocol was initiated. Patient has no current psychologic complaints. Admits that he has issues living with his mother. He does not wish to seek treatment for alcohol detox today or for any other medical complaints. He is ambulatory in the emergency department, clear speech, steady gait, clinically sober. Using shared decision making, plan for discharge home to follow-up with primary care and/or specialist. Patient understands and agrees with plan for discharge. Discharged home in stable condition. Differential Diagnosis Differential Diagnoses: The differential diagnosis associated with the presentation includes (As above) Admission/Observation Consideration of admission/observation: Escalation of care including admission/observation considered Lab Data [facility] Lab Attestation statement: I reviewed the patient's lab results. 09/17/25 22:30 09/17/25 22:30 Labs: Lab Results 09/17/25 09/17/25 Range/Units 22:30 22:39 WBC 8.1 (4.8-10.8) X10*3/uL RBC 3.46 L (4.60-5.80) X10*6/uL Hgb 12.4 L (14.0-18.0) g/dl Hct 35.7 L (42.0-52.0) % MCV 103.2 H (80.0-98.0) fL MCH 35.8 H (27.0-33.0) pg MCHC 34.7 (31.0-36.0) g/dl RDW 13.5 (11.0-16.0) % Plt Count 113 L (160-400) X10*3/uL MPV 9.8 (9.4-12.4) fL Absolute Nucleated RBC 0.000 (0.0-0.012) X10*3/uL Nucleated RBC % (auto) 0.0 (0.0-0.2) /100WBC Sodium 136 (135-145) mmol/L Potassium 3.8 (3.3-5.1) mmol/L Chloride 101 (96-108) mmol/L Carbon Dioxide 26 (22-29) mmol/L Anion Gap 13 (12-20) BUN 28 H (9-16) mg/dL Creatinine 1.67 H (0.5-1.4) mg/dL Estim Creat Clear Calc 54.4 Estimated GFR 44 Random Glucose 183 H (60-115) mg/dL Calcium 9.0 D (8.4-10.2) mg/dL Total Bilirubin 0.3 (0.0-1.0) mg/dL AST 49 H (5-37) U/L ALT 42 H (0-40) U/L Alkaline Phosphatase 199 H (39-117) U/L Total Protein 5.9 L (6.5-8.0) g/dL Albumin 3.9 (3.5-5.0) g/dL Urine Opiates Screen Not Detected (Not Detect) Ur Buprenorphine Scrn Not Detected (Not Detect) ng/mL Ur Oxycodone Screen Not Detected (Not Detect) ng/mL Urine Methadone Screen Not Detected (Not Detect) ng/mL Urine Fentanyl Screen Not Detected (Not Detect) Ur Barbiturates Screen Not Detected (Not Detect) Ur Phencyclidine Scrn Not Detected (Not Detect) Ur Amphetamines Screen Not Detected (Not Detect) U Benzodiazepines Scrn Not Detected (Not Detect) Urine Cocaine Screen Not Detected (Not Detect) U Marijuana (THC) Screen POSITIVE H (Not Detect) Ethyl Alcohol 197 mg/dL Independent Historian Clinical information obtained from an independent historian. History obtained from or confirmed by: EMS External Record Review External record reviewed: Inpatient record Chronic Conditions Patient?s care impacted by: Other (Alcohol use disorder) Social Determinants Patient?s care significantly limited by Social Determinants of Health including: Problems related to primary support group and Other Social Determinant of Health Medications Administered Discontinued Medications Generic Name Dose Route Start Last Admin Trade Name Freq PRN Reason Stop Dose Admin Acetaminophen 650 mg 09/18/25 07:21 09/18/25 07:42 Acetaminophen 325 Mg Tablet PO 09/18/25 07:22 650 mg ONCE ONE Administration Oxycodone HCl 5 mg 09/18/25 07:21 09/18/25 07:42 Oxycodone Hcl Immed Release 5 Mg Tablet PO 09/18/25 07:22 5 mg ONCE ONE Administration Discharge Plan Discharge Clinical Impression: Alcohol intoxication, Aggressive behavior of adult, Chronic back pain Patient Disposition: Home, Self-Care Instructions: Alcohol Intoxication (ED), Alcohol Intoxication (DC), Opioid Safety (ED) Additional Instructions: Alcohol use disorder You were seen in the Emergency Department today for treatment of alcohol use disorder.? You may have been given medications to help with your withdrawal symptoms.? Please do not drink alcohol with them. This is very dangerous and can cause respiratory depression or other adverse reactions depending on the medication. If you would like to cut down or stop your alcohol use please consider calling our outpatient Addiction Treatment office:? [facility] (-F [id number]) [address] [place] [id number] You have also been given a list of treatment providers in the area that can assist as well.? If you experience seizures, vomiting blood, black stools, falls, severe headache, chest pain, fevers, trouble breathing, hallucinations or any other concerns you need to call 911 or seek immediate care. Please stay hydrated. Prescriptions: No Action (DME) insulin syringe-needle U-100 [BD Insulin Syringe] 0.3 mL 29 gauge x 1/2 syringe See Rx Instructions .ROUTE .MEDSUPPLY Qty: 150 5RF Rx Instructions: 4 times a day (DME) pen needle, diabetic [BD Felisha 2nd Gen Pen Needle] 32 gauge x 5/32 needle See Rx Instructions .ROUTE .MEDSUPPLY Qty: 50 4RF Rx Instructions: once a day (DME) 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 meter [FreeStyle Lite Meter] Kit See Rx Instructions .Route Qty: 1 0RF Rx Instructions: As directed-checks 4 X/day insulin lispro 100 unit/mL solution See Rx Instructions .ROUTE .COMPLEX Qty: 30 11RF Rx Instructions: UP TO 100 UNITS DAILY VIA INSULIN PUMP (TANDEM TSLIM x2) (DME) Tandem Mobi System Misc MISCELLANEOUS Rx Instructions: UP TO 100 UNITS INSULIN LISPRO DAILY VIA PUMP meloxicam 7.5 mg tablet 7.5 mg PO DAILY Qty: 20 0RF thiamine HCl (vitamin B1) 100 mg tablet 100 mg PO DAILY folic acid 1 mg tablet 1 mg PO DAILY omeprazole 40 mg capsule,delayed release(DR/EC) 40 mg PO DAILY gabapentin 400 mg capsule 400 mg PO BID baclofen 10 mg tablet 10 mg PO BID Rx Instructions: Do not take this medication before driving or going to work, it may make you feel drowsy. clonidine HCl 0.1 mg Tablet 0.1 mg PO BID Qty: 60 0RF Protocol: Hold for SBP< HOLD for SBP < : 90 Rx Instructions: Take one tablet twice a day for hypertension amlodipine 5 mg Tablet 5 mg PO DAILY Qty: 90 0RF Protocol: Hold for SBP< HOLD for SBP < : 90 Rx Instructions: Take one tablet daily for hypertension lisinopril 40 mg Tablet 40 mg PO DAILY Qty: 90 0RF Protocol: Hold for SBP< HOLD for SBP < : 90 Rx Instructions: Take one tablet twice a day for hypertension oxycodone 5 mg capsule 5 mg PO TID PRN (Reason: pain (scale score 7-10)) Qty: 15 0RF Rx Instructions: Partial Fill upon patient request. Take one tablet up to three times a day for severe pain. acetaminophen 325 mg capsule 650 mg PO Q6H PRN (Reason: pain, mild) Qty: 90 0RF Rx Instructions: Take two capsules up to four times a day for mild pain cyclobenzaprine 5 mg tablet 5 mg PO BID PRN (Reason: muscle spasm) Qty: 10 0RF doxycycline hyclate 100 mg tablet 100 mg PO BID 7 Days Qty: 14 0RF ondansetron HCl 4 mg tablet 4 mg PO BID PRN (Reason: nausea and vomiting) 4 Days Qty: 8 0RF amoxicillin-pot clavulanate 875-125 mg tablet 1 tab PO BID Qty: 14 0RF cholecalciferol (vitamin D3) 25 mcg (1,000 unit) tablet 25 mcg PO DAILY lidocaine [Lidoderm] 5 % adhesive patch,medicated 1 patch topical DAILY MDD remove after 12 hours PRN (Reason: pain) Qty: 30 0RF Rx Instructions: leave on most painful area for up to 12 hrs clonazepam 0.5 mg tablet 0.5 mg PO BEDTIME Rx Instructions: AT BEDTIME (DME) FreeStyle Lite Strips Strip See Rx Instructions .ROUTE .MEDSUPPLY Qty: 300 11RF Rx Instructions: 4x daily (DME) lancets [FreeStyle Lancets] 28 gauge misc See Rx Instructions .Route Qty: 100 5RF Rx Instructions: As directed 4 X/day (DME) Ketone Urine Test Strip See Rx Instructions .ROUTE .MEDSULY Qty: 25 1RF Rx Instructions: prn tid for nausea, vomiting, illness, glucose remaining over 250 (DME) Dexcom G6 Poultry Packer Misc See Rx Instructions .Route Rx Instructions: As directed Interventions: ED Discharge Assessment Last Done: 09/18/25 08:03 Discharge Date/Time: 09/18/25 08:03 Print Language: Romansh
[2025-09-18] MEDS: oxyCODONE HCl Immed Release 5 MG TABLET PO (07:42)
[2025-09-18 08:03] VITALS: BP 133/71; PULSE 87; RESP 14; TEMP 37; O2SAT 97
== END 2025-09-18 08:03 | disposition home or self-care (01) ==
PROVIDERS: Emergency Provider Emergency Medicine
DX: F10.120 Alcohol abuse with intoxication, uncomplicated (principal); Y90.6 Blood alcohol level of 120-199 mg/100 ml; R45.6 Violent behavior; F91.9 Conduct disorder, unspecified; G89.29 Other chronic pain; M54.9 Dorsalgia, unspecified; F19.10 Other psychoactive substance abuse, uncomplicated; I10 Essential (primary) hypertension; E10.9 Type 1 diabetes mellitus without complications; F17.210 Nicotine dependence, cigarettes, uncomplicated; Z79.899 Other long term (current) drug therapy
CPT/HCPCS: 36415; 80053; 80307; 85027; 99284